=== PATIENT | male | born 1960 | race Caucasian/White ===

== ENCOUNTER 2022-10-14 12:42 | Inpatient (IN) ==
--- NOTE | 2022-10-14 13:39 | XRay Report ---
XR chest 2V PA/lateral CLINICAL HISTORY: Shortness of breath. COMPARISON STUDY: Thoracic spine CT April 28, 2020. FINDINGS: Moderate left lung volume loss is present. There is a small left pleural effusion. No pneum othorax. Right lung is clear. A 6.2 cm left perihilar mass-like opacity is present. There is moderate left lower lung airspace opacity. Cardiac size is normal. Leftward mediastinal shift and elevation o f the left hemidiaphragm is due to left lung volume loss. Old, healed distal right clavicular fractur e. IMPRESSION: 1. 6.2 cm left perihilar mass-like opacity with left lower lung airspace opacity and left lung volume loss. A chest CT with IV contrast is recommended to exclude a central obstructing mass. 2. Small left pleural effusion. ACT 112: Positive. There are findings on this exam that require communication between the performing entity and the patient following Patient Test Result Information Act ([place] Act 112) guidelines. Electronically signed by: Jace Call M.D. 10/14/2022 1:38 PM
[2022-10-14 14:01] LABS: Basophils # (auto) 0.02 K/uL (0-0.2); Basophils % (auto) 0.3 %; Eosinophils # (auto) 0.01 K/uL (0-0.50); Eosinophils % (auto) 0.1 %; Hematocrit (blood only) 40.6 % (40.1-51.0); Hemoglobin 13.6 g/dl (14.0-18.0); Immature Granulocytes # (auto) 0.02 K/uL (0.00-0.02); Immature Granulocytes % (auto) 0.3 %; Lymphocytes # (auto) 1.05 K/uL (1.2-3.4); Lymphocytes % (auto) 15.3 %; Mean Corpuscular Hgb Conc 33.5 g/dL (32.0-36.0); Mean Corpuscular Volume 86.6 fL (80.0-100.0); Mean Platelet Volume 9.8 fL (9.4-12.4); Monocytes # (auto) 0.65 K/uL (0.24-0.82); Monocytes % (auto) 9.4 %; Neutrophils # (auto) 5.13 K/uL (1.4-6.5); Neutrophils % (auto) 74.6 %; Platelet Count 193 K/uL (130-400); RDW Coefficient of Variation 13.2 % (11.5-14.5); Red Blood Count 4.69 M/uL (4.63-6.08); White Blood Count 6.88 K/ul (4.8-10.8)
[2022-10-14 14:17] LABS: Partial Thromboplastin Ratio 1.2; Partial Thromboplastin Time 33.6 Seconds (21.0-31.0); Prothrombin Time 10.3 Seconds (9.0-12.0)
[2022-10-14 14:28] LABS: Albumin Globulin Ratio 1.1 (0.9-2); BUN Creatinine Ratio 17.1 (10-20); Bilirubin,Total 0.4 mg/dl (0.2-1.0); Calcium 9.2 mg/dl (8.5-10.1); Creatinine Clr Calc Pharmacy 89.5 ml/min; Est GFR (African American) 114.1 ml/min; Est GFR (Non-African American) 98.5 ml/min; Globulin 3.7 gm/dl (2.5-4.0); Potassium 4.1 mmol/L (3.5-5.1); Total Protein 7.7 gm/dl (6.0-8.3); Troponin I High Sensitivity 3.6 pg/ml (0-20)
--- NOTE | 2022-10-14 14:40 | Electrocardiogram Report ---
Test Reason : Blood Pressure : / mmHG Vent. Rate : 097 BPM Atrial Rate : 097 BPM P-R Int : 116 ms QRS Dur : 092 ms QT Int : 346 ms P-R-T Axes : 072 080 069 degrees QTc Int : 439 ms Sinus rhythm with Premature atrial complexes Otherwise normal ECG No previous ECGs available Confirmed by Jordan Chen ([id number]) on 10/14/2022 2:39:56 PM Referred By: Confirmed By:Jordan Chen
[2022-10-14 15:04] LABS: Influenza B virus by PCR Negative (Neg); RSV by PCR Negative (Neg); SARS CoV2 RNA(COVID-19) Ceph NEGATIVE (Negative)
[2022-10-14 15:14] LABS: Influenza A virus by PCR Positive (Neg)
[2022-10-14] MEDS ORDERED: BENZONATATE 100 MG CAPSULE PO ONE (15:54)
[2022-10-14] MEDS ORDERED: KETOROLAC TROMETHAMINE 15 MG/ML VIAL IV ONE (15:54)
--- NOTE | 2022-10-14 16:02 | Emergency Department Note ---
Impression & Plan Breathlessness, Mass of left lung, Influenza A ED Provider Note Provider: Tomasz Calloway MD DATE OF SERVICE: 10/14/2022 CHIEF COMPLAINT: Shortness of breath, cough HISTORY OF PRESENT ILLNESS: Patient is a 61-year-old gentleman reporting over the past approximately 3 to 4 months (June) some worsening shortness of breath. States over the last 5 days more fatigued with increased cough. States he has a gurgling sensation prickly when he lays flat. Bit of pain across the chest he believes more from coughing. Reports some sinus congestion and mildly sore throat. Evidently he states his significant other is a bit ill as well. Denies significant vomiting or abdominal pain but reports a bit of nausea over the last couple of days; none currently.. States he has been losing some weight recently. States he has not seen anybody about this before and reports that he has not seen a doctor in about 8 years. PAST MEDICAL HISTORY: As noted above MEDICATIONS: Denies currently FMH: No reported history of lung cancer SOCIAL HISTORY: Former smoker, quit about 6 years ago PHYSICAL EXAM: GENERAL: alert and oriented in no acute distress on stretcher Head: normocephalic and atraumatic EYES: No injection, discharge or icterus. NECK: Trachea midline. ENT: Mucous membranes pink and moist. LUNGS: Airway patent. No retractions. Breath sounds some scattered rhonchi HEART: Regular rate and rhythm. No chest wall tenderness ABDOMEN: Soft and non-tender, without guarding or rebound. SKIN: Acyanotic, warm, dry, without rashes EXTREMITIES: Without swelling, tenderness or deformity NEUROLOGICAL: No focal deficits. No aphasia. No slurred speech. Ambulatory. EK bpm sinus rhythm with PACs. No PVC. No acute ST segment elevation or depression with QTC of 439 CONTINUOUS CARDIAC MONITORING: was ordered and showed a heart rate of 80s-90s bpm in normal sinus rhythm occasional PACs Patient's laboratory studies and imaging reviewed. Differential includes Reactive airway disease, pneumonia, pneumothorax, COPD, CHF, infections, cardiac ischemia, pulmonary embolism, musculoskeletal, gastrointestinal, as well as other pathologies. IMPRESSION/MEDICAL DECISION MAKING: Patient former smoker and has seen medical personnel in some years. Reports distantly on metformin. Has been losing weight recently. Chronic respiratory issues over the past several months. Worsened in the last approximately 4 to 5 days. Test positive for influenza A likely contributing to his cough and sinus symptoms. Reports a bit of chest discomfort mid to left chest prickly with cough. Denies leg swelling. Lower suspicion for VTE as he is not significant hypoxic but feels a bit short of breath predominantly at rest. Chest x-ray concerning for possible left lung mass. Borderline anemia but no significant leukocytosis. Very slight hyponatremia but no other severe electrolyte abno rmality. Glucose mildly elevated. No troponin elevation. Doubt this is cardiac in nature. Benign abdomen doubt acute intra-abdominal process question if some of his intermittent nausea has been related to the fluids has been only several days with this. Given the chest x-ray findings we will complete a CT of the chest for further evaluation of a possible mass particular that may have an obstructing quality. Patient does related that he was on some antibiotics a month or 2 ago that did not help. Given a Tessalon Perle and Toradol to help with symptoms here initially. Smoking history but quit previously; denies diagnosis of emphysema or COPD. CT imaging without evidence of blood clot noted per reports but evidence of a large left perihilar mass with possibly postobstructive pneumoni tis. Again without significant cytosis and positive flu believe likely more viral and lower suspicion for bacterial component. Did discuss with pulmonary here as well as the patient at bedside with concerns that this could represent an oncological process. Patient is a bit winded at rest although not hypoxic. Patient has significant concerns about being able to go home given this. Pulmonology anticipates bronchoscopy tomorrow for biopsy and further differentiation. Do not feel strongly either way regarding the use of Tamiflu and will defer to the hospitalist given that its been at least 5 days since the onset of his flu symptoms. Patient in agreement with this plan to stay for further work-up DIAGNOSIS: Left lung mass, shortness of breath, influenza A DISPOSITION: Hospitalist will evaluate Patient was agreeable with this plan. Past Med/Surg History Medical History (Updated 10/14/22 @ 19:13 by Bela Layton MD, [facility]) No pertinent past medical history Social History Smoking Status: Former smoker Preferred Language: Spanish Feels Safe at Home: Yes Allergies Allergies Allergy/AdvReac Type Severity Reaction Status Date / Time No Known Allergies Allergy Unverified 10/14/22 16:21 Home Meds Home Medications Medication Instructions Recorded Confirmed ibuprofen 200 mg tablet 400 mg PO Q6H PRN Pain 10/14/22 10/14/22 Results & Data (ED) Vital Signs Vital Signs - 24 hr 10/14/22 12:44 10/14/22 16:59 10/14/22 16:59 Temperature 36.9 C Temperature Source Temporal Artery Scan Pulse Rate 112 H Pulse Rate from SpO2 Sensor Respiratory Rate 20 18 Respiratory Effort / Characteristics Short of Breath Non-Labored Respiratory Depth Normal Respiratory Pattern Regular Blood Pressure 144/84 H Blood Pressure Mean 104 Blood Pressure Position Sitting Pulse Oximetry 95 Oxygen Delivery Method Room Air Room Air Sepsis Recent Fever Within 48 Hours No Sepsis New/Unexplained Change in Mental Status No Sepsis Action Taken by Nursing No Action Required 10/14/22 17:26 10/14/22 17:30 Temperature Temperature Source Pulse Rate 89 92 H Pulse Rate from SpO2 Sensor 88 94 H Respiratory Rate 22 22 Respiratory Effort / Characteristics Respiratory Depth Respiratory Pattern Blood Pressure 140/103 H Blood Pressure Mean 115 Blood Pressure Position Pulse Oximetry 97 97 Oxygen Delivery Method Sepsis Recent Fever Within 48 Hours Sepsis New/Unexplained Change in Mental Status Sepsis Action Taken by Nursing Laboratory Data 10/14/22 13:44 10/14/22 13:44 Lab Results 10/14/22 10/14/22 10/14/22 Range/Units 13:44 13:44 13:44 WBC 6.88 (4.8-10.8) K/ul RBC 4.69 (4.63-6.08) M/uL Hgb 13.6 L (14.0-18.0) g/dl Hct 40.6 (40.1-51.0) % MCV 86.6 (80.0-100.0) fL MCH 29.0 (25.0-34.0) pg MCHC 33.5 (32.0-36.0) g/dL RDW Std Deviation 41.0 (36.4-46.3) fL RDW Coeff of Mathieu 13.2 (11.5-14.5) % Plt Count 193 (130-400) K/uL MPV 9.8 (9.4-12.4) fL Immature Gran % (Auto) 0.3 % Neut % (Auto) 74.6 % Lymph % (Auto) 15.3 % [place] % (Auto) 9.4 % Eos % (Auto) 0.1 % Baso % (Auto) 0.3 % Neut # (Auto) 5.13 (1.4-6.5) K/uL Lymph # (Auto) 1.05 L (1.2-3.4) K/uL [place] # (Auto) 0.65 (0.24-0.82) K/uL Eos # (Auto) 0.01 (0-0.50) K/uL Baso # (Auto) 0.02 (0-0.2) K/uL Immature Gran # (Auto) 0.02 (0.00-0.02) K/uL PT 10.3 (9.0-12.0) Seconds INR 1.0 (0.9-1.1) APTT 33.6 H (21.0-31.0) Seconds PTT Ratio 1.2 Sodium 133 L (136-145) mmol/L Potassium 4.1 (3.5-5.1) mmol/L Chloride 99 (98-107) mmol/L Carbon Dioxide 26 (21-32) mmol/L Anion Gap 8 (3-11) BUN 13 (6-23) mg/dl Creatinine 0.76 (0.6-1.4) mg/dl Est Cr Clr Drug Dosing 89.5 ml/min Est GFR ( Amer) 114.1 ml/min Est GFR (Non-Af Amer) 98.5 ml/min BUN/Creatinine Ratio 17.1 (10-20) Glucose 113 H (70-99(Fasting)) mg/dl Calcium 9.2 (8.5-10.1) mg/dl Magnesium 2.0 (1.7-2.4) mg/dl Total Bilirubin 0.4 (0.2-1.0) mg/dl AST 15 (13-39) U/L ALT 9 (7-52) U/L Alkaline Phosphatase 86 (34-104) U/L Troponin I High Sens 3.6 (0-20) pg/ml Total Protein 7.7 (6.0-8.3) gm/dl Albumin 4.0 (3.4-5.0) gm/dl Globulin 3.7 (2.5-4.0) gm/dl Albumin/Globulin Ratio 1.1 (0.9-2) Procalcitonin (0-0.5) ng/ml SARS-CoV-2 (PCR) (Negative) Influenza Type A (PCR) (Neg) Influenza Type B (PCR) (Neg) RSV (RT-PCR) (Neg) 10/14/22 10/14/22 Range/Units 13:44 13:44 WBC (4.8-10.8) K/ul RBC (4.63-6.08) M/uL Hgb (14.0-18.0) g/dl Hct (40.1-51.0) % MCV (80.0-100.0) fL MCH (25.0-34.0) pg MCHC (32.0-36.0) g/dL RDW Std Deviation (36.4-46.3) fL RDW Coeff of Amthieu (11.5-14.5) % Plt Count (130-400) K/uL MPV (9.4-12.4) fL Immature Gran % (Auto) % Neut % (Auto) % Lymph % (Auto) % [place] % (Auto) % Eos % (Auto) % Baso % (Auto) % Neut # (Auto) (1.4-6.5) K/uL Lymph # (Auto) (1.2-3.4) K/uL [place] # (Auto) (0.24-0.82) K/uL Eos # (Auto) (0-0.50) K/uL Baso # (Auto) (0-0.2) K/uL Immature Gran # (Auto) (0.00-0.02) K/uL PT (9.0-12.0) Seconds INR (0.9-1.1) APTT (21.0-31.0) Seconds PTT Ratio Sodium (136-145) mmol/L Potassium (3.5-5.1) mmol/L Chloride (98-107) mmol/L Carbon Dioxide (21-32) mmol/L Anion Gap (3-11) BUN (6-23) mg/dl Creatinine (0.6-1.4) mg/dl Est Cr Clr Drug Dosing ml/min Est GFR ( Amer) ml/min Est GFR (Non-Af Amer) ml/min BUN/Creatinine Ratio (10-20) Glucose (70-99(Fasting)) mg/dl Calcium (8.5-10.1) mg/dl Magnesium (1.7-2.4) mg/dl Total Bilirubin (0.2-1.0) mg/dl AST (13-39) U/L ALT (7-52) U/L Alkaline Phosphatase (34-104) U/L Troponin I High Sens (0-20) pg/ml Total Protein (6.0-8.3) gm/dl Albumin (3.4-5.0) gm/dl Globulin (2.5-4.0) gm/dl Albumin/Globulin Ratio (0.9-2) Procalcitonin 0.05 (0-0.5) ng/ml SARS-CoV-2 (PCR) NEGATIVE (Negative) Influenza Type A (PCR) Positive A* (Neg) Influenza Type B (PCR) Negative (Neg) RSV (RT-PCR) Negative (Neg) Administered Medications Guaifenesin (Guaifenesin 600 Mg Tabcr) 600 mg PO Q12 [facility] Stop: 11/13/22 20:59 Last Admin: 10/14/22 23:36 Dose: 600 mg Documented By: SAMANTA Parenteral Electrolytes (Normosol-R) 1,000 mls @ 100 mls/hr IV .Q10H [facility] Stop: 10/15/22 04:14 Last Admin: 10/14/22 21:36 Dose: 100 mls/hr Documented By: SAMANTA Cefepime HCl 2,000 mg/ Syringe 20 mls @ 5 mls/min IV Q8H [facility]; Protocol Stop: 10/21/22 20:59 Last Admin: 10/14/22 23:37 Dose: 5 mls/min Documented By: SAMANTA Doxycycline Hyclate 100 mg/ (Dextrose) 110 mls @ 50 mls/hr IV Q12H [facility] Stop: 10/21/22 20:59 Last Admin: 10/14/22 23:37 Dose: 50 mls/hr Documented By: SAMANTA Ipratropium Alston (Ipratropium Alston Neb Soln 0.02% 2.5 Ml Vial) 0.5 mg INH Q6R [facility] Stop: 11/13/22 20:19 Last Admin: 10/14/22 21:41 Dose: 0.5 mg Documented By: ARY Levalbuterol HCl (Levalbuterol 1.25mg/0.5ml Neb) 1.25 mg INH Q6R [facility] Stop: 11/13/22 20:19 Last Admin: 10/14/22 21:41 Dose: 1.25 mg Documented By: ARY Sodium Chloride (Sodium Chlor 7% 4 Ml Neb) 4 ml NEB BIDR [facility] Stop: 11/13/22 20:19 Last Admin: 10/14/22 21:41 Dose: 4 ml Documented By: ARY Discontinued Medications Benzonatate (Benzonatate 100 Mg Capsule) 100 mg PO NOW ONE Stop: 10/14/22 15:55 Last Admin: 10/14/22 16:55 Dose: 100 mg Documented By: AURORA Gadobutrol (Gadobutrol 65ml Vial) 6 ml IV ONCE ONE Stop: 10/14/22 21:09 Last Admin: 10/14/22 21:09 Dose: 6 ml Documented By: EZ Ioversol (Optiray 320 500ml) 92 ml IV ONCE ONE Stop: 10/14/22 16:17 Last Admin: 10/14/22 16:16 Dose: 92 ml Documented By: YUVAL Ketorolac Tromethamine (Ketorolac Tromethamine 15 Mg/Ml Vial) 10 mg IV NOW ONE Stop: 10/14/22 15:55 Last Admin: 10/14/22 16:55 Dose: 10 mg Documented By: AURORA Imaging Data Radiologist's Impression: Chest X-Ray 10/14/22 12:48 XR chest 2V PA/lateral CLINICAL HISTORY: Shortness of breath. COMPARISON STUDY: Thoracic spine CT April 28, 2020. FINDINGS: Moderate left lung volume loss is present. There is a small left pleural effusion. No pneumothorax. Right lung is clear. A 6.2 cm left perihilar mass-like opacity is present. There is moderate left lower lung airspace opacity. Cardiac size is normal. Leftward mediastinal shift and elevation of the left hemidiaphragm is due to left lung volume loss. Old, healed distal right clavicular fracture. IMPRESSION: 1. 6.2 cm left perihilar mass-like opacity with left lower lung airspace opacity and left lung volume loss. A chest CT with IV contrast is recommended to exclude a central obstructing mass. 2. Small left pleural effusion. ACT 112: Positive. There are findings on this exam that require communication between the performing entity and the patient following Patient Test Result Information Act ([place] Act 112) guidelines. Electronically signed by: Jace Call M.D. 10/14/2022 1:38 PM Chest CTA 10/14/22 15:53 CT SCAN OF THE CHEST WITH IV CONTRAST CLINICAL HISTORY: Abnormal chest x-ray. Left lung masslike opacity. Dyspnea. COMPARISON STUDY: Chest x-ray dated 10/14/2022. TECHNIQUE: Following the IV administration of 92 cc of Optiray 320, CT scan of the thorax was performed from the thoracic inlet to the upper abdomen. Images are reviewed in the axial, sagittal, and coronal planes. IV contrast was administered without complication. A dose lowering technique was utilized adhering to the principles of ALARA. CT DOSE: 277.44 mGy.cm FINDINGS: Thyroid: Imaged portions of the thyroid gland are normal in size and attenuation. Thoracic aorta: There is atherosclerotic calcification of the thoracic aorta, which is normal in caliber and demonstrates standard 3-vessel arch anatomy. No dissection is seen. Pulmonary vasculature: The pulmonary trunk is normal in caliber. There are no filling defects identified in the central pulmonary vessels to indicate pulmonary embolus. Note that this examination was not protocoled for evaluation of the pulmonary arteries. The distal left main pulmonary artery and the left lower lobe pulmonary artery are markedly attenuated by the left lower lobe mass lesion. The segmental and subsegmental vessels are suboptimally assessed due to motion artifact. Heart: The heart is normal in size and without pericardial effusion. There are scattered coronary artery calcifications. Lungs and pleural spaces: Moderate emphysematous changes noted. The trachea and right central airway are clear. There is near complete opacification of the left mainstem bronchus as well as the left upper, middle, and lower lobe airways. There is an ill-defined left perihilar mass lesion, which measures approximately 6 x 5 x 5.5 cm as seen on image #183. This invades the left hilum and encases the left-sided bronchi and pulmonary vessels. These are significantly narrowed or occluded. Opacities throughout the left lung likely represent postobstructive pneumonitis. This is greatest at the left lung base. There is a small left pleural effusion. There is volume loss in the left lung with compensatory hyperinflation of the right lung. Peribronchial thickening is seen throughout the right lung suggesting bronchitis/reactive airway disease. The right-sided pulmonary lesion is seen. Mediastinum: There are mildly enlarged adjacent lymph nodes. An AP window vesna aggregate on image #214 measures 1.9 x 1.7 cm. A subcarinal node measures 1.6 cm in short axis. Katelynn: The left hilum is largely obscured by the mass lesion. Mildly enlarged right hilar nodes measure up to 14 mm short axis. Axillae: There is no axillary lymphadenopathy. Upper abdomen: Partially visualized upper abdominal viscera is within normal limits. Skeletal structures: No lytic or blastic bony lesions are seen. Mild degenerative change is noted in the shoulders and thoracic spine. There is chronic posttraumatic deformity of the distal right clavicle. IMPRESSION: 1. There is no evidence of pulmonary embolus in the main, lobar, or segmental pulmonary arteries. Note that the segmental and subsegmental vessels are suboptimally assessed due to motion artifact. 2. Mild emphysema. 3. There is a large infiltrative left perihilar mass lesion which measures approximately 6 cm in length. This encases and occludes the bronchovascular structures of the left hilum. Lung cancer is the diagnosis of exclusion. 4. Airspace opacities are seen throughout the left lung, greatest at the left lung base. This likely represents postobstructive pneumonitis. Lymphangitic spread of tumor would be impossible to exclude. 5. There is volume loss in the left lung with compensatory hypertrophy of the right lung. 6. Mildly enlarged mediastinal and right hilar lymph nodes are indeterminate. No metastatic disease is not excluded. 7. Small left pleural effusion. 8. Additional findings as above. ACT 112: Negative or not required by law. Electronically signed by: Jono Blanco M.D. 10/14/2022 4:52 PM Discharge Plan Visit Data Chief Complaint: Shortness of Breath/Dyspnea Stated Complaint: SOB,TIGHTNESS IN CHEST ED Provider: Tomasz Calloway Discharge Problem: Breathlessness, Mass of left lung, Influenza A Patient Disposition: Being Evaluated by Hospitalist Discharge Instructions Interventions: ED Discharge Assessment Last Done: 10/14/22 20:21
[2022-10-14] MEDS ORDERED: OPTIRAY 320 500ml IV ONE (16:16)
--- NOTE | 2022-10-14 16:54 | CT Scan Report ---
CT SCAN OF THE CHEST WITH IV CONTRAST CLINICAL HISTORY: Abnormal chest x-ray. Left lung masslike opacity. Dyspnea. COMPARISON STUDY: Chest x-ray dated 10/14/2022. TECHNIQUE: Following the IV administration of 92 cc of Optiray 320, CT scan of the thorax was perform ed from the thoracic inlet to the upper abdomen. Images are reviewed in the axial, sagittal, and joyce nal planes. IV contrast was administered without complication. A dose lowering technique was utilize d adhering to the principles of ALARA. CT DOSE: 277.44 mGy.cm FINDINGS: Thyroid: Imaged portions of the thyroid gland are normal in size and attenuation. Thoracic aorta: There is atherosclerotic calcification of the thoracic aorta, which is normal in blue candelario and demonstrates standard 3-vessel arch anatomy. No dissection is seen. Pulmonary vasculature: The pulmonary trunk is normal in caliber. There are no filling defects identif ied in the central pulmonary vessels to indicate pulmonary embolus. Note that this examination was no t protocoled for evaluation of the pulmonary arteries. The distal left main pulmonary artery and the left lower lobe pulmonary artery are markedly attenuated by the left lower lobe mass lesion. The segm ental and subsegmental vessels are suboptimally assessed due to motion artifact. Heart: The heart is normal in size and without pericardial effusion. There are scattered coronary art angel calcifications. Lungs and pleural spaces: Moderate emphysematous changes noted. The trachea and right central airway are clear. There is near complete opacification of the left mainstem bronchus as well as the left upp er, middle, and lower lobe airways. There is an ill-defined left perihilar mass lesion, which measure s approximately 6 x 5 x 5.5 cm as seen on image #183. This invades the left hilum and encases the lef t-sided bronchi and pulmonary vessels. These are significantly narrowed or occluded. Opacities throug hout the left lung likely represent postobstructive pneumonitis. This is greatest at the left lung ba se. There is a small left pleural effusion. There is volume loss in the left lung with compensatory h yperinflation of the right lung. Peribronchial thickening is seen throughout the right lung suggestin g bronchitis/reactive airway disease. The right-sided pulmonary lesion is seen. Mediastinum: There are mildly enlarged adjacent lymph nodes. An AP window vesna aggregate on image #2 14 measures 1.9 x 1.7 cm. A subcarinal node measures 1.6 cm in short axis. Katelynn: The left hilum is largely obscured by the mass lesion. Mildly enlarged right hilar nodes measur e up to 14 mm short axis. Axillae: There is no axillary lymphadenopathy. Upper abdomen: Partially visualized upper abdominal viscera is within normal limits. Skeletal structures: No lytic or blastic bony lesions are seen. Mild degenerative change is noted in the shoulders and thoracic spine. There is chronic posttraumatic deformity of the distal right clavic le. IMPRESSION: 1. There is no evidence of pulmonary embolus in the main, lobar, or segmental pulmonary arteries. Not e that the segmental and subsegmental vessels are suboptimally assessed due to motion artifact. 2. Mild emphysema. 3. There is a large infiltrative left perihilar mass lesion which measures approximately 6 cm in brando th. This encases and occludes the bronchovascular structures of the left hilum. Lung cancer is the di agnosis of exclusion. 4. Airspace opacities are seen throughout the left lung, greatest at the left lung base. This likely represents postobstructive pneumonitis. Lymphangitic spread of tumor would be impossible to exclude. 5. There is volume loss in the left lung with compensatory hypertrophy of the right lung. 6. Mildly enlarged mediastinal and right hilar lymph nodes are indeterminate. No metastatic disease i s not excluded. 7. Small left pleural effusion. 8. Additional findings as above. ACT 112: Negative or not required by law. Electronically signed by: Jono Blanco M.D. 10/14/2022 4:52 PM
--- NOTE | 2022-10-14 17:43 | Pulmonary Consultation ---
Date of Consultation October 14, 2022 Assessment & Plan (1) Postobstructive pneumonia: (2) Mass of left lung: (3) Influenza A: (4) Shortness of breath: (5) Weight loss: (6) Ex-smoker: (7) Abnormal chest CT: Plan CT chest 10/14/2022 personally reviewed: Left hilar mass with obstruction of the left lower lobe, volume loss on the left side Postoperative consolidative process, small left-sided pleural effusion Significant mediastinal lymphadenopathy -- Left hilar mass with mediastinal lymphadenopathy 6 cm with postobstructive pneumonia Like represents primary malignancy -- Influenza A positive Symptoms started 10/09/2022 Patient is past the benefit from oseltamivir --Ex-smoker Approximately [id number] smoking history Quit at the age of 55 Plan: We will plan to do EBUS tomorrow Hold anticoagulation Follow-up procalcitonin. Okay to give antibiotic for postobstructive pneumonia for the time being. MRI of the brain to rule out mets Please note the above document was generated using voice recognition software. It may contain grammatical, syntax or spelling errors.Any formal questions or concerns about the content, text or information contained within the body of this dictation should be directly addressed to the provider for clarification. History of Present Illness History of Present Illness 61-year-old male coming to the hospital with complaints of shortness of breath Past medical history: Noncontributory Patient has never sought medical attention. Per he has been having issues with shortness of breath dating back to June. He had multiple bouts of hemoptysis in the middle as well which used to resolve on its own. He had malaise and subjective fever night to Thursday morning. Subsequently he started to feel better Does complain of difficulty sleeping especially on the left side with gurgling voice. Has lost approximately 8 pounds since 1 week and even more since June. Denies any difficulty swallowing Denies any hemoptysis right now No dysuria, no diarrhea. Does complain of occasional headache which is new. Has had chronic blurry vision. Social history: Approximately [id number] smoking history, quit at the age of 55 Allergies Allergy/AdvReac Type Severity Reaction Status Date / Time No Known Allergies Allergy Unverified 10/14/22 16:21 Home Medications Medication Instructions Recorded Confirmed Type ibuprofen 200 mg tablet 400 mg PO Q6H PRN Pain 10/14/22 10/14/22 History Patient History Medical History (Updated 10/14/22 @ 19:13 by Bela Layton MD, [facility]) No pertinent past medical history Social History Smoking Status: Former smoker Preferred Language: Nepali Feels Safe at Home: Yes Review of Systems Review of Systems: All systems reviewed & are unremarkable except as noted in HPI & below Physical Exam Physical Exam: Constitutional: No acute distress HEENT: EOMI, PERRLA, no cervical lymphadenopathy Respiratory system: Decreased air entry on the left side, no wheeze, no rhonchi, positive crackles left side CVS: S1-S2 positive, no murmurs or gallops Abdomen: Soft, nontender, nondistended, positive bowel sounds x4 Extremities: +2 pulses bilaterally radialis/ dorsalis pedis, no cyanosis, no edema, no clubbing Neuro: Awake alert oriented x3 Psych: Normal mood and affect G/U: No Cosby Skin: no rashes, warm and dry Lymphatic: no cervical or axillary lymphadenopathy Results & Data Results & Data ([facility]) Vital Signs (Past 12 Hours) Vital Signs Temp Pulse Resp BP Pulse Ox O2 Del Method 10/14/22 17:26 89 22 140/103 H 97 10/14/22 16:59 18 10/14/22 16:59 Room Air 10/14/22 12:44 36.9 C 112 H 20 144/84 H 95 Room Air Laboratory Results 10/14/22 13:44 10/14/22 13:44 PG Care Time/CCT Total # of Minutes Spent Total Time Spent with Patient: Total time spent is greater than 50% in coordination of care (as documented) at patient's floor/unit and/or counseling patient: Coding Level of Care Code 01173 INT INP/OBS CARE 3/75MIN Diagnoses Postobstructive pneumonia J18.9 Mass of left lung R91.8 Influenza A J10.1 Shortness of breath R06.02 Weight loss R63.4 Ex-smoker Z87.[address] R93.89
[2022-10-14] MEDS ORDERED: NORMOSOL-R 1,000 ML IV SCH (18:15)
--- NOTE | 2022-10-14 18:23 | History & Physical Report ---
Date of Service October 14, 2022 Assessment & Plan (1) Mass of left lung: (2) Influenza A: (3) Postobstructive pneumonia: Plan: 61-year-old male with history of diabetes type 2, allergic rhinitis, hepatitis C-chronic Presenting with progressive shortness of breath worsening the past few days. SHORTNESS OF BREATH SECONDARY TO LEFT LUNG MASS, POSTOBSTRUCTIVE PNEUMONIA INFLUENZA A INFECTION Follow-up blood culture, sputum culture, nasal MRSA swab Start cefepime plus doxycycline IV Xopenex and Atrovent nebulizers every 6 hours Patient out of the window for Tamiflu, not recommended per pulmonology service Mucinex twice a day Incentive spirometer Flutter valve Pulmonology service consulted-plan for bronchoscopy tomorrow morning N.p.o. postmidnight Brain MRI with and without contrast IV fluids HISTORY OF DIABETES TYPE 2 Not taking medications Check A1c History of chronic hepatitis C DVT prophylaxis SCDs for now in light of bronchoscopy with possible biopsy tomorrow Disposition Anticipate discharge to home medically stable Will need to reestablish with primary care physician-has not followed PCP for many years plan of care discussed with patient in detail and at length all questions answered he is understanding, agreeable, comfortable with the plan of care History of Present Illness Primary Care Provider: NO PCP 61-year-old male with history of diabetes type 2, allergic rhinitis, hepatitis C-chronic Presenting with progressive shortness of breath worsening the past few days. Patient reports that since June, he he has been experiencing dyspnea with exertion, orthopnea and unintentional weight loss. With a past few days, patient has had worsening of the dyspnea associated with dry cough, fatigue, sinus congestion. Patient presented to the ER for further evaluation. At the ER, patient receiving amply stable, afebrile, with O2 sats more than 90%. CT scanning of the chest reveals large lung mass with possible postobstructive pneumonia. No pulmonary embolism identified. Patient referred to hospital service for admission. On exam, patient is seen resting in bed, comfortable, not in distress Allergies Allergy/AdvReac Type Severity Reaction Status Date / Time No Known Allergies Allergy Unverified 10/14/22 16:21 Home Medications Medication Instructions Recorded Confirmed Type ibuprofen 200 mg tablet 400 mg PO Q6H PRN Pain 10/14/22 10/14/22 History Past Med/Surg History Medical History (Updated 10/14/22 @ 19:13 by Bela Layton MD, [facility]) No pertinent past medical history Social History Smoking Status: Former smoker Preferred Language: Sinhala Feels Safe at Home: Yes Review of Systems Review of Systems: all noted and negative except for above Physical Exam Physical Exam: General- oriented x 3, not in distress, speaks in sentences with no effort or accessory muscle use Head- atraumatic Eyes- PERRL, EOMI, anicteric ENT- oropharynx clear Neck- supple, no JVD, no adenopathy, no thyromegaly; carotids +2/2, no bruits appreciated Lungs-clear breath sounds on the right Left- Heart- normal rate, regular rhythm; no murmur, no gallop, no rub appreciated Abdomen- normal bowel sounds, nondistended, soft, nontender, no masses or hepatosplenomegaly Extremities- no pretibial edema, no calf tenderness; peripheral pulses intact Neuro- alert, oriented x 3; CN 2-12 grossly intact; motor 5/5 bilaterally;sensation 100% on all extremities; no other gross focal neurologic deficits Skin- warm & dry Results & Data Results & Data ([facility]) Vital Signs (Past 12 Hours) Vital Signs Temp Pulse Resp BP Pulse Ox O2 Del Method 10/14/22 17:26 89 22 140/103 H 97 10/14/22 16:59 18 10/14/22 16:59 Room Air 10/14/22 12:44 36.9 C 112 H 20 144/84 H 95 Room Air all noted and reviewed including below Code Status & VTE Plan VTE Prophylaxis Plan VTE Prophylaxis will be ordered: Yes
--- NOTE | 2022-10-14 18:42 | Anesthesiology Consultation ---
Date of Service October 14, 2022 Assessment & Plan (1) Encounter for pre-operative examination: Chart Review Chart Review: licensed direct entry midwife initiated History Height/Weight Height: 5 ft 7 in Weight: 62 kg Allergies Allergy/AdvReac Type Severity Reaction Status Date / Time No Known Allergies Allergy Unverified 10/14/22 16:21 Medications Home Medications Medication Instructions Recorded Confirmed Last Taken ibuprofen 200 mg tablet 400 mg PO Q6H PRN Pain 10/14/22 10/14/22 Unknown Past Medical History Medical History (Updated 10/14/22 @ 18:43 by Tomasz Dyson DO) No pertinent past medical history Social History Smoking Status: Former smoker Physical Exam Vital Signs Last Vital Signs Temp 98.4 F 10/14/22 12:44 Pulse 85 10/14/22 18:00 Resp 19 10/14/22 18:00 BP 145/88 H 10/14/22 18:00 Pulse Ox 98 10/14/22 18:00 O2 Del Method 10/14/22 16:59 Testing Laboratory Results 10/14/22 13:44 10/14/22 13:44 PT 10.3 Seconds (9.0-12.0) 10/14/22 13:44 INR 1.0 (0.9-1.1) 10/14/22 13:44 APTT 33.6 Seconds (21.0-31.0) H 10/14/22 13:44 Electrocardiogram Date: 10/14/22 Sinus rhythm with Premature atrial complexes, rate 97 bpm Otherwise normal ECG No previous ECGs available Confirmed by Jordan Chen ([id number]) on 10/14/2022 2:39:56 PM Chest X-Ray Date: 10/14/22 FINDINGS: Moderate left lung volume loss is present. There is a small left pleural effusion. No pneumothorax. Right lung is clear. A 6.2 cm left perihilar mass-like opacity is present. There is moderate left lower lung airspace opacity. Cardiac size is normal. Leftward mediastinal shift and elevation of the left hemidiaphragm is due to left lung volume loss. Old, healed distal right clavicular fracture. IMPRESSION: 1. 6.2 cm left perihilar mass-like opacity with left lower lung airspace opacity and left lung volume loss. A chest CT with IV contrast is recommended to exclude a central obstructing mass. 2. Small left pleural effusion. Other Testing Chest CTA 10/14/22 FINDINGS: Thyroid: Imaged portions of the thyroid gland are normal in size and attenuation. Thoracic aorta: There is atherosclerotic calcification of the thoracic aorta, which is normal in caliber and demonstrates standard 3-vessel arch anatomy. No dissection is seen. Pulmonary vasculature: The pulmonary trunk is normal in caliber. There are no filling defects identified in the central pulmonary vessels to indicate pulmonary embolus. Note that this examination was not protocoled for evaluation of the pulmonary arteries. The distal left main pulmonary artery and the left lower lobe pulmonary artery are markedly attenuated by the left lower lobe mass lesion. The segmental and subsegmental vessels are suboptimally assessed due to motion artifact. Heart: The heart is normal in size and without pericardial effusion. There are scattered coronary artery calcifications. Lungs and pleural spaces: Moderate emphysematous changes noted. The trachea and right central airway are clear. There is near complete opacification of the left mainstem bronchus as well as the left upper, middle, and lower lobe airways. There is an ill-defined left perihilar mass lesion, which measures approximately 6 x 5 x 5.5 cm as seen on image #183. This invades the left hilum and encases the left-sided bronchi and pulmonary vessels. These are significantly narrowed or occluded. Opacities throughout the left lung likely represent postobstructive pneumonitis. This is greatest at the left lung base. There is a small left pleural effusion. There is volume loss in the left lung with compensatory hyperinflation of the right lung. Peribronchial thickening is seen throughout the right lung suggesting bronchitis/reactive airway disease. The right-sided pulmonary lesion is seen. Mediastinum: There are mildly enlarged adjacent lymph nodes. An AP window vesna aggregate on image #214 measures 1.9 x 1.7 cm. A subcarinal node measures 1.6 cm in short axis. Katelynn: The left hilum is largely obscured by the mass lesion. Mildly enlarged right hilar nodes measure up to 14 mm short axis. Axillae: There is no axillary lymphadenopathy. Upper abdomen: Partially visualized upper abdominal viscera is within normal limits. Skeletal structures: No lytic or blastic bony lesions are seen. Mild degenerative change is noted in the shoulders and thoracic spine. There is chronic posttraumatic deformity of the distal right clavicle. IMPRESSION: 1. There is no evidence of pulmonary embolus in the main, lobar, or segmental pulmonary arteries. Note that the segmental and subsegmental vessels are suboptimally assessed due to motion artifact. 2. Mild emphysema. 3. There is a large infiltrative left perihilar mass lesion which measures approximately 6 cm in length. This encases and occludes the bronchovascular structures of the left hilum. Lung cancer is the diagnosis of exclusion. 4. Airspace opacities are seen throughout the left lung, greatest at the left lung base. This likely represents postobstructive pneumonitis. Lymphangitic spread of tumor would be impossible to exclude. 5. There is volume loss in the left lung with compensatory hypertrophy of the right lung. 6. Mildly enlarged mediastinal and right hilar lymph nodes are indeterminate. No metastatic disease is not excluded. 7. Small left pleural effusion. 8. Additional findings as above.
--- NOTE | 2022-10-14 20:03 | XRay Report ---
ORBIT RADIOGRAPHS 3 VIEWS HISTORY: pre-MRI screening. COMPARISON: None. FINDINGS: There are no unexpected radiopaque foreign bodies identified within the orbits. Surgical ma terial from internal fixation of the right orbital floor is noted. This is not contraindication to MR I. IMPRESSION: No unexpected radiopaque foreign bodies identified within the orbits. ACT 112: Negative or not required by law. Electronically signed by: Jace Call M.D. 10/14/2022 8:01 PM
[2022-10-14] MEDS ORDERED: XOPENEX/ATROVENT 1.25mg/0.5MG NEB COMBO NEB SCH (20:20)
[2022-10-14] MEDS ORDERED: GADOBUTROL 65ML VIAL IV ONE (21:08)
[2022-10-14] MEDS: SODIUM CHLOR 7% 4 ML NEB NEB SCH (21:41)
[2022-10-14] MEDS: LEVALBUTEROL 1.25MG/0.5ML NEB INH SCH (21:41)
[2022-10-14] MEDS: IPRATROPIUM BROMIDE NEB SOLN 0.02% 2.5 ML VIAL INH SCH (21:41)
[2022-10-14] MEDS: guaiFENesin 600 MG TABCR PO SCH (23:36)
[2022-10-14] MEDS: DOXYCYCLINE HYCLATE 100 MG in DEXTROSE 5% 100 ML IV SCH (23:37)
[2022-10-14] MEDS: CEFEPIME 2,000 MG in SYRINGE 0 ML IV SCH (23:37)
[2022-10-15] MEDS: IPRATROPIUM BROMIDE NEB SOLN 0.02% 2.5 ML VIAL INH SCH ×4 (00:44→17:52)
[2022-10-15] MEDS: LEVALBUTEROL 1.25MG/0.5ML NEB INH SCH ×4 (00:44→17:53)
[2022-10-15] MEDS: CEFEPIME 2,000 MG in SYRINGE 0 ML IV SCH ×3 (05:48→21:56)
[2022-10-15] MEDS: SODIUM CHLOR 7% 4 ML NEB NEB SCH (06:15)
[2022-10-15 07:18] LABS: Hematocrit (blood only) 35.4 % (40.1-51.0); Hemoglobin 11.9 g/dl (14.0-18.0); Mean Corpuscular Hemoglobin 28.5 pg (25.0-34.0); Mean Corpuscular Hgb Conc 33.6 g/dL (32.0-36.0); Mean Corpuscular Volume 84.9 fL (80.0-100.0); Mean Platelet Volume 10.2 fL (9.4-12.4); Platelet Count 146 K/uL (130-400); RDW Coefficient of Variation 13.1 % (11.5-14.5); RDW Standard Deviation 40.5 fL (36.4-46.3); Red Blood Count 4.17 M/uL (4.63-6.08); White Blood Count 6.54 K/ul (4.8-10.8)
[2022-10-15 07:21] LABS: Estimated Average Glucose 128 mg/dl; Hemoglobin A1C 6.1 % (4.5-5.6)
[2022-10-15 07:46] LABS: BUN Creatinine Ratio 17.2 (10-20); Calcium 7.8 mg/dl (8.5-10.1); Est GFR (African American) 122.5 ml/min; Est GFR (Non-African American) 105.7 ml/min; Potassium 3.9 mmol/L (3.5-5.1)
[2022-10-15 07:55] LABS: Basophils # (auto) 0.02 K/uL (0-0.2); Basophils % (auto) 0.3 %; Echinocytes 1+; Eosinophils # (auto) 0.02 K/uL (0-0.50); Eosinophils % (auto) 0.3 %; Immature Granulocytes # (auto) 0.04 K/uL (0.00-0.02); Immature Granulocytes % (auto) 0.6 %; Lymphocytes # (auto) 1.14 K/uL (1.2-3.4); Lymphocytes % (auto) 17.4 %; Monocytes # (auto) 0.66 K/uL (0.24-0.82); Monocytes % (auto) 10.1 %; Neutrophils # (auto) 4.66 K/uL (1.4-6.5); Neutrophils % (auto) 71.3 %
--- NOTE | 2022-10-15 08:16 | Magnetic Resonance Report ---
MRI OF THE BRAIN COMBO CLINICAL HISTORY: Lung mass. Metastatic survey. COMPARISON STUDY: No priors. TECHNIQUE: MRI of the brain was performed utilizing various T1 and T2-weighted sequences in the axial , sagittal, and coronal planes. Contrast-enhanced sequences were acquired following the administratio n of 6 cc of Gadavist. FINDINGS: Brain parenchyma: There is minimal microangiopathic change. There is no hemorrhage or mass effect. Th ere is no restricted diffusion to suggest acute ischemia. No enhancing mass lesion is identified on t he postcontrast images. Brumfield-white matter differentiation is preserved. No extra-axial fluid collecti on is seen. The cerebellar tonsils are normal in configuration. Ventricles, sulci, and cisterns: Normal in configuration. Pituitary and sella: Unremarkable. Intracranial vasculature: Normal flow voids are maintained at the skull base. Orbits: The bony orbits are grossly intact. Orbital contents are normal in appearance. Sinuses and mastoids: There is moderate mucosal thickening with an air-fluid level in the right maxil leland antrum. Mild mucosal thickening seen within the ethmoid sinuses. The remaining paranasal sinuses are clear. There is a right mastoid effusion. Calvarium: Unremarkable. Cervical cord: Partially visualized cervical spinal cord is normal in morphology and signal intensity . IMPRESSION: No acute intracranial abnormality is identified. Specifically, there is no evidence of in tracranial metastatic disease as clinically queried. ACT 112: Negative or not required by law. Electronically signed by: Jono Blanco M.D. 10/15/2022 8:14 AM
[2022-10-15] MEDS: guaiFENesin 600 MG TABCR PO SCH ×2 (08:22→21:56)
[2022-10-15] MEDS: DOXYCYCLINE HYCLATE 100 MG in DEXTROSE 5% 100 ML IV SCH ×2 (08:22→22:00)
--- NOTE | 2022-10-15 09:56 | Pulmonology Progress Note ---
Date of Service October 15, 2022 Assessment & Plan (1) Postobstructive pneumonia: (2) Mass of left lung: (3) Influenza A: (4) Shortness of breath: (5) Weight loss: (6) Ex-smoker: (7) Abnormal chest CT: Plan CT chest 10/14/2022 personally reviewed: Left hilar mass with obstruction of the left lower lobe, volume loss on the left side Postoperative consolidative process, small left-sided pleural effusion Significant mediastinal lymphadenopathy -- Left hilar mass with mediastinal lymphadenopathy 6 cm with postobstructive pneumonia Like represents primary malignancy Procalcitonin 0.05 COVID-19 PCR, RSV negative MRI of the brain 10/15/22 is negative for metastatic disease -- Influenza A positive Symptoms started 10/09/2022 Patient is past the benefit from oseltamivir --Ex-smoker Approximately [id number] smoking history Quit at the age of 55 Plan: For EBUS today Risk and benefit of the procedure explained the patient in depth. He understands and wants to go ahead with the procedure Consent signed, witnessed and put in the chart Please note the above document was generated using voice recognition software. It may contain grammatical, syntax or spelling errors.Any formal questions or concerns about the content, text or information contained within the body of this dictation should be directly addressed to the provider for clarification. Admission and Anticipated Discharge Date Admission Date: October 14, 2022 Subjective Patient seen and examined at bedside. No acute distress, vitals events overnigh t Saturating 95 to 96% on room air. Denies any chest pain, no headache, no nausea, no vomiting No hemoptysis. Review of Systems Review of Systems: All systems reviewed & are unremarkable except as noted in Subjective Physical Exam Physical Exam: Constitutional: No acute distress HEENT: EOMI, PERRLA, no cervical lymphadenopathy Respiratory system: Decreased air entry on the left side, no wheeze, no rhonchi, positive crackles left side CVS: S1-S2 positive, no murmurs or gallops Abdomen: Soft, nontender, nondistended, positive bowel sounds x4 Extremities: +2 pulses bilaterally radialis/ dorsalis pedis, no cyanosis, no edema, no clubbing Neuro: Awake alert oriented x3 Psych: Normal mood and affect G/U: No Cosby Skin: no rashes, warm and dry Lymphatic: no cervical or axillary lymphadenopathy Results & Data Results & Data ([facility]) Vital Signs (Past 12 Hours) Vital Signs Pulse Pulse Resp BP BP Pulse Ox Pulse Ox 10/15/22 08:05 95 H 18 143/89 H 96 10/15/22 06:00 91 H 21 97 10/15/22 05:30 94 H 26 H 97 10/15/22 05:00 86 22 96 10/15/22 04:54 124/79 10/15/22 04:54 84 24 94 10/15/22 04:30 94 H 24 95 10/15/22 04:00 91 H 27 H 95 10/15/22 03:30 89 28 H 97 10/15/22 03:00 87 32 H 10/15/22 06:03 85 18 97 10/15/22 02:32 98 H 20 95 10/15/22 02:00 91 H 22 95 10/15/22 01:30 89 28 H 96 10/15/22 01:05 96 10/15/22 00:30 94 H 19 96 10/15/22 00:00 94 H 28 H 95 10/14/22 23:30 99 H 20 94 10/14/22 23:00 95 H 19 92 10/14/22 22:30 91 H 19 97 10/14/22 22:00 101 H 26 H 10/15/22 01:14 10/15/22 01:14 95 10/15/22 00:44 87 16 97 10/14/22 23:55 91 H 18 137/87 95 O2 Del Method O2 Del Method 10/15/22 08:05 Room Air 10/15/22 06:00 10/15/22 05:30 10/15/22 05:00 10/15/22 04:54 10/15/22 04:54 10/15/22 04:30 10/15/22 04:00 10/15/22 03:30 10/15/22 03:00 10/15/22 06:03 Room Air 10/15/22 02:32 10/15/22 02:00 10/15/22 01:30 10/15/22 01:05 10/15/22 00:30 10/15/22 00:00 10/14/22 23:30 10/14/22 23:00 10/14/22 22:30 10/14/22 22:00 10/15/22 01:14 Room Air 10/15/22 01:14 Room Air 10/15/22 00:44 Room Air 10/14/22 23:55 Room Air Laboratory Results 10/15/22 06:44 10/15/22 06:44 PG Care Time/CCT Total # of Minutes Spent Total Time Spent with Patient: Total time spent is greater than 50% in coordination of care (as documented) at patient's floor/unit and/or counseling patient: Coding Level of Care Code 30600 SUB INP/OBS CARE 3/50MIN Diagnoses Postobstructive pneumonia J18.9 Mass of left lung R91.8 Influenza A J10.1 Shortness of breath R06.02 Weight loss R63.4 Ex-smoker Z87.[address] R93.89
[2022-10-15] MEDS ORDERED: fentaNYL citrate 100 MCG/2 ML VIAL IV PRN (12:20)
[2022-10-15] MEDS ORDERED: ONDANSETRON INJ 2 MG/ML 2 ML VIAL IV PRN (12:20)
[2022-10-15] MEDS ORDERED: HYDROmorphone INJ 1 MG/ML SYRINGE IV PRN (12:20)
[2022-10-15] MEDS ORDERED: MEPERIDINE HCL 25 MG/ML CARP/VIAL IV PRN (12:20)
[2022-10-15] MEDS ORDERED: ATROPINE SULFATE 0.1 MG/ML 10ML SYR IV PRN (12:20)
[2022-10-15] MEDS ORDERED: LABETALOL HCL IV 5 MG/ML 20ML IV PRN (12:20)
[2022-10-15] MEDS ORDERED: ePHEDrine sulfate 50 MG/ML AMP IV PRN (12:20)
[2022-10-15] MEDS ORDERED: PHENYLEPHRINE 100MCG/ML 5ML SYR IV PRN (12:20)
[2022-10-15] MEDS ORDERED: MIDAZOLAM HCL 1 MG/ML 2ML VIAL ONE (12:45)
[2022-10-15] MEDS ORDERED: fentaNYL citrate 100 MCG/2 ML VIAL ONE (12:45)
[2022-10-15] MEDS ORDERED: LIDOCAINE 2% MPF LOCAL 5 ML VIAL INFIL ONE (13:06)
[2022-10-15] MEDS ORDERED: ONDANSETRON INJ 2 MG/ML 2 ML VIAL ONE (13:06)
[2022-10-15] MEDS ORDERED: PROPOFOL IV EMULSION 10 MG/ML 20 ML VIAL IV ONE ×3 (13:07→13:49)
[2022-10-15] MEDS ORDERED: PHENYLEPHRINE HCL 10 MG/ML VIAL ONE (13:09)
--- NOTE | 2022-10-15 13:10 | Hospitalist Progress Note ---
Date of Service October 15, 2022 Assessment & Plan (1) Mass of left lung: (2) Influenza A: (3) Postobstructive pneumonia: Plan: 61 yo male with diabetes type 2, allergic rhinitis, hepatitis C-chronic Presenting with progressive shortness of breath worsening the past few days SHORTNESS OF BREATH SECONDARY TO LEFT LUNG MASS, POSTOBSTRUCTIVE PNEUMONIA INFLUENZA A INFECTION Follow-up blood culture, sputum culture, nasal MRSA swab Started cefepime plus doxycycline IV on admission - will continue Xopenex and Atrovent nebulizers every 6 hours Patient out of the window for Tamiflu, not recommended per pulmonology service Mucinex twice a day Incentive spirometer Flutter valve Pulmonology service consulted- pt now s/p bronchoscopy 10/15/22 pathology pending, but likely small cell ca Brain MRI with and without contrast - no metastases Oncology - Dr. Lee consulted IV fluids HISTORY OF DIABETES TYPE 2 Not taking medications A1c 6.1% History of chronic hepatitis C DVT prophylaxis- SCDs for now Disposition Anticipate discharge to home when medically stable Will need to reestablish with primary care physician-has not followed PCP for many years Reports he was seen in [facility] Admission and Anticipated Discharge Date Admission Date: October 14, 2022 Subjective Pt seen in follow up of shortness of breath, lung mass Bronchoscopy today w/ pulmonary medicine Currently patient is sitting up in bed, in no acute distress, about to have dinner No chest pain no palpitation He is currently on room air, denies increased shortness of breath Says at home when he was laying flat he was gurgling a lot, could not get a breath Discussed with Dr. Layton, likely small cell ca, pathology pending. Asked for oncology consultation, Dr. Lee notified. Patient tells me he currently does not have a PCP. About 8 years ago he saw [facility] PCP at [facility]. Will arrange follow-up in [facility] prior to [place]. Review of Systems Review of Systems: All systems reviewed & are unremarkable except as noted in Subjective Physical Exam Physical Exam: General- oriented x 3, not in distress, speaks in sentences with no effort or accessory muscle use Head- atraumatic Eyes- PERRL, EOMI, anicteric ENT- oropharynx clear Neck- supple, no JVD Lungs-clear breath sounds on the right Left- + rhonchi Heart- normal rate, regular rhythm; no murmur Abdomen- normal bowel sounds, nondistended, soft, nontender Extremities- no pretibial edema, moves extremities Neuro- alert, oriented x 3; answering questions appropriately. Speech fluent, no facial asymmetry, moves extremities Skin- warm & dry Results & Data Results & Data ([facility]) Vital Signs (Past 12 Hours) Vital Signs Temp Pulse Pulse Resp BP BP Pulse Ox 10/15/22 12:13 36.5 C 90 22 138/91 97 10/15/22 11:38 87 18 139/90 95 10/15/22 08:05 95 H 18 143/89 H 96 10/15/22 06:00 91 H 21 97 10/15/22 05:30 94 H 26 H 97 10/15/22 05:00 86 22 96 10/15/22 04:54 124/79 10/15/22 04:54 84 24 94 10/15/22 04:30 94 H 24 95 10/15/22 04:00 91 H 27 H 95 10/15/22 03:30 89 28 H 97 10/15/22 03:00 87 32 H 10/15/22 06:03 85 18 97 10/15/22 02:32 98 H 20 95 10/15/22 02:00 91 H 22 95 10/15/22 01:30 89 28 H 96 10/15/22 01:14 10/15/22 01:14 Pulse Ox O2 Del Method O2 Del Method 10/15/22 12:13 Room Air 10/15/22 11:38 Room Air 10/15/22 08:05 Room Air 10/15/22 06:00 10/15/22 05:30 10/15/22 05:00 10/15/22 04:54 10/15/22 04:54 10/15/22 04:30 10/15/22 04:00 10/15/22 03:30 10/15/22 03:00 10/15/22 06:03 Room Air 10/15/22 02:32 10/15/22 02:00 10/15/22 01:30 10/15/22 01:14 Room Air 10/15/22 01:14 95 Room Air Laboratory Results 10/15/22 10/15/22 10/15/22 Range/Units 12:16 06:44 06:44 WBC (4.8-10.8) K/ul RBC (4.63-6.08) M/uL Hgb (14.0-18.0) g/dl Hct (40.1-51.0) % MCV (80.0-100.0) fL MCH (25.0-34.0) pg MCHC (32.0-36.0) g/dL RDW Std Deviation (36.4-46.3) fL RDW Coeff of Mathieu (11.5-14.5) % Plt Count (130-400) K/uL MPV (9.4-12.4) fL Immature Gran % (Auto) % Neut % (Auto) % Lymph % (Auto) % [place] % (Auto) % Eos % (Auto) % Baso % (Auto) % Neut # (Auto) (1.4-6.5) K/uL Lymph # (Auto) (1.2-3.4) K/uL [place] # (Auto) (0.24-0.82) K/uL Eos # (Auto) (0-0.50) K/uL Baso # (Auto) (0-0.2) K/uL Immature Gran # (Auto) (0.00-0.02) K/uL Echinocytes PT (9.0-12.0) Seconds INR (0.9-1.1) APTT (21.0-31.0) Seconds PTT Ratio Sodium 133 L (136-145) mmol/L Potassium 3.9 (3.5-5.1) mmol/L Chloride 102 (98-107) mmol/L Carbon Dioxide 22 (21-32) mmol/L Anion Gap 9 (3-11) BUN 11 (6-23) mg/dl Creatinine 0.64 (0.6-1.4) mg/dl Est Cr Clr Drug Dosing 104.0 ml/min Est GFR ( Amer) 122.5 ml/min Est GFR (Non-Af Amer) 105.7 ml/min BUN/Creatinine Ratio 17.2 (10-20) Glucose 97 (70-99(Fasting)) mg/dl POC Glucose 107 H (70-99) mg/dl Estimat Average Glucose 128 mg/dl Hemoglobin A1c 6.1 H (4.5-5.6) % Calcium 7.8 L (8.5-10.1) mg/dl Magnesium (1.7-2.4) mg/dl Total Bilirubin (0.2-1.0) mg/dl AST (13-39) U/L ALT (7-52) U/L Alkaline Phosphatase (34-104) U/L Troponin I High Sens (0-20) pg/ml Total Protein (6.0-8.3) gm/dl Albumin (3.4-5.0) gm/dl Globulin (2.5-4.0) gm/dl Albumin/Globulin Ratio (0.9-2) Procalcitonin (0-0.5) ng/ml Nasal Screen MRSA (PCR) (Negative) SARS-CoV-2 (PCR) (Negative) Influenza Type A (PCR) (Neg) Influenza Type B (PCR) (Neg) RSV (RT-PCR) (Neg) 10/15/22 10/15/22 10/14/22 Range/Units 06:44 01:50 13:44 WBC 6.54 (4.8-10.8) K/ul RBC 4.17 L (4.63-6.08) M/uL Hgb 11.9 L (14.0-18.0) g/dl Hct 35.4 L (40.1-51.0) % MCV 84.9 (80.0-100.0) fL MCH 28.5 (25.0-34.0) pg MCHC 33.6 (32.0-36.0) g/dL RDW Std Deviation 40.5 (36.4-46.3) fL RDW Coeff of Mathieu 13.1 (11.5-14.5) % Plt Count 146 (130-400) K/uL MPV 10.2 (9.4-12.4) fL Immature Gran % (Auto) 0.6 % Neut % (Auto) 71.3 % Lymph % (Auto) 17.4 % [place] % (Auto) 10.1 % Eos % (Auto) 0.3 % Baso % (Auto) 0.3 % Neut # (Auto) 4.66 (1.4-6.5) K/uL Lymph # (Auto) 1.14 L (1.2-3.4) K/uL [place] # (Auto) 0.66 (0.24-0.82) K/uL Eos # (Auto) 0.02 (0-0.50) K/uL Baso # (Auto) 0.02 (0-0.2) K/uL Immature Gran # (Auto) 0.04 H (0.00-0.02) K/uL Echinocytes 1+ PT (9.0-12.0) Seconds INR (0.9-1.1) APTT (21.0-31.0) Seconds PTT Ratio Sodium (136-145) mmol/L Potassium (3.5-5.1) mmol/L Chloride (98-107) mmol/L Carbon Dioxide (21-32) mmol/L Anion Gap (3-11) BUN (6-23) mg/dl Creatinine (0.6-1.4) mg/dl Est Cr Clr Drug Dosing ml/min Est GFR ( Amer) ml/min Est GFR (Non-Af Amer) ml/min BUN/Creatinine Ratio (10-20) Glucose (70-99(Fasting)) mg/dl POC Glucose (70-99) mg/dl Estimat Average Glucose mg/dl Hemoglobin A1c (4.5-5.6) % Calcium (8.5-10.1) mg/dl Magnesium (1.7-2.4) mg/dl Total Bilirubin (0.2-1.0) mg/dl AST (13-39) U/L ALT (7-52) U/L Alkaline Phosphatase (34-104) U/L Troponin I High Sens (0-20) pg/ml Total Protein (6.0-8.3) gm/dl Albumin (3.4-5.0) gm/dl Globulin (2.5-4.0) gm/dl Albumin/Globulin Ratio (0.9-2) Procalcitonin 0.05 (0-0.5) ng/ml Nasal Screen MRSA (PCR) Negative (Negative) SARS-CoV-2 (PCR) (Negative) Influenza Type A (PCR) (Neg) Influenza Type B (PCR) (Neg) RSV (RT-PCR) (Neg) 10/14/22 10/14/22 10/14/22 Range/Units 13:44 13:44 13:44 WBC (4.8-10.8) K/ul RBC (4.63-6.08) M/uL Hgb (14.0-18.0) g/dl Hct (40.1-51.0) % MCV (80.0-100.0) fL MCH (25.0-34.0) pg MCHC (32.0-36.0) g/dL RDW Std Deviation (36.4-46.3) fL RDW Coeff of Mathieu (11.5-14.5) % Plt Count (130-400) K/uL MPV (9.4-12.4) fL Immature Gran % (Auto) % Neut % (Auto) % Lymph % (Auto) % [place] % (Auto) % Eos % (Auto) % Baso % (Auto) % Neut # (Auto) (1.4-6.5) K/uL Lymph # (Auto) (1.2-3.4) K/uL [place] # (Auto) (0.24-0.82) K/uL Eos # (Auto) (0-0.50) K/uL Baso # (Auto) (0-0.2) K/uL Immature Gran # (Auto) (0.00-0.02) K/uL Echinocytes PT 10.3 (9.0-12.0) Seconds INR 1.0 (0.9-1.1) APTT 33.6 H (21.0-31.0) Seconds PTT Ratio 1.2 Sodium 133 L (136-145) mmol/L Potassium 4.1 (3.5-5.1) mmol/L Chloride 99 (98-107) mmol/L Carbon Dioxide 26 (21-32) mmol/L Anion Gap 8 (3-11) BUN 13 (6-23) mg/dl Creatinine 0.76 (0.6-1.4) mg/dl Est Cr Clr Drug Dosing 89.5 ml/min Est GFR ( Amer) 114.1 ml/min Est GFR (Non-Af Amer) 98.5 ml/min BUN/Creatinine Ratio 17.1 (10-20) Glucose 113 H (70-99(Fasting)) mg/dl POC Glucose (70-99) mg/dl Estimat Average Glucose mg/dl Hemoglobin A1c (4.5-5.6) % Calcium 9.2 (8.5-10.1) mg/dl Magnesium 2.0 (1.7-2.4) mg/dl Total Bilirubin 0.4 (0.2-1.0) mg/dl AST 15 (13-39) U/L ALT 9 (7-52) U/L Alkaline Phosphatase 86 (34-104) U/L Troponin I High Sens 3.6 (0-20) pg/ml Total Protein 7.7 (6.0-8.3) gm/dl Albumin 4.0 (3.4-5.0) gm/dl Globulin 3.7 (2.5-4.0) gm/dl Albumin/Globulin Ratio 1.1 (0.9-2) Procalcitonin (0-0.5) ng/ml Nasal Screen MRSA (PCR) (Negative) SARS-CoV-2 (PCR) NEGATIVE (Negative) Influenza Type A (PCR) Positive A* (Neg) Influenza Type B (PCR) Negative (Neg) RSV (RT-PCR) Negative (Neg) 10/14/22 Range/Units 13:44 WBC 6.88 (4.8-10.8) K/ul RBC 4.69 (4.63-6.08) M/uL Hgb 13.6 L (14.0-18.0) g/dl Hct 40.6 (40.1-51.0) % MCV 86.6 (80.0-100.0) fL MCH 29.0 (25.0-34.0) pg MCHC 33.5 (32.0-36.0) g/dL RDW Std Deviation 41.0 (36.4-46.3) fL RDW Coeff of Mathieu 13.2 (11.5-14.5) % Plt Count 193 (130-400) K/uL MPV 9.8 (9.4-12.4) fL Immature Gran % (Auto) 0.3 % Neut % (Auto) 74.6 % Lymph % (Auto) 15.3 % [place] % (Auto) 9.4 % Eos % (Auto) 0.1 % Baso % (Auto) 0.3 % Neut # (Auto) 5.13 (1.4-6.5) K/uL Lymph # (Auto) 1.05 L (1.2-3.4) K/uL [place] # (Auto) 0.65 (0.24-0.82) K/uL Eos # (Auto) 0.01 (0-0.50) K/uL Baso # (Auto) 0.02 (0-0.2) K/uL Immature Gran # (Auto) 0.02 (0.00-0.02) K/uL Echinocytes PT (9.0-12.0) Seconds INR (0.9-1.1) APTT (21.0-31.0) Seconds PTT Ratio Sodium (136-145) mmol/L Potassium (3.5-5.1) mmol/L Chloride (98-107) mmol/L Carbon Dioxide (21-32) mmol/L Anion Gap (3-11) BUN (6-23) mg/dl Creatinine (0.6-1.4) mg/dl Est Cr Clr Drug Dosing ml/min Est GFR ( Amer) ml/min Est GFR (Non-Af Amer) ml/min BUN/Creatinine Ratio (10-20) Glucose (70-99(Fasting)) mg/dl POC Glucose (70-99) mg/dl Estimat Average Glucose mg/dl Hemoglobin A1c (4.5-5.6) % Calcium (8.5-10.1) mg/dl Magnesium (1.7-2.4) mg/dl Total Bilirubin (0.2-1.0) mg/dl AST (13-39) U/L ALT (7-52) U/L Alkaline Phosphatase (34-104) U/L Troponin I High Sens (0-20) pg/ml Total Protein (6.0-8.3) gm/dl Albumin (3.4-5.0) gm/dl Globulin (2.5-4.0) gm/dl Albumin/Globulin Ratio (0.9-2) Procalcitonin (0-0.5) ng/ml Nasal Screen MRSA (PCR) (Negative) SARS-CoV-2 (PCR) (Negative) Influenza Type A (PCR) (Neg) Influenza Type B (PCR) (Neg) RSV (RT-PCR) (Neg) Medications Administered Current Inpatient Medications Atropine Sulfate (Atropine Sulfate 0.1 Mg/Ml 10ml Syr) 0.5 mg IV Q1M PRN PRN Reason: PACU Use-HR<40 &/or Bradycardi Stop: 10/15/22 20:20 Ephedrine Sulfate (Ephedrine Sulfate 50 Mg/Ml Amp) 5 mg IV Q5M PRN PRN Reason: PACU Use Only-SBP<90 mmHg Stop: 10/15/22 20:20 Fentanyl Citrate (Fentanyl Citrate 100 Mcg/2 Ml Vial) 25 mcg IV Q5M PRN PRN Reason: PACU Use Only-Pain Stop: 10/15/22 20:20 Guaifenesin (Guaifenesin 600 Mg Tabcr) 600 mg PO Q12 VARUN Stop: 11/13/22 20:59 Last Admin: 10/15/22 08:22 Dose: 600 mg Hydromorphone HCl (Hydromorphone Inj 1 Mg/Ml Syringe) 0.25 mg IV Q5M PRN PRN Reason: PACU Use Only-Pain Stop: 10/15/22 20:20 Cefepime HCl 2,000 mg/ Syringe 20 mls @ 5 mls/min IV Q8H [facility]; Protocol Stop: 10/21/22 20:59 Last Admin: 10/15/22 05:48 Dose: 5 mls/min Doxycycline Hyclate 100 mg/ (Dextrose) 110 mls @ 50 mls/hr IV Q12H [facility] Stop: 10/21/22 20:59 Last Infusion: 10/15/22 10:38 Dose: Infused Ipratropium [place] (Ipratropium [place] Neb Soln 0.02% 2.5 Ml Vial) 0.5 mg INH Q6R [facility] Stop: 11/13/22 20:19 Last Admin: 10/15/22 12:51 Dose: Not Given Labetalol HCl (Labetalol Hcl Iv 5 Mg/Ml 20ml) 5 mg IV Q5M PRN PRN Reason: PACU Use-SBP>160 or DBP>100 Stop: 10/15/22 20:20 Levalbuterol HCl (Levalbuterol 1.25mg/0.5ml Neb) 1.25 mg INH Q6R VAR[facility] Stop: 11/13/22 20:19 Last Admin: 10/15/22 12:51 Dose: Not Given Meperidine HCl (Meperidine Hcl 25 Mg/Ml Carp/Vial) 12.5 mg IV Q5M PRN PRN Reason: Surgi Pain/Chills/Rigors Stop: 10/15/22 20:20 Ondansetron HCl (Ondansetron Inj 2 Mg/Ml 2 Ml Vial) 4 mg IV ONCE PRN PRN Reason: PACU Use Only-Nausea/Vomiting Stop: 10/15/22 20:20 Phenylephrine HCl (Phenylephrine 100mcg/Ml 5ml Syr) 100 mcg IV Q5M PRN PRN Reason: PACU Use Only-SBP<90 or HR>70 Stop: 10/15/22 20:20 Sodium Chloride (Sodium Chlor 7% 4 Ml Neb) 4 ml NEB BIDR [facility] Stop: 11/13/22 20:19 Last Admin: 10/15/22 06:15 Dose: 4 ml
[2022-10-15] MEDS ORDERED: ePHEDrine sulfate 50 MG/ML SYR ONE (13:18)
--- NOTE | 2022-10-15 14:31 | Anesthesiology Progress Note ---
Date of Service October 15, 2022 Anesthesia Post Procedure Vital Signs Vital Signs: Temp Pulse Pulse Pulse Resp BP BP 10/15/22 14:24 10/15/22 14:16 36.1 C L 95 H 16 103/59 L 10/15/22 12:13 36.5 C 90 22 10/15/22 11:38 87 18 10/15/22 08:05 95 H 18 10/15/22 06:00 91 H 21 10/15/22 05:30 94 H 26 H 10/15/22 05:00 86 22 10/15/22 04:54 124/79 10/15/22 04:54 84 24 10/15/22 04:30 94 H 24 10/15/22 04:00 91 H 27 H 10/15/22 03:30 89 28 H 10/15/22 03:00 87 32 H 10/15/22 06:03 85 18 10/15/22 02:32 98 H 20 10/15/22 02:00 91 H 22 10/15/22 01:30 89 28 H 10/15/22 01:05 10/15/22 00:30 94 H 19 10/15/22 00:00 94 H 28 H 10/14/22 23:30 99 H 20 10/14/22 23:00 95 H 19 10/14/22 22:30 91 H 19 10/14/22 22:00 101 H 26 H 10/14/22 21:41 10/14/22 20:30 92 H 26 H 10/14/22 20:00 90 25 H 10/14/22 19:30 91 H 24 10/14/22 19:00 88 26 H 10/14/22 19:00 137/87 10/14/22 18:30 90 25 H 10/15/22 01:14 10/15/22 01:14 10/15/22 00:44 87 16 10/14/22 23:55 91 H 18 10/14/22 21:41 97 H 16 10/14/22 18:00 85 19 145/88 H 10/14/22 17:30 92 H 22 10/14/22 17:26 89 22 140/103 H 10/14/22 16:59 18 10/14/22 16:59 BP Pulse Ox Pulse Ox O2 Del Method O2 Del Method O2 Flow Rate 10/15/22 14:24 Mechanical Vent 10/15/22 14:16 99 Oxymask 10 10/15/22 12:13 138/91 97 Room Air 10/15/22 11:38 139/90 95 Room Air 10/15/22 08:05 143/89 H 96 Room Air 10/15/22 06:00 97 10/15/22 05:30 97 10/15/22 05:00 96 10/15/22 04:54 10/15/22 04:54 94 10/15/22 04:30 95 10/15/22 04:00 95 10/15/22 03:30 97 10/15/22 03:00 10/15/22 06:03 97 Room Air 10/15/22 02:32 95 10/15/22 02:00 95 10/15/22 01:30 96 10/15/22 01:05 96 10/15/22 00:30 96 10/15/22 00:00 95 10/14/22 23:30 94 10/14/22 23:00 92 10/14/22 22:30 97 10/14/22 22:00 10/14/22 21:41 97 10/14/22 20:30 96 10/14/22 20:00 97 10/14/22 19:30 97 10/14/22 19:00 96 10/14/22 19:00 10/14/22 18:30 96 10/15/22 01:14 Room Air 10/15/22 01:14 95 Room Air 10/15/22 00:44 97 Room Air 10/14/22 23:55 137/87 95 Room Air 10/14/22 21:41 97 Room Air 10/14/22 18:00 98 10/14/22 17:30 97 10/14/22 17:26 97 10/14/22 16:59 10/14/22 16:59 Room Air Pain Intensity Medial Chest: Pain Intensity: 2 Transfer of Care Handoff Completed per policy Notes Mental Status: alert / awake / arousable Patient Amnestic to Procedure: Yes Nausea / Vomiting: adequately controlled Pain: adequately controlled Airway Patency, RR, SpO2: stable & adequate BP & HR: stable & adequate Hydration State: stable & adequate Anesthetic Complications: no major complications apparent and Pt Satisfied with anesthetic care Notes: The patient is awake and comfortable.
--- NOTE | 2022-10-15 14:39 | XRay Report ---
XR chest 1V portable CLINICAL HISTORY: Post Bronchoscopy TECHNIQUE: Single frontal radiograph of the chest was obtained. Comparison: Comparison is made to chest radiograph 10/14/2019 and CTA chest 12/12/2022 FINDINGS: No lines and tubes are seen. Calcified aortic knob is seen. There is leftward mediastinal shift, stab le from prior exam Interval worsening of previously noted airspace opacities in the left perihilar an d lower lungs. No evidence of pleural effusion or pneumothorax. IMPRESSION: Interval worsening of left-sided airspace disease likely represents aspiration/pneumonia. This patien t has a known left hilar mass which was recently biopsied and there is likely an element of postobstr uctive atelectasis as well. ACT 112: Negative or not required by law. Electronically signed by: Pj Harris M.D. 10/15/2022 2:38 PM
--- NOTE | 2022-10-15 15:28 | Procedure Note ---
Procedure Note Date of Service October 15, 2022 Note PREOPERATIVE DIAGNOSIS: Left hilar mass POSTOPERATIVE DIAGNOSIS: Left hilar mass obstructing the left main, small cell lung cancer PROCEDURE PERFORMED: EBUS with flexible fiberoptic bronchoscopy with bronchoalveolar lavage and endobronchial biopsy COMPLICATIONS: None. INDICATION: Rule out malignancy PROCEDURE: After obtaining an informed consent, the patient was brought to the OR. Sedation was maintained by anesthesiologist. Please refer to their note Bronchoscope was advanced through LMA There was normal vocal cord motion without masses or lesions. Additional topical anesthesia with 1% lidocaine was applied to the trachea and dalila. The trachea appeared normal.The bronchoscope was then advanced through the dalila, which was sharp. The scope was then advanced into the right main stem and each segment, subsegement in the right upper lobe, right middle lobe and right lower lobe were visualized. There were minimal amount of clear secretions which were suctioned out. There were no other findings including evidence of mass, anatomic distortions, or hemorrhage. The bronchoscope was subsequently withdrawn and advanced into the left mainstem. Smooth, shiny endobronchial lesion was appreciated as soon as I went into the left main. It was obstructing left upper as well as left lower lobe entrance. I was not able to go past through the lesion. The lesion was very friable The bronchoscope was then wedged in the left main and bronchoalveolar lavage samples were obtained. 60 ml of saline was instilled and 30 ml of fluid was aspirated back.The bronchoscope was withdrawn and the area was suctioned clear. Bronchoscope was withdrawn and EBUS was introduced Station 10 R: 6 passes were made with multiple sweeps. 3 of them were found to be adequate Station 7: 4 passes were made with multiple sweeps, all of them adequate Station 4R: 4 passes were made with multiple sweeps, all of them adequate. Small cell carcinoma was preliminary diagnosis EBUS was withdrawn and flexible bronchoscope was re-introduced Blood clot was appreciated at the site of the endobronchial lesion. This was going around the dalila. It was removed through suction The bronchoscope was then re-advanced into the left main 3 endobronchial biopsies were taken. Minimal hemorrhage was identified and suctioned clear without difficulty. Cold saline was utilized to achive adequate hemostasis. The bronchoscope was then withdrawn to the mainstem. The area was suctioned clear. The bronchoscope was then withdrawn. The patient tolerated the procedure well without evidence of desaturation or complications. Bronchoalveolar lavage samples were sent for cell count, Gram stain and bacterial culture, AFB culture and smear, fungal culture and smear and cytology. Endobronchial biopsies were sent for tissue pathology. EBL approximately 5 cc Recommendations: Follow-up cytology and pathology Avoid Lovenox or heparin for the next 24 hours Recommend oncology consult Please note the above document was generated using voice recognition software. It may contain grammatical, syntax or spelling errors.Any formal questions or concerns about the content, text or information contained within the body of this dictation should be directly addressed to the provider for clarification. Coding CPT Codes Pulmonary/Thoracic - Pulmonary and Thoracic: 00711 Bronchoscopy, w/EBUS, 3+ mediastinal ([id number]) Pulmonary/Thoracic - Pulmonary and Thoracic: 43113 Dx bronchoscopy/wash ([id number]) Pulmonary/Thoracic - Pulmonary and Thoracic: 08195 Bronchoscopy w bronchial or endobronchial bx ([id number]) [facility] Procedure Codes (Charges) Pulmonary/Thoracic Procedure 1: Pulmonary and Thoracic: 31228 Bronchoscopy, w/EBUS, 3+ mediastinal Procedure 2: Pulmonary and Thoracic: 97187 Dx bronchoscopy/wash Procedure 3: Pulmonary and Thoracic: 31270 Bronchoscopy w bronchial or endobronchial bx
[2022-10-15 17:32] LABS: Fluid Mono/Macrophage 9 %; Lymphocyte Body Fluid Man 5 %; Neutrophil Body Fluid Man 86 %
[2022-10-15] MEDS: BUDESONIDE 0.25 MG/2 ML VIAL (PULMICORT) NEB SCH (17:52)
[2022-10-15] MEDS: ARFORMOTEROL TART 15MCG/2ML VIAL INH SCH (17:56)
--- NOTE | 2022-10-15 23:25 | Consultation ---
Date of Consultation October 15, 2022 Assessment & Plan (1) Hepatitis C: We will need to reassess activity and review with GI as we anticipate starting systemic chemotherapy for presumed lung malignancy (2) Mass of left lung: Imaging thus far would still be consistent with a stage III lung malignancy assuming that the moderately increased mediastinal lymph nodes are probably metastatic given the large size of the primary lesion. Initial configuration is suggestive of small cell lung cancer but we do not yet have pathological confirmation of that. Will need a PET scan in time to more comprehensively stage his chest/abdomen/pelvis If this is small cell lung cancer we may want to quickly move towards cytoreductive chemotherapy. If this is non-small cell lung cancer without clear distant disease he would not be a good surgical candidate and would have to consider whether primary chemoradiation would be his best approach for limited stage disease versus targeted/immuno/chemotherapy options if this is clear stage IV disease. While this has the more significant context for an appearance of a primary lung cancer, will need to make sure that histology is consistent with that with the unlikely but not completely eliminate the possibility of lymphoma or some other nonmotor malignancy. Plan Await pathological confirmation. Spoke frankly with the patient that there is concerns about more advanced disease and that we may be able to offer treatment that can be effective for some patients but may or may not be able to achieve and sustain a complete remission. He seems to be taking that well and does not seem to be immediately threatened History of Present Illness Reason for Consultation: Likely primary lung malignancy, suspect small cell lung cancer Attending Physician: Ismael Bray MD History of Present Illness No previous cancer diagnosis but long-term tobacco user 1 to 1.5 pack/day for approximately 40 years though he was able to quit 6 years ago. 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 As noted cough with hemoptysis in March and April though the hemoptysis clear thereafter, ongoing exercise intolerance with dyspnea, 20 pound weight loss. Did have some frontal headache as well though without other neurological changes and some occasional nonbloody diarrhea. Work-up shows a large left perihilar lung mass, bronchoscopy was performed today with strong suggestion of possible small cell lung cancer. Allergies Allergy/AdvReac Type Severity Reaction Status Date / Time No Known Allergies Allergy Unverified 10/14/22 16:21 Home Medications Medication Instructions Recorded Confirmed Type ibuprofen 200 mg tablet 400 mg PO Q6H PRN Pain 10/14/22 10/14/22 History Patient History Medical History (Updated 10/15/22 @ 07:40 by Carlin Pearce MD) Diabetes Hepatitis C Rhinitis Social History Smoking Status: Former smoker Hx Alcohol Use: Yes Hx Substance Use: No Preferred Language: Arabic Communication Ability: Effective Rn Burn Required: No Beliefs That Will Affect Care: Evangelical Current Living Situation: Significant Other Feels Safe at Home: Yes Assistive Devices: None Physical Exam Physical Exam: VSS Patient is alert and appropriate sitting up in bed in no acute distress No pathological adenopathy in cervical or supraclavicular or axillary regions He is not tachypneic or using accessory muscles of respiration. Some decreased breath sounds on the left side but no stridor rubs or rales Cardiac rhythm is regular without pathological murmur The abdomen seems soft nontender without mass Extremities do show some 2+ clubbing but without signs of DVT Results & Data ([facility]) Vital Signs (Past 12 Hours) Vital Signs Temp Pulse Pulse Pulse Resp BP BP 10/15/22 23:13 10/15/22 22:08 36.6 C 90 18 112/69 10/15/22 19:36 18 118/75 10/15/22 17:53 95 H 18 10/15/22 17:05 89 19 110/72 10/15/22 17:42 88 10/15/22 16:30 36.3 C L 86 19 117/77 10/15/22 16:00 36.5 C 86 20 103/64 10/15/22 17:34 10/15/22 15:15 88 24 105/65 10/15/22 14:55 91 H 24 100/62 10/15/22 14:45 94 H 24 107/71 10/15/22 14:35 36.8 C 98 H 27 H 106/65 10/15/22 14:24 10/15/22 14:25 94 H 22 111/69 10/15/22 14:16 36.1 C L 95 H 16 103/59 L 10/15/22 12:13 36.5 C 90 22 138/91 10/15/22 11:38 87 18 139/90 Pulse Ox O2 Del Method O2 Flow Rate 10/15/22 23:13 Room Air 10/15/22 22:08 96 Room Air 10/15/22 19:36 Room Air 10/15/22 17:53 95 Room Air 10/15/22 17:05 99 Room Air 10/15/22 17:42 10/15/22 16:30 99 Nasal Cannula 1 10/15/22 16:00 99 Nasal Cannula 2 10/15/22 17:34 Room Air 10/15/22 15:15 95 Nasal Cannula 2 10/15/22 14:55 95 Nasal Cannula 2 10/15/22 14:45 95 Nasal Cannula 2 10/15/22 14:35 99 Nasal Cannula 2 10/15/22 14:24 Mechanical Vent 10/15/22 14:25 99 Oxymask 6 10/15/22 14:16 99 Oxymask 10 10/15/22 12:13 97 Room Air 10/15/22 11:38 95 Room Air Laboratory Results Laboratory Results - last 24 hr 10/15/22 10/15/22 10/15/22 01:50 06:44 06:44 WBC 6.54 RBC 4.17 L Hgb 11.9 L Hct 35.4 L MCV 84.9 MCH 28.5 MCHC 33.6 RDW Std Deviation 40.5 RDW Coeff of Mathieu 13.1 Plt Count 146 MPV 10.2 Immature Gran % (Auto) 0.6 Neut % (Auto) 71.3 Lymph % (Auto) 17.4 Thurston % (Auto) 10.1 Eos % (Auto) 0.3 Baso % (Auto) 0.3 Neut # (Auto) 4.66 Lymph # (Auto) 1.14 L Thurston # (Auto) 0.66 Eos # (Auto) 0.02 Baso # (Auto) 0.02 Immature Gran # (Auto) 0.04 H Echinocytes 1+ Sodium 133 L Potassium 3.9 Chloride 102 Carbon Dioxide 22 Anion Gap 9 BUN 11 Creatinine 0.64 Est Cr Clr Drug Dosing 104.0 Est GFR ( Amer) 122.5 Est GFR (Non-Af Amer) 105.7 BUN/Creatinine Ratio 17.2 Glucose 97 POC Glucose Estimat Average Glucose Hemoglobin A1c Calcium 7.8 L Fluid Neutrophils % Fluid Lymphocytes % Fl Monocyt/Macrophag % Fluid Comment Nasal Screen MRSA (PCR) Negative Resp Virus Cult Rapid Viral Specimen Source 10/15/22 10/15/22 10/15/22 06:44 12:16 13:55 WBC RBC Hgb Hct MCV MCH MCHC RDW Std Deviation RDW Coeff of Mathieu Plt Count MPV Immature Gran % (Auto) Neut % (Auto) Lymph % (Auto) Thurston % (Auto) Eos % (Auto) Baso % (Auto) Neut # (Auto) Lymph # (Auto) Thurston # (Auto) Eos # (Auto) Baso # (Auto) Immature Gran # (Auto) Echinocytes Sodium Potassium Chloride Carbon Dioxide Anion Gap BUN Creatinine Est Cr Clr Drug Dosing Est GFR ( Amer) Est GFR (Non-Af Amer) BUN/Creatinine Ratio Glucose POC Glucose 107 H Estimat Average Glucose 128 Hemoglobin A1c 6.1 H Calcium Fluid Neutrophils % Fluid Lymphocytes % Fl Monocyt/Macrophag % Fluid Comment Nasal Screen MRSA (PCR) Resp Virus Cult Rapid Pending Viral Specimen Source Pending 10/15/22 10/15/22 13:55 14:18 WBC RBC Hgb Hct MCV MCH MCHC RDW Std Deviation RDW Coeff of Mathieu Plt Count MPV Immature Gran % (Auto) Neut % (Auto) Lymph % (Auto) Thurston % (Auto) Eos % (Auto) Baso % (Auto) Neut # (Auto) Lymph # (Auto) Thurston # (Auto) Eos # (Auto) Baso # (Auto) Immature Gran # (Auto) Echinocytes Sodium Potassium Chloride Carbon Dioxide Anion Gap BUN Creatinine Est Cr Clr Drug Dosing Est GFR ( Amer) Est GFR (Non-Af Amer) BUN/Creatinine Ratio Glucose POC Glucose 129 H Estimat Average Glucose Hemoglobin A1c Calcium Fluid Neutrophils % 86 Fluid Lymphocytes % 5 Fl Monocyt/Macrophag % 9 Fluid Comment Nasal Screen MRSA (PCR) Resp Virus Cult Rapid Viral Specimen Source Diagnostic Findings Chest X-Ray 10/14/22 12:48 XR chest 2V PA/lateral CLINICAL HISTORY: Shortness of breath. COMPARISON STUDY: Thoracic spine CT April 28, 2020. FINDINGS: Moderate left lung volume loss is present. There is a small left pleural effusion. No pneumothorax. Right lung is clear. A 6.2 cm left perihilar mass-like opacity is present. There is moderate left lower lung airspace opacity. Cardiac size is normal. Leftward mediastinal shift and elevation of the left hemidiaphragm is due to left lung volume loss. Old, healed distal right clavicular fracture. IMPRESSION: 1. 6.2 cm left perihilar mass-like opacity with left lower lung airspace opacity and left lung volume loss. A chest CT with IV contrast is recommended to exclude a central obstructing mass. 2. Small left pleural effusion. ACT 112: Positive. There are findings on this exam that require communication between the performing entity and the patient following Patient Test Result Information Act ([place] Act 112) guidelines. Electronically signed by: Jace Call M.D. 10/14/2022 1:38 PM Chest CTA 10/14/22 15:53 CT SCAN OF THE CHEST WITH IV CONTRAST CLINICAL HISTORY: Abnormal chest x-ray. Left lung masslike opacity. Dyspnea. COMPARISON STUDY: Chest x-ray dated 10/14/2022. TECHNIQUE: Following the IV administration of 92 cc of Optiray 320, CT scan of the thorax was performed from the thoracic inlet to the upper abdomen. Images are reviewed in the axial, sagittal, and coronal planes. IV contrast was administered without complication. A dose lowering technique was utilized adhering to the principles of ALARA. CT DOSE: 277.44 mGy.cm FINDINGS: Thyroid: Imaged portions of the thyroid gland are normal in size and attenuation. Thoracic aorta: There is atherosclerotic calcification of the thoracic aorta, which is normal in caliber and demonstrates standard 3-vessel arch anatomy. No dissection is seen. Pulmonary vasculature: The pulmonary trunk is normal in caliber. There are no filling defects identified in the central pulmonary vessels to indicate pulmonary embolus. Note that this examination was not protocoled for evaluation of the pulmonary arteries. The distal left main pulmonary artery and the left lower lobe pulmonary artery are markedly attenuated by the left lower lobe mass lesion. The segmental and subsegmental vessels are suboptimally assessed due to motion artifact. Heart: The heart is normal in size and without pericardial effusion. There are scattered coronary artery calcifications. Lungs and pleural spaces: Moderate emphysematous changes noted. The trachea and right central airway are clear. There is near complete opacification of the left mainstem bronchus as well as the left upper, middle, and lower lobe airways. There is an ill-defined left perihilar mass lesion, which measures approximately 6 x 5 x 5.5 cm as seen on image #183. This invades the left hilum and encases the left-sided bronchi and pulmonary vessels. These are significantly narrowed or occluded. Opacities throughout the left lung likely represent postobstructive pneumonitis. This is greatest at the left lung base. There is a small left pleural effusion. There is volume loss in the left lung with compensatory hyperinflation of the right lung. Peribronchial thickening is seen throughout the right lung suggesting bronchitis/reactive airway disease. The right-sided pulmonary lesion is seen. Mediastinum: There are mildly enlarged adjacent lymph nodes. An AP window vesna aggregate on image #214 measures 1.9 x 1.7 cm. A subcarinal node measures 1.6 cm in short axis. Katelynn: The left hilum is largely obscured by the mass lesion. Mildly enlarged right hilar nodes measure up to 14 mm short axis. Axillae: There is no axillary lymphadenopathy. Upper abdomen: Partially visualized upper abdominal viscera is within normal limits. Skeletal structures: No lytic or blastic bony lesions are seen. Mild degenerative change is noted in the shoulders and thoracic spine. There is chronic posttraumatic deformity of the distal right clavicle. IMPRESSION: 1. There is no evidence of pulmonary embolus in the main, lobar, or segmental pulmonary arteries. Note that the segmental and subsegmental vessels are suboptimally assessed due to motion artifact. 2. Mild emphysema. 3. There is a large infiltrative left perihilar mass lesion which measures approximately 6 cm in length. This encases and occludes the bronchovascular structures of the left hilum. Lung cancer is the diagnosis of exclusion. 4. Airspace opacities are seen throughout the left lung, greatest at the left lung base. This likely represents postobstructive pneumonitis. Lymphangitic spread of tumor would be impossible to exclude. 5. There is volume loss in the left lung with compensatory hypertrophy of the right lung. 6. Mildly enlarged mediastinal and right hilar lymph nodes are indeterminate. No metastatic disease is not excluded. 7. Small left pleural effusion. 8. Additional findings as above. ACT 112: Negative or not required by law. Electronically signed by: Jono Blanco M.D. 10/14/2022 4:52 PM Brain MRI 10/14/22 18:14 MRI OF THE BRAIN COMBO CLINICAL HISTORY: Lung mass. Metastatic survey. COMPARISON STUDY: No priors. TECHNIQUE: MRI of the brain was performed utilizing various T1 and T2-weighted sequences in the axial, sagittal, and coronal planes. Contrast-enhanced sequences were acquired following the administration of 6 cc of Gadavist. FINDINGS: Brain parenchyma: There is minimal microangiopathic change. There is no hemorrhage or mass effect. There is no restricted diffusion to suggest acute isc hemia. No enhancing mass lesion is identified on the postcontrast images. Brumfield- white matter differentiation is preserved. No extra-axial fluid collection is seen. The cerebellar tonsils are normal in configuration. Ventricles, sulci, and cisterns: Normal in configuration. Pituitary and sella: Unremarkable. Intracranial vasculature: Normal flow voids are maintained at the skull base. Orbits: The bony orbits are grossly intact. Orbital contents are normal in appearance. Sinuses and mastoids: There is moderate mucosal thickening with an air-fluid level in the right maxillary antrum. Mild mucosal thickening seen within the ethmoid sinuses. The remaining paranasal sinuses are clear. There is a right mastoid effusion. Calvarium: Unremarkable. Cervical cord: Partially visualized cervical spinal cord is normal in morphology and signal intensity. IMPRESSION: No acute intracranial abnormality is identified. Specifically, there is no evidence of intracranial metastatic disease as clinically queried. ACT 112: Negative or not required by law. Electronically signed by: Jono Blanco M.D. 10/15/2022 8:14 AM Orbit X-Ray 10/14/22 19:34 ORBIT RADIOGRAPHS 3 VIEWS HISTORY: pre-MRI screening. COMPARISON: None. FINDINGS: There are no unexpected radiopaque foreign bodies identified within the orbits. Surgical material from internal fixation of the right orbital floor is noted. This is not contraindication to MRI. IMPRESSION: No unexpected radiopaque foreign bodies identified within the orbits. ACT 112: Negative or not required by law. Electronically signed by: Jace Call M.D. 10/14/2022 8:01 PM Chest X-Ray 10/15/22 14:08 XR chest 1V portable CLINICAL HISTORY: Post Bronchoscopy TECHNIQUE: Single frontal radiograph of the chest was obtained. Comparison: Comparison is made to chest radiograph 10/14/2019 and CTA chest 12/12/2022 FINDINGS: No lines and tubes are seen. Calcified aortic knob is seen. There is leftward mediastinal shift, stable from prior exam Interval worsening of previously noted airspace opacities in the left perihilar and lower lungs. No evidence of pleural effusion or pneumothorax. IMPRESSION: Interval worsening of left-sided airspace disease likely represents aspiration/pneumonia. This patient has a known left hilar mass which was recently biopsied and there is likely an element of postobstructive atelectasis as well. ACT 112: Negative or not required by law. Electronically signed by: Pj Harris M.D. 10/15/2022 2:38 PM PG Care Time/CCT Total # of Minutes Spent Total Time Spent with Patient: Total time spent is greater than 50% in coordination of care (as documented) at patient's floor/unit and/or counseling patient: Coding Level of Care Code INP/OBS CONSULT LVL 3, 45 MIN History Expanded Problem Focused Exam Expanded Problem Focused Medical Decision Making High Complexity Diagnoses Hepatitis C B19.20 Mass of left lung R91.8
[2022-10-16] MEDS: LEVALBUTEROL 1.25MG/0.5ML NEB INH SCH ×2 (00:31→07:01)
[2022-10-16] MEDS: IPRATROPIUM BROMIDE NEB SOLN 0.02% 2.5 ML VIAL INH SCH ×2 (00:31→07:01)
[2022-10-16] MEDS: CEFEPIME 2,000 MG in SYRINGE 0 ML IV SCH ×3 (05:22→20:47)
[2022-10-16] MEDS: BUDESONIDE 0.25 MG/2 ML VIAL (PULMICORT) NEB SCH ×2 (07:01→19:31)
[2022-10-16 07:06] LABS: Hematocrit (blood only) 39.1 % (40.1-51.0); Hemoglobin 12.8 g/dl (14.0-18.0); Mean Corpuscular Hemoglobin 28.3 pg (25.0-34.0); Mean Corpuscular Hgb Conc 32.7 g/dL (32.0-36.0); Mean Corpuscular Volume 86.3 fL (80.0-100.0); Mean Platelet Volume 10.2 fL (9.4-12.4); Platelet Count 169 K/uL (130-400); RDW Coefficient of Variation 13.1 % (11.5-14.5); RDW Standard Deviation 40.9 fL (36.4-46.3); Red Blood Count 4.53 M/uL (4.63-6.08); White Blood Count 6.24 K/ul (4.8-10.8)
[2022-10-16] MEDS: ARFORMOTEROL TART 15MCG/2ML VIAL INH SCH (07:29)
[2022-10-16] MEDS ORDERED: IPRATROPIUM BROMIDE NEB SOLN 0.02% 2.5 ML VIAL INH PRN (07:30)
[2022-10-16] MEDS ORDERED: LEVALBUTEROL 1.25MG/0.5ML NEB INH PRN (07:30)
[2022-10-16 07:40] LABS: BUN Creatinine Ratio 11.8 (10-20); Calcium 8.6 mg/dl (8.5-10.1); Creatinine Clr Calc Pharmacy 97.6 ml/min; Est GFR (African American) 119.5 ml/min; Est GFR (Non-African American) 103.1 ml/min; Phosphorus 3.2 mg/dl (2.5-4.9); Potassium 4.5 mmol/L (3.5-5.1)
[2022-10-16] MEDS: DOXYCYCLINE HYCLATE 100 MG in DEXTROSE 5% 100 ML IV SCH ×2 (08:15→20:47)
[2022-10-16] MEDS: guaiFENesin 600 MG TABCR PO SCH ×2 (08:56→20:47)
[2022-10-16] MEDS ORDERED: FLUARIX QUADRIVALENT 0.5 ML SYR IM ONE (09:00)
--- NOTE | 2022-10-16 11:25 | Hospitalist Progress Note ---
Date of Service October 16, 2022 Assessment & Plan (1) Mass of left lung: (2) Influenza A: (3) Postobstructive pneumonia: Plan: 61 yo male with diabetes type 2, allergic rhinitis, hepatitis C-chronic Presenting with progressive shortness of breath worsening the past few days SHORTNESS OF BREATH SECONDARY TO LEFT LUNG MASS, POSTOBSTRUCTIVE PNEUMONIA INFLUENZA A INFECTION Follow-up blood culture, sputum culture, nasal MRSA swab Started cefepime plus doxycycline IV on admission - will continue Xopenex and Atrovent nebulizers every 6 hours Patient out of the window for Tamiflu, not recommended per pulmonology service Mucinex twice a day Incentive spirometer Flutter valve Pulmonology service consulted- pt now s/p bronchoscopy 10/15/22 pathology pending, but likely small cell ca Brain MRI with and without contrast - no metastases Oncology - Dr. Lee consulted -recommend PET/CT as outpatient Recommend to check with GI regarding hep C HISTORY OF DIABETES TYPE 2 Not taking medications A1c 6.1% History of chronic hepatitis C DVT prophylaxis- SCDs for now Disposition Anticipate discharge to home when medically stable Patient does not have insurance, plan to follow-up with [facility] IM, information in discharge packet Admission and Anticipated Discharge Date Admission Date: October 14, 2022 Subjective Pt seen in follow up of shortness of breath, lung mass Bronchoscopy yesterday w/ pulmonary medicine Currently patient is sitting up in bed, in no acute distress, having mild h emoptysis No chest pain no palpitation He is currently on room air, denies increased shortness of breath Pulmonary medicine following, oncology consulted as well. Discussed with pulm. medicine over the phone. Patient currently without insurance, will need to follow-up with [facility] IM. Discussed w/ CM. Review of Systems Review of Systems: All systems reviewed & are unremarkable except as noted in Subjective Physical Exam Physical Exam: General- oriented x 3, not in distress, speaks in sentences with no effort or accessory muscle use Head- atraumatic Eyes- PERRL, EOMI, anicteric ENT- oropharynx clear Neck- supple, no JVD Lungs-clear breath sounds on the right Left- decreased air entry, + rhonchi, basilar crackles Heart- normal rate, regular rhythm; no murmur Abdomen- normal bowel sounds, nondistended, soft, nontender Extremities- no pretibial edema, moves extremities Neuro- alert, oriented x 3; answering questions appropriately. Speech fluent, no facial asymmetry, moves extremities Skin- warm & dry Results & Data Results & Data ([facility]) Vital Signs (Past 12 Hours) Vital Signs Temp Pulse Pulse Resp BP Pulse Ox O2 Del Method 10/16/22 11:02 36.5 C 100 H 19 124/86 96 Room Air 10/16/22 09:00 Room Air 10/16/22 07:16 97 H 10/16/22 07:02 92 H 18 96 Room Air 10/16/22 06:17 36.7 C 89 18 134/84 97 Room Air 10/16/22 02:38 36.6 C 85 20 107/65 98 Room Air 10/16/22 00:31 80 16 94 Room Air Laboratory Results 10/16/22 10/16/22 10/15/22 Range/Units 06:25 06:25 14:18 WBC 6.24 (4.8-10.8) K/ul RBC 4.53 L (4.63-6.08) M/uL Hgb 12.8 L (14.0-18.0) g/dl Hct 39.1 L (40.1-51.0) % MCV 86.3 (80.0-100.0) fL MCH 28.3 (25.0-34.0) pg MCHC 32.7 (32.0-36.0) g/dL RDW Std Deviation 40.9 (36.4-46.3) fL RDW Coeff of Mathieu 13.1 (11.5-14.5) % Plt Count 169 (130-400) K/uL MPV 10.2 (9.4-12.4) fL Sodium 134 L (136-145) mmol/L Potassium 4.5 (3.5-5.1) mmol/L Chloride 102 (98-107) mmol/L Carbon Dioxide 26 (21-32) mmol/L Anion Gap 6 (3-11) BUN 8 (6-23) mg/dl Creatinine 0.68 (0.6-1.4) mg/dl Est Cr Clr Drug Dosing 97.6 ml/min Est GFR ( Amer) 119.5 ml/min Est GFR (Non-Af Amer) 103.1 ml/min BUN/Creatinine Ratio 11.8 (10-20) Glucose 104 H (70-99(Fasting)) mg/dl POC Glucose 129 H (70-99) mg/dl Calcium 8.6 (8.5-10.1) mg/dl Phosphorus 3.2 (2.5-4.9) mg/dl Magnesium 2.0 (1.7-2.4) mg/dl Fluid Neutrophils % % Fluid Lymphocytes % % Fl Monocyt/Macrophag % % Fluid Comment Resp Virus Cult Rapid Viral Specimen Source 10/15/22 10/15/22 10/15/22 Range/Units 13:55 13:55 12:16 WBC (4.8-10.8) K/ul RBC (4.63-6.08) M/uL Hgb (14.0-18.0) g/dl Hct (40.1-51.0) % MCV (80.0-100.0) fL MCH (25.0-34.0) pg MCHC (32.0-36.0) g/dL RDW Std Deviation (36.4-46.3) fL RDW Coeff of Mathieu (11.5-14.5) % Plt Count (130-400) K/uL MPV (9.4-12.4) fL Sodium (136-145) mmol/L Potassium (3.5-5.1) mmol/L Chloride (98-107) mmol/L Carbon Dioxide (21-32) mmol/L Anion Gap (3-11) BUN (6-23) mg/dl Creatinine (0.6-1.4) mg/dl Est Cr Clr Drug Dosing ml/min Est GFR ( Amer) ml/min Est GFR (Non-Af Amer) ml/min BUN/Creatinine Ratio (10-20) Glucose (70-99(Fasting)) mg/dl POC Glucose 107 H (70-99) mg/dl Calcium (8.5-10.1) mg/dl Phosphorus (2.5-4.9) mg/dl Magnesium (1.7-2.4) mg/dl Fluid Neutrophils % 86 % Fluid Lymphocytes % 5 % Fl Monocyt/Macrophag % 9 % Fluid Comment Resp Virus Cult Rapid Pending Viral Specimen Source Pending Medications Administered Current Inpatient Medications Budesonide (Budesonide 0.25 Mg/2 Ml Vial (Pulmicort)) 0.25 mg NEB BIDR [facility] Stop: 11/14/22 18:59 Last Admin: 10/16/22 07:01 Dose: 0.25 mg Formoterol Fumarate (Formoterol 20 Mcg/2 Ml Vial) 20 mcg INH BIDR [facility]; Protocol Stop: 11/15/22 18:59 Guaifenesin (Guaifenesin 600 Mg Tabcr) 600 mg PO Q12 [facility] Stop: 11/13/22 20:59 Last Admin: 10/16/22 08:56 Dose: 600 mg Cefepime HCl 2,000 mg/ Syringe 20 mls @ 5 mls/min IV Q8H [facility]; Protocol Stop: 10/21/22 20:59 Last Admin: 10/16/22 05:22 Dose: 5 mls/min Doxycycline Hyclate 100 mg/ (Dextrose) 110 mls @ 50 mls/hr IV Q12H [facility] Stop: 10/21/22 20:59 Last Infusion: 10/16/22 10:43 Dose: Infused Ipratropium Shubuta (Ipratropium Shubuta Neb Soln 0.02% 2.5 Ml Vial) 0.5 mg INH Q4H PRN PRN Reason: Shortness Of Breath Or Wheezing Stop: 11/13/22 20:19 Levalbuterol HCl (Levalbuterol 1.25mg/0.5ml Neb) 1.25 mg INH Q4R PRN PRN Reason: Shortness Of Breath Or Wheezing Stop: 11/13/22 20:19 Sodium Chloride (Sodium Chlor 7% 4 Ml Neb) 4 ml NEB BIDR [facility] Stop: 11/13/22 20:19 Last Admin: 10/15/22 06:15 Dose: 4 ml
--- NOTE | 2022-10-16 15:21 | XRay Report ---
SINGLE VIEW CHEST CLINICAL HISTORY: Follow-up consolidation. FINDINGS: An AP, portable, upright chest radiograph is compared to study dated 10/15/2022 and correlate d with chest CT dated 10/14/2022. The examination is degraded by portable technique , apical lordotic p ositioning, and patient rotation. The cardiomediastinal silhouette is obscured. There is atheroscler otic calcification of the thoracic aorta. Advanced emphysema and chronic interstitial thickening is s imilar to previous. The right lung appears clear. There is consolidation throughout the left lung wit h significant volume loss/atelectasis. A left pleural effusion is noted. No pneumothorax is seen. The skeletal structures are osteopenic. There is chronic posttraumatic deformity of the right clavicle. IMPRESSION: 1. Atelectasis/consolidation throughout the left lung is again noted. This is secondary to a known le ft hilar mass. The mass itself is not well-visualized x-ray. Consolidation in the left midlung appear s modestly increased from yesterday. 2. A left pleural effusion is again noted. 3. Advanced emphysema ACT 112: Negative or not required by law. Electronically signed by: Jono Blanco M.D. 10/16/2022 3:20 PM
--- NOTE | 2022-10-16 15:37 | Pulmonology Progress Note ---
Date of Service October 16, 2022 Assessment & Plan (1) Postobstructive pneumonia: (2) Mass of left lung: (3) Influenza A: (4) Shortness of breath: (5) Weight loss: (6) Ex-smoker: (7) Abnormal chest CT: Plan CT chest 10/14/2022 personally reviewed: Left hilar mass with obstruction of the left lower lobe, volume loss on the left side Postoperative consolidative process, small left-sided pleural effusion Significant mediastinal lymphadenopathy -- Left hilar mass with mediastinal lymphadenopathy 6 cm with postobstructive pneumonia Like represents primary malignancy Procalcitonin 0.05 COVID-19 PCR, RSV negative MRI of the brain 10/15/22 is negative for metastatic disease S/p EBUS 10/15/2022: 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 -- Influenza A positive Symptoms started 10/09/2022 Patient is past the benefit from oseltamivir --Ex-smoker Approximately 12-dtic-mivs smoking history Quit at the age of 55 Plan: Chest x-ray from today still shows volume loss on the left side, it looks worse compared to yesterday. I will start the patient on incentive spirometry. Hemoptysis will resolve with time. H&H is stable Oncology has been consulted, note reviewed Patient will need PET/CT to be done as an outpatient Please note the above document was generated using voice recognition software. It may contain grammatical, syntax or spelling errors.Any formal questions or concerns about the content, text or information contained within the body of this dictation should be directly addressed to the provider for clarification. Admission and Anticipated Discharge Date Admission Date: October 14, 2022 Subjective Patient seen and examined at bedside. No acute distress, no adverse event overnight does complain of mild hemoptysis. Denies any chest pain No nausea or vomiting Fair appetite No headache, no blurry vision Review of Systems Review of Systems: All systems reviewed & are unremarkable except as noted in Subjective Physical Exam Physical Exam: Constitutional: No acute distress HEENT: EOMI, PERRLA, no cervical lymphadenopathy Respiratory system: Decreased air entry on the left side, no wheeze, no rhonchi, positive crackles bilateral lower lobes, more on the left CVS: S1-S2 positive, no murmurs or gallops Abdomen: Soft, nontender, nondistended, positive bowel sounds x4 Extremities: +2 pulses bilaterally radialis/ dorsalis pedis, no cyanosis, no edema, no clubbing Neuro: Awake alert oriented x3 Psych: Normal mood and affect G/U: No Cosby Skin: no rashes, warm and dry Lymphatic: no cervical or axillary lymphadenopathy Results & Data Results & Data ([facility]) Vital Signs (Past 12 Hours) Vital Signs Temp Pulse Pulse Resp BP Pulse Ox O2 Del Method 10/16/22 15:03 98 H 10/16/22 15:03 37.3 C 97 H 18 153/97 H 97 Room Air 10/16/22 11:02 36.5 C 100 H 19 124/86 96 Room Air 10/16/22 09:00 Room Air 10/16/22 07:16 97 H 10/16/22 07:02 92 H 18 96 Room Air 10/16/22 06:17 36.7 C 89 18 134/84 97 Room Air Laboratory Results 10/16/22 06:25 10/16/22 06:25 PG Care Time/CCT Total # of Minutes Spent Total Time Spent with Patient: Total time spent is greater than 50% in coordination of care (as documented) at patient's floor/unit and/or counseling patient: Coding Level of Care Code 16160 SUB INP/OBS CARE 3/50MIN Diagnoses Postobstructive pneumonia J18.9 Mass of left lung R91.8 Influenza A J10.1 Shortness of breath R06.02 Weight loss R63.4 Ex-smoker Z87.[address] R93.89
[2022-10-16] MEDS: FORMOTEROL 20 MCG/2 ML VIAL INH SCH (19:31)
[2022-10-16] MEDS: SODIUM CHLOR 7% 4 ML NEB NEB SCH (19:45)
[2022-10-17] MEDS: CEFEPIME 2,000 MG in SYRINGE 0 ML IV SCH ×2 (05:32→12:13)
[2022-10-17 06:25] LABS: Hemoglobin 12.6 g/dl (14.0-18.0); Mean Corpuscular Hemoglobin 28.4 pg (25.0-34.0); Mean Corpuscular Hgb Conc 34.1 g/dL (32.0-36.0); Mean Corpuscular Volume 83.3 fL (80.0-100.0); Mean Platelet Volume 10.2 fL (9.4-12.4); Platelet Count 224 K/uL (130-400); RDW Coefficient of Variation 12.7 % (11.5-14.5); RDW Standard Deviation 38.5 fL (36.4-46.3); Red Blood Count 4.44 M/uL (4.63-6.08); White Blood Count 8.31 K/ul (4.8-10.8)
[2022-10-17 06:51] LABS: Calcium 8.5 mg/dl (8.5-10.1); Creatinine Clr Calc Pharmacy 114.5 ml/min; Est GFR (African American) 127.5 ml/min; Magnesium 1.9 mg/dl (1.7-2.4); Phosphorus 2.7 mg/dl (2.5-4.9); Potassium 3.9 mmol/L (3.5-5.1)
[2022-10-17] MEDS: BUDESONIDE 0.25 MG/2 ML VIAL (PULMICORT) NEB SCH (07:10)
[2022-10-17] MEDS: FORMOTEROL 20 MCG/2 ML VIAL INH SCH (07:11)
[2022-10-17] MEDS: SODIUM CHLOR 7% 4 ML NEB NEB SCH (07:23)
[2022-10-17] MEDS: DOXYCYCLINE HYCLATE 100 MG in DEXTROSE 5% 100 ML IV SCH (08:42)
--- NOTE | 2022-10-17 08:57 | Pulmonology Progress Note ---
Date of Service October 17, 2022 Assessment & Plan (1) Postobstructive pneumonia: (2) Mass of left lung: (3) Influenza A: (4) Shortness of breath: (5) Weight loss: (6) Ex-smoker: (7) Abnormal chest CT: Plan CT chest 10/14/2022 personally reviewed: Left hilar mass with obstruction of the left lower lobe, volume loss on the left side Postoperative consolidative process, small left-sided pleural effusion Significant mediastinal lymphadenopathy -- Left hilar mass with mediastinal lymphadenopathy 6 cm with postobstructive pneumonia Like represents primary malignancy Procalcitonin 0.05 COVID-19 PCR, RSV negative MRI of the brain 10/15/22 is negative for metastatic disease S/p EBUS 10/15/2022: 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 -- Influenza A positive Symptoms started 10/09/2022 Patient is past the benefit from oseltamivir --Ex-smoker Approximately 40-rchu-oivc smoking history Quit at the age of 55 Plan: Chest x-ray from today showed improvement compared to yesterday. He still has opacity which will gradually improve on the left side Unfortunately patient has no insurance and would like to get antibiotics and inhalers/nebulizers which are least expensive. Would recommend to give antibiotics for total of 10-14 days Okay to discharge the patient on DuoNebs 3 times daily and as needed albuterol. Will be for her to follow-up with pulmonary as an outpatient. I made it very clear to the patient that he needs to follow-up with her oncolog ist so that they can start the patient on treatment as soon as possible Patient will need PET/CT to be done as an outpatient Await confirmatory pathology Case was discussed with Dr. Bray Please note the above document was generated using voice recognition software. It may contain grammatical, syntax or spelling errors.Any formal questions or concerns about the content, text or information contained within the body of this dictation should be directly addressed to the provider for clarification. Admission and Anticipated Discharge Date Admission Date: October 14, 2022 Subjective Patient seen and examined at bedside. No acute distress, no dressings ov ernight. He was saturating 97% on room air with heart rate of 100 at the time of examination He said overall he is feeling better. No more hemoptysis. No nausea vomiting No headache, no blurry vision Review of Systems Review of Systems: All systems reviewed & are unremarkable except as noted in Subjective Physical Exam Physical Exam: Constitutional: No acute distress HEENT: EOMI, PERRLA, no cervical lymphadenopathy Respiratory system: Decreased air entry on the left side, no wheeze, no rhonchi, positive crackles bilateral lower lobes, more on the left CVS: S1-S2 positive, no murmurs or gallops Abdomen: Soft, nontender, nondistended, positive bowel sounds x4 Extremities: +2 pulses bilaterally radialis/ dorsalis pedis, no cyanosis, no edema, no clubbing Neuro: Awake alert oriented x3 Psych: Normal mood and affect G/U: No Cosby Skin: no rashes, warm and dry Lymphatic: no cervical or axillary lymphadenopathy Results & Data Results & Data ([facility]) Vital Signs (Past 12 Hours) Vital Signs Temp Pulse Pulse Pulse Resp BP Pulse Ox 10/17/22 07:43 36.5 C 98 H 20 136/90 97 10/17/22 07:12 100 H 16 98 10/17/22 06:58 87 10/17/22 03:07 36.9 C 90 16 142/90 H 96 10/16/22 22:15 96 H 10/16/22 22:21 36.5 C 95 H 18 151/95 H 96 10/16/22 22:03 O2 Del Method 10/17/22 07:43 Room Air 10/17/22 07:12 Room Air 10/17/22 06:58 10/17/22 03:07 Room Air 10/16/22 22:15 10/16/22 22:21 Room Air 10/16/22 22:03 Room Air Laboratory Results 10/17/22 05:39 10/17/22 05:39 PG Care Time/CCT Total # of Minutes Spent Total Time Spent with Patient: Total time spent is greater than 50% in coordination of care (as documented) at patient's floor/unit and/or counseling patient: Coding Level of Care Code 62051 SUB INP/OBS CARE 2/35MIN Diagnoses Postobstructive pneumonia J18.9 Mass of left lung R91.8 Influenza A J10.1 Shortness of breath R06.02 Weight loss R63.4 Ex-smoker Z87.[address] R93.89
--- NOTE | 2022-10-17 09:14 | XRay Report ---
XR chest 1V portable CLINICAL HISTORY: f/u COMPARISON STUDY: Chest CT October 14, 2022. Chest radiograph October 16, 2022. FINDINGS: There is no pneumothorax. Small left pleural effusion. The left hilar mass shown on prior C T is obscured on this exam. Left lung volume loss is noted with airspace opacity. Left lung aeration has improved since prior chest radiograph. IMPRESSION: 1. Interval improvement in left lung aeration. Persistent left lung airspace opacity with volume loss . 2. Left hilar mass better depicted on prior CT. 3. Small left pleural effusion. No pneumothorax. ACT 112: Negative or not required by law. Electronically signed by: Jace Call M.D. 10/17/2022 9:11 AM
[2022-10-17] MEDS: guaiFENesin 600 MG TABCR PO SCH (09:27)
[2022-10-17] MEDS ORDERED: ADVANCED PROBIOTIC 1250 MG CAPSULE PO ONE (12:00)
--- NOTE | 2022-10-17 12:11 | Hospitalist Progress Note ---
Date of Service October 17, 2022 Assessment & Plan (1) Mass of left lung: (2) Influenza A: (3) Postobstructive pneumonia: Plan: 61 yo male with diabetes type 2, allergic rhinitis, hepatitis C-chronic Presenting with progressive shortness of breath worsening the past few days SHORTNESS OF BREATH SECONDARY TO LEFT LUNG MASS, POSTOBSTRUCTIVE PNEUMONIA INFLUENZA A INFECTION Blood culture negative for 48 hours Started cefepime plus doxycycline IV on admission - will continue Xopenex and Atrovent nebulizers every 6 hours Patient out of the window for Tamiflu, not recommended per pulmonology service Mucinex twice a day Incentive spirometer Flutter valve Pulmonology service consulted- pt now s/p bronchoscopy 10/15/22 pathology pending, but 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 Abx for total of 10 days Brain MRI with and without contrast - no metastases Oncology - Dr. Lee consulted -recommend PET/CT as outpatient Recommend to check with GI regarding hep C Discussed with GI (Argenis Penaloza), hep C IgG and quantitative ordered - will need to follow up on results as outpt HISTORY OF DIABETES TYPE 2 Not taking medications A1c 6.1% History of chronic hepatitis C DVT prophylaxis- SCDs for now Disposition - plan to discharge to home Patient does not have insurance, plan to follow-up with [facility] IM, information in discharge packet Admission and Anticipated Discharge Date Admission Date: October 14, 2022 Subjective Pt seen in follow up of shortness of breath, lung mass s/p Bronchoscopy w/ pulmonary medicine Currently patient is sitting up in bed, in no acute distress, hemoptysis resolved No chest pain, no palpitation, no shortness of breath He is currently on room air Pulmonary medicine following, oncology consulted as well. Discussed with pulm. medicine - ok to discharge home. Patient currently without insurance, will need to follow-up with [facility] IM. Discussed w/ CM and the pt. Review of Systems Review of Systems: All systems reviewed & are unremarkable except as noted in Subjective Physical Exam Physical Exam: General- oriented x 3, not in distress, speaks in sentences with no effort or accessory muscle use Head- atraumatic Eyes- PERRL, EOMI, anicteric ENT- oropharynx clear Neck- supple, no JVD Lungs-clear breath sounds on the right Left- + rhonchi Heart- normal rate, regular rhythm; no murmur Abdomen- normal bowel sounds, nondistended, soft, nontender Extremities- no pretibial edema, moves extremities Neuro- alert, oriented x 3; answering questions appropriately. Speech fluent, no facial asymmetry, moves extremities Skin- warm & dry Results & Data Results & Data ([facility]) Vital Signs (Past 12 Hours) Vital Signs Temp Pulse Pulse Pulse Resp BP Pulse Ox 10/17/22 08:30 10/17/22 07:43 36.5 C 98 H 20 136/90 97 10/17/22 07:12 100 H 16 98 10/17/22 06:58 87 10/17/22 03:07 36.9 C 90 16 142/90 H 96 O2 Del Method 10/17/22 08:30 Room Air 10/17/22 07:43 Room Air 10/17/22 07:12 Room Air 10/17/22 06:58 10/17/22 03:07 Room Air Laboratory Results 10/17/22 10/17/22 Range/Units 05:39 05:39 WBC 8.31 (4.8-10.8) K/ul RBC 4.44 L (4.63-6.08) M/uL Hgb 12.6 L (14.0-18.0) g/dl Hct 37.0 L (40.1-51.0) % MCV 83.3 (80.0-100.0) fL MCH 28.4 (25.0-34.0) pg MCHC 34.1 (32.0-36.0) g/dL RDW Std Deviation 38.5 (36.4-46.3) fL RDW Coeff of Mathieu 12.7 (11.5-14.5) % Plt Count 224 (130-400) K/uL MPV 10.2 (9.4-12.4) fL Sodium 132 L (136-145) mmol/L Potassium 3.9 (3.5-5.1) mmol/L Chloride 102 (98-107) mmol/L Carbon Dioxide 22 (21-32) mmol/L Anion Gap 8 (3-11) BUN 11 (6-23) mg/dl Creatinine 0.58 L (0.6-1.4) mg/dl Est Cr Clr Drug Dosing 114.5 ml/min Est GFR ( Amer) 127.5 ml/min Est GFR (Non-Af Amer) 110.0 ml/min BUN/Creatinine Ratio 19.0 (10-20) Glucose 102 H (70-99(Fasting)) mg/dl Calcium 8.5 (8.5-10.1) mg/dl Phosphorus 2.7 (2.5-4.9) mg/dl Magnesium 1.9 (1.7-2.4) mg/dl Medications Administered Current Inpatient Medications Budesonide (Budesonide 0.25 Mg/2 Ml Vial (Pulmicort)) 0.25 mg NEB BIDR [facility] Stop: 11/14/22 18:59 Last Admin: 10/17/22 07:10 Dose: 0.25 mg Formoterol Fumarate (Formoterol 20 Mcg/2 Ml Vial) 20 mcg INH BIDR [facility]; Protocol Stop: 11/15/22 18:59 Last Admin: 10/17/22 07:11 Dose: 20 mcg Guaifenesin (Guaifenesin 600 Mg Tabcr) 600 mg PO Q12 [facility] Stop: 11/13/22 20:59 Last Admin: 10/17/22 09:27 Dose: 600 mg Cefepime HCl 2,000 mg/ Syringe 20 mls @ 5 mls/min IV Q8H [facility]; Protocol Stop: 10/21/22 20:59 Last Admin: 10/17/22 05:32 Dose: 5 mls/min Doxycycline Hyclate 100 mg/ (Dextrose) 110 mls @ 50 mls/hr IV Q12H [facility] Stop: 10/21/22 20:59 Last Infusion: 10/17/22 10:55 Dose: Infused Ipratropium [place] (Ipratropium [place] Neb Soln 0.02% 2.5 Ml Vial) 0.5 mg INH Q4H PRN PRN Reason: Shortness Of Breath Or Wheezing Stop: 11/13/22 20:19 Levalbuterol HCl (Levalbuterol 1.25mg/0.5ml Neb) 1.25 mg INH Q4R PRN PRN Reason: Shortness Of Breath Or Wheezing Stop: 11/13/22 20:19 Sodium Chloride (Sodium Chlor 7% 4 Ml Neb) 4 ml NEB BIDR [facility] Stop: 11/13/22 20:19 Last Admin: 10/17/22 07:23 Dose: 4 ml
--- NOTE | 2022-10-17 12:38 | Discharge Summary ---
Date of Service October 17, 2022 Admission HPI Per Admitting Provider 61-year-old male with history of diabetes type 2, allergic rhinitis, hepatitis C-chronic Presenting with progressive shortness of breath worsening the past few days. Patient reports that since June, he he has been experiencing dyspnea with exertion, orthopnea and unintentional weight loss. With a past few days, patient has had worsening of the dyspnea associated with dry cough, fatigue, sinus congestion. Patient presented to the ER for further evaluation. At the ER, patient receiving amply stable, afebrile, with O2 sats more than 90%. CT scanning of the chest reveals large lung mass with possible postobstructive pneumonia. No pulmonary embolism identified. Patient referred to hospital service for admission. On exam, patient is seen resting in bed, comfortable, not in distress Admission Exam Per Admitting Provider General- oriented x 3, not in distress, speaks in sentences with no effort or accessory muscle use Head- atraumatic Eyes- PERRL, EOMI, anicteric ENT- oropharynx clear Neck- supple, no JVD, no adenopathy, no thyromegaly; carotids +2/2, no bruits appreciated Lungs-clear breath sounds on the right Left- Heart- normal rate, regular rhythm; no murmur, no gallop, no rub appreciated Abdomen- normal bowel sounds, nondistended, soft, nontender, no masses or hepatosplenomegaly Extremities- no pretibial edema, no calf tenderness; peripheral pulses intact Neuro- alert, oriented x 3; CN 2-12 grossly intact; motor 5/5 bilaterally;sensation 100% on all extremities; no other gross focal neurologic deficits Skin- warm & dry Principal Diagnosis Lung mass, concern for lung cancer Postobstructive pneumonia Influenza A Discharge Exam General- oriented x 3, not in distress, speaks in sentences with no effort or accessory muscle use Head- atraumatic Eyes- PERRL, EOMI, anicteric ENT- oropharynx clear Neck- supple, no JVD Lungs-clear breath sounds on the right Left- + rhonchi Heart- normal rate, regular rhythm; no murmur Abdomen- normal bowel sounds, nondistended, soft, nontender Extremities- no pretibial edema, moves extremities Neuro- alert, oriented x 3; answering questions appropriately. Speech fluent, no facial asymmetry, moves extremities Skin- warm & dry Discharge Data Allergies Allergy/AdvReac Type Severity Reaction Status Date / Time No Known Allergies Allergy Unverified 10/14/22 16:21 Consultations 10/14/22 17:55 ED Decision to Admit Stat 10/14/22 20:20 Consult Pulmonology Routine 10/15/22 16:31 Consult Oncology Routine Procedures Performed Operation Date: 10/15/22 09:40 Actual Procedures p Endobronchial Ultrasound (EBUS)(Not Applicable) - Bela Layton MD, [facility] Ordered Studies 10/14/22 15:53 CT angio chest PE protocol Stat FINDINGS: Thyroid: Imaged portions of the thyroid gland are normal in size and attenuation. Thoracic aorta: There is atherosclerotic calcification of the thoracic aorta, which is normal in caliber and demonstrates standard 3-vessel arch anatomy. No dissection is seen. Pulmonary vasculature: The pulmonary trunk is normal in caliber. There are no filling defects identified in the central pulmonary vessels to indicate pulmonary embolus. Note that this examination was not protocoled for evaluation of the pulmonary arteries. The distal left main pulmonary artery and the left lower lobe pulmonary artery are markedly attenuated by the left lower lobe mass lesion. The segmental and subsegmental vessels are suboptimally assessed due to motion artifact. Heart: The heart is normal in size and without pericardial effusion. There are scattered coronary artery calcifications. Lungs and pleural spaces: Moderate emphysematous changes noted. The trachea and right central airway are clear. There is near complete opacification of the left mainstem bronchus as well as the left upper, middle, and lower lobe airways. There is an ill-defined left perihilar mass lesion, which measures approximately 6 x 5 x 5.5 cm as seen on image #183. This invades the left hilum and encases the left-sided bronchi and pulmonary vessels. These are significantly narrowed or occluded. Opacities throughout the left lung likely represent postobstructive pneumonitis. This is greatest at the left lung base. There is a small left pleural effusion. There is volume loss in the left lung with compensatory hyperinflation of the right lung. Peribronchial thickening is seen throughout the right lung suggesting bronchitis/reactive airway disease. The right-sided pulmonary lesion is seen. Mediastinum: There are mildly enlarged adjacent lymph nodes. An AP window vesna aggregate on image #214 measures 1.9 x 1.7 cm. A subcarinal node measures 1.6 cm in short axis. Katelynn: The left hilum is largely obscured by the mass lesion. Mildly enlarged right hilar nodes measure up to 14 mm short axis. Axillae: There is no axillary lymphadenopathy. Upper abdomen: Partially visualized upper abdominal viscera is within normal limits. Skeletal structures: No lytic or blastic bony lesions are seen. Mild degenerative change is noted in the shoulders and thoracic spine. There is chronic posttraumatic deformity of the distal right clavicle. IMPRESSION: 1. There is no evidence of pulmonary embolus in the main, lobar, or segmental pulmonary arteries. Note that the segmental and subsegmental vessels are suboptimally assessed due to motion artifact. 2. Mild emphysema. 3. There is a large infiltrative left perihilar mass lesion which measures approximately 6 cm in length. This encases and occludes the bronchovascular structures of the left hilum. Lung cancer is the diagnosis of exclusion. 4. Airspace opacities are seen throughout the left lung, greatest at the left lung base. This likely represents postobstructive pneumonitis. Lymphangitic spread of tumor would be impossible to exclude. 5. There is volume loss in the left lung with compensatory hypertrophy of the right lung. 6. Mildly enlarged mediastinal and right hilar lymph nodes are indeterminate. No metastatic disease is not excluded. 7. Small left pleural effusion. 8. Additional findings as above. 10/14/22 18:14 MRI Brain [MR brain wo/w con] Stat FINDINGS: Brain parenchyma: There is minimal microangiopathic change. There is no hemorrhage or mass effect. There is no restricted diffusion to suggest acute ischemia. No enhancing mass lesion is identified on the postcontrast images. Brumfield-white matter differentiation is preserved. No extra-axial fluid collection is seen. The cerebellar tonsils are normal in configuration. Ventricles, sulci, and cisterns: Normal in configuration. Pituitary and sella: Unremarkable. Intracranial vasculature: Normal flow voids are maintained at the skull base. Orbits: The bony orbits are grossly intact. Orbital contents are normal in appearance. Sinuses and mastoids: There is moderate mucosal thickening with an air-fluid level in the right maxillary antrum. Mild mucosal thickening seen within the ethmoid sinuses. The remaining paranasal sinuses are clear. There is a right mastoid effusion. Calvarium: Unremarkable. Cervical cord: Partially visualized cervical spinal cord is normal in morphology and signal intensity. IMPRESSION: No acute intracranial abnormality is identified. Specifically, there is no evidence of intracranial metastatic disease as clinically queried. Hospital Course (1) Mass of left lung: (2) Influenza A: (3) Postobstructive pneumonia: 61 yo male with diabetes type 2, allergic rhinitis, hepatitis C-chronic Presenting with progressive shortness of breath worsening the past few days SHORTNESS OF BREATH SECONDARY TO LEFT LUNG MASS, POSTOBSTRUCTIVE PNEUMONIA INFLUENZA A INFECTION Blood culture negative for 48 hours Started cefepime plus doxycycline IV on admission - will continue Xopenex and Atrovent nebulizers every 6 hours Patient out of the window for Tamiflu, not recommended per pulmonology service Mucinex twice a day Incentive spirometer Flutter valve Pulmonology service consulted- pt now s/p bronchoscopy 10/15/22 pathology pending, but 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 Abx for total of 10 days Brain MRI with and without contrast - no metastases Oncology - Dr. Lee consulted -recommend PET/CT as outpatient Recommend to check with GI regarding hep C Discussed with GI (Argenis Penaloza), hep C IgG and quantitative ordered - will need to follow up on results as outpt HISTORY OF DIABETES TYPE 2 Not taking medications A1c 6.1% History of chronic hepatitis C as above Disposition - plan to discharge to home Patient does not have insurance, plan to follow-up with [facility], information in discharge packet Total Time Total Time Spent Total Time Spent (In Minutes): 40 Discharge Plan Discharge Items Patient Disposition: Home - Self-Care Reason For Visit: POST OBSTRUCTIVE PNEUMONIA Discharge Diagnosis: Lung mass, concern for lung cancer Postobstructive pneumonia Influenza A Activity: Per Instructions section Non-emergency contact: Primary Care Provider and Oncologist Call non-emergency contact if: you have any medication questions and your symptoms worsen Follow-up/Referrals: [facility] [Outside] (Please call to receive help with provider follow up and medications.) PCP,NO [Primary Care Provider] - Diet: Regular Addtl Attending Provider Instructions: Follow-up with physicians at [facility]. Phone number is provided for you. Take antibiotic, Augmentin for next 7 days, as prescribed. DuoNeb nebulizers were ordered for you, use as prescribed. Then discuss with physician at your follow-up appointment about proper medications. Also recommend taking guaifenesin and probiotics, these can be obtained [id number]. Addtl [facility] Provider Instructions: You need to call [facility] ([phone]). They will assist with getting you free medications and provider follow up. Pending Studies at Discharge: Yes Studies:: pathology from bronchoscopy Stand-Alone Forms: [facility], Smoking Cessation Medications and DC Order Prescriptions: New ipratropium-albuterol 0.5 mg-3 mg(2.5 mg base)/3 mL solution for nebulization 3 ml inhalation Q8H Qty: 90 0RF amoxicillin-pot clavulanate 875-125 mg tablet 1 tab PO BID 7 Days Qty: 14 0RF guaifenesin 600 mg tablet extended release 12hr 600 mg PO BID 7 Days Qty: 14 0RF Continued ibuprofen 200 mg Tablet 400 mg PO Q6H PRN (Reason: Pain) Discharge Orders: Discharge Order (Routine); Ordered 10/17/22 Ordered By: Ismael Mora/Other Patient Handouts: Managing Type 2 Diabetes Admission Data Admit Date/Time: 10/14/22 17:53 Attending Provider: Ismael Bray Admit Provider: Ezekiel Brown Primary Care Provider: PCP,NO Other Providers: Ezekiel Brown ; Bela Layton ; Mona Regan ; Cassius Lee
[2022-10-21 17:45] LABS: Hepatitis C Vira RNA (Log) PCR 5.74 Log IU/mL (NOT DETECTED); Hepatitis C Viral RNA by PCR 555000 IU/mL (NOT DETECTED)
[2022-10-23 17:57] LABS: Source BW LEFT MAIN STEM
== END 2022-10-17 15:44 | disposition home or self-care (01) | DRG 166 ==
LOC: ED 12:42 → EDINP 17:53 → SUATTDRO 17:53 → 2N 20:21

== ENCOUNTER 2022-12-16 10:54 | Inpatient (IN) ==
[2022-12-16] MEDS ORDERED: ALBUT/IPRATROP 3MG/0.5MG NEB 3 ML VIAL NEB STA (11:06)
[2022-12-16] MEDS ORDERED: ONDANSETRON INJ 2 MG/ML 2 ML VIAL IV STA (11:06)
--- NOTE | 2022-12-16 11:11 | Emergency Department Note ---
Impression & Plan Precordial chest pain, Hypotension, Elevated lactic acid level, Leukocytosis, Lung cancer ED Provider Note NAME: JESUS MAHARAJ AGE: 61 SEX: M : 1960 ARRIVES VIA: Ambulance INFORMANT: [Patient][ems] ED PROVIDER(S): [Jono Cruz MD] CHIEF COMPLAINT: Chest pain, possible chemo reaction HISTORY OF PRESENT ILLNESS: The patient is a 61-year-old male with some COPD. He was diagnosed with lung cancer very recently. The patient was at the [facility] center receiving his second chemotherapy. The patient began to feel hot and dizzy. He became nauseated and short of breath. By report, his blood pressure was in the 60s systolic and he was pale. He complained of some central chest pain. The pain was moderate in severity. The patient received IV Benadryl, IV Solu-Medrol, IV Pepcid, 4 baby aspirin and a small amount of IV saline. He was essentially treated for a reaction from the chemotherapy. With the above medications, the patient did have improvement in his blood pressure and felt better although, he still has some mild discomfort in the chest and some mild nausea. The patient states that he felt fairly decent this morning given his cancer history. He was not short of breath. He does not wear oxygen at home but does have a nebulizer machine. There has been no recent cough or congestion or fever. He denies any history of ND but does have a family history of this diagnosis. PMHx/PSHx: See Below SOCIAL HISTORY: See Below. PHYSICAL EXAM: GENERAL: Patient is in no acute distress. HEENT: No acute trauma, normocephalic atraumatic, mucous membranes moist, no nasal congestion. NECK: No stridor, no adenopathy, no meningismus, trachea is midline. LUNGS: Diminished breath sounds bilaterally, wheezes and rhonchi heard bilaterally, breath sounds do seem fairly equal. There was a mildly increased respiratory rate. HEART: Tachycardic, regular rhythm, no obvious murmur. Chest: Nontender chest wall. ABDOMEN: Soft, nontender, bowel sounds positive, no peritonitis. EXTREMITIES: No cyanosis or edema, full range of motion of all the joints without pain or difficulty, no signs for acute trauma. NEUROLOGIC: Oriented x 3, no acute motor or sensory deficits, no focal weakness. SKIN: No rash, no jaundice, no diaphoresis. DIFFERENTIAL DIAGNOSIS: Chemotherapy reaction, PE, ND, anemia, electrolyte imbalance, exacerbation of COPD, pneumonia, infection, aortic dissection, among others. EMERGENCY DEPARTMENT COURSE/PROCEDURES: Prior/Outside records reviewed: Cancer center sheet. EMS records. ECG per my interpretation: Indication was chest pain. The ECG shows a sinus tachycardia with a rate of 112. There is no ST elevation, no PVCs. The QTc is 436. Continuous Cardiac Monitoring per my interpretation: An order was placed for continuous cardiac monitoring. The monitor shows a rate of 113 with sinus tachycardia. Critical Care Note: I have personally spent 49 minutes of critical care time in the direct management of this patient. This includes bedside care, interpretation of diagnostic studies, and testing, discussion with consultants, patient, and family members, and other required patient management activities. This 49 minutes is in excess of all separately billable procedures. MEDICAL DECISION MAKING: There is a mild leukocytosis, this could be consistent with infection or the stress of his presentation. No concerning anemia. There was a normal platelet count. No coagulopathy. No renal failure. Glucose somewhat elevated at 242. No concerning liver enzyme elevation. No evidence for pancreatitis. Lactic acid level was mildly elevated, this could be consistent with infection or dehydration. COVID test returned negative. Chest film per my review shows the left lung cancer, although, the film appears improved compared to a recent chest x-ray. On exam, the patient seemed comfortable. He was hypotensive. Patient received a total of 2 L of IV saline, he was given IV Zofran for nausea, he was given a DuoNeb, he received IV cefepime as empiric antibiotic coverage. The patient does feel better than when he first arrived, his blood pressure is improving. He is currently comfortable. Given his presentation, given the lower blood pressure, the chest pain, his cancer diagnosis and the potential for chemotherapy reaction, I do think a hospital stay is warranted. I spoke with the patient and case management, the on-call hospitalist was consulted. DISPOSITION: The patient's presentation and findings warrant a hospital stay. Past Med/Surg History Medical History DM type 2 (diabetes mellitus, type 2) Ex-smoker Frequent urination Hepatitis C Active History of fractured vertebra Lung cancer Dx'd 10/14/2022 Osteoporosis Ruptured intervertebral disc hx Surgical History (Updated 11/25/22 @ 08:51 by Annalisa Moran RN) H/O eye surgery 1996 H/O knee surgery 1999 History of bronchoscopy History of tonsillectomy and adenoidectomy 1972 Port-A-Cath in place (11/25/22) Insertion Access Port with Fluoroscopy Right Internal Jugular Vein(Right) - Colin Hernandez DO Family History Brother Stomach cancer Grandfather (Maternal) Prostate cancer Grandfather (Paternal) Colon cancer Father Heart disease Grandfather Stroke Social History Smoking Status: Former smoker Tobacco Type: Cigarettes packs per day: 1.5; Second Hand Exposure: No; Hx Alcohol Use: Yes Alcohol type: beer Alcohol Intake Frequency: 4 or More x per/Week Hx Substance Use: No Preferred Language: Chinese Communication Ability: Effective Visual Impairment: No Limitations Hearing Ability: Normal 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 Beliefs That Will Affect Care: Spiritual Current Living Situation: Significant Other current occupational status: disabled Feels Safe at Home: Yes during the past year weight has: decreased > 10 lbs Assistive Devices: Glasses Allergies Allergies Allergy/AdvReac Type Severity Reaction Status Date / Time No Known Allergies Allergy Verified 12/16/22 11:20 Home Meds Home Medications Medication Instructions Recorded Confirmed ibuprofen 200 mg tablet 400 mg PO Q6H PRN Pain 10/14/22 12/16/22 albuterol sulfate 90 mcg/actuation 2 puff inhalation Q6H PRN sob 10/29/22 12/16/22 aerosol inhaler guaifenesin 600 mg tablet, 600 mg PO Q12H PRN Congestion 10/29/22 12/16/22 extended release 12 hr (Mucinex) ipratropium 0.5 mg-albuterol 3 mg 3 ml inhalation Q8H wheezing 10/29/22 12/16/22 (2.5 mg base)/3 mL nebulization soln Probiotic 1 dose PO QDL 11/19/22 12/16/22 tamsulosin 0.4 mg capsule 0.4 mg PO QAM 11/19/22 12/16/22 prochlorperazine maleate 10 mg 10 mg PO Q6H PRN Nausea 12/08/22 12/16/22 tablet (Compazine) oxycodone 5 mg capsule 5 - 10 mg PO .Q4-6H PRN Pain 12/15/22 12/16/22 dexamethasone 4 mg tablet 20 mg PO UD 12/16/22 12/16/22 levofloxacin 500 mg tablet 500 mg PO DAILY 12/16/22 12/16/22 prednisone 20 mg tablet 40 mg PO DAILY 12/16/22 12/16/22 Previous Rx's Medication Instructions Recorded Magic Mouthwash 300 mL mouthwash 10 ml mucous membrane ACHS PRN 12/03/22 dysphagia #300 mL Results & Data (ED) Vital Signs Vital Signs - 24 hr 12/16/22 11:02 12/16/22 11:11 12/16/22 12:00 Pulse Rate 113 H 112 H Pulse Rate [Right Finger] 93 H Pulse Rhythm Regular Pulse Rhythm [Right Finger] Regular Pulse Strength Normal Pulse Strength [Right Finger] Normal Respiratory Rate 18 18 Respiratory Effort / Characteristics Non-Labored Non-Labored Respiratory Depth Normal Normal Respiratory Pattern Regular Regular Blood Pressure 101/78 Blood Pressure [Right Arm] 97/70 L Blood Pressure Mean 85 Blood Pressure Mean [Right Arm] 79 Blood Pressure Position Lying Blood Pressure Position [Right Arm] Lying Pulse Oximetry 94 99 Oxygen Delivery Method Nasal Cannula Room Air Oxygen Flow Rate 2 Sepsis Recent Fever Within 48 Hours No Sepsis New/Unexplained Change in Mental Status No Sepsis Action Taken by Nursing No Action Required 12/16/22 12:00 12/16/22 12:51 Pulse Rate Pulse Rate [Right Finger] 94 H Pulse Rhythm Pulse Rhythm [Right Finger] Pulse Strength Pulse Strength [Right Finger] Respiratory Rate Respiratory Effort / Characteristics Respiratory Depth Respiratory Pattern Blood Pressure Blood Pressure [Right Arm] 86/66 L Blood Pressure Mean Blood Pressure Mean [Right Arm] 72 Blood Pressure Position Blood Pressure Position [Right Arm] Pulse Oximetry 99 99 Oxygen Delivery Method Room Air Room Air Oxygen Flow Rate Sepsis Recent Fever Within 48 Hours Sepsis New/Unexplained Change in Mental Status Sepsis Action Taken by Long Term Medications Current Medication List: was personally reviewed by me Laboratory Data Attestation: I reviewed the patient's lab results. 12/16/22 11:02 12/16/22 11:02 Lab Results 12/16/22 12/16/22 12/16/22 Range/Units 11:02 11:02 11:02 WBC 10.92 H (4.8-10.8) K/ul RBC 4.92 (4.70-6.10) M/uL Hgb 13.7 L D (14.0-18.0) g/dl Hct 42.6 (42.0-52.0) % MCV 86.6 (80.0-100.0) fL MCH 27.8 (25.0-34.0) pg MCHC 32.2 (32.0-36.0) g/dL RDW Std Deviation 42.6 (36.4-46.3) fL RDW Coeff of Mathieu 13.8 (11.5-14.5) % Plt Count 316 (130-400) K/uL MPV 9.5 (9.4-12.4) fL Immature Gran % (Auto) 1.7 % Neut % (Auto) 89.7 % Lymph % (Auto) 3.9 % Mingo % (Auto) 4.4 % Eos % (Auto) 0.0 % Baso % (Auto) 0.3 % Neut # (Auto) 9.79 H (1.40-6.50) K/uL Lymph # (Auto) 0.43 L (1.2-3.4) K/uL Mingo # (Auto) 0.48 (0.11-0.59) K/uL Eos # (Auto) 0.00 (0-0.50) K/uL Baso # (Auto) 0.03 (0-0.2) K/uL Immature Gran # (Auto) 0.19 (0.01-0.20) K/uL PT 11.2 (9.0-12.0) Seconds INR 1.1 (0.9-1.1) APTT 26.2 (21.0-31.0) Seconds PTT Ratio 1.0 Sodium 133 L (136-145) mmol/L Potassium 4.2 (3.5-5.1) mmol/L Chloride 101 (98-107) mmol/L Carbon Dioxide 22 (21-32) mmol/L Anion Gap 10 (3-11) BUN 21 (6-23) mg/dl Creatinine 0.72 (0.6-1.4) mg/dl Est Cr Clr Drug Dosing 93.3 ml/min Est GFR ( Amer) 116.7 ml/min Est GFR (Non-Af Amer) 100.7 ml/min BUN/Creatinine Ratio 29.2 H (10-20) Glucose 242 H (70-99(Fasting)) mg/dl Lactate (0.4-2.0) mmol/L Calcium 8.7 (8.5-10.1) mg/dl Magnesium 2.0 (1.7-2.4) mg/dl Total Bilirubin 0.3 (0.2-1.0) mg/dl AST 10 L (13-39) U/L ALT 14 (7-52) U/L Alkaline Phosphatase 72 (34-104) U/L Troponin I High Sens 9.7 (0-20) pg/ml Total Protein 6.3 (6.0-8.3) gm/dl Albumin 3.2 L (3.4-5.0) gm/dl Globulin 3.1 (2.5-4.0) gm/dl Albumin/Globulin Ratio 1.0 (0.9-2) Lipase 15 (11-82) U/L SARS-CoV-2, RNA, NAAT (NEGATIVE) 12/16/22 12/16/22 Range/Units 11:10 13:17 WBC (4.8-10.8) K/ul RBC (4.70-6.10) M/uL Hgb (14.0-18.0) g/dl Hct (42.0-52.0) % MCV (80.0-100.0) fL MCH (25.0-34.0) pg MCHC (32.0-36.0) g/dL RDW Std Deviation (36.4-46.3) fL RDW Coeff of Mathieu (11.5-14.5) % Plt Count (130-400) K/uL MPV (9.4-12.4) fL Immature Gran % (Auto) % Neut % (Auto) % Lymph % (Auto) % Mingo % (Auto) % Eos % (Auto) % Baso % (Auto) % Neut # (Auto) (1.40-6.50) K/uL Lymph # (Auto) (1.2-3.4) K/uL Mingo # (Auto) (0.11-0.59) K/uL Eos # (Auto) (0-0.50) K/uL Baso # (Auto) (0-0.2) K/uL Immature Gran # (Auto) (0.01-0.20) K/uL PT (9.0-12.0) Seconds INR (0.9-1.1) APTT (21.0-31.0) Seconds PTT Ratio Sodium (136-145) mmol/L Potassium (3.5-5.1) mmol/L Chloride (98-107) mmol/L Carbon Dioxide (21-32) mmol/L Anion Gap (3-11) BUN (6-23) mg/dl Creatinine (0.6-1.4) mg/dl Est Cr Clr Drug Dosing ml/min Est GFR ( Amer) ml/min Est GFR (Non-Af Amer) ml/min BUN/Creatinine Ratio (10-20) Glucose (70-99(Fasting)) mg/dl Lactate 2.1 H* (0.4-2.0) mmol/L Calcium (8.5-10.1) mg/dl Magnesium (1.7-2.4) mg/dl Total Bilirubin (0.2-1.0) mg/dl AST (13-39) U/L ALT (7-52) U/L Alkaline Phosphatase (34-104) U/L Troponin I High Sens (0-20) pg/ml Total Protein (6.0-8.3) gm/dl Albumin (3.4-5.0) gm/dl Globulin (2.5-4.0) gm/dl Albumin/Globulin Ratio (0.9-2) Lipase (11-82) U/L SARS-CoV-2, RNA, NAAT NEGATIVE (NEGATIVE) Administered Medications Sodium Chloride (Nss 1000ml) 1,000 mls @ 999 mls/hr IV .Q1H1M ONE Stop: 12/16/22 14:29 Last Admin: 12/16/22 13:33 Dose: 999 mls/hr Documented By: MES Discontinued Medications Albuterol (Albut/Ipratrop 3mg/0.5mg Neb 3 Ml Vial) 3 ml NEB NOW STA; Protocol Stop: 12/16/22 11:07 Last Admin: 12/16/22 11:40 Dose: 3 ml Documented By: VENKATO Sodium Chloride (Nss 1000ml) 500 mls @ 999 mls/hr IV .Q31M ONE Stop: 12/16/22 12:47 Last Infusion: 12/16/22 13:34 Dose: 0 mls/hr Documented By: Admin: 12/16/22 12:50 Dose: 999 mls/hr Documented By: SKYE Sodium Chloride (Nss 1000ml) 500 mls @ 999 mls/hr IV .Q31M ONE Stop: 12/16/22 13:32 Last Infusion: 12/16/22 13:55 Dose: 0 mls/hr Documented By: Admin: 12/16/22 13:16 Dose: 999 mls/hr Documented By: SKYE Cefepime HCl (Maxipime) 2,000 mg in 20 mls @ 5 mls/min IV NOW STA; Protocol Stop: 12/16/22 13:05 Last Admin: 12/16/22 13:20 Dose: 5 mls/min Documented By: SKYE Ondansetron HCl (Ondansetron Inj 2 Mg/Ml 2 Ml Vial) 4 mg IV NOW STA Stop: 12/16/22 11:07 Last Admin: 12/16/22 11:40 Dose: 4 mg Documented By: RIGO Imaging Data Radiologist's Impression: Chest X-Ray 12/16/22 10:57 SINGLE VIEW CHEST CLINICAL HISTORY: Atypical chest pain. FINDINGS: 2 AP, portable, upright chest radiographs are compared to study dated 11/25/2022 and correlated with chest CT dated 10/14/2022 as well as radiation treatment planning CT dated 12/08/2022. The examination is degraded by portable technique an apical lordotic positioning. A right internal jugular central venous infusion port is unchanged in position. The cardiomediastinal silhouette is unremarkable noting atherosclerotic calcification of the thoracic aorta. Advanced emphysema and chronic interstitial thickening is similar to previous. The right lung appears clear. Masslike consolidation in the left upper lobe is similar to previous. No large pleural effusion or pneumothorax is identified. The skeletal structures are osteopenic. There is chronic posttraumatic deformity of the right clavicle. IMPRESSION: 1. Advanced emphysema with masslike consolidation in the left upper lung. This is similar to the recent treatment planning CT and likely corresponds to patient's known mass lesion with possible postobstructive pneumonitis. Clinical correlation will be required. 2. The right lung is clear. No pleural effusion is identified. ACT 112: Negative or not required by law. Electronically signed by: Jono Blanco M.D. 12/16/2022 11:44 AM Discharge Plan Visit Data Chief Complaint: Chest Pain ED Provider: Jono Cruz Discharge Problem: Precordial chest pain, Hypotension, Elevated lactic acid level, Leukocytosis, Lung cancer Patient Disposition: Admitted As Inpatient Condition: Fair Forms Stand Alone Forms: [facility] [employer] Prescriptions Prescriptions: No Action prochlorperazine maleate [Compazine] 10 mg tablet 10 mg PO Q6H PRN (Reason: Nausea) oxycodone 5 mg capsule 5 - 10 mg PO .Q4-6H PRN (Reason: Pain) ipratropium-albuterol 0.5 mg-3 mg(2.5 mg base)/3 mL solution for nebulization 3 ml inhalation Q8H albuterol sulfate 90 mcg/actuation HFA aerosol inhaler 2 puff inhalation Q6H PRN (Reason: sob) guaifenesin [Mucinex] 600 mg tablet extended release 12hr 600 mg PO Q12H PRN (Reason: Congestion) Magic Mouthwash 300 mL mouthwash 10 ml mucous membrane ACHS PRN (Reason: dysphagia) Qty: 300 3RF ibuprofen 200 mg Tablet 400 mg PO Q6H PRN (Reason: Pain) tamsulosin 0.4 mg Capsule 0.4 mg PO QAM Probiotic 1 dose PO QDL prednisone 20 mg tablet 40 mg PO DAILY dexamethasone 4 mg tablet 20 mg PO UD levofloxacin 500 mg tablet 500 mg PO DAILY Referrals Referrals: Wood Genao MD [Primary Care Provider] -
--- NOTE | 2022-12-16 11:45 | XRay Report ---
SINGLE VIEW CHEST CLINICAL HISTORY: Atypical chest pain. FINDINGS: 2 AP, portable, upright chest radiographs are compared to study dated 11/25/2022 and correla annette with chest CT dated 10/14/2022 as well as radiation treatment planning CT dated 12/08/2022. The exam ination is degraded by portable technique an apical lordotic positioning. A right internal jugular ce ntral venous infusion port is unchanged in position. The cardiomediastinal silhouette is unremarkable noting atherosclerotic calcification of the thoracic aorta. Advanced emphysema and chronic interstit ial thickening is similar to previous. The right lung appears clear. Masslike consolidation in the le ft upper lobe is similar to previous. No large pleural effusion or pneumothorax is identified. The sk eletal structures are osteopenic. There is chronic posttraumatic deformity of the right clavicle. IMPRESSION: 1. Advanced emphysema with masslike consolidation in the left upper lung. This is similar to the rece treatment planning CT and likely corresponds to patient's known mass lesion with possible postobst ructive pneumonitis. Clinical correlation will be required. 2. The right lung is clear. No pleural effusion is identified. ACT 112: Negative or not required by law. Electronically signed by: Jono Blanco M.D. 12/16/2022 11:44 AM
[2022-12-16 12:00] LABS: Albumin Level 3.2 gm/dl (3.4-5.0); BUN Creatinine Ratio 29.2 (10-20); Bilirubin,Total 0.3 mg/dl (0.2-1.0); Calcium 8.7 mg/dl (8.5-10.1); Creatinine Clr Calc Pharmacy 93.3 ml/min; Est GFR (African American) 116.7 ml/min; Est GFR (Non-African American) 100.7 ml/min; Globulin 3.1 gm/dl (2.5-4.0); Potassium 4.2 mmol/L (3.5-5.1); Total Protein 6.3 gm/dl (6.0-8.3)
[2022-12-16 12:05] LABS: Troponin I High Sensitivity 9.7 pg/ml (0-20)
[2022-12-16] MEDS ORDERED: SODIUM CHLORIDE 0.9% 1000ML 500 ML IV ONE ×2 (12:17→13:02)
--- NOTE | 2022-12-16 12:53 | Electrocardiogram Report ---
Test Reason : Blood Pressure : / mmHG Vent. Rate : 112 BPM Atrial Rate : 112 BPM P-R Int : 114 ms QRS Dur : 082 ms QT Int : 320 ms P-R-T Axes : 080 078 066 degrees QTc Int : 436 ms Poor data quality, interpretation may be adversely affected Sinus tachycardia Otherwise normal ECG When compared with ECG of 14-OCT-2022 13:36, Premature atrial complexes are no longer Present Confirmed by Messi Og ([id number]) on 12/16/2022 12:53:43 PM Referred By: Confirmed By:Messi Og
[2022-12-16 13:00] LABS: INR 1.1 (0.9-1.1); Partial Thromboplastin Time 26.2 Seconds (21.0-31.0); Prothrombin Time 11.2 Seconds (9.0-12.0)
[2022-12-16] MEDS ORDERED: CEFEPIME 2,000 MG/20 ML VIAL IV STA (13:02)
[2022-12-16] MEDS ORDERED: SODIUM CHLORIDE 0.9% 1000ML 1,000 ML IV ONE (13:29)
[2022-12-16 13:41] LABS: Basophils # (auto) 0.03 K/uL (0-0.2); Basophils % (auto) 0.3 %; Hematocrit (blood only) 42.6 % (42.0-52.0); Hemoglobin 13.7 g/dl (14.0-18.0); Immature Granulocytes # (auto) 0.19 K/uL (0.01-0.20); Immature Granulocytes % (auto) 1.7 %; Lymphocytes # (auto) 0.43 K/uL (1.2-3.4); Lymphocytes % (auto) 3.9 %; Mean Corpuscular Hemoglobin 27.8 pg (25.0-34.0); Mean Corpuscular Hgb Conc 32.2 g/dL (32.0-36.0); Mean Corpuscular Volume 86.6 fL (80.0-100.0); Mean Platelet Volume 9.5 fL (9.4-12.4); Monocytes # (auto) 0.48 K/uL (0.11-0.59); Monocytes % (auto) 4.4 %; Neutrophils # (auto) 9.79 K/uL (1.40-6.50); Neutrophils % (auto) 89.7 %; Platelet Count 316 K/uL (130-400); RDW Coefficient of Variation 13.8 % (11.5-14.5); RDW Standard Deviation 42.6 fL (36.4-46.3); Red Blood Count 4.92 M/uL (4.70-6.10); White Blood Count 10.92 K/ul (4.8-10.8)
--- NOTE | 2022-12-16 14:10 | History & Physical Report ---
Date of Service December 16, 2022 Assessment & Plan (1) Chest pain: Plan: - Admit to tele -Concerned that this was an allergic reaction to the chemotherapy which was being administered ?? -Received total of Solu-Medrol 250 mg IV, famotidine, Benadryl, baby aspirin -BPs remain soft but now 97/66 at bedside, Mediport in place so if need arises for vasopressor will start, getting second liter of NSS currently in the ER -Trend troponin, initial is negative - Will check 2 D echo, none previously -EKG reviewed showing sinus tachycardia, no ST wave changes or signs of ischemia (2) Non-small cell lung cancer: Plan: NSCLC stage IIIC (N3, M0) diagnosed 10/15/22 - Mediport placed R upper chest wall on 11/25/22 - Known cervical spine lesion which is under review , diagnostic radiology does not feel this lesion is of immediate concern so they're monitoring it - Rectal and colon lesions noted on CT - will need colonoscopy in the future to assess - CXR showing KIRK with advanced emphysema, mass consolidation due to cancer, possible postobstructive pneumonitis. RUL is clear. - Continue boost supplementation twice daily - pt reports has gained 5 lbs - Continue oxycodone 1-2 tabs prn 4-6 hr for cancer related rib/chest pain - Check LDH, uric acid, phos, mag with am labs - Pt is scheduled for xrt therapy tomorrow morning at 0730, consult rad/onc to maintain appointment - Holding home steroids with high doses of solumedrol given (3) Leukocytosis: Plan: - Noted at 10.92 o admission, other counts are stable (4) Lactic acidosis: Plan: - Was started on IV cefepime in the ER for concern for an underlying infection with lactic acid of 2.1, WBC 10.92 - Follow blood cx x 2, urine cx - BP maintained at this time, will continue gentle fluids, await echo results (5) Hyponatremia: Plan: - Na 133 on admission, trend with am labs - Continue with NSS - Consider urine studies however BUN/Cr - Glucose elevated at 316, A1C was 6.1 on check 10/15/22. Allow regular diet for now DVT ppx: - scds, Lovenox CODE: Full code Dispo: From home, likely to remain in the hospital x 1-2 days History of Present Illness Chief Complaint: Chest pain Primary Care Provider: Wood Genao MD This is a 61-year-old male with PMHx of recent diagnosis of non-small cell lung carcinoma, diagnosed 10/15/2022, CT4 CN3, CMx IIIC/MARILY, with cervical spine lesion, rectal colon lesions, currently receiving weekly Taxol/carboplatinum. The patient was at the cancer center earlier today receiving his second round of chemotherapy when he acutely developed dizziness, felt hot, nausea and developed chest pain mid sternally. This began a few moments after initiation of his chemotherapy infusion through mediport. Pt notes taking scheduled prednisone last night in anticipation of his treatment as scheduled. Patient reports due to his previous left-sided rib fracture he has been using oxycodone 10 mg every 6 hours for pain. He has been tolerating p.o. intake, utilizing boost/protein supplementation at least once daily. He reports that he has actually gained 5 p ounds since his weight became a concern shortly after being diagnosed. Patient has been receiving daily radiation treatments, he is due to have another at 0730 tomorrow. Due to concerns for possible acute allergic reaction versus ACS with acute drop in blood pressure with systolic in the 60s, he was transferred to the ER. While in the cancer center/in route via EMS, he was administered 125 mg IV of Solu- Medrol x2 for a total of 250 mg, famotidine, Benadryl and aspirin. Allergies Allergy/AdvReac Type Severity Reaction Status Date / Time No Known Allergies Allergy Verified 12/16/22 11:20 Home Medications Medication Instructions Recorded Confirmed Type albuterol sulfate 90 mcg/actuation 2 puff inhalation Q6H PRN sob 10/29/22 12/16/22 History aerosol inhaler ipratropium 0.5 mg-albuterol 3 mg 3 ml inhalation Q8H wheezing 10/29/22 12/16/22 History (2.5 mg base)/3 mL nebulization soln Probiotic 1 dose PO QDL 11/19/22 12/16/22 History tamsulosin 0.4 mg capsule 0.4 mg PO QAM 11/19/22 12/16/22 History Magic Mouthwash 300 mL mouthwash 10 ml mucous membrane ACHS PRN 12/03/22 12/16/22 Rx dysphagia #300 mL prochlorperazine maleate 10 mg 10 mg PO Q6H PRN Nausea 12/08/22 12/16/22 History tablet (Compazine) oxycodone 5 mg capsule 5 - 10 mg PO .Q4-6H PRN Pain 12/15/22 12/16/22 History dexamethasone 4 mg tablet 20 mg PO UD 12/16/22 12/16/22 History prednisone 20 mg tablet 40 mg PO DAILY 12/16/22 12/16/22 History Past Med/Surg History Medical History DM type 2 (diabetes mellitus, type 2) Ex-smoker Frequent urination Hepatitis C Active History of fractured vertebra Lung cancer Dx'd 10/14/2022 Osteoporosis Ruptured intervertebral disc hx Surgical History (Updated 11/25/22 @ 08:51 by Annalisa Moran RN) H/O eye surgery 1996 H/O knee surgery 1999 History of bronchoscopy History of tonsillectomy and adenoidectomy 1972 Port-A-Cath in place (11/25/22) Insertion Access Port with Fluoroscopy Right Internal Jugular Vein(Right) - Colin Hernandez DO Family History Brother Stomach cancer Grandfather (Maternal) Prostate cancer Grandfather (Paternal) Colon cancer Father Heart disease Grandfather Stroke Social History Smoking Status: Former smoker Tobacco Type: Cigarettes packs per day: 1.5; Second Hand Exposure: No; Hx Alcohol Use: Yes Alcohol type: beer Alcohol Intake Frequency: 4 or More x per/Week Hx Substance Use: Yes Non-Prescribed Medications: Marijuana and Methamphetamines Last Used Substance: Days (ago) Preferred Language: [place] Communication Ability: Effective Visual Impairment: No Limitations Hearing Ability: Normal Certified Nurses Aide Required: No Beliefs That Will Affect Care: None Current Living Situation: Spouse current occupational status: disabled Feels Safe at Home: Yes during the past year weight has: decreased > 10 lbs Assistive Devices: Glasses and Hospital Bed Review of Systems Review of Systems: Constitutional: As per HPI, currently no fever sweats or chills Eyes: No diplopia, no worsening or blurred vision ENT: normal hearing, no trouble swallowing Respiratory: + Chronic cough, no sputum, dyspnea at rest or on exertion Cardiovascular: No chest pain, tightness or palpitations Abdomen: No pain, nausea, vomiting, diarrhea or constipation Musculoskeletal: No joint pain, calf pain, swelling Neurologic: No weakness, numbness/tingling, or balance problems Psychiatric: No anxiety or depression Skin: No rash or itch Physical Exam Physical Exam: General: awake, alert, no apparent distress, + thin, BMI 21.8 Head: Normocephalic, atraumatic ENT: PERRL, EOMI, no pharyngeal exudate, mucous membranes moist Chest: Diminished on the left upper lobe, on 2 LPM NC with sats at 99%, no adventitious breath sounds, + Mediport accessed in the right chest wall Cardiac: Regular rate and rhythm, no murmur, no JVD, normal peripheral pulses, good capillary refill Abdominal: NABS x 4 quadrants, soft, nondistended, nontender to palpation, no rebound or guarding Extremities: Normal inspection, no peripheral edema or erythema, calfs nontender to palpation Psych: Normal mood and affect Neuro: AAO x 3, strength intact bilaterally and rated 5/5, no motor deficits, speech is clear, no peripheral sensory deficits Results & Data Results & Data ([facility]) Vital Signs (Past 12 Hours) Vital Signs Pulse Pulse Resp BP BP Pulse Ox O2 Del Method 12/16/22 12:51 94 H 86/66 L 99 Room Air 12/16/22 12:00 99 Room Air 12/16/22 12:00 93 H 18 97/70 L 99 Room Air 12/16/22 11:11 112 H 18 101/78 94 Nasal Cannula 12/16/22 11:02 113 H O2 Flow Rate 12/16/22 12:51 12/16/22 12:00 12/16/22 12:00 12/16/22 11:11 2 12/16/22 11:02 Laboratory Results 12/16/22 Unknown Aerobic Blood Culture - Pending Blood Anaerobic Blood Culture - Pending 12/16/22 13:07 Aerobic Blood Culture - Pending Blood Anaerobic Blood Culture - Pending 12/16/22 12/16/22 12/16/22 13:17 11:10 11:02 WBC RBC Hgb Hct MCV MCH MCHC RDW Std Deviation RDW Coeff of Mathieu Plt Count MPV Immature Gran % (Auto) Neut % (Auto) Lymph % (Auto) Tyler % (Auto) Eos % (Auto) Baso % (Auto) Neut # (Auto) Lymph # (Auto) Tyler # (Auto) Eos # (Auto) Baso # (Auto) Immature Gran # (Auto) PT 11.2 INR 1.1 APTT 26.2 PTT Ratio 1.0 Sodium Potassium Chloride Carbon Dioxide Anion Gap BUN Creatinine Est Cr Clr Drug Dosing Est GFR ( Amer) Est GFR (Non-Af Amer) BUN/Creatinine Ratio Glucose Lactate 2.1 H* Calcium Magnesium Total Bilirubin AST ALT Alkaline Phosphatase Troponin I High Sens Total Protein Albumin Globulin Albumin/Globulin Ratio Lipase SARS-CoV-2, RNA, NAAT NEGATIVE 12/16/22 12/16/22 11:02 11:02 WBC 10.92 H RBC 4.92 Hgb 13.7 L D Hct 42.6 MCV 86.6 MCH 27.8 MCHC 32.2 RDW Std Deviation 42.6 RDW Coeff of Mathieu 13.8 Plt Count 316 MPV 9.5 Immature Gran % (Auto) 1.7 Neut % (Auto) 89.7 Lymph % (Auto) 3.9 Tyler % (Auto) 4.4 Eos % (Auto) 0.0 Baso % (Auto) 0.3 Neut # (Auto) 9.79 H Lymph # (Auto) 0.43 L Tyler # (Auto) 0.48 Eos # (Auto) 0.00 Baso # (Auto) 0.03 Immature Gran # (Auto) 0.19 PT INR APTT PTT Ratio Sodium 133 L Potassium 4.2 Chloride 101 Carbon Dioxide 22 Anion Gap 10 BUN 21 Creatinine 0.72 Est Cr Clr Drug Dosing 93.3 Est GFR ( Amer) 116.7 Est GFR (Non-Af Amer) 100.7 BUN/Creatinine Ratio 29.2 H Glucose 242 H Lactate Calcium 8.7 Magnesium 2.0 Total Bilirubin 0.3 AST 10 L ALT 14 Alkaline Phosphatase 72 Troponin I High Sens 9.7 Total Protein 6.3 Albumin 3.2 L Globulin 3.1 Albumin/Globulin Ratio 1.0 Lipase 15 SARS-CoV-2, RNA, NAAT Diagnostic Findings Chest X-Ray 12/16/22 10:57 SINGLE VIEW CHEST CLINICAL HISTORY: Atypical chest pain. FINDINGS: 2 AP, portable, upright chest radiographs are compared to study dated 11/25/2022 and correlated with chest CT dated 10/14/2022 as well as radiation treatment planning CT dated 12/08/2022. The examination is degraded by portable technique an apical lordotic positioning. A right internal jugular central venous infusion port is unchanged in position. The cardiomediastinal silhouette is unremarkable noting atherosclerotic calcification of the thoracic aorta. Adv anced emphysema and chronic interstitial thickening is similar to previous. The right lung appears clear. Masslike consolidation in the left upper lobe is similar to previous. No large pleural effusion or pneumothorax is identified. The skeletal structures are osteopenic. There is chronic posttraumatic deformity of the right clavicle. IMPRESSION: 1. Advanced emphysema with masslike consolidation in the left upper lung. This is similar to the recent treatment planning CT and likely corresponds to patient's known mass lesion with possible postobstructive pneumonitis. Clinical correlation will be required. 2. The right lung is clear. No pleural effusion is identified. ACT 112: Negative or not required by law. Electronically signed by: Jono Blanco M.D. 12/16/2022 11:44 AM ECG Additional Comments: Vent. Rate : 112 BPM Atrial Rate : 112 BPM P-R Int : 114 ms QRS Dur : 082 ms QT Int : 320 ms P-R-T Axes : 080 078 066 degrees QTc Int : 436 ms Poor data quality, interpretation may be adversely affected Sinus tachycardia Otherwise normal ECG When compared with ECG of 14-OCT-2022 13:36, Premature atrial complexes are no longer Present Code Status & VTE Plan Code Status Full code - discussed with the patient at bedside Supervising Physician Co-Signing Physician Notes 61-year-old male with recent diagnosis of NSCLC 10/15/2022 with metastasis currently undergoing chemotherapy and radiation therapy. Had his first chemotherapy about 3 weeks ago with no problem, and today immediately after into his second chemotherapy infusion with Taxol/carboplatinum, he developed shakiness/nausea/warmth/drop in blood pressure/chest pain. his SBP dropped to 60s, he received Solu-Medrol/Benadryl/famotidine/aspirin. 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 Pt reports quitting smoking since 6.5 years and drinking since last few months. He is being managed for the following: Transfusion reaction to chemotherapy Brief hypotensive episode leading to chest pain and hemoconcentration status (Increase WBC, LA) vitals getting better, will continue with IV fluids, monitor over telemetry, trend troponin, get echo. NSCLC, history of colon consult radiation oncology and medical oncology On examination: GENERAL: Alert and oriented x3. NAD, on RA. HEENT: No pallor, no icterus. Pupils equal, round and reactive to light. Oral mucosa moist. NECK: No JVD, no neck masses. Rt chest w/ mediport Access. HEART: S1 and S2 heard. Regular rate and rhythm. No murmur, no gallop. RESPIRATORY SYSTEM: Normal AP diameter. No accessory muscle use. No wheezing, no crackles. ABDOMEN: Soft, bowel sounds present, nontender, no distention. CENTRAL NERVOUS SYSTEM: No facial droop. Speech is clear. Obeys simple commands. Moves extremities. EXTREMITIES: No edema, no erythema seen. I have seen and examined the patient and have discussed the case with the provider above. I agree with the assessment and plan as stated. (3) Leukocytosis Leukocytosis type: unspecified Qualified Code(s): D72.829 - Elevated white blood cell count, unspecified
[2022-12-16] MEDS ORDERED: oxyCODONE HCL IR 5 MG TAB (IMMEDIATE RELEASE) PO STA (14:42)
[2022-12-16] MEDS: LEVALBUTEROL 1.25MG/0.5ML NEB NEB SCH ×2 (15:00→19:40)
[2022-12-16] MEDS ORDERED: MoRPHine SULFATE 2 MG/ML CARP IV PRN (15:37)
[2022-12-16] MEDS ORDERED: NON-FORMULARY MEDICATION (Magic Mouthwash 300 mL mouthwash) mucous membrane PRN (15:37)
[2022-12-16] MEDS ORDERED: PROCHLORPERAZINE MALEATE 10 MG TAB PO PRN (15:37)
[2022-12-16] MEDS ORDERED: ACETAMINOPHEN 325 MG TAB PO PRN (15:37)
[2022-12-16] MEDS ORDERED: ONDANSETRON INJ 2 MG/ML 2 ML VIAL IV PRN (15:40)
[2022-12-16] MEDS ORDERED: Magic Mouthwash 240mL PO PRN (15:44)
[2022-12-16] MEDS: SODIUM CHLORIDE 0.9% 1000ML 1,000 ML IV SCH (16:07)
[2022-12-16] MEDS ORDERED: guaiFENesin 600 MG TABCR PO SCH (21:20)
[2022-12-16] MEDS: oxyCODONE HCL IR 5 MG TAB (IMMEDIATE RELEASE) PO PRN (22:02)
[2022-12-16] MEDS ORDERED: traZODone HCL 50 MG TAB PO ONE (23:10)
[2022-12-17] MEDS: LEVALBUTEROL 1.25MG/0.5ML NEB NEB SCH ×4 (00:09→12:16)
[2022-12-17] MEDS: SODIUM CHLORIDE 0.9% 1000ML 1,000 ML IV SCH (05:49)
[2022-12-17] MEDS: oxyCODONE HCL IR 5 MG TAB (IMMEDIATE RELEASE) PO PRN ×2 (05:49→13:24)
[2022-12-17 06:34] LABS: Calcium 8.4 mg/dl (8.5-10.1); Est GFR (African American) 118.1 ml/min; Est GFR (Non-African American) 101.9 ml/min; Magnesium 2.1 mg/dl (1.7-2.4); Phosphorus 4.1 mg/dl (2.5-4.9); Potassium 4.2 mmol/L (3.5-5.1)
--- NOTE | 2022-12-17 06:35 | Consultation ---
Date of Consultation December 17, 2022 Assessment & Plan (1) Allergic: Severe allergic reaction to his second dose of Taxol which stabilized with postinfusion additional doses of diphenhydramine and Solu-Medrol. Leukocytosis, hyperglycemia normal certainly a consequence of the severe stress and use of high doses of steroids and do not likely represent an ongoing issue. His hyponatremia is modest and nonprogressive and does not seem to be associated with any major neurological issues. EKG showed no ST segment elevations or other abnormalities beyond sinus tachycardia Plan Seems to have quickly stabilized from what was a severe allergic reaction to Taxol. So long as his exam and labs remained stable today could be discharged for outpatient follow-up History of Present Illness Reason for Consultation: Hypertension/chest pain/dyspnea in the context of an apparent allergic reaction to Taxol chemotherapy. Attending Physician: Umu Prabhakar MD History of Present Illness A 1.5 pack/day smoker for 40 years though he quit in 2015, patient had presented with a proptosis since last summer, 20 pound weight loss, and a postobstructive pneumonia in October associated with a large infiltrative left perihilar mass approximately 6 cm in size. PET scan showed extensive mediastinal pathologic adenopathy, a rectal nodule which is probably a separate process. Separate review of the PET scan by radiation oncology indicated a left lateral cervical spine lesion though on further review with radiology it was felt that might not represent an active lesion. 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 Patient started on Taxol/carbo/radiation 1 week ago and tolerated initial doses well. Early into the infusion of his Taxol yesterday, however, he became hypotensive, diaphoretic, reported chest pain and dyspnea. Oxygen levels were maintained at greater than 100% with some supplemental nasal cannula, additional doses of diphenhydramine and 2 doses of Solu-Medrol resulted in a rise of his blood pressures from 60/30 to the 90/60 range. He remains symptomatic and was transferred to the emergency department and admitted. His symptoms of resolved and currently he is feeling relatively well Allergies Allergy/AdvReac Type Severity Reaction Status Date / Time No Known Allergies Allergy Verified 12/16/22 11:20 Home Medications Medication Instructions Recorded Confirmed Type albuterol sulfate 90 mcg/actuation 2 puff inhalation Q6H PRN sob 10/29/22 12/16/22 History aerosol inhaler ipratropium 0.5 mg-albuterol 3 mg 3 ml inhalation Q8H wheezing 10/29/22 12/16/22 History (2.5 mg base)/3 mL nebulization soln Probiotic 1 dose PO QDL 11/19/22 12/16/22 History tamsulosin 0.4 mg capsule 0.4 mg PO QAM 11/19/22 12/16/22 History Magic Mouthwash 300 mL mouthwash 10 ml mucous membrane ACHS PRN 12/03/22 12/16/22 Rx dysphagia #300 mL prochlorperazine maleate 10 mg 10 mg PO Q6H PRN Nausea 12/08/22 12/16/22 History tablet (Compazine) oxycodone 5 mg capsule 5 - 10 mg PO .Q4-6H PRN Pain 12/15/22 12/16/22 History dexamethasone 4 mg tablet 20 mg PO UD 12/16/22 12/16/22 History prednisone 20 mg tablet 40 mg PO DAILY 12/16/22 12/16/22 History Patient History Medical History DM type 2 (diabetes mellitus, type 2) Ex-smoker Frequent urination Hepatitis C Active History of fractured vertebra Lung cancer Dx'd 10/14/2022 Osteoporosis Ruptured intervertebral disc hx Surgical History (Updated 11/25/22 @ 08:51 by Annalisa Moran RN) H/O eye surgery 1996 H/O knee surgery 1999 History of bronchoscopy History of tonsillectomy and adenoidectomy 1972 Port-A-Cath in place (11/25/22) Insertion Access Port with Fluoroscopy Right Internal Jugular Vein(Right) - Colin Hernandez DO Family History Brother Stomach cancer Grandfather (Maternal) Prostate cancer Grandfather (Paternal) Colon cancer Father Heart disease Grandfather Stroke Social History Smoking Status: Former smoker Tobacco Type: Cigarettes packs per day: 1.5; Second Hand Exposure: No; Hx Alcohol Use: Yes Alcohol type: beer Alcohol Intake Frequency: 4 or More x per/Week Hx Substance Use: Yes Non-Prescribed Medications: Marijuana and Methamphetamines Last Used Substance: Days (ago) Preferred Language: Palauan Communication Ability: Effective Visual Impairment: No Limitations Hearing Ability: Normal 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 Beliefs That Will Affect Care: None Current Living Situation: Spouse current occupational status: disabled Feels Safe at Home: Yes during the past year weight has: decreased > 10 lbs Assistive Devices: Glasses and Hospital Bed Physical Exam Physical Exam: Vital signs stable, lung/cardiac/abdominal examinations are currently stable and he is neurologically completely intact Results & Data ([facility]) Vital Signs (Past 12 Hours) Vital Signs Temp Pulse Pulse Resp BP Pulse Ox O2 Del Method 12/17/22 02:38 36.4 C L 85 16 108/72 100 Room Air 12/16/22 22:00 85 12/17/22 00:07 79 18 100 Room Air 12/16/22 20:15 Room Air 12/16/22 23:02 36.4 C L 87 18 101/72 100 Room Air 12/16/22 19:42 79 18 100 Room Air 12/16/22 19:32 36.4 C L 83 19 105/73 100 Room Air PG Care Time/CCT Total # of Minutes Spent Total Time Spent with Patient: Total time spent is greater than 50% in coordination of care (as documented) at patient's floor/unit and/or counseling patient: Coding Level of Care Code 74507 IN/OBS CONSULT LVL 2,35M Diagnoses Allergic T78.40XA
[2022-12-17 07:49] LABS: Hematocrit (blood only) 28.8 % (42.0-52.0); Hemoglobin 9.4 g/dl (14.0-18.0); Mean Corpuscular Hemoglobin 28.1 pg (25.0-34.0); Mean Corpuscular Hgb Conc 32.6 g/dL (32.0-36.0); Mean Corpuscular Volume 86.2 fL (80.0-100.0); Mean Platelet Volume 9.1 fL (9.4-12.4); Platelet Count 218 K/uL (130-400); RDW Coefficient of Variation 13.9 % (11.5-14.5); RDW Standard Deviation 42.5 fL (36.4-46.3); Red Blood Count 3.34 M/uL (4.70-6.10); White Blood Count 12.99 K/ul (4.8-10.8)
[2022-12-17] MEDS ORDERED: TAMSULOSIN HCL 0.4 MG CAP PO SCH (09:00)
[2022-12-17] MEDS ORDERED: ENOXAPARIN INJ 40 MG/0.4 ML SYR SQ SCH (09:00)
[2022-12-17] MEDS ORDERED: ADVANCED PROBIOTIC 1250 MG CAPSULE PO SCH (09:45)
[2022-12-17] MEDS ORDERED: guaiFENesin 600 MG TABCR PO SCH (09:45)
--- NOTE | 2022-12-17 09:51 | Radiation OncologyConsultation ---
Date of Consultation December 17, 2022 Assessment & Plan (1) Squamous cell carcinoma of left lun-year-old who has been diagnosed with squamous cell carcinoma of the left lung. He has been followed by Dr. Lee and Dr. Perez. Combined radiation and chemotherapy was initiated on 11/26/2022. He has been tolerating his radiation treatments well. He had some dysphagia. He has been given Magic mouthwash. He also uses manuka honey. He is shown a good response to treatment. The lung has improved and his treatment plan had to be changed due to the good response. On 12/16/2022. He had a severe reaction to Taxol. He was taken to the emergency room and then admitted. He has been doing well and feels well today. He would like to proceed with his radiation treatment for today. We will notify the therapist and arrangements will be made for him to be brought down to radiation therapy today. Plan ATTENDING ADDENDUM: I agree with the note that was dictated by the midlevel provider. The patient is currently under treatment for radiation therapy for lung cancer. The patient was admitted to the hospital for symptoms and medical problems likely unrelated to his radiation therapy. The patient is doing well and would like to come down for radiation therapy. The patient was brought down today for radiation therapy. History of Present Illness Reason for Consultation: To discuss continuing radiation therapy. Requesting Physician: Umu Prabhakar MD Attending Physician: Umu Prabhakar MD History of Present Illness 25 pound weight loss over 6 months. 10/14/2022. Admission for postobstructive pneumonia. 10/14/2022. Chest CT. No evidence of pulmonary embolism. There is a large infiltrative left perihilar mass which measured 6 cm in length. This encases and occludes the bronchovascular structures of the left hilum. Postobstructive pneumonia. Mild enlarged mediastinal and right hilar lymph nodes are indeterminate. Treatment with antibiotic therapy. 10/14/2022. Brain MRI. No intracranial metastasis. 10/15/2022. Medical oncology consultation. (Dr. Lee) clinical stage III presumed lung cancer. Awaiting final pathology. 10/15/2022. Status post bronchoscopy with EBUS (Dr. Layton). Pathology reveals metastatic squamous cell carcinoma at 4L lymph node. Left main mass endobronchial biopsy. Poorly differentiated squamous cell carcinoma. PD-L1 positive. Lymph node 10 R positive for metastatic squamous cell carcinoma. 10/15/2022. Chest x-ray. Post bronchoscopy. Interval worsening of left-sided airspace disease likely represents aspiration/pneumonia. 10/16/2022. Chest x-ray. Follow-up lung consolidation. Atelectasis/consolidation throughout the left lung is again noted. This is secondary to known left hilar mass. The mass itself is not visualized on x-ray. Consolidation in the left midlung appears modestly increased from yesterday. Left pleural effusion. 10/17/2022. Chest x-ray. Interval improvement in left lung aeration. Persistent left lung airspace opacity with volume loss. Left hilar mass better depicted on prior CT. PET/CT to be ordered by Dr. Pierson and follow-up appointment pending. 10/27/2022. Primary care provider established (Dr. Genao). Patient started on a albuterol inhaler as well as nebulizer. 11/26/2022. Initiation of combined radiation and chemotherapy. Chemotherapy comprised of Taxol and carboplatin. 12/16/2022. The patient has received 10 fractions of radiation therapy. He has been receiving Taxol and carboplatin weekly. He unfortunately developed a severe reaction to the Taxol. His blood pressure became very low. A code was called. He was taken to the emergency room and admitted. 12/17/2022. Patient states he is doing well. Since being placed on steroid therapy he has energy and his respiratory status is improved. He does have some congestion that he notes in the left chest. He wants to proceed with his radiation treatment today. Allergies Allergy/AdvReac Type Severity Reaction Status Date / Time No Known Allergies Allergy Verified 12/16/22 11:20 Home Medications Medication Instructions Recorded Confirmed Type albuterol sulfate 90 mcg/actuation 2 puff inhalation Q6H PRN sob 10/29/22 12/16/22 History aerosol inhaler ipratropium 0.5 mg-albuterol 3 mg 3 ml inhalation Q8H wheezing 10/29/22 12/16/22 History (2.5 mg base)/3 mL nebulization soln Probiotic 1 dose PO QDL 11/19/22 12/16/22 History tamsulosin 0.4 mg capsule 0.4 mg PO QAM 11/19/22 12/16/22 History Magic Mouthwash 300 mL mouthwash 10 ml mucous membrane ACHS PRN 12/03/22 12/16/22 Rx dysphagia #300 mL prochlorperazine maleate 10 mg 10 mg PO Q6H PRN Nausea 12/08/22 12/16/22 History tablet (Compazine) oxycodone 5 mg capsule 5 - 10 mg PO .Q4-6H PRN Pain 12/15/22 12/16/22 History dexamethasone 4 mg tablet 20 mg PO UD 12/16/22 12/16/22 History Patient History Medical History DM type 2 (diabetes mellitus, type 2) Ex-smoker Frequent urination Hepatitis C Active History of fractured vertebra Lung cancer Dx'd 10/14/2022 Osteoporosis Ruptured intervertebral disc hx Surgical History (Updated 11/25/22 @ 08:51 by Annalisa Moran RN) H/O eye surgery 1996 H/O knee surgery 1999 History of bronchoscopy History of tonsillectomy and adenoidectomy 1972 Port-A-Cath in place (11/25/22) Insertion Access Port with Fluoroscopy Right Internal Jugular Vein(Right) - Colin Hernandez DO Family History Brother Stomach cancer Grandfather (Maternal) Prostate cancer Grandfather (Paternal) Colon cancer Father Heart disease Grandfather Stroke Social History Smoking Status: Former smoker Tobacco Type: Cigarettes packs per day: 1.5; Second Hand Exposure: No; Hx Alcohol Use: Yes Alcohol type: beer Alcohol Intake Frequency: 4 or More x per/Week Hx Substance Use: Yes Non-Prescribed Medications: Marijuana and Methamphetamines Last Used Substance: Days (ago) Preferred Language: [place] Communication Ability: Effective Visual Impairment: No Limitations Hearing Ability: Normal Blueprint Processor Required: No Beliefs That Will Affect Care: None Current Living Situation: Spouse current occupational status: disabled Feels Safe at Home: Yes during the past year weight has: decreased > 10 lbs Assistive Devices: None Review of Systems Review of Systems: 13 point review of system completed. Negative other than what is mentioned in the history of present illness. He does have a mild headache today. Physical Exam Constitutional: WD/WN, vitals as above Eyes: EOM intact bilaterally ENMT: Ears: no hearing impairment Neck: trachea midline, no thyromegaly Respiratory: no respiratory distress Auscultation: + wheezes (Left lung almaguer.) Cardiovascular: RRR, no murmur, no edema Gastrointestinal (Abdomen): normal bowel sounds, soft, nontender, no hepatosplenomegaly Skin: no rashes, warm and dry Neurologic: Normal strength and coordination. Psychiatric: A+Ox3, euthymic affect Lymphatic: no inguinal lymphadenopathy Time Spent Midlevel I spent [10] minutes in preparation for this follow up evaluation including reviewing all the clinical records, reviewing laboratory studies, pathology reports and imaging results. I spent [20] minutes with direct face to face interaction with the patient an d/or family including performing a physical exam and answering all questions. I spent [10] minutes documenting this patient's visit.
[2022-12-17 10:54] VITALS: O2SAT 100
[2022-12-17 12:03] VITALS: BP 94/56; TEMP 97.5
[2022-12-17 12:20] VITALS: PULSE 80
--- NOTE | 2022-12-17 13:36 | Discharge Summary ---
Date of Service December 17, 2022 Admission HPI Per Admitting Provider This is a 61-year-old male with PMHx of recent diagnosis of non-small cell lung carcinoma, diagnosed 10/15/2022, CT4 CN3, CMx IIIC/MARILY, with cervical spine lesion, rectal colon lesions, currently receiving weekly Taxol/carboplatinum. The patient was at the cancer center earlier today receiving his second round of chemotherapy when he acutely developed dizziness, felt hot, nausea and developed chest pain mid sternally. This began a few moments after initiation of his chemotherapy infusion through mediport. Pt notes taking scheduled prednisone last night in anticipation of his treatment as scheduled. Patient reports due to his previous left-sided rib fracture he has been using oxycodone 10 mg every 6 hours for pain. He has been tolerating p.o. intake, utilizing boost/protein supplementation at least once daily. He reports that he has actually gained 5 pounds since his weight became a concern shortly after being diagnosed. Patient has been receiving daily radiation treatments, he is due to have another at 0730 tomorrow. Due to concerns for possible acute allergic reaction versus ACS with acute drop in blood pressure with systolic in the 60s, he was transferred to the ER. While in the cancer center/in route via EMS, he was administered 125 mg IV of Solu- Medrol x2 for a total of 250 mg, famotidine, Benadryl and aspirin. Admission Exam Per Admitting Provider General: awake, alert, no apparent distress, + thin, BMI 21.8 Head: Normocephalic, atraumatic ENT: PERRL, EOMI, no pharyngeal exudate, mucous membranes moist Chest: Diminished on the left upper lobe, on 2 LPM NC with sats at 99%, no adventitious breath sounds, + Mediport accessed in the right chest wall Cardiac: Regular rate and rhythm, no murmur, no JVD, normal peripheral pulses, good capillary refill Abdominal: NABS x 4 quadrants, soft, nondistended, nontender to palpation, no rebound or guarding Extremities: Normal inspection, no peripheral edema or erythema, calfs nontender to palpation Psych: Normal mood and affect Neuro: AAO x 3, strength intact bilaterally and rated 5/5, no motor deficits, speech is clear, no peripheral sensory deficits Principal Diagnosis Allergic reaction/transfusion reaction to taxol Hypotensive episode w/ chest pain Discharge Exam GENERAL: Alert and oriented x3. NAD, on RA. HEENT: No pallor, no icterus. Pupils equal, round and reactive to light. Oral mucosa moist. NECK: No JVD, no neck masses. Rt chest w/ mediport Access. HEART: S1 and S2 heard. Regular rate and rhythm. No murmur, no gallop. RESPIRATORY SYSTEM: Normal AP diameter. No accessory muscle use. No wheezing, no crackles. ABDOMEN: Soft, bowel sounds present, nontender, no distention. CENTRAL NERVOUS SYSTEM: No facial droop. Speech is clear. Obeys simple commands. Moves extremities. EXTREMITIES: No edema, no erythema seen. Discharge Data Allergies Allergy/AdvReac Type Severity Reaction Status Date / Time No Known Allergies Allergy Verified 12/16/22 11:20 Consultations 12/16/22 13:59 ED Decision to Admit Stat 12/16/22 14:53 Consult Radiation Oncology Routine 12/16/22 15:36 Consult Oncology Routine Hospital Course (1) Allergic: Plan 61-year-old male with recent diagnosis of NSCLC 10/15/2022 with metastasis currently undergoing chemotherapy and radiation therapy. Had his first chemotherapy about 3 weeks ago with no problem, and today immediately after into his second chemotherapy infusion with Taxol/carboplatinum, he developed shakiness/nausea/warmth/drop in blood pressure/chest pain. his SBP dropped to 60s, he received Solu-Medrol/Benadryl/famotidine/aspirin. 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 Pt reports quitting smoking since 6.5 years and drinking since last few months. He was managed for the following: Allergic/ Transfusion reaction to chemotherapy: appreciate medical onc recs. Pt hemodynamically stable. PT/OT evaled, cleared him Brief hypotensive episode leading to chest pain and hemoconcentration status (Increase WBC, LA): pt now stable, advised to increase protein intake and c/w pedialyte solution for several days on dc. Getting radiation treatment today. Will follow up with ECHO, if normal pt should be able to go. Patient discharged home with following instruction at the point of discharge: Follow-up with your primary care physician within a week time and likely you will need labs CBC/CMP/magnesium/phosphorus. Follow-up with your medical oncology and radiation oncology as an outpatient as prior. You can take [id number] Pedialyte solution up to 1 L/day spread throughout the day for several days and increase protein intake as part of your regular diet. Take your meds as prescribed. Home Health Attestation I certify that this patient is under my care and that I, or a physicians civil engineering assistant working with me, had a face to-face encounter that meets the home health [id number] encounter requirements with this patient. The encounter with the patient was in whole, or in part, for the following medical condition, which is the primary reason for home health care (list medical condition): I certify that, based on my findings, the following services are medically necessary home health services: My clinical findings support the need for the above services because: Further, I certify that my clinical findings support that this patient is homebound (i.e. absences from home require considerable and taxing effort and are for medical reasons or rastafari services or infrequently or of short duration when for other reasons) because: Certification for Home Health Services: Based on the above findings, I certify that this patient is confined to the home and needs intermittent usp care, physical therapy and/or speech therapy or continues to need occupational therapy. The patient is under my care, and I have initiated the establishment of the plan of care. This patient will be followed by a physician who will periodically review the plan of care. Total Time Total Time Spent Total Time Spent (In Minutes): 45 Discharge Plan Discharge Items Patient Disposition: Home - Self-Care Reason For Visit: CHEST PAIN, HX OF NSCLC Discharge Diagnosis: Allergic reaction/transfusion reaction to taxol Hypotensive episode w/ chest pain Condition on Discharge: Fair Activity: Resume your previous activity Non-emergency contact: Primary Care Provider Call non-emergency contact if: you have any medication questions, your symptoms worsen and your temperature is above 101 Follow-up/Referrals: Wood Genao MD [Primary Care Provider] - (Date & Time 12/22/2022 9:00 AM Provider Wood Genao MD [facility] ) Diet: Regular Addtl Attending Provider Instructions: Follow-up with your primary care physician within a week time and likely you will need labs CBC/CMP/magnesium/phosphorus. Follow-up with your medical oncology and radiation oncology as an outpatient as prior. You can take [id number] Pedialyte solution up to 1 L/day spread throughout the day for several days and increase protein intake as part of your regular diet. Take your meds as prescribed. Pending Studies at Discharge: Yes (admitting blood culture final results. ) Stand-Alone Forms: [facility], Smoking Cessation Medications and DC Order Prescriptions: Continued prochlorperazine maleate [Compazine] 10 mg tablet 10 mg PO Q6H PRN (Reason: Nausea) oxycodone 5 mg capsule 5 - 10 mg PO .Q4-6H PRN (Reason: Pain) ipratropium-albuterol 0.5 mg-3 mg(2.5 mg base)/3 mL solution for nebulization 3 ml inhalation Q8H albuterol sulfate 90 mcg/actuation HFA aerosol inhaler 2 puff inhalation Q6H PRN (Reason: sob) Magic Mouthwash 300 mL mouthwash 10 ml mucous membrane ACHS PRN (Reason: dysphagia) Qty: 300 3RF tamsulosin 0.4 mg Capsule 0.4 mg PO QAM Probiotic 1 dose PO QDL dexamethasone 4 mg tablet 20 mg PO UD Discontinued prednisone 20 mg tablet 40 mg PO DAILY Discharge Orders: Discharge Order (Routine); Ordered 12/17/22 Ordered By: Umu Prabhakar Admission Data Admit Date/Time: 12/16/22 14:18 Attending Provider: Umu Prabhakar Admit Provider: Umu Prabhakar Primary Care Provider: Wood Genao Other Providers: Umu Prabhakar ; Mack Perez ; Cassius Lee
[2022-12-17] MEDS ORDERED: HEPARIN 100 UNIT/ML 5ML FLUSH FLUSH ONE (14:49)
--- NOTE | 2022-12-18 05:57 | Electrocardiogram Report ---
Test Reason : Blood Pressure : / mmHG Vent. Rate : 089 BPM Atrial Rate : 089 BPM P-R Int : 122 ms QRS Dur : 088 ms QT Int : 364 ms P-R-T Axes : 056 073 068 degrees QTc Int : 442 ms Normal sinus rhythm Normal ECG When compared with ECG of 16-DEC-2022 11:05, No significant change was found Confirmed by Kevin Higginbotham ([id number]) on 12/18/2022 5:56:57 AM Referred By: REFERRED SELF Confirmed By:Kevin Higginbotham
== END 2022-12-17 15:30 | disposition home or self-care (01) | DRG 313 ==
LOC: ED 10:54 → 2E 14:18

== ENCOUNTER 2023-01-18 14:20 | Inpatient (IN) ==
[2023-01-18] MEDS ORDERED: SODIUM CHLORIDE 0.9% 1000ML 1,000 ML IV ONE ×2 (14:44→16:15)
--- NOTE | 2023-01-18 14:54 | Emergency Department Note ---
Impression & Plan Pneumonia, Cellulitis, Acute alteration in mental status ED Provider Note NAME: JESUS MAHARAJ AGE: 62 SEX: M : 1960 ARRIVES VIA: Walk-In INFORMANT: Patient, the patient's significant other ED PROVIDER(S): Jordan Segura DO CHIEF COMPLAINT: Altered mental status HPI: The patient is a 62-year-old male who has a history of lung cancer who presented to the emergency department for an evaluation of altered mental status. His significant other does give most of the history she is very concerned that he has an infection. He currently is being treated for a burn on his left upper chest from radiation. He states that this area does not hurt at this time but his significant other has noticed some drainage. He denies having any abdominal pain at this time but did complain of abdominal pain earlier. He has had no fever. He has had a cough as well as difficulty breathing. The patient denies having any recent trauma. He denies having any headaches. He states has been compliant with his outpatient medications otherwise. ROS: See above HPI for pertinent positives & negatives. A total of 10 systems reviewed and were otherwise negative. PAST MEDICAL HISTORY: See Below PAST SURGICAL HISTORY: See Below FAMILY HISTORY: See Below SOCIAL HISTORY: See Below HOME MEDICATIONS: See Below ALLERGIES: See Below VITALS: See Below PHYSICAL EXAMINATION: GENERAL: The patient is awake and somewhat listless appearing. He does not appear to be uncomfortable. EYES: The conjunctivae are clear. The pupils are round and reactive. EARS, NOSE, MOUTH AND THROAT: The nose is without any evidence of any deformity. NECK: The neck is nontender and supple. RESPIRATORY: Diminished breath sounds are noted in the right lung field. There were scattered rhonchi noted throughout. CARDIOVASCULAR: Tachycardic and regular heart sounds were noted to auscultation. There is no definite murmur. GASTROINTESTINAL: The abdomen is soft. Abdomen is nontender. MUSCULOSKELETAL/EXTREMITIES: There is no evidence of gross deformity full range of motion is noted in the hips and shoulders. SKIN: There is no pedal edema. There was a large radiation burn on the left upper chest. There is areas of granulation tissue. There was some purulent drainage noted at the inferior portion. NEUROLOGIC: Patient is awake alert and oriented x3. MEDICAL DECISION MAKING: The patient is a 62-year-old male who has a history of lung cancer who presented to the emergency department for multiple complaints. The patient's significant other brought him to the emergency department. Apparently he has had weight loss shortness of breath and cough. He is also been confused. He has an area on his left upper chest from radiation that appears to be infected. They have been placing Silvadene ointment to this area but the is concerned because it appears to be worsening. On physical exam there is some granulation tissue but the area is very erythematous. The patient was treated with IV antibiotics in emergency department. He was also treated with IV fluids. He was found to have signs of pneumonia on chest x-ray. Given his initial hypotension and his underlying medical history I discussed his condition with the on-call [facility] hospitalist. They have agreed to evaluate the patient in the emergency department for further management and disposition. Triage Nursing notes reviewed. Prior medical records reviewed Vital Signs: reviewed and remarkable for initial hypotension and tachycardia. Differential diagnosis: Infection, hypoglycemia, electrolyte abnormalities, overdose, toxicologic, cardiac sources, intracerebral event, neurologic, trauma, as well as other pathologies. ER treatment provided: See below Diagnostics interpreted by me: ECG: EKG was obtained in the emergency department. My interpretation is sinus tachycardia at 114 bpm. There is no ectopy. LVH was suggested by voltage criteria. This was compared to a tracing from December 16, 2022. No changes were noted. Cardiac Monitoring: An order was placed for continuous cardiac monitoring. The monitor shows a rate of 115 bpm with sinus tachycardia. Laboratory studies: As stated above and show below. Imaging studies: See below. Radiographic imaging was reviewed by myself Consultation(s): I discussed this case with Dr. Brown [facility]. Past Med/Surg History Medical History Chemotherapy adverse reaction LAST WEEK: BLOOD PRESSURE DECREASED/ REQUIRING 1 NIGHT HOSPITAL STAY FOR OBSERVATION, [facility] DM type 2 (diabetes mellitus, type 2) Ex-smoker Frequent urination ONGOING ISSUE Hepatitis C Active History of chest pain RECENT DX LUNG CA...TESTING...C/P SUSPECTED TO BE DUE TO TUMOR LOCATION AT LUNG ENTRY - WANTED TO PLACE A STENT/UNABLE TO STENT History of fracture of orbit HX RIGHT ORBITAL FX...SX/TITANIUM IMPLANT History of fractured vertebra History of influenza OCT 2022 History of vascular access device CURRENT/ PT REPORTS BELIEVES HIS IS NON POWER Lung cancer Dx'd 10/14/2022/CURRENTLY CHEMO AND RADIATION Osteoporosis Ruptured intervertebral disc hx Surgical History H/O eye surgery 1996 H/O knee surgery 1999 History of bronchoscopy History of tonsillectomy and adenoidectomy 1972 Port-A-Cath in place (11/25/22) Insertion Access Port with Fluoroscopy Right Internal Jugular Vein(Right) - Colin Hernandez DO PT REPORTS HE THINKS HIS IS A NON POWER PORT Family History Brother Stomach cancer Grandfather (Maternal) Prostate cancer Grandfather (Paternal) Colon cancer Father Heart disease Grandfather Stroke Social History Smoking Status: Never smoker Tobacco Type: Cigarettes packs per day: 1.5; Second Hand Exposure: No; Hx Alcohol Use: Yes Alcohol type: beer Alcohol Intake Frequency: 4 or More x per/Week Hx Substance Use: No Preferred Language: Citizen Of [place] Communication Ability: Effective Visual Impairment: No Limitations Hearing Ability: Normal Supervisor [employer] Education Required: No Beliefs That Will Affect Care: None Current Living Situation: Other 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 current occupational status: disabled Feels Safe at Home: Yes during the past year weight has: decreased > 10 lbs Assistive Devices: None Allergies Allergies Allergy/AdvReac Type Severity Reaction Status Date / Time No Known Allergies Allergy Verified 12/29/22 07:57 Home Meds Home Medications Medication Instructions Recorded Confirmed albuterol sulfate 90 mcg/actuation 2 puff inhalation Q6H PRN sob 10/29/22 01/05/23 aerosol inhaler ipratropium 0.5 mg-albuterol 3 mg 3 ml inhalation Q8H wheezing 10/29/22 01/05/23 (2.5 mg base)/3 mL nebulization soln tamsulosin 0.4 mg capsule 0.4 mg PO QAM 11/19/22 01/05/23 prochlorperazine maleate 10 mg 10 mg PO Q6H PRN Nausea 12/08/22 01/05/23 tablet (Compazine) oxycodone 5 mg capsule 5 - 10 mg PO UD PRN Pain 12/15/22 01/05/23 dexamethasone 4 mg tablet 20 mg PO 2XWK 12/16/22 01/05/23 benzonatate 100 mg capsule 100 mg PO TID PRN cough 12/22/22 01/05/23 Magic Mouthwash 300 mL mouthwash 10 ml mucous membrane UD PRN 12/24/22 01/05/23 dysphagia docusate sodium 100 mg tablet 100 mg PO BID 12/24/22 01/05/23 (Stool Softener) famotidine 20 mg tablet (Pepcid) 10 mg PO BID 12/24/22 01/05/23 lactobacillus combination no.4 3 3,000 mmu cells PO QAM 12/24/22 01/05/23 billion cell capsule (Probiotic) loratadine 10 mg tablet (Claritin) 10 mg PO QAM 12/24/22 01/05/23 montelukast 10 mg tablet 10 mg PO UD 12/24/22 01/05/23 Previous Rx's Medication Instructions Recorded sucralfate 100 mg/mL oral 10 ml PO QID #420 mL 01/07/23 suspension (Carafate) silver sulfadiazine 1 % topical 1 applic topical BID #85 grams 01/12/23 cream (Silvadene) Results & Data (ED) Vital Signs Vital Signs - 24 hr 01/18/23 14:35 01/18/23 14:57 01/18/23 14:44 Temperature 37.2 C Temperature Source Temporal Artery Scan Pulse Rate 121 H 115 H Pulse Rate [Apical] Respiratory Rate 18 Respiratory Effort / Characteristics Non-Labored Spontaneous Respiratory Depth Normal Respiratory Pattern Regular Blood Pressure 97/68 L Blood Pressure [Left Arm] Blood Pressure Mean 77 Blood Pressure Mean [Left Arm] Blood Pressure Position Sitting Pulse Oximetry 98 98 Oxygen Delivery Method Room Air Sepsis Recent Fever Within 48 Hours No Sepsis New/Unexplained Change in Mental Status N/A Sepsis Action Taken by Nursing No Action Required 01/18/23 14:44 Temperature Temperature Source Pulse Rate Pulse Rate [Apical] 112 H Respiratory Rate 14 Respiratory Effort / Characteristics Respiratory Depth Respiratory Pattern Blood Pressure Blood Pressure [Left Arm] 111/79 Blood Pressure Mean Blood Pressure Mean [Left Arm] 89 Blood Pressure Position Pulse Oximetry 97 Oxygen Delivery Method Sepsis Recent Fever Within 48 Hours Sepsis New/Unexplained Change in Mental Status Sepsis Action Taken by [facility] Medications Current Medication List: was personally reviewed by me Laboratory Data Attestation: I reviewed the patient's lab results. 01/18/23 14:58 01/18/23 14:58 Lab Results 01/18/23 01/18/23 01/18/23 Range/Units 14:58 14:58 14:58 WBC 7.66 (4.8-10.8) K/ul RBC 3.79 L (4.70-6.10) M/uL Hgb 11.0 L (14.0-18.0) g/dl Hct 33.2 L (42.0-52.0) % MCV 87.6 (80.0-100.0) fL MCH 29.0 (25.0-34.0) pg MCHC 33.1 (32.0-36.0) g/dL RDW Std Deviation 52.8 H (36.4-46.3) fL RDW Coeff of Mathieu 16.9 H (11.5-14.5) % Plt Count 130 (130-400) K/uL MPV 9.3 L (9.4-12.4) fL Immature Gran % (Auto) 0.7 % Neut % (Auto) 90.6 % Lymph % (Auto) 0.7 % Spink % (Auto) 7.4 % Eos % (Auto) 0.3 % Baso % (Auto) 0.3 % Neut # (Auto) 6.95 H (1.40-6.50) K/uL Lymph # (Auto) 0.05 L (1.2-3.4) K/uL Spink # (Auto) 0.57 (0.11-0.59) K/uL Eos # (Auto) 0.02 (0-0.50) K/uL Baso # (Auto) 0.02 (0-0.2) K/uL Immature Gran # (Auto) 0.05 (0.01-0.20) K/uL PT 11.3 (9.0-12.0) Seconds INR 1.1 (0.9-1.1) APTT 33.6 H (21.0-31.0) Seconds PTT Ratio 1.2 VBG pH (7.36-7.41) VBG pCO2 (38-50) mmHg VBG pO2 mmHg VBG HCO3 mmol/L VBG O2 Saturation % VBG Base Excess mEq/L Sodium 129 L (136-145) mmol/L Potassium 4.3 (3.5-5.1) mmol/L Chloride 93 L (98-107) mmol/L Carbon Dioxide 26 (21-32) mmol/L Anion Gap 10 (3-11) BUN 19 (6-23) mg/dl Creatinine 0.86 (0.6-1.4) mg/dl Est Cr Clr Drug Dosing 70.4 ml/min Est GFR ( Amer) 107.7 ml/min Est GFR (Non-Af Amer) 92.9 ml/min BUN/Creatinine Ratio 22.1 H (10-20) Glucose 139 H (70-99(Fasting)) mg/dl Lactate (0.4-2.0) mmol/L Calcium 8.7 (8.6-10.3) mg/dl Magnesium 2.1 (1.7-2.4) mg/dl Total Bilirubin 0.8 (0.2-1.0) mg/dl Direct Bilirubin 0.2 (0-0.2) mg/dl AST 17 (13-39) U/L ALT 16 (7-52) U/L Alkaline Phosphatase 76 (34-104) U/L Ammonia (18-72) umol/L Troponin I High Sens 12.6 (0-20) pg/ml Total Protein 6.9 (6.0-8.3) gm/dl Albumin 3.6 (3.4-5.0) gm/dl Procalcitonin (0-0.5) ng/ml SARS-CoV-2, RNA, NAAT (NEGATIVE) 01/18/23 01/18/23 01/18/23 Range/Units 14:58 14:58 14:58 WBC (4.8-10.8) K/ul RBC (4.70-6.10) M/uL Hgb (14.0-18.0) g/dl Hct (42.0-52.0) % MCV (80.0-100.0) fL MCH (25.0-34.0) pg MCHC (32.0-36.0) g/dL RDW Std Deviation (36.4-46.3) fL RDW Coeff of Mathieu (11.5-14.5) % Plt Count (130-400) K/uL MPV (9.4-12.4) fL Immature Gran % (Auto) % Neut % (Auto) % Lymph % (Auto) % Spink % (Auto) % Eos % (Auto) % Baso % (Auto) % Neut # (Auto) (1.40-6.50) K/uL Lymph # (Auto) (1.2-3.4) K/uL Spink # (Auto) (0.11-0.59) K/uL Eos # (Auto) (0-0.50) K/uL Baso # (Auto) (0-0.2) K/uL Immature Gran # (Auto) (0.01-0.20) K/uL PT (9.0-12.0) Seconds INR (0.9-1.1) APTT (21.0-31.0) Seconds PTT Ratio VBG pH (7.36-7.41) VBG pCO2 (38-50) mmHg VBG pO2 mmHg VBG HCO3 mmol/L VBG O2 Saturation % VBG Base Excess mEq/L Sodium (136-145) mmol/L Potassium (3.5-5.1) mmol/L Chloride (98-107) mmol/L Carbon Dioxide (21-32) mmol/L Anion Gap (3-11) BUN (6-23) mg/dl Creatinine (0.6-1.4) mg/dl Est Cr Clr Drug Dosing ml/min Est GFR ( Amer) ml/min Est GFR (Non-Af Amer) ml/min BUN/Creatinine Ratio (10-20) Glucose (70-99(Fasting)) mg/dl Lactate 1.5 (0.4-2.0) mmol/L Calcium (8.6-10.3) mg/dl Magnesium (1.7-2.4) mg/dl Total Bilirubin (0.2-1.0) mg/dl Direct Bilirubin (0-0.2) mg/dl AST (13-39) U/L ALT (7-52) U/L Alkaline Phosphatase (34-104) U/L Ammonia 17.0 L (18-72) umol/L Troponin I High Sens (0-20) pg/ml Total Protein (6.0-8.3) gm/dl Albumin (3.4-5.0) gm/dl Procalcitonin 0.71 H (0-0.5) ng/ml SARS-CoV-2, RNA, NAAT (NEGATIVE) 01/18/23 01/18/23 Range/Units 15:13 16:49 WBC (4.8-10.8) K/ul RBC (4.70-6.10) M/uL Hgb (14.0-18.0) g/dl Hct (42.0-52.0) % MCV (80.0-100.0) fL MCH (25.0-34.0) pg MCHC (32.0-36.0) g/dL RDW Std Deviation (36.4-46.3) fL RDW Coeff of Mathieu (11.5-14.5) % Plt Count (130-400) K/uL MPV (9.4-12.4) fL Immature Gran % (Auto) % Neut % (Auto) % Lymph % (Auto) % Spink % (Auto) % Eos % (Auto) % Baso % (Auto) % Neut # (Auto) (1.40-6.50) K/uL Lymph # (Auto) (1.2-3.4) K/uL Spink # (Auto) (0.11-0.59) K/uL Eos # (Auto) (0-0.50) K/uL Baso # (Auto) (0-0.2) K/uL Immature Gran # (Auto) (0.01-0.20) K/uL PT (9.0-12.0) Seconds INR (0.9-1.1) APTT (21.0-31.0) Seconds PTT Ratio VBG pH 7.41 (7.36-7.41) VBG pCO2 41 (38-50) mmHg VBG pO2 17 mmHg VBG HCO3 26 mmol/L VBG O2 Saturation < 60.0 % VBG Base Excess 1.2 mEq/L Sodium (136-145) mmol/L Potassium (3.5-5.1) mmol/L Chloride (98-107) mmol/L Carbon Dioxide (21-32) mmol/L Anion Gap (3-11) BUN (6-23) mg/dl Creatinine (0.6-1.4) mg/dl Est Cr Clr Drug Dosing ml/min Est GFR ( Amer) ml/min Est GFR (Non-Af Amer) ml/min BUN/Creatinine Ratio (10-20) Glucose (70-99(Fasting)) mg/dl Lactate (0.4-2.0) mmol/L Calcium (8.6-10.3) mg/dl Magnesium (1.7-2.4) mg/dl Total Bilirubin (0.2-1.0) mg/dl Direct Bilirubin (0-0.2) mg/dl AST (13-39) U/L ALT (7-52) U/L Alkaline Phosphatase (34-104) U/L Ammonia (18-72) umol/L Troponin I High Sens (0-20) pg/ml Total Protein (6.0-8.3) gm/dl Albumin (3.4-5.0) gm/dl Procalcitonin (0-0.5) ng/ml SARS-CoV-2, RNA, NAAT NEGATIVE (NEGATIVE) Administered Medications Discontinued Medications Sodium Chloride (Nss 1000ml) 1,000 mls @ 999 mls/hr IV .Q1H1M ONE Stop: 01/18/23 15:44 Last Infusion: 01/18/23 16:29 Dose: 0 mls/hr Documented By: Admin: 01/18/23 15:12 Dose: 999 mls/hr Documented By: ANGELA Piperacillin Sod/Tazobactam Sod (Zosyn) 4.5 gm in 120 mls @ 240 mls/hr IV NOW ONE Stop: 01/18/23 16:40 Last Admin: 01/18/23 16:32 Dose: 240 mls/hr Documented By: VALENTIN Sodium Chloride (Nss 1000ml) 1,000 mls @ 999 mls/hr IV .Q1H1M ONE Stop: 01/18/23 17:15 Last Admin: 01/18/23 16:32 Dose: 999 mls/hr Documented By: VALENTIN Imaging Data Attestation: I personally reviewed and interpreted this imaging study as follows: My Impression: 1 view chest x-ray was obtained in the emergency department. My interpretation is left lower lobe infiltrate, no free air, final report below. Radiologist's Impression: Chest X-Ray 01/18/23 14:44 XR chest 1V portable CLINICAL HISTORY: Sepsis. Non-small cell lung cancer. COMPARISON STUDY: Chest radiograph December 16, 2022. PET/CT November 05, 2022. FINDINGS: Right internal jugular Myxgui-a-Kyti remains in place. There is no pneumothorax or pleural effusion. Left lower lung airspace opacity has developed since chest radiograph December 16, 2022. There is persistent left midlung opacity which could reflect a treated lesion. There may be minimal right basilar opacity. IMPRESSION: 1. Interval development of left lower lung airspace opacity with possible right basilar opacity. The findings favor an infectious process. 2. Persistent left midlung opacity which may reflect a treated lesion or p ostobstructive change. ACT 112: Negative or not required by law. Electronically signed by: Jace Call M.D. 01/18/2023 3:[address] 01/18/23 17:04 CT OF THE HEAD WITHOUT CONTRAST CLINICAL HISTORY: Confusion. COMPARISON STUDY: MRI of the brain October 14, 2022. TECHNIQUE: Helical axial images of the head were obtained without IV contrast. Automated exposure control was utilized for the study. A dose lowering technique was utilized adhering to the principles of ALARA. FINDINGS: No acute intracranial hemorrhage, midline shift or mass effect is present. The ventricular system is unremarkable. The basal cisterns are patent. No extra-axial collections are present. There are no findings to suggest acute dural sinus thrombosis or acute territorial infarct. No significant calvarial abnormalities are present. Visualized portions of the sinuses and mastoid air cells are clear. IMPRESSION: No acute intracranial findings. ACT 112: Negative or not required by law. Electronically signed by: Jace Call M.D. 01/18/2023 5:50 PM Discharge Plan Visit Data Chief Complaint: Confusion Stated Complaint: CONFUSED, POSSIBLE INFECTION, TIRED ED Provider: Jordan Segura Discharge Problem: Pneumonia, Cellulitis, Acute alteration in mental status Patient Disposition: Being Evaluated by Hospitalist Prescriptions Prescriptions: No Action prochlorperazine maleate [Compazine] 10 mg tablet 10 mg PO Q6H PRN (Reason: Nausea) oxycodone 5 mg capsule 5 - 10 mg PO UD PRN (Reason: Pain) benzonatate 100 mg capsule 100 mg PO TID PRN (Reason: cough) ipratropium-albuterol 0.5 mg-3 mg(2.5 mg base)/3 mL solution for nebulization 3 ml inhalation Q8H Patient Comments: NOT CURRENT USING/ON BACK ORDER albuterol sulfate 90 mcg/actuation HFA aerosol inhaler 2 puff inhalation Q6H PRN (Reason: sob) sucralfate [Carafate] 100 mg/mL suspension 10 ml PO QID Qty: 420 3RF Rx Instructions: Take 1 hour before meals and bedtime. silver sulfadiazine [Silvadene] 1 % cream 1 applic topical BID Qty: 85 1RF Rx Instructions: apply a 1.5 mm thickness tamsulosin 0.4 mg Capsule 0.4 mg PO QAM docusate sodium [Stool Softener] 100 mg Tablet 100 mg PO BID Probiotic 3 billion cell Capsule 3,000 mmu cells PO QAM Rx Instructions: administer with a meal Magic Mouthwash 300 mL mouthwash 10 ml mucous membrane UD PRN (Reason: dysphagia) famotidine [Pepcid] 20 mg Tablet 10 mg PO BID loratadine [Claritin] 10 mg Tablet 10 mg PO QAM montelukast 10 mg Tablet 10 mg PO UD Patient Comments: DAY BEFORE AND MORNING OF CHEMO THERAPY AND I THINK I TAKE ONE THE DAY AFTER CHEMO dexamethasone 4 mg tablet 20 mg PO 2XWK Patient Comments: TAKE IT BEFORE CHEMO
[2023-01-18 15:17] LABS: Base Excess VBG 1.2 mEq/L; HCO3 VBG 26 mmol/L; Oxygen Saturation VBG < 60.0 %; PCO2 VBG 41 mmHg (38-50); PO2 VBG 17 mmHg; pH VBG 7.41 (7.36-7.41)
[2023-01-18 15:32] LABS: Hematocrit (blood only) 33.2 % (42.0-52.0); Mean Corpuscular Hgb Conc 33.1 g/dL (32.0-36.0); Mean Corpuscular Volume 87.6 fL (80.0-100.0); Mean Platelet Volume 9.3 fL (9.4-12.4); Platelet Count 130 K/uL (130-400); RDW Coefficient of Variation 16.9 % (11.5-14.5); RDW Standard Deviation 52.8 fL (36.4-46.3); Red Blood Count 3.79 M/uL (4.70-6.10); White Blood Count 7.66 K/ul (4.8-10.8)
[2023-01-18 15:51] LABS: Albumin Level 3.6 gm/dl (3.4-5.0); BUN Creatinine Ratio 22.1 (10-20); Bilirubin Direct 0.2 mg/dl (0-0.2); Bilirubin,Total 0.8 mg/dl (0.2-1.0); Calcium 8.7 mg/dl (8.6-10.3); Creatinine Clr Calc Pharmacy 70.4 ml/min; Est GFR (African American) 107.7 ml/min; Est GFR (Non-African American) 92.9 ml/min; Magnesium 2.1 mg/dl (1.7-2.4); Potassium 4.3 mmol/L (3.5-5.1); Total Protein 6.9 gm/dl (6.0-8.3)
--- NOTE | 2023-01-18 15:53 | XRay Report ---
XR chest 1V portable CLINICAL HISTORY: Sepsis. Non-small cell lung cancer. COMPARISON STUDY: Chest radiograph December 16, 2022. PET/CT November 05, 2022. FINDINGS: Right internal jugular Voeyvs-l-Hrhr remains in place. There is no pneumothorax or pleural effusion. Left lower lung airspace opacity has developed since chest radiograph December 16, 2022. There is persistent left midlung opacity which could reflect a treated lesion. There may be minimal right b asilar opacity. IMPRESSION: 1. Interval development of left lower lung airspace opacity with possible right basilar opacity. The findings favor an infectious process. 2. Persistent left midlung opacity which may reflect a treated lesion or postobstructive change. ACT 112: Negative or not required by law. Electronically signed by: Jace Call M.D. 01/18/2023 3:51 PM
[2023-01-18 15:57] LABS: Troponin I High Sensitivity 12.6 pg/ml (0-20)
[2023-01-18 16:03] LABS: Basophils # (auto) 0.02 K/uL (0-0.2); Basophils % (auto) 0.3 %; Eosinophils # (auto) 0.02 K/uL (0-0.50); Eosinophils % (auto) 0.3 %; Immature Granulocytes # (auto) 0.05 K/uL (0.01-0.20); Immature Granulocytes % (auto) 0.7 %; Lymphocytes # (auto) 0.05 K/uL (1.2-3.4); Lymphocytes % (auto) 0.7 %; Monocytes # (auto) 0.57 K/uL (0.11-0.59); Monocytes % (auto) 7.4 %; Neutrophils # (auto) 6.95 K/uL (1.40-6.50); Neutrophils % (auto) 90.6 %
[2023-01-18 16:06] LABS: INR 1.1 (0.9-1.1); Partial Thromboplastin Ratio 1.2; Partial Thromboplastin Time 33.6 Seconds (21.0-31.0); Prothrombin Time 11.3 Seconds (9.0-12.0)
[2023-01-18] MEDS ORDERED: PIPERACILLIN/TAZOBACTAM 4.5 GM/120 ML BAG IV ONE (16:11)
[2023-01-18] MEDS ORDERED: ONDANSETRON INJ 2 MG/ML 2 ML VIAL IV PRN (17:04)
[2023-01-18] MEDS ORDERED: ACETAMINOPHEN 325 MG TAB PO PRN (17:04)
--- NOTE | 2023-01-18 17:19 | Electrocardiogram Report ---
Test Reason : Blood Pressure : / mmHG Vent. Rate : 114 BPM Atrial Rate : 114 BPM P-R Int : 128 ms QRS Dur : 082 ms QT Int : 302 ms P-R-T Axes : 056 074 060 degrees QTc Int : 416 ms Sinus tachycardia Otherwise normal ECG When compared with ECG of 16-DEC-2022 20:07, HR has increased by 25 bpm Otherwise no significant change Confirmed by Messi Og ([id number]) on 01/18/2023 5:18:42 PM Referred By: REFERRED SELF Confirmed By:Messi Og
--- NOTE | 2023-01-18 17:42 | History & Physical Report ---
Date of Service January 18, 2023 Assessment & Plan (1) Pneumonia: Plan: 62-year-old male with history of recently diagnosed lung cancer, status postchemotherapy and radiation therapy, History of smoking, etc. presenting with cough times few days, and episode of confusion/hallucination today. BILATERAL LOWER LOBE PNEUMONIA LUNG CANCER, STATUS POSTCHEMOTHERAPY AND RADIATION CT chest: Pending Sputum culture, blood cultures ordered Nasal MRSA ordered Start Zosyn plus doxycycline IV Nebs every 6 hours RADIATION DERMATITIS Possible mild infection Doxycycline 100 mg p.o. twice daily Wound care consult ORAL CANDIDIASIS Nystatin HYPOTENSION Secondary to poor intake Continue IV fluids Has been on Decadron for chemo, and prednisone taper recently Check cortisol in a.m. If hypotensive overnight, may benefit from stress dose hydrocortisone EPISODES OF HALLUCINATIONS, CONFUSION? Check CT head DVT prophylaxis will need to heparin subcu Disposition Lives at home with family plan of care discussed with patient and his significant other at the bedside in detail and at length all questions answered they are understanding, agreeable, comfortable with the plan of care History of Present Illness Chief Complaint: Cough Primary Care Provider: Wood Genao MD 62-year-old male with history of recently diagnosed lung cancer, status postchemotherapy and radiation therapy, History of smoking, etc. Presenting with cough times few days, and episode of confusion/hallucination today. Patient follows with [facility] oncology service and has completed chemotherapy and radiation therapy last week. Patient reports he has been having productive cough for the past few days, associated with some chills But no shortness of breath, chest pain. He also has pain with swallowing which he attributes to radiation. At the ER, patient was noted to have blood pressure on the lower side, and tachycardia. Chest x-ray showing bilateral lower lobe infiltrates. He was given IV NSS and IV Zosyn at the ER. On exam, patient seen sitting up in bed, not in distress, alert, oriented x3, answers all questions appropriately. Denies active shortness of breath, chest pain, palpitations, dizziness Patient reports having episodes of hallucinations-seeing mice crawling on the floor. He takes oxycodone for chronic pain but has been taking this evening for hallucinations started. No other new symptom Allergies Allergy/AdvReac Type Severity Reaction Status Date / Time No Known Allergies Allergy Verified 12/29/22 07:57 Home Medications Medication Instructions Recorded Confirmed Type albuterol sulfate 90 mcg/actuation 2 puff inhalation Q6H PRN sob 10/29/22 01/05/23 History aerosol inhaler ipratropium 0.5 mg-albuterol 3 mg 3 ml inhalation Q8H wheezing 10/29/22 01/05/23 History (2.5 mg base)/3 mL nebulization soln tamsulosin 0.4 mg capsule 0.4 mg PO QAM 11/19/22 01/05/23 History prochlorperazine maleate 10 mg 10 mg PO Q6H PRN Nausea 12/08/22 01/05/23 History tablet (Compazine) oxycodone 5 mg capsule 5 - 10 mg PO UD PRN Pain 12/15/22 01/05/23 History dexamethasone 4 mg tablet 20 mg PO 2XWK 12/16/22 01/05/23 History benzonatate 100 mg capsule 100 mg PO TID PRN cough 12/22/22 01/05/23 History Magic Mouthwash 300 mL mouthwash 10 ml mucous membrane UD PRN 12/24/22 01/05/23 History dysphagia docusate sodium 100 mg tablet 100 mg PO BID 12/24/22 01/05/23 History (Stool Softener) famotidine 20 mg tablet (Pepcid) 10 mg PO BID 12/24/22 01/05/23 History lactobacillus combination no.4 3 3,000 mmu cells PO QAM 12/24/22 01/05/23 History billion cell capsule (Probiotic) loratadine 10 mg tablet (Claritin) 10 mg PO QAM 12/24/22 01/05/23 History montelukast 10 mg tablet 10 mg PO UD 12/24/22 01/05/23 History sucralfate 100 mg/mL oral 10 ml PO QID #420 mL 01/07/23 01/12/23 Rx suspension (Carafate) silver sulfadiazine 1 % topical 1 applic topical BID #85 grams 01/12/23 Rx cream (Silvadene) Past Med/Surg History Medical History Chemotherapy adverse reaction LAST WEEK: BLOOD PRESSURE DECREASED/ REQUIRING 1 NIGHT HOSPITAL STAY FOR OBSERVATION, [facility] DM type 2 (diabetes mellitus, type 2) Ex-smoker Frequent urination ONGOING ISSUE Hepatitis C Active History of chest pain RECENT DX LUNG CA...TESTING...C/P SUSPECTED TO BE DUE TO TUMOR LOCATION AT LUNG ENTRY - WANTED TO PLACE A STENT/UNABLE TO STENT History of fracture of orbit HX RIGHT ORBITAL FX...SX/TITANIUM IMPLANT History of fractured vertebra History of influenza OCT 2022 History of vascular access device CURRENT/ PT REPORTS BELIEVES HIS IS NON POWER Lung cancer Dx'd 10/14/2022/CURRENTLY CHEMO AND RADIATION Osteoporosis Ruptured intervertebral disc hx Surgical History H/O eye surgery 1996 H/O knee surgery 1999 History of bronchoscopy History of tonsillectomy and adenoidectomy 1972 Port-A-Cath in place (11/25/22) Insertion Access Port with Fluoroscopy Right Internal Jugular Vein(Right) - Colin Hernandez DO PT REPORTS HE THINKS HIS IS A NON POWER PORT Family History Brother Stomach cancer Grandfather (Maternal) Prostate cancer Grandfather (Paternal) Colon cancer Father Heart disease Grandfather Stroke Social History Smoking Status: Never smoker Tobacco Type: Cigarettes packs per day: 1.5; Second Hand Exposure: No; Hx Alcohol Use: Yes Alcohol type: beer Alcohol Intake Frequency: 4 or More x per/Week Hx Substance Use: No Preferred Language: Amharic Communication Ability: Effective Visual Impairment: No Limitations Hearing Ability: Normal Back Up Worker Required: No Beliefs That Will Affect Care: None Current Living Situation: Other 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 current occupational status: disabled Feels Safe at Home: Yes during the past year weight has: decreased > 10 lbs Assistive Devices: None Review of Systems Review of Systems: all noted and negative except for above Physical Exam Physical Exam: General- oriented x 3, not in distress, speaks in sentences with no effort or accessory muscle use Head- atraumatic Eyes- PERRL, EOMI, anicteric ENT- oropharynx clear Positive oral thrush Neck- supple, no JVD, no adenopathy, no thyromegaly; carotids +2/2, no bruits appreciated Lungs-positive left upper chest wall: Area of erythema with white discharge discharge-cream? Positive mild to moderate rhonchi bilaterally, with intermittent wheezing Good air entry bilaterally Positive port on the right upper chest wall Heart- normal rate, regular rhythm; no murmur, no gallop, no rub appreciated Abdomen- normal bowel sounds, nondistended, soft, nontender, no masses or hepatosplenomegaly Extremities- no pretibial edema, no calf tenderness; peripheral pulses intact Neuro- alert, oriented x 3; CN 2-12 grossly intact; motor 5/5 bilaterally;sensation 100% on all extremities; no other gross focal neurologic deficits Skin- warm & dry Results & Data Results & Data Vital Signs (Past 12 Hours) Vital Signs Temp Pulse Pulse Resp BP BP Pulse Ox 01/18/23 14:44 112 H 14 111/79 97 01/18/23 14:44 98 01/18/23 14:57 115 H 01/18/23 14:35 37.2 C 121 H 18 97/68 L 98 O2 Del Method 01/18/23 14:44 01/18/23 14:44 01/18/23 14:57 01/18/23 14:35 Room Air all noted and reviewed including below Code Status & VTE Plan VTE Prophylaxis Plan VTE Prophylaxis will be ordered: Yes
--- NOTE | 2023-01-18 17:52 | CT Scan Report ---
CT OF THE HEAD WITHOUT CONTRAST CLINICAL HISTORY: Confusion. COMPARISON STUDY: MRI of the brain October 14, 2022. TECHNIQUE: Helical axial images of the head were obtained without IV contrast. Automated exposure con trol was utilized for the study. A dose lowering technique was utilized adhering to the principles o f ALARA. FINDINGS: No acute intracranial hemorrhage, midline shift or mass effect is present. The ventricular system is unremarkable. The basal cisterns are patent. No extra-axial collections are present. There are no findings to suggest acute dural sinus thrombosis or acute territorial infarct. No significant calvarial abnormalities are present. Visualized portions of the sinuses and mastoid air cells are stacia ar. IMPRESSION: No acute intracranial findings. ACT 112: Negative or not required by law. Electronically signed by: Jace Call M.D. 01/18/2023 5:50 PM
--- NOTE | 2023-01-18 18:16 | CT Scan Report ---
CT OF THE CHEST WITHOUT IV CONTRAST CLINICAL HISTORY: Evaluate for pneumonia, effusion. Non-small cell lung cancer. COMPARISON STUDY: Treatment planning CT December 08, 2022 and PET/CT November 05, 2022. Chest radiogr aph performed earlier today. CT DOSE: 1010.83 mGy.cm TECHNIQUE: Axial images of the chest were obtained without IV contrast. Images were reviewed in the axial, sagittal, and coronal planes. IV contrast was not administered for this examination. Automat ed exposure control was utilized for the study. A dose lowering technique was utilized adhering to t he principles of ALARA. FINDINGS: No pathologically enlarged thoracic lymph nodes are present. Prominent AP window lymph nod es have slightly decreased in size since PET/CT of November 05, 2022. The size of the heart is normal. There is no pericardial effusion. A right internal jugular [id number] is in place. There is no pn eumothorax or pleural effusion. Extensive tree-in-bud nodules within the left lower lobe are noted. T here are also tree-in-bud nodules within the lingula. Significant bronchial wall thickening is greate r within the left lung. This also involves the left mainstem bronchus. Note is made of a cavitary foc us within the left upper lobe which communicates within the left upper lobe bronchus. This measures 6 .2 x 2.8 cm. This has decreased since treatment planning CT of December 08, 2022. Multifocal mucus pl ugging is present. There are minimal tree-in-bud nodules within the right lung. No suspicious lesions within the bony thorax are present. Punctate right renal calculus is incidentally noted. Upper abdom en is otherwise unremarkable. IMPRESSION: 1. Multifocal tree-in-bud nodules, most pronounced within the left lower lobe. Associated bronchial w all thickening and mucus plugging. The findings suggest an infectious process such as bronchiolitis/b ronchopneumonia. 2. 6.2 x 2.8 cm cavitary left upper lobe focus which communicates with the left upper lobe bronchus. This has decreased in size since treatment planning CT of December 08, 2022 and may represent the pat da neoplasm. Continued imaging follow-up is recommended to exclude residual viable tumor. 3. No pleural effusion. No pneumothorax. ACT 112: Negative or not required by law. Electronically signed by: Jace Call M.D. 01/18/2023 6:14 PM
--- NOTE | 2023-01-18 18:28 | XRay Report ---
XR foot LT 2V CLINICAL HISTORY: Left heel pain. COMPARISON: Left tibia and fibula radiographs August 22, 2019. FINDINGS: No fracture within the left foot is identified. Calcaneus is intact. No osseous lesion. 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 IMPRESSION: No left foot fracture. No calcaneal abnormality. ACT 112: Negative or not required by law. Electronically signed by: Jace Call M.D. 01/18/2023 6:27 PM
[2023-01-18] MEDS: SODIUM CHLORIDE 0.9% 1000ML 1,000 ML IV ONE ×2 (18:40→20:23)
[2023-01-18] MEDS: SODIUM CHLORIDE 0.9% 1000ML 1,000 ML IV SCH (18:44)
[2023-01-18] MEDS ORDERED: XOPENEX/ATROVENT 1.25mg/0.5MG NEB COMBO NEB SCH (19:00)
[2023-01-18] MEDS: DOXYCYCLINE HYCLATE 100 MG in DEXTROSE 5% 100 ML IV SCH (19:36)
[2023-01-18] MEDS: IPRATROPIUM BROMIDE NEB SOLN 0.02% 2.5 ML VIAL INH SCH (19:42)
[2023-01-18] MEDS: LEVALBUTEROL 1.25MG/0.5ML NEB INH SCH (19:42)
[2023-01-18] MEDS: NYSTATIN SUSP 500,000 U/5 ML UDC PO SCH (22:18)
[2023-01-18] MEDS: PIPERACILLIN/TAZOBACTAM 4.5 GM in DEXTROSE 5% 100 ML IV SCH (22:18)
[2023-01-18] MEDS: oxyCODONE HCL IR 5 MG TAB (IMMEDIATE RELEASE) PO PRN (23:32)
[2023-01-19] MEDS: LEVALBUTEROL 1.25MG/0.5ML NEB INH SCH ×4 (00:33→19:52)
[2023-01-19] MEDS: IPRATROPIUM BROMIDE NEB SOLN 0.02% 2.5 ML VIAL INH SCH ×4 (00:33→19:52)
[2023-01-19] MEDS: SODIUM CHLORIDE 0.9% 1000ML 1,000 ML IV SCH ×3 (03:00→22:36)
[2023-01-19] MEDS: PIPERACILLIN/TAZOBACTAM 4.5 GM in DEXTROSE 5% 100 ML IV SCH (05:05)
[2023-01-19 06:32] LABS: Basophils # (auto) 0.01 K/uL (0-0.2); Basophils % (auto) 0.2 %; Eosinophils # (auto) 0.01 K/uL (0-0.50); Eosinophils % (auto) 0.2 %; Hematocrit (blood only) 25.9 % (42.0-52.0); Hemoglobin 8.6 g/dl (14.0-18.0); Immature Granulocytes # (auto) 0.03 K/uL (0.01-0.20); Immature Granulocytes % (auto) 0.7 %; Lymphocytes # (auto) 0.07 K/uL (1.2-3.4); Lymphocytes % (auto) 1.7 %; Mean Corpuscular Hgb Conc 33.2 g/dL (32.0-36.0); Mean Corpuscular Volume 87.2 fL (80.0-100.0); Monocytes # (auto) 0.51 K/uL (0.11-0.59); Monocytes % (auto) 12.3 %; Neutrophils # (auto) 3.53 K/uL (1.40-6.50); Neutrophils % (auto) 84.9 %; Platelet Count 107 K/uL (130-400); RDW Coefficient of Variation 16.7 % (11.5-14.5); RDW Standard Deviation 51.7 fL (36.4-46.3); Red Blood Count 2.97 M/uL (4.70-6.10); White Blood Count 4.16 K/ul (4.8-10.8)
[2023-01-19 06:50] LABS: Appearance Urine Clear (Clear); Bilirubin Urine Negative (Negative); Blood Urine Negative (Negative); Color Urine Yellow; Glucose Urine UA Negative (Negative); Ketones Urine Negative (Negative); Leukocyte Esterase Urine Negative (Negative); Nitrite Urine Negative (Negative); Protein Urine Negative (Negative); Specific Gravity Urine <= 1.005 (1.000-1.030); Urobilinogen Urine Negative (Negative); pH Urine 5.5 (4.5-7.5)
[2023-01-19 07:09] LABS: BUN Creatinine Ratio 25.5 (10-20); Calcium 7.9 mg/dl (8.6-10.3); Creatinine Clr Calc Pharmacy 125.6 ml/min; Est GFR (African American) 138.1 ml/min; Est GFR (Non-African American) 119.1 ml/min; Potassium 3.8 mmol/L (3.5-5.1)
[2023-01-19 08:45] LABS: A calco-baum cmplx NotReported Not Detected (NotDetected); Bact fragilis Not Reported Not Detected (NotDetected); C auris Not Reported Not Detected (NotDetected); Calbicans Not Reported Not Detected (NotDetected); Candida glabrata Not Reported Not Detected (NotDetected); Candida krusei Not Reported Not Detected (NotDetected); Cneoformans/gatti Not Reported Not Detected (NotDetected); Cparapsilosis Not Reported Not Detected (NotDetected); Ctropicalis Not Reported Not Detected (NotDetected); E cloacae compx Not Reported Not Detected (NotDetected); Efaecalis Not Reported Not Detected (NotDetected); Efaecium Not Reported Not Detected (NotDetected); Enterobacterales Not Reported Not Detected (NotDetected); Escherichia coli Not Reported Not Detected (NotDetected); H influenzae Not Reported Not Detected (NotDetected); K aerogenes Not Reported Not Detected (NotDetected); Koxytoca Not Reported Not Detected (NotDetected); Kpneumoniae grp Not Reported Not Detected (NotDetected); Lmonocyt Not Reported Not Detected (NotDetected); N meningitidis Not Reported Not Detected (NotDetected); P aeruginosa Not Reported Not Detected (NotDetected); Proteus spp Not Reported Not Detected (NotDetected); Salmonella spp Not Reported Not Detected (NotDetected); Smarcescens Not Reported Not Detected (NotDetected); Staph lugdunensis Not Reported Not Detected (NotDetected); Staph spp. Not Reported DETECTED (NotDetected); Staphaureus Not Reported DETECTED (NotDetected); Staphepi Not Reported Not Detected (NotDetected); Staphylococcus spp. DETECTED (NotDetected); Stenmaltophilia Not Reported Not Detected (NotDetected); Strep agal(GrpB) Not Reported Not Detected (NotDetected); Strep pneum Not Reported Not Detected (NotDetected); Strep pyog (GrpA) Not Reported Not Detected (NotDetected); Strep spp Not Reported Not Detected (NotDetected)
[2023-01-19] MEDS: SODIUM CHLOR 7% 4 ML NEB NEB SCH ×2 (08:51→19:52)
[2023-01-19 08:54] LABS: mecAC+MREJ Resistant Gene MRSA DETECTED (NotDetected)
[2023-01-19] MEDS ORDERED: VANCOMYCIN CONSULT ACTIVE PRN (09:04)
[2023-01-19] MEDS: NYSTATIN SUSP 500,000 U/5 ML UDC PO SCH ×4 (09:06→20:32)
[2023-01-19] MEDS: DOXYCYCLINE HYCLATE 100 MG in DEXTROSE 5% 100 ML IV SCH (09:14)
[2023-01-19] MEDS: CEFEPIME 2,000 MG in SYRINGE 0 ML IV SCH ×2 (09:21→17:36)
[2023-01-19] MEDS ORDERED: VANCOMYCIN HCL 1,250 MG in SODIUM CHLORIDE 0.9% 250 ML IV ONE (09:30)
[2023-01-19] MEDS: oxyCODONE HCL IR 5 MG TAB (IMMEDIATE RELEASE) PO PRN ×3 (10:36→23:49)
--- NOTE | 2023-01-19 11:27 | Pharmacy Report ---
Pharmacy Vanc AUC Short Note - Date of Service January 19, 2023 - Assessment & Plan Assessment 62 year old M receiving VANCOMYCIN/CEFEPIME for treatment of BACTEREMIA AND PNEUMONIA. Pertinent microbiologic data includes: Positive MRSA Nasal Swab BLOOD culture growing MRSA. Day # 1/? of antimicrobial therapy. Plan Vancomycin * AUC/EFRA is the preferred PK/PD target for vancomycin * AUC guided dosing is effective and associated with decreased risk of nephrotoxicity compared to traditional trough targets * Vancomycin 1000 mg IV every 8 hours * Trough level ordered for: 01/19/23 prior to 10 am dose Pharmacy will continue to follow and will adjust dose/frequency as necessary. Thank you.
[2023-01-19] MEDS: VANCOMYCIN HCL 1,000 MG in SODIUM CHLORIDE 0.9% 250 ML IV SCH (17:36)
--- NOTE | 2023-01-19 17:36 | Hospitalist Progress Note ---
Date of Service January 19, 2023 Assessment & Plan (1) Pneumonia: Plan: 62-year-old male with history of recently diagnosed lung cancer, status postchemotherapy and radiation therapy, History of smoking, etc. presenting with cough times few days, and episode of confusion/hallucination today. BILATERAL LOWER LOBE PNEUMONIA LUNG CANCER, STATUS POSTCHEMOTHERAPY AND RADIATION CT chest: 1. Multifocal tree-in-bud nodules, most pronounced within the left lower lobe. Associated bronchial wall thickening and mucus plugging. The findings suggest an infectious process such as bronchiolitis/bronchopneumonia. 2. 6.2 x 2.8 cm cavitary left upper lobe focus which communicates with the left upper lobe bronchus. This has decreased in size since treatment planning CT of December 08, 2022 and may represent the primary neoplasm. Continued imaging follow-up is recommended to exclude residual viable tumor. 3. No pleural effusion. No pneumothorax. Sputum culture: Pending Nasal MRSA: Positive Transition antibiotics to vancomycin plus cefepime Continue Xopenex/Atrovent every 6 hours Hypertonic saline nebs twice daily MRSA BACTEREMIA PRESENCE OF RIGHT SUBCLAVIAN CENTRAL LINE, PORT Blood cultures: Positive for MRSA including from specimen obtained from port Repeat blood cultures tomorrow We will consult infectious disease service We will likely need removal of right central line/port RADIATION DERMATITIS Possible mild infection On vancomycin IV Wound care consulted ORAL CANDIDIASIS Nystatin HYPOTENSION Secondary to poor intake Continue IV fluids Has been on Decadron for chemo, and prednisone taper recently Check cortisol in a.m. If hypotensive overnight, may benefit from stress dose hydrocortisone EPISODES OF HALLUCINATIONS, CONFUSION? Check CT head: No acute process DVT prophylaxis will need to heparin subcu Disposition Lives at home with family plan of care discussed with patient at the bedside in detail and at length all questions answered they are understanding, agreeable, comfortable with the plan of care Admission and Anticipated Discharge Date Admission Date: January 18, 2023 Subjective Follow-up for pneumonia, etc. Seen resting in bed, comfortable, not in distress On room air States he feels somewhat better compared to yesterday Still having productive cough, able to expectorate more phlegm today Breathing is improving Still having some sore throat, pain with swallowing No fevers or chills No abdominal pain, nausea vomiting, no other symptoms Review of Systems Review of Systems: all noted and negative except for above Physical Exam 2 Physical Exam: General- oriented x 3, not in distress, speaks in sentences with no effort or accessory muscle use Eyes- anicteric Neck- no JVD Lungs-positive mild rales at the left base, clear on the right Positive port on the right upper chest wall Heart- normal rate, regular rhythm; no murmurs Abdomen- normal bowel sounds, nondistended, soft, nontender Extremities- no pretibial edema, no calf tenderness Neuro- alert, oriented x 3; no gross focal neurologic deficits Skin- warm & dry Results & Data Results & Data Vital Signs (Past 12 Hours) Vital Signs Temp Pulse Pulse Resp BP Pulse Ox O2 Del Method 01/19/23 16:44 36.7 C 93 H 20 99/61 L 100 Room Air 01/19/23 15:40 92 H 01/19/23 12:42 100 H 18 97 Room Air 01/19/23 09:00 Room Air 01/19/23 11:29 36.4 C L 94 H 20 93/56 L 99 Room Air 01/19/23 08:43 80 16 Room Air 01/19/23 07:46 83 01/19/23 07:39 36.4 C L 73 20 97/59 L 100 Room Air all noted and reviewed including below (1) Pneumonia Laterality: bilateral Lung location: unspecified part of lung Pneumonia type: due to unspecified organism Qualified Code(s): J18.9 - Pneumonia, unspecified organism
[2023-01-19] MEDS ORDERED: FIRST - Mouthwash BLM 119 ML PO PRN (18:15)
[2023-01-19] MEDS ORDERED: DOXYCYCLINE HYCLATE 100 MG in DEXTROSE 5% 100 ML IV SCH (19:00)
[2023-01-19] MEDS: MONTELUKAST SODIUM 10 MG TABLET PO SCH (20:32)
[2023-01-19] MEDS: SUCRALFATE 1 GM/10 ML UDC PO SCH (20:32)
[2023-01-19] MEDS: FAMOTIDINE 10 MG TABLET PO SCH (20:32)
[2023-01-19] MEDS: DOCUSATE SODIUM 100 MG CAP PO SCH (20:32)
[2023-01-19] MEDS ORDERED: SILVER SULFADIAZINE 1% CR 50 GM JAR TOP SCH (21:00)
[2023-01-19] MEDS: BACITRACIN OINT 15 GM TUBE EXT SCH (21:30)
[2023-01-20] MEDS: LEVALBUTEROL 1.25MG/0.5ML NEB INH SCH ×4 (00:03→19:33)
[2023-01-20] MEDS: IPRATROPIUM BROMIDE NEB SOLN 0.02% 2.5 ML VIAL INH SCH ×4 (00:04→19:33)
[2023-01-20] MEDS: CEFEPIME 2,000 MG in SYRINGE 0 ML IV SCH ×3 (02:02→17:22)
[2023-01-20] MEDS: VANCOMYCIN HCL 1,000 MG in SODIUM CHLORIDE 0.9% 250 ML IV SCH ×3 (02:02→17:22)
[2023-01-20 06:30] LABS: Basophils # (auto) 0.01 K/uL (0-0.2); Basophils % (auto) 0.2 %; Eosinophils # (auto) 0.04 K/uL (0-0.50); Eosinophils % (auto) 0.9 %; Hemoglobin 8.2 g/dl (14.0-18.0); Immature Granulocytes # (auto) 0.02 K/uL (0.01-0.20); Immature Granulocytes % (auto) 0.5 %; Lymphocytes # (auto) 0.12 K/uL (1.2-3.4); Lymphocytes % (auto) 2.8 %; Mean Corpuscular Hemoglobin 28.8 pg (25.0-34.0); Mean Corpuscular Hgb Conc 32.8 g/dL (32.0-36.0); Mean Corpuscular Volume 87.7 fL (80.0-100.0); Mean Platelet Volume 9.6 fL (9.4-12.4); Monocytes # (auto) 0.49 K/uL (0.11-0.59); Monocytes % (auto) 11.6 %; Neutrophils # (auto) 3.55 K/uL (1.40-6.50); Platelet Count 104 K/uL (130-400); RDW Coefficient of Variation 16.6 % (11.5-14.5); RDW Standard Deviation 52.4 fL (36.4-46.3); Red Blood Count 2.85 M/uL (4.70-6.10); White Blood Count 4.23 K/ul (4.8-10.8)
[2023-01-20 06:33] LABS: BUN Creatinine Ratio 21.1 (10-20); Calcium 7.6 mg/dl (8.6-10.3); Creatinine Clr Calc Pharmacy 111.9 ml/min; Est GFR (African American) 127.6 ml/min; Est GFR (Non-African American) 110.1 ml/min
[2023-01-20] MEDS: SODIUM CHLOR 7% 4 ML NEB NEB SCH ×2 (06:52→19:33)
[2023-01-20] MEDS: NYSTATIN SUSP 500,000 U/5 ML UDC PO SCH ×4 (08:20→19:59)
[2023-01-20] MEDS: SUCRALFATE 1 GM/10 ML UDC PO SCH ×4 (08:20→19:59)
[2023-01-20] MEDS: BACITRACIN OINT 15 GM TUBE EXT SCH ×2 (08:20→20:31)
[2023-01-20] MEDS: DOCUSATE SODIUM 100 MG CAP PO SCH ×2 (08:21→19:59)
[2023-01-20] MEDS: ADVANCED PROBIOTIC 1250 MG CAPSULE PO SCH (08:22)
[2023-01-20] MEDS: FAMOTIDINE 10 MG TABLET PO SCH ×2 (08:22→19:59)
[2023-01-20] MEDS: oxyCODONE HCL IR 5 MG TAB (IMMEDIATE RELEASE) PO PRN ×2 (08:28→16:12)
[2023-01-20 09:30] LABS: Cortisol AM 13.73 mcg/dl (6.2-22.6)
[2023-01-20] MEDS ORDERED: VANCOMYCIN LEVEL ONE (09:30)
[2023-01-20] MEDS: guaiFENesin 600 MG TABCR PO SCH ×2 (09:32→19:59)
[2023-01-20] MEDS: SODIUM CHLORIDE 0.9% 1000ML 1,000 ML IV SCH (09:32)
--- NOTE | 2023-01-20 10:13 | Pharmacy Report ---
Pharmacy PK ABX Note - Date of Service January 20, 2023 - Assessment and Plan Assessment 62 year old M receiving vancomycin/cefepime for treatment of bacteremia/pneumonia. Pertinent microbiologic data includes: Positive MRSA Nasal Swab, blood, sputum, and chest culture growing MRSA. Currently, EFRA reported as 2 - lab preforming dilution to establish EFRA. Day # 2 of antimicrobial therapy. Plan Vancomycin * Maintenance dose: 1000 mg IV every 8 hours * Regimen is predicted to achieve target AUC/EFRA of 400-600 mg/L.hr - discussed patient with provider due to extent of infection + EFRA. Patient is improving. Will continue current regimen and await EFRA information from lab. * Trough level ordered for: 01/20/23 Pharmacy will continue to follow and will adjust dose/frequency as necessary. Thank you. Pharmacy has transitioned to AUC monitoring for vancomycin. AUC/EFRA is the preferred PK/PD target and is associated with decreased risk of nephrotoxicity compared to traditional trough targets.
--- NOTE | 2023-01-20 15:32 | Surgery Consultation ---
Date of Consultation January 20, 2023 Assessment & Plan (1) Infected venous access port: pt is a 62 year-old male who was admitted to hospital for cough, new diagnosis- lung cancer, pt had Blood culture positive for Staphylococcus species. I was asked for consult for remove port-catheter. IMP: infected port-catheter, Plan, I recommend to remove the port-catheter under sedation + local, D/W benefits, risks and alternatives of the surgery, the risks - infection, bleeding, blood clot,pt understood, he agreed with the surgery, he signed informed consent, I answered all questions, pt had lunch today, NPO after MN, will remove the port-catheter tomorrow, History of Present Illness Reason for Consultation: infected port-catheter Requesting Physician: Ezekiel Brown MD Attending Physician: Ezekiel Brown MD History of Present Illness Chief Complaint: Cough Primary Care Provider: Wood Genao MD 62-year-old male with history of recently diagnosed lung cancer, status postchemotherapy and radiation therapy, History of smoking, etc. Presenting with cough times few days, and episode of confusion/hallucination today. Patient follows with [facility] oncology service and has completed chemotherapy and radiation therapy last week. Patient reports he has been having productive cough for the past few days, associated with some chills But no shortness of breath, chest pain. He also has pain with swallowing which he attributes to radiation. At the ER, patient was noted to have blood pressure on the lower side, and tachycardia. Chest x-ray showing bilateral lower lobe infiltrates. He was given IV NSS and IV Zosyn at the ER. On exam, patient seen sitting up in bed, not in distress, alert, oriented x3, answers all questions appropriately. Denies active shortness of breath, chest pain, palpitations, dizziness Patient reports having episodes of hallucinations-seeing mice crawling on the floor. He takes oxycodone for chronic pain but has been taking this evening for hallucinations started. No other new symptom I ( Dontrell Comer MD ) got a call for consult infected port-catheter, for removal port-catheter, I reviewed pt's H/P, labs, blood culture report with pt, pt denies fever, Allergies Allergy/AdvReac Type Severity Reaction Status Date / Time No Known Allergies Allergy Verified 12/29/22 07:57 Home Medications Medication Instructions Recorded Confirmed Type albuterol sulfate 90 mcg/actuation 2 puff inhalation Q6H PRN sob 10/29/22 01/05/23 History aerosol inhaler ipratropium 0.5 mg-albuterol 3 mg 3 ml inhalation Q8H wheezing 10/29/22 01/05/23 History (2.5 mg base)/3 mL nebulization soln tamsulosin 0.4 mg capsule 0.4 mg PO QAM 11/19/22 01/05/23 History prochlorperazine maleate 10 mg 10 mg PO Q6H PRN Nausea 12/08/22 01/05/23 History tablet (Compazine) oxycodone 5 mg capsule 5 - 10 mg PO UD PRN Pain 12/15/22 01/05/23 History dexamethasone 4 mg tablet 20 mg PO 2XWK 12/16/22 01/05/23 History benzonatate 100 mg capsule 100 mg PO TID PRN cough 12/22/22 01/05/23 History Magic Mouthwash 300 mL mouthwash 10 ml mucous membrane UD PRN 12/24/22 01/05/23 History dysphagia docusate sodium 100 mg tablet 100 mg PO BID 12/24/22 01/05/23 History (Stool Softener) famotidine 20 mg tablet (Pepcid) 10 mg PO BID 12/24/22 01/05/23 History lactobacillus combination no.4 3 3,000 mmu cells PO QAM 12/24/22 01/05/23 History billion cell capsule (Probiotic) loratadine 10 mg tablet (Claritin) 10 mg PO QAM 12/24/22 01/05/23 History montelukast 10 mg tablet 10 mg PO UD 12/24/22 01/05/23 History sucralfate 100 mg/mL oral 10 ml PO QID #420 mL 01/07/23 01/12/23 Rx suspension (Carafate) silver sulfadiazine 1 % topical 1 applic topical BID #85 grams 01/12/23 Rx cream (Silvadene) Past Med/Surg History Medical History Chemotherapy adverse reaction LAST WEEK: BLOOD PRESSURE DECREASED/ REQUIRING 1 NIGHT HOSPITAL STAY FOR OBSERVATION, MNMCDM type 2 (diabetes mellitus, type 2) Ex-smoker Frequent urination ONGOING ISSUEHepatitis C ActiveHistory of chest pain RECENT DX LUNG CA...TESTING...C/P SUSPECTED TO BE DUE TO TUMOR LOCATION AT LUNG ENTRY - WANTED TO PLACE A STENT/UNABLE TO STENTHistory of fracture of orbit HX RIGHT ORBITAL FX...SX/TITANIUM IMPLANTHistory of fractured vertebra History of influenza OCT 2022History of vascular access device CURRENT/ PT REPORTS BELIEVES HIS IS NON POWERLung cancer Dx'd 10/14/2022/CURRENTLY CHEMO AND RADIATIONOsteoporosis Ruptured intervertebral disc hx Surgical History H/O eye surgery 1996H/O knee surgery 1999History of bronchoscopy History of tonsillectomy and adenoidectomy [id number] in place (11/25/22) Insertion Access Port with Fluoroscopy Right Internal Jugular Vein(Right) - Colin Hernandez DO PT REPORTS HE THINKS HIS IS A NON POWER PORT Family History Brother Stomach cancerGrandfather (Maternal) Prostate cancerGrandfather (Paternal) Colon cancerFather Heart diseaseGrandfather Stroke Social History Smoking Status: Never smoker Tobacco Type: Cigarettes packs per day: 1.5; Second Hand Exposure: No; Hx Alcohol Use: Yes Alcohol type: beer Alcohol Intake Frequency: 4 or More x per/Week Hx Substance Use: No Preferred Language: Australian Communication Ability: Effective Visual Impairment: No Limitations Hearing Ability: Normal [employer] Required: No Beliefs That Will Affect Care: None Current Living Situation: Other 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 current occupational status: disabled Feels Safe at Home: Yes during the past year weight has: decreased > 10 lbs Assistive Devices: None Review of Systems Review of Systems: all noted and negative except for above Allergies Allergy/AdvReac Type Severity Reaction Status Date / Time No Known Allergies Allergy Verified 01/18/23 18:07 Home Medications Medication Instructions Recorded Confirmed Type albuterol sulfate 90 mcg/actuation 2 puff inhalation Q6H PRN sob 10/29/22 01/18/23 History aerosol inhaler ipratropium 0.5 mg-albuterol 3 mg 3 ml inhalation Q8H wheezing 10/29/22 01/18/23 History (2.5 mg base)/3 mL nebulization soln tamsulosin 0.4 mg capsule 0.4 mg PO QAM 11/19/22 01/18/23 History prochlorperazine maleate 10 mg 10 mg PO Q6H PRN Nausea 12/08/22 01/18/23 History tablet (Compazine) benzonatate 100 mg capsule 100 mg PO TID PRN cough 12/22/22 01/18/23 History Magic Mouthwash 300 mL mouthwash 10 ml mucous membrane UD PRN 12/24/22 01/18/23 History dysphagia docusate sodium 100 mg tablet 100 mg PO BID 12/24/22 01/18/23 History (Stool Softener) famotidine 20 mg tablet (Pepcid) 10 mg PO BID 12/24/22 01/18/23 History lactobacillus combination no.4 3 3,000 mmu cells PO QAM 12/24/22 01/18/23 History billion cell capsule (Probiotic) loratadine 10 mg tablet (Claritin) 10 mg PO QAM 12/24/22 01/18/23 History montelukast 10 mg tablet 10 mg PO UD 12/24/22 01/18/23 History sucralfate 100 mg/mL oral 10 ml PO QID #420 mL 01/07/23 01/18/23 Rx suspension (Carafate) silver sulfadiazine 1 % topical 1 applic topical BID #85 grams 01/12/23 01/18/23 Rx cream (Silvadene) oxycodone 20 mg tablet 20 mg PO .4-6 HR PRN Pain 01/18/23 01/18/23 History prednisone 20 mg tablet 40 mg PO DAILY 01/18/23 01/18/23 History Patient History Medical History Chemotherapy adverse reaction LAST WEEK: BLOOD PRESSURE DECREASED/ REQUIRING 1 NIGHT HOSPITAL STAY FOR OBSERVATION, [facility] DM type 2 (diabetes mellitus, type 2) Ex-smoker Frequent urination ONGOING ISSUE Hepatitis C Active History of chest pain RECENT DX LUNG CA...TESTING...C/P SUSPECTED TO BE DUE TO TUMOR LOCATION AT LUNG ENTRY - WANTED TO PLACE A STENT/UNABLE TO STENT History of fracture of orbit HX RIGHT ORBITAL FX...SX/TITANIUM IMPLANT History of fractured vertebra History of influenza OCT 2022 History of vascular access device CURRENT/ PT REPORTS BELIEVES HIS IS NON POWER Lung cancer Dx'd 10/14/2022/CURRENTLY CHEMO AND RADIATION Osteoporosis Ruptured intervertebral disc hx Surgical History H/O eye surgery 1996 H/O knee surgery 1999 History of bronchoscopy History of tonsillectomy and adenoidectomy 1972 Port-A-Cath in place (11/25/22) Insertion Access Port with Fluoroscopy Right Internal Jugular Vein(Right) - Colin Hernandez DO PT REPORTS HE THINKS HIS IS A NON POWER PORT Family History Brother Stomach cancer Grandfather (Maternal) Prostate cancer Grandfather (Paternal) Colon cancer Father Heart disease Grandfather Stroke Social History Smoking Status: Former smoker Tobacco Type: Cigarettes packs per day: 1.5; Second Hand Exposure: No; Do You Dip or Chew Tobacco: No; Tobacco Cessation Education Requested by Patient: No Hx Alcohol Use: No Hx Substance Use: No Preferred Language: Australian Communication Ability: Effective Visual Impairment: No Limitations Hearing Ability: Normal [employer] Required: No Beliefs That Will Affect Care: None Current Living Situation: Significant Other and Other 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 current occupational status: disabled Other Information That Helps Us Care for You: No Feels Safe at Home: Yes Safety Concerns: Feels Safe At This Time during the past year weight has: decreased > 10 lbs Assistive Devices: Nebulizer Physical Exam Constitutional: WD/WN, vitals as above Eyes: PERRL, conjunctivae normal, anicteric sclerae Neck: trachea midline, no thyromegaly Respiratory: normal respiratory effort, lungs clear to auscultation left lung sound decrease, a port on right upper chest wall, no redness, Cardiovascular: RRR, no murmur, no edema Gastrointestinal (Abdomen): normal bowel sounds, soft, nontender, no hepatosplenomegaly Neurologic: patellar DTR's 2+ bilat, sensation intact Psychiatric: A+Ox3, euthymic affect Results & Data Vital Signs (Past 12 Hours) Vital Signs Temp Pulse Pulse Resp BP Pulse Ox O2 Del Method 01/20/23 13:51 87 18 98 Room Air 01/20/23 11:02 36.6 C 99 H 19 95/62 L 98 Room Air 01/20/23 10:35 100 H 01/20/23 07:55 36.7 C 107 H 19 96/58 L 97 Room Air 01/20/23 07:50 Room Air 01/20/23 06:52 100 H 18 97 Room Air 01/20/23 03:46 36.8 C 97 H 16 95/59 L 97 Room Air Laboratory Results Abnormal lab results 01/20/23 01/20/23 01/20/23 Range/Units 05:46 05:46 08:50 WBC 4.23 L (4.8-10.8) K/ul RBC 2.85 L (4.70-6.10) M/uL Hgb 8.2 L (14.0-18.0) g/dl Hct 25.0 L (42.0-52.0) % RDW Std Deviation 52.4 H (36.4-46.3) fL RDW Coeff of Mathieu 16.6 H (11.5-14.5) % Plt Count 104 L (130-400) K/uL Lymph # (Auto) 0.12 L (1.2-3.4) K/uL Sodium 132 L (136-145) mmol/L Creatinine 0.57 L (0.6-1.4) mg/dl BUN/Creatinine Ratio 21.1 H (10-20) Calcium 7.6 L (8.6-10.3) mg/dl Iron (35-175) mcg/dl Vancomycin Trough 9.8 L (10-20) mcg/ml 01/20/23 Range/Units 08:50 WBC (4.8-10.8) K/ul RBC (4.70-6.10) M/uL Hgb (14.0-18.0) g/dl Hct (42.0-52.0) % RDW Std Deviation (36.4-46.3) fL RDW Coeff of Mathieu (11.5-14.5) % Plt Count (130-400) K/uL Lymph # (Auto) (1.2-3.4) K/uL Sodium (136-145) mmol/L Creatinine (0.6-1.4) mg/dl BUN/Creatinine Ratio (10-20) Calcium (8.6-10.3) mg/dl Iron 19 L (35-175) mcg/dl Vancomycin Trough (10-20) mcg/ml [facility] [address] [place] [address] / Director: Prashant Golden M.D. Clinical Laboratory Report Name: NICKOJESUS Acct: [id number] Status: ADM IN : 1960 [facility] Date: 01/18/23 Age: 62 Sex: M Dis Date: Loc: [address] [facility] Spec: [id number] Collected: 01/18/23 Received: 01/18/[address]: Jordan Segura, DO Source: Blood OV Order: Ordered: Blood Culture Comments: Comment Default is separate sites, same time Procedure Result Verified Site Blood Culture Aerobic Preliminary 01/20/23 Organism 1 Staphylococcus species Sens Sensitivities to Follow Blood Culture PCR Panel If viewing in EMR, results available under LAB Serology tab. Phoned positive Blood Culture Gram Stain report to KEIRA LOUISE on 01/19/23 at 0852 by [id number]. [place] [id number]. Blood Culture Anaerobic Preliminary 01/20/23 Organism 1 Staphylococcus species Sens Sensitivities to Follow
--- NOTE | 2023-01-20 16:55 | Hospitalist Progress Note ---
Date of Service January 20, 2023 Assessment & Plan (1) Bacteremia: (2) Infected venous access port: (3) Pneumonia: Plan: 62-year-old male with history of recently diagnosed lung cancer, status postchemotherapy and radiation therapy, History of smoking, etc. presenting with cough times few days, and episode of confusion/hallucination today. MRSA BACTEREMIA, PORT INFECTION BILATERAL LOWER LOBE PNEUMONIA LUNG CANCER, STATUS POSTCHEMOTHERAPY AND RADIATION Possible Sepsis, POA possibly due to a combination of pneumonia and infusaport CT chest: 1. Multifocal tree-in-bud nodules, most pronounced within the left lower lobe. Associated bronchial wall thickening and mucus plugging. The findings suggest an infectious process such as bronchiolitis/bronchopneumonia. 2. 6.2 x 2.8 cm cavitary left upper lobe focus which communicates with the left upper lobe bronchus. This has decreased in size since treatment planning CT of December 08, 2022 and may represent the primary neoplasm. Continued imaging follow-up is recommended to exclude residual viable tumor. 3. No pleural effusion. No pneumothorax. Sputum culture: MRSA Blood cultures: Positive MRSA Repeat blood cultures: Pending Day 2 of IV vancomycin plus cefepime Afebrile, clinically seems to be improving overall General surgery consulted, for port removal tomorrow ID consulted, pending recommendations Continue Xopenex/Atrovent every 6 hours Hypertonic saline nebs twice daily RADIATION DERMATITIS,MRSA CELLULITIS, LEFT UPPER CHEST/NECK REGION On vancomycin IV Wound care consulted ORAL CANDIDIASIS Nystatin HYPOTENSION Secondary to poor intake given IV fluids cortisol level ok BP improved DC IV fluids EPISODES OF HALLUCINATIONS, CONFUSION? Possible encephalopathy, metabolic secondary to #1 CT head: No acute process Patient back to baseline mental status Pancytopenia due to Antineoplastic chemotherapy CBC stable Iron level 19, will replace No signs of bleeding Monitor DVT prophylaxis heparin subcutaneous Disposition Lives at home with family plan of care discussed with patient at the bedside in detail and at length all questions answered they are understanding, agreeable, comfortable with the plan of care Admission and Anticipated Discharge Date Admission Date: January 18, 2023 Subjective Follow-up for MRSA bacteremia, port infection, lung cancer status postchemotherapy and radiation therapy, etc. Seen sitting up in bed, comfortable, not in distress States he continues to feel improved overall Breathing is improving, coughing No chest pain No fevers or chills, nausea vomiting abdominal pain No other symptom Review of Systems Review of Systems: all noted and negative except for above Physical Exam Physical Exam: General- oriented x 3, not in distress, speaks in sentences with no effort or accessory muscle use Eyes- anicteric Neck- no JVD Lungs-mild crackles bilateral bases No wheezing Heart- normal rate, regular rhythm; no murmurs Moderate erythema on the right upper chest wall/neck area Abdomen- normal bowel sounds, nondistended, soft, no tenderness Extremities- no pretibial edema, no calf tenderness Neuro- alert, oriented x 3; no gross focal neurologic deficits Skin- warm & dry Results & Data Results & Data Vital Signs (Past 12 Hours) Vital Signs Temp Pulse Pulse Resp BP Pulse Ox O2 Del Method 01/20/23 15:41 96 H 01/20/23 15:34 36.4 C L 92 H 19 105/68 100 Room Air 01/20/23 13:51 87 18 98 Room Air 01/20/23 11:02 36.6 C 99 H 19 95/62 L 98 Room Air 01/20/23 10:35 100 H 01/20/23 07:55 36.7 C 107 H 19 96/58 L 97 Room Air 01/20/23 07:50 Room Air 01/20/23 06:52 100 H 18 97 Room Air all noted and reviewed including below (3) Pneumonia Laterality: bilateral Lung location: unspecified part of lung Pneumonia type: due to unspecified organism Qualified Code(s): J18.9 - Pneumonia, unspecified organism
[2023-01-20] MEDS: HEPARIN SOD 5,000 UNIT/0.5 ML VIAL SQ SCH (19:59)
[2023-01-20] MEDS: MONTELUKAST SODIUM 10 MG TABLET PO SCH (19:59)
[2023-01-21] MEDS: LEVALBUTEROL 1.25MG/0.5ML NEB INH SCH ×3 (00:21→12:42)
[2023-01-21] MEDS: IPRATROPIUM BROMIDE NEB SOLN 0.02% 2.5 ML VIAL INH SCH ×3 (00:21→12:42)
[2023-01-21] MEDS: oxyCODONE HCL IR 5 MG TAB (IMMEDIATE RELEASE) PO PRN ×2 (00:31→08:16)
[2023-01-21] MEDS: VANCOMYCIN HCL 1,000 MG in SODIUM CHLORIDE 0.9% 250 ML IV SCH ×2 (01:59→10:39)
[2023-01-21] MEDS: CEFEPIME 2,000 MG in SYRINGE 0 ML IV SCH ×3 (01:59→18:08)
[2023-01-21] MEDS: HEPARIN SOD 5,000 UNIT/0.5 ML VIAL SQ SCH ×3 (06:17→21:23)
[2023-01-21 06:35] LABS: BUN Creatinine Ratio 13.5 (10-20); Calcium 7.6 mg/dl (8.6-10.3); Creatinine Clr Calc Pharmacy 118.3 ml/min; Est GFR (African American) 132.5 ml/min; Est GFR (Non-African American) 114.3 ml/min; Potassium 3.6 mmol/L (3.5-5.1)
[2023-01-21 06:59] LABS: Basophils # (auto) 0.02 K/uL (0-0.2); Basophils % (auto) 0.4 %; Eosinophils # (auto) 0.04 K/uL (0-0.50); Eosinophils % (auto) 0.9 %; Hematocrit (blood only) 23.8 % (42.0-52.0); Hemoglobin 7.9 g/dl (14.0-18.0); Immature Granulocytes # (auto) 0.02 K/uL (0.01-0.20); Immature Granulocytes % (auto) 0.4 %; Lymphocytes # (auto) 0.18 K/uL (1.2-3.4); Lymphocytes % (auto) 3.9 %; Mean Corpuscular Hemoglobin 28.5 pg (25.0-34.0); Mean Corpuscular Hgb Conc 33.2 g/dL (32.0-36.0); Mean Corpuscular Volume 85.9 fL (80.0-100.0); Monocytes # (auto) 0.65 K/uL (0.11-0.59); Monocytes % (auto) 14.1 %; Neutrophils # (auto) 3.69 K/uL (1.40-6.50); Neutrophils % (auto) 80.3 %; Platelet Count 99 K/uL (130-400); RDW Coefficient of Variation 16.5 % (11.5-14.5); RDW Standard Deviation 50.4 fL (36.4-46.3); Red Blood Count 2.77 M/uL (4.70-6.10); Toxic Granulation 1+
[2023-01-21] MEDS: SODIUM CHLOR 7% 4 ML NEB NEB SCH ×2 (07:24→19:44)
[2023-01-21] MEDS: NYSTATIN SUSP 500,000 U/5 ML UDC PO SCH ×4 (08:17→21:23)
[2023-01-21] MEDS: FERROUS SULFATE 325 MG TAB PO SCH ×2 (08:17→16:52)
[2023-01-21] MEDS: DOCUSATE SODIUM 100 MG CAP PO SCH ×2 (08:18→21:23)
[2023-01-21] MEDS: ADVANCED PROBIOTIC 1250 MG CAPSULE PO SCH (08:18)
[2023-01-21] MEDS: BACITRACIN OINT 15 GM TUBE EXT SCH ×2 (08:19→20:00)
[2023-01-21] MEDS: SUCRALFATE 1 GM/10 ML UDC PO SCH ×4 (08:19→21:23)
[2023-01-21] MEDS: guaiFENesin 600 MG TABCR PO SCH ×2 (08:19→21:23)
[2023-01-21] MEDS: FAMOTIDINE 10 MG TABLET PO SCH ×2 (08:20→21:23)
[2023-01-21] MEDS ORDERED: VANCOMYCIN LEVEL ONE (09:30)
--- NOTE | 2023-01-21 09:55 | History & Physical Bridge Note ---
Date of Service January 21, 2023 History & Physical Bridge Note I have examined the patient, reviewed the History & Physical and in the interval since the performance of the History & Physical I have noted the following changes of clinical significance: no changes noted
--- NOTE | 2023-01-21 11:11 | Pharmacy Report ---
Pharmacy PK ABX Note - Date of Service January 21, 2023 - Assessment and Plan Assessment 62 year old M receiving vancomycin/cefepime for treatment of bacteremia/pneumonia. Pertinent microbiologic data includes: Positive MRSA Nasal Swab, blood, sputum, and chest culture growing MRSA. Currently, EFRA reported as 2 - lab preforming dilution to establish EFRA. 01/21: * Day #3 of antimicrobial therapy * Vanc EFRA confirmed to be 2 via turbidity method. Recommended performing TTE to check for endocarditis. * Will continue with Vancomycin today. Trough was only 10.3 this AM but AUC dosing remains therapeutic with AUC/EFRA of 400-600. Per attending's note, patient is improving. To have port removed today. Plan Vancomycin * Current regimen: 1000 mg IV every 8 hours * Trough level obtained 01/21/23 resulted as 10.3 mcg/mL. This is predicted to achieve target AUC/EFRA of 400-600 mg/L.hr * Change to 1250 mg IV every 8 hours given EFRA of 2 and immunocompromised state. Planning to achieve an AUC/EFRA of close to 600. * Predicted AUC at steady state: 579 mg/L.hr * Repeat trough level ordered for: 01/22/23 Pharmacy will continue to follow and will adjust dose/frequency as necessary. Thank you. Pharmacy has transitioned to AUC monitoring for vancomycin. AUC/EFRA is the preferred PK/PD target and is associated with decreased risk of nephrotoxicity compared to traditional trough targets.
[2023-01-21] MEDS ORDERED: VANCOMYCIN HCL IV ONE (12:00)
[2023-01-21] MEDS ORDERED: DEXTROSE 5% IV ONE (12:00)
[2023-01-21] MEDS ORDERED: MIDAZOLAM HCL 1 MG/ML 2ML VIAL ONE (15:00)
[2023-01-21] MEDS ORDERED: PROPOFOL IV EMULSION 10 MG/ML 20 ML VIAL IV ONE (15:01)
[2023-01-21] MEDS ORDERED: LIDOCAINE 2% MPF LOCAL 5 ML VIAL ONE (15:01)
[2023-01-21] MEDS ORDERED: ONDANSETRON INJ 2 MG/ML 2 ML VIAL ONE (15:01)
[2023-01-21] MEDS ORDERED: LIDOCAINE 1% LOCAL 20 ML VIAL ONE ×2 (15:08→17:22)
[2023-01-21] MEDS ORDERED: BUPIVACAINE 0.5 % 5 MG/1 ML MPF 30ML VIAL ONE (15:08)
[2023-01-21] MEDS ORDERED: ONDANSETRON INJ 2 MG/ML 2 ML VIAL IV PRN (15:11)
[2023-01-21] MEDS ORDERED: ATROPINE SULFATE 0.1 MG/ML 10ML SYR IV PRN (15:11)
[2023-01-21] MEDS ORDERED: HYDROmorphone INJ 2 MG/ML SYR/VIAL IV PRN (15:11)
[2023-01-21] MEDS ORDERED: ePHEDrine sulfate 50 MG/ML AMP IV PRN (15:11)
[2023-01-21] MEDS ORDERED: fentaNYL citrate PF 100 MCG/2 ML VIAL IV PRN (15:11)
--- NOTE | 2023-01-21 15:11 | Anesthesiology Consultation ---
Date of Service January 21, 2023 Assessment & Plan ASA ASA4 Proposed Anesthesia Anesthesia Type: MAC Risk / Benefits Reviewed With: PT / POA / Parent / Guardian, Accepts Plan and Informed Consent Obtained History Surgery Operation Date: 01/21/23 07:00 Proposed Procedures p Infusaport Removal - Dontrell Comer MD Height/Weight Height: 5 ft 6 in Weight: 56.8 kg Allergies Allergy/AdvReac Type Severity Reaction Status Date / Time No Known Allergies Allergy Verified 01/18/23 18:07 Medications Home Medications Medication Instructions Recorded Confirmed Last Taken albuterol sulfate 90 mcg/actuation 2 puff inhalation Q6H PRN sob 10/29/22 01/18/23 12/15/22 aerosol inhaler ipratropium 0.5 mg-albuterol 3 mg 3 ml inhalation Q8H wheezing 10/29/22 01/18/23 12/15/22 (2.5 mg base)/3 mL nebulization soln tamsulosin 0.4 mg capsule 0.4 mg PO QAM 11/19/22 01/18/23 12/15/22 prochlorperazine maleate 10 mg 10 mg PO Q6H PRN Nausea 12/08/22 01/18/23 12/15/22 tablet (Compazine) benzonatate 100 mg capsule 100 mg PO TID PRN cough 12/22/22 01/18/23 Unknown Magic Mouthwash 300 mL mouthwash 10 ml mucous membrane UD PRN 12/24/22 01/18/23 Unknown dysphagia docusate sodium 100 mg tablet 100 mg PO BID 12/24/22 01/18/23 Unknown (Stool Softener) famotidine 20 mg tablet (Pepcid) 10 mg PO BID 12/24/22 01/18/23 Unknown lactobacillus combination no.4 3 3,000 mmu cells PO QAM 12/24/22 01/18/23 Unknown billion cell capsule (Probiotic) loratadine 10 mg tablet (Claritin) 10 mg PO QAM 12/24/22 01/18/23 Unknown montelukast 10 mg tablet 10 mg PO UD 12/24/22 01/18/23 Unknown sucralfate 100 mg/mL oral 10 ml PO QID #420 mL 01/07/23 01/18/23 Unknown suspension (Carafate) silver sulfadiazine 1 % topical 1 applic topical BID #85 grams 01/12/23 01/18/23 Unknown cream (Silvadene) oxycodone 20 mg tablet 20 mg PO .4-6 HR PRN Pain 01/18/23 01/18/23 Unknown prednisone 20 mg tablet 40 mg PO DAILY 01/18/23 01/18/23 Unknown Active Medications Generic Name Dose Route Start Last Admin Trade Name Freq PRN Reason Stop Dose Admin Bacitracin 1 appln 01/19/23 21:00 01/21/23 08:19 Bacitracin Oint 15 Gm Tube EXT 02/18/23 20:59 1 appln BID VARUN Administration Docusate Sodium 100 mg 01/19/23 21:00 01/21/23 08:18 Docusate Sodium 100 Mg Cap PO 02/18/23 20:59 100 mg BID VARUN Administration Famotidine 10 mg 01/19/23 21:00 01/21/23 08:20 Famotidine 10 Mg Tablet PO 02/18/23 20:59 10 mg BID VARUN Administration Ferrous Sulfate 325 mg 01/21/23 08:00 01/21/23 08:17 Ferrous Sulfate 325 Mg Tab PO 02/20/23 07:59 325 mg BIDM VARUN Administration Guaifenesin 1,200 mg 01/20/23 09:00 01/21/23 08:19 Guaifenesin 600 Mg Tabcr PO 02/19/23 08:59 1,200 mg Q12 VARUN Administration Heparin Sodium (Porcine) 5,000 units 01/20/23 22:00 01/21/23 15:08 Heparin Sod 5,000 Unit/0.5 Ml Vial SQ 02/19/23 21:59 Not Given Q8 VARUN Cefepime HCl 2,000 mg/ Syringe 20 mls @ 5 mls/min 01/19/23 10:00 01/21/23 09:33 IV 01/26/23 09:59 5 mls/min Q8H VARUN Administration Ipratropium [place] 0.5 mg 01/18/23 19:00 01/21/23 12:42 Ipratropium [place] Neb Soln 0.02% 2.5 Ml Vial INH 02/17/23 18:59 0.5 mg Q6R VARUN Administration Lactobacillus Acidophilus 2 cap 01/20/23 09:00 01/21/23 08:18 Advanced Probiotic 1250 Mg Capsule PO 02/19/23 08:59 2 cap QAM VARUN Administration Levalbuterol HCl 1.25 mg 01/18/23 19:00 01/21/23 12:42 Levalbuterol 1.25mg/0.5ml Neb INH 02/17/23 18:59 1.25 mg Q6R VARUN Administration Montelukast Sodium 10 mg 01/19/23 21:00 01/20/23 19:59 Montelukast Sodium 10 Mg Tablet PO 02/18/23 20:59 10 mg QPM VARUN Administration Nystatin 5 ml 01/18/23 21:00 01/21/23 13:52 Nystatin Susp 500,000 U/5 Ml Udc PO 01/28/23 20:59 5 ml QID VARUN Administration Oxycodone HCl 5 - 10 mg 01/18/23 23:21 01/21/23 08:16 Oxycodone Hcl Ir 5 Mg Tab (Immediate Release) PO 02/01/23 23:20 10 mg QID PRN Administration Pain Sodium Chloride 4 ml 01/19/23 08:30 01/21/23 07:24 Sodium Chlor 7% 4 Ml [facility] 02/18/23 08:29 4 ml BIDR VARUN Administration Sucralfate 1 gm 01/19/23 21:00 01/21/23 13:52 Sucralfate 1 Gm/10 Ml Udc PO 02/18/23 20:59 1 gm QID VARUN Administration NPO Date Last Intake of Fluids: 01/20/23 Time Last Intake of Fluids: 22:00 Last Intake of Fluids Comment: sip of water 0830 w/meds Date Last Intake of Solids: 01/20/23 Time Last Intake of Solids: 18:30 Past Medical History Medical History Chemotherapy adverse reaction LAST WEEK: BLOOD PRESSURE DECREASED/ REQUIRING 1 NIGHT HOSPITAL STAY FOR OBSERVATION, [facility] DM type 2 (diabetes mellitus, type 2) Ex-smoker Frequent urination ONGOING ISSUE Hepatitis C Active History of chest pain RECENT DX LUNG CA...TESTING...C/P SUSPECTED TO BE DUE TO TUMOR LOCATION AT LUNG ENTRY - WANTED TO PLACE A STENT/UNABLE TO STENT History of fracture of orbit HX RIGHT ORBITAL FX...SX/TITANIUM IMPLANT History of fractured vertebra History of influenza OCT 2022 History of vascular access device CURRENT/ PT REPORTS BELIEVES HIS IS NON POWER Lung cancer Dx'd 10/14/2022/CURRENTLY CHEMO AND RADIATION Osteoporosis Ruptured intervertebral disc hx Exercise / Class Metabolic Activity II 4-5 Yardwork/Stairs/Walk up hill Past Family History Family History Brother Stomach cancer Grandfather (Maternal) Prostate cancer Grandfather (Paternal) Colon cancer Father Heart disease Grandfather Stroke Past Surgical History Surgical History H/O eye surgery 1996 H/O knee surgery 1999 History of bronchoscopy History of tonsillectomy and adenoidectomy 1972 Port-A-Cath in place (11/25/22) Insertion Access Port with Fluoroscopy Right Internal Jugular Vein(Right) - Colin Hernandez DO PT REPORTS HE THINKS HIS IS A NON POWER PORT Past Anesthesia History No Hx of Anesthesia Complications and No Family Hx of Anesthesia Complications History of PONV No Hx of PONV and No Hx of Motion Sickness Social History Smoking Status: Former smoker tobacco type: cigarettes and smokeless tobacco Do You Dip or Chew Tobacco: No Hx Alcohol Use: No Alcohol type: beer alcohol intake frequency: 0-2 drinks per day Hx Substance Use: No substance use type: former substance user, marijuana and methamphetamine Substance Use Type Other:: used methamphetamine and marijuana in the "80's" Review of Systems denies fever/cough/ colds/ chest pain/ SOB/ BERHANE denies BERHANE Physical Exam Vital Signs Last Vital Signs Temp 36.7 C 01/21/23 15:02 Pulse 87 01/21/23 15:02 Resp 18 01/21/23 15:02 BP 112/76 01/21/23 15:02 Pulse Ox 98 01/21/23 15:02 O2 Del Method Room Air 01/21/23 15:02 ENMT Mouth: + poor dentition (manymissing); no TMJ abnormality and no dentition abnormality Thyromental Distance: > or= 3.5 Finger Breadths Mallampati Class: III Neck neck extension not limited Respiratory normal respiratory effort; no respiratory distress Auscultation: lungs clear to auscultation bilaterally Cardiovascular Rate/Rhythm: regular rate and regular rhythm Neurologic moves all extremities Psychiatric Orientation: alert and oriented x 3 Testing Laboratory Results 01/21/23 05:26 01/21/23 05:26 PT 11.3 Seconds (9.0-12.0) 01/18/23 14:58 INR 1.1 (0.9-1.1) 01/18/23 14:58 APTT 33.6 Seconds (21.0-31.0) H 01/18/23 14:58 Urine Color Yellow 01/19/23 06:15 Urine Appearance Clear (Clear) 01/19/23 06:15 Urine pH 5.5 (4.5-7.5) 01/19/23 06:15 Ur Specific [place] <= 1.005 (1.000-1.030) 01/19/23 06:15 Urine Protein Negative (Negative) 01/19/23 06:15 Urine Glucose (UA) Negative (Negative) 01/19/23 06:15 Urine Ketones Negative (Negative) 01/19/23 06:15 Urine Nitrite Negative (Negative) 01/19/23 06:15 Ur Leukocyte Esterase Negative (Negative) 01/19/23 06:15 01/18/23 14:58 Aerobic Blood Culture - Preliminary Blood Staph aureus MRSA Anaerobic Blood Culture - Preliminary No growth in Anaerobic bottle after 48 hours. 01/19/23 06:25 Gram Stain - Final Sputum, Expectorated Sputum Culture - Final Staph aureus MRSA 01/18/23 14:58 Gram Stain - Final Chest Wound Culture - Final Staph aureus MRSA 01/18/23 15:13 Aerobic Blood Culture - Final Blood Staph aureus MRSA Anaerobic Blood Culture - Final Staph aureus MRSA 01/20/23 05:46 Aerobic Blood Culture - Preliminary Blood No growth in Aerobic bottle after 24 hours. Anaerobic Blood Culture - Preliminary No growth in Anaerobic bottle after 24 hours. 01/20/23 05:46 Aerobic Blood Culture - Preliminary Blood No growth in Aerobic bottle after 24 hours. Anaerobic Blood Culture - Preliminary No growth in Anaerobic bottle after 24 hours.
--- NOTE | 2023-01-21 15:40 | Post Operative Brief Note ---
Immediate Post Op Note v1 Date of Surgery January 21, 2023 Pre & Post Diagnosis Operation Date: 01/21/23 07:00 pre-op diagnosis: infected port-catheter post-op diagnosis: infected port-catheter I identified the patient and participated in the time-out.: Yes Procedure Operation Date: 01/21/23 07:00 remove port -catheter on right chest wall, Surgeon Dontrell Comer MD Permit Technician surgical technology instructor Estimated Blood Loss 3 Findings Consistent with Post-Op Diagnosis intact port and catheter tip of catheter for culture Fluids 200ml Anesthesia Type Local Complications none Disposition Accompanied Patient To Recovery: Yes
--- NOTE | 2023-01-21 16:18 | Anesthesiology Progress Note ---
Date of Service January 21, 2023 Anesthesia Post Procedure Vital Signs Vital Signs: Temp Pulse Pulse Pulse Resp BP BP 01/21/23 16:15 37.0 C 90 20 97/60 L 01/21/23 14:05 90 01/21/23 16:05 90 14 85/60 L 01/21/23 15:55 36.1 C L 86 16 119/76 01/21/23 15:02 36.7 C 87 18 112/76 01/21/23 12:42 86 16 01/21/23 11:09 36.7 C 89 19 96/60 L 01/21/23 07:36 01/21/23 07:18 93 H 01/21/23 07:11 88 16 01/21/23 07:02 36.9 C 89 18 99/66 L 01/21/23 03:23 36.8 C 98 H 18 100/66 01/21/23 00:21 107 H 24 01/20/23 22:00 110 H 01/20/23 20:00 01/20/23 22:32 36.5 C 104 H 20 105/68 01/20/23 19:00 37.2 C 102 H 17 104/68 Pulse Ox O2 Del Method O2 Flow Rate 01/21/23 16:15 98 Room Air 01/21/23 14:05 01/21/23 16:05 100 Oxymask 4 01/21/23 15:55 100 Oxymask 6 01/21/23 15:02 98 Room Air 01/21/23 12:42 99 Room Air 01/21/23 11:09 98 Room Air 01/21/23 07:36 Room Air 01/21/23 07:18 01/21/23 07:11 96 Room Air 01/21/23 07:02 96 Room Air 01/21/23 03:23 98 Room Air 01/21/23 00:21 96 Room Air 01/20/23 22:00 01/20/23 20:00 Room Air 01/20/23 22:32 95 Room Air 01/20/23 19:00 98 Room Air Pain Intensity Left Chest: Pain Intensity: 5 Transfer of Care Handoff Completed per policy Notes Mental Status: alert / awake / arousable and participated in evaluation Patient Amnestic to Procedure: Yes Nausea / Vomiting: adequately controlled Pain: adequately controlled Airway Patency, RR, SpO2: stable & adequate BP & HR: stable & adequate Hydration State: stable & adequate Anesthetic Complications: no major complications apparent and Pt Satisfied with anesthetic care
--- NOTE | 2023-01-21 16:19 | Hospitalist Progress Note ---
Date of Service January 21, 2023 Assessment & Plan (1) Bacteremia: (2) Infected venous access port: (3) Pneumonia: Plan: 62-year-old male with history of recently diagnosed lung cancer, status postchemotherapy and radiation therapy, History of smoking, etc. presenting with cough times few days, and episode of confusion/hallucination today. MRSA BACTEREMIA, PORT INFECTION BILATERAL LOWER LOBE PNEUMONIA LUNG CANCER, STATUS POSTCHEMOTHERAPY AND RADIATION Possible Sepsis, POA possibly due to a combination of pneumonia and infusaport CT chest: 1. Multifocal tree-in-bud nodules, most pronounced within the left lower lobe. Associated bronchial wall thickening and mucus plugging. The findings suggest an infectious process such as bronchiolitis/bronchopneumonia. 2. 6.2 x 2.8 cm cavitary left upper lobe focus which communicates with the left upper lobe bronchus. This has decreased in size since treatment planning CT of December 08, 2022 and may represent the primary neoplasm. Continued imaging follow-up is recommended to exclude residual viable tumor. 3. No pleural effusion. No pneumothorax. Sputum culture: MRSA Blood cultures: Positive MRSA Repeat blood cultures: No growth in 24 hours Day 3 of IV vancomycin plus cefepime Afebrile, clinically seems to be improving overall Transthoracic echocardiogram done; no evidence of vegetation Patient underwent removal of Port-A-Cath on January 21 by general surgery Serial blood culture tomorrow and after. Appreciate ID recommendation RADIATION DERMATITIS,MRSA CELLULITIS, LEFT UPPER CHEST/NECK REGION On vancomycin IV Wound care consulted ORAL CANDIDIASIS Nystatin HYPOTENSION Secondary to poor intake given IV fluids cortisol level ok BP improved Started on LR for now EPISODES OF HALLUCINATIONS, CONFUSION? Possible encephalopathy, metabolic secondary to #1 CT head: No acute process Patient back to baseline mental status Pancytopenia due to Antineoplastic chemotherapy Labs personally reviewed; CBC stable. No signs of bleeding DVT prophylaxis heparin subcutaneous Disposition Lives at home with family Please note the above document was generated using voice recognition software. It may contain grammatical, syntax or spelling errors. Any formal questions or concerns about the content, text or information contained within the body of this dictation should be directly addressed to the provider for clarification Time spent evaluating patient, direct bedside care, chart review, placing orders, interpretation of diagnostic studies, discussion with consultants, patient, and family members, as well as other required patient management activities is 50 minutes Admission and Anticipated Discharge Date Admission Date: January 18, 2023 Subjective Patient seen and examined at bedside. Comfortable, not in any distress. Review of Systems Review of Systems: All systems reviewed & are unremarkable except as noted in Subjective Physical Exam Physical Exam: General- oriented x 3, not in distress, speaks in sentences with no effort or accessory muscle use Eyes- anicteric Neck- no JVD Lungs-mild crackles bilateral bases No wheezing Chest- port a cath on right upper chest. Heart- normal rate, regular rhythm; no murmurs Moderate erythema on the right upper chest wall/neck area Abdomen- normal bowel sounds, nondistended, soft, no tenderness Extremities- no pretibial edema, no calf tenderness Neuro- alert, oriented x 3; no gross focal neurologic deficits Skin- warm & dry Results & Data Results & Data Vital Signs (Past 12 Hours) Vital Signs Temp Pulse Pulse Pulse Resp BP BP 01/21/23 14:05 90 01/21/23 16:05 90 14 85/60 L 01/21/23 15:55 36.1 C L 86 16 119/76 01/21/23 15:02 36.7 C 87 18 112/76 01/21/23 12:42 86 16 01/21/23 11:09 36.7 C 89 19 96/60 L 01/21/23 07:36 01/21/23 07:18 93 H 01/21/23 07:11 88 16 01/21/23 07:02 36.9 C 89 18 99/66 L Pulse Ox O2 Del Method O2 Flow Rate 01/21/23 14:05 01/21/23 16:05 100 Oxymask 4 01/21/23 15:55 100 Oxymask 6 01/21/23 15:02 98 Room Air 01/21/23 12:42 99 Room Air 01/21/23 11:09 98 Room Air 01/21/23 07:36 Room Air 01/21/23 07:18 01/21/23 07:11 96 Room Air 01/21/23 07:02 96 Room Air Laboratory Results Laboratory Results WBC 4.60 K/ul (4.8-10.8) L 01/21/23 05:26 RBC 2.77 M/uL (4.70-6.10) L 01/21/23 05:26 Hgb 7.9 g/dl (14.0-18.0) L 01/21/23 05:26 Hct 23.8 % (42.0-52.0) L 01/21/23 05:26 MCV 85.9 fL (80.0-100.0) 01/21/23 05:26 MCH 28.5 pg (25.0-34.0) 01/21/23 05:26 MCHC 33.2 g/dL (32.0-36.0) 01/21/23 05:26 RDW Std Deviation 50.4 fL (36.4-46.3) H 01/21/23 05:26 RDW Coeff of Mathieu 16.5 % (11.5-14.5) H 01/21/23 05:26 Plt Count 99 K/uL (130-400) L 01/21/23 05:26 MPV 10.0 fL (9.4-12.4) 01/21/23 05:26 Immature Gran % (Auto) 0.4 % 01/21/23 05:26 Neut % (Auto) 80.3 % 01/21/23 05:26 Lymph % (Auto) 3.9 % 01/21/23 05:26 [place] % (Auto) 14.1 % 01/21/23 05:26 Eos % (Auto) 0.9 % 01/21/23 05:26 Baso % (Auto) 0.4 % 01/21/23 05:26 Neut # (Auto) 3.69 K/uL (1.40-6.50) 01/21/23 05:26 Lymph # (Auto) 0.18 K/uL (1.2-3.4) L 01/21/23 05:26 [place] # (Auto) 0.65 K/uL (0.11-0.59) H 01/21/23 05:26 Eos # (Auto) 0.04 K/uL (0-0.50) 01/21/23 05:26 Baso # (Auto) 0.02 K/uL (0-0.2) 01/21/23 05:26 Immature Gran # (Auto) 0.02 K/uL (0.01-0.20) 01/21/23 05:26 Toxic Granulation 1+ 01/21/23 05:26 PT 11.3 Seconds (9.0-12.0) 01/18/23 14:58 INR 1.1 (0.9-1.1) 01/18/23 14:58 APTT 33.6 Seconds (21.0-31.0) H 01/18/23 14:58 PTT Ratio 1.2 01/18/23 14:58 VBG pH 7.41 (7.36-7.41) 01/18/23 15:13 VBG pCO2 41 mmHg (38-50) 01/18/23 15:13 VBG pO2 17 mmHg 01/18/23 15:13 VBG HCO3 26 mmol/L 01/18/23 15:13 VBG O2 Saturation < 60.0 % 01/18/23 15:13 VBG Base Excess 1.2 mEq/L 01/18/23 15:13 Sodium 132 mmol/L (136-145) L 01/21/23 05:26 Potassium 3.6 mmol/L (3.5-5.1) 01/21/23 05:26 Chloride 101 mmol/L (98-107) 01/21/23 05:26 Carbon Dioxide 25 mmol/L (21-32) 01/21/23 05:26 Anion Gap 6 (3-11) 01/21/23 05:26 BUN 7 mg/dl (6-23) 01/21/23 05:26 Creatinine 0.52 mg/dl (0.6-1.4) L 01/21/23 05:26 Est Cr Clr Drug Dosing 118.3 ml/min 01/21/23 05:26 Est GFR ( Amer) 132.5 ml/min 01/21/23 05:26 Est GFR (Non-Af Amer) 114.3 ml/min 01/21/23 05:26 BUN/Creatinine Ratio 13.5 (10-20) 01/21/23 05:26 Glucose 99 mg/dl (70-99(Fasting)) 01/21/23 05:26 Lactate 1.5 mmol/L (0.4-2.0) 01/18/23 14:58 Calcium 7.6 mg/dl (8.6-10.3) L 01/21/23 05:26 Magnesium 2.1 mg/dl (1.7-2.4) 01/18/23 14:58 Iron 19 mcg/dl (35-175) L 01/20/23 08:50 Total Bilirubin 0.8 mg/dl (0.2-1.0) 01/18/23 14:58 Direct Bilirubin 0.2 mg/dl (0-0.2) 01/18/23 14:58 AST 17 U/L (13-39) 01/18/23 14:58 ALT 16 U/L (7-52) 01/18/23 14:58 Alkaline Phosphatase 76 U/L (34-104) 01/18/23 14:58 Ammonia 17.0 umol/L (18-72) L 01/18/23 14:58 Troponin I High Sens 12.6 pg/ml (0-20) 01/18/23 14:58 Total Protein 6.9 gm/dl (6.0-8.3) 01/18/23 14:58 Albumin 3.6 gm/dl (3.4-5.0) 01/18/23 14:58 Vitamin B12 512 pg/ml (180-914) 01/20/23 08:50 Folate 8.17 ng/ml (>5.38) 01/20/23 08:50 Procalcitonin 0.71 ng/ml (0-0.5) H 01/18/23 14:58 Cortisol AM Sample 13.73 mcg/dl (6.2-22.6) 01/20/23 08:50 Urine Color Yellow 01/19/23 06:15 Urine Appearance Clear (Clear) 01/19/23 06:15 Urine pH 5.5 (4.5-7.5) 01/19/23 06:15 Ur Specific [place] <= 1.005 (1.000-1.030) 01/19/23 06:15 Urine Protein Negative (Negative) 01/19/23 06:15 Urine Glucose (UA) Negative (Negative) 01/19/23 06:15 Urine Ketones Negative (Negative) 01/19/23 06:15 Urine Blood Negative (Negative) 01/19/23 06:15 Urine Nitrite Negative (Negative) 01/19/23 06:15 Urine Bilirubin Negative (Negative) 01/19/23 06:15 Urine Urobilinogen Negative (Negative) 01/19/23 06:15 Ur Leukocyte Esterase Negative (Negative) 01/19/23 06:15 Nasal Screen MRSA (PCR) Positive (Negative) A 01/19/23 06:15 Vancomycin Trough 10.3 mcg/ml (10-20) 01/21/23 09:24 SARS-CoV-2, RNA, NAAT NEGATIVE (NEGATIVE) 01/18/23 16:49 Staphylococcus sp PCR DETECTED (NotDetected) A 01/18/23 15:13 Staph aureus (PCR) DETECTED (NotDetected) A 01/18/23 15:13 mecA/C & MREJ Resist Gene MRSA DETECTED (NotDetected) A* 01/18/23 15:13 Bld Cult ID Panel PCR See PCR Comment (NotDetected) 01/18/23 15:13 Impressions Chest X-Ray 01/18/23 14:44 XR chest 1V portable CLINICAL HISTORY: Sepsis. Non-small cell lung cancer. COMPARISON STUDY: Chest radiograph December 16, 2022. PET/CT November 05, 2022. FINDINGS: Right internal jugular [id number] remains in place. There is no pneumothorax or pleural effusion. Left lower lung airspace opacity has developed since chest radiograph December 16, 2022. There is persistent left midlung opacity which could reflect a treated lesion. There may be minimal right basilar opacity. IMPRESSION: 1. Interval development of left lower lung airspace opacity with possible right basilar opacity. The findings favor an infectious process. 2. Persistent left midlung opacity which may reflect a treated lesion or postobstructive change. ACT 112: Negative or not required by law. Electronically signed by: Jace Call M.D. 01/18/2023 3:[address] 01/18/23 17:04 CT OF THE CHEST WITHOUT IV CONTRAST CLINICAL HISTORY: Evaluate for pneumonia, effusion. Non-small cell lung cancer. COMPARISON STUDY: Treatment planning CT December 08, 2022 and PET/CT November 05, 2022. Chest radiograph performed earlier today. CT DOSE: 1010.83 mGy.cm TECHNIQUE: Axial images of the chest were obtained without IV contrast. Images were reviewed in the axial, sagittal, and coronal planes. IV contrast was not administered for this examination. Automated exposure control was utilized for the study. A dose lowering technique was utilized adhering to the principles of ALARA. FINDINGS: No pathologically enlarged thoracic lymph nodes are present. Prominent AP window lymph nodes have slightly decreased in size since PET/CT of November 05, 2022. The size of the heart is normal. There is no pericardial effusion. A right internal jugular [id number] is in place. There is no pneumothorax or pleural effusion. Extensive tree-in-bud nodules within the left lower lobe are noted. There are also tree-in-bud nodules within the lingula. Significant bronchial wall thickening is greater within the left lung. This also involves the left mainstem bronchus. Note is made of a cavitary focus within the left upper lobe which communicates within the left upper lobe bronchus. This measures 6.2 x 2.8 cm. This has decreased since treatment planning CT of December 08, 2022. Multifocal mucus plugging is present. There are minimal tree-in-bud nodules within the right lung. No suspicious lesions within the bony thorax are present. Punctate right renal calculus is incidentally noted. Upper abdomen is otherwise unremarkable. IMPRESSION: 1. Multifocal tree-in-bud nodules, most pronounced within the left lower lobe. Associated bronchial wall thickening and mucus plugging. The findings suggest an infectious process such as bronchiolitis/bronchopneumonia. 2. 6.2 x 2.8 cm cavitary left upper lobe focus which communicates with the left upper lobe bronchus. This has decreased in size since treatment planning CT of December 08, 2022 and may represent the primary neoplasm. Continued imaging follow-up is recommended to exclude residual viable tumor. 3. No pleural effusion. No pneumothorax. ACT 112: Negative or not required by law. Electronically signed by: Jace Call M.D. 01/18/2023 6:[address] 01/18/23 17:04 CT OF THE HEAD WITHOUT CONTRAST CLINICAL HISTORY: Confusion. COMPARISON STUDY: MRI of the brain October 14, 2022. TECHNIQUE: Helical axial images of the head were obtained without IV contrast. Automated exposure control was utilized for the study. A dose lowering technique was utilized adhering to the principles of ALARA. FINDINGS: No acute intracranial hemorrhage, midline shift or mass effect is present. The ventricular system is unremarkable. The basal cisterns are patent. No extra-axial collections are present. There are no findings to suggest acute dural sinus thrombosis or acute territorial infarct. No significant calvarial abnormalities are present. Visualized portions of the sinuses and mastoid air cells are clear. IMPRESSION: No acute intracranial findings. ACT 112: Negative or not required by law. Electronically signed by: Jace Call M.D. 01/18/2023 5:50 PM Foot X-Ray 01/18/23 17:43 XR foot LT 2V CLINICAL HISTORY: Left heel pain. COMPARISON: Left tibia and fibula radiographs August 22, 2019. FINDINGS: No fracture within the left foot is identified. Calcaneus is intact. No osseous lesion. 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 IMPRESSION: No left foot fracture. No calcaneal abnormality. ACT 112: Negative or not required by law. Electronically signed by: Jace Call M.D. 01/18/2023 6:27 PM (3) Pneumonia Laterality: bilateral Lung location: unspecified part of lung Pneumonia type: due to unspecified organism Qualified Code(s): J18.9 - Pneumonia, unspecified organism
[2023-01-21] MEDS ORDERED: PROCHLORPERAZINE MALEATE 10 MG TAB PO PRN (16:40)
[2023-01-21] MEDS ORDERED: oxyCODONE HCL IR 5 MG TAB (IMMEDIATE RELEASE) PO PRN (16:40)
[2023-01-21] MEDS ORDERED: BENZONATATE 100 MG CAPSULE PO PRN (16:40)
[2023-01-21] MEDS ORDERED: ALBUTEROL HFA 8 GM INHALER INH PRN (16:40)
[2023-01-21] MEDS: LACTATED RINGER'S 1,000 ML IV SCH (16:53)
[2023-01-21] MEDS ORDERED: ALBUT/IPRATROP 3MG/0.5MG NEB 3 ML VIAL INH SCH ×2 (17:00→23:00)
[2023-01-21] MEDS: VANCOMYCIN HCL 1,250 MG in SODIUM CHLORIDE 0.9% 250 ML IV SCH (18:11)
[2023-01-21] MEDS: ALBUT/IPRATROP 3MG/0.5MG NEB 3 ML VIAL INH SCH (19:45)
--- NOTE | 2023-01-21 20:00 | Operative Report (OR) ---
DATE OF PROCEDURE: 01/21/2023. PREOPERATIVE DIAGNOSIS: Infected [id number]-M-[id number]. POSTOPERATIVE DIAGNOSIS: Infected Vyoo-I-Qdmectpz. OPERATION: Removal of Exih-L-Lscwfcax on the right chest wall. SURGEON: Dontrell Comer MD. ANESTHESIA: Conscious sedation plus local. ESTIMATED BLOOD LOSS: About 3 mL. FINDINGS: Intact port and catheter to the tip of the catheter sent for culture. COMPLICATIONS: None. INDICATIONS FOR THE PROCEDURE: This is a 62-year-old gentleman who was admitted to the hospital for infected port. I recommend that we will remove the Lbjt-I-Tntrjdem and the sedation and local. I did talk to the patient about the benefit, risk, alternate procedure. I indicated the risks may include, but not limited, such as bleeding, infection, blood clot. The patient understands. He signed informed consent and I answered all questions. DETAILS OF PROCEDURE: After we identified the patient and verified the procedure, we brought the patient to the OR, put the patient in the supine position on the OR table. The patient received SCD on bilateral legs to prevent DVT. Also, the patient received 2 grams of cefepime IV for prophylactic antibiotic and the patient received conscious sedation by the anesthesiology. The patient's right upper chest wall and the right side of the neck was prepped and draped in routine sterile fashion. After the timeout, I injected the local anesthesia by using 1% lidocaine mixed with 0.5% Marcaine around the portal site and then by using a 15 blade, made a fishmouth incision to remove all the scar on the right upper chest wall. Then, dissection to subcutaneous layer reaches the port and removed the suture attached to the port and then we completely removed the port of catheter easily, pulled out the tip of catheter and was sent to culture. Hemostasis obtained, closed the 3-0 nylon interrupted. Then, we put the dressing on. The patient tolerated the procedure well. All instrument, needle and sponge counts were correct x2 at the end of the case. The patient was transferred to recovery room in stable condition. After the procedure, I did talk to the patient about the OR finding and the procedure we did. Also, I gave the patient postop care instruction, the patient understands. The tip of the catheter sent to culture. Job ID: [id number] [facility]
[2023-01-21] MEDS: MONTELUKAST SODIUM 10 MG TABLET PO SCH (21:23)
[2023-01-22] MEDS: VANCOMYCIN HCL 1,250 MG in SODIUM CHLORIDE 0.9% 250 ML IV SCH ×3 (01:56→17:22)
[2023-01-22] MEDS: oxyCODONE HCL IR 5 MG TAB (IMMEDIATE RELEASE) PO PRN ×3 (01:56→19:20)
[2023-01-22] MEDS: CEFEPIME 2,000 MG in SYRINGE 0 ML IV SCH ×2 (01:57→11:06)
[2023-01-22] MEDS: HEPARIN SOD 5,000 UNIT/0.5 ML VIAL SQ SCH ×3 (05:14→21:00)
[2023-01-22] MEDS: LACTATED RINGER'S 1,000 ML IV SCH (05:14)
[2023-01-22] MEDS: ALBUT/IPRATROP 3MG/0.5MG NEB 3 ML VIAL INH SCH (06:57)
[2023-01-22] MEDS: SODIUM CHLOR 7% 4 ML NEB NEB SCH (06:57)
[2023-01-22 07:10] LABS: Basophils # (auto) 0.01 K/uL (0-0.2); Basophils % (auto) 0.4 %; Eosinophils # (auto) 0.05 K/uL (0-0.50); Eosinophils % (auto) 1.9 %; Hematocrit (blood only) 23.5 % (42.0-52.0); Hemoglobin 7.7 g/dl (14.0-18.0); Immature Granulocytes # (auto) 0.02 K/uL (0.01-0.20); Immature Granulocytes % (auto) 0.7 %; Lymphocytes % (auto) 7.5 %; Mean Corpuscular Hemoglobin 28.7 pg (25.0-34.0); Mean Corpuscular Hgb Conc 32.8 g/dL (32.0-36.0); Mean Corpuscular Volume 87.7 fL (80.0-100.0); Monocytes # (auto) 0.33 K/uL (0.11-0.59); Monocytes % (auto) 12.4 %; Neutrophils # (auto) 2.06 K/uL (1.40-6.50); Neutrophils % (auto) 77.1 %; Platelet Count 72 K/uL (130-400); Platelet Estimate Decreased (Normal); RBC Morphology Unremarkable; RDW Coefficient of Variation 16.6 % (11.5-14.5); RDW Standard Deviation 52.4 fL (36.4-46.3); Red Blood Count 2.68 M/uL (4.70-6.10); White Blood Count 2.67 K/ul (4.8-10.8)
[2023-01-22 08:02] LABS: Albumin Level 2.4 gm/dl (3.4-5.0); BUN Creatinine Ratio 20.4 (10-20); Bilirubin,Total 0.3 mg/dl (0.2-1.0); Calcium 7.8 mg/dl (8.6-10.3); Creatinine Clr Calc Pharmacy 113.8 ml/min; Est GFR (African American) 130.4 ml/min; Est GFR (Non-African American) 112.5 ml/min; Globulin 2.5 gm/dl (2.5-4.0); Potassium 3.9 mmol/L (3.5-5.1); Total Protein 4.9 gm/dl (6.0-8.3)
[2023-01-22] MEDS: ADVANCED PROBIOTIC 1250 MG CAPSULE PO SCH (08:31)
[2023-01-22] MEDS: DOCUSATE SODIUM 100 MG CAP PO SCH ×2 (08:32→20:08)
[2023-01-22] MEDS: LORATADINE 10 MG TAB PO SCH (08:32)
[2023-01-22] MEDS: guaiFENesin 600 MG TABCR PO SCH ×2 (08:32→20:07)
[2023-01-22] MEDS: TAMSULOSIN HCL 0.4 MG CAP PO SCH (08:32)
[2023-01-22] MEDS: FERROUS SULFATE 325 MG TAB PO SCH ×2 (08:33→16:10)
[2023-01-22] MEDS: FAMOTIDINE 10 MG TABLET PO SCH ×2 (08:33→20:07)
[2023-01-22] MEDS: BACITRACIN OINT 15 GM TUBE EXT SCH ×2 (08:33→20:10)
[2023-01-22] MEDS: NYSTATIN SUSP 500,000 U/5 ML UDC PO SCH ×4 (08:34→20:06)
[2023-01-22] MEDS: SUCRALFATE 1 GM/10 ML UDC PO SCH ×4 (08:34→20:07)
[2023-01-22] MEDS ORDERED: predniSONE 20 MG TAB PO SCH (09:00)
[2023-01-22] MEDS ORDERED: VANCOMYCIN LEVEL ONE (09:30)
--- NOTE | 2023-01-22 10:35 | Pharmacy Report ---
Pharmacy PK ABX Note - Date of Service January 22, 2023 - Assessment and Plan Assessment 62 year old M receiving vancomycin/cefepime for treatment of bacteremia/pneumonia. Pertinent microbiologic data includes: Positive MRSA Nasal Swab, blood, sputum, and chest culture growing MRSA. Currently, EFRA reported as 2 - lab preforming dilution to establish EFRA. 01/22: * Day #4 of antimicrobial therapy. * Trough level was changed to random by lab. Level at 0615 this AM was 15.7 mcg/mL which correlates to a therapeutic AUC/EFRA. * Echo not ordered. Patient to have ID telehealth consult this morning. Likely can discontinue Cefepime at this point as repeat blood cultures from 01/20 have no growth to date. A port and repeat blood cultures from 01/21 are still pending. 01/21: * Day #3 of antimicrobial therapy * Vanc EFRA confirmed to be 2 via turbidity method. Recommended performing TTE to check for endocarditis. * Will continue with Vancomycin today. Trough was only 10.3 this AM but AUC dosing remains therapeutic with AUC/EFRA of 400-600. Per attending's note, patient is improving. To have port removed today. Plan Vancomycin * Current regimen: 1250 mg IV every 8 hours * Random level obtained 01/22/23 resulted as 15.7 mcg/mL. This is predicted to achieve target AUC/EFRA of 400-600 mg/L.hr * Continue 1250 mg IV every 8 hours * Predicted AUC at steady state: 542 mg/L.hr * Repeat trough level ordered for: 01/24/23 Pharmacy will continue to follow and will adjust dose/frequency as necessary. Thank you. Pharmacy has transitioned to AUC monitoring for vancomycin. AUC/EFRA is the preferred PK/PD target and is associated with decreased risk of nephrotoxicity compared to traditional trough targets.
--- NOTE | 2023-01-22 11:10 | Surgery Progress Note ---
Date of Service January 22, 2023 Assessment & Plan (1) Infected venous access port: Plan: pt is a 62 year-old male who was admitted to hospital for cough, new diagnosis- lung cancer, pt had Blood culture positive for Staphylococcus species. I was ask ed for consult for remove port-catheter. IMP: infected port-catheter, Plan, I recommend to remove the port-catheter under sedation + local, D/W benefits, risks and alternatives of the surgery, the risks - infection, bleeding, blood clot,pt understood, he agreed with the surgery, he signed informed consent, I answered all questions, pt had lunch today, NPO after MN, will remove the port-catheter tomorrow, 01/22/2023 11:07 AM F/U S/P remove port, POD 1 pt is doing fine, keep the dressing on for 4 days, he can take a shower on 01/26/2023, remove suture 2-3 weeks, F/U me 2-3 weeks for remove suture, or nurse can removed sutures, , Thanks, Admission and Anticipated Discharge Date Admission Date: January 18, 2023 Subjective Patient seen and examined at bedside. Comfortable, not in any distress. 01/22/2023 11:[address] Comer F/U S/P remove port, POD 1 pt is doing fine, no fever, Physical Exam Constitutional: WD/WN, vitals as above Eyes: PERRL, conjunctivae normal, anicteric sclerae Neck: trachea midline, no thyromegaly Respiratory: normal respiratory effort, lungs clear to auscultation Cardiovascular: RRR, no murmur, no edema Gastrointestinal (Abdomen): normal bowel sounds, soft, nontender, no hepatosplenomegaly Skin: anibal incision site intact, no redness, Neurologic: patellar DTR's 2+ bilat, sensation intact Psychiatric: A+Ox3, euthymic affect Results & Data Vital Signs (Past 12 Hours) Vital Signs Temp Pulse Pulse Resp BP Pulse Ox O2 Del Method 01/22/23 10:59 36.4 C L 98 H 18 99/66 L 98 Room Air 01/22/23 08:00 96 H 01/22/23 08:00 Room Air 01/22/23 06:59 36.8 C 82 19 96/64 L 98 Room Air 01/22/23 06:57 87 16 98 Room Air 01/22/23 05:08 36.4 C L 80 18 106/72 98 Room Air 01/22/23 00:00 96 H 01/21/23 23:43 36.8 C 96 H 18 97/64 L 96 Room Air Laboratory Results Abnormal lab results 01/22/23 01/22/23 Range/Units 06:15 07:07 WBC 2.67 L (4.8-10.8) K/ul RBC 2.68 L (4.70-6.10) M/uL Hgb 7.7 L (14.0-18.0) g/dl Hct 23.5 L (42.0-52.0) % RDW Std Deviation 52.4 H (36.4-46.3) fL RDW Coeff of Mathieu 16.6 H (11.5-14.5) % Plt Count 72 L (130-400) K/uL Lymph # (Auto) 0.20 L (1.2-3.4) K/uL Platelet Estimate Decreased L (Normal) Sodium 133 L (136-145) mmol/L Creatinine 0.54 L (0.6-1.4) mg/dl BUN/Creatinine Ratio 20.4 H (10-20) Calcium 7.8 L (8.6-10.3) mg/dl Total Protein 4.9 L (6.0-8.3) gm/dl Albumin 2.4 L (3.4-5.0) gm/dl
--- NOTE | 2023-01-22 15:55 | Hospitalist Progress Note ---
Date of Service January 22, 2023 Assessment & Plan (1) Bacteremia: (2) Infected venous access port: (3) Pneumonia: Plan: 62-year-old male with history of recently diagnosed lung cancer, status postchemotherapy and radiation therapy, History of smoking, etc. presenting with cough times few days, and episode of confusion/hallucination today. MRSA BACTEREMIA, PORT INFECTION BILATERAL LOWER LOBE PNEUMONIA LUNG CANCER, STATUS POSTCHEMOTHERAPY AND RADIATION Possible Sepsis, POA possibly due to a combination of pneumonia and infusaport CT chest: 1. Multifocal tree-in-bud nodules, most pronounced within the left lower lobe. Associated bronchial wall thickening and mucus plugging. The findings suggest an infectious process such as bronchiolitis/bronchopneumonia. 2. 6.2 x 2.8 cm cavitary left upper lobe focus which communicates with the left upper lobe bronchus. This has decreased in size since treatment planning CT of December 08, 2022 and may represent the primary neoplasm. Continued imaging follow-up is recommended to exclude residual viable tumor. 3. No pleural effusion. No pneumothorax. Sputum culture: MRSA Blood cultures: Positive MRSA Repeat blood cultures: No growth in 48 hours Transthoracic echocardiogram done; no evidence of vegetation Patient underwent removal of Port-A-Cath on January 21 by general surgery Discussed with infectious disease(Dr. Mercado); will have PICC line placed t omorrow. Discussed with pharmacy regarding dosing of vancomycin till February 04; recommended current dose to maintain vancomycin trough level 15-20. Will need weekly CBC, BMP and vancomycin trough while on treatment. RADIATION DERMATITIS,MRSA CELLULITIS, LEFT UPPER CHEST/NECK REGION On vancomycin IV Wound care consulted ORAL CANDIDIASIS Nystatin HYPOTENSION Secondary to poor intake given IV fluids cortisol level ok BP improved EPISODES OF HALLUCINATIONS, CONFUSION? Possible encephalopathy, metabolic secondary to #1 CT head: No acute process Patient back to baseline mental status Pancytopenia due to Antineoplastic chemotherapy Labs personally reviewed; CBC stable. No signs of bleeding DVT prophylaxis heparin subcutaneous Disposition Lives at home with family; await results of repeat blood culture. Discharged home with home health for antibiotics Please note the above document was generated using voice recognition software. It may contain grammatical, syntax or spelling errors. Any formal questions or concerns about the content, text or information contained within the body of this dictation should be directly addressed to the provider for clarification Time spent evaluating patient, direct bedside care, chart review, placing orders, interpretation of diagnostic studies, discussion with consultants, patient, and family members, as well as other required patient management activities is 55 minutes Admission and Anticipated Discharge Date Admission Date: January 18, 2023 Subjective Patient seen and examined at bedside. He is comfortably lying in the bed; not in distress. He denies any fever or chills. Is saturating well on room air Review of Systems Review of Systems: All systems reviewed & are unremarkable except as noted in Subjective Physical Exam Physical Exam: General- oriented x 3, not in distress, speaks in sentences with no effort or accessory muscle use Eyes- anicteric Neck- no JVD Lungs-mild crackles bilateral bases No wheezing Chest- port a cath on right upper chest. Heart- normal rate, regular rhythm; no murmurs Moderate erythema on the right upper chest wall/neck area Abdomen- normal bowel sounds, nondistended, soft, no tenderness Extremities- no pretibial edema, no calf tenderness Neuro- alert, oriented x 3; no gross focal neurologic deficits Skin- warm & dry Results & Data Results & Data Vital Signs (Past 12 Hours) Vital Signs Temp Pulse Pulse Resp BP Pulse Ox O2 Del Method 01/22/23 15:34 36.8 C 81 19 98/58 L 98 Room Air 01/22/23 10:59 36.4 C L 98 H 18 99/66 L 98 Room Air 01/22/23 08:00 96 H 01/22/23 08:00 Room Air 01/22/23 06:59 36.8 C 82 19 96/64 L 98 Room Air 01/22/23 06:57 87 16 98 Room Air 01/22/23 05:08 36.4 C L 80 18 106/72 98 Room Air Laboratory Results Laboratory Results WBC 2.67 K/ul (4.8-10.8) L 01/22/23 06:15 RBC 2.68 M/uL (4.70-6.10) L 01/22/23 06:15 Hgb 7.7 g/dl (14.0-18.0) L 01/22/23 06:15 Hct 23.5 % (42.0-52.0) L 01/22/23 06:15 MCV 87.7 fL (80.0-100.0) 01/22/23 06:15 MCH 28.7 pg (25.0-34.0) 01/22/23 06:15 MCHC 32.8 g/dL (32.0-36.0) 01/22/23 06:15 RDW Std Deviation 52.4 fL (36.4-46.3) H 01/22/23 06:15 RDW Coeff of Mathieu 16.6 % (11.5-14.5) H 01/22/23 06:15 Plt Count 72 K/uL (130-400) L 01/22/23 06:15 MPV 10.0 fL (9.4-12.4) 01/22/23 06:15 Immature Gran % (Auto) 0.7 % 01/22/23 06:15 Neut % (Auto) 77.1 % 01/22/23 06:15 Lymph % (Auto) 7.5 % 01/22/23 06:15 [place] % (Auto) 12.4 % 01/22/23 06:15 Eos % (Auto) 1.9 % 01/22/23 06:15 Baso % (Auto) 0.4 % 01/22/23 06:15 Neut # (Auto) 2.06 K/uL (1.40-6.50) 01/22/23 06:15 Lymph # (Auto) 0.20 K/uL (1.2-3.4) L 01/22/23 06:15 [place] # (Auto) 0.33 K/uL (0.11-0.59) 01/22/23 06:15 Eos # (Auto) 0.05 K/uL (0-0.50) 01/22/23 06:15 Baso # (Auto) 0.01 K/uL (0-0.2) 01/22/23 06:15 Immature Gran # (Auto) 0.02 K/uL (0.01-0.20) 01/22/23 06:15 Toxic Granulation 1+ 01/21/23 05:26 Platelet Estimate Decreased (Normal) L 01/22/23 06:15 RBC Morphology Unremarkable 01/22/23 06:15 PT 11.3 Seconds (9.0-12.0) 01/18/23 14:58 INR 1.1 (0.9-1.1) 01/18/23 14:58 APTT 33.6 Seconds (21.0-31.0) H 01/18/23 14:58 PTT Ratio 1.2 01/18/23 14:58 VBG pH 7.41 (7.36-7.41) 01/18/23 15:13 VBG pCO2 41 mmHg (38-50) 01/18/23 15:13 VBG pO2 17 mmHg 01/18/23 15:13 VBG HCO3 26 mmol/L 01/18/23 15:13 VBG O2 Saturation < 60.0 % 01/18/23 15:13 VBG Base Excess 1.2 mEq/L 01/18/23 15:13 Sodium 133 mmol/L (136-145) L 01/22/23 07:07 Potassium 3.9 mmol/L (3.5-5.1) 01/22/23 07:07 Chloride 102 mmol/L (98-107) 01/22/23 07:07 Carbon Dioxide 27 mmol/L (21-32) 01/22/23 07:07 Anion Gap 4 (3-11) 01/22/23 07:07 BUN 11 mg/dl (6-23) 01/22/23 07:07 Creatinine 0.54 mg/dl (0.6-1.4) L 01/22/23 07:07 Est Cr Clr Drug Dosing 113.8 ml/min 01/22/23 07:07 Est GFR ( Amer) 130.4 ml/min 01/22/23 07:07 Est GFR (Non-Af Amer) 112.5 ml/min 01/22/23 07:07 BUN/Creatinine Ratio 20.4 (10-20) H 01/22/23 07:07 Glucose 98 mg/dl (70-99(Fasting)) 01/22/23 07:07 Lactate 1.5 mmol/L (0.4-2.0) 01/18/23 14:58 Calcium 7.8 mg/dl (8.6-10.3) L 01/22/23 07:07 Magnesium 2.1 mg/dl (1.7-2.4) 01/18/23 14:58 Iron 19 mcg/dl (35-175) L 01/20/23 08:50 Total Bilirubin 0.3 mg/dl (0.2-1.0) 01/22/23 07:07 Direct Bilirubin 0.2 mg/dl (0-0.2) 01/18/23 14:58 AST 15 U/L (13-39) 01/22/23 07:07 ALT 16 U/L (7-52) 01/22/23 07:07 Alkaline Phosphatase 55 U/L (34-104) 01/22/23 07:07 Ammonia 17.0 umol/L (18-72) L 01/18/23 14:58 Troponin I High Sens 12.6 pg/ml (0-20) 01/18/23 14:58 Total Protein 4.9 gm/dl (6.0-8.3) L 01/22/23 07:07 Albumin 2.4 gm/dl (3.4-5.0) L 01/22/23 07:07 Globulin 2.5 gm/dl (2.5-4.0) 01/22/23 07:07 Albumin/Globulin Ratio 1.0 (0.9-2) 01/22/23 07:07 Vitamin B12 512 pg/ml (180-914) 01/20/23 08:50 Folate 8.17 ng/ml (>5.38) 01/20/23 08:50 Procalcitonin 0.71 ng/ml (0-0.5) H 01/18/23 14:58 Cortisol AM Sample 13.73 mcg/dl (6.2-22.6) 01/20/23 08:50 Urine Color Yellow 01/19/23 06:15 Urine Appearance Clear (Clear) 01/19/23 06:15 Urine pH 5.5 (4.5-7.5) 01/19/23 06:15 Ur Specific [place] <= 1.005 (1.000-1.030) 01/19/23 06:15 Urine Protein Negative (Negative) 01/19/23 06:15 Urine Glucose (UA) Negative (Negative) 01/19/23 06:15 Urine Ketones Negative (Negative) 01/19/23 06:15 Urine Blood Negative (Negative) 01/19/23 06:15 Urine Nitrite Negative (Negative) 01/19/23 06:15 Urine Bilirubin Negative (Negative) 01/19/23 06:15 Urine Urobilinogen Negative (Negative) 01/19/23 06:15 Ur Leukocyte Esterase Negative (Negative) 01/19/23 06:15 Nasal Screen MRSA (PCR) Positive (Negative) A 01/19/23 06:15 Vancomycin Trough 11.3 mcg/ml (10-20) 01/22/23 11:01 SARS-CoV-2, RNA, NAAT NEGATIVE (NEGATIVE) 01/18/23 16:49 Staphylococcus sp PCR DETECTED (NotDetected) A 01/18/23 15:13 Staph aureus (PCR) DETECTED (NotDetected) A 01/18/23 15:13 mecA/C & MREJ Resist Gene MRSA DETECTED (NotDetected) A* 01/18/23 15:13 Bld Cult ID Panel PCR See PCR Comment (NotDetected) 01/18/23 15:13 Impressions Chest X-Ray 01/18/23 14:44 XR chest 1V portable CLINICAL HISTORY: Sepsis. Non-small cell lung cancer. COMPARISON STUDY: Chest radiograph December 16, 2022. PET/CT November 05, 2022. FINDINGS: Right internal jugular Ipxsbq-m-Ijbf remains in place. There is no pneumothorax or pleural effusion. Left lower lung airspace opacity has developed since chest radiograph December 16, 2022. There is persistent left midlung opacity which could reflect a treated lesion. There may be minimal right basilar opacity. IMPRESSION: 1. Interval development of left lower lung airspace opacity with possible right basilar opacity. The findings favor an infectious process. 2. Persistent left midlung opacity which may reflect a treated lesion or postobstructive change. ACT 112: Negative or not required by law. Electronically signed by: Jace Call M.D. 01/18/2023 3:[address] 01/18/23 17:04 CT OF THE CHEST WITHOUT IV CONTRAST CLINICAL HISTORY: Evaluate for pneumonia, effusion. Non-small cell lung cancer. COMPARISON STUDY: Treatment planning CT December 08, 2022 and PET/CT November 05, 2022. Chest radiograph performed earlier today. CT DOSE: 1010.83 mGy.cm TECHNIQUE: Axial images of the chest were obtained without IV contrast. Images were reviewed in the axial, sagittal, and coronal planes. IV contrast was not administered for this examination. Automated exposure control was utilized for the study. A dose lowering technique was utilized adhering to the principles of ALARA. FINDINGS: No pathologically enlarged thoracic lymph nodes are present. Prominent AP window lymph nodes have slightly decreased in size since PET/CT of November 05, 2022. The size of the heart is normal. There is no pericardial effusion. A right internal jugular [id number]-Ibxt is in place. There is no pneumothorax or pleural effusion. Extensive tree-in-bud nodules within the left lower lobe are noted. There are also tree-in-bud nodules within the lingula. Significant bronchial wall thickening is greater within the left lung. This also involves the left mainstem bronchus. Note is made of a cavitary focus within the left upper lobe which communicates within the left upper lobe bronchus. This measures 6.2 x 2.8 cm. This has decreased since treatment planning CT of December 08, 2022. Multifocal mucus plugging is present. There are minimal tree-in-bud nodules within the right lung. No suspicious lesions within the bony thorax are present. Punctate right renal calculus is incidentally noted. Upper abdomen is otherwise unremarkable. IMPRESSION: 1. Multifocal tree-in-bud nodules, most pronounced within the left lower lobe. Associated bronchial wall thickening and mucus plugging. The findings suggest an infectious process such as bronchiolitis/bronchopneumonia. 2. 6.2 x 2.8 cm cavitary left upper lobe focus which communicates with the left upper lobe bronchus. This has decreased in size since treatment planning CT of December 08, 2022 and may represent the primary neoplasm. Continued imaging follow-up is recommended to exclude residual viable tumor. 3. No pleural effusion. No pneumothorax. ACT 112: Negative or not required by law. Electronically signed by: Jace Call M.D. 01/18/2023 6:[address] 01/18/23 17:04 CT OF THE HEAD WITHOUT CONTRAST CLINICAL HISTORY: Confusion. COMPARISON STUDY: MRI of the brain October 14, 2022. TECHNIQUE: Helical axial images of the head were obtained without IV contrast. Automated exposure control was utilized for the study. A dose lowering technique was utilized adhering to the principles of ALARA. FINDINGS: No acute intracranial hemorrhage, midline shift or mass effect is present. The ventricular system is unremarkable. The basal cisterns are patent. No extra-axial collections are present. There are no findings to suggest acute dural sinus thrombosis or acute territorial infarct. No significant calvarial abnormalities are present. Visualized portions of the sinuses and mastoid air cells are clear. IMPRESSION: No acute intracranial findings. ACT 112: Negative or not required by law. Electronically signed by: Jace Call M.D. 01/18/2023 5:50 PM Foot X-Ray 01/18/23 17:43 XR foot LT 2V CLINICAL HISTORY: Left heel pain. COMPARISON: Left tibia and fibula radiographs August 22, 2019. FINDINGS: No fracture within the left foot is identified. Calcaneus is intact. No osseous lesion. 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 IMPRESSION: No left foot fracture. No calcaneal abnormality. ACT 112: Negative or not required by law. Electronically signed by: Jace Call M.D. 01/18/2023 6:27 PM (3) Pneumonia Laterality: bilateral Lung location: unspecified part of lung Pneumonia type: due to unspecified organism Qualified Code(s): J18.9 - Pneumonia, unspecified organism
[2023-01-22] MEDS: MONTELUKAST SODIUM 10 MG TABLET PO SCH (20:07)
[2023-01-23] MEDS: VANCOMYCIN HCL 1,250 MG in SODIUM CHLORIDE 0.9% 250 ML IV SCH ×3 (02:46→21:13)
[2023-01-23] MEDS: HEPARIN SOD 5,000 UNIT/0.5 ML VIAL SQ SCH ×3 (06:06→21:00)
[2023-01-23] MEDS: oxyCODONE HCL IR 5 MG TAB (IMMEDIATE RELEASE) PO PRN ×4 (06:23→20:14)
[2023-01-23 06:32] LABS: Basophils # (auto) 0.02 K/uL (0-0.2); Basophils % (auto) 0.6 %; Eosinophils # (auto) 0.07 K/uL (0-0.50); Eosinophils % (auto) 2.1 %; Immature Granulocytes # (auto) 0.03 K/uL (0.01-0.20); Immature Granulocytes % (auto) 0.9 %; Lymphocytes # (auto) 0.22 K/uL (1.2-3.4); Lymphocytes % (auto) 6.5 %; Mean Corpuscular Hemoglobin 28.5 pg (25.0-34.0); Mean Platelet Volume 9.9 fL (9.4-12.4); Monocytes # (auto) 0.34 K/uL (0.11-0.59); Monocytes % (auto) 10.1 %; Neutrophils # (auto) 2.69 K/uL (1.40-6.50); Neutrophils % (auto) 79.8 %; Platelet Count 111 K/uL (130-400); RDW Coefficient of Variation 16.8 % (11.5-14.5); RDW Standard Deviation 53.4 fL (36.4-46.3); Red Blood Count 2.81 M/uL (4.70-6.10); White Blood Count 3.37 K/ul (4.8-10.8)
[2023-01-23 06:52] LABS: Albumin Level 2.8 gm/dl (3.4-5.0); BUN Creatinine Ratio 20.6 (10-20); Bilirubin,Total 0.2 mg/dl (0.2-1.0); Calcium 8.3 mg/dl (8.6-10.3); Est GFR (African American) 118.6 ml/min; Est GFR (Non-African American) 102.4 ml/min; Globulin 2.8 gm/dl (2.5-4.0); Potassium 4.1 mmol/L (3.5-5.1); Total Protein 5.6 gm/dl (6.0-8.3)
[2023-01-23] MEDS: FERROUS SULFATE 325 MG TAB PO SCH ×2 (08:25→16:45)
[2023-01-23] MEDS: FAMOTIDINE 10 MG TABLET PO SCH ×2 (09:53→20:12)
[2023-01-23] MEDS: guaiFENesin 600 MG TABCR PO SCH ×2 (09:53→20:12)
[2023-01-23] MEDS: DOCUSATE SODIUM 100 MG CAP PO SCH ×2 (09:53→20:12)
[2023-01-23] MEDS: ADVANCED PROBIOTIC 1250 MG CAPSULE PO SCH (09:54)
[2023-01-23] MEDS: NYSTATIN SUSP 500,000 U/5 ML UDC PO SCH ×4 (09:54→20:10)
[2023-01-23] MEDS: SUCRALFATE 1 GM/10 ML UDC PO SCH ×4 (09:54→20:10)
[2023-01-23] MEDS: LORATADINE 10 MG TAB PO SCH (09:54)
[2023-01-23] MEDS: TAMSULOSIN HCL 0.4 MG CAP PO SCH (09:55)
[2023-01-23] MEDS: BACITRACIN OINT 15 GM TUBE EXT SCH ×2 (09:55→20:13)
--- NOTE | 2023-01-23 15:19 | Hospitalist Progress Note ---
Date of Service January 23, 2023 Assessment & Plan (1) Bacteremia: (2) Infected venous access port: (3) Pneumonia: Plan: 62-year-old male with history of recently diagnosed lung cancer, status postchemotherapy and radiation therapy, History of smoking, etc. presenting with cough times few days, and episode of confusion/hallucination today. MRSA BACTEREMIA, PORT INFECTION BILATERAL LOWER LOBE PNEUMONIA LUNG CANCER, STATUS POSTCHEMOTHERAPY AND RADIATION Possible Sepsis, POA possibly due to a combination of pneumonia and infusaport CT chest: 1. Multifocal tree-in-bud nodules, most pronounced within the left lower lobe. Associated bronchial wall thickening and mucus plugging. The findings suggest an infectious process such as bronchiolitis/bronchopneumonia. 2. 6.2 x 2.8 cm cavitary left upper lobe focus which communicates with the left upper lobe bronchus. This has decreased in size since treatment planning CT of December 08, 2022 and may represent the primary neoplasm. Continued imaging follow-up is recommended to exclude residual viable tumor. 3. No pleural effusion. No pneumothorax. Sputum culture: MRSA Blood cultures: Positive MRSA Repeat blood culture reviewed: No growth in 48 hours Transthoracic echocardiogram done; no evidence of vegetation Patient underwent removal of Port-A-Cath on January 21 by general surgery Discussed with infectious disease(Dr. Mercado); PICC line placed on January 23. Discussed with pharmacy regarding dosing of vancomycin till February 04; recommended current dose to maintain vancomycin trough level 15-20. Will need weekly CBC, BMP and vancomycin trough while on treatment. Discussed with case management for arrangement of home health. RADIATION DERMATITIS,MRSA CELLULITIS, LEFT UPPER CHEST/NECK REGION Will place silver sulfadiazine over the wound ORAL CANDIDIASIS Nystatin HYPOTENSION Secondary to poor intake given IV fluids cortisol level ok BP improved EPISODES OF HALLUCINATIONS, CONFUSION? Possible encephalopathy, metabolic secondary to #1 CT head: No acute process Patient back to baseline mental status Pancytopenia due to Antineoplastic chemotherapy Labs personally reviewed; CBC stable. No signs of bleeding DVT prophylaxis heparin subcutaneous Disposition To discharge home tomorrow a.m. Home health is set up; patient to start receiving antibiotic starting tomorrow. Please note the above document was generated using voice recognition software. It may contain grammatical, syntax or spelling errors. Any formal questions or concerns about the content, text or information contained within the body of this dictation should be directly addressed to the provider for clarification Time spent evaluating patient, direct bedside care, chart review, placing orders, interpretation of diagnostic studies, discussion with consultants, patient, and family members, as well as other required patient management activities is 50 minutes Admission and Anticipated Discharge Date Admission Date: January 18, 2023 Subjective Patient seen and examined at bedside. He is comfortably sitting up on the bed; not in distress. No episode of fever or chills. Review of Systems Review of Systems: All systems reviewed & are unremarkable except as noted in Subjective Physical Exam Physical Exam: General- oriented x 3, not in distress, speaks in sentences with no effort or accessory muscle use Eyes- anicteric Neck- no JVD Lungs-bilateral clear breath sound. Chest-bandaged over Port-A-Cath site removal clean dry and intact. Heart- normal rate, regular rhythm; no murmurs Moderate erythema on the right upper chest wall/neck area Abdomen- normal bowel sounds, nondistended, soft, no tenderness Extremities- no pretibial edema, no calf tenderness Neuro- alert, oriented x 3; no gross focal neurologic deficits Skin- warm & dry Results & Data Results & Data Vital Signs (Past 12 Hours) Vital Signs Temp Pulse Pulse Resp BP Pulse Ox O2 Del Method 01/23/23 11:36 35.8 C L 144 H 16 111/76 99 Room Air 01/23/23 08:00 87 01/23/23 08:00 Room Air 01/23/23 07:19 36.8 C 90 16 96/66 L 95 Room Air Laboratory Results Laboratory Results WBC 3.37 K/ul (4.8-10.8) L 01/23/23 06:13 RBC 2.81 M/uL (4.70-6.10) L 01/23/23 06:13 Hgb 8.0 g/dl (14.0-18.0) L 01/23/23 06:13 Hct 25.0 % (42.0-52.0) L 01/23/23 06:13 MCV 89.0 fL (80.0-100.0) 01/23/23 06:13 MCH 28.5 pg (25.0-34.0) 01/23/23 06:13 MCHC 32.0 g/dL (32.0-36.0) 01/23/23 06:13 RDW Std Deviation 53.4 fL (36.4-46.3) H 01/23/23 06:13 RDW Coeff of Mathieu 16.8 % (11.5-14.5) H 01/23/23 06:13 Plt Count 111 K/uL (130-400) L D 01/23/23 06:13 MPV 9.9 fL (9.4-12.4) 01/23/23 06:13 Immature Gran % (Auto) 0.9 % 01/23/23 06:13 Neut % (Auto) 79.8 % 01/23/23 06:13 Lymph % (Auto) 6.5 % 01/23/23 06:13 Loíza % (Auto) 10.1 % 01/23/23 06:13 Eos % (Auto) 2.1 % 01/23/23 06:13 Baso % (Auto) 0.6 % 01/23/23 06:13 Neut # (Auto) 2.69 K/uL (1.40-6.50) 01/23/23 06:13 Lymph # (Auto) 0.22 K/uL (1.2-3.4) L 01/23/23 06:13 [place] # (Auto) 0.34 K/uL (0.11-0.59) 01/23/23 06:13 Eos # (Auto) 0.07 K/uL (0-0.50) 01/23/23 06:13 Baso # (Auto) 0.02 K/uL (0-0.2) 01/23/23 06:13 Immature Gran # (Auto) 0.03 K/uL (0.01-0.20) 01/23/23 06:13 Toxic Granulation 1+ 01/21/23 05:26 Platelet Estimate Decreased (Normal) L 01/22/23 06:15 RBC Morphology Unremarkable 01/22/23 06:15 PT 11.3 Seconds (9.0-12.0) 01/18/23 14:58 INR 1.1 (0.9-1.1) 01/18/23 14:58 APTT 33.6 Seconds (21.0-31.0) H 01/18/23 14:58 PTT Ratio 1.2 01/18/23 14:58 VBG pH 7.41 (7.36-7.41) 01/18/23 15:13 VBG pCO2 41 mmHg (38-50) 01/18/23 15:13 VBG pO2 17 mmHg 01/18/23 15:13 VBG HCO3 26 mmol/L 01/18/23 15:13 VBG O2 Saturation < 60.0 % 01/18/23 15:13 VBG Base Excess 1.2 mEq/L 01/18/23 15:13 Sodium 134 mmol/L (136-145) L 01/23/23 06:13 Potassium 4.1 mmol/L (3.5-5.1) 01/23/23 06:13 Chloride 101 mmol/L (98-107) 01/23/23 06:13 Carbon Dioxide 27 mmol/L (21-32) 01/23/23 06:13 Anion Gap 6 (3-11) 01/23/23 06:13 BUN 14 mg/dl (6-23) 01/23/23 06:13 Creatinine 0.68 mg/dl (0.6-1.4) 01/23/23 06:13 Est Cr Clr Drug Dosing 93.0 ml/min 01/23/23 06:13 Est GFR ( Amer) 118.6 ml/min 01/23/23 06:13 Est GFR (Non-Af Amer) 102.4 ml/min 01/23/23 06:13 BUN/Creatinine Ratio 20.6 (10-20) H 01/23/23 06:13 Glucose 105 mg/dl (70-99(Fasting)) H 01/23/23 06:13 Lactate 1.5 mmol/L (0.4-2.0) 01/18/23 14:58 Calcium 8.3 mg/dl (8.6-10.3) L 01/23/23 06:13 Magnesium 2.1 mg/dl (1.7-2.4) 01/18/23 14:58 Iron 19 mcg/dl (35-175) L 01/20/23 08:50 Total Bilirubin 0.2 mg/dl (0.2-1.0) 01/23/23 06:13 Direct Bilirubin 0.2 mg/dl (0-0.2) 01/18/23 14:58 AST 15 U/L (13-39) 01/23/23 06:13 ALT 17 U/L (7-52) 01/23/23 06:13 Alkaline Phosphatase 69 U/L (34-104) 01/23/23 06:13 Ammonia 17.0 umol/L (18-72) L 01/18/23 14:58 Troponin I High Sens 12.6 pg/ml (0-20) 01/18/23 14:58 Total Protein 5.6 gm/dl (6.0-8.3) L 01/23/23 06:13 Albumin 2.8 gm/dl (3.4-5.0) L 01/23/23 06:13 Globulin 2.8 gm/dl (2.5-4.0) 01/23/23 06:13 Albumin/Globulin Ratio 1.0 (0.9-2) 01/23/23 06:13 Vitamin B12 512 pg/ml (180-914) 01/20/23 08:50 Folate 8.17 ng/ml (>5.38) 01/20/23 08:50 Procalcitonin 0.71 ng/ml (0-0.5) H 01/18/23 14:58 Cortisol AM Sample 13.73 mcg/dl (6.2-22.6) 01/20/23 08:50 Urine Color Yellow 01/19/23 06:15 Urine Appearance Clear (Clear) 01/19/23 06:15 Urine pH 5.5 (4.5-7.5) 01/19/23 06:15 Ur Specific [place] <= 1.005 (1.000-1.030) 01/19/23 06:15 Urine Protein Negative (Negative) 01/19/23 06:15 Urine Glucose (UA) Negative (Negative) 01/19/23 06:15 Urine Ketones Negative (Negative) 01/19/23 06:15 Urine Blood Negative (Negative) 01/19/23 06:15 Urine Nitrite Negative (Negative) 01/19/23 06:15 Urine Bilirubin Negative (Negative) 01/19/23 06:15 Urine Urobilinogen Negative (Negative) 01/19/23 06:15 Ur Leukocyte Esterase Negative (Negative) 01/19/23 06:15 Nasal Screen MRSA (PCR) Positive (Negative) A 01/19/23 06:15 Vancomycin Trough 11.3 mcg/ml (10-20) 01/22/23 11:01 SARS-CoV-2, RNA, NAAT NEGATIVE (NEGATIVE) 01/18/23 16:49 Staphylococcus sp PCR DETECTED (NotDetected) A 01/18/23 15:13 Staph aureus (PCR) DETECTED (NotDetected) A 01/18/23 15:13 mecA/C & MREJ Resist Gene MRSA DETECTED (NotDetected) A* 01/18/23 15:13 Bld Cult ID Panel PCR See PCR Comment (NotDetected) 01/18/23 15:13 Impressions Chest X-Ray 01/18/23 14:44 XR chest 1V portable CLINICAL HISTORY: Sepsis. Non-small cell lung cancer. COMPARISON STUDY: Chest radiograph December 16, 2022. PET/CT November 05, 2022. FINDINGS: Right internal jugular [id number] remains in place. There is no pneumothorax or pleural effusion. Left lower lung airspace opacity has developed since chest radiograph December 16, 2022. There is persistent left midlung opacity which could reflect a treated lesion. There may be minimal right basilar opacity. IMPRESSION: 1. Interval development of left lower lung airspace opacity with possible right basilar opacity. The findings favor an infectious process. 2. Persistent left midlung opacity which may reflect a treated lesion or postobstructive change. ACT 112: Negative or not required by law. Electronically signed by: Jace Call M.D. 01/18/2023 3:[address] 01/18/23 17:04 CT OF THE CHEST WITHOUT IV CONTRAST CLINICAL HISTORY: Evaluate for pneumonia, effusion. Non-small cell lung cancer. COMPARISON STUDY: Treatment planning CT December 08, 2022 and PET/CT November 05, 2022. Chest radiograph performed earlier today. CT DOSE: 1010.83 mGy.cm TECHNIQUE: Axial images of the chest were obtained without IV contrast. Images were reviewed in the axial, sagittal, and coronal planes. IV contrast was not administered for this examination. Automated exposure control was utilized for the study. A dose lowering technique was utilized adhering to the principles of ALARA. FINDINGS: No pathologically enlarged thoracic lymph nodes are present. Prominent AP window lymph nodes have slightly decreased in size since PET/CT of November 05, 2022. The size of the heart is normal. There is no pericardial effusion. A right internal jugular [id number] is in place. There is no pneumothorax or pleural effusion. Extensive tree-in-bud nodules within the left lower lobe are noted. There are also tree-in-bud nodules within the lingula. Significant bronchial wall thickening is greater within the left lung. This also involves the left mainstem bronchus. Note is made of a cavitary focus within the left upper lobe which communicates within the left upper lobe bronchus. This measures 6.2 x 2.8 cm. This has decreased since treatment planning CT of December 08, 2022. Multifocal mucus plugging is present. There are minimal tree-in-bud nodules within the right lung. No suspicious lesions within the bony thorax are present. Punctate right renal calculus is incidentally noted. Upper abdomen is otherwise unremarkable. IMPRESSION: 1. Multifocal tree-in-bud nodules, most pronounced within the left lower lobe. Associated bronchial wall thickening and mucus plugging. The findings suggest an infectious process such as bronchiolitis/bronchopneumonia. 2. 6.2 x 2.8 cm cavitary left upper lobe focus which communicates with the left upper lobe bronchus. This has decreased in size since treatment planning CT of December 08, 2022 and may represent the primary neoplasm. Continued imaging follow-up is recommended to exclude residual viable tumor. 3. No pleural effusion. No pneumothorax. ACT 112: Negative or not required by law. Electronically signed by: Jace Call M.D. 01/18/2023 6:[address] 01/18/23 17:04 CT OF THE HEAD WITHOUT CONTRAST CLINICAL HISTORY: Confusion. COMPARISON STUDY: MRI of the brain October 14, 2022. TECHNIQUE: Helical axial images of the head were obtained without IV contrast. Automated exposure control was utilized for the study. A dose lowering technique was utilized adhering to the principles of ALARA. FINDINGS: No acute intracranial hemorrhage, midline shift or mass effect is present. The ventricular system is unremarkable. The basal cisterns are patent. No extra-axial collections are present. There are no findings to suggest acute dural sinus thrombosis or acute territorial infarct. No significant calvarial abnormalities are present. Visualized portions of the sinuses and mastoid air cells are clear. IMPRESSION: No acute intracranial findings. ACT 112: Negative or not required by law. Electronically signed by: Jace Call M.D. 01/18/2023 5:50 PM Foot X-Ray 01/18/23 17:43 XR foot LT 2V CLINICAL HISTORY: Left heel pain. COMPARISON: Left tibia and fibula radiographs August 22, 2019. FINDINGS: No fracture within the left foot is identified. Calcaneus is intact. No osseous lesion. 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 IMPRESSION: No left foot fracture. No calcaneal abnormality. ACT 112: Negative or not required by law. Electronically signed by: Jace Call M.D. 01/18/2023 6:27 PM (3) Pneumonia Laterality: bilateral Lung location: unspecified part of lung Pneumonia type: due to unspecified organism Qualified Code(s): J18.9 - Pneumonia, unspecified organism
[2023-01-23] MEDS: SILVER SULFADIAZINE 1% CR 50 GM JAR EXT SCH (16:44)
[2023-01-23] MEDS: MONTELUKAST SODIUM 10 MG TABLET PO SCH (20:12)
[2023-01-24] MEDS ORDERED: VANCOMYCIN LEVEL ONE (05:30)
[2023-01-24] MEDS: VANCOMYCIN HCL 1,250 MG in SODIUM CHLORIDE 0.9% 250 ML IV SCH (05:37)
[2023-01-24] MEDS: HEPARIN SOD 5,000 UNIT/0.5 ML VIAL SQ SCH (05:38)
[2023-01-24] MEDS: oxyCODONE HCL IR 5 MG TAB (IMMEDIATE RELEASE) PO PRN (05:42)
[2023-01-24 06:34] LABS: Basophils # (auto) 0.01 K/uL (0-0.2); Basophils % (auto) 0.5 %; Eosinophils # (auto) 0.06 K/uL (0-0.50); Hematocrit (blood only) 23.1 % (42.0-52.0); Hemoglobin 7.5 g/dl (14.0-18.0); Immature Granulocytes # (auto) 0.09 K/uL (0.01-0.20); Immature Granulocytes % (auto) 4.4 %; Lymphocytes # (auto) 0.21 K/uL (1.2-3.4); Lymphocytes % (auto) 10.3 %; Mean Corpuscular Hemoglobin 28.3 pg (25.0-34.0); Mean Corpuscular Hgb Conc 32.5 g/dL (32.0-36.0); Mean Corpuscular Volume 87.2 fL (80.0-100.0); Mean Platelet Volume 10.3 fL (9.4-12.4); Monocytes # (auto) 0.29 K/uL (0.11-0.59); Monocytes % (auto) 14.3 %; Neutrophils # (auto) 1.37 K/uL (1.40-6.50); Neutrophils % (auto) 67.5 %; Platelet Count 105 K/uL (130-400); RDW Coefficient of Variation 16.7 % (11.5-14.5); RDW Standard Deviation 52.6 fL (36.4-46.3); Red Blood Count 2.65 M/uL (4.70-6.10); White Blood Count 2.03 K/ul (4.8-10.8)
[2023-01-24 06:59] LABS: Albumin Level 2.6 gm/dl (3.4-5.0); BUN Creatinine Ratio 18.2 (10-20); Bilirubin,Total 0.2 mg/dl (0.2-1.0); Calcium 8.3 mg/dl (8.6-10.3); Creatinine Clr Calc Pharmacy 114.8 ml/min; Est GFR (African American) 129.4 ml/min; Est GFR (Non-African American) 111.7 ml/min; Globulin 2.7 gm/dl (2.5-4.0); Total Protein 5.3 gm/dl (6.0-8.3)
[2023-01-24 07:01] LABS: RBC Morphology Unremarkable
[2023-01-24] MEDS: BACITRACIN OINT 15 GM TUBE EXT SCH (08:45)
[2023-01-24] MEDS: DOCUSATE SODIUM 100 MG CAP PO SCH (08:45)
[2023-01-24] MEDS: guaiFENesin 600 MG TABCR PO SCH (08:45)
[2023-01-24] MEDS: ADVANCED PROBIOTIC 1250 MG CAPSULE PO SCH (08:45)
[2023-01-24] MEDS: FERROUS SULFATE 325 MG TAB PO SCH (08:45)
[2023-01-24] MEDS: NYSTATIN SUSP 500,000 U/5 ML UDC PO SCH (08:46)
[2023-01-24] MEDS: TAMSULOSIN HCL 0.4 MG CAP PO SCH (08:46)
[2023-01-24] MEDS: SILVER SULFADIAZINE 1% CR 50 GM JAR EXT SCH (08:46)
[2023-01-24] MEDS: FAMOTIDINE 10 MG TABLET PO SCH (08:46)
[2023-01-24] MEDS: SUCRALFATE 1 GM/10 ML UDC PO SCH (08:46)
[2023-01-24] MEDS: LORATADINE 10 MG TAB PO SCH (08:46)
--- NOTE | 2023-01-24 12:49 | Discharge Summary ---
Date of Service January 24, 2023 Admission HPI Per Admitting Provider 62-year-old male with history of recently diagnosed lung cancer, status postchemotherapy and radiation therapy, History of smoking, etc. Presenting with cough times few days, and episode of confusion/hallucination today. Patient follows with [facility] oncology service and has completed chemotherapy and radiation therapy last week. Patient reports he has been having productive cough for the past few days, associated with some chills But no shortness of breath, chest pain. He also has pain with swallowing which he attributes to radiation. At the ER, patient was noted to have blood pressure on the lower side, and tachycardia. Chest x-ray showing bilateral lower lobe infiltrates. He was given IV NSS and IV Zosyn at the ER. On exam, patient seen sitting up in bed, not in distress, alert, oriented x3, answers all questions appropriately. Denies active shortness of breath, chest pain, palpitations, dizziness Patient reports having episodes of hallucinations-seeing mice crawling on the floor. He takes oxycodone for chronic pain but has been taking this evening for hallucinations started. No other new symptom Admission Exam Per Admitting Provider General- oriented x 3, not in distress, speaks in sentences with no effort or accessory muscle use Head- atraumatic Eyes- PERRL, EOMI, anicteric ENT- oropharynx clear Positive oral thrush Neck- supple, no JVD, no adenopathy, no thyromegaly; carotids +2/2, no bruits appreciated Lungs-positive left upper chest wall: Area of erythema with white discharge d ischarge-cream? Positive mild to moderate rhonchi bilaterally, with intermittent wheezing Good air entry bilaterally Positive port on the right upper chest wall Heart- normal rate, regular rhythm; no murmur, no gallop, no rub appreciated Abdomen- normal bowel sounds, nondistended, soft, nontender, no masses or hepatosplenomegaly Extremities- no pretibial edema, no calf tenderness; peripheral pulses intact Neuro- alert, oriented x 3; CN 2-12 grossly intact; motor 5/5 bilaterally;sensation 100% on all extremities; no other gross focal neurologic deficits Skin- warm & dry Principal Diagnosis MRSA BACTEREMIA, PORT INFECTION BILATERAL LOWER LOBE PNEUMONIA LUNG CANCER, STATUS POSTCHEMOTHERAPY AND RADIATION RADIATION DERMATITIS, Discharge Exam General- oriented x 3, not in distress, speaks in sentences with no effort or accessory muscle use Eyes- anicteric Neck- no JVD Lungs-bilateral clear breath sound. Chest-bandaged over Port-A-Cath site removal clean dry and intact. Heart- normal rate, regular rhythm; no murmurs Moderate erythema on the right upper chest wall/neck area Abdomen- normal bowel sounds, nondistended, soft, no tenderness Extremities- no pretibial edema, no calf tenderness Neuro- alert, oriented x 3; no gross focal neurologic deficits Skin- warm & dry Discharge Data Allergies Allergy/AdvReac Type Severity Reaction Status Date / Time No Known Allergies Allergy Verified 01/18/23 18:07 Consultations 01/18/23 16:49 ED Decision to Admit Stat 01/19/23 09:05 Consult Infectious Diseases Routine 01/20/23 14:57 Consult General Surgery Routine Procedures Performed Operation Date: 01/21/23 07:00 Actual Procedures p Infusaport Removal(Right) - Dontrell Comer MD Ordered Studies 01/18/23 17:04 CT chest diagnostic wo con Routine CT head/brain wo con Stat Hospital Course (1) Bacteremia: (2) Infected venous access port: (3) Pneumonia: 62-year-old male with history of recently diagnosed lung cancer, status postchemotherapy and radiation therapy. Patient presented with productive cough, hypotension and tachycardia. Chest x-ray showed bilateral lower lobe infiltrates. He was admitted to telemetry floor. He was managed for following conditions. 1) MRSA BACTEREMIA, PORT INFECTION BILATERAL LOWER LOBE PNEUMONIA LUNG CANCER, STATUS POSTCHEMOTHERAPY AND RADIATION Possible Sepsis, POA possibly due to a combination of pneumonia and infusaport CT chest: 1. Multifocal tree-in-bud nodules, most pronounced within the left lower lobe. Associated bronchial wall thickening and mucus plugging. The findings suggest an infectious process such as bronchiolitis/bronchopneumonia. 2. 6.2 x 2.8 cm cavitary left upper lobe focus which communicates with the left upper lobe bronchus. This has decreased in size since treatment planning CT of December 08, 2022 and may represent the primary neoplasm. Continued imaging follow-up is recommended to exclude residual viable tumor. 3. No pleural effusion. No pneumothorax. Sputum culture: MRSA Blood cultures: Positive MRSA Repeat blood culture reviewed: No growth in 48 hours Transthoracic echocardiogram done; no evidence of vegetation Patient underwent removal of Port-A-Cath on Vanessa 12 by general surgery Discussed with infectious disease(Dr. Mercado); PICC line placed on January 23. Discussed with pharmacy regarding dosing of vancomycin till February 04; recommended current dose to maintain vancomycin trough level 15-20. Will need weekly CBC, BMP and vancomycin trough while on treatment. Discharged home with home health for IV antibiotic till February 04, 2023. Patient will have weekly CBC, BMP and vancomycin trough on Tuesdays. Patient to follow- up with his primary care doctor. 2) RADIATION DERMATITIS,MRSA CELLULITIS, LEFT UPPER CHEST/NECK REGION Wound Care was consulted during hospitalization; patient was also placed on silver sulfadiazine dressing. Pancytopenia due to Antineoplastic chemotherapy CBC remained stable throughout the hospitalization. No episode of fever. No signs of bleeding Please note the above document was generated using voice recognition software. It may contain grammatical, syntax or spelling errors. Any formal questions or concerns about the content, text or information contained within the body of this dictation should be directly addressed to the provider for clarification Total Time Total Time Spent Total Time Spent (In Minutes): 45 Total Time Includes: Examination of the Patient, Discharge Planning, Medication Reconciliation, Communication With Other Providers and Other Discharge Plan Discharge Items Patient Disposition: Home - Home Health Services Reason For Visit: PNEUMONIA Discharge Diagnosis: MRSA BACTEREMIA, PORT INFECTION BILATERAL LOWER LOBE PNEUMONIA LUNG CANCER, STATUS POSTCHEMOTHERAPY AND RADIATION Possible Sepsis, POA possibly due to a combination of pneumonia and infusaport Activity: Resume your previous activity Non-emergency contact: Primary Care Provider Call non-emergency contact if: you have any medication questions Follow-up/Referrals: Wood Genao MD [Primary Care Provider] - (Date & Time 01/28/2023 10:00 AM Provider Wood Genao MD [facility] ) Diet: Regular Addtl Attending Provider Instructions: You were admitted here with bacteremia (infection of the blood with bacteria). You will need to be on IV vancomycin 1250 mg every 8 hours till February 04, 2023. You will have labs drawn on Tuesdays. The labs should be reviewed by your primary care doctor. The Port-A-Cath was removed by surgeon (Dr. Comer). Please keep the dressing to January 26, 2023. The suture can be removed in 2 to 3 weeks. Please follow-up with surgery for it. Please call [phone]. Follow up with PCP as scheduled. Pending Studies at Discharge: No Stand-Alone Forms: [facility], Smoking Cessation Medications and DC Order Prescriptions: Continued prochlorperazine maleate [Compazine] 10 mg tablet 10 mg PO Q6H PRN (Reason: Nausea) benzonatate 100 mg capsule 100 mg PO TID PRN (Reason: cough) ipratropium-albuterol 0.5 mg-3 mg(2.5 mg base)/3 mL solution for nebulization 3 ml inhalation Q8H Patient Comments: NOT CURRENT USING/ON BACK ORDER albuterol sulfate 90 mcg/actuation HFA aerosol inhaler 2 puff inhalation Q6H PRN (Reason: sob) sucralfate [Carafate] 100 mg/mL suspension 10 ml PO QID Qty: 420 3RF Rx Instructions: Take 1 hour before meals and bedtime. silver sulfadiazine [Silvadene] 1 % cream 1 applic topical BID Qty: 85 1RF Rx Instructions: apply a 1.5 mm thickness tamsulosin 0.4 mg Capsule 0.4 mg PO QAM docusate sodium [Stool Softener] 100 mg Tablet 100 mg PO BID Probiotic 3 billion cell Capsule 3,000 mmu cells PO QAM Rx Instructions: administer with a meal Magic Mouthwash 300 mL mouthwash 10 ml mucous membrane UD PRN (Reason: dysphagia) famotidine [Pepcid] 20 mg Tablet 10 mg PO BID loratadine [Claritin] 10 mg Tablet 10 mg PO QAM montelukast 10 mg Tablet 10 mg PO UD Patient Comments: DAY BEFORE AND MORNING OF CHEMO THERAPY AND I THINK I TAKE ONE THE DAY AFTER CHEMO prednisone 20 mg tablet 40 mg PO DAILY Rx Instructions: ordered 01/09/2023 for 7 days oxycodone 20 mg tablet 20 mg PO .4-6 HR PRN (Reason: Pain) Discharge Orders: Discharge Order (Routine); Ordered 01/24/23 Ordered By: Narayan Underwood Admission Data Admit Date/Time: 01/18/23 16:52 Attending Provider: Narayan Underwood Admit Provider: Ezekiel Brown Primary Care Provider: Wood Genao Other Providers: Ezekiel Brown ; Gomez Galaviz ; Humberto Hernandez ; Robb Mercado I. ; Sherif Nuno II ; Vero Jean Baptiste ; Deacon Harman ; Mino Bennett ; Ruddy Zelaya ; Dontrell Comer ; [facility],Home Healthcare Other Interventions: Discharge Summary Assessment (RN) Last Done: 01/24/23 10:28
== END 2023-01-24 10:29 | disposition home health service (06) | DRG 314 ==
LOC: ED 14:20 → 4W 16:52 → SUATTDRO 16:52 → 4W 18:08

== ENCOUNTER 2023-02-11 20:54 | Observation (INO) ==
[2023-02-11 21:49] LABS: Basophils # (auto) 0.06 K/uL (0-0.2); Basophils % (auto) 0.8 %; Eosinophils # (auto) 0.07 K/uL (0-0.50); Eosinophils % (auto) 0.9 %; Hematocrit (blood only) 26.3 % (42.0-52.0); Hemoglobin 8.1 g/dl (14.0-18.0); Immature Granulocytes # (auto) 0.05 K/uL (0.01-0.20); Immature Granulocytes % (auto) 0.7 %; Lymphocytes # (auto) 0.49 K/uL (1.2-3.4); Lymphocytes % (auto) 6.6 %; Mean Corpuscular Hemoglobin 27.9 pg (25.0-34.0); Mean Corpuscular Hgb Conc 30.8 g/dL (32.0-36.0); Mean Corpuscular Volume 90.7 fL (80.0-100.0); Mean Platelet Volume 9.2 fL (9.4-12.4); Monocytes # (auto) 1.24 K/uL (0.11-0.59); Monocytes % (auto) 16.8 %; Neutrophils # (auto) 5.46 K/uL (1.40-6.50); Neutrophils % (auto) 74.2 %; Platelet Count 384 K/uL (130-400); RDW Coefficient of Variation 17.2 % (11.5-14.5); RDW Standard Deviation 57.1 fL (36.4-46.3); White Blood Count 7.37 K/ul (4.8-10.8)
[2023-02-11] MEDS ORDERED: SODIUM CHLORIDE 0.9% 1000ML 1,000 ML IV ONE (21:55)
[2023-02-11 22:06] LABS: Albumin Level 3.6 gm/dl (3.4-5.0); BUN Creatinine Ratio 17.6 (10-20); Bilirubin,Total 0.4 mg/dl (0.2-1.0); Calcium 8.7 mg/dl (8.6-10.3); Creatinine Clr Calc Pharmacy 57.2 ml/min; Est GFR (African American) 84.8 ml/min; Est GFR (Non-African American) 73.2 ml/min; Globulin 3.7 gm/dl (2.5-4.0); Total Protein 7.3 gm/dl (6.0-8.3)
[2023-02-11 22:14] LABS: Troponin I High Sensitivity 4.8 pg/ml (0-20)
[2023-02-11 22:17] LABS: Partial Thromboplastin Ratio 1.1; Partial Thromboplastin Time 32.2 Seconds (21.0-31.0); Prothrombin Time 11.3 Seconds (9.0-12.0)
--- NOTE | 2023-02-11 22:24 | Emergency Department Note ---
Impression & Plan Acute alteration in mental status, Pneumonia, Mass of left lung ED Provider Note CHIEF COMPLAINT: "He is seeing mice" HISTORY OF PRESENT ILLNESS: This 62-year-old male patient presents to the emergency department via private vehicle for evaluation of hallucinations and 's concern that he may have an infection. The patient's provides the history. She states he was admitted about a month ago and on antibiotics for a week after that. He had bacteremia and infected port as well as pneumonia which presented with altered mental status. The patient's states he was fine until today when he started hallucinating. She states he was pointing and noting that he was seeing mice. He brought her half a roll of toilet paper and a bag of cheese this evening and did not want to eat his supper. She states that he has not had a fever and was in his usual state of health up until today. He has not complained of any pain except in the left side where he has a presumed rib fracture. He has not taken any medications for his symptoms. He has not had a chemotherapy or radiation treatment in about 2 weeks. Recent chills. No abdominal pain, nausea, vomiting, numbness, tingling. No SOB. No hemoptysis. No diarrhea or constipation. REVIEW OF SYSTEMS: A 10 system review of systems was performed with positives and pertinent negatives listed in the history of present illness. All other systems were reviewed and are negative. ALLERGIES: None PHYSICAL EXAM: VITALS: Vitals are noted on the nurse's note and reviewed by myself. Vital signs stable. GENERAL: This is a 62 year old male, chronically ill in appearance but in no acute distress, nondiaphoretic, well-developed well-nourished. SKIN: The skin was without rashes, erythema, edema, or bruising. There is no tenting of the skin. Capillary refill less than 2 seconds. HEAD: Normocephalic atraumatic. EYES: Pupils equal round and reactive to light and accommodation. Conjunctivae without injection, sclerae without icterus. Extraocular movements intact. NOSE: Patent, turbinates without inflammation or discharge. No sinus tenderness. MOUTH: Mucous membranes moist. Tonsils are not enlarged. Pharynx without erythema or exudate. Uvula midline. Airway patent. Tongue does not deviate. NECK: Supple without nuchal rigidity. No lymphadenopathy. No thyromegaly. Cervical spine is nontender. No JVD. HEART: Regular rate and rhythm without murmurs gallops or rubs. LUNGS: Clear to auscultation bilaterally without wheezes, rales or rhonchi. No retractions or accessory muscle use. ABDOMEN: Positive bowel sounds x 4. Soft, nontender, without masses or organomegaly. Cortés sign negative. No guarding or rebound tenderness. MUSCULOSKELETAL: No muscle atrophy, erythema, or edema noted. Full range of motion without joint tenderness in all extremities. No tenderness to palpation. Normal gait. Strength 5/5 throughout. NEURO: Patient was alert and oriented to person place and time. Normal sen sation to light and sharp touch. Deep tendon reflexes 2+ throughout. No focal neurological deficits. EKG, interpreted by myself: Sinus tachycardia with PACs. Ventricular rate [address] elevation or depression. No T wave inversion Chest x-ray. Findings: A chest x-ray was performed and revealed left lower lobe consolidation, per my interpretation EMERGENCY DEPARTMENT COURSE: The patient was seen and evaluated as above. IV access obtained, labs drawn. Labs were without leukocytosis. There is an anemia which appears to be chronic. Hemoglobin is 8.1, this is up from recent hemoglobin completed last month. INR 1.0. Renal, hepatic function and electrolytes without significant abnormality. TSH elevated at 4.570. Urinalysis without clear evidence of infection. Respiratory bio fire testing was negative. Chest x-ray was completed and was concerning for a large left pleural effusion and consolidation. Due to this finding and the patient's history of lung cancer, CT imaging was completed. This did show left-sided consolidation and pleural effusion. I did discuss the case with my attending physician. I am concerned for progressive infection, particularly given the CT findings and the patient's altered mental status. I discussed the case with Dr. eJan, [facility] physician. He did agree to see and evaluate the patient for admission. We discussed initiating antibiotics, but he would prefer to hold off at this time. Please see his dictation regarding ongoing management care of this patient. Differential diagnosis includes infection, hypoglycemia, electrolyte abnormalities, overdose, toxicologic, cardiac sources, intracerebral event, neurologic, trauma, as well as other pathologies. I attest that I have personally reviewed the patient's current medication list. Patient was found to have normal blood pressure on screening and does not re quire follow-up. The chart was completed utilizing [employer] Speech voice recognition software. Grammatical errors, random word insertions, pronoun errors, and incomplete sentences are an occasional consequence of this system due to software limitations, ambient noise, and hardware issues. Any formal questions or concerns about the content, text, or information contained within the body of this dictation should be directly addressed to the provider for clarification. Past Med/Surg History Medical History Chemotherapy adverse reaction LAST WEEK: BLOOD PRESSURE DECREASED/ REQUIRING 1 NIGHT HOSPITAL STAY FOR OBSERVATION, [facility] DM type 2 (diabetes mellitus, type 2) Ex-smoker Frequent urination ONGOING ISSUE Hepatitis C Active History of chest pain RECENT DX LUNG CA...TESTING...C/P SUSPECTED TO BE DUE TO TUMOR LOCATION AT LUNG ENTRY - WANTED TO PLACE A STENT/UNABLE TO STENT History of fracture of orbit HX RIGHT ORBITAL FX...SX/TITANIUM IMPLANT History of fractured vertebra History of influenza OCT 2022 History of vascular access device CURRENT/ PT REPORTS BELIEVES HIS IS NON POWER Lung cancer Dx'd 10/14/2022/CURRENTLY CHEMO AND RADIATION Osteoporosis Ruptured intervertebral disc hx Surgical History H/O eye surgery 1996 H/O knee surgery 1999 History of bronchoscopy History of tonsillectomy and adenoidectomy 1972 Port-A-Cath in place (11/25/22) Insertion Access Port with Fluoroscopy Right Internal Jugular Vein(Right) - Colin Hernandez DO PT REPORTS HE THINKS HIS IS A NON POWER PORT Family History Brother Stomach cancer Grandfather (Maternal) Prostate cancer Grandfather (Paternal) Colon cancer Father Heart disease Grandfather Stroke Social History Smoking Status: Former smoker Tobacco Type: Cigarettes packs per day: 1.5; Second Hand Exposure: No; Do You Dip or Chew Tobacco: No; Hx Alcohol Use: No Hx Substance Use: No Preferred Language: Bulgarian Communication Ability: Effective Visual Impairment: No Limitations Hearing Ability: Normal Orthoptist Required: No Beliefs That Will Affect Care: None Current Living Situation: Significant Other and Other 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 current occupational status: disabled Feels Safe at Home: Yes Diet: diabetic during the past year weight has: decreased > 10 lbs Assistive Devices: Nebulizer Allergies Allergies Allergy/AdvReac Type Severity Reaction Status Date / Time No Known Allergies Allergy Verified 01/18/23 18:07 Home Meds Home Medications Medication Instructions Recorded Confirmed albuterol sulfate 90 mcg/actuation 2 puff inhalation Q4 PRN Wheezing 10/29/22 02/11/23 aerosol inhaler ipratropium 0.5 mg-albuterol 3 mg 3 ml inhalation Q8H wheezing 10/29/22 02/11/23 (2.5 mg base)/3 mL nebulization soln tamsulosin 0.4 mg capsule 0.8 mg PO QAM 11/19/22 02/11/23 prochlorperazine maleate 10 mg 10 mg PO Q6H PRN Nausea 12/08/22 02/11/23 tablet (Compazine) benzonatate 100 mg capsule 100 mg PO TID PRN cough 12/22/22 02/11/23 Magic Mouthwash 300 mL mouthwash 10 ml mucous membrane UD PRN 12/24/22 02/11/23 dysphagia docusate sodium 100 mg tablet 100 mg PO BID 12/24/22 02/11/23 (Stool Softener) famotidine 20 mg tablet (Pepcid) 10 mg PO BID 12/24/22 02/11/23 loratadine 10 mg tablet (Claritin) 10 mg PO QAM 12/24/22 02/11/23 montelukast 10 mg tablet 10 mg PO UD 12/24/22 02/11/23 oxycodone 20 mg tablet 20 mg PO .4-6 HR PRN Pain 01/18/23 02/11/23 ferrous sulfate 325 mg (65 mg 325 mg PO DAILYBB 02/11/23 02/11/23 iron) tablet (FeroSul) Previous Rx's Medication Instructions Recorded sucralfate 100 mg/mL oral 10 ml PO QID #420 mL 01/07/23 suspension (Carafate) silver sulfadiazine 1 % topical 1 applic topical BID #85 grams 01/12/23 cream (Silvadene) Results & Data (ED) Vital Signs Vital Signs - 24 hr 02/11/23 20:59 02/11/23 21:37 02/11/23 21:39 Temperature 36.9 C Temperature Source Temporal Artery Scan Pulse Rate 111 H 101 H Pulse Rate [Apical] 97 H Respiratory Rate 18 21 Respiratory Effort / Characteristics Non-Labored Spontaneous Non-Labored Spontaneous Respiratory Depth Normal Normal Respiratory Pattern Regular Regular Blood Pressure Blood Pressure [Right Arm] 107/72 Blood Pressure Mean Blood Pressure Mean [Right Arm] 83 Blood Pressure Position [Right Arm] Pulse Oximetry 98 99 Oxygen Delivery Method Room Air Room Air Sepsis Recent Fever Within 48 Hours No Sepsis New/Unexplained Change in Mental Status No Sepsis Action Taken by Nursing No Action Required 02/11/23 22:04 02/11/23 22:30 02/11/23 23:00 Temperature Temperature Source Pulse Rate 97 H 97 H Pulse Rate [Apical] 99 H Respiratory Rate 21 29 H 18 Respiratory Effort / Characteristics Non-Labored Spontaneous Respiratory Depth Normal Respiratory Pattern Blood Pressure 114/72 117/74 Blood Pressure [Right Arm] 112/71 Blood Pressure Mean 86 88 Blood Pressure Mean [Right Arm] 84 Blood Pressure Position [Right Arm] Pulse Oximetry 100 100 97 Oxygen Delivery Method Room Air Room Air Room Air Sepsis Recent Fever Within 48 Hours Sepsis New/Unexplained Change in Mental Status Sepsis Action Taken by Nursing 02/12/23 01:11 02/12/23 01:33 02/12/23 02:30 Temperature Temperature Source Pulse Rate 99 H Pulse Rate [Apical] 97 H 97 H Respiratory Rate 18 18 Respiratory Effort / Characteristics Non-Labored Spontaneous Non-Labored Spontaneous Respiratory Depth Normal Normal Respiratory Pattern Blood Pressure Blood Pressure [Right Arm] 113/69 109/70 Blood Pressure Mean Blood Pressure Mean [Right Arm] 83 83 Blood Pressure Position [Right Arm] Sitting Sitting Pulse Oximetry 96 98 Oxygen Delivery Method Room Air Room Air Sepsis Recent Fever Within 48 Hours Sepsis New/Unexplained Change in Mental Status Sepsis Action Taken by Nursing 02/12/23 04:30 02/12/23 05:36 02/12/23 05:42 Temperature Temperature Source Pulse Rate 97 H Pulse Rate [Apical] 98 H 99 H Respiratory Rate 18 18 Respiratory Effort / Characteristics Non-Labored Spontaneous Non-Labored Spontaneous Respiratory Depth Normal Normal Respiratory Pattern Blood Pressure Blood Pressure [Right Arm] 108/78 111/75 Blood Pressure Mean Blood Pressure Mean [Right Arm] 88 87 Blood Pressure Position [Right Arm] Sitting Sitting Pulse Oximetry 98 100 Oxygen Delivery Method Room Air Room Air Sepsis Recent Fever Within 48 Hours Sepsis New/Unexplained Change in Mental Status Sepsis Action Taken by Nursing Laboratory Data 02/11/23 21:30 02/11/23 21:30 Lab Results 02/11/23 02/11/23 02/11/23 Range/Units 21:30 21:30 21:30 WBC 7.37 (4.8-10.8) K/ul RBC 2.90 L (4.70-6.10) M/uL Hgb 8.1 L (14.0-18.0) g/dl Hct 26.3 L (42.0-52.0) % MCV 90.7 (80.0-100.0) fL MCH 27.9 (25.0-34.0) pg MCHC 30.8 L (32.0-36.0) g/dL RDW Std Deviation 57.1 H (36.4-46.3) fL RDW Coeff of Mathieu 17.2 H (11.5-14.5) % Plt Count 384 (130-400) K/uL MPV 9.2 L (9.4-12.4) fL Immature Gran % (Auto) 0.7 % Neut % (Auto) 74.2 % Lymph % (Auto) 6.6 % Rogers % (Auto) 16.8 % Eos % (Auto) 0.9 % Baso % (Auto) 0.8 % Neut # (Auto) 5.46 (1.40-6.50) K/uL Lymph # (Auto) 0.49 L (1.2-3.4) K/uL Rogers # (Auto) 1.24 H (0.11-0.59) K/uL Eos # (Auto) 0.07 (0-0.50) K/uL Baso # (Auto) 0.06 (0-0.2) K/uL Immature Gran # (Auto) 0.05 (0.01-0.20) K/uL PT 11.3 (9.0-12.0) Seconds INR 1.0 (0.9-1.1) APTT 32.2 H (21.0-31.0) Seconds PTT Ratio 1.1 Sodium 134 L (136-145) mmol/L Potassium 4.0 (3.5-5.1) mmol/L Chloride 101 (98-107) mmol/L Carbon Dioxide 27 (21-32) mmol/L Anion Gap 6 (3-11) BUN 19 (6-23) mg/dl Creatinine 1.08 (0.6-1.4) mg/dl Est Cr Clr Drug Dosing 57.2 ml/min Est GFR ( Amer) 84.8 ml/min Est GFR (Non-Af Amer) 73.2 ml/min BUN/Creatinine Ratio 17.6 (10-20) Glucose 108 H (70-99(Fasting)) mg/dl Lactate (0.4-2.0) mmol/L Calcium 8.7 (8.6-10.3) mg/dl Magnesium 2.0 (1.7-2.4) mg/dl Total Bilirubin 0.4 (0.2-1.0) mg/dl AST 14 (13-39) U/L ALT 11 (7-52) U/L Alkaline Phosphatase 71 (34-104) U/L Troponin I High Sens 4.8 (0-20) pg/ml Total Protein 7.3 (6.0-8.3) gm/dl Albumin 3.6 (3.4-5.0) gm/dl Globulin 3.7 (2.5-4.0) gm/dl Albumin/Globulin Ratio 1.0 (0.9-2) Procalcitonin (0-0.5) ng/ml TSH (0.300-4.500) uIu/ml Urine Color Urine Appearance (Clear) Urine pH (4.5-7.5) Ur Specific [place] (1.000-1.030) Urine Protein (Negative) Urine Glucose (UA) (Negative) Urine Ketones (Negative) Urine Blood (Negative) Urine Nitrite (Negative) Urine Bilirubin (Negative) Urine Urobilinogen (Negative) Ur Leukocyte Esterase (Negative) Urine WBC (Auto) (0-5) /hpf Urine RBC (Auto) (0-4) /hpf U Hyaline Cast (Auto) (0-5) /lpf U Epithel Cells (Auto) (0-5) /lpf Urine Bacteria (Auto) (Negative) Adenovirus (PCR) (NotDetected) B. pertussis DNA (PCR) (NotDetected) B.parapertussis DNA PCR (NotDetected) C. pneumoniae DNA (PCR) (NotDetected) Coronavirus OC43 (PCR) (NotDetected) Coronavirus HKU1 (PCR) (NotDetected) Coronavirus 229E (PCR) (NotDetected) SARS-CoV-2 (PCR) (NotDetected) Coronavirus NL63 (PCR) (NotDetected) Human Metapneumovir PCR (NotDetected) Influenza Type A (PCR) (NotDetected) Influenza Type B (PCR) (NotDetected) M. pneumoniae (PCR) (NotDetected) Parainfluenza 1 (PCR) (NotDetected) Parainfluenza 2 (PCR) (NotDetected) Parainfluenza 3 (PCR) (NotDetected) Parainfluenza 4 (PCR) (NotDetected) RSV (PCR) (NotDetected) Entero/Rhino (PCR) (NotDetected) 02/11/23 02/11/23 02/11/23 Range/Units 21:30 21:59 23:00 WBC (4.8-10.8) K/ul RBC (4.70-6.10) M/uL Hgb (14.0-18.0) g/dl Hct (42.0-52.0) % MCV (80.0-100.0) fL MCH (25.0-34.0) pg MCHC (32.0-36.0) g/dL RDW Std Deviation (36.4-46.3) fL RDW Coeff of Mahtieu (11.5-14.5) % Plt Count (130-400) K/uL MPV (9.4-12.4) fL Immature Gran % (Auto) % Neut % (Auto) % Lymph % (Auto) % Rogers % (Auto) % Eos % (Auto) % Baso % (Auto) % Neut # (Auto) (1.40-6.50) K/uL Lymph # (Auto) (1.2-3.4) K/uL Rogers # (Auto) (0.11-0.59) K/uL Eos # (Auto) (0-0.50) K/uL Baso # (Auto) (0-0.2) K/uL Immature Gran # (Auto) (0.01-0.20) K/uL PT (9.0-12.0) Seconds INR (0.9-1.1) APTT (21.0-31.0) Seconds PTT Ratio Sodium (136-145) mmol/L Potassium (3.5-5.1) mmol/L Chloride (98-107) mmol/L Carbon Dioxide (21-32) mmol/L Anion Gap (3-11) BUN (6-23) mg/dl Creatinine (0.6-1.4) mg/dl Est Cr Clr Drug Dosing ml/min Est GFR ( Amer) ml/min Est GFR (Non-Af Amer) ml/min BUN/Creatinine Ratio (10-20) Glucose (70-99(Fasting)) mg/dl Lactate 0.9 (0.4-2.0) mmol/L Calcium (8.6-10.3) mg/dl Magnesium (1.7-2.4) mg/dl Total Bilirubin (0.2-1.0) mg/dl AST (13-39) U/L ALT (7-52) U/L Alkaline Phosphatase (34-104) U/L Troponin I High Sens (0-20) pg/ml Total Protein (6.0-8.3) gm/dl Albumin (3.4-5.0) gm/dl Globulin (2.5-4.0) gm/dl Albumin/Globulin Ratio (0.9-2) Procalcitonin (0-0.5) ng/ml TSH 4.570 H (0.300-4.500) uIu/ml Urine Color Urine Appearance (Clear) Urine pH (4.5-7.5) Ur Specific [place] (1.000-1.030) Urine Protein (Negative) Urine Glucose (UA) (Negative) Urine Ketones (Negative) Urine Blood (Negative) Urine Nitrite (Negative) Urine Bilirubin (Negative) Urine Urobilinogen (Negative) Ur Leukocyte Esterase (Negative) Urine WBC (Auto) (0-5) /hpf Urine RBC (Auto) (0-4) /hpf U Hyaline Cast (Auto) (0-5) /lpf U Epithel Cells (Auto) (0-5) /lpf Urine Bacteria (Auto) (Negative) Adenovirus (PCR) Not Detected (NotDetected) B. pertussis DNA (PCR) Not Detected (NotDetected) B.parapertussis DNA PCR Not Detected (NotDetected) C. pneumoniae DNA (PCR) Not Detected (NotDetected) Coronavirus OC43 (PCR) Not Detected (NotDetected) Coronavirus HKU1 (PCR) Not Detected (NotDetected) Coronavirus 229E (PCR) Not Detected (NotDetected) SARS-CoV-2 (PCR) Not Detected (NotDetected) Coronavirus NL63 (PCR) Not Detected (NotDetected) Human Metapneumovir PCR Not Detected (NotDetected) Influenza Type A (PCR) Not Detected (NotDetected) Influenza Type B (PCR) Not Detected (NotDetected) M. pneumoniae (PCR) Not Detected (NotDetected) Parainfluenza 1 (PCR) Not Detected (NotDetected) Parainfluenza 2 (PCR) Not Detected (NotDetected) Parainfluenza 3 (PCR) Not Detected (NotDetected) Parainfluenza 4 (PCR) Not Detected (NotDetected) RSV (PCR) Not Detected (NotDetected) Entero/Rhino (PCR) Not Detected (NotDetected) 02/11/23 02/12/23 Range/Units 23:00 00:29 WBC (4.8-10.8) K/ul RBC (4.70-6.10) M/uL Hgb (14.0-18.0) g/dl Hct (42.0-52.0) % MCV (80.0-100.0) fL MCH (25.0-34.0) pg MCHC (32.0-36.0) g/dL RDW Std Deviation (36.4-46.3) fL RDW Coeff of Mathieu (11.5-14.5) % Plt Count (130-400) K/uL MPV (9.4-12.4) fL Immature Gran % (Auto) % Neut % (Auto) % Lymph % (Auto) % Rogers % (Auto) % Eos % (Auto) % Baso % (Auto) % Neut # (Auto) (1.40-6.50) K/uL Lymph # (Auto) (1.2-3.4) K/uL Rogers # (Auto) (0.11-0.59) K/uL Eos # (Auto) (0-0.50) K/uL Baso # (Auto) (0-0.2) K/uL Immature Gran # (Auto) (0.01-0.20) K/uL PT (9.0-12.0) Seconds INR (0.9-1.1) APTT (21.0-31.0) Seconds PTT Ratio Sodium (136-145) mmol/L Potassium (3.5-5.1) mmol/L Chloride (98-107) mmol/L Carbon Dioxide (21-32) mmol/L Anion Gap (3-11) BUN (6-23) mg/dl Creatinine (0.6-1.4) mg/dl Est Cr Clr Drug Dosing ml/min Est GFR ( Amer) ml/min Est GFR (Non-Af Amer) ml/min BUN/Creatinine Ratio (10-20) Glucose (70-99(Fasting)) mg/dl Lactate (0.4-2.0) mmol/L Calcium (8.6-10.3) mg/dl Magnesium (1.7-2.4) mg/dl Total Bilirubin (0.2-1.0) mg/dl AST (13-39) U/L ALT (7-52) U/L Alkaline Phosphatase (34-104) U/L Troponin I High Sens (0-20) pg/ml Total Protein (6.0-8.3) gm/dl Albumin (3.4-5.0) gm/dl Globulin (2.5-4.0) gm/dl Albumin/Globulin Ratio (0.9-2) Procalcitonin 0.12 (0-0.5) ng/ml TSH (0.300-4.500) uIu/ml Urine Color Dark Yellow Urine Appearance Cloudy A (Clear) Urine pH 6.0 (4.5-7.5) Ur Specific [place] 1.022 (1.000-1.030) Urine Protein Trace H (Negative) Urine Glucose (UA) Negative (Negative) Urine Ketones Trace H (Negative) Urine Blood Negative (Negative) Urine Nitrite Negative (Negative) Urine Bilirubin Negative (Negative) Urine Urobilinogen Negative (Negative) Ur Leukocyte Esterase Negative (Negative) Urine WBC (Auto) 1-5 (0-5) /hpf Urine RBC (Auto) 0-4 (0-4) /hpf U Hyaline Cast (Auto) 1-5 (0-5) /lpf U Epithel Cells (Auto) 10-20 H (0-5) /lpf Urine Bacteria (Auto) Negative (Negative) Adenovirus (PCR) (NotDetected) B. pertussis DNA (PCR) (NotDetected) B.parapertussis DNA PCR (NotDetected) C. pneumoniae DNA (PCR) (NotDetected) Coronavirus OC43 (PCR) (NotDetected) Coronavirus HKU1 (PCR) (NotDetected) Coronavirus 229E (PCR) (NotDetected) SARS-CoV-2 (PCR) (NotDetected) Coronavirus NL63 (PCR) (NotDetected) Human Metapneumovir PCR (NotDetected) Influenza Type A (PCR) (NotDetected) Influenza Type B (PCR) (NotDetected) M. pneumoniae (PCR) (NotDetected) Parainfluenza 1 (PCR) (NotDetected) Parainfluenza 2 (PCR) (NotDetected) Parainfluenza 3 (PCR) (NotDetected) Parainfluenza 4 (PCR) (NotDetected) RSV (PCR) (NotDetected) Entero/Rhino (PCR) (NotDetected) Administered Medications Sodium Chloride (Nss 1000ml) 1,000 mls @ 75 mls/hr IV .[id number] STA Stop: 02/12/23 17:35 Last Admin: 02/12/23 05:07 Dose: 75 mls/hr Documented By: CC Discontinued Medications Sodium Chloride (Nss 1000ml) 1,000 mls @ 999 mls/hr IV .[id number] ONE Stop: 02/11/23 22:55 Last Infusion: 02/12/23 00:08 Dose: 0 mls/hr Documented By: Admin: 02/11/23 22:03 Dose: 999 mls/hr Documented By: SAUD Ioversol (Optiray 320 500ml) 125 ml IV ONCE ONE Stop: 02/12/23 04:44 Last Admin: 02/12/23 04:43 Dose: 111 ml Documented By: JOVI Ipratropium [place] (Ipratropium [place] Neb Soln 0.02% 2.5 Ml Vial) 0.5 mg INH NOW STA Stop: 02/12/23 04:08 Last Admin: 02/12/23 05:06 Dose: 0.5 mg Documented By: SEUN Levalbuterol HCl (Levalbuterol 1.25mg/0.5ml Neb) 1.25 mg INH NOW STA Stop: 02/12/23 04:09 Last Admin: 02/12/23 05:39 Dose: 1.25 mg Documented By: SEUN Oxycodone HCl (Oxycodone Hcl Ir 5 Mg Tab (Immediate Release)) 5 mg PO NOW STA Stop: 02/12/23 03:34 Last Admin: 02/12/23 03:41 Dose: 5 mg Documented By: SEUN Imaging Data Radiologist's Impression: Chest CT 02/12/23 00:04 Exam(s): CT CHEST Without Contrast EXAM: CT Chest Without Intravenous Contrast CLINICAL HISTORY: Reason for exam: l-side chest pain, AMS, lung CA, recent pneumonia. TECHNIQUE: Axial computed tomography images of the chest without intravenous contrast. CTDI is 5.48 mGy and DLP is 200.77 mGy-cm. Automated exposure control was utilized for the study. A dose lowering technique was utilized adhering to the principles of ALARA. COMPARISON: Comparison made to prior CT scan of the chest from January 18, 2023. FINDINGS: Lungs: Moderate central peribronchial thickening of the central and peripheral bronchi with small consolidations in the left upper and left lower lobes. Pleural space: Large left pleural effusion. No pneumothorax. Heart: Unremarkable. No cardiomegaly. No significant pericardial effusion. Mild calcified atherosclerotic disease of the coronary arteries. Bones/joints: Remote fracture deformity of the T8 vertebral body. No acute fracture. No dislocation. Soft tissues: Unremarkable. Vasculature: Ectasia of the ascending aorta measured 33 mm in diameter. No thoracic aortic aneurysm. Lymph nodes: Unremarkable. No enlarged lymph nodes. IMPRESSION: Bronchitis with consolidations in the left upper and left lower lobes with large left pleural effusion. Electronically signed by: Steph Rasmussen MD 02/12/23 02:05 AM Discharge Plan Visit Data Chief Complaint: Illness Stated Complaint: LUNG CANCER,INFECTION,SEEING THINGS ED Provider: Yeni Collado ED Midlevel Provider: Melany Gardner Discharge Problem: Acute alteration in mental status, Pneumonia, Mass of left lung Patient Disposition: Admitted As Inpatient Forms Stand Alone Forms: My [facility] Prescriptions Prescriptions: No Action prochlorperazine maleate [Compazine] 10 mg tablet 10 mg PO Q6H PRN (Reason: Nausea) benzonatate 100 mg capsule 100 mg PO TID PRN (Reason: cough) ipratropium-albuterol 0.5 mg-3 mg(2.5 mg base)/3 mL solution for nebulization 3 ml inhalation Q8H Patient Comments: NOT CURRENT USING/ON BACK ORDER albuterol sulfate 90 mcg/actuation HFA aerosol inhaler 2 puff inhalation Q4 PRN (Reason: Wheezing) sucralfate [Carafate] 100 mg/mL suspension 10 ml PO QID Qty: 420 3RF Rx Instructions: Take 1 hour before meals and bedtime. silver sulfadiazine [Silvadene] 1 % cream 1 applic topical BID Qty: 85 1RF Rx Instructions: apply a 1.5 mm thickness tamsulosin 0.4 mg Capsule 0.8 mg PO QAM docusate sodium [Stool Softener] 100 mg Tablet 100 mg PO BID Magic Mouthwash 300 mL mouthwash 10 ml mucous membrane UD PRN (Reason: dysphagia) famotidine [Pepcid] 20 mg Tablet 10 mg PO BID loratadine [Claritin] 10 mg Tablet 10 mg PO QAM montelukast 10 mg Tablet 10 mg PO UD Patient Comments: DAY BEFORE AND MORNING OF CHEMO THERAPY AND I THINK I TAKE ONE THE DAY AFTER CHEMO oxycodone 20 mg tablet 20 mg PO .4-6 HR PRN (Reason: Pain) ferrous sulfate [FeroSul] 325 mg (65 mg iron) tablet 325 mg PO DAILYBB Referrals Referrals: Wood Genao MD [Primary Care Provider] -
[2023-02-11 23:19] LABS: Adenovirus PCR Not Detected (NotDetected); Bordetella parapertussis PCR Not Detected (NotDetected); Bordetella pertussis PCR Not Detected (NotDetected); Chlamydia pneumoniae PCR Not Detected (NotDetected); Coronavirus 229E PCR Not Detected (NotDetected); Coronavirus CoV-2 (COVID19)PCR Not Detected (NotDetected); Coronavirus HKU1 PCR Not Detected (NotDetected); Coronavirus NL63 PCR Not Detected (NotDetected); Coronavirus OC43PCR Not Detected (NotDetected); Human Metapneumovirus PCR Not Detected (NotDetected); Influenza A PCR Not Detected (NotDetected); Influenza B PCR Not Detected (NotDetected); Mycoplasma pneumoniae PCR Not Detected (NotDetected); Parainfluenza Virus 1 PCR Not Detected (NotDetected); Parainfluenza Virus 2 PCR Not Detected (NotDetected); Parainfluenza Virus 3 PCR Not Detected (NotDetected); Parainfluenza Virus 4 PCR Not Detected (NotDetected); Respiratory Syncytial VirusPCR Not Detected (NotDetected); Rhinovirus/Enterovirus PCR Not Detected (NotDetected)
[2023-02-12 00:45] LABS: Appearance Urine Cloudy (Clear); Bacteria Urine Automated Negative (Negative); Bilirubin Urine Negative (Negative); Blood Urine Negative (Negative); Color Urine Dark Yellow; Glucose Urine UA Negative (Negative); Ketones Urine Trace (Negative); Leukocyte Esterase Urine Negative (Negative); Nitrite Urine Negative (Negative); Protein Urine Trace (Negative); RBC Urine Automated 0-4 /hpf (0-4); Specific Gravity Urine 1.022 (1.000-1.030); Urobilinogen Urine Negative (Negative)
--- NOTE | 2023-02-12 02:06 | CT Scan Report ---
Exam(s): CT CHEST Without Contrast EXAM: CT Chest Without Intravenous Contrast CLINICAL HISTORY: Reason for exam: l-side chest pain, AMS, lung CA, recent pneumonia. TECHNIQUE: Axial computed tomography images of the chest without intravenous contrast. CTDI is 5.48 mGy and DLP is 200.77 mGy-cm. Automated exposure control was utilized for the study. A dose lowering technique was utilized adhering to the principles of ALARA. COMPARISON: Comparison made to prior CT scan of the chest from January 18, 2023. FINDINGS: Lungs: Moderate central peribronchial thickening of the central and peripheral bronchi with small consolidations in the left upper and left lower lobes. Pleural space: Large left pleural effusion. No pneumothorax. Heart: Unremarkable. No cardiomegaly. No significant pericardial effusion. Mild calcified atherosclerotic disease of the coronary arteries. Bones/joints: Remote fracture deformity of the T8 vertebral body. No acute fracture. No dislocation. Soft tissues: Unremarkable. Vasculature: Ectasia of the ascending aorta measured 33 mm in diameter. No thoracic aortic aneurysm. Lymph nodes: Unremarkable. No enlarged lymph nodes. IMPRESSION: Bronchitis with consolidations in the left upper and left lower lobes with large left pleural effusion. Electronically signed by: Steph Rasmussen MD 02/12/23 02:05 AM
[2023-02-12] MEDS ORDERED: oxyCODONE HCL IR 5 MG TAB (IMMEDIATE RELEASE) PO STA (03:33)
[2023-02-12] MEDS ORDERED: IPRATROPIUM BROMIDE NEB SOLN 0.02% 2.5 ML VIAL INH STA (04:07)
[2023-02-12] MEDS ORDERED: XOPENEX/ATROVENT 1.25mg/0.5MG NEB COMBO NEB STA (04:07)
[2023-02-12] MEDS ORDERED: LEVALBUTEROL 1.25MG/0.5ML NEB INH STA (04:08)
[2023-02-12] MEDS ORDERED: SODIUM CHLORIDE 0.9% 1000ML 1,000 ML IV STA (04:16)
--- NOTE | 2023-02-12 04:21 | History & Physical Report ---
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 chronic back pain chronic anemia, hemoglobin at baseline history MRSA bacteremia status post antibiotic Rx Possible functional disability given recurrent admissions past tobacco abuse OBS Medical telemetry Decrease as needed oxycodone dose from 20 mg to 5 to 10 mg (Explained to patient that he is more prone to unwanted side effects with higher dose of narcotic medication given weight loss over the last few months.) Brain MRI Re: Headache CT chest PE study CT abdomen pelvis Re: Abdominal pain ISS BG goal 1 10-1 40, carb count coverage PT OT eval DVT prophylaxis. Lovenox subcu if no bleed on CT Full code Patient verified requesting updates from providers. Miss Teagan Cormier, contact numbers [phone]. Text document was generated using [employer] voice recognition software. It may contain grammatical or spelling errors. Kindly contact undersigned for clarification of any documentation item in question. History of Present Illness Chief Complaint: Confusion, hallucination as per records Primary Care Provider: Wood Genao MD History obtained from patient, family, and records. Patient is a fair historian. 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 Monthly confinements at [facility] since October 2022. Last confinement last month for MRSA bacteremia secondary to port infection, bilateral lobe pneumonia, MRSA cellulitis/radiation dermatitis of the left upper chest. Patient presented with visual hallucinations, seeing mice crawling on the floor. A port removed by surgery and replaced with PICC line. Patient completed IV vancomycin course. Patient not feeling well the last few days. Pleuritic left-sided chest pain with shortness of breath and achy abdominal pain. Denies constipation or dysuria. Same cough symptoms as last visit. Patient noted to have visual hallucinations. Patient a little more confused than usual as per . Seeing mice again similar to confinement from last month. Worsening left-sided headache symptoms. More than 10 pound weight loss over the last 6 months. Medical History as above Surgical History : Eye surgery, knee surgery, tonsillectomy/adenectomy, a port placement/removal Family History : Stomach cancer, colon cancer, heart disease, stroke Personal/Social history : Past tobacco abuse, no EtOH intake, disabled Allergies Allergy/AdvReac Type Severity Reaction Status Date / Time No Known Allergies Allergy Verified 01/18/23 18:07 Home Medications Medication Instructions Recorded Confirmed Type albuterol sulfate 90 mcg/actuation 2 puff inhalation Q4 PRN Wheezing 10/29/22 02/11/23 History aerosol inhaler ipratropium 0.5 mg-albuterol 3 mg 3 ml inhalation Q8H wheezing 10/29/22 02/11/23 History (2.5 mg base)/3 mL nebulization soln tamsulosin 0.4 mg capsule 0.8 mg PO QAM 11/19/22 02/11/23 History prochlorperazine maleate 10 mg 10 mg PO Q6H PRN Nausea 12/08/22 02/11/23 History tablet (Compazine) benzonatate 100 mg capsule 100 mg PO TID PRN cough 12/22/22 02/11/23 History Magic Mouthwash 300 mL mouthwash 10 ml mucous membrane UD PRN 12/24/22 02/11/23 History dysphagia docusate sodium 100 mg tablet 100 mg PO BID 12/24/22 02/11/23 History (Stool Softener) famotidine 20 mg tablet (Pepcid) 10 mg PO BID 12/24/22 02/11/23 History loratadine 10 mg tablet (Claritin) 10 mg PO QAM 12/24/22 02/11/23 History montelukast 10 mg tablet 10 mg PO UD 12/24/22 02/11/23 History sucralfate 100 mg/mL oral 10 ml PO QID #420 mL 01/07/23 02/11/23 Rx suspension (Carafate) silver sulfadiazine 1 % topical 1 applic topical BID #85 grams 01/12/23 02/11/23 Rx cream (Silvadene) oxycodone 20 mg tablet 20 mg PO .4-6 HR PRN Pain 01/18/23 02/11/23 History ferrous sulfate 325 mg (65 mg 325 mg PO DAILYBB 02/11/23 02/11/23 History iron) tablet (FeroSul) Past Med/Surg History Medical History Chemotherapy adverse reaction LAST WEEK: BLOOD PRESSURE DECREASED/ REQUIRING 1 NIGHT HOSPITAL STAY FOR OBSERVATION, [facility] DM type 2 (diabetes mellitus, type 2) Ex-smoker Frequent urination ONGOING ISSUE Hepatitis C Active History of chest pain RECENT DX LUNG CA...TESTING...C/P SUSPECTED TO BE DUE TO TUMOR LOCATION AT LUNG ENTRY - WANTED TO PLACE A STENT/UNABLE TO STENT History of fracture of orbit HX RIGHT ORBITAL FX...SX/TITANIUM IMPLANT History of fractured vertebra History of influenza OCT 2022 History of vascular access device CURRENT/ PT REPORTS BELIEVES HIS IS NON POWER Lung cancer Dx'd 10/14/2022/CURRENTLY CHEMO AND RADIATION Osteoporosis Ruptured intervertebral disc hx Surgical History H/O eye surgery 1996 H/O knee surgery 1999 History of bronchoscopy History of tonsillectomy and adenoidectomy 1972 Port-A-Cath in place (11/25/22) Insertion Access Port with Fluoroscopy Right Internal Jugular Vein(Right) - Colin Hernandez DO PT REPORTS HE THINKS HIS IS A NON POWER PORT Family History Brother Stomach cancer Grandfather (Maternal) Prostate cancer Grandfather (Paternal) Colon cancer Father Heart disease Grandfather Stroke Social History Smoking Status: Former smoker Tobacco Type: Cigarettes packs per day: 1.5; Second Hand Exposure: No; Do You Dip or Chew Tobacco: No; Hx Alcohol Use: No Hx Substance Use: No Preferred Language: Namibian Communication Ability: Effective Visual Impairment: No Limitations Hearing Ability: Normal Consumer Electronic Retail Specialist Required: No Beliefs That Will Affect Care: None Current Living Situation: Significant Other 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 current occupational status: disabled Other Information That Helps Us Care for You: No Feels Safe at Home: Yes Diet: diabetic during the past year weight has: decreased > 10 lbs Assistive Devices: Glasses Review of Systems Review of Systems: As per HPI, all other systems reviewed and negative Physical Exam Physical Exam: GENERAL: Comfortable, oriented to place, chronically ill, no respiratory distress SKIN: Pallor, warm HEENT: Pale palpebral conjunctivae, no ptosis, dry buccal mucosa NECK : Supple, no tenderness CHEST : Decreased breath sounds, occasional expiratory wheezes, no tenderness HEART : Tachycardic, no obvious murmurs ABDOMEN: Some distention, minimal epigastric tenderness EXTREMITIES : No LE swelling/tenderness, no other conspicuous deformities noted NEUROLOGIC : Oriented to place, no facial asymmetry, no other gross focality Results & Data Results & Data Vital Signs (Past 12 Hours) Vital Signs Temp Pulse Pulse Resp BP BP Pulse Ox 02/12/23 02:30 97 H 18 109/70 98 02/12/23 01:33 99 H 02/12/23 01:11 97 H 18 113/69 96 02/11/23 23:00 99 H 18 112/71 97 02/11/23 22:30 97 H 29 H 117/74 100 02/11/23 22:04 97 H 21 114/72 100 02/11/23 21:39 97 H 21 107/72 99 02/11/23 21:37 101 H 02/11/23 20:59 36.9 C 111 H 18 98 O2 Del Method 02/12/23 02:30 Room Air 02/12/23 01:33 02/12/23 01:11 Room Air 02/11/23 23:00 Room Air 02/11/23 22:30 Room Air 02/11/23 22:04 Room Air 02/11/23 21:39 Room Air 02/11/23 21:37 02/11/23 20:59 Room Air Laboratory Results Laboratory Results WBC 7.37 K/ul (4.8-10.8) 02/11/23 21:30 RBC 2.90 M/uL (4.70-6.10) L 02/11/23 21:30 Hgb 8.1 g/dl (14.0-18.0) L 02/11/23 21:30 Hct 26.3 % (42.0-52.0) L 02/11/23 21:30 MCV 90.7 fL (80.0-100.0) 02/11/23 21:30 MCH 27.9 pg (25.0-34.0) 02/11/23 21: MCHC 30.8 g/dL (32.0-36.0) L 02/11/23: RDW Std Deviation 57.1 fL (36.4-46.3) H 02/11/23 21: RDW Coeff of Mathieu 17.2 % (11.5-14.5) H 02/11/23 21: Plt Count 384 K/uL (130-400) 02/11/23 21: MPV 9.2 fL (9.4-12.4) L 02/11/23 21: Immature Gran % (Auto) 0.7 % 02/11/23 21: Neut % (Auto) 74.2 % 02/11/23: Lymph % (Auto) 6.6 % 02/11/23: [place] Zandt % (Auto) 16.8 % 02/11/23 21: Eos % (Auto) 0.9 % 02/11/23: Baso % (Auto) 0.8 % 02/11/23: Neut # (Auto) 5.46 K/uL (1.40-6.50) 02/11/23 21: Lymph # (Auto) 0.49 K/uL (1.2-3.4) L 02/11/23: [place]t # (Auto) 1.24 K/uL (0.11-0.59) H 02/11/23 21:30 Eos # (Auto) 0.07 K/uL (0-0.50) 02/11/23: Baso # (Auto) 0.06 K/uL (0-0.2) 02/11/23: Immature Gran # (Auto) 0.05 K/uL (0.01-0.20) 02/11/23: PT 11.3 Seconds (9.0-12.0) 02/11/23: INR 1.0 (0.9-1.1) 02/11/23: APTT 32.2 Seconds (21.0-31.0) H 02/11/23: PTT Ratio 1.1 02/11/23: Sodium 134 mmol/L (136-145) L 02/11/23 21:30 Potassium 4.0 mmol/L (3.5-5.1) 02/11/23 21:30 Chloride 101 mmol/L (98-107) 02/11/23 21:30 Carbon Dioxide 27 mmol/L (21-32) 02/11/23 21:30 Anion Gap 6 (3-11) 02/11/23 21:30 BUN 19 mg/dl (6-23) 02/11/23 21:30 Creatinine 1.08 mg/dl (0.6-1.4) 02/11/23 21:30 Est Cr Clr Drug Dosing 57.2 ml/min 02/11/23 21:30 Est GFR ( Amer) 84.8 ml/min 02/11/23 21: Est GFR (Non-Af Amer) 73.2 ml/min 02/11/23 21:30 BUN/Creatinine Ratio 17.6 (10-20) 02/11/23 21:30 Glucose 108 mg/dl (70-99(Fasting)) H 02/11/23 21:30 Lactate 0.9 mmol/L (0.4-2.0) 02/11/23 23:00 Calcium 8.7 mg/dl (8.6-10.3) 02/11/23: Magnesium 2.0 mg/dl (1.7-2.4) 02/11/23: Total Bilirubin 0.4 mg/dl (0.2-1.0) 02/11/23 21:30 AST 14 U/L (13-39) 02/11/23: ALT 11 U/L (7-52) 02/11/23 21: Alkaline Phosphatase 71 U/L (34-104) 02/11/23 21:30 Troponin I High Sens 4.8 pg/ml (0-20) 02/11/23 21:30 Total Protein 7.3 gm/dl (6.0-8.3) 02/11/23: Albumin 3.6 gm/dl (3.4-5.0) 02/11/23 21:30 Globulin 3.7 gm/dl (2.5-4.0) 02/11/23 21:30 Albumin/Globulin Ratio 1.0 (0.9-2) 05/03/23 21:30 Procalcitonin 0.12 ng/ml (0-0.5) 02/11/23 23:00 TSH 4.570 uIu/ml (0.300-4.500) H 02/11/23 21:30 Urine Color Dark Yellow 02/12/23 00:29 Urine Appearance Cloudy (Clear) A 02/12/23 00: Urine pH 6.0 (4.5-7.5) 02/12/23 00:29 Ur Specific Sheridan 1.022 (1.000-1.030) 02/12/23 00:29 Urine Protein Trace (Negative) H 02/12/23 00:29 Urine Glucose (UA) Negative (Negative) 02/12/23 00: Urine Ketones Trace (Negative) H 02/12/23 00: Urine Blood Negative (Negative) 02/12/23 00: Urine Nitrite Negative (Negative) 02/12/23 00: Urine Bilirubin Negative (Negative) 02/12/23 00: Urine Urobilinogen Negative (Negative) 02/12/23 00:29 Ur Leukocyte Esterase Negative (Negative) 02/12/23 00:29 Urine WBC (Auto) 1-5 /hpf (0-5) 02/12/23 00: Urine RBC (Auto) 0-4 /hpf (0-4) 02/12/23 00: U Hyaline Cast (Auto) 1-5 /lpf (0-5) 02/12/23 00:29 U Epithel Cells (Auto) 10-20 /lpf (0-5) H 02/12/23 00:29 Urine Bacteria (Auto) Negative (Negative) 02/12/23 00:29 Adenovirus (PCR) Not Detected (NotDetected) 02/11/23 21:59 B. pertussis DNA (PCR) Not Detected (NotDetected) 02/11/23 21:59 B.parapertussis DNA PCR Not Detected (NotDetected) 02/11/23 21:59 C. pneumoniae DNA (PCR) Not Detected (NotDetected) 02/11/23 21:59 Coronavirus OC43 (PCR) Not Detected (NotDetected) 02/11/23 21:59 Coronavirus HKU1 (PCR) Not Detected (NotDetected) 02/11/23 21:59 Coronavirus 229E (PCR) Not Detected (NotDetected) 02/11/23 21:59 SARS-CoV-2 (PCR) Not Detected (NotDetected) 02/11/23 21:59 Coronavirus NL63 (PCR) Not Detected (NotDetected) 02/11/23 21:59 Human Metapneumovir PCR Not Detected (NotDetected) 02/11/23 21:59 Influenza Type A (PCR) Not Detected (NotDetected) 02/11/23 21:59 Influenza Type B (PCR) Not Detected (NotDetected) 02/11/23 21:59 M. pneumoniae (PCR) Not Detected (NotDetected) 02/11/23 21:59 Parainfluenza 1 (PCR) Not Detected (NotDetected) 02/11/23 21:59 Parainfluenza 2 (PCR) Not Detected (NotDetected) 02/11/23 21:59 Parainfluenza 3 (PCR) Not Detected (NotDetected) 02/11/23 21:59 Parainfluenza 4 (PCR) Not Detected (NotDetected) 02/11/23 21:59 RSV (PCR) Not Detected (NotDetected) 02/11/23 21:59 Entero/Rhino (PCR) Not Detected (NotDetected) 02/11/23 21:[address] 02/12/23 00:04 Exam(s): CT CHEST Without Contrast EXAM: CT Chest Without Intravenous Contrast CLINICAL HISTORY: Reason for exam: l-side chest pain, AMS, lung CA, recent pneumonia. TECHNIQUE: Axial computed tomography images of the chest without intravenous contrast. CTDI is 5.48 mGy and DLP is 200.77 mGy-cm. Automated exposure control was utilized for the study. A dose lowering technique was utilized adhering to the principles of ALARA. COMPARISON: Comparison made to prior CT scan of the chest from January 18, 2023. FINDINGS: Lungs: Moderate central peribronchial thickening of the central and peripheral bronchi with small consolidations in the left upper and left lower lobes. Pleural space: Large left pleural effusion. No pneumothorax. Heart: Unremarkable. No cardiomegaly. No significant pericardial effusion. Mild calcified atherosclerotic disease of the coronary arteries. Bones/joints: Remote fracture deformity of the T8 vertebral body. No acute fracture. No dislocation. Soft tissues: Unremarkable. Vasculature: Ectasia of the ascending aorta measured 33 mm in diameter. No thoracic aortic aneurysm. Lymph nodes: Unremarkable. No enlarged lymph nodes. IMPRESSION: Bronchitis with consolidations in the left upper and left lower lobes with large left pleural effusion. Electronically signed by: Steph Rasmussen MD 02/12/23 02:05 AM Diagnostic Findings EKG as per my interpretation : Rate 105, sinus tachycardia, normal axis, no ischemia Code Status & VTE Plan VTE Prophylaxis Plan VTE Prophylaxis will be ordered: Yes
[2023-02-12] MEDS ORDERED: OPTIRAY 320 500ml IV ONE (04:43)
[2023-02-12 07:30] LABS: Basophils # (auto) 0.06 K/uL (0-0.2); Basophils % (auto) 0.9 %; Eosinophils # (auto) 0.08 K/uL (0-0.50); Eosinophils % (auto) 1.1 %; Hematocrit (blood only) 22.9 % (42.0-52.0); Hemoglobin 7.2 g/dl (14.0-18.0); Immature Granulocytes # (auto) 0.04 K/uL (0.01-0.20); Immature Granulocytes % (auto) 0.6 %; Lymphocytes # (auto) 0.38 K/uL (1.2-3.4); Lymphocytes % (auto) 5.5 %; Mean Corpuscular Hgb Conc 31.4 g/dL (32.0-36.0); Mean Corpuscular Volume 89.1 fL (80.0-100.0); Monocytes % (auto) 18.7 %; Neutrophils % (auto) 73.2 %; Platelet Count 359 K/uL (130-400); RDW Coefficient of Variation 17.2 % (11.5-14.5); Red Blood Count 2.57 M/uL (4.70-6.10); White Blood Count 6.96 K/ul (4.8-10.8)
--- NOTE | 2023-02-12 07:44 | XRay Report ---
XR chest 1V portable CLINICAL HISTORY: Altered mental status. Non-small cell lung cancer. COMPARISON STUDY: Chest radiograph and chest CT January 18, 2023. FINDINGS: There is no pneumothorax. A small left pleural effusion has increased in size since prior e xamination. The left upper lobe lesion is better depicted on prior head CT. Asymmetric interstitial t hickening and left lung airspace opacities are present. Vascular congestion. IMPRESSION: 1. Increase in size of a small left pleural effusion with increase in left lung airspace opacity whic h may reflect pneumonia/postobstructive pneumonia. 2. Left upper lobe lesion, better depicted on prior CT. 3. Pulmonary vascular congestion. ACT 112: Negative or not required by law. Electronically signed by: Jace Call M.D. 02/12/2023 7:43 AM
[2023-02-12 07:49] LABS: BUN Creatinine Ratio 15.9 (10-20); Calcium 7.8 mg/dl (8.6-10.3); Creatinine Clr Calc Pharmacy 70.2 ml/min; Est GFR (African American) 106.7 ml/min; Est GFR (Non-African American) 92.1 ml/min; Potassium 4.1 mmol/L (3.5-5.1)
[2023-02-12] MEDS ORDERED: MONTELUKAST SODIUM 10 MG TABLET PO SCH (07:54)
[2023-02-12] MEDS ORDERED: ACETAMINOPHEN 325 MG TAB PO PRN (07:54)
[2023-02-12] MEDS ORDERED: PROMETHAZINE HCL 6.25 MG in SODIUM CHLORIDE 0.9% 50 ML IV PRN (07:54)
[2023-02-12] MEDS ORDERED: BENZONATATE 100 MG CAPSULE PO PRN (07:54)
--- NOTE | 2023-02-12 07:54 | CT Scan Report ---
CT ANGIOGRAM OF THE CHEST; CT SCAN OF THE ABDOMEN AND PELVIS WITH IV CONTRAST CLINICAL HISTORY: Atypical chest pain. Generalized abdominal pain. Lung cancer. COMPARISON STUDY: Chest CT performed the same day 02/12/2023. PET/CT dated 11/05/2022. TECHNIQUE: Following the IV administration of 111 of Optiray 320, CT angiogram of the chest is perfor med from the upper abdomen to the thoracic inlet utilizing the pulmonary embolus protocol. Images are reviewed in the axial, sagittal, coronal planes. 3-D MIPS images are created and assessed. Subsequen tly, CT scan of the abdomen and pelvis was performed from the lung bases to the proximal femora. Imag es are reviewed in the axial, sagittal, and coronal planes. IV contrast was administered without comp lication. A dose lowering technique was utilized adhering to the principles of ALARA. The Examination s are compromised by motion artifact. CT DOSE: 529.74 mGy.cm FINDINGS: CHEST: Thyroid: Imaged portions of the thyroid gland are normal in size and attenuation. Thoracic aorta: There is atherosclerotic calcification of the thoracic aorta, which is normal in blue candelario and demonstrates standard 3-vessel arch anatomy. No dissection is seen. Pulmonary vasculature: The pulmonary trunk is normal in caliber. There are no filling defects identif ied in the main, lobar, or proximal segmental pulmonary arteries to indicate pulmonary embolus. Evalu ation of the segmental and subsegmental branches is compromised by motion artifact. Heart: The heart is normal in size noting a small pericardial effusion. Lungs and pleural spaces: Evaluation of the lung parenchyma is degraded by motion artifact. Moderate emphysema is observed. A cavitary left perihilar/suprahilar mass lesion is unchanged from previous. T his measures approximately 5 x 4.5 x 3 cm as seen on image #189. Intraoperative septal thickening and nodularity with groundglass opacities seen throughout the left upper and left lower lobes could repr esent lymphangitic spread of tumor and/or post obstructive pneumonitis. An irregular left lower lobe nodule on image #95 measures 1.4 cm. The left hilar mass encases and includes several left hilar stru ctures. There is a moderate left pleural effusion with associated atelectasis. The trachea is clear. Debris is noted in the left mainstem bronchus. The right lung appears clear. Mediastinum: Mediastinal lymphadenopathy is unchanged. AP window nodes measure up to 1.6 x 1.5 cm.. Katelynn: An enlarged right hilar node measures 1.6 cm short axis. The jefferson obscured by the perihilar mas s. Axillae: There is no axillary lymphadenopathy. Bony thorax: The skeletal structures are osteopenic. No lytic or blastic lesions are identified. Ther e is chronic deformity of the right clavicle. ABDOMEN AND PELVIS: Liver: The contrast-enhanced liver is normal in size, contour, and attenuation. There is no intrahepa tic biliary ductal dilatation. The hepatic veins and portal veins are patent. Gallbladder: Unremarkable. Spleen: Normal in size and attenuation. Pancreas: Unremarkable. Adrenal glands: Unremarkable. Kidneys: The contrast enhanced kidneys are normal in size and without hydronephrosis. The kidneys enh ance symmetrically. Abdominal vasculature: The abdominal aorta is normal in course and caliber noting moderate to advance d atherosclerotic calcification. Bowel: There is rectosigmoid fecal impaction and moderate constipation. No bowel obstruction is seen. The appendix is not visualized. Peritoneum: There is no intraperitoneal free air or abdominal ascites. Lymphadenopathy: None. Pelvic viscera: The prostate gland is enlarged and heterogeneous nothing median lobe hypertrophy. The bladder wall is thickened/trabeculated indicating chronic outlet obstruction. Skeletal structures: The skeletal structures are osteopenic. The skeletal structures are osteopenic. There is mild to moderate lumbosacral spondylosis. There is a mild chronic compression deformity of L 2. No lytic or blastic lesions are seen. IMPRESSION: 1. Motion compromised examinations. 2. There is no evidence of central pulmonary embolus in the main, lobar, or proximal segmental pulmon rosa arteries. 3. Emphysema. 4. A cavitary left perihilar/suprahilar mass lesion is unchanged. This encases and occludes several l eft hilar structures. 5. Intralobular septal thickening and nodularity with groundglass change is seen throughout the left upper and left lower lung. This could represent lymphangitic spread of tumor and/or an infectious/inf lammatory/postobstructive pneumonitis. Correlate clinically. 6. Moderate left pleural effusion with left basilar atelectasis. 7. No acute infectious or inflammatory findings are identified in the abdomen or pelvis. 8. Rectosigmoid fecal impaction and moderate constipation. 9. There is no evidence of metastatic disease below the diaphragm. 10. Additional findings as above. ACT 112: Negative or not required by law. Electronically signed by: Jono Blanco M.D. 02/12/2023 7:52 AM
[2023-02-12 08:07] LABS: Ovalocytes 1+; Polychromasia 1+
[2023-02-12] MEDS ORDERED: GADOBUTROL 65ML VIAL IV ONE (08:34)
[2023-02-12] MEDS: SUCRALFATE 1 GM/10 ML UDC PO SCH ×3 (08:57→18:16)
[2023-02-12] MEDS: TAMSULOSIN HCL 0.4 MG CAP PO SCH (08:58)
[2023-02-12] MEDS: DOCUSATE SODIUM 100 MG CAP PO SCH ×2 (08:58→21:36)
[2023-02-12] MEDS: FERROUS SULFATE 325 MG TAB PO SCH (08:58)
[2023-02-12] MEDS: FAMOTIDINE 10 MG TABLET PO SCH ×2 (08:58→21:36)
[2023-02-12] MEDS: LORATADINE 10 MG TAB PO SCH (08:58)
[2023-02-12] MEDS: HEPARIN SOD 5,000 UNIT/0.5 ML VIAL SQ SCH ×2 (09:00→13:11)
[2023-02-12] MEDS: oxyCODONE HCL IR 5 MG TAB (IMMEDIATE RELEASE) PO PRN ×2 (09:02→18:17)
--- NOTE | 2023-02-12 09:30 | Magnetic Resonance Report ---
MRI OF THE BRAIN WITHOUT AND WITH IV CONTRAST CLINICAL HISTORY: Worsening left-sided headache. Lung cancer. COMPARISON STUDY: MRI of the brain October 14, [address] January 18, 2023. TECHNIQUE: Utilizing a 1.5 Su magnet and dedicated coil, multiplanar, multiecho imaging of the br ain was performed pre and postcontrast administration. IV administration of 5.5 mL of Gadavist contr ast was uneventful. FINDINGS: There are no foci of restricted diffusion to suggest acute infarct. No acute intracranial h emorrhage, midline shift or mass effect is present. Ventricular system is normal. Basal cisterns are patent. There are no extra axial collections. Flow-voids for the major intracranial vessels are prese nt. No intracranial mass or pathologic enhancement is identified. A T2 hypointense focus within the c livus is unchanged since prior MRI. Therefore, this is probably benign. A few punctate white matter T 2 hyperintense foci are unchanged. There has been no change in appearance of the brain. IMPRESSION: 1. No acute intracranial findings. 2. No change in appearance of the brain. No convincing evidence for metastatic disease. ACT 112: Negative or not required by law. Electronically signed by: Jace Call M.D. 02/12/2023 9:28 AM
[2023-02-12] MEDS ORDERED: MAGNESIUM HYDROXIDE SUSP 30 ML UDC PO ONE (10:26)
--- NOTE | 2023-02-12 10:42 | Electrocardiogram Report ---
Test Reason : Blood Pressure : / mmHG Vent. Rate : 101 BPM Atrial Rate : 101 BPM P-R Int : 126 ms QRS Dur : 078 ms QT Int : 334 ms P-R-T Axes : 047 057 054 degrees QTc Int : 433 ms Poor data quality, interpretation may be adversely affected Sinus tachycardia with Premature atrial complexes Otherwise normal ECG When compared with ECG of 18-JAN-2023 14:49, Premature atrial complexes are now Present Confirmed by Kevin Higginbotham ([id number]) on 02/12/2023 10:41:39 AM Referred By: REFERRED SELF Confirmed By:Kevin Higginbotham
[2023-02-12] MEDS: POLYETHYLENE (MIRALAX) 17 GM PACK PO SCH (11:21)
[2023-02-12] MEDS ORDERED: DEXTROSE 50% 50 ML SYRINGE IV PRN (11:54)
[2023-02-12] MEDS ORDERED: CARBOHYDRATES FOR HYPOGLYCEMIA PO PRN (11:54)
[2023-02-12] MEDS ORDERED: GLUCOSE 40% GEL 15 GM TUBE PO PRN (11:54)
[2023-02-12] MEDS ORDERED: GLUCOSE 10 TAB/TUBE PO PRN (11:54)
[2023-02-12] MEDS ORDERED: GLUCAGON FOR INJ 1 MG VIAL SQ PRN (11:54)
[2023-02-12] MEDS: INSULIN ASPART PER UNIT CHARGE SC SCH ×2 (12:36→18:16)
--- NOTE | 2023-02-12 14:54 | Communication Note ---
Date of Service: February 12, 2023 Patient is a 62-year-old male with history of recently diagnosed lung cancer, status postchemotherapy and radiation therapy, recently treated for MRSA pneumon ia/bacteremia with vancomycin (completed on February 04, 2023) was brought to the ED by his girlfriend for altered mental status And visual hallucination. Patient seen and examined at bedside. He is alert oriented x3. Denies any visual hallucinations. Physical exam; Constitutional: Alert orient x3; not in any distress. Respiratory: normal respiratory effort, lungs clear to auscultation, no wheeze, rales, rhonchi. Normal insp/exp effort, no accessory muscle use Cardiovascular: RRR, no murmur, no edema Vessels: no JVD or carotid bruit Chest: normal inspection of chest Abdomen: normal bowel sounds, soft, nontender, no hepatosplenomegaly Musculoskeletal: no cyanosis or clubbing, extremities motor strength 5/5 Skin: no rashes, warm and dry normal turgor Neurologic: PERRL, EOMI, accommodation nl, no face palsy, no dysarthria CN's II- XI intact bilaterally and moves all extremities Psychiatric: A+Ox3, euthymic affect Lymphatic: no cervical or axillary lymphadenopathy : deferred Assessment/plan: Altered mental status likely due to medication ( Opoids) MRI brain ruled out any acute intracranial finding or metastatic disease. Urinalysis not suggestive of infection Pro-Renzo negative Oxycodone dose decreased from 20 mg to 5 to 10 mg as needed. Blood culture pending Will monitor for 24 hours; if patient continues to be alert orient x3 and blood cultures are negative. Will likely discharge home tomorrow. Patient reports he will reschedule follow-up with his oncologist (which was today) Please note the above document was generated using voice recognition software. It may contain grammatical, syntax or spelling errors. Any formal questions or concerns about the content, text or information contained within the body of this dictation should be directly addressed to the provider for clarification
[2023-02-13] MEDS: INSULIN ASPART PER UNIT CHARGE SC SCH ×2 (00:39→09:05)
[2023-02-13] MEDS: SUCRALFATE 1 GM/10 ML UDC PO SCH ×2 (00:40→09:07)
[2023-02-13] MEDS: HEPARIN SOD 5,000 UNIT/0.5 ML VIAL SQ SCH ×2 (00:40→05:06)
[2023-02-13] MEDS: oxyCODONE HCL IR 5 MG TAB (IMMEDIATE RELEASE) PO PRN (04:13)
[2023-02-13] MEDS: FERROUS SULFATE 325 MG TAB PO SCH (07:20)
[2023-02-13 08:07] LABS: Basophils # (auto) 0.06 K/uL (0-0.2); Eosinophils # (auto) 0.07 K/uL (0-0.50); Eosinophils % (auto) 1.1 %; Hematocrit (blood only) 25.3 % (42.0-52.0); Hemoglobin 7.9 g/dl (14.0-18.0); Immature Granulocytes # (auto) 0.04 K/uL (0.01-0.20); Immature Granulocytes % (auto) 0.6 %; Lymphocytes # (auto) 0.43 K/uL (1.2-3.4); Lymphocytes % (auto) 6.9 %; Mean Corpuscular Hemoglobin 27.7 pg (25.0-34.0); Mean Corpuscular Hgb Conc 31.2 g/dL (32.0-36.0); Mean Corpuscular Volume 88.8 fL (80.0-100.0); Mean Platelet Volume 9.2 fL (9.4-12.4); Monocytes # (auto) 1.18 K/uL (0.11-0.59); Neutrophils # (auto) 4.44 K/uL (1.40-6.50); Neutrophils % (auto) 71.4 %; Platelet Count 361 K/uL (130-400); RDW Coefficient of Variation 16.9 % (11.5-14.5); RDW Standard Deviation 54.8 fL (36.4-46.3); Red Blood Count 2.85 M/uL (4.70-6.10); White Blood Count 6.22 K/ul (4.8-10.8)
[2023-02-13 08:29] LABS: Polychromasia 1+
[2023-02-13 08:31] LABS: BUN Creatinine Ratio 13.5 (10-20); Calcium 8.2 mg/dl (8.6-10.3); Creatinine Clr Calc Pharmacy 65.9 ml/min; Est GFR (African American) 106.2 ml/min; Est GFR (Non-African American) 91.6 ml/min; Potassium 3.9 mmol/L (3.5-5.1)
[2023-02-13] MEDS: DOCUSATE SODIUM 100 MG CAP PO SCH (09:06)
[2023-02-13] MEDS: LORATADINE 10 MG TAB PO SCH (09:06)
[2023-02-13] MEDS: POLYETHYLENE (MIRALAX) 17 GM PACK PO SCH (09:07)
[2023-02-13] MEDS: TAMSULOSIN HCL 0.4 MG CAP PO SCH (09:07)
[2023-02-13] MEDS: FAMOTIDINE 10 MG TABLET PO SCH (09:50)
--- NOTE | 2023-02-13 16:49 | Discharge Summary ---
Date of Service February 13, 2023 Admission HPI Per Admitting Provider History obtained from patient, family, and records. Patient is a fair historian. 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 Monthly confinements at [facility] since October 2022. Last confinement last month for MRSA bacteremia secondary to port infection, bilateral lobe pneumonia, MRSA cellulitis/radiation dermatitis of the left upper chest. Patient presented with visual hallucinations, seeing mice crawling on the floor. A port removed by surgery and replaced with PICC line. Patient completed IV vancomycin course. Patient not feeling well the last few days. Pleuritic left-sided chest pain with shortness of breath and achy abdominal pain. Denies constipation or dysuria. Same cough symptoms as last visit. Patient noted to have visual hallucinations. Patient a little more confused than usual as per . Seeing mice again similar to confinement from last month. Worsening left-sided headache symptoms. More than 10 pound weight loss over the last 6 months. Medical History as above Surgical History : Eye surgery, knee surgery, tonsillectomy/adenectomy, a port placement/removal Family History : Stomach cancer, colon cancer, heart disease, stroke Personal/Social history : Past tobacco abuse, no EtOH intake, disabled Admission Exam Per Admitting Provider GENERAL: Comfortable, oriented to place, chronically ill, no respiratory distress SKIN: Pallor, warm HEENT: Pale palpebral conjunctivae, no ptosis, dry buccal mucosa NECK : Supple, no tenderness CHEST : Decreased breath sounds, occasional expiratory wheezes, no tenderness HEART : Tachycardic, no obvious murmurs ABDOMEN: Some distention, minimal epigastric tenderness EXTREMITIES : No LE swelling/tenderness, no other conspicuous deformities noted NEUROLOGIC : Oriented to place, no facial asymmetry, no other gross focality Principal Diagnosis Hallucination, likely hallucination likely medication side effect. Lung cancer on chemo Discharge Exam General: Lying comfortably in bed, not in distress, on room air HEENT: EOMI, SUZY, MMM Chest: Fair breath sounds bilaterally, no wheezes or crackles CVS: Regular, normal heart sounds, no murmur Abdomen: Soft, non tender, not distended, normal bowel sounds Neuro: Awake, alert, oriented, conversing well, non focal Extremities: No cyanosis, clubbing or edema Discharge Data Allergies Allergy/AdvReac Type Severity Reaction Status Date / Time No Known Allergies Allergy Verified 01/18/23 18:07 Consultations 02/12/23 02:28 ED Decision to Admit Stat Ordered Studies 02/12/23 00:04 CT chest diagnostic wo con Stat 02/12/23 04:10 CT Abd and Pelvis [CT abd pelvis IV con only] Stat CT angio chest PE protocol Stat 02/12/23 04:14 MRI Brain [MR brain wo/w con] Stat Laboratory Results WBC 6.22 K/ul (4.8-10.8) 02/13/23 07:38 RBC 2.85 M/uL (4.70-6.10) L 02/13/23 07:38 Hgb 7.9 g/dl (14.0-18.0) L 02/13/23 07:38 Hct 25.3 % (42.0-52.0) L 02/13/23 07:38 MCV 88.8 fL (80.0-100.0) 02/13/23 07:38 MCH 27.7 pg (25.0-34.0) 02/13/23 07:38 MCHC 31.2 g/dL (32.0-36.0) L 02/13/23 07:38 RDW Std Deviation 54.8 fL (36.4-46.3) H 02/13/23 07:38 RDW Coeff of Mathieu 16.9 % (11.5-14.5) H 02/13/23 07:38 Plt Count 361 K/uL (130-400) 02/13/23 07:38 MPV 9.2 fL (9.4-12.4) L 02/13/23 07:38 Immature Gran % (Auto) 0.6 % 02/13/23 07:38 Neut % (Auto) 71.4 % 02/13/23 07:38 Lymph % (Auto) 6.9 % 02/13/23 07:38 [place] % (Auto) 19.0 % 02/13/23 07:38 Eos % (Auto) 1.1 % 02/13/23 07:38 Baso % (Auto) 1.0 % 02/13/23 07:38 Neut # (Auto) 4.44 K/uL (1.40-6.50) 02/13/23 07:38 Lymph # (Auto) 0.43 K/uL (1.2-3.4) L 02/13/23 07:38 [place] # (Auto) 1.18 K/uL (0.11-0.59) H 02/13/23 07:38 Eos # (Auto) 0.07 K/uL (0-0.50) 02/13/23 07:38 Baso # (Auto) 0.06 K/uL (0-0.2) 02/13/23 07:38 Immature Gran # (Auto) 0.04 K/uL (0.01-0.20) 02/13/23 07:38 Polychromasia 1+ 02/13/23 07:38 Ovalocytes 1+ 02/12/23 07:14 PT 11.3 Seconds (9.0-12.0) 02/11/23 21:30 INR 1.0 (0.9-1.1) 02/11/23 21:30 APTT 32.2 Seconds (21.0-31.0) H 02/11/23 21:30 PTT Ratio 1.1 02/11/23 21:30 Sodium 134 mmol/L (136-145) L 02/13/23 07:38 Potassium 3.9 mmol/L (3.5-5.1) 02/13/23 07:38 Chloride 100 mmol/L (98-107) 02/13/23 07:38 Carbon Dioxide 26 mmol/L (21-32) 02/13/23 07:38 Anion Gap 8 (3-11) 02/13/23 07:38 BUN 12 mg/dl (6-23) 02/13/23 07:38 Creatinine 0.89 mg/dl (0.6-1.4) 02/13/23 07:38 Est Cr Clr Drug Dosing 65.9 ml/min 02/13/23 07:38 Est GFR ( Amer) 106.2 ml/min 02/13/23 07:38 Est GFR (Non-Af Amer) 91.6 ml/min 02/13/23 07:38 BUN/Creatinine Ratio 13.5 (10-20) 02/13/23 07:38 Glucose 99 mg/dl (70-99(Fasting)) 02/13/23 07:38 POC Glucose 105 mg/dl (70-99) H 02/12/23 17:11 Lactate 0.9 mmol/L (0.4-2.0) 02/11/23 23:00 Calcium 8.2 mg/dl (8.6-10.3) L 02/13/23 07:38 Magnesium 2.0 mg/dl (1.7-2.4) 02/11/23 21:30 Total Bilirubin 0.4 mg/dl (0.2-1.0) 02/11/23 21:30 AST 14 U/L (13-39) 02/11/23 21:30 ALT 11 U/L (7-52) 02/11/23 21:30 Alkaline Phosphatase 71 U/L (34-104) 02/11/23 21:30 Ammonia 22.0 umol/L (18-72) 02/12/23 07:14 Troponin I High Sens 4.8 pg/ml (0-20) 02/11/23 21:30 Total Protein 7.3 gm/dl (6.0-8.3) 02/11/23 21:30 Albumin 3.6 gm/dl (3.4-5.0) 02/11/23 21:30 Globulin 3.7 gm/dl (2.5-4.0) 02/11/23 21:30 Albumin/Globulin Ratio 1.0 (0.9-2) 02/11/23 21:30 Procalcitonin 0.12 ng/ml (0-0.5) 02/11/23 23:00 TSH 4.570 uIu/ml (0.300-4.500) H 02/11/23 21:30 Urine Color Dark Yellow 02/12/23 00:29 Urine Appearance Cloudy (Clear) A 02/12/23 00:29 Urine pH 6.0 (4.5-7.5) 02/12/23 00:29 Ur Specific [place] 1.022 (1.000-1.030) 02/12/23 00:29 Urine Protein Trace (Negative) H 02/12/23 00:29 Urine Glucose (UA) Negative (Negative) 02/12/23 00:29 Urine Ketones Trace (Negative) H 02/12/23 00:29 Urine Blood Negative (Negative) 02/12/23 00:29 Urine Nitrite Negative (Negative) 02/12/23 00:29 Urine Bilirubin Negative (Negative) 02/12/23 00:29 Urine Urobilinogen Negative (Negative) 02/12/23 00:29 Ur Leukocyte Esterase Negative (Negative) 02/12/23 00:29 Urine WBC (Auto) 1-5 /hpf (0-5) 02/12/23 00:29 Urine RBC (Auto) 0-4 /hpf (0-4) 02/12/23 00:29 U Hyaline Cast (Auto) 1-5 /lpf (0-5) 02/12/23 00:29 U Epithel Cells (Auto) 10-20 /lpf (0-5) H 02/12/23 00:29 Urine Bacteria (Auto) Negative (Negative) 02/12/23 00:29 Adenovirus (PCR) Not Detected (NotDetected) 02/11/23 21:59 B. pertussis DNA (PCR) Not Detected (NotDetected) 02/11/23 21:59 B.parapertussis DNA PCR Not Detected (NotDetected) 02/11/23 21:59 C. pneumoniae DNA (PCR) Not Detected (NotDetected) 02/11/23 21:59 Coronavirus OC43 (PCR) Not Detected (NotDetected) 02/11/23 21:59 Coronavirus HKU1 (PCR) Not Detected (NotDetected) 02/11/23 21:59 Coronavirus 229E (PCR) Not Detected (NotDetected) 02/11/23 21:59 SARS-CoV-2 (PCR) Not Detected (NotDetected) 02/11/23 21:59 Coronavirus NL63 (PCR) Not Detected (NotDetected) 02/11/23 21:59 Human Metapneumovir PCR Not Detected (NotDetected) 02/11/23 21:59 Influenza Type A (PCR) Not Detected (NotDetected) 02/11/23 21:59 Influenza Type B (PCR) Not Detected (NotDetected) 02/11/23 21:59 M. pneumoniae (PCR) Not Detected (NotDetected) 02/11/23 21:59 Parainfluenza 1 (PCR) Not Detected (NotDetected) 02/11/23 21:59 Parainfluenza 2 (PCR) Not Detected (NotDetected) 02/11/23 21:59 Parainfluenza 3 (PCR) Not Detected (NotDetected) 02/11/23 21:59 Parainfluenza 4 (PCR) Not Detected (NotDetected) 02/11/23 21:59 RSV (PCR) Not Detected (NotDetected) 02/11/23 21:59 Entero/Rhino (PCR) Not Detected (NotDetected) 02/11/23 21:59 Impressions Chest X-Ray 02/11/23 21:54 XR chest 1V portable CLINICAL HISTORY: Altered mental status. Non-small cell lung cancer. COMPARISON STUDY: Chest radiograph and chest CT January 18, 2023. FINDINGS: There is no pneumothorax. A small left pleural effusion has increased in size since prior examination. The left upper lobe lesion is better depicted on prior head CT. Asymmetric interstitial thickening and left lung airspace opacities are present. Vascular congestion. IMPRESSION: 1. Increase in size of a small left pleural effusion with increase in left lung airspace opacity which may reflect pneumonia/postobstructive pneumonia. 2. Left upper lobe lesion, better depicted on prior CT. 3. Pulmonary vascular congestion. ACT 112: Negative or not required by law. Electronically signed by: Jace Call M.D. 02/12/2023 7:[address] 02/12/23 00:04 Exam(s): CT CHEST Without Contrast EXAM: CT Chest Without Intravenous Contrast CLINICAL HISTORY: Reason for exam: l-side chest pain, AMS, lung CA, recent pneumonia. TECHNIQUE: Axial computed tomography images of the chest without intravenous contrast. CTDI is 5.48 mGy and DLP is 200.77 mGy-cm. Automated exposure control was utilized for the study. A dose lowering technique was utilized adhering to the principles of ALARA. COMPARISON: Comparison made to prior CT scan of the chest from January 18, 2023. FINDINGS: Lungs: Moderate central peribronchial thickening of the central and peripheral bronchi with small consolidations in the left upper and left lower lobes. Pleural space: Large left pleural effusion. No pneumothorax. Heart: Unremarkable. No cardiomegaly. No significant pericardial effusion. Mild calcified atherosclerotic disease of the coronary arteries. Bones/joints: Remote fracture deformity of the T8 vertebral body. No acute fracture. No dislocation. Soft tissues: Unremarkable. Vasculature: Ectasia of the ascending aorta measured 33 mm in diameter. No thoracic aortic aneurysm. Lymph nodes: Unremarkable. No enlarged lymph nodes. IMPRESSION: Bronchitis with consolidations in the left upper and left lower lobes with large left pleural effusion. Electronically signed by: Steph Rasmussen MD 02/12/23 02:05 AM Abdomen/Pelvis CT 02/12/23 04:10 CT ANGIOGRAM OF THE CHEST; CT SCAN OF THE ABDOMEN AND PELVIS WITH IV CONTRAST CLINICAL HISTORY: Atypical chest pain. Generalized abdominal pain. Lung cancer. COMPARISON STUDY: Chest CT performed the same day 02/12/2023. PET/CT dated 11/05/2022. TECHNIQUE: Following the IV administration of 111 of Optiray 320, CT angiogram of the chest is performed from the upper abdomen to the thoracic inlet utilizing the pulmonary embolus protocol. Images are reviewed in the axial, sagittal, coronal planes. 3-D MIPS images are created and assessed. Subsequently, CT scan of the abdomen and pelvis was performed from the lung bases to the proximal femora. Images are reviewed in the axial, sagittal, and coronal planes. IV contrast was administered without complication. A dose lowering technique was utilized adhering to the principles of ALARA. The Examinations are compromised by motion artifact. CT DOSE: 529.74 mGy.cm FINDINGS: CHEST: Thyroid: Imaged portions of the thyroid gland are normal in size and attenuation. Thoracic aorta: There is atherosclerotic calcification of the thoracic aorta, which is normal in caliber and demonstrates standard 3-vessel arch anatomy. No dissection is seen. Pulmonary vasculature: The pulmonary trunk is normal in caliber. There are no filling defects identified in the main, lobar, or proximal segmental pulmonary a rteries to indicate pulmonary embolus. Evaluation of the segmental and subsegmental branches is compromised by motion artifact. Heart: The heart is normal in size noting a small pericardial effusion. Lungs and pleural spaces: Evaluation of the lung parenchyma is degraded by motion artifact. Moderate emphysema is observed. A cavitary left perihilar/suprahilar mass lesion is unchanged from previous. This measures approximately 5 x 4.5 x 3 cm as seen on image #189. Intraoperative septal thickening and nodularity with groundglass opacities seen throughout the left upper and left lower lobes could represent lymphangitic spread of tumor and/or post obstructive pneumonitis. An irregular left lower lobe nodule on image #95 measures 1.4 cm. The left hilar mass encases and includes several left hilar structures. There is a moderate left pleural effusion with associated atelectasis. The trachea is clear. Debris is noted in the left mainstem bronchus. The right lung appears clear. Mediastinum: Mediastinal lymphadenopathy is unchanged. AP window nodes measure up to 1.6 x 1.5 cm.. Katelynn: An enlarged right hilar node measures 1.6 cm short axis. The jefferson obscured by the perihilar mass. Axillae: There is no axillary lymphadenopathy. Bony thorax: The skeletal structures are osteopenic. No lytic or blastic lesions are identified. There is chronic deformity of the right clavicle. ABDOMEN AND PELVIS: Liver: The contrast-enhanced liver is normal in size, contour, and attenuation. There is no intrahepatic biliary ductal dilatation. The hepatic veins and portal veins are patent. Gallbladder: Unremarkable. Spleen: Normal in size and attenuation. Pancreas: Unremarkable. Adrenal glands: Unremarkable. Kidneys: The contrast enhanced kidneys are normal in size and without hydronephrosis. The kidneys enhance symmetrically. Abdominal vasculature: The abdominal aorta is normal in course and caliber noting moderate to advanced atherosclerotic calcification. Bowel: There is rectosigmoid fecal impaction and moderate constipation. No bowel obstruction is seen. The appendix is not visualized. Peritoneum: There is no intraperitoneal free air or abdominal ascites. Lymphadenopathy: None. Pelvic viscera: The prostate gland is enlarged and heterogeneous nothing median lobe hypertrophy. The bladder wall is thickened/trabeculated indicating chronic outlet obstruction. Skeletal structures: The skeletal structures are osteopenic. The skeletal structures are osteopenic. There is mild to moderate lumbosacral spondylosis. There is a mild chronic compression deformity of L2. No lytic or blastic lesions are seen. IMPRESSION: 1. Motion compromised examinations. 2. There is no evidence of central pulmonary embolus in the main, lobar, or proximal segmental pulmonary arteries. 3. Emphysema. 4. A cavitary left perihilar/suprahilar mass lesion is unchanged. This encases and occludes several left hilar structures. 5. Intralobular septal thickening and nodularity with groundglass change is seen throughout the left upper and left lower lung. This could represent lymphangitic spread of tumor and/or an infectious/inflammatory/postobstructive pneumonitis. Correlate clinically. 6. Moderate left pleural effusion with left basilar atelectasis. 7. No acute infectious or inflammatory findings are identified in the abdomen or pelvis. 8. Rectosigmoid fecal impaction and moderate constipation. 9. There is no evidence of metastatic disease below the diaphragm. 10. Additional findings as above. ACT 112: Negative or not required by law. Electronically signed by: Jono Blanco M.D. 02/12/2023 7:52 AM Chest CTA 02/12/23 04:10 CT ANGIOGRAM OF THE CHEST; CT SCAN OF THE ABDOMEN AND PELVIS WITH IV CONTRAST CLINICAL HISTORY: Atypical chest pain. Generalized abdominal pain. Lung cancer. COMPARISON STUDY: Chest CT performed the same day 02/12/2023. PET/CT dated 11/05/2022. TECHNIQUE: Following the IV administration of 111 of Optiray 320, CT angiogram of the chest is performed from the upper abdomen to the thoracic inlet utilizing the pulmonary embolus protocol. Images are reviewed in the axial, sagittal, coronal planes. 3-D MIPS images are created and assessed. Subsequently, CT scan of the abdomen and pelvis was performed from the lung bases to the proximal femora. Images are reviewed in the axial, sagittal, and coronal planes. IV contrast was administered without complication. A dose lowering technique was utilized adhering to the principles of ALARA. The Examinations are compromised by motion artifact. CT DOSE: 529.74 mGy.cm FINDINGS: CHEST: Thyroid: Imaged portions of the thyroid gland are normal in size and attenuation. Thoracic aorta: There is atherosclerotic calcification of the thoracic aorta, which is normal in caliber and demonstrates standard 3-vessel arch anatomy. No dissection is seen. Pulmonary vasculature: The pulmonary trunk is normal in caliber. There are no filling defects identified in the main, lobar, or proximal segmental pulmonary arteries to indicate pulmonary embolus. Evaluation of the segmental and subsegmental branches is compromised by motion artifact. Heart: The heart is normal in size noting a small pericardial effusion. Lungs and pleural spaces: Evaluation of the lung parenchyma is degraded by motion artifact. Moderate emphysema is observed. A cavitary left perihilar/suprahilar mass lesion is unchanged from previous. This measures approximately 5 x 4.5 x 3 cm as seen on image #189. Intraoperative septal thickening and nodularity with groundglass opacities seen throughout the left upper and left lower lobes could represent lymphangitic spread of tumor and/or post obstructive pneumonitis. An irregular left lower lobe nodule on image #95 measures 1.4 cm. The left hilar mass encases and includes several left hilar structures. There is a moderate left pleural effusion with associated atelectasis. The trachea is clear. Debris is noted in the left mainstem bronchus. The right lung appears clear. Mediastinum: Mediastinal lymphadenopathy is unchanged. AP window nodes measure up to 1.6 x 1.5 cm.. Katelynn: An enlarged right hilar node measures 1.6 cm short axis. The jefferson obscured by the perihilar mass. Axillae: There is no axillary lymphadenopathy. Bony thorax: The skeletal structures are osteopenic. No lytic or blastic lesions are identified. There is chronic deformity of the right clavicle. ABDOMEN AND PELVIS: Liver: The contrast-enhanced liver is normal in size, contour, and attenuation. There is no intrahepatic biliary ductal dilatation. The hepatic veins and portal veins are patent. Gallbladder: Unremarkable. Spleen: Normal in size and attenuation. Pancreas: Unremarkable. Adrenal glands: Unremarkable. Kidneys: The contrast enhanced kidneys are normal in size and without hydronephrosis. The kidneys enhance symmetrically. Abdominal vasculature: The abdominal aorta is normal in course and caliber noting moderate to advanced atherosclerotic calcification. Bowel: There is rectosigmoid fecal impaction and moderate constipation. No bowel obstruction is seen. The appendix is not visualized. Peritoneum: There is no intraperitoneal free air or abdominal ascites. Lymphadenopathy: None. Pelvic viscera: The prostate gland is enlarged and heterogeneous nothing median lobe hypertrophy. The bladder wall is thickened/trabeculated indicating chronic outlet obstruction. Skeletal structures: The skeletal structures are osteopenic. The skeletal structures are osteopenic. There is mild to moderate lumbosacral spondylosis. There is a mild chronic compression deformity of L2. No lytic or blastic lesions are seen. IMPRESSION: 1. Motion compromised examinations. 2. There is no evidence of central pulmonary embolus in the main, lobar, or proximal segmental pulmonary arteries. 3. Emphysema. 4. A cavitary left perihilar/suprahilar mass lesion is unchanged. This encases and occludes several left hilar structures. 5. Intralobular septal thickening and nodularity with groundglass change is seen throughout the left upper and left lower lung. This could represent lymphangitic spread of tumor and/or an infectious/inflammatory/postobstructive pneumonitis. Correlate clinically. 6. Moderate left pleural effusion with left basilar atelectasis. 7. No acute infectious or inflammatory findings are identified in the abdomen or pelvis. 8. Rectosigmoid fecal impaction and moderate constipation. 9. There is no evidence of metastatic disease below the diaphragm. 10. Additional findings as above. ACT 112: Negative or not required by law. Electronically signed by: Jono Blanco M.D. 02/12/2023 7:52 AM Brain MRI 02/12/23 04:14 MRI OF THE BRAIN WITHOUT AND WITH IV CONTRAST CLINICAL HISTORY: Worsening left-sided headache. Lung cancer. COMPARISON STUDY: MRI of the brain October 14, [address] January 18, 2023. TECHNIQUE: Utilizing a 1.5 Su magnet and dedicated coil, multiplanar, multiecho imaging of the brain was performed pre and postcontrast administration. IV administration of 5.5 mL of Gadavist contrast was uneventful. FINDINGS: There are no foci of restricted diffusion to suggest acute infarct. No acute intracranial hemorrhage, midline shift or mass effect is present. Ventricular system is normal. Basal cisterns are patent. There are no extra axial collections. Flow-voids for the major intracranial vessels are present. No intracranial mass or pathologic enhancement is identified. A T2 hypointense focus within the clivus is unchanged since prior MRI. Therefore, this is probably benign. A few punctate white matter T2 hyperintense foci are unchanged. There has been no change in appearance of the brain. IMPRESSION: 1. No acute intracranial findings. 2. No change in appearance of the brain. No convincing evidence for metastatic disease. ACT 112: Negative or not required by law. Electronically signed by: Jace Call M.D. 02/12/2023 9:28 AM Hospital Course (1) Acute alteration in mental status: (2) Visual hallucination: (3) Medication side effect: Plan Patient came to the ED with altered mental status and visualizations, suspected to be from his high-dose narcotics (he was on oxy 5 mg prn but was changed to 20 mg prn for uncontrolled pain). Work-up has been unremarkable so far with negative MRI brain, no evidence of infection in work-up, no hypoxia, no leukocytosis, Hb stable, electrolytes stable. CTA chest/abd reviewed. His oxycodone was reduced. His hallucinations have completely resolved completely and he is back to his baseline. He is comfortable and stable for discharge home. Recommended cutting down oxycodone to 10 Mg every 6-8 hours as needed for his pain. He just saw his PCP last week and is scheduled to see his oncologist next week. Reviewed discharge plan with patient and at bedside. Other medical conditions Small cell lung cancer status post chemoradiation DM 2 diet-controlled, hemoglobin A1c of 6.12 October 2022 HCV, has not been treated. Chronic back pain Chronic anemia, hemoglobin at baseline History MRSA bacteremia status post antibiotic Rx Past tobacco abuse Total Time Total Time Spent Total Time Spent (In Minutes): 35 Discharge Plan Discharge Items Patient Disposition: Home - Self-Care Reason For Visit: LUNG CANCER,INFECTION,SEEING THINGS Discharge Diagnosis: Hallucination likely medication S/E Activity: Resume your previous activity Non-emergency contact: Primary Care Provider and Oncologist Call non-emergency contact if: you have any medication questions, your symptoms worsen, your pain is concerning for you and you have a fever Follow-up/Referrals: Wood Genao MD [Primary Care Provider] - (Date & Time 02/17/2023 8:00 AM Provider Wood Genao MD Department [facility] ) Diet: Regular Addtl Attending Provider Instructions: Your hallucination could be from your excess pain medications. Decrease your oxycodone dose to 10 mg every 6-8 hours as needed for your pain Take amoxiclav twice daily for 5 days. Follow up with your family doctor and your cancer doctors Pending Studies at Discharge: No Stand-Alone Forms: My [facility] Cardiovascular, Smoking Cessation Medications and DC Order Prescriptions: New amoxicillin-pot clavulanate 875-125 mg tablet 1 tab PO BID Qty: 10 0RF Continued prochlorperazine maleate [Compazine] 10 mg tablet 10 mg PO Q6H PRN (Reason: Nausea) benzonatate 100 mg capsule 100 mg PO TID PRN (Reason: cough) ipratropium-albuterol 0.5 mg-3 mg(2.5 mg base)/3 mL solution for nebulization 3 ml inhalation Q8H Patient Comments: NOT CURRENT USING/ON BACK ORDER albuterol sulfate 90 mcg/actuation HFA aerosol inhaler 2 puff inhalation Q4 PRN (Reason: Wheezing) sucralfate [Carafate] 100 mg/mL suspension 10 ml PO QID Qty: 420 3RF Rx Instructions: Take 1 hour before meals and bedtime. silver sulfadiazine [Silvadene] 1 % cream 1 applic topical BID Qty: 85 1RF Rx Instructions: apply a 1.5 mm thickness tamsulosin 0.4 mg Capsule 0.8 mg PO QAM docusate sodium [Stool Softener] 100 mg Tablet 100 mg PO BID Magic Mouthwash 300 mL mouthwash 10 ml mucous membrane UD PRN (Reason: dysphagia) famotidine [Pepcid] 20 mg Tablet 10 mg PO BID loratadine [Claritin] 10 mg Tablet 10 mg PO QAM montelukast 10 mg Tablet 10 mg PO UD Patient Comments: DAY BEFORE AND MORNING OF CHEMO THERAPY AND I THINK I TAKE ONE THE DAY AFTER CHEMO ferrous sulfate [FeroSul] 325 mg (65 mg iron) tablet 325 mg PO DAILYBB Changed oxycodone 20 mg tablet 10 mg PO .4-6 HR PRN (Reason: Pain) Qty: 10 0RF Discharge Orders: Discharge Order (Routine); Ordered 02/13/23 Ordered By: Bob Guerrero Admission Data Admit Date/Time: 02/12/23 04:12 Attending Provider: Bob Guerrero Admit Provider: Jozef Dodd Primary Care Provider: Wood Genao Other Providers: Jozef Dodd Other Interventions: Discharge Summary Assessment (RN) Last Done: 02/13/23 10:13
== END 2023-02-13 11:05 | disposition home or self-care (01) ==
LOC: EDINP 20:54 → ED 20:54 → SUATTDRO 02-12 04:12 → EDINP 02-12 07:55 → 2W 02-12 16:53

== ENCOUNTER 2023-03-19 11:20 | Inpatient (IN) ==
[2023-03-19] MEDS ORDERED: SODIUM CHLORIDE 0.9% 1000ML 1,000 ML IV SCH (12:00)
[2023-03-19] MEDS ORDERED: PIPERACILLIN/TAZOBACTAM 4.5 GM/120 ML BAG IV ONE (12:09)
[2023-03-19] MEDS ORDERED: VANCOMYCIN CONSULT ACTIVE PRN (12:09)
[2023-03-19] MEDS ORDERED: VANCOMYCIN HCL 1,250 MG in SODIUM CHLORIDE 0.9% 500 ML IV ONE (12:09)
--- NOTE | 2023-03-19 12:20 | Emergency Department Note ---
History of Present Illness General Chief Complaint: Shortness of Breath/Dyspnea Stated Complaint: DR REFERRED, PNEUMONIA, COUGH, SOB Time Seen by Provider: 03/19/23 11:56 History of Present Illness Provider Complaint: shortness of breath and cough Onset (ago): day(s) (4) Severity: moderate Maximum Pain Intensity: 4 Relieved By: + nothing Exacerbated By: + coughing Known history of: other (squamous cell lung cancer on chemo) Associated symptoms: + cough and + sputum production; no hemoptysis Home Medications Medication Instructions Recorded Confirmed Type albuterol sulfate 90 mcg/actuation 2 puff inhalation Q4 PRN Wheezing 10/29/22 03/19/23 History aerosol inhaler ipratropium 0.5 mg-albuterol 3 mg 3 ml inhalation QID PRN Wheezing 10/29/22 03/19/23 History (2.5 mg base)/3 mL nebulization soln tamsulosin 0.4 mg capsule 0.8 mg PO QAM 11/19/22 03/19/23 History docusate sodium 100 mg tablet 100 mg PO BID 12/24/22 03/19/23 History (Stool Softener) loratadine 10 mg tablet (Claritin) 10 mg PO QAM 12/24/22 03/19/23 History gatifloxacin 0.5 % eye drops 0 drp ophthalmic (eye) DAILY 03/19/23 03/19/23 History ibuprofen 200 mg tablet 200 mg PO TID PRN Pain 03/19/23 03/19/23 History ketorolac 0.5 % eye drops 0 drp ophthalmic (eye) DAILY 03/19/23 03/19/23 History prednisolone acetate 1 % eye 0 drp ophthalmic (eye) DAILY 03/19/23 03/19/23 History drops,suspension Allergies Allergy/AdvReac Type Severity Reaction Status Date / Time No Known Allergies Allergy Verified 03/11/23 16:08 Past Med/Surg History Medical History DM type 2 (diabetes mellitus, type 2) pt denies Ex-smoker Frequent urination ONGOING ISSUE Hepatitis C Active History of chest pain RECENT DX LUNG CA...TESTING...C/P SUSPECTED TO BE DUE TO TUMOR LOCATION AT LUNG ENTRY - WANTED TO PLACE A STENT/UNABLE TO STENT History of fracture of orbit HX RIGHT ORBITAL FX...SX/TITANIUM IMPLANT History of fractured vertebra History of influenza OCT 2022 History of recent hospitalization 02/2023 [facility] - MRSA bacteremia secondary to port infection, bilateral lobe pneumonia, MRSA cellulitis/radiation dermatitis of the left upper chest. History of vascular access device removed Lung cancer Dx'd 10/14/2022. CHEMO AND RADIATION (completed approx 1 mo ago per pt). [facility] for infusions q2wk. unable to recall name of infusion. Osteoporosis Ruptured intervertebral disc hx Surgical History H/O eye surgery 1996 H/O knee surgery 1999 History of bronchoscopy History of tonsillectomy and adenoidectomy 1972 Family History Brother Stomach cancer Grandfather (Maternal) Prostate cancer Grandfather (Paternal) Colon cancer Father Heart disease Grandfather Stroke Social History Smoking Status: Former smoker Tobacco Type: Cigarettes packs per day: 1.5; Second Hand Exposure: No; Do You Dip or Chew Tobacco: No; Hx Alcohol Use: No Hx Substance Use: No Preferred Language: Persian Communication Ability: Effective Visual Impairment: No Limitations Hearing Ability: Normal Welfare Investigator Required: No Beliefs That Will Affect Care: None Current Living Situation: Significant Other 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 current occupational status: disabled Feels Safe at Home: Yes Diet: diabetic during the past year weight has: decreased > 10 lbs Assistive Devices: Glasses Physical Exam Vital Signs: Vital Signs - 24 hr 03/19/23 11:28 03/19/23 11:45 03/19/23 11:58 Temperature 36.4 C L Temperature Source Temporal Artery Sc an Pulse Rate 118 H 110 H Pulse Rate [Apical ] 109 H Pulse Rhythm Respiratory Rate 20 20 Respiratory Effort / Characteristics Non-Labored Sponta neous Non-Labored Respiratory Depth Normal Normal Respiratory Patter n Regular Blood Pressure 99/63 L Blood Pressure [Ri ght Arm] 111/73 Blood Pressure Sunitha n 75 Blood Pressure Sunitha n [Right Arm] 85 Blood Pressure Pos ition Sitting Blood Pressure Pos ition [Right Arm] Sitting Pulse Oximetry 98 91 Oxygen Delivery Me thod Room Air Room Air Sepsis Recent Feve r Within 48 Hours No Sepsis New/Unexpla ined Change in Men vanessa Status N/A Sepsis Action Take n by Nursing No Action Required 03/19/23 11:58 03/19/23 11:58 03/19/23 12:11 Temperature Temperature Source Pulse Rate Pulse Rate [Apical ] 110 H Pulse Rhythm Respiratory Rate 20 Respiratory Effort / Characteristics Non-Labored Respiratory Depth Normal Respiratory Patter n Blood Pressure Blood Pressure [Ri ght Arm] 110/67 Blood Pressure Sunitha n Blood Pressure Sunitha n [Right Arm] 81 Blood Pressure Pos ition Blood Pressure Pos ition [Right Arm] Pulse Oximetry 90 90 99 Oxygen Delivery Me thod Room Air Room Air Room Air Sepsis Recent Feve r Within 48 Hours Sepsis New/Unexpla ined Change in Men vanessa Status Sepsis Action Take n by Nursing 03/19/23 12:52 03/19/23 13:14 03/19/23 14:41 Temperature Temperature Source Pulse Rate Pulse Rate [Apical ] 109 H 107 H 108 H Pulse Rhythm Respiratory Rate 20 20 28 H Respiratory Effort / Characteristics Non-Labored Non-Labored Non-Labored Respiratory Depth Normal Normal Normal Respiratory Patter n Blood Pressure Blood Pressure [Ri ght Arm] 110/67 95/62 L Blood Pressure Sunitha n Blood Pressure Sunitha n [Right Arm] 81 73 Blood Pressure Pos ition Blood Pressure Pos ition [Right Arm] Pulse Oximetry 90 98 99 Oxygen Delivery Me thod Room Air Room Air Room Air Sepsis Recent Feve r Within 48 Hours Sepsis New/Unexpla ined Change in Men vanessa Status Sepsis Action Take n by Nursing 03/19/23 14:41 03/19/23 14:52 03/19/23 15:53 Temperature Temperature Source Pulse Rate 105 H 104 H Pulse Rate [Apical ] 108 H Pulse Rhythm Regular Respiratory Rate 28 H 30 H 28 H Respiratory Effort / Characteristics Non-Labored Respiratory Depth Normal Respiratory Patter n Blood Pressure 97/57 L Blood Pressure [Ri ght Arm] 97/57 L Blood Pressure Sunitha n Blood Pressure Sunitha n [Right Arm] 70 Blood Pressure Pos ition Blood Pressure Pos ition [Right Arm] Pulse Oximetry 99 100 98 Oxygen Delivery Me thod Room Air Room Air Room Air Sepsis Recent Feve r Within 48 Hours Sepsis New/Unexpla ined Change in Men vanessa Status Sepsis Action Take n by Nursing Physical Exam: Physical Exam GENERAL: oriented to person, place, and time. HENT: Exam performed. - Head: Normocephalic and atraumatic. EYES: Conjunctivae and EOM are normal. Right eye exhibits no discharge. Left eye exhibits no discharge. No scleral icterus. NECK: Normal range of motion. Neck supple. No JVD present. CV: Tachycardic rate, regular rhythm, normal heart sounds and intact distal pulses. There is no peripheral edema. Palpable radial pulses bue. PULM/CHEST: Rhonchi and rales in the left side. ABD: The abdomen is soft. There is no tenderness. NEURO: Motor and sensation grossly intact. SKIN: Skin is warm and dry. He is not diaphoretic. PSYCH: normal mood and affect. Behavior is normal. Judgment and thought content normal. Course Course 1156: The patient was evaluated in room A10. A complete history and physical exam was performed Cardiac monitoring: An order was placed for continuous cardiac monitoring. The monitor shows a rate of 110 with sinus rhythm interpreted by me Chest x-ray done today at the oncology office when compared to the chest x-ray showed a progression of the left upper hilar perihilar space opacity with several air-fluid levels which could represent a cavitary pneumonia cavitary neoplasm or posttreatment change. Patient had blood work done today which showed a leukocytosis of 30. There are no QuantiFERON studies or TB sputum cultures that I see ordered in the EMR. X-ray reviewed by me does show a left sided cavitary lesion. Patient was placed on airborne precautions and QuantiFERON gold will be ordered for the patient as there is clinical concern for tuberculosis given the armand ent's cavitary lesion and being immunocompromised secondary to chemotherapy. Luisa pharmacist was able to call [facility] ID consult which we will await their input also. 1310: Discussed with [facility] ID Dr. Perez. Further review of the external medical records of the patient's chart shows that the patient had a CT scan done in October 2022 which also showed a large infiltrative left perihilar mass lesion measuring approximately 6 cm. The patient had a bronchoscopy done by Dr. Layton which confirmed the diagnosis of squamous cell lung cancer and on October 15 there was a acid-fast bacilli smear and culture from the bronchoscopy which were negative. Dr. Perze asked if the patient had any strong risk factors for tuberculosis such as recent travel, incarceration, or exposure to anyone who is incarcerated and the patient denies. Dr. Perez states that it is unlikely that the patient has TB given that the AFB smear from the bronchoscopy in October was negative however to truly rule out TB she recommends an acid-fast bacilli culture and smear every 8 hours for next 24 hours. She also recommends a sputum culture and agrees to give vancomycin and Zosyn which have been ordered. Patient will be moved to negative pressure room to obtain sputum samples and for the duration of his emergency department stay respiratory airborne isolation's and precautions are maintained. 1350: Vital signs stable. Labs show a leukocytosis of 28.2. ABG within normal limits. Calcitonin 1.07. Patient will be admitted to the [facility] team. Administered Medications Miscellaneous Information (Vancomycin Consult Active) 1 each N/A UD PRN PRN Reason: Consult Stop: 04/18/23 12:08 Last Admin: 03/19/23 12:51 Dose: 1 each Documented By: HOLLY Discontinued Medications Sodium Chloride (Nss 1000ml) 1,000 mls @ 999 mls/hr IV .[id number] VARUN Stop: 03/19/23 13:00 Last Infusion: 03/19/23 13:07 Dose: 0 mls/hr Documented By: Admin: 03/19/23 12:06 Dose: 999 mls/hr Documented By: HOLLY Piperacillin Sod/Tazobactam Sod (Zosyn) 4.5 gm in 120 mls @ 240 mls/hr IV NOW ONE Stop: 03/19/23 12:38 Last Infusion: 03/19/23 13:18 Dose: 0 mls/hr Documented By: Admin: 03/19/23 12:51 Dose: 240 mls/hr Documented By: HOLLY Vancomycin HCl 1,250 mg/ (Sodium Chloride) 525 mls @ 200 mls/hr IV NOW ONE Stop: 03/19/23 14:46 Last Admin: 03/19/23 12:51 Dose: 200 mls/hr Documented By: HOLLY Medical Decision Making Medical Records Attestation: I reviewed the patient's medical records. External medical records reviewed. Patient has a history of squamous cell lung cancer. Patient had a CTA of the chest done on February 12, 2023 which showed a left perihilar suprahilar mass lesion that was unchanged encasing several left hilar structures. Chest x-ray done today at the oncology office when compared to the chest x-ray showed a progression of the left upper hilar perihilar space opacity with several air-fluid levels which could represent a cavitary pneumonia cavitary neoplasm or posttreatment change. Patient had blood work done today which showed a leukocytosis of 30. There are no QuantiFERON studies or TB sputum cultures that I see ordered in the EMR. X-ray reviewed by me does show a left sided cavitary lesion. Laboratory Data Attestation: I reviewed the patient's lab results. 03/19/23 11:55 03/19/23 11:55 Lab Results 03/19/23 03/19/23 03/19/23 Range/Units 11:55 11:55 11:55 WBC 28.20 H (4.8-10.8) K/ul RBC 2.84 L (4.70-6.10) M/uL Hgb 7.4 L (14.0-18.0) g/dl POC Hgb (14.0-18.0) g/dl Hct 24.0 L (42.0-52.0) % POC Hct (42-52) % MCV 84.5 (80.0-100.0) fL MCH 26.1 (25.0-34.0) pg MCHC 30.8 L (32.0-36.0) g/dL RDW Std Deviation 56.7 H (36.4-46.3) fL RDW Coeff of Mathieu 18.3 H (11.5-14.5) % Plt Count 365 (130-400) K/uL MPV 10.2 (9.4-12.4) fL Immature Gran % (Auto) 1.5 % Neut % (Auto) 91.9 % Lymph % (Auto) 2.0 % Burt % (Auto) 4.3 % Eos % (Auto) 0.1 % Baso % (Auto) 0.2 % Neut # (Auto) 25.90 H (1.40-6.50) K/uL Lymph # (Auto) 0.57 L (1.2-3.4) K/uL Burt # (Auto) 1.22 H (0.11-0.59) K/uL Eos # (Auto) 0.02 (0-0.50) K/uL Baso # (Auto) 0.07 (0-0.2) K/uL Immature Gran # (Auto) 0.42 H (0.01-0.20) K/uL Hypochromasia Present PT (9.0-12.0) Seconds INR (0.9-1.1) APTT (21.0-31.0) Seconds PTT Ratio ABG pH (7.35-7.45) ABG pCO2 (35-46) mmHg ABG pO2 (80-95) mmHg ABG HCO3 (19-24) mmol/L ABG O2 Saturation (90-95) % ABG Base Excess (-9-1.8) mEq/L Keon Test (Pos) Oxygen Given POC Sodium (135-144) mmol/L Sodium 130 L (136-145) mmol/L POC Potassium (3.3-5.0) mmol/L Potassium 3.4 L (3.5-5.1) mmol/L POC Chloride (101-112) mmol/L Chloride 98 (98-107) mmol/L Carbon Dioxide 24 (21-32) mmol/L POC Total CO2 (24-31) mmol/L Anion Gap 8 (3-11) POC Anion Gap (16-25) mmol/L POC BUN (7-18) mg/dl BUN 24 H (6-23) mg/dl Creatinine 0.59 L (0.6-1.4) mg/dl POC Creatinine (0.6-1.3) mg/dl Est Cr Clr Drug Dosing 103.9 ml/min Est GFR ( Amer) 125.8 ml/min Est GFR (Non-Af Amer) 108.5 ml/min BUN/Creatinine Ratio 40.7 H (10-20) Glucose 109 H (70-99(Fasting)) mg/dl POC Glucose (other) (70-99) mg/dl Lactate (0.4-2.0) mmol/L Calcium 8.3 L (8.6-10.3) mg/dl POC Ioniz Calcium Antonio (1.12-1.32) mmol/l Magnesium 1.8 (1.7-2.4) mg/dl Total Bilirubin 0.5 (0.2-1.0) mg/dl Direct Bilirubin 0.2 (0-0.2) mg/dl AST 58 H (13-39) U/L ALT 57 H (7-52) U/L Alkaline Phosphatase 109 H (34-104) U/L Troponin I High Sens 19.3 (0-20) pg/ml Total Protein 6.0 (6.0-8.3) gm/dl Albumin 2.7 L (3.4-5.0) gm/dl Procalcitonin 1.07 H (0-0.5) ng/ml Adenovirus (PCR) (NotDetected) B. pertussis DNA (PCR) (NotDetected) B.parapertussis DNA PCR (NotDetected) C. pneumoniae DNA (PCR) (NotDetected) Coronavirus OC43 (PCR) (NotDetected) Coronavirus HKU1 (PCR) (NotDetected) Coronavirus 229E (PCR) (NotDetected) SARS-CoV-2 (PCR) (NotDetected) Coronavirus NL63 (PCR) (NotDetected) Human Metapneumovir PCR (NotDetected) Influenza Type A (PCR) (NotDetected) Influenza Type B (PCR) (NotDetected) M. pneumoniae (PCR) (NotDetected) Parainfluenza 1 (PCR) (NotDetected) Parainfluenza 2 (PCR) (NotDetected) Parainfluenza 3 (PCR) (NotDetected) Parainfluenza 4 (PCR) (NotDetected) RSV (PCR) (NotDetected) Entero/Rhino (PCR) (NotDetected) Blood Type Antibody Screen 03/19/23 03/19/23 03/19/23 Range/Units 11:55 12:08 12:37 WBC (4.8-10.8) K/ul RBC (4.70-6.10) M/uL Hgb (14.0-18.0) g/dl POC Hgb (14.0-18.0) g/dl Hct (42.0-52.0) % POC Hct (42-52) % MCV (80.0-100.0) fL MCH (25.0-34.0) pg MCHC (32.0-36.0) g/dL RDW Std Deviation (36.4-46.3) fL RDW Coeff of Mathieu (11.5-14.5) % Plt Count (130-400) K/uL MPV (9.4-12.4) fL Immature Gran % (Auto) % Neut % (Auto) % Lymph % (Auto) % Burt % (Auto) % Eos % (Auto) % Baso % (Auto) % Neut # (Auto) (1.40-6.50) K/uL Lymph # (Auto) (1.2-3.4) K/uL Burt # (Auto) (0.11-0.59) K/uL Eos # (Auto) (0-0.50) K/uL Baso # (Auto) (0-0.2) K/uL Immature Gran # (Auto) (0.01-0.20) K/uL Hypochromasia PT 12.0 (9.0-12.0) Seconds INR 1.1 (0.9-1.1) APTT 26.6 (21.0-31.0) Seconds PTT Ratio 0.9 ABG pH (7.35-7.45) ABG pCO2 (35-46) mmHg ABG pO2 (80-95) mmHg ABG HCO3 (19-24) mmol/L ABG O2 Saturation (90-95) % ABG Base Excess (-9-1.8) mEq/L Keon Test (Pos) Oxygen Given POC Sodium (135-144) mmol/L Sodium (136-145) mmol/L POC Potassium (3.3-5.0) mmol/L Potassium (3.5-5.1) mmol/L POC Chloride (101-112) mmol/L Chloride (98-107) mmol/L Carbon Dioxide (21-32) mmol/L POC Total CO2 (24-31) mmol/L Anion Gap (3-11) POC Anion Gap (16-25) mmol/L POC BUN (7-18) mg/dl BUN (6-23) mg/dl Creatinine (0.6-1.4) mg/dl POC Creatinine (0.6-1.3) mg/dl Est Cr Clr Drug Dosing ml/min Est GFR ( Amer) ml/min Est GFR (Non-Af Amer) ml/min BUN/Creatinine Ratio (10-20) Glucose (70-99(Fasting)) mg/dl POC Glucose (other) (70-99) mg/dl Lactate (0.4-2.0) mmol/L Calcium (8.6-10.3) mg/dl POC Ioniz Calcium Antonio (1.12-1.32) mmol/l Magnesium (1.7-2.4) mg/dl Total Bilirubin (0.2-1.0) mg/dl Direct Bilirubin (0-0.2) mg/dl AST (13-39) U/L ALT (7-52) U/L Alkaline Phosphatase (34-104) U/L Troponin I High Sens (0-20) pg/ml Total Protein (6.0-8.3) gm/dl Albumin (3.4-5.0) gm/dl Procalcitonin (0-0.5) ng/ml Adenovirus (PCR) Not Detected (NotDetected) B. pertussis DNA (PCR) Not Detected (NotDetected) B.parapertussis DNA PCR Not Detected (NotDetected) C. pneumoniae DNA (PCR) Not Detected (NotDetected) Coronavirus OC43 (PCR) Not Detected (NotDetected) Coronavirus HKU1 (PCR) Not Detected (NotDetected) Coronavirus 229E (PCR) Not Detected (NotDetected) SARS-CoV-2 (PCR) Not Detected (NotDetected) Coronavirus NL63 (PCR) Not Detected (NotDetected) Human Metapneumovir PCR Not Detected (NotDetected) Influenza Type A (PCR) Not Detected (NotDetected) Influenza Type B (PCR) Not Detected (NotDetected) M. pneumoniae (PCR) Not Detected (NotDetected) Parainfluenza 1 (PCR) Not Detected (NotDetected) Parainfluenza 2 (PCR) Not Detected (NotDetected) Parainfluenza 3 (PCR) Not Detected (NotDetected) Parainfluenza 4 (PCR) Not Detected (NotDetected) RSV (PCR) Not Detected (NotDetected) Entero/Rhino (PCR) Not Detected (NotDetected) Blood Type O Negative Antibody Screen NEGATIVE 03/19/23 03/19/23 03/19/23 Range/Units 12:53 12:54 13:53 WBC (4.8-10.8) K/ul RBC (4.70-6.10) M/uL Hgb (14.0-18.0) g/dl POC Hgb 6.1 L* (14.0-18.0) g/dl Hct (42.0-52.0) % POC Hct 18 L* (42-52) % MCV (80.0-100.0) fL MCH (25.0-34.0) pg MCHC (32.0-36.0) g/dL RDW Std Deviation (36.4-46.3) fL RDW Coeff of Mathieu (11.5-14.5) % Plt Count (130-400) K/uL MPV (9.4-12.4) fL Immature Gran % (Auto) % Neut % (Auto) % Lymph % (Auto) % Burt % (Auto) % Eos % (Auto) % Baso % (Auto) % Neut # (Auto) (1.40-6.50) K/uL Lymph # (Auto) (1.2-3.4) K/uL Burt # (Auto) (0.11-0.59) K/uL Eos # (Auto) (0-0.50) K/uL Baso # (Auto) (0-0.2) K/uL Immature Gran # (Auto) (0.01-0.20) K/uL Hypochromasia PT (9.0-12.0) Seconds INR (0.9-1.1) APTT (21.0-31.0) Seconds PTT Ratio ABG pH 7.49 H (7.35-7.45) ABG pCO2 27 L (35-46) mmHg ABG pO2 91 (80-95) mmHg ABG HCO3 21 (19-24) mmol/L ABG O2 Saturation 99.3 H (90-95) % ABG Base Excess -1.4 (-9-1.8) mEq/L Keon Test Pos (Pos) Oxygen Given ROOM AIR POC Sodium 132 L (135-144) mmol/L Sodium (136-145) mmol/L POC Potassium 3.0 L (3.3-5.0) mmol/L Potassium (3.5-5.1) mmol/L POC Chloride 100 L (101-112) mmol/L Chloride (98-107) mmol/L Carbon Dioxide (21-32) mmol/L POC Total CO2 20 L (24-31) mmol/L Anion Gap (3-11) POC Anion Gap 17.0 (16-25) mmol/L POC BUN 19 H (7-18) mg/dl BUN (6-23) mg/dl Creatinine (0.6-1.4) mg/dl POC Creatinine 0.5 L (0.6-1.3) mg/dl Est Cr Clr Drug Dosing ml/min Est GFR ( Amer) ml/min Est GFR (Non-Af Amer) ml/min BUN/Creatinine Ratio (10-20) Glucose (70-99(Fasting)) mg/dl POC Glucose (other) 108 H (70-99) mg/dl Lactate 1.4 (0.4-2.0) mmol/L Calcium (8.6-10.3) mg/dl POC Ioniz Calcium Antonio 1.05 L (1.12-1.32) mmol/l Magnesium (1.7-2.4) mg/dl Total Bilirubin (0.2-1.0) mg/dl Direct Bilirubin (0-0.2) mg/dl AST (13-39) U/L ALT (7-52) U/L Alkaline Phosphatase (34-104) U/L Troponin I High Sens (0-20) pg/ml Total Protein (6.0-8.3) gm/dl Albumin (3.4-5.0) gm/dl Procalcitonin (0-0.5) ng/ml Adenovirus (PCR) (NotDetected) B. pertussis DNA (PCR) (NotDetected) B.parapertussis DNA PCR (NotDetected) C. pneumoniae DNA (PCR) (NotDetected) Coronavirus OC43 (PCR) (NotDetected) Coronavirus HKU1 (PCR) (NotDetected) Coronavirus 229E (PCR) (NotDetected) SARS-CoV-2 (PCR) (NotDetected) Coronavirus NL63 (PCR) (NotDetected) Human Metapneumovir PCR (NotDetected) Influenza Type A (PCR) (NotDetected) Influenza Type B (PCR) (NotDetected) M. pneumoniae (PCR) (NotDetected) Parainfluenza 1 (PCR) (NotDetected) Parainfluenza 2 (PCR) (NotDetected) Parainfluenza 3 (PCR) (NotDetected) Parainfluenza 4 (PCR) (NotDetected) RSV (PCR) (NotDetected) Entero/Rhino (PCR) (NotDetected) Blood Type Antibody Screen ECG Data Attestation: I personally reviewed and interpreted this ECG as follows: Interpretation: Sinus tachycardia with a rate of 113. NE QRS and QTc intervals within normal limits. No ST elevation or ST depression. [facility] Narrative 1156: The patient was evaluated in room A10. A complete history and physical exam was performed Cardiac monitoring: An order was placed for continuous cardiac monitoring. The monitor shows a rate of 110 with sinus rhythm interpreted by me Chest x-ray done today at the oncology office when compared to the chest x-ray showed a progression of the left upper hilar perihilar space opacity with several air-fluid levels which could represent a cavitary pneumonia cavitary neoplasm or posttreatment change. Patient had blood work done today which showed a leukocytosis of 30. There are no QuantiFERON studies or TB sputum cultures that I see ordered in the EMR. X-ray reviewed by me does show a left sided cavitary lesion. Patient was placed on airborne precautions and QuantiFERON gold will be ordered for the patient as there is clinical concern for tuberculosis given the patient's cavitary lesion and being immunocompromised secondary to chemotherapy. Luisa pharmacist was able to call [facility] ID consult which we will await their input also. 1310: Discussed with [facility] ID Dr. Perez. Further review of the external medical records of the patient's chart shows that the patient had a CT scan done in October 2022 which also showed a large infiltrative left perihilar mass lesion measuring approximately 6 cm. The patient had a bronchoscopy done by Dr. Layton which confirmed the diagnosis of squamous cell lung cancer and on October 15 there was a acid-fast bacilli smear and culture from the bronchoscopy which were negative. Dr. Perez asked if the patient had any strong risk factors for tuberculosis such as recent travel, incarceration, or exposure to anyone who is incarcerated and the patient denies. Dr. Perez states that it is unlikely that the patient has TB given that the AFB smear from the bronchoscopy in October was negative however to truly rule out TB she recommends an acid-fast bacilli culture and smear every 8 hours for next 24 hours. She also recommends a sputum culture and agrees to give vancomycin and Zosyn which have been ordered. Patient will be moved to negative pressure room to obtain sputum samples and for the duration of his emergency department stay respiratory airborne isolation's and precautions are maintained. 1350: Vital signs stable. Labs show a leukocytosis of 28.2. ABG within normal limits. Calcitonin 1.07. Patient will be admitted to the [facility] team. Impression & Plan Pneumonia Discharge Plan Visit Data Chief Complaint: Shortness of Breath/Dyspnea Stated Complaint: DR REFERRED, PNEUMONIA, COUGH, SOB ED Provider: Reinier Lott Discharge Problem: Pneumonia Patient Disposition: Admitted As Inpatient Discharge Instructions Interventions: ED Discharge Assessment Last Done: 03/19/23 15:53 Forms Stand Alone Forms: [facility] [place] WebEvents Prescriptions Prescriptions: No Action ipratropium-albuterol 0.5 mg-3 mg(2.5 mg base)/3 mL solution for nebulization 3 ml inhalation QID PRN (Reason: Wheezing) Patient Comments: NOT CURRENT USING/ON BACK ORDER albuterol sulfate 90 mcg/actuation HFA aerosol inhaler 2 puff inhalation Q4 PRN (Reason: Wheezing) tamsulosin 0.4 mg Capsule 0.8 mg PO QAM docusate sodium [Stool Softener] 100 mg Tablet 100 mg PO BID loratadine [Claritin] 10 mg Tablet 10 mg PO QAM ketorolac 0.5 % drops 0 drp ophthalmic (eye) DAILY Rx Instructions: *Not started yet prednisolone acetate 1 % drops,suspension 0 drp ophthalmic (eye) DAILY Rx Instructions: *Not started yet ibuprofen 200 mg Tablet 200 mg PO TID PRN (Reason: Pain) gatifloxacin 0.5 % drops 0 drp ophthalmic (eye) DAILY Rx Instructions: *Not started yet Referrals Referrals: Wood Genao MD [Primary Care Provider] -
[2023-03-19 12:35] LABS: Hemoglobin 7.4 g/dl (14.0-18.0); Mean Corpuscular Hemoglobin 26.1 pg (25.0-34.0); Mean Corpuscular Hgb Conc 30.8 g/dL (32.0-36.0); Mean Corpuscular Volume 84.5 fL (80.0-100.0); Mean Platelet Volume 10.2 fL (9.4-12.4); Platelet Count 365 K/uL (130-400); RDW Coefficient of Variation 18.3 % (11.5-14.5); RDW Standard Deviation 56.7 fL (36.4-46.3); Red Blood Count 2.84 M/uL (4.70-6.10)
[2023-03-19 12:48] LABS: INR 1.1 (0.9-1.1); Partial Thromboplastin Ratio 0.9; Partial Thromboplastin Time 26.6 Seconds (21.0-31.0)
[2023-03-19 13:10] LABS: Basophils # (auto) 0.07 K/uL (0-0.2); Basophils % (auto) 0.2 %; Eosinophils # (auto) 0.02 K/uL (0-0.50); Eosinophils % (auto) 0.1 %; Hypochromasia Present; Immature Granulocytes # (auto) 0.42 K/uL (0.01-0.20); Immature Granulocytes % (auto) 1.5 %; Lymphocytes # (auto) 0.57 K/uL (1.2-3.4); Monocytes # (auto) 1.22 K/uL (0.11-0.59); Monocytes % (auto) 4.3 %; Neutrophils % (auto) 91.9 %
[2023-03-19 13:13] LABS: Base Excess ABG -1.4 mEq/L (-9-1.8); HCO3 ABG 21 mmol/L (19-24); Oxygen Saturation ABG 99.3 % (90-95); PCO2 ABG 27 mmHg (35-46); PO2 ABG 91 mmHg (80-95); pH ABG 7.49 (7.35-7.45)
[2023-03-19 13:16] LABS: Allen Test Pos (Pos)
[2023-03-19 13:27] LABS: Adenovirus PCR Not Detected (NotDetected); Bordetella parapertussis PCR Not Detected (NotDetected); Bordetella pertussis PCR Not Detected (NotDetected); Chlamydia pneumoniae PCR Not Detected (NotDetected); Coronavirus 229E PCR Not Detected (NotDetected); Coronavirus CoV-2 (COVID19)PCR Not Detected (NotDetected); Coronavirus HKU1 PCR Not Detected (NotDetected); Coronavirus NL63 PCR Not Detected (NotDetected); Coronavirus OC43PCR Not Detected (NotDetected); Human Metapneumovirus PCR Not Detected (NotDetected); Influenza A PCR Not Detected (NotDetected); Influenza B PCR Not Detected (NotDetected); Mycoplasma pneumoniae PCR Not Detected (NotDetected); Parainfluenza Virus 1 PCR Not Detected (NotDetected); Parainfluenza Virus 2 PCR Not Detected (NotDetected); Parainfluenza Virus 3 PCR Not Detected (NotDetected); Parainfluenza Virus 4 PCR Not Detected (NotDetected); Respiratory Syncytial VirusPCR Not Detected (NotDetected); Rhinovirus/Enterovirus PCR Not Detected (NotDetected)
[2023-03-19 13:32] LABS: Troponin I High Sensitivity 19.3 pg/ml (0-20)
[2023-03-19 13:44] LABS: Albumin Level 2.7 gm/dl (3.4-5.0); Bilirubin Direct 0.2 mg/dl (0-0.2); Bilirubin,Total 0.5 mg/dl (0.2-1.0); Calcium 8.3 mg/dl (8.6-10.3); Magnesium 1.8 mg/dl (1.7-2.4); Potassium 3.4 mmol/L (3.5-5.1)
[2023-03-19 13:50] LABS: BUN Creatinine Ratio 40.7 (10-20); Creatinine Clr Calc Pharmacy 103.9 ml/min; Est GFR (African American) 125.8 ml/min; Est GFR (Non-African American) 108.5 ml/min
[2023-03-19] MEDS ORDERED: POLYETHYLENE (MIRALAX) 17 GM PACK PO PRN (14:06)
[2023-03-19] MEDS ORDERED: ALUMINUM/MAGNESIUM SUSP 30 ML UDC PO PRN (14:06)
[2023-03-19] MEDS ORDERED: MAGNESIUM HYDROXIDE SUSP 30 ML UDC PO PRN (14:06)
[2023-03-19 14:08] LABS: iSTAT Creatinine 0.5 mg/dl (0.6-1.3); iSTAT Hemoglobin 6.1 g/dl (14.0-18.0); iSTAT Ionized Calcium 1.05 mmol/l (1.12-1.32)
--- NOTE | 2023-03-19 14:10 | History & Physical Report ---
Date of Service March 19, 2023 Assessment & Plan (1) Squamous cell carcinoma of left lung: (2) Weight loss: (3) Leukocytosis: (4) Weakness: (5) BPH (benign prostatic hyperplasia): Plan 62 year old with SCC left lung; follows Dr. Pierson. Presents by recommendation of Dr. Aleman for worsening leukocytosis. Dx SCC left lung 10/[address] Layton. Imaging today suggestive of cavitary lesions. AF culture Q8 x24 hours. Vanco + Zosyn per ID. Pulm consult, possible could benefit from bronch wash out. Recent admit with sepsis related to bilateral lobe pneumonia, MRSA cellulitis and radiation dermatitis of left upper chest. Hgb 7.4--> 6.1; recc 1 UPRBC. Hypok+ 3.0, Stool studies, blood cultures, and urine pending. Sepsis: Squamous cell carcinoma of left lung: Leukocytosis: Weight loss: Weakness: Diagnosed in Oct 2022. Follows with Dr. Pierson Bronch done October B12 normal Ferritin 556 as OPT Folic Acid 1 mg PO BID per recc by Dr. Lee AFB culture Q8 x 24 hours QF Gold ordered Airborne Isolation ordered Chest CT ordered Cavitary lesions noted on imaging; left sided Per ID; Vanco + Zosyn started; adjust pending Stool, blood cultures, and urine cultures Lactate 1.4 PT/OT Nutrition consult placed Pulmonary consult placed Symptomatic Anemia: Hgb 7.4--> 6.1 post 1LNSB Discussion with Dr. Lee; goal Hgb > 7.0; suggested 1 UPRBC; ordered Recheck CBC for 2200 T/C done and consent obtained in ED FOBT Diarrhea: Occuring x 48 hours Will obtain stool studies including C-Diff Likely side effect of his chemo tx Hypokalemia: K+ 3.0; replace with 40 mEq PO K+ rider x2 Recheck BMP in AM BPH: Takes tamsulosin; continue Disposition: PCP: Dr. Genao CODE STATUS: Full code VTE prophylaxis: Teds and SCDs for now + Heparin SQ I spent a total of 87 minutes coordinating, documenting, and providing care for this patient excluding time spent in the performance of separately billed services. All of the aforementioned completed while collaborating with the assigned attending physician for a full treatment plan. Please see their addendum for further details. History of Present Illness Chief Complaint: increased cough/leukocytosis Primary Care Provider: Wood Genao MD Mr. Bah is a 62 year old male that presented to the [facility] today after being referred by his Oncologist, Dr. Pierson for worsening leukocy tosis. WBC 28k. Patient had blood work done today which showed leukocytosis of nearly 30. Chest x-ray reveals left-sided cavitary lesion. ED discussed with [facility] ID Dr. Santos. Patient had a chest CT done 10/2022 showing perihilar mass lesion measuring approximately 6 cm. At that time patient had a bronchoscopy done by Dr. Layton confirming his cancer diagnosis. AFB and culture were obtained during the [facility] which were negative. Per discussion with the ED infectious disease recommends an AFB culture and smear every 8 x24 hours and recommends initiation of vancomycin plus Zosyn. Patient reports nearly 20 pound weight loss since October 2022 at the time of his diagnosis. Pt does report worsening weakness and shortness of breath including orthopnea. Pt reports having diarrhea over the past 48 hours. Reports more increase in malodor but does not suggest any mucus in stool. After speaking with Dr. Pierson he states that there are increased GI effects related to his chemotherapy treatment. Pt currently being treated for squamous cell carcinoma under the care of Dr. Pierson diagnosed October 2022. I spoke with Dr. Pierson on the phone and confirmed that his last chemotherapy was Taxol in January 2023 with a tislelizumab and immune checkpoint treatment most recently. B12 level in January was normal ferritin 556 in January. Suspect that he is in the acute phase reaction period of time. Dr. Lee goal hemoglobin greater than 7.0 we will transfuse 1 unit PRBC. Do not have suspicion of his lung cancer progressing rather GI effects relating to the immuno checkpoint causing leukocytosis. Patient did have a month long hospitalization in January for MRSA bacteremia secondary to port infection, bilateral lobe pneumonia, MRSA cellulitis and radiation dermatitis of left upper chest. Port was removed by surgery at that time and replaced by a PICC line and he completed a long course of IV vancomycin. 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 Patient denies recent travel, incarceration, or exposure to anyone with TB. WBC 28.20 with neutrophil 25.90. Pt slightly hyponatremic 132, hypokalemic 3.0. Mag 1.8. Respiratory alkalosis on ABG pH 7.49, CO2 27, bicarb 21. Patient will be moved to negative pressure room to obtain sputum samples and for the duration of his emergency department stay respiratory airborne isolation's and precautions are maintained. Patient denies headache, dizziness, chest pain, palpitations, abdominal pain, nausea, vomiting, recent falls or trauma. Pt is sitting in his hospital bed in no apparent distress, but does have course lung sounds and SOB with activity and exertion. Patient lung sounds coarse. Euvolemic on exam and stable hemodynamically; however after the patient was transferred to the floor he became tachycardic and tachypneic requiring increased O2 use. Patient to be given 1 unit PRBC on the floor. Nutritional studies were done as an outpatient. Patient will be admitted for further evaluation and management. Please see A/P for further details. Allergies Allergy/AdvReac Type Severity Reaction Status Date / Time No Known Allergies Allergy Verified 03/11/23 16:08 Home Medications Medication Instructions Recorded Confirmed Type albuterol sulfate 90 mcg/actuation 2 puff inhalation Q4 PRN Wheezing 10/29/22 03/19/23 History aerosol inhaler ipratropium 0.5 mg-albuterol 3 mg 3 ml inhalation QID PRN Wheezing 10/29/22 03/19/23 History (2.5 mg base)/3 mL nebulization soln tamsulosin 0.4 mg capsule 0.8 mg PO QAM 11/19/22 03/19/23 History docusate sodium 100 mg tablet 100 mg PO BID 12/24/22 03/19/23 History (Stool Softener) loratadine 10 mg tablet (Claritin) 10 mg PO QAM 12/24/22 03/19/23 History gatifloxacin 0.5 % eye drops 0 drp ophthalmic (eye) DAILY 03/19/23 03/19/23 History ibuprofen 200 mg tablet 200 mg PO TID PRN Pain 03/19/23 03/19/23 History ketorolac 0.5 % eye drops 0 drp ophthalmic (eye) DAILY 03/19/23 03/19/23 History prednisolone acetate 1 % eye 0 drp ophthalmic (eye) DAILY 03/19/23 03/19/23 History drops,suspension Past Med/Surg History Medical History (Updated 03/19/23 @ 18:23 by IHSAN Salgado) BPH (benign prostatic hyperplasia) DM type 2 (diabetes mellitus, type 2) pt denies Ex-smoker Frequent urination ONGOING ISSUE Hepatitis C Active History of chest pain RECENT DX LUNG CA...TESTING...C/P SUSPECTED TO BE DUE TO TUMOR LOCATION AT LUNG ENTRY - WANTED TO PLACE A STENT/UNABLE TO STENT History of fracture of orbit HX RIGHT ORBITAL FX...SX/TITANIUM IMPLANT History of fractured vertebra History of influenza OCT 2022 History of recent hospitalization 02/2023 [facility] - MRSA bacteremia secondary to port infection, bilateral lobe pneumonia, MRSA cellulitis/radiation dermatitis of the left upper chest. History of vascular access device removed Lung cancer Dx'd 10/14/2022. CHEMO AND RADIATION (completed approx 1 mo ago per pt). [facility] for infusions q2wk. unable to recall name of infusion. Osteoporosis Ruptured intervertebral disc hx Weakness Surgical History H/O eye surgery 1996 H/O knee surgery 1999 History of bronchoscopy History of tonsillectomy and adenoidectomy 1972 Family History Brother Stomach cancer Grandfather (Maternal) Prostate cancer Grandfather (Paternal) Colon cancer Father Heart disease Grandfather Stroke Social History Smoking Status: Former smoker Tobacco Type: Cigarettes packs per day: 1.5; Second Hand Exposure: No; Do You Dip or Chew Tobacco: No; Hx Alcohol Use: No Hx Substance Use: No Preferred Language: Czech Communication Ability: Effective Visual Impairment: No Limitations Hearing Ability: Normal Weeder Thinner Required: No Beliefs That Will Affect Care: None Current Living Situation: Significant Other 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 current occupational status: disabled Feels Safe at Home: Yes Safety Concerns: Feels Safe At This Time Diet: diabetic during the past year weight has: decreased > 10 lbs Assistive Devices: None Review of Systems Review of Systems: Neuro: (-) Falls, trauma, slurred speech HEENT: (-) CHAUHAN, dizziness, dysphagia, visual or auditory changes CV: (-) CP, palpitations, swelling Resp: (+) SOB GI: (-) appetite changes, N/V/D, bowel changes : (-) urinary changes, decreased urine output Skin: (-) rashes Psych: (+) anxiety, depression Physical Exam Physical Exam: Neuro: AAOx4, PERRLA, no aphasia, memory changes, CNII-XII grossly intact HEENT: head normocephalic, moist mucus membranes CV: S1/S2, (-) M/G/R, (-) edema, cap refill < 3 seconds Resp: Lungs coarse throughout GI: Abdomen S/NT/ND, Ax4 bowel sounds, (-) CVA tenderness Musculoskeletal: 5/5 B/L UE strength, 5/5 B/L LE strength. No gait disturbance Skin: (-) rashes , (-) erythema. Psych: euthymic mood, but anxious regarding diagnosis and treatment Results & Data Results & Data Vital Signs (Past 12 Hours) Vital Signs Temp Pulse Pulse Resp BP BP Pulse Ox 03/19/23 13:14 107 H 20 98 03/19/23 12:52 109 H 20 110/67 90 03/19/23 12:11 110 H 20 110/67 99 03/19/23 11:58 90 03/19/23 11:58 90 03/19/23 11:58 109 H 20 111/73 91 03/19/23 11:45 110 H 03/19/23 11:28 36.4 C L 118 H 20 99/63 L 98 O2 Del Method 03/19/23 13:14 Room Air 03/19/23 12:52 Room Air 03/19/23 12:11 Room Air 03/19/23 11:58 Room Air 03/19/23 11:58 Room Air 03/19/23 11:58 Room Air 03/19/23 11:45 03/19/23 11:28 Room Air Laboratory Results Short CBC 03/19/23 Range/Units 11:55 WBC 28.20 H (4.8-10.8) K/ul Hgb 7.4 L (14.0-18.0) g/dl Hct 24.0 L (42.0-52.0) % Plt Count 365 (130-400) K/uL BMP 03/19/23 11:55 Sodium 130 L Potassium 3.4 L Chloride 98 Carbon Dioxide 24 BUN 24 H Creatinine 0.59 L Glucose 109 H Calcium 8.3 L Liver Function 03/19/23 Range/Units 11:55 Total Bilirubin 0.5 (0.2-1.0) mg/dl Direct Bilirubin 0.2 (0-0.2) mg/dl AST 58 H (13-39) U/L ALT 57 H (7-52) U/L Alkaline Phosphatase 109 H (34-104) U/L Albumin 2.7 L (3.4-5.0) gm/dl Code Status & VTE Plan Code Status Full code in the event of cardiac or respiratory arrest VTE Prophylaxis Plan VTE Prophylaxis will be ordered: Yes Supervising Physician Co-Signing Physician Notes 62 year old male that presented to the [facility] today after being referred by his Oncologist, Dr. Pierson for worsening leukocytosis. WBC 28k. Patient had blood work done today which showed leukocytosis of nearly 30. Chest x-ray reveals left-sided cavitary lesion. ED discussed with [facility] ID Dr. Santos. Patient had a chest CT done 10/2022 showing perihilar mass lesion measuring approximately 6 cm. At that time patient had a bronchoscopy done by Dr. Layton confirming his cancer diagnosis. AFB and culture were obtained during the [facility] which were negative. Per discussion with the ED infectious disease recommends an AFB culture and smear every 8 x24 hours and recommends initiation of v ancomycin plus Zosyn. Patient is anemic and is been tranfused a unit . pulm consult requested Neuro: AAOx4, PERRLA, no aphasia, memory changes, CNII-XII grossly intact HEENT: head normocephalic, moist mucus membranes CV: S1/S2, (-) M/G/R, (-) edema, cap refill < 3 seconds Resp: Lungs coarse throughout GI: Abdomen S/NT/ND, Ax4 bowel sounds, (-) CVA tenderness Musculoskeletal: 5/5 B/L UE strength, 5/5 B/L LE strength. No gait disturbance Skin: (-) rashes , (-) erythema. Psych: euthymic mood, but anxious regarding diagnosis and treatment (3) Leukocytosis Leukocytosis type: unspecified Qualified Code(s): D72.829 - Elevated white blood cell count, unspecified
[2023-03-19] MEDS ORDERED: SODIUM CHLORIDE 0.9% 250 ML IV PRN ×2 (16:14→17:53)
[2023-03-19] MEDS ORDERED: ACETAMINOPHEN 325 MG TAB PO ONE (16:14)
[2023-03-19] MEDS ORDERED: POTASSIUM CHLORIDE CRTAB 20 MEQ TABCR PO STA (16:14)
[2023-03-19] MEDS ORDERED: ALBUT/IPRATROP 3MG/0.5MG NEB 3 ML VIAL ONE (17:15)
[2023-03-19] MEDS: ALBUT/IPRATROP 3MG/0.5MG NEB 3 ML VIAL NEB SCH ×3 (17:20→23:06)
[2023-03-19] MEDS ORDERED: ALBUTEROL HFA 8 GM INHALER INH PRN (17:47)
[2023-03-19] MEDS: FOLIC ACID 1 MG in SYRINGE 9.8 ML IV SCH (18:01)
[2023-03-19] MEDS: VANCOMYCIN HCL 1,250 MG in SODIUM CHLORIDE 0.9% 250 ML IV SCH (19:40)
[2023-03-19] MEDS: POTASSIUM CHLORIDE / WTR 10 MEQ/100 ML PLCT IV SCH ×2 (20:06→21:07)
[2023-03-19] MEDS: DOCUSATE SODIUM 100 MG CAP PO SCH (21:11)
[2023-03-19 21:51] LABS: Appearance Urine Clear (Clear); Bacteria Urine Automated Negative (Negative); Bilirubin Urine Negative (Negative); Blood Urine Negative (Negative); Color Urine Dark Yellow; Glucose Urine UA Negative (Negative); Ketones Urine Trace (Negative); Leukocyte Esterase Urine Negative (Negative); Nitrite Urine Negative (Negative); Protein Urine 1+ (Negative); RBC Urine Automated 0-4 /hpf (0-4); Specific Gravity Urine 1.031 (1.000-1.030); Urobilinogen Urine Positive (Negative); pH Urine 5.5 (4.5-7.5)
[2023-03-19] MEDS ORDERED: OPTIRAY 320 100ml IV ONE (22:38)
[2023-03-19 22:56] LABS: Hematocrit (blood only) 22.9 % (42.0-52.0); Hemoglobin 7.3 g/dl (14.0-18.0); Mean Corpuscular Hemoglobin 26.6 pg (25.0-34.0); Mean Corpuscular Hgb Conc 31.9 g/dL (32.0-36.0); Mean Corpuscular Volume 83.6 fL (80.0-100.0); Mean Platelet Volume 9.8 fL (9.4-12.4); Platelet Count 289 K/uL (130-400); RDW Coefficient of Variation 17.2 % (11.5-14.5); RDW Standard Deviation 52.8 fL (36.4-46.3); Red Blood Count 2.74 M/uL (4.70-6.10); White Blood Count 23.52 K/ul (4.8-10.8)
--- NOTE | 2023-03-20 00:18 | CT Scan Report ---
Exam(s): CT CHEST W/WO Contrast IV Amt: 90 ML OPTIRAY 320 EXAM: CT Chest Without and With Intravenous Contrast CLINICAL HISTORY: Reason for exam: cavitary lesions. TECHNIQUE: Axial computed tomography images of the chest without and with intravenous contrast. CTDI is 7.14 mGy and DLP is 458.79 mGy-cm. Automated exposure control was utilized for the study. A dose lowering technique was utilized adhering to the principles of ALARA. CONTRAST: Patient received 90 ML OPTIRAY 320 of IV contrast COMPARISON: February 12, 2023 CT. FINDINGS: There has been severe progression of consolidation in the left upper lobe and superior aspect of the left lower lobe. Extensive irregular cavitation has developed within the areas of consolidation. More diffuse infiltration without evaristo consolidation is seen in the basal aspect of the left lower lobe. The right lung is clear. Moderate sized left pleural effusion is stable. There is no evidence of pneumothorax. There appears to be left hilar and mild subcarinal lymphadenopathy. The left lower lobe pulmonary artery appears occluded but no focal filling defect is seen. IMPRESSION: Marked interval consolidation of the left upper lobe and superior aspect of the left lower lobe. Extensive cavitation has developed within the consolidation. This is associated with left hilar and subcarinal lymphadenopathy. This is nonspecific but very concerning for infection, particularly atypical infections including mycobacterial and fungal. Electronically signed by: Mino Swain MD 03/20/23 00:17 AM
[2023-03-20 05:39] LABS: Adenovirus F 40/41 PCR Not Detected (NotDetected); Astrovirus PCR Not Detected (NotDetected); Campylobacter PCR Not Detected (NotDetected); Cryptosporidium PCR Not Detected (NotDetected); Cyclospora cayetanensis PCR Not Detected (NotDetected); Entamoeba histolytica PCR Not Detected (NotDetected); Enteroaggregative E.coli(EAEC) Not Detected (NotDetected); Enteropathogenic E.coli (EPEC) Not Detected (NotDetected); Enterotoxigenic E.coli (ETEC) Not Detected (NotDetected); Giardia lamblia PCR Not Detected (NotDetected); Norovirus GI/GII PCR Not Detected (NotDetected); Plesiomonas shigelloides PCR Not Detected (NotDetected); Rotavirus A PCR Not Detected (NotDetected); Salmonella PCR Not Detected (NotDetected); Sapovirus PCR Not Detected (NotDetected); Shiga-like Toxin E.coli (STEC) Not Detected (NotDetected); Shigella/Enteroinvasive E.coli Not Detected (NotDetected); Vibrio cholerae PCR Not Detected (NotDetected); Vibrio species PCR Not Detected (NotDetected); Yersinia enterocolitica PCR Not Detected (NotDetected)
[2023-03-20] MEDS: ALBUT/IPRATROP 3MG/0.5MG NEB 3 ML VIAL NEB SCH ×5 (06:10→19:40)
[2023-03-20] MEDS: VANCOMYCIN HCL 1,250 MG in SODIUM CHLORIDE 0.9% 250 ML IV SCH ×3 (06:16→21:59)
[2023-03-20] MEDS: DOCUSATE SODIUM 100 MG CAP PO SCH ×2 (07:31→21:54)
[2023-03-20] MEDS: HEPARIN SOD 5,000 UNIT/0.5 ML VIAL SQ SCH ×2 (07:57→21:59)
[2023-03-20] MEDS: ADVANCED PROBIOTIC 1250 MG CAPSULE PO SCH (07:57)
[2023-03-20] MEDS: FOLIC ACID 1 MG in SYRINGE 9.8 ML IV SCH (07:57)
[2023-03-20] MEDS: TAMSULOSIN HCL 0.4 MG CAP PO SCH (07:58)
[2023-03-20] MEDS ORDERED: GATIFLOXACIN OP SOLN PER DROP CHARGE OP SCH (09:00)
[2023-03-20] MEDS ORDERED: KETOROLAC 0.5% OP SOLN 5 ML BTL OP SCH (09:00)
[2023-03-20] MEDS ORDERED: prednisoLONE acetate 1% OP SUSP 5 ML BTL OP SCH (09:00)
--- NOTE | 2023-03-20 10:39 | Pharmacy Report ---
Pharmacy Vanc AUC Short Note - Date of Service March 20, 2023 - Assessment & Plan Assessment 62 year old M receiving vancomycin/zosyn for treatment of pulmonary infection. Pertinent microbiologic data includes: blood and sputum culture currently NGTD. Previously (January of 2023), the patient suffered from a MRSA bacteremia (EFRA confirmed at 2 per turbidity method). Per previous records, the patient had several therapeutic troughs on vancomycin 1250 mg IV q8 hours. Day # 2 of antimicrobial therapy. Plan Vancomycin * AUC/EFRA is the preferred PK/PD target for vancomycin * AUC guided dosing is effective and associated with decreased risk of nephrotoxicity compared to traditional trough targets. Previous AUC guided information indicates that patient achieves therapeutic levels on vancomycin 1250 mg IV q8 hours. Information gathered from 3 months ago with no significant changes in weight or kidney function. Patient received IV dye on 03/20/23. * Based upon previous information, will continue with vancomycin 1250 mg IV q8 predicted to achieve target AUC/EFRA of 400-600 mg/L.hr ([employer] indicating slightly higher AUC but not incorporating previous information) and may be associated with a 20 % risk of nephrotoxicity. Due to aggressive regimen, will assess level early (prior to 0600 dose on 03/21/23) with quick follow up by third shift pharmacist. * Trough ordered for 0600 03/21/23 Pharmacy will continue to follow and will adjust dose/frequency as necessary. Thank you.
--- NOTE | 2023-03-20 10:48 | Pulmonary Consultation ---
Date of Consultation March 20, 2023 Assessment & Plan (1) Cavitary pneumonia: (2) Metastatic primary lung cancer: (3) Shortness of breath: Plan 62-year-old male with squamous cell carcinoma status post chemo and immunotherapy who presented with extensive left-sided pneumonia with a very large cavitary lesion. Prior bronchoscopy cultures were negative for TB or AFB organisms. Patient is currently being ruled out for tuberculosis. He is coughing up very large amounts of sputum and has now had 4 AFB sputum sent. ID consultation is pending. His white count has improved significantly with vancomycin and Zosyn. Will defer further antibiotics to the primary team and ID. I do not see a role for bronchoscopy at this time given that he is clinically improving and he is able to produce very large amounts of sputum. Recommend palliative care input given frequent hospitalizations and extensive metastatic pulmonary disease. I have no further input at this time. Thank you for allowing me to participate in the care of the patient. Please call with questions. History of Present Illness Reason for Consultation: Cavitary lesion Attending Physician: Narayan Underwood MD History of Present Illness 62-year-old male with a past medical history of metastatic lung squamous cell carcinoma which is PD-L1 positive who presented to the ER yesterday after being referred by his oncologist Dr. Pierson for leukocytosis. CT imaging revealed extensive left cavitary lesion. Patient has previous bronchoscopy with negative AFB cultures. He is now being treated for pneumonia. He is currently on low- flow oxygen. He endorses shortness of breath with mild exertion. He notes very significant weight loss of 20 pounds since October. He has been on immunotherapy and chemotherapy. He had a tumultuous course in January and was diagnosed with MRSA bacteremia due to port infection. Pulmonary is consulted to assist in management of the cavitary lesion. He is currently on vancomycin and Zosyn. White count has improved. ID consult was placed by the primary team. Allergies Allergy/AdvReac Type Severity Reaction Status Date / Time No Known Allergies Allergy Verified 03/11/23 16:08 Home Medications Medication Instructions Recorded Confirmed Type albuterol sulfate 90 mcg/actuation 2 puff inhalation Q4 PRN Wheezing 10/29/22 03/19/23 History aerosol inhaler ipratropium 0.5 mg-albuterol 3 mg 3 ml inhalation QID PRN Wheezing 10/29/22 03/19/23 History (2.5 mg base)/3 mL nebulization soln tamsulosin 0.4 mg capsule 0.8 mg PO QAM 11/19/22 03/19/23 History docusate sodium 100 mg tablet 100 mg PO BID 12/24/22 03/19/23 History (Stool Softener) loratadine 10 mg tablet (Claritin) 10 mg PO QAM 12/24/22 03/19/23 History gatifloxacin 0.5 % eye drops 0 drp ophthalmic (eye) DAILY 03/19/23 03/19/23 History ibuprofen 200 mg tablet 200 mg PO TID PRN Pain 03/19/23 03/19/23 History ketorolac 0.5 % eye drops 0 drp ophthalmic (eye) DAILY 03/19/23 03/19/23 History prednisolone acetate 1 % eye 0 drp ophthalmic (eye) DAILY 03/19/23 03/19/23 History drops,suspension Patient History Medical History (Updated 03/20/23 @ 10:47 by Lucas Espinoza MD) BPH (benign prostatic hyperplasia) Cavitary pneumonia DM type 2 (diabetes mellitus, type 2) pt denies Ex-smoker Frequent urination ONGOING ISSUE Hepatitis C Active History of chest pain RECENT DX LUNG CA...TESTING...C/P SUSPECTED TO BE DUE TO TUMOR LOCATION AT LUNG ENTRY - WANTED TO PLACE A STENT/UNABLE TO STENT History of fracture of orbit HX RIGHT ORBITAL FX...SX/TITANIUM IMPLANT History of fractured vertebra History of influenza OCT 2022 History of recent hospitalization 02/2023 [facility] - MRSA bacteremia secondary to port infection, bilateral lobe pneumonia, MRSA cellulitis/radiation dermatitis of the left upper chest. History of vascular access device removed Lung cancer Dx'd 10/14/2022. CHEMO AND RADIATION (completed approx 1 mo ago per pt). [facility] for infusions q2wk. unable to recall name of infusion. Metastatic primary lung cancer Osteoporosis Ruptured intervertebral disc hx Weakness Surgical History H/O eye surgery 1996 H/O knee surgery 1999 History of bronchoscopy History of tonsillectomy and adenoidectomy 1972 Family History Brother Stomach cancer Grandfather (Maternal) Prostate cancer Grandfather (Paternal) Colon cancer Father Heart disease Grandfather Stroke Social History Smoking Status: Former smoker Tobacco Type: Cigarettes packs per day: 1.5; Second Hand Exposure: No; Do You Dip or Chew Tobacco: No; Hx Alcohol Use: No Hx Substance Use: No Preferred Language: Jordanian Communication Ability: Effective Visual Impairment: No Limitations Hearing Ability: Normal Retread Supervisor Required: No Beliefs That Will Affect Care: None Current Living Situation: Significant Other 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 Eyes: Pupils are equal round and reactive to light. Conjunctivae are normal. Anicteric sclera. Ears nose, mouth and throat: Mallampati class 1. Normal posterior oropharynx. Uvula is midline. Neck: Trachea is midline. Visual inspection is normal. Respiratory: Diffuse rales in the left upper lobe. Prolonged phase of exhalation. Mild tachypnea. Cardiovascular: Regular rate and rhythm. No murmurs. No edema. Gastrointestinal: Normal bowel sounds, soft, nontender and nondistended. No hepatosplenomegaly noted. Musculoskeletal: No cyanosis. Patient is able to move all extremities. Strength is 5 out of 5 in the upper and lower extremities. Skin: No rashes, warm dry and intact. Neurologic: No obvious focal neurological deficits seen. Psychiatric: Alert and oriented x3 with a euthymic affect. Results & Data Results & Data Vital Signs (Past 12 Hours) Vital Signs Temp Pulse Pulse Resp BP BP Pulse Ox 03/20/23 09:05 101 H 20 96 03/20/23 08:00 36.7 C 104 H 18 98/61 L 98 03/20/23 06:11 107 H 19 100 03/20/23 02:44 106 H 20 110/70 98 03/19/23 23:40 36.4 C L 109 H 16 103/66 97 03/20/23 00:00 03/19/23 23:06 106 H 22 98 O2 Del Method O2 Flow Rate 03/20/23 09:05 Nasal Cannula 2 03/20/23 08:00 Nasal Cannula 2 03/20/23 06:11 Nasal Cannula 2 03/20/23 02:44 Nasal Cannula 2 03/19/23 23:40 Nasal Cannula 2 03/20/23 00:00 Nasal Cannula 2 03/19/23 23:06 Nasal Cannula 2 PG Care Time/CCT Total # of Minutes Spent Total Time Spent with Patient: Total time spent is greater than 50% in coordination of care (as documented) at patient's floor/unit and/or counseling patient: Coding Level of Care Code 33914 INT INP/OBS CARE 3/75MIN Diagnoses Cavitary pneumonia J18.9; J98.4 Metastatic primary lung cancer C34.90 Shortness of breath R06.02
[2023-03-20 10:59] LABS: Hematocrit (blood only) 23.4 % (42.0-52.0); Hemoglobin 7.4 g/dl (14.0-18.0); Mean Corpuscular Hemoglobin 26.2 pg (25.0-34.0); Mean Corpuscular Hgb Conc 31.6 g/dL (32.0-36.0); Mean Platelet Volume 10.1 fL (9.4-12.4); Platelet Count 282 K/uL (130-400); RDW Coefficient of Variation 17.6 % (11.5-14.5); RDW Standard Deviation 53.2 fL (36.4-46.3); Red Blood Count 2.82 M/uL (4.70-6.10); White Blood Count 19.88 K/ul (4.8-10.8)
[2023-03-20] MEDS ORDERED: PIPERACILLIN/TAZOBACTAM 4.5 GM (over 30 mins) IV ONE (11:00)
[2023-03-20 11:13] LABS: Albumin Globulin Ratio 0.8 (0.9-2); Albumin Level 2.2 gm/dl (3.4-5.0); BUN Creatinine Ratio 38.6 (10-20); Bilirubin,Total 0.6 mg/dl (0.2-1.0); Calcium 7.6 mg/dl (8.6-10.3); Creatinine Clr Calc Pharmacy 150.2 ml/min; Est GFR (African American) 141.9 ml/min; Est GFR (Non-African American) 122.4 ml/min; Globulin 2.8 gm/dl (2.5-4.0); Magnesium 1.6 mg/dl (1.7-2.4); Potassium 3.7 mmol/L (3.5-5.1)
--- NOTE | 2023-03-20 11:43 | Consultation ---
Date of Consultation March 19, 2023 Assessment & Plan (1) Cavitary pneumonia: Patient has a "perfect storm" combination of longterm smoking induced lung damage, anatomic distortion and airway obstruction from his squamous cell carcinoma, further induced distortion and scarring from his radiation, and potential previous seeding from MRSA bacteremia as well as his previous postobstructive pneumonia. Certainly prudent to assess for acid-fast and fungal infections but we may have more than enough grounds for the current presentation based on bacterial infection in an anatomically very abnormal upper left lung. Will defer to the hospitalist and infectious disease teams to determine optimal work-up and empiric therapeutic approach. Note that his last cytotoxic treatments were 2 months ago and at this time the oncologic treatment he received on March 05 was only immune checkpoint inhibitor (ICI) therapy which if anything augments immune response. He probably is immunocompromised based on just the general debility that has developed in the situation but is not specifically neutropenic. While immune checkpoint inhibitor therapy may in fact have lung toxicity, the lack of contralateral changes and the pre-existing significant changes in the left lung make this more likely an acute infectious process. (2) Squamous cell carcinoma of left lung: Patient has a squamous cell carcinoma of the lung presenting as IIIC disease. The semantics can be unfortunately misleading. The process of the lung spreading to regional lymph nodes is indeed called "metastatic spread" but we would usually reserve the label "metastatic lung cancer" to true stage IV disease spread beyond those regional lymph nodes. It is not clear that he ever had stage IV disease as the lesions in the rectosigmoid are equivocal and probably not related. He has finished primary chemoradiation with a curative intent but recognizing that there is a significant risk of persistent and ultimately relapsing disease. For that reason our next step would be ICI maintenance but that will have to remain on hold until we have stabilized his acute lung situation (3) Hepatitis C: Patient has hepatitis C and unfortunately continues to show active circulating virus as per lab work done here in February. He had been seen previously by the GI team at [facility] but that was apparently only a one-time evaluation and so it is not clear that he has been appropriately treated for that. His hepatitis C is probably of lesser immediate priority than his acute lung process but GI consultation would certainly be worthwhile and if he is to be here for an extended period of time perhaps it would be valuable for them to comment as this may factor into his larger prognostication. (4) Anemia: Severe anemia which will require transfusion support. B12 and folic acid levels are adequate and while his iron studies are low the markedly elevated ferritin certainly signals adequate iron stores overall with in inflammatory suppression of iron utilization. Marrow aspiration and biopsy might better define any additional elements to his anemia but will not spinning frame changer so do not seem to be worthwhile at this time. (5) Nutrition disorder: Severely depleted nutritionally and will certainly be worthwhile for nutrition to work with him during this hospitalization to optimize approach to that both during hospitalization and following discharge Plan 1. Oncologic therapy will be held indefinitely though he has not received cytotoxic treatment since January so it should not be intrinsically impeding his response to what looks like a severe lung infection 2. Significantly nutritionally depleted and augmenting his nutritional status will be an important adjunct to the specific treatment for what looks like a severe infectious/cavitary 3. Certainly prudent to evaluate for acid-fast and fungal infection though the background of COPD/cancer/radiation-induced tissue damage and anatomic distortion especially with probable previous bacterial seeding from his postobstructive pneumonia and subsequent MRSA bacteremia may offer a more than adequate explanation for the current presentation. Aggressive empiric antibiotic therapy is certainly worthwhile 4. Anemia probably reflects the negative impact of chemoradiation on marrow function along with the ongoing suppression of erythropoiesis by dramatic inflammation but does not seem to be a consequence of nutritional factors specific to red cell production. He seems to have probable adequate iron stores just some problems with inflammatory modulated utilization suppression. Transfusion should be incorporated with the usual parameters of the threshold 7 g/dL target 5. GI consultation comment on his prognosis and potential treatment options for hepatitis C might be important in helping us to better look at his overall medical status and making best decisions for short and medium term management from a malignancy and infectious disease perspective. Immediate management as per the hospitalist and potentially ID teams, we will continue to monitor History of Present Illness Reason for Consultation: Patient with locally advanced squamous cell carcinoma of the lung status post chemoradiation and his first dose of "maintenance" immune checkpoint inhibitor therapy on 03/05/2023 admitted with cavitary pneumonia and anemia Attending Physician: Narayan Underwood MD History of Present Illness 1 to 1.5 pack/day smoker for 40 years who quit in 2015. He retrospectively noted that he had had hemoptysis as long ago as last summer and a 20 pound weig ht loss through the second half of 2022. He had been admitted in October of this year with acute respiratory decompensation with chest CT showing a large infiltrating left perihilar mass encasing and occluding the bronchovascular structures of the left hilum. Bronchoscopy did indicate a poorly differentiated squamous cell carcinoma with a PDL1 TPS score of 5%. Brain MRI showed no metastases there, PET scan showed expected FDG avidity in the central left lung mass, and a number of active mediastinal and left supraclavicular lymph nodes, with some additional activity in the rectal and sigmoid areas though this was nonspecific and seem unrelated to the lung process. While informal initial review of the cervical spine on PET scan raised a concern over a possible lesion there, subsequent formal diagnostic radiology interpretation felt that this was not a metastatic or malignant lesion. He had stage IIIC disease but guarded performance status based on his smoking related comorbidities and the physiologically significant involvement at first presentation. Given localized and theoretically potentially "curable" disease (though we very strongly emphasized that complete and durable responses were seen in only a fraction of patients with such advanced presentation), he was offered and chose to proceed with chemoradiation with weekly Taxol/carboplatinum starting 11/26/2022 and finish with cumulative radiation 6000 cGy. He required hospital admission for MRSA bacteremia and port infection soon after completing the chemoradiation with extended antibiotics thereafter. He was briefly admitted again in February for transient mental status changes that were probably medication related. Follow-up imaging continued to show significant changes in the left lung though those were not unexpected based on his disease, radiation changes, and the interim infection. There was no clear malignant progression and he continues without any radiologic evidence of APPLIED RESEARCHER metastases. He has been markedly anemic even with what looks like stable nutritional studies suggesting raymundo adverse effect of the chemoradiation possibly exacerbated by ongoing inflammatory suppression of erythropoiesis. Weight loss/nutrition have been significant issues as well He had seemed somewhat stabilized in the second half of February and on that basis started on immune checkpoint inhibitor maintenance with durvalumab on 03/05/2023. He has not had specific toxicities that we can attribute to that but on presentation 03/19/2023 for his second dose reported that he was coughing up brown phlegm, having increased respiratory difficulties. Chest imaging showed multiple cavities with air-fluid levels suggestive of a cavitary pneumonia and he is admitted for further care Allergies Allergy/AdvReac Type Severity Reaction Status Date / Time No Known Allergies Allergy Verified 03/11/23 16:08 Home Medications Medication Instructions Recorded Confirmed Type albuterol sulfate 90 mcg/actuation 2 puff inhalation Q4 PRN Wheezing 10/29/22 03/19/23 History aerosol inhaler ipratropium 0.5 mg-albuterol 3 mg 3 ml inhalation QID PRN Wheezing 10/29/22 03/19/23 History (2.5 mg base)/3 mL nebulization soln tamsulosin 0.4 mg capsule 0.8 mg PO QAM 11/19/22 03/19/23 History docusate sodium 100 mg tablet 100 mg PO BID 12/24/22 03/19/23 History (Stool Softener) loratadine 10 mg tablet (Claritin) 10 mg PO QAM 12/24/22 03/19/23 History gatifloxacin 0.5 % eye drops 0 drp ophthalmic (eye) DAILY 03/19/23 03/19/23 History ibuprofen 200 mg tablet 200 mg PO TID PRN Pain 03/19/23 03/19/23 History ketorolac 0.5 % eye drops 0 drp ophthalmic (eye) DAILY 03/19/23 03/19/23 History prednisolone acetate 1 % eye 0 drp ophthalmic (eye) DAILY 03/19/23 03/19/23 History drops,suspension Patient History Medical History (Updated 03/20/23 @ 12:10 by Cassius Lee MD) BPH (benign prostatic hyperplasia) Cavitary pneumonia DM type 2 (diabetes mellitus, type 2) pt denies Ex-smoker Frequent urination ONGOING ISSUE Hepatitis C Active History of chest pain RECENT DX LUNG CA...TESTING...C/P SUSPECTED TO BE DUE TO TUMOR LOCATION AT LUNG ENTRY - WANTED TO PLACE A STENT/UNABLE TO STENT History of fracture of orbit HX RIGHT ORBITAL FX...SX/TITANIUM IMPLANT History of fractured vertebra History of influenza OCT 2022 History of recent hospitalization 02/2023 [facility] - MRSA bacteremia secondary to port infection, bilateral lobe pneumonia, MRSA cellulitis/radiation dermatitis of the left upper chest. History of vascular access device removed Lung cancer Dx'd 10/14/2022. CHEMO AND RADIATION (completed approx 1 mo ago per pt). [facility] infusions q2wk. unable to recall name of infusion. Metastatic primary lung cancer Osteoporosis Ruptured intervertebral disc hx Weakness Surgical History H/O eye surgery 1996 H/O knee surgery 1999 History of bronchoscopy History of tonsillectomy and adenoidectomy 1973 Family History Brother Stomach cancer Grandfather (Maternal) Prostate cancer Grandfather (Paternal) Colon cancer Father Heart disease Grandfather Stroke Social History Smoking Status: Former smoker Tobacco Type: Cigarettes packs per day: 1.5; Second Hand Exposure: No; Do You Dip or Chew Tobacco: No; Hx Alcohol Use: No Hx Substance Use: No Preferred Language: Persian Communication Ability: Effective Visual Impairment: No Limitations Hearing Ability: Normal Press Feeder Broomcorn Required: No Beliefs That Will Affect Care: None Current Living Situation: Significant Other 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 current occupational status: disabled Feels Safe at Home: Yes Safety Concerns: Feels Safe At This Time Diet: diabetic during the past year weight has: decreased > 10 lbs Assistive Devices: None Physical Exam Physical Exam: He is alert, mental status/cognition are intact at the time of my exam both midday and in the evening 03/19/2023 did not seem to be "toxic" though he was in some ongoing mild to moderate respiratory distress There is no meningismus, you do not have clearly palpable pathologic adenopathy in cervical supraclavicular or axillary regions. There were marked rhonchi but nevertheless some air exchange in the upper left lobe, otherwise lower left and right lung seem relatively clear He was tachycardic but with a regular rhythm without rubs or murmurs Abdomen was without obvious organomegaly or mass He has diffuse muscle wasting Results & Data Vital Signs (Past 12 Hours) Vital Signs Temp Pulse Resp BP BP Pulse Ox O2 Del Method 03/20/23 11:16 105 H 18 97 Nasal Cannula 03/20/23 09:05 101 H 20 96 Nasal Cannula 03/20/23 08:00 36.7 C 104 H 18 98/61 L 98 Nasal Cannula 03/20/23 06:11 107 H 19 100 Nasal Cannula 03/20/23 02:44 106 H 20 110/70 98 Nasal Cannula 03/19/23 23:40 36.4 C L 109 H 16 103/66 97 Nasal Cannula 03/20/23 00:00 Nasal Cannula O2 Flow Rate 03/20/23 11:16 2 03/20/23 09:05 2 03/20/23 08:00 2 03/20/23 06:11 2 03/20/23 02:44 2 03/19/23 23:40 2 03/20/23 00:00 2 PG Care Time/CCT Total # of Minutes Spent Total Time Spent with Patient: Total time spent is greater than 50% in coordination of care (as documented) at patient's floor/unit and/or counseling patient: Coding Level of Care Code 70970 IN/OBS CONSULT LVL 4,60M History Expanded Problem Focused Exam Expanded Problem Focused Medical Decision Making High Complexity Diagnoses Cavitary pneumonia J18.9; J98.4 Squamous cell carcinoma of left lung C34.92 Hepatitis C B19.20 Anemia D64.9 Nutrition disorder E63.9 Comment Consultation assessment and conversation with patient actually performed 03/19/2023
--- NOTE | 2023-03-20 14:32 | Hospitalist Progress Note ---
Date of Service March 20, 2023 Assessment & Plan (1) Squamous cell carcinoma of left lung: (2) Weight loss: (3) Leukocytosis: (4) Weakness: (5) BPH (benign prostatic hyperplasia): Plan 62 year old with SCC left lung; follows Dr. Pierson. Presents by recommendation of Dr. Aleman for worsening leukocytosis. Dx SCC left lung 10/[address] Layton. Imaging today suggestive of cavitary lesions. AF culture Q8 x24 hours. Vanco + Zosyn per ID. 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 Extensive cavitation within the consultation. Labs reviewed; leukocytosis improved from 28,00 to 19,000 Gram stain of the sputum shows rare gram-positive bacilli, gram-positive cocci and gram-negative bacilli. AFB sputum smear culture sent. Will await results. Continue on Vanco and Zosyn. Obtain MRSA nares Appreciate pulmonology and oncology's input. Oncology also recommends GI consultation given history of hep C. Continue airway clearance therapy with flutter valve. Hypertonic saline nebs. Await infectious disease input. Symptomatic Anemia status post 1 unit of RBC transfusion Hemoglobin stable at 7.4. Continue to monitor. Diarrhea: Occuring x 48 hours Likely side effect of his chemo tx GI PCR negative Hypokalemia: K+ 3.0; replace with 40 mEq PO K+ rider x2 Recheck BMP in AM BPH: Takes tamsulosin; continue Disposition: PCP: Dr. Genao CODE STATUS: Full code VTE prophylaxis: Teds and SCDs for now + Heparin SQ Time spent evaluating patient, direct bedside care, chart review, placing orders, interpretation of diagnostic studies, discussion with consultants, patient, and family members, as well as other required patient management activities is 60 minutes Please note the above document was generated using voice recognition software. It may contain grammatical, syntax or spelling errors. Any formal questions or concerns about the content, text or information contained within the body of this dictation should be directly addressed to the provider for clarification Admission and Anticipated Discharge Date Admission Date: March 19, 2023 Subjective Patient seen and examined at bedside. He is lying in the bed comfortably; not in any distress. Reports that he has been coughing up sputum. Review of Systems Review of Systems: All systems reviewed & are unremarkable except as noted in Subjective Physical Exam Physical Exam: Constitutional: WD/WN, vitals as above, NAD, sitting up in bed, pleasant, conversing easily Neck: trachea midline, no thyromegaly normal visual inspection Respiratory: Decreased breath sound on right lower lobe Cardiovascular: RRR, no murmur, no edema Vessels: no JVD or carotid bruit Chest: normal inspection of chest Abdomen: normal bowel sounds, soft, nontender, no hepatosplenomegaly Musculoskeletal: no cyanosis or clubbing, extremities motor strength 5/5 Skin: no rashes, warm and dry normal turgor Neurologic: PERRL, EOMI, accommodation nl, no face palsy, no dysarthria CN's II- XI intact bilaterally and moves all extremities Results & Data Results & Data Vital Signs (Past 12 Hours) Vital Signs Temp Pulse Pulse Resp BP BP Pulse Ox 03/20/23 08:00 03/20/23 08:00 108 H 03/20/23 12:26 37.1 C 113 H 20 100/65 98 03/20/23 11:16 105 H 18 97 03/20/23 09:05 101 H 20 96 03/20/23 08:00 36.7 C 104 H 18 98/61 L 98 03/20/23 06:11 107 H 19 100 03/20/23 02:44 106 H 20 110/70 98 O2 Del Method O2 Flow Rate 03/20/23 08:00 Nasal Cannula 1.5 03/20/23 08:00 03/20/23 12:26 Nasal Cannula 1.5 03/20/23 11:16 Nasal Cannula 2 03/20/23 09:05 Nasal Cannula 2 03/20/23 08:00 Nasal Cannula 2 03/20/23 06:11 Nasal Cannula 2 03/20/23 02:44 Nasal Cannula 2 Laboratory Results Laboratory Results WBC 19.88 K/ul (4.8-10.8) H 03/20/23 10:23 RBC 2.82 M/uL (4.70-6.10) L 03/20/23 10:23 Hgb 7.4 g/dl (14.0-18.0) L 03/20/23 10:23 POC Hgb 6.1 g/dl (14.0-18.0) L* 03/19/23 13:53 Hct 23.4 % (42.0-52.0) L 03/20/23 10:23 POC Hct 18 % (42-52) L* 03/19/23 13:53 MCV 83.0 fL (80.0-100.0) 03/20/23 10:23 MCH 26.2 pg (25.0-34.0) 03/20/23 10: MCHC 31.6 g/dL (32.0-36.0) L 03/20/23 10: RDW Std Deviation 53.2 fL (36.4-46.3) H 03/20/23 10: RDW Coeff of Mathieu 17.6 % (11.5-14.5) H 03/20/23 10: Plt Count 282 K/uL (130-400) 03/20/23 10:23 MPV 10.1 fL (9.4-12.4) 03/20/23 10:23 Immature Gran % (Auto) 1.5 % 03/19/23 11:55 Neut % (Auto) 91.9 % 03/19/23 11:55 Lymph % (Auto) 2.0 % 03/19/23 11:55 Casey % (Auto) 4.3 % 03/19/23 11:55 Eos % (Auto) 0.1 % 03/19/23 11:55 Baso % (Auto) 0.2 % 03/19/23 11:55 Neut # (Auto) 25.90 K/uL (1.40-6.50) H 03/19/23 11:55 Lymph # (Auto) 0.57 K/uL (1.2-3.4) L 03/19/23 11:55 Casey # (Auto) 1.22 K/uL (0.11-0.59) H 03/19/23 11:55 Eos # (Auto) 0.02 K/uL (0-0.50) 03/19/23 11:55 Baso # (Auto) 0.07 K/uL (0-0.2) 03/19/23 11:55 Immature Gran # (Auto) 0.42 K/uL (0.01-0.20) H 03/19/23 11:55 Hypochromasia Present 03/19/23 11:55 PT 12.0 Seconds (9.0-12.0) 03/19/23 11:55 INR 1.1 (0.9-1.1) 03/19/23 11:55 APTT 26.6 Seconds (21.0-31.0) 03/19/23 11:55 PTT Ratio 0.9 03/19/23 11:55 ABG pH 7.49 (7.35-7.45) H 03/19/23 12:54 ABG pCO2 27 mmHg (35-46) L 03/19/23 12:54 ABG pO2 91 mmHg (80-95) 03/19/23 12:54 ABG HCO3 21 mmol/L (19-24) 03/19/23 12:54 ABG O2 Saturation 99.3 % (90-95) H 03/19/23 12:54 ABG Base Excess -1.4 mEq/L (-9-1.8) 03/19/23 12:54 Keon Test Pos (Pos) 03/19/23 12:54 Oxygen Given ROOM AIR 03/19/23 12:54 POC Sodium 132 mmol/L (135-144) L 03/19/23 13:53 Sodium 132 mmol/L (136-145) L 03/20/23 10:23 POC Potassium 3.0 mmol/L (3.3-5.0) L 03/19/23 13:53 Potassium 3.7 mmol/L (3.5-5.1) 03/20/23 10:23 POC Chloride 100 mmol/L (101-112) L 03/19/23 13:53 Chloride 103 mmol/L (98-107) 03/20/23 10:23 Carbon Dioxide 22 mmol/L (21-32) 03/20/23 10:23 POC Total CO2 20 mmol/L (24-31) L 03/19/23 13:53 Anion Gap 7 (3-11) 03/20/23 10:23 POC Anion Gap 17.0 mmol/L (16-25) 03/19/23 13:53 POC BUN 19 mg/dl (7-18) H 06/08/23 13:53 BUN 17 mg/dl (6-23) 03/20/23 10:23 Creatinine 0.44 mg/dl (0.6-1.4) L 03/20/23 10:23 POC Creatinine 0.5 mg/dl (0.6-1.3) L 03/19/23 13:53 Est Cr Clr Drug Dosing 150.2 ml/min 03/20/23 10:23 Est GFR ( Amer) 141.9 ml/min 03/20/23 10:23 Est GFR (Non-Af Amer) 122.4 ml/min 03/20/23 10:23 BUN/Creatinine Ratio 38.6 (10-20) H 03/20/23 10:23 Glucose 125 mg/dl (70-99(Fasting)) H 03/20/23 10:23 POC Glucose (other) 108 mg/dl (70-99) H 03/19/23 13:53 Lactate 1.4 mmol/L (0.4-2.0) 03/19/23 12:53 Calcium 7.6 mg/dl (8.6-10.3) L 03/20/23 10:23 POC Ioniz Calcium Antonio 1.05 mmol/l (1.12-1.32) L 03/19/23 13:53 Magnesium 1.6 mg/dl (1.7-2.4) L 03/20/23 10:23 Total Bilirubin 0.6 mg/dl (0.2-1.0) 03/20/23 10:23 Direct Bilirubin 0.2 mg/dl (0-0.2) 03/19/23 11:55 AST 38 U/L (13-39) 03/20/23 10:23 ALT 45 U/L (7-52) 03/20/23 10:23 Alkaline Phosphatase 90 U/L (34-104) 03/20/23 10:23 Troponin I High Sens 19.3 pg/ml (0-20) 03/19/23 11:55 Total Protein 5.0 gm/dl (6.0-8.3) L D 03/20/23 10:23 Albumin 2.2 gm/dl (3.4-5.0) L 03/20/23 10:23 Globulin 2.8 gm/dl (2.5-4.0) 03/20/23 10:23 Albumin/Globulin Ratio 0.8 (0.9-2) L 03/20/23 10:23 Procalcitonin 1.07 ng/ml (0-0.5) H 03/19/23 11:55 Urine Color Dark Yellow 03/19/23 Unknown Urine Appearance Clear (Clear) 03/19/23 Unknown Urine pH 5.5 (4.5-7.5) 03/19/23 Unknown Ur Specific Chapin 1.031 (1.000-1.030) H 03/19/23 Unknown Urine Protein 1+ (Negative) H 03/19/23 Unknown Urine Glucose (UA) Negative (Negative) 03/19/23 Unknown Urine Ketones Trace (Negative) H 03/19/23 Unknown Urine Blood Negative (Negative) 03/19/23 Unknown Urine Nitrite Negative (Negative) 03/19/23 Unknown Urine Bilirubin Negative (Negative) 03/19/23 Unknown Urine Urobilinogen Positive (Negative) H 03/19/23 Unknown Ur Leukocyte Esterase Negative (Negative) 03/19/23 Unknown Urine WBC (Auto) 1-5 /hpf (0-5) 03/19/23 Unknown Urine RBC (Auto) 0-4 /hpf (0-4) 03/19/23 Unknown U Hyaline Cast (Auto) 1-5 /lpf (0-5) 03/19/23 Unknown U Epithel Cells (Auto) 10-20 /lpf (0-5) H 03/19/23 Unknown Urine Bacteria (Auto) Negative (Negative) 03/19/23 Unknown Stl C. cayetanensis PCR Not Detected (NotDetected) 03/20/23 02:40 Stool Rotavirus A PCR Not Detected (NotDetected) 03/20/23 02:40 Stl Adenov F 41 PCR Not Detected (NotDetected) 03/20/23 02:40 Stool Astrovirus (PCR) Not Detected (NotDetected) 03/20/23 02:40 Stool Campylobacter PCR Not Detected (NotDetected) 03/20/23 02:40 Stl C. diff Tox B Gene Negative Cdiff Gene (Neg) 03/20/23 02:40 Stool Cryptosporidium PCR Not Detected (NotDetected) 03/20/23 02:40 Stl E.coli Shiga Tox PCR Not Detected (NotDetected) 03/20/23 02:40 Stl Enterotoxigenic E PCR Not Detected (NotDetected) 03/20/23 02:40 Stool EPEC (PCR) Not Detected (NotDetected) 03/20/23 02:40 Stool EAEC (PCR) Not Detected (NotDetected) 03/20/23 02:40 Stl E. histolytica PCR Not Detected (NotDetected) 03/20/23 02:40 Stool Giardia Lamblia PCR Not Detected (NotDetected) 03/20/23 02:40 Stool Salmonella PCR Not Detected (NotDetected) 03/20/23 02:40 Stool Sapovirus (PCR) Not Detected (NotDetected) 03/20/23 02:40 Stl P. shigelloides PCR Not Detected (NotDetected) 03/20/23 02:40 Stl Shigella/EIEC PCR Not Detected (NotDetected) 03/20/23 02:40 St Y.enterocolitica PCR Not Detected (NotDetected) 03/20/23 02:40 Stool Vibrio (PCR) Not Detected (NotDetected) 03/20/23 02:40 Stl Vibrio cholerae PCR Not Detected (NotDetected) 03/20/23 02:40 Stl Norovirus GI/GII PCR Not Detected (NotDetected) 03/20/23 02:40 Adenovirus (PCR) Not Detected (NotDetected) 03/19/23 12:08 B. pertussis DNA (PCR) Not Detected (NotDetected) 03/19/23 12:08 B.parapertussis DNA PCR Not Detected (NotDetected) 03/19/23 12:08 C. pneumoniae DNA (PCR) Not Detected (NotDetected) 03/19/23 12:08 Coronavirus OC43 (PCR) Not Detected (NotDetected) 03/19/23 12:08 Coronavirus HKU1 (PCR) Not Detected (NotDetected) 03/19/23 12:08 Coronavirus 229E (PCR) Not Detected (NotDetected) 03/19/23 12:08 SARS-CoV-2 (PCR) Not Detected (NotDetected) 03/19/23 12:08 Coronavirus NL63 (PCR) Not Detected (NotDetected) 03/19/23 12:08 Human Metapneumovir PCR Not Detected (NotDetected) 03/19/23 12:08 Influenza Type A (PCR) Not Detected (NotDetected) 03/19/23 12:08 Influenza Type B (PCR) Not Detected (NotDetected) 03/19/23 12:08 M. pneumoniae (PCR) Not Detected (NotDetected) 03/19/23 12:08 Parainfluenza 1 (PCR) Not Detected (NotDetected) 03/19/23 12:08 Parainfluenza 2 (PCR) Not Detected (NotDetected) 03/19/23 12:08 Parainfluenza 3 (PCR) Not Detected (NotDetected) 03/19/23 12:08 Parainfluenza 4 (PCR) Not Detected (NotDetected) 03/19/23 12:08 RSV (PCR) Not Detected (NotDetected) 03/19/23 12:08 Entero/Rhino (PCR) Not Detected (NotDetected) 03/19/23 12:08 AFB Specimen Processing Comment (.) 03/19/23 13:57 AFB Smear TNP 03/19/23 13:57 Blood Type O Negative 03/19/23 12:37 Blood Type Recheck O Negative 03/19/23 17:08 Antibody Screen NEGATIVE 03/19/23 12:37 Crossmatch See Detail 03/19/23 12:[address] 03/19/23 17:05 Exam(s): CT CHEST W/WO Contrast IV Amt: 90 ML OPTIRAY 320 EXAM: CT Chest Without and With Intravenous Contrast CLINICAL HISTORY: Reason for exam: cavitary lesions. TECHNIQUE: Axial computed tomography images of the chest without and with intravenous contrast. CTDI is 7.14 mGy and DLP is 458.79 mGy-cm. Automated exposure control was utilized for the study. A dose lowering technique was utilized adhering to the principles of ALARA. CONTRAST: Patient received 90 ML OPTIRAY 320 of IV contrast COMPARISON: February 12, 2023 CT. FINDINGS: There has been severe progression of consolidation in the left upper lobe and superior aspect of the left lower lobe. Extensive irregular cavitation has developed within the areas of consolidation. More diffuse infiltration without evaristo consolidation is seen in the basal aspect of the left lower lobe. The right lung is clear. Moderate sized left pleural effusion is stable. There is no evidence of pneumothorax. There appears to be left hilar and mild subcarinal lymphadenopathy. The left lower lobe pulmonary artery appears occluded but no focal filling defect is seen. IMPRESSION: Marked interval consolidation of the left upper lobe and superior aspect of the left lower lobe. Extensive cavitation has developed within the consolidation. This is associated with left hilar and subcarinal lymphadenopathy. This is nonspecific but very concerning for infection, particularly atypical infections including mycobacterial and fungal. Electronically signed by: Mino Swain MD 03/20/23 00:17 AM (3) Leukocytosis Leukocytosis type: unspecified Qualified Code(s): D72.829 - Elevated white blood cell count, unspecified
--- NOTE | 2023-03-20 14:40 | Gastrointestinal Consultation ---
Date of Consultation March 20, 2023 History of Present Illness Attending Physician: Narayan Underwood MD History of Present Illness 62 year old male that presented to the [facility] today after being referred by his Oncologist, Dr. Pierson for worsening leukocytosis. WBC 28k. Patient had blood work done today which showed leukocytosis of nearly 30. Chest x-ray reveals left-sided cavitary lesion. ED discussed with [facility] ID Dr. Santos. Patient had a chest CT done 10/2022 showing perihilar mass lesion measuring approximately 6 cm. At that time patient had a bronchoscopy done by Dr. Layton confirming his cancer diagnosis. AFB and culture were obtained during the [facility] which were negative. Per discussion with the ED infectious disease recommends an AFB culture and smear every 8 x24 hours and recommends initiation of vancomy miguel angel plus Zosyn. Patient is anemic and is been tranfused a unit . pulm consult requested he had seen Dr. Roe in OP consultation in Oct 2022 for consideration of Hep C tx. At that point he was recommended against tx as he was going to be on chemotherapy. Pt has finished chemo as above. Has not completed full Hep C w/u (needs genotyping, HIV, fibrosis eval, etc). He is neg for Hep B. Allergies Allergy/AdvReac Type Severity Reaction Status Date / Time No Known Allergies Allergy Verified 03/11/23 16:08 Home Medications Medication Instructions Recorded Confirmed Type albuterol sulfate 90 mcg/actuation 2 puff inhalation Q4 PRN Wheezing 10/29/22 03/19/23 History aerosol inhaler ipratropium 0.5 mg-albuterol 3 mg 3 ml inhalation QID PRN Wheezing 10/29/22 03/19/23 History (2.5 mg base)/3 mL nebulization soln tamsulosin 0.4 mg capsule 0.8 mg PO QAM 11/19/22 03/19/23 History docusate sodium 100 mg tablet 100 mg PO BID 12/24/22 03/19/23 History (Stool Softener) loratadine 10 mg tablet (Claritin) 10 mg PO QAM 12/24/22 03/19/23 History gatifloxacin 0.5 % eye drops 0 drp ophthalmic (eye) DAILY 03/19/23 03/19/23 History ibuprofen 200 mg tablet 200 mg PO TID PRN Pain 03/19/23 03/19/23 History ketorolac 0.5 % eye drops 0 drp ophthalmic (eye) DAILY 03/19/23 03/19/23 History prednisolone acetate 1 % eye 0 drp ophthalmic (eye) DAILY 03/19/23 03/19/23 History drops,suspension Patient History Medical History (Updated 03/20/23 @ 12:10 by Cassius Lee MD) BPH (benign prostatic hyperplasia) Cavitary pneumonia DM type 2 (diabetes mellitus, type 2) pt denies Ex-smoker Frequent urination ONGOING ISSUE Hepatitis C Active History of chest pain RECENT DX LUNG CA...TESTING...C/P SUSPECTED TO BE DUE TO TUMOR LOCATION AT LUNG ENTRY - WANTED TO PLACE A STENT/UNABLE TO STENT History of fracture of orbit HX RIGHT ORBITAL FX...SX/TITANIUM IMPLANT History of fractured vertebra History of influenza OCT 2022 History of recent hospitalization 02/2023 [facility] - MRSA bacteremia secondary to port infection, bilateral lobe pneumonia, MRSA cellulitis/radiation dermatitis of the left upper chest. History of vascular access device removed Lung cancer Dx'd 10/14/2022. CHEMO AND RADIATION (completed approx 1 mo ago per pt). [facility] for infusions q2wk. unable to recall name of infusion. Metastatic primary lung cancer Osteoporosis Ruptured intervertebral disc hx Weakness Surgical History H/O eye surgery 1996 H/O knee surgery 1999 History of bronchoscopy History of tonsillectomy and adenoidectomy 1972 Family History Brother Stomach cancer Grandfather (Maternal) Prostate cancer Grandfather (Paternal) Colon cancer Father Heart disease Grandfather Stroke Social History Smoking Status: Former smoker Tobacco Type: Cigarettes packs per day: 1.5; Second Hand Exposure: No; Do You Dip or Chew Tobacco: No; Hx Alcohol Use: No Hx Substance Use: No Preferred Language: Sinhala Communication Ability: Effective Visual Impairment: No Limitations Hearing Ability: Normal Gas Station Attendant Required: No Beliefs That Will Affect Care: None Current Living Situation: Significant Other 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 current occupational status: disabled Feels Safe at Home: Yes Safety Concerns: Feels Safe At This Time Diet: diabetic during the past year weight has: decreased > 10 lbs Assistive Devices: None Results & Data Vital Signs (Past 12 Hours) Vital Signs Temp Pulse Pulse Resp BP BP Pulse Ox 03/20/23 08:00 03/20/23 08:00 108 H 03/20/23 12:26 37.1 C 113 H 20 100/65 98 03/20/23 11:16 105 H 18 97 03/20/23 09:05 101 H 20 96 03/20/23 08:00 36.7 C 104 H 18 98/61 L 98 03/20/23 06:11 107 H 19 100 03/20/23 02:44 106 H 20 110/70 98 O2 Del Method O2 Flow Rate 03/20/23 08:00 Nasal Cannula 1.5 03/20/23 08:00 03/20/23 12:26 Nasal Cannula 1.5 03/20/23 11:16 Nasal Cannula 2 03/20/23 09:05 Nasal Cannula 2 03/20/23 08:00 Nasal Cannula 2 03/20/23 06:11 Nasal Cannula 2 03/20/23 02:44 Nasal Cannula 2
--- NOTE | 2023-03-20 14:43 | Communication Note ---
Date of Service: March 20, 2023 This is a 62 y/o male with history of stage III C squamous cell carcinoma currently on immune checkpoint inhibitor therapy, completed tx with Taxol/Carboplatin in January, now admitted with leukocytosis, anemia, extensive PNA/cavitary lung lesions. He is being w/u from a pulmonary/oncologic standpoint and infectious w/u is pending. He has a history of chronic hep C, dx'd at least since 1998, treatment naive. We were asked for recommendations/thoughts on his Hep C and getting him started on tx. He was seen by GI as OP in Oct 2022 for the same. At that time he was slated to go on chemo and so not recommended to start Hep C at that time. He has now completed chemo; is on ICI therapy. With regard to Hep C, his last viral load was [id number] on March 04, 2023. He was found to be not immune to Hep B and it was recommended he be vaccinated against that; he has not done that yet. He has not had full pre-treatment lab and work- up for his Hep C. Fortunately liver appears unremarkable by recent CT in February and his LFTs, INR and PLT are WNL, suggesting against advanced liver disease. Recommendations: - Would not start Hep C tx as inpt at this time. Pt needs to complete pre- treatment work-up prior to starting Hep C; this can be done as OP. - While inpt if feasible can check Hep C Genotype, Hep A IgM and IgG, and HIV - Pulmonology/oncology to determine tx for his PNA/lung cancer - Pt expressed interest in starting tx for Hep C - We will contact him to schedule OP office visit to discuss appropriate treatment for Hep C. Treatment is usually initiated by GI and is typically facilitated by our [facility] office who handles insurance approval, follow-up phone calls and labs, etc and this was explained to him - GI will sign off, please call with questions
[2023-03-20] MEDS: PIPERACILLIN/TAZOBACTAM 4.5 GM CI (over 4 hours) IV SCH (17:09)
[2023-03-20] MEDS: SODIUM CHLOR 7% 4 ML NEB NEB SCH (19:40)
[2023-03-20] MEDS: ACETAMINOPHEN 325 MG TAB PO PRN (21:59)
[2023-03-21] MEDS: PIPERACILLIN/TAZOBACTAM 4.5 GM CI (over 4 hours) IV SCH ×3 (00:33→18:23)
[2023-03-21] MEDS ORDERED: VANCOMYCIN LEVEL ONE (05:00)
[2023-03-21 05:51] LABS: Hematocrit (blood only) 24.2 % (42.0-52.0); Hemoglobin 7.6 g/dl (14.0-18.0); Mean Corpuscular Hemoglobin 26.6 pg (25.0-34.0); Mean Corpuscular Hgb Conc 31.4 g/dL (32.0-36.0); Mean Corpuscular Volume 84.6 fL (80.0-100.0); Mean Platelet Volume 10.2 fL (9.4-12.4); Platelet Count 296 K/uL (130-400); RDW Coefficient of Variation 17.6 % (11.5-14.5); RDW Standard Deviation 54.4 fL (36.4-46.3); Red Blood Count 2.86 M/uL (4.70-6.10); White Blood Count 18.65 K/ul (4.8-10.8)
[2023-03-21 06:02] LABS: BUN Creatinine Ratio 29.4 (10-20); Calcium 7.6 mg/dl (8.6-10.3); Creatinine Clr Calc Pharmacy 129.6 ml/min; Est GFR (African American) 133.5 ml/min; Est GFR (Non-African American) 115.2 ml/min; Potassium 3.6 mmol/L (3.5-5.1)
[2023-03-21] MEDS: VANCOMYCIN HCL 1,250 MG in SODIUM CHLORIDE 0.9% 250 ML IV SCH ×3 (06:08→22:16)
--- NOTE | 2023-03-21 06:15 | Pharmacy Report ---
Pharmacy PK ABX Note - Date of Service March 21, 2023 - Assessment and Plan Assessment 62 year old M receiving Vancomycin and Zosyn for treatment of pulmonary infection. * Day #3 of antimicrobial therapy. * Afebrile. Leukocytosis improving. Renal fxn stable. * Trough level this AM at goal. However, it is expected to be supratherapeutic at steady state per AUC/EFRA calculation software. We have previous patient specific kinetic information on this current regimen which resulted in therapeutic levels. Therefore, will continue with more aggressive regimen today and check a trough tomorrow. Plan Vancomycin * Current regimen: 1250 mg IV every 8 hours * Trough level obtained 03/21/23 resulted as 13.9 mcg/mL. This is predicted to achieve target AUC/EFRA of 400-600 mg/L.hr * Predicted AUC at steady state: 642 mg/L.hr which is supratherapeutic. See rationale for decision above. * Continue 1250 mg IV every 8 hours * Repeat trough level ordered for: 03/22/23 Pharmacy will continue to follow and will adjust dose/frequency as necessary. Thank you. Pharmacy has transitioned to AUC monitoring for vancomycin. AUC/EFRA is the preferred PK/PD target and is associated with decreased risk of nephrotoxicity compared to traditional trough targets.
[2023-03-21 06:53] LABS: Basophils # (auto) 0.06 K/uL (0-0.2); Basophils % (auto) 0.3 %; Eosinophils # (auto) 0.07 K/uL (0-0.50); Eosinophils % (auto) 0.4 %; Immature Granulocytes # (auto) 0.17 K/uL (0.01-0.20); Immature Granulocytes % (auto) 0.9 %; Lymphocytes # (auto) 0.34 K/uL (1.2-3.4); Lymphocytes % (auto) 1.8 %; Monocytes # (auto) 0.96 K/uL (0.11-0.59); Monocytes % (auto) 5.1 %; Neutrophils # (auto) 17.05 K/uL (1.40-6.50); Neutrophils % (auto) 91.5 %; Polychromasia 1+
[2023-03-21] MEDS: SODIUM CHLOR 7% 4 ML NEB NEB SCH ×2 (07:03→19:45)
[2023-03-21] MEDS: ALBUT/IPRATROP 3MG/0.5MG NEB 3 ML VIAL NEB SCH ×4 (07:03→19:45)
[2023-03-21] MEDS: FOLIC ACID 1 MG in SYRINGE 9.8 ML IV SCH (08:03)
[2023-03-21] MEDS: TAMSULOSIN HCL 0.4 MG CAP PO SCH (08:04)
[2023-03-21] MEDS: DOCUSATE SODIUM 100 MG CAP PO SCH ×2 (08:04→19:42)
[2023-03-21] MEDS: HEPARIN SOD 5,000 UNIT/0.5 ML VIAL SQ SCH ×2 (08:04→21:18)
[2023-03-21] MEDS: ADVANCED PROBIOTIC 1250 MG CAPSULE PO SCH (08:06)
[2023-03-21] MEDS ORDERED: ALUMINUM/MAGNESIUM/SIMETH (MAALOX MAX) 30 ML UDC PO STA (10:59)
--- NOTE | 2023-03-21 11:36 | Hospitalist Progress Note ---
Date of Service March 21, 2023 Assessment & Plan (1) Squamous cell carcinoma of left lung: (2) Weight loss: (3) Leukocytosis: (4) Weakness: (5) BPH (benign prostatic hyperplasia): Plan 62 year old with SCC left lung; follows Dr. Pierson. Presents by recommendation of Dr. Aleman for worsening leukocytosis. Dx SCC left lung 10/[address] Layton. Imaging today suggestive of cavitary lesions. AF culture Q8 x24 hours. Vanco + Zosyn per ID. 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 Extensive cavitation within the consultation. Labs reviewed; leukocytosis improved from 28,00 to 18,000 Gram stain of the sputum shows rare gram-positive bacilli, gram-positive cocci and gram-negative bacilli. Culture shows normal christopher. EKG reviewed personally; sinus tachycardia; no other abnormality seen. AFB sputum smear culture sent. Will await results. Continue on Vanco and Zosyn. Obtain MRSA nares Appreciate pulmonology and oncology's input. Discussed with GI; work-up for hepatitis C and subsequent treatment to be done as outpatient Continue airway clearance therapy with flutter valve. Hypertonic saline nebs. Await infectious disease input. Symptomatic Anemia status post 1 unit of RBC transfusion Hemoglobin stable presently. Continue to monitor. Diarrhea: Occuring x 48 hours Likely side effect of his chemo tx GI PCR panel negative BPH: Takes tamsulosin; continue Disposition: PCP: Dr. Genao CODE STATUS: Full code VTE prophylaxis: Teds and SCDs for now + Heparin SQ Time spent evaluating patient, direct bedside care, chart review, placing orders, interpretation of diagnostic studies, discussion with consultants, patient, and family members, as well as other required patient management activities is 60 minutes Please note the above document was generated using voice recognition software. It may contain grammatical, syntax or spelling errors. Any formal questions or concerns about the content, text or information contained within the body of this dictation should be directly addressed to the provider for clarification Admission and Anticipated Discharge Date Admission Date: March 19, 2023 Subjective Patient seen and examined at bedside. He is lying in the bed comfortably; reports cough with sputum production. Not in respiratory distress; saturating well with nasal cannula at 1 L/min Review of Systems Review of Systems: All systems reviewed & are unremarkable except as noted in Subjective Physical Exam Physical Exam: Constitutional: WD/WN, vitals as above, NAD, sitting up in bed, pleasant, conversing easily Neck: trachea midline, no thyromegaly normal visual inspection Respiratory: Decreased breath sound on left upper lung field. Cardiovascular: RRR, no murmur, no edema Vessels: no JVD or carotid bruit Chest: normal inspection of chest Abdomen: normal bowel sounds, soft, nontender, no hepatosplenomegaly Musculoskeletal: no cyanosis or clubbing, extremities motor strength 5/5 Skin: no rashes, warm and dry normal turgor Neurologic: PERRL, EOMI, accommodation nl, no face palsy, no dysarthria CN's II- XI intact bilaterally and moves all extremities Results & Data Results & Data Vital Signs (Past 12 Hours) Vital Signs Temp Pulse Pulse Resp BP Pulse Ox O2 Del Method 03/21/23 11:07 112 H 18 98 Nasal Cannula 03/21/23 11:02 105 H 03/21/23 08:00 Nasal Cannula 03/21/23 07:04 100 H 18 98 Nasal Cannula 03/21/23 03:07 36.5 C 98 H 18 106/70 99 Nasal Cannula 03/21/23 00:15 115 H O2 Flow Rate 03/21/23 11:07 1 03/21/23 11:02 03/21/23 08:00 2 03/21/23 07:04 2 03/21/23 03:07 2 03/21/23 00:15 Laboratory Results Laboratory Results WBC 18.65 K/ul (4.8-10.8) H 03/21/23 05:28 RBC 2.86 M/uL (4.70-6.10) L 03/21/23 05:28 Hgb 7.6 g/dl (14.0-18.0) L 03/21/23 05:28 POC Hgb 6.1 g/dl (14.0-18.0) L* 03/19/23 13:53 Hct 24.2 % (42.0-52.0) L 03/21/23 05:28 POC Hct 18 % (42-52) L* 03/19/23 13:53 MCV 84.6 fL (80.0-100.0) 03/21/23 05:28 MCH 26.6 pg (25.0-34.0) 03/21/23 05:28 MCHC 31.4 g/dL (32.0-36.0) L 03/21/23 05:28 RDW Std Deviation 54.4 fL (36.4-46.3) H 03/21/23 05:28 RDW Coeff of Mathieu 17.6 % (11.5-14.5) H 03/21/23 05:28 Plt Count 296 K/uL (130-400) 03/21/23 05:28 MPV 10.2 fL (9.4-12.4) 03/21/23 05:28 Immature Gran % (Auto) 0.9 % 03/21/23 05:28 Neut % (Auto) 91.5 % 03/21/23 05:28 Lymph % (Auto) 1.8 % 03/21/23 05:28 Bartholomew % (Auto) 5.1 % 03/21/23 05:28 Eos % (Auto) 0.4 % 03/21/23 05:28 Baso % (Auto) 0.3 % 03/21/23 05:28 Neut # (Auto) 17.05 K/uL (1.40-6.50) H 03/21/23 05:28 Lymph # (Auto) 0.34 K/uL (1.2-3.4) L 03/21/23 05:28 Bartholomew # (Auto) 0.96 K/uL (0.11-0.59) H 03/21/23 05:28 Eos # (Auto) 0.07 K/uL (0-0.50) 03/21/23 05:28 Baso # (Auto) 0.06 K/uL (0-0.2) 03/21/23 05:28 Immature Gran # (Auto) 0.17 K/uL (0.01-0.20) 03/21/23 05:28 Polychromasia 1+ 03/21/23 05:28 Hypochromasia Present 03/19/23 11:55 PT 12.0 Seconds (9.0-12.0) 03/19/23 11:55 INR 1.1 (0.9-1.1) 03/19/23 11:55 APTT 26.6 Seconds (21.0-31.0) 03/19/23 11:55 PTT Ratio 0.9 03/19/23 11:55 ABG pH 7.49 (7.35-7.45) H 03/19/23 12:54 ABG pCO2 27 mmHg (35-46) L 03/19/23 12:54 ABG pO2 91 mmHg (80-95) 03/19/23 12:54 ABG HCO3 21 mmol/L (19-24) 03/19/23 12:54 ABG O2 Saturation 99.3 % (90-95) H 03/19/23 12:54 ABG Base Excess -1.4 mEq/L (-9-1.8) 03/19/23 12:54 Keon Test Pos (Pos) 03/19/23 12:54 Oxygen Given ROOM AIR 03/19/23 12:54 POC Sodium 132 mmol/L (135-144) L 03/19/23 13:53 Sodium 131 mmol/L (136-145) L 03/21/23 05:28 POC Potassium 3.0 mmol/L (3.3-5.0) L 03/19/23 13:53 Potassium 3.6 mmol/L (3.5-5.1) 03/21/23 05:28 POC Chloride 100 mmol/L (101-112) L 03/19/23 13:53 Chloride 103 mmol/L (98-107) 03/21/23 05:28 Carbon Dioxide 22 mmol/L (21-32) 03/21/23 05:28 POC Total CO2 20 mmol/L (24-31) L 03/19/23 13:53 Anion Gap 6 (3-11) 03/21/23 05:28 POC Anion Gap 17.0 mmol/L (16-25) 03/19/23 13:53 POC BUN 19 mg/dl (7-18) H 03/19/23 13:53 BUN 15 mg/dl (6-23) 03/21/23 05:28 Creatinine 0.51 mg/dl (0.6-1.4) L 03/21/23 05:28 POC Creatinine 0.5 mg/dl (0.6-1.3) L 03/19/23 13:53 Est Cr Clr Drug Dosing 129.6 ml/min 03/21/23 05:28 Est GFR ( Amer) 133.5 ml/min 03/21/23 05:28 Est GFR (Non-Af Amer) 115.2 ml/min 03/21/23 05:28 BUN/Creatinine Ratio 29.4 (10-20) H 03/21/23 05:28 Glucose 137 mg/dl (70-99(Fasting)) H 03/21/23 05:28 POC Glucose (other) 108 mg/dl (70-99) H 03/19/23 13:53 Lactate 1.4 mmol/L (0.4-2.0) 03/19/23 12:53 Calcium 7.6 mg/dl (8.6-10.3) L 03/21/23 05:28 POC Ioniz Calcium Antonio 1.05 mmol/l (1.12-1.32) L 03/19/23 13:53 Magnesium 1.6 mg/dl (1.7-2.4) L 03/20/23 10:23 Total Bilirubin 0.6 mg/dl (0.2-1.0) 03/20/23 10:23 Direct Bilirubin 0.2 mg/dl (0-0.2) 03/19/23 11:55 AST 38 U/L (13-39) 03/20/23 10:23 ALT 45 U/L (7-52) 03/20/23 10:23 Alkaline Phosphatase 90 U/L (34-104) 03/20/23 10:23 Troponin I High Sens 19.3 pg/ml (0-20) 03/19/23 11:55 Total Protein 5.0 gm/dl (6.0-8.3) L D 03/20/23 10:23 Albumin 2.2 gm/dl (3.4-5.0) L 03/20/23 10:23 Globulin 2.8 gm/dl (2.5-4.0) 03/20/23 10:23 Albumin/Globulin Ratio 0.8 (0.9-2) L 03/20/23 10:23 Procalcitonin 1.07 ng/ml (0-0.5) H 03/19/23 11:55 Urine Color Dark Yellow 03/19/23 Unknown Urine Appearance Clear (Clear) 03/19/23 Unknown Urine pH 5.5 (4.5-7.5) 03/19/23 Unknown Ur Specific [place] 1.031 (1.000-1.030) H 03/19/23 Unknown Urine Protein 1+ (Negative) H 03/19/23 Unknown Urine Glucose (UA) Negative (Negative) 03/19/23 Unknown Urine Ketones Trace (Negative) H 03/19/23 Unknown Urine Blood Negative (Negative) 03/19/23 Unknown Urine Nitrite Negative (Negative) 03/19/23 Unknown Urine Bilirubin Negative (Negative) 03/19/23 Unknown Urine Urobilinogen Positive (Negative) H 03/19/23 Unknown Ur Leukocyte Esterase Negative (Negative) 03/19/23 Unknown Urine WBC (Auto) 1-5 /hpf (0-5) 03/19/23 Unknown Urine RBC (Auto) 0-4 /hpf (0-4) 03/19/23 Unknown U Hyaline Cast (Auto) 1-5 /lpf (0-5) 03/19/23 Unknown U Epithel Cells (Auto) 10-20 /lpf (0-5) H 03/19/23 Unknown Urine Bacteria (Auto) Negative (Negative) 03/19/23 Unknown Stl C. cayetanensis PCR Not Detected (NotDetected) 03/20/23 02:40 Stool Rotavirus A PCR Not Detected (NotDetected) 03/20/23 02:40 Stl Adenov F 40/41 PCR Not Detected (NotDetected) 03/20/23 02:40 Stool Astrovirus (PCR) Not Detected (NotDetected) 03/20/23 02:40 Stool Campylobacter PCR Not Detected (NotDetected) 03/20/23 02:40 Stl C. diff Tox B Gene Negative Cdiff Gene (Neg) 03/20/23 02:40 Stool Cryptosporidium PCR Not Detected (NotDetected) 03/20/23 02:40 Stl E.coli Shiga Tox PCR Not Detected (NotDetected) 03/20/23 02:40 Stl Enterotoxigenic E PCR Not Detected (NotDetected) 03/20/23 02:40 Stool EPEC (PCR) Not Detected (NotDetected) 03/20/23 02:40 Stool EAEC (PCR) Not Detected (NotDetected) 03/20/23 02:40 Stl E. histolytica PCR Not Detected (NotDetected) 03/20/23 02:40 Stool Giardia Lamblia PCR Not Detected (NotDetected) 03/20/23 02:40 Stool Salmonella PCR Not Detected (NotDetected) 03/20/23 02:40 Stool Sapovirus (PCR) Not Detected (NotDetected) 03/20/23 02:40 Stl P. shigelloides PCR Not Detected (NotDetected) 03/20/23 02:40 Stl Shigella/EIEC PCR Not Detected (NotDetected) 03/20/23 02:40 St Y.enterocolitica PCR Not Detected (NotDetected) 03/20/23 02:40 Stool Vibrio (PCR) Not Detected (NotDetected) 03/20/23 02:40 Stl Vibrio cholerae PCR Not Detected (NotDetected) 03/20/23 02:40 Stl Norovirus GI/GII PCR Not Detected (NotDetected) 03/20/23 02:40 Random Vancomycin 13.9 mcg/ml (10-20) 03/21/23 05:28 Adenovirus (PCR) Not Detected (NotDetected) 03/19/23 12:08 B. pertussis DNA (PCR) Not Detected (NotDetected) 03/19/23 12:08 B.parapertussis DNA PCR Not Detected (NotDetected) 03/19/23 12:08 C. pneumoniae DNA (PCR) Not Detected (NotDetected) 03/19/23 12:08 Coronavirus OC43 (PCR) Not Detected (NotDetected) 03/19/23 12:08 Coronavirus HKU1 (PCR) Not Detected (NotDetected) 03/19/23 12:08 Coronavirus 229E (PCR) Not Detected (NotDetected) 03/19/23 12:08 SARS-CoV-2 (PCR) Not Detected (NotDetected) 03/19/23 12:08 Coronavirus NL63 (PCR) Not Detected (NotDetected) 03/19/23 12:08 Human Metapneumovir PCR Not Detected (NotDetected) 03/19/23 12:08 Influenza Type A (PCR) Not Detected (NotDetected) 03/19/23 12:08 Influenza Type B (PCR) Not Detected (NotDetected) 03/19/23 12:08 M. pneumoniae (PCR) Not Detected (NotDetected) 03/19/23 12:08 Parainfluenza 1 (PCR) Not Detected (NotDetected) 03/19/23 12:08 Parainfluenza 2 (PCR) Not Detected (NotDetected) 03/19/23 12:08 Parainfluenza 3 (PCR) Not Detected (NotDetected) 03/19/23 12:08 Parainfluenza 4 (PCR) Not Detected (NotDetected) 03/19/23 12:08 RSV (PCR) Not Detected (NotDetected) 03/19/23 12:08 Entero/Rhino (PCR) Not Detected (NotDetected) 03/19/23 12:08 AFB Specimen Processing Comment (.) 03/19/23 13:57 AFB Smear TNP 03/19/23 13:57 Blood Type O Negative 03/19/23 12:37 Blood Type Recheck O Negative 03/19/23 17:08 Antibody Screen NEGATIVE 03/19/23 12:37 Crossmatch See Detail 03/19/23 12:[address] 03/19/23 17:05 Exam(s): CT CHEST W/WO Contrast IV Amt: 90 ML OPTIRAY 320 EXAM: CT Chest Without and With Intravenous Contrast CLINICAL HISTORY: Reason for exam: cavitary lesions. TECHNIQUE: Axial computed tomography images of the chest without and with intravenous contrast. CTDI is 7.14 mGy and DLP is 458.79 mGy-cm. Automated exposure control was utilized for the study. A dose lowering technique was utilized adhering to the principles of ALARA. CONTRAST: Patient received 90 ML OPTIRAY 320 of IV contrast COMPARISON: February 12, 2023 CT. FINDINGS: There has been severe progression of consolidation in the left upper lobe and superior aspect of the left lower lobe. Extensive irregular cavitation has developed within the areas of consolidation. More diffuse infiltration without evaristo consolidation is seen in the basal aspect of the left lower lobe. The right lung is clear. Moderate sized left pleural effusion is stable. There is no evidence of pneumothorax. There appears to be left hilar and mild subcarinal lymphadenopathy. The left lower lobe pulmonary artery appears occluded but no focal filling defect is seen. IMPRESSION: Marked interval consolidation of the left upper lobe and superior aspect of the left lower lobe. Extensive cavitation has developed within the consolidation. This is associated with left hilar and subcarinal lymphadenopathy. This is nonspecific but very concerning for infection, particularly atypical infections including mycobacterial and fungal. Electronically signed by: Mino Swain MD 03/20/23 00:17 AM (3) Leukocytosis Leukocytosis type: unspecified Qualified Code(s): D72.829 - Elevated white blood cell count, unspecified
[2023-03-21] MEDS: ACETAMINOPHEN 325 MG TAB PO PRN ×2 (11:47→21:26)
--- NOTE | 2023-03-21 22:05 | Electrocardiogram Report ---
Test Reason : Blood Pressure : / mmHG Vent. Rate : 113 BPM Atrial Rate : 113 BPM P-R Int : 114 ms QRS Dur : 084 ms QT Int : 328 ms P-R-T Axes : 078 082 077 degrees QTc Int : 449 ms Sinus tachycardia Otherwise normal ECG When compared with ECG of 11-FEB-2023 21:17, Premature atrial complexes are no longer Present Confirmed by Jakub Brenner ([id number]) on 03/21/2023 10:05:05 PM Referred By: Confirmed By:Jakub Brenner
[2023-03-22] MEDS: PIPERACILLIN/TAZOBACTAM 4.5 GM CI (over 4 hours) IV SCH ×4 (01:03→23:40)
[2023-03-22] MEDS: ACETAMINOPHEN 325 MG TAB PO PRN ×2 (04:45→19:12)
[2023-03-22] MEDS ORDERED: VANCOMYCIN LEVEL ONE (05:30)
[2023-03-22] MEDS: VANCOMYCIN HCL 1,250 MG in SODIUM CHLORIDE 0.9% 250 ML IV SCH (05:43)
[2023-03-22 05:52] LABS: Basophils # (auto) 0.06 K/uL (0-0.2); Basophils % (auto) 0.4 %; Eosinophils # (auto) 0.06 K/uL (0-0.50); Eosinophils % (auto) 0.4 %; Hematocrit (blood only) 24.8 % (42.0-52.0); Hemoglobin 7.6 g/dl (14.0-18.0); Immature Granulocytes # (auto) 0.12 K/uL (0.01-0.20); Immature Granulocytes % (auto) 0.9 %; Lymphocytes # (auto) 0.36 K/uL (1.2-3.4); Lymphocytes % (auto) 2.7 %; Mean Corpuscular Hemoglobin 26.1 pg (25.0-34.0); Mean Corpuscular Hgb Conc 30.6 g/dL (32.0-36.0); Mean Corpuscular Volume 85.2 fL (80.0-100.0); Mean Platelet Volume 10.2 fL (9.4-12.4); Monocytes # (auto) 0.95 K/uL (0.11-0.59); Monocytes % (auto) 7.1 %; Neutrophils # (auto) 11.88 K/uL (1.40-6.50); Neutrophils % (auto) 88.5 %; Platelet Count 287 K/uL (130-400); RDW Coefficient of Variation 17.6 % (11.5-14.5); RDW Standard Deviation 54.8 fL (36.4-46.3); Red Blood Count 2.91 M/uL (4.70-6.10); White Blood Count 13.43 K/ul (4.8-10.8)
[2023-03-22 06:14] LABS: BUN Creatinine Ratio 17.3 (10-20); Calcium 7.8 mg/dl (8.6-10.3); Creatinine Clr Calc Pharmacy 85.3 ml/min; Est GFR (African American) 110.4 ml/min; Est GFR (Non-African American) 95.3 ml/min; Potassium 3.7 mmol/L (3.5-5.1)
[2023-03-22 06:17] LABS: Anisocytosis Present; Echinocytes 1+
[2023-03-22] MEDS: SODIUM CHLOR 7% 4 ML NEB NEB SCH ×2 (07:42→19:32)
[2023-03-22] MEDS: ALBUT/IPRATROP 3MG/0.5MG NEB 3 ML VIAL NEB SCH ×4 (07:42→19:32)
--- NOTE | 2023-03-22 09:48 | Pharmacy Report ---
Pharmacy PK ABX Note - Date of Service March 22, 2023 - Assessment and Plan Assessment 03/22: * Day #4 of antimicrobial therapy * Leukocytosis improving, SCr slightly increased this morning although it does appear within his normal fluctuation- will monitor * Trough level this AM therapeutic although predicting a supratherapeutic AUC/EFRA per calculation software. * Will slightly reduce dose today down to 1000 mg q8, recheck trough tomorrow AM, may require further reduction. 03/21 62 year old M receiving Vancomycin and Zosyn for treatment of pulmonary infection. * Day #3 of antimicrobial therapy. * Afebrile. Leukocytosis improving. Renal fxn stable. * Trough level this AM at goal. However, it is expected to be supratherapeutic at steady state per AUC/EFRA calculation software. We have previous patient specific kinetic information on this current regimen which resulted in therapeutic levels. Therefore, will continue with more aggressive regimen today and check a trough tomorrow. Plan Vancomycin * Current regimen: 1250 mg IV every 8 hours * Trough level obtained 03/22/23 resulted as 20.5 mcg/mL. * Predicted AUC at steady state: >600 mg/L.hr which is supratherapeutic. Will reduce dose today. * Continue 1000 mg IV every 8 hours * Repeat trough level ordered for: 03/23/23 Pharmacy will continue to follow and will adjust dose/frequency as necessary. Thank you. Pharmacy has transitioned to AUC monitoring for vancomycin. AUC/EFRA is the preferred PK/PD target and is associated with decreased risk of nephrotoxicity compared to traditional trough targets.
[2023-03-22] MEDS: TAMSULOSIN HCL 0.4 MG CAP PO SCH (09:49)
[2023-03-22] MEDS: FOLIC ACID 1 MG in SYRINGE 9.8 ML IV SCH (09:49)
[2023-03-22] MEDS: HEPARIN SOD 5,000 UNIT/0.5 ML VIAL SQ SCH ×2 (09:49→19:14)
[2023-03-22] MEDS: DOCUSATE SODIUM 100 MG CAP PO SCH ×2 (09:49→19:11)
[2023-03-22] MEDS: ADVANCED PROBIOTIC 1250 MG CAPSULE PO SCH (09:49)
--- NOTE | 2023-03-22 10:10 | XRay Report ---
XR chest 1V portable CLINICAL HISTORY: Follow up on left side infiltrates TECHNIQUE: Single frontal radiograph of the chest was obtained. Comparison: Comparison is made to chest radiograph 03/19/2023 FINDINGS: No lines and tubes are seen. The cardiomediastinal silhouette is obscured. Interval worsening of left -sided airspace opacities with cystic foci in the upper lung and increased lower lung opacities. Smal l to moderate left pleural effusion is seen. IMPRESSION: Interval worsening of left sided airspace opacities. Cystic lesions are again seen in the upper lungs . There is a likely left pleural effusion. ACT 112: Negative or not required by law. Electronically signed by: Pj Harris M.D. 03/22/2023 10:08 AM
--- NOTE | 2023-03-22 12:10 | Hospitalist Progress Note ---
Date of Service March 22, 2023 Assessment & Plan (1) Squamous cell carcinoma of left lung: (2) Weight loss: (3) Leukocytosis: (4) Weakness: (5) BPH (benign prostatic hyperplasia): Plan 62 year old with SCC left lung; follows Dr. Pierson. Presents by recommendation of Dr. Aleman for worsening leukocytosis. Dx SCC left lung 10/[address] Layton. Imaging today suggestive of cavitary lesions. AF culture Q8 x24 hours. Vanco + Zosyn per ID. 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 Extensive cavitation within the consultation. Labs reviewed; leukocytosis improved from 28,00 to 13,000 Gram stain of the sputum shows rare gram-positive bacilli, gram-positive cocci and gram-negative bacilli. Culture shows normal christopher. EKG reviewed personally; sinus tachycardia; no other abnormality seen. AFP smear negative Continue on Vanco and Zosyn. MRSA nares positive Urine histoplasma sent, beta D glucan sent as well as PJp PCR Awaiting infectious disease input Repeat chest x-ray today shows increased in left-sided infiltrate; informed pulmonology; awaiting recommendation. Discussed with GI; work-up for hepatitis C and subsequent treatment to be done as outpatient Continue airway clearance therapy with flutter valve. Hypertonic saline nebs. Symptomatic Anemia status post 1 unit of RBC transfusion Hemoglobin stable presently. Continue to monitor. Diarrhea: Occuring x 48 hours Likely side effect of his chemo tx GI PCR panel negative BPH: Takes tamsulosin; continue Disposition: PCP: Dr. Genao CODE STATUS: Full code VTE prophylaxis: Teds and SCDs for now + Heparin SQ Time spent evaluating patient, direct bedside care, chart review, placing orders, interpretation of diagnostic studies, discussion with consultants, patient, and family members, as well as other required patient management activities is 60 minutes Please note the above document was generated using voice recognition software. It may contain grammatical, syntax or spelling errors. Any formal questions or concerns about the content, text or information contained within the body of this dictation should be directly addressed to the provider for clarification Admission and Anticipated Discharge Date Admission Date: March 19, 2023 Subjective Patient seen and examined at bedside. He continues to have significant sputum production. Reports that his breathing is overall improved. Saturating well in room air Afebrile. Review of Systems Review of Systems: All systems reviewed & are unremarkable except as noted in Subjective Physical Exam Physical Exam: Constitutional: WD/WN, vitals as above, NAD, sitting up in bed, pleasant, conversing easily Neck: trachea midline, no thyromegaly normal visual inspection Respiratory: Decreased breath sound on left lung field. Cardiovascular: RRR, no murmur, no edema Vessels: no JVD or carotid bruit Chest: normal inspection of chest Abdomen: normal bowel sounds, soft, nontender, no hepatosplenomegaly Musculoskeletal: no cyanosis or clubbing, extremities motor strength 5/5 Skin: no rashes, warm and dry normal turgor Neurologic: PERRL, EOMI, accommodation nl, no face palsy, no dysarthria CN's II- XI intact bilaterally and moves all extremities Results & Data Results & Data Vital Signs (Past 12 Hours) Vital Signs Temp Pulse Pulse Resp BP BP Pulse Ox 03/22/23 11:48 36.5 C 95 H 18 110/72 96 03/22/23 11:40 98 H 20 92 03/22/23 10:10 104 H 03/22/23 09:00 03/22/23 08:39 36.6 C 112 H 18 100/63 96 03/22/23 07:43 102 H 20 92 03/22/23 00:42 115 H O2 Del Method O2 Flow Rate 03/22/23 11:48 Room Air 03/22/23 11:40 Nasal Cannula 1 03/22/23 10:10 03/22/23 09:00 Room Air 03/22/23 08:39 Room Air 03/22/23 07:43 Room Air 03/22/23 00:42 Laboratory Results Laboratory Results WBC 13.43 K/ul (4.8-10.8) H 03/22/23 05:17 RBC 2.91 M/uL (4.70-6.10) L 03/22/23 05:17 Hgb 7.6 g/dl (14.0-18.0) L 03/22/23 05:17 POC Hgb 6.1 g/dl (14.0-18.0) L* 03/19/23 13:53 Hct 24.8 % (42.0-52.0) L 03/22/23 05:17 POC Hct 18 % (42-52) L* 03/19/23 13:53 MCV 85.2 fL (80.0-100.0) 03/22/23 05:17 MCH 26.1 pg (25.0-34.0) 03/22/23 05:17 MCHC 30.6 g/dL (32.0-36.0) L 03/22/23 05:17 RDW Std Deviation 54.8 fL (36.4-46.3) H 03/22/23 05:17 RDW Coeff of Mathieu 17.6 % (11.5-14.5) H 03/22/23 05:17 Plt Count 287 K/uL (130-400) 03/22/23 05:17 MPV 10.2 fL (9.4-12.4) 03/22/23 05:17 Immature Gran % (Auto) 0.9 % 03/22/23 05:17 Neut % (Auto) 88.5 % 03/22/23 05:17 Lymph % (Auto) 2.7 % 03/22/23 05:17 [place] % (Auto) 7.1 % 03/22/23 05:17 Eos % (Auto) 0.4 % 03/22/23 05:17 Baso % (Auto) 0.4 % 03/22/23 05:17 Neut # (Auto) 11.88 K/uL (1.40-6.50) H 03/22/23 05:17 Lymph # (Auto) 0.36 K/uL (1.2-3.4) L 03/22/23 05:17 [place] # (Auto) 0.95 K/uL (0.11-0.59) H 03/22/23 05:17 Eos # (Auto) 0.06 K/uL (0-0.50) 03/22/23 05:17 Baso # (Auto) 0.06 K/uL (0-0.2) 03/22/23 05:17 Immature Gran # (Auto) 0.12 K/uL (0.01-0.20) 03/22/23 05:17 Polychromasia 1+ 03/21/23 05:28 Hypochromasia Present 03/19/23 11:55 Anisocytosis Present 03/22/23 05:17 Echinocytes 1+ 03/22/23 05:17 PT 12.0 Seconds (9.0-12.0) 03/19/23 11:55 INR 1.1 (0.9-1.1) 03/19/23 11:55 APTT 26.6 Seconds (21.0-31.0) 03/19/23 11:55 PTT Ratio 0.9 03/19/23 11:55 ABG pH 7.49 (7.35-7.45) H 03/19/23 12:54 ABG pCO2 27 mmHg (35-46) L 03/19/23 12:54 ABG pO2 91 mmHg (80-95) 03/19/23 12:54 ABG HCO3 21 mmol/L (19-24) 03/19/23 12:54 ABG O2 Saturation 99.3 % (90-95) H 03/19/23 12:54 ABG Base Excess -1.4 mEq/L (-9-1.8) 03/19/23 12:54 [place] Test Pos (Pos) 03/19/23 12:54 Oxygen Given ROOM AIR 03/19/23 12:54 POC Sodium 132 mmol/L (135-144) L 03/19/23 13:53 Sodium 133 mmol/L (136-145) L 03/22/23 05:17 POC Potassium 3.0 mmol/L (3.3-5.0) L 03/19/23 13:53 Potassium 3.7 mmol/L (3.5-5.1) 03/22/23 05:17 POC Chloride 100 mmol/L (101-112) L 03/19/23 13:53 Chloride 103 mmol/L (98-107) 03/22/23 05:17 Carbon Dioxide 25 mmol/L (21-32) 03/22/23 05:17 POC Total CO2 20 mmol/L (24-31) L 03/19/23 13:53 Anion Gap 5 (3-11) 03/22/23 05:17 POC Anion Gap 17.0 mmol/L (16-25) 03/19/23 13:53 POC BUN 19 mg/dl (7-18) H 03/19/23 13:53 BUN 14 mg/dl (6-23) 03/22/23 05:17 Creatinine 0.81 mg/dl (0.6-1.4) D 03/22/23 05:17 POC Creatinine 0.5 mg/dl (0.6-1.3) L 03/19/23 13:53 Est Cr Clr Drug Dosing 85.3 ml/min 03/22/23 05:17 Est GFR ( Amer) 110.4 ml/min 03/22/23 05:17 Est GFR (Non-Af Amer) 95.3 ml/min 03/22/23 05:17 BUN/Creatinine Ratio 17.3 (10-20) 03/22/23 05:17 Glucose 105 mg/dl (70-99(Fasting)) H 03/22/23 05:17 POC Glucose (other) 108 mg/dl (70-99) H 03/19/23 13:53 Lactate 1.4 mmol/L (0.4-2.0) 03/19/23 12:53 Calcium 7.8 mg/dl (8.6-10.3) L 03/22/23 05:17 POC Ioniz Calcium Antonio 1.05 mmol/l (1.12-1.32) L 03/19/23 13:53 Magnesium 1.6 mg/dl (1.7-2.4) L 03/20/23 10:23 Total Bilirubin 0.6 mg/dl (0.2-1.0) 03/20/23 10:23 Direct Bilirubin 0.2 mg/dl (0-0.2) 03/19/23 11:55 AST 38 U/L (13-39) 03/20/23 10:23 ALT 45 U/L (7-52) 03/20/23 10:23 Alkaline Phosphatase 90 U/L (34-104) 03/20/23 10:23 Troponin I High Sens 19.3 pg/ml (0-20) 03/19/23 11:55 Total Protein 5.0 gm/dl (6.0-8.3) L D 03/20/23 10:23 Albumin 2.2 gm/dl (3.4-5.0) L 03/20/23 10:23 Globulin 2.8 gm/dl (2.5-4.0) 03/20/23 10:23 Albumin/Globulin Ratio 0.8 (0.9-2) L 03/20/23 10:23 Procalcitonin 1.07 ng/ml (0-0.5) H 03/19/23 11:55 Urine Color Dark Yellow 03/19/23 Unknown Urine Appearance Clear (Clear) 03/19/23 Unknown Urine pH 5.5 (4.5-7.5) 03/19/23 Unknown Ur Specific [place] 1.031 (1.000-1.030) H 03/19/23 Unknown Urine Protein 1+ (Negative) H 03/19/23 Unknown Urine Glucose (UA) Negative (Negative) 03/19/23 Unknown Urine Ketones Trace (Negative) H 03/19/23 Unknown Urine Blood Negative (Negative) 03/19/23 Unknown Urine Nitrite Negative (Negative) 03/19/23 Unknown Urine Bilirubin Negative (Negative) 03/19/23 Unknown Urine Urobilinogen Positive (Negative) H 03/19/23 Unknown Ur Leukocyte Esterase Negative (Negative) 03/19/23 Unknown Urine WBC (Auto) 1-5 /hpf (0-5) 03/19/23 Unknown Urine RBC (Auto) 0-4 /hpf (0-4) 03/19/23 Unknown U Hyaline Cast (Auto) 1-5 /lpf (0-5) 03/19/23 Unknown U Epithel Cells (Auto) 10-20 /lpf (0-5) H 03/19/23 Unknown Urine Bacteria (Auto) Negative (Negative) 03/19/23 Unknown Nasal Screen MRSA (PCR) Positive (Negative) A 03/21/23 Unknown Stl C. cayetanensis PCR Not Detected (NotDetected) 03/20/23 02:40 Stool Rotavirus A PCR Not Detected (NotDetected) 03/20/23 02:40 Stl Adenov F 41 PCR Not Detected (NotDetected) 03/20/23 02:40 Stool Astrovirus (PCR) Not Detected (NotDetected) 03/20/23 02:40 Stool Campylobacter PCR Not Detected (NotDetected) 03/20/23 02:40 Stl C. diff Tox B Gene Negative Cdiff Gene (Neg) 03/20/23 02:40 Stool Cryptosporidium PCR Not Detected (NotDetected) 03/20/23 02:40 Stl E.coli Shiga Tox PCR Not Detected (NotDetected) 03/20/23 02:40 Stl Enterotoxigenic E PCR Not Detected (NotDetected) 03/20/23 02:40 Stool EPEC (PCR) Not Detected (NotDetected) 03/20/23 02:40 Stool EAEC (PCR) Not Detected (NotDetected) 03/20/23 02:40 Stl E. histolytica PCR Not Detected (NotDetected) 03/20/23 02:40 Stool Giardia Lamblia PCR Not Detected (NotDetected) 03/20/23 02:40 Stool Salmonella PCR Not Detected (NotDetected) 03/20/23 02:40 Stool Sapovirus (PCR) Not Detected (NotDetected) 03/20/23 02:40 Stl P. shigelloides PCR Not Detected (NotDetected) 03/20/23 02:40 Stl Shigella/EIEC PCR Not Detected (NotDetected) 03/20/23 02:40 St Y.enterocolitica PCR Not Detected (NotDetected) 03/20/23 02:40 Stool Vibrio (PCR) Not Detected (NotDetected) 03/20/23 02:40 Stl Vibrio cholerae PCR Not Detected (NotDetected) 03/20/23 02:40 Stl Norovirus GI/GII PCR Not Detected (NotDetected) 03/20/23 02:40 Random Vancomycin 20.5 mcg/ml (10-20) H 03/22/23 05:17 Adenovirus (PCR) Not Detected (NotDetected) 03/19/23 12:08 B. pertussis DNA (PCR) Not Detected (NotDetected) 03/19/23 12:08 B.parapertussis DNA PCR Not Detected (NotDetected) 03/19/23 12:08 C. pneumoniae DNA (PCR) Not Detected (NotDetected) 03/19/23 12:08 Coronavirus OC43 (PCR) Not Detected (NotDetected) 03/19/23 12:08 Coronavirus HKU1 (PCR) Not Detected (NotDetected) 03/19/23 12:08 Coronavirus 229E (PCR) Not Detected (NotDetected) 03/19/23 12:08 SARS-CoV-2 (PCR) Not Detected (NotDetected) 03/19/23 12:08 Coronavirus NL63 (PCR) Not Detected (NotDetected) 03/19/23 12:08 Human Metapneumovir PCR Not Detected (NotDetected) 03/19/23 12:08 Influenza Type A (PCR) Not Detected (NotDetected) 03/19/23 12:08 Influenza Type B (PCR) Not Detected (NotDetected) 03/19/23 12:08 M. pneumoniae (PCR) Not Detected (NotDetected) 03/19/23 12:08 Parainfluenza 1 (PCR) Not Detected (NotDetected) 03/19/23 12:08 Parainfluenza 2 (PCR) Not Detected (NotDetected) 03/19/23 12:08 Parainfluenza 3 (PCR) Not Detected (NotDetected) 03/19/23 12:08 Parainfluenza 4 (PCR) Not Detected (NotDetected) 03/19/23 12:08 RSV (PCR) Not Detected (NotDetected) 03/19/23 12:08 Entero/Rhino (PCR) Not Detected (NotDetected) 03/19/23 12:08 AFB Specimen Processing Comment (.) 03/19/23 13:57 AFB Smear TNP 03/19/23 13:57 Blood Type O Negative 03/19/23 12:37 Blood Type Recheck O Negative 03/19/23 17:08 Antibody Screen NEGATIVE 03/19/23 12:37 Crossmatch See Detail 03/19/23 12:[address] 03/19/23 17:05 Exam(s): CT CHEST W/WO Contrast IV Amt: 90 ML OPTIRAY 320 EXAM: CT Chest Without and With Intravenous Contrast CLINICAL HISTORY: Reason for exam: cavitary lesions. TECHNIQUE: Axial computed tomography images of the chest without and with intravenous contrast. CTDI is 7.14 mGy and DLP is 458.79 mGy-cm. Automated exposure control was utilized for the study. A dose lowering technique was utilized adhering to the principles of ALARA. CONTRAST: Patient received 90 ML OPTIRAY 320 of IV contrast COMPARISON: February 12, 2023 CT. FINDINGS: There has been severe progression of consolidation in the left upper lobe and superior aspect of the left lower lobe. Extensive irregular cavitation has developed within the areas of consolidation. More diffuse infiltration without evaristo consolidation is seen in the basal aspect of the left lower lobe. The right lung is clear. Moderate sized left pleural effusion is stable. There is no evidence of pneumothorax. There appears to be left hilar and mild subcarinal lymphadenopathy. The left lower lobe pulmonary artery appears occluded but no focal filling defect is seen. IMPRESSION: Marked interval consolidation of the left upper lobe and superior aspect of the left lower lobe. Extensive cavitation has developed within the consolidation. This is associated with left hilar and subcarinal lymphadenopathy. This is nonspecific but very concerning for infection, particularly atypical infections including mycobacterial and fungal. Electronically signed by: Mino Swain MD 03/20/23 00:17 AM Chest X-Ray 03/22/23 07:21 XR chest 1V portable CLINICAL HISTORY: Follow up on left side infiltrates TECHNIQUE: Single frontal radiograph of the chest was obtained. Comparison: Comparison is made to chest radiograph 03/19/2023 FINDINGS: No lines and tubes are seen. The cardiomediastinal silhouette is obscured. Interval worsening of left-sided airspace opacities with cystic foci in the upper lung and increased lower lung opacities. Small to moderate left pleural effusion is seen. IMPRESSION: Interval worsening of left sided airspace opacities. Cystic lesions are again seen in the upper lungs. There is a likely left pleural effusion. ACT 112: Negative or not required by law. Electronically signed by: Pj Harris M.D. 03/22/2023 10:08 AM (3) Leukocytosis Leukocytosis type: unspecified Qualified Code(s): D72.829 - Elevated white blood cell count, unspecified
[2023-03-22 15:28] LABS: Quantiferon Mitogen-NIL 0.14 IU/mL; Quantiferon NIL 0.01 IU/mL; Quantiferon TB Gold Plus INDETERMINATE (NEGATIVE)
[2023-03-22] MEDS: VANCOMYCIN HCL 1,000 MG in SODIUM CHLORIDE 0.9% 250 ML IV SCH ×2 (17:39→23:39)
[2023-03-23] MEDS: ACETAMINOPHEN 325 MG TAB PO PRN (05:41)
[2023-03-23] MEDS ORDERED: VANCOMYCIN LEVEL ONE (07:30)
[2023-03-23] MEDS: ALBUT/IPRATROP 3MG/0.5MG NEB 3 ML VIAL NEB SCH ×4 (07:49→19:13)
[2023-03-23] MEDS: SODIUM CHLOR 7% 4 ML NEB NEB SCH ×2 (07:49→19:14)
[2023-03-23 08:09] LABS: Basophils # (auto) 0.04 K/uL (0-0.2); Basophils % (auto) 0.3 %; Eosinophils # (auto) 0.07 K/uL (0-0.50); Eosinophils % (auto) 0.5 %; Hematocrit (blood only) 23.7 % (42.0-52.0); Hemoglobin 7.5 g/dl (14.0-18.0); Immature Granulocytes # (auto) 0.12 K/uL (0.01-0.20); Immature Granulocytes % (auto) 0.8 %; Lymphocytes # (auto) 0.31 K/uL (1.2-3.4); Lymphocytes % (auto) 2.1 %; Mean Corpuscular Hemoglobin 26.3 pg (25.0-34.0); Mean Corpuscular Hgb Conc 31.6 g/dL (32.0-36.0); Mean Corpuscular Volume 83.2 fL (80.0-100.0); Mean Platelet Volume 9.9 fL (9.4-12.4); Monocytes # (auto) 0.95 K/uL (0.11-0.59); Monocytes % (auto) 6.5 %; Neutrophils # (auto) 13.04 K/uL (1.40-6.50); Neutrophils % (auto) 89.8 %; Platelet Count 269 K/uL (130-400); RDW Coefficient of Variation 17.7 % (11.5-14.5); RDW Standard Deviation 53.9 fL (36.4-46.3); Red Blood Count 2.85 M/uL (4.70-6.10); White Blood Count 14.53 K/ul (4.8-10.8)
[2023-03-23] MEDS: FOLIC ACID 1 MG in SYRINGE 9.8 ML IV SCH (08:20)
[2023-03-23] MEDS: DOCUSATE SODIUM 100 MG CAP PO SCH ×2 (08:21→20:12)
[2023-03-23] MEDS: HEPARIN SOD 5,000 UNIT/0.5 ML VIAL SQ SCH ×2 (08:21→20:12)
[2023-03-23] MEDS: TAMSULOSIN HCL 0.4 MG CAP PO SCH (08:21)
[2023-03-23] MEDS: ADVANCED PROBIOTIC 1250 MG CAPSULE PO SCH (08:21)
[2023-03-23] MEDS: PIPERACILLIN/TAZOBACTAM 4.5 GM CI (over 4 hours) IV SCH ×3 (08:22→23:29)
[2023-03-23] MEDS: VANCOMYCIN HCL 1,000 MG in SODIUM CHLORIDE 0.9% 250 ML IV SCH ×2 (08:22→23:29)
[2023-03-23 08:28] LABS: BUN Creatinine Ratio 15.4 (10-20); Calcium 7.9 mg/dl (8.6-10.3); Creatinine Clr Calc Pharmacy 74.8 ml/min; Est GFR (African American) 104.3 ml/min; Potassium 3.7 mmol/L (3.5-5.1)
--- NOTE | 2023-03-23 09:09 | Pharmacy Report ---
Pharmacy PK ABX Note - Date of Service March 23, 2023 - Assessment and Plan Assessment 03/23: * Patient continues on vancomycin/zosyn - day #5 * Scr worsening from 0.8 to 0.9 mg/dL. Trough level came back at 21 mcg/ml - this dosing is associated with AUC >600, therefore will need to scale back on vancomycin dosing. * Vancomycin dose given this AM - plan to collect random level this evening to ensure appropriate to redose with vancomycin tonight 03/22: * Day #4 of antimicrobial therapy * Leukocytosis improving, SCr slightly increased this morning although it does appear within his normal fluctuation- will monitor * Trough level this AM therapeutic although predicting a supratherapeutic AUC/EFRA per calculation software. * Will slightly reduce dose today down to 1000 mg q8, recheck trough tomorrow AM, may require further reduction. 03/21 62 year old M receiving Vancomycin and Zosyn for treatment of pulmonary infection. * Day #3 of antimicrobial therapy. * Afebrile. Leukocytosis improving. Renal fxn stable. * Trough level this AM at goal. However, it is expected to be supratherapeutic at steady state per AUC/EFRA calculation software. We have previous patient specific kinetic information on this current regimen which resulted in therapeutic levels. Therefore, will continue with more aggressive regimen today and check a trough tomorrow. Plan Vancomycin * Current regimen: 1000 mg iv q 8 hours * Trough level was ~21 mcg/ml this AM. * Predicted AUC at steady state: >600 mg/L.hr which is supratherapeutic. Will order random level for tonight to ensure okay to redose since Scr continuing to change * Random vancomycin level ordered tonight ~2000 to reassess further dosing Pharmacy has transitioned to AUC monitoring for vancomycin. AUC/EFRA is the preferred PK/PD target and is associated with decreased risk of nephrotoxicity compared to traditional trough targets.
[2023-03-23 09:25] LABS: Echinocytes 1+; Polychromasia 1+
--- NOTE | 2023-03-23 11:58 | Hospitalist Progress Note ---
Date of Service March 23, 2023 Assessment & Plan (1) Squamous cell carcinoma of left lung: (2) Weight loss: (3) Leukocytosis: (4) Weakness: (5) BPH (benign prostatic hyperplasia): Plan 62 year old with SCC left lung; follows Dr. Pierson. Presents by recommendation of Dr. Aleman for worsening leukocytosis. Dx SCC left lung 10/[address] Layton. Imaging today suggestive of cavitary lesions. AF culture Q8 x24 hours. Vanco + Zosyn per ID. 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 Extensive cavitation within the consultation. Labs reviewed; leukocytosis improved from 28,00 to 14,000 Gram stain of the sputum shows rare gram-positive bacilli, gram-positive cocci and gram-negative bacilli. Culture shows normal christopher. EKG reviewed personally; sinus tachycardia; no other abnormality seen. AFP smear negative Continue on Vanco and Zosyn. MRSA nares positive Urine histoplasma sent, beta D glucan sent as well as PJp PCR Awaiting infectious disease input Repeat chest x-ray on March 22 shows increased in left-sided infiltrate; informed pulmonology; awaiting recommendation. Discussed with GI; work-up for hepatitis C and subsequent treatment to be done as outpatient Continue airway clearance therapy with flutter valve. Hypertonic saline nebs. Symptomatic Anemia status post 1 unit of RBC transfusion Hemoglobin stable presently. Continue to monitor. Diarrhea: Occuring x 48 hours Likely side effect of his chemo tx GI PCR panel negative BPH: Takes tamsulosin; continue Disposition: PCP: Dr. Genao CODE STATUS: Full code VTE prophylaxis: Teds and SCDs for now + Heparin SQ Time spent evaluating patient, direct bedside care, chart review, placing orders, interpretation of diagnostic studies, discussion with consultants, patient, and family members, as well as other required patient management activities is 60 minutes Please note the above document was generated using voice recognition software. It may contain grammatical, syntax or spelling errors. Any formal questions or concerns about the content, text or information contained within the body of this dictation should be directly addressed to the provider for clarification Admission and Anticipated Discharge Date Admission Date: March 19, 2023 Subjective Patient seen and examined at bedside. He is lying on the bed comfortably. Reports large amount of cough with mucus production. Denies shortness of breath. Saturating well on room air. Review of Systems Review of Systems: All systems reviewed & are unremarkable except as noted in Subjective Physical Exam Physical Exam: Constitutional: WD/WN, vitals as above, NAD, sitting up in bed, pleasant, conversing easily Neck: trachea midline, no thyromegaly normal visual inspection Respiratory: Decreased breath sound on left lung field. Cardiovascular: RRR, no murmur, no edema Vessels: no JVD or carotid bruit Chest: normal inspection of chest Abdomen: normal bowel sounds, soft, nontender, no hepatosplenomegaly Musculoskeletal: no cyanosis or clubbing, extremities motor strength 5/5 Skin: no rashes, warm and dry normal turgor Neurologic: PERRL, EOMI, accommodation nl, no face palsy, no dysarthria CN's II- XI intact bilaterally and moves all extremities Results & Data Results & Data Vital Signs (Past 12 Hours) Vital Signs Temp Pulse Pulse Resp BP Pulse Ox O2 Del Method 03/23/23 09:12 36.6 C 110 H 17 100/65 92 Room Air 03/23/23 08:48 Room Air 03/23/23 07:51 75 15 93 Room Air 03/23/23 07:16 103 H 03/23/23 03:29 36.8 C 98 H 18 110/68 97 Room Air FiO2 03/23/23 09:12 03/23/23 08:48 03/23/23 07:51 21 03/23/23 07:16 03/23/23 03:29 Laboratory Results Laboratory Results WBC 14.53 K/ul (4.8-10.8) H 03/23/23 07:36 RBC 2.85 M/uL (4.70-6.10) L 03/23/23 07:36 Hgb 7.5 g/dl (14.0-18.0) L 03/23/23 07:36 POC Hgb 6.1 g/dl (14.0-18.0) L* 03/19/23 13:53 Hct 23.7 % (42.0-52.0) L 03/23/23 07:36 POC Hct 18 % (42-52) L* 03/19/23 13:53 MCV 83.2 fL (80.0-100.0) 03/23/23 07:36 MCH 26.3 pg (25.0-34.0) 03/23/23 07:36 MCHC 31.6 g/dL (32.0-36.0) L 03/23/23 07:36 RDW Std Deviation 53.9 fL (36.4-46.3) H 03/23/23 07:36 RDW Coeff of Mathieu 17.7 % (11.5-14.5) H 03/23/23 07:36 Plt Count 269 K/uL (130-400) 03/23/23 07:36 MPV 9.9 fL (9.4-12.4) 03/23/23 07:36 Immature Gran % (Auto) 0.8 % 03/23/23 07:36 Neut % (Auto) 89.8 % 03/23/23 07:36 Lymph % (Auto) 2.1 % 03/23/23 07:36 [place] % (Auto) 6.5 % 03/23/23 07:36 Eos % (Auto) 0.5 % 03/23/23 07:36 Baso % (Auto) 0.3 % 03/23/23 07:36 Neut # (Auto) 13.04 K/uL (1.40-6.50) H 03/23/23 07:36 Lymph # (Auto) 0.31 K/uL (1.2-3.4) L 03/23/23 07:36 [place] # (Auto) 0.95 K/uL (0.11-0.59) H 03/23/23 07:36 Eos # (Auto) 0.07 K/uL (0-0.50) 03/23/23 07:36 Baso # (Auto) 0.04 K/uL (0-0.2) 03/23/23 07:36 Immature Gran # (Auto) 0.12 K/uL (0.01-0.20) 03/23/23 07:36 Polychromasia 1+ 03/23/23 07:36 Hypochromasia Present 03/19/23 11:55 Anisocytosis Present 03/22/23 05:17 Echinocytes 1+ 03/23/23 07:36 PT 12.0 Seconds (9.0-12.0) 03/19/23 11:55 INR 1.1 (0.9-1.1) 03/19/23 11:55 APTT 26.6 Seconds (21.0-31.0) 03/19/23 11:55 PTT Ratio 0.9 03/19/23 11:55 ABG pH 7.49 (7.35-7.45) H 03/19/23 12:54 ABG pCO2 27 mmHg (35-46) L 03/19/23 12:54 ABG pO2 91 mmHg (80-95) 03/19/23 12:54 ABG HCO3 21 mmol/L (19-24) 03/19/23 12:54 ABG O2 Saturation 99.3 % (90-95) H 03/19/23 12:54 ABG Base Excess -1.4 mEq/L (-9-1.8) 03/19/23 12:54 [place] Test Pos (Pos) 03/19/23 12:54 Oxygen Given ROOM AIR 03/19/23 12:54 POC Sodium 132 mmol/L (135-144) L 03/19/23 13:53 Sodium 134 mmol/L (136-145) L 03/23/23 07:36 POC Potassium 3.0 mmol/L (3.3-5.0) L 03/19/23 13:53 Potassium 3.7 mmol/L (3.5-5.1) 03/23/23 07:36 POC Chloride 100 mmol/L (101-112) L 03/19/23 13:53 Chloride 103 mmol/L (98-107) 03/23/23 07:36 Carbon Dioxide 25 mmol/L (21-32) 03/23/23 07:36 POC Total CO2 20 mmol/L (24-31) L 03/19/23 13:53 Anion Gap 6 (3-11) 03/23/23 07:36 POC Anion Gap 17.0 mmol/L (16-25) 03/19/23 13:53 POC BUN 19 mg/dl (7-18) H 03/19/23 13:53 BUN 14 mg/dl (6-23) 03/23/23 07:36 Creatinine 0.91 mg/dl (0.6-1.4) 03/23/23 07:36 POC Creatinine 0.5 mg/dl (0.6-1.3) L 03/19/23 13:53 Est Cr Clr Drug Dosing 74.8 ml/min 03/23/23 07:36 Est GFR ( Amer) 104.3 ml/min 03/23/23 07:36 Est GFR (Non-Af Amer) 90.0 ml/min 03/23/23 07:36 BUN/Creatinine Ratio 15.4 (10-20) 03/23/23 07:36 Glucose 91 mg/dl (70-99(Fasting)) 03/23/23 07:36 POC Glucose (other) 108 mg/dl (70-99) H 03/19/23 13:53 Lactate 1.4 mmol/L (0.4-2.0) 03/19/23 12:53 Calcium 7.9 mg/dl (8.6-10.3) L 03/23/23 07:36 POC Ioniz Calcium Antonio 1.05 mmol/l (1.12-1.32) L 03/19/23 13:53 Magnesium 1.6 mg/dl (1.7-2.4) L 03/20/23 10:23 Total Bilirubin 0.6 mg/dl (0.2-1.0) 03/20/23 10:23 Direct Bilirubin 0.2 mg/dl (0-0.2) 03/19/23 11:55 AST 38 U/L (13-39) 03/20/23 10:23 ALT 45 U/L (7-52) 03/20/23 10:23 Alkaline Phosphatase 90 U/L (34-104) 03/20/23 10:23 Troponin I High Sens 19.3 pg/ml (0-20) 03/19/23 11:55 Total Protein 5.0 gm/dl (6.0-8.3) L D 03/20/23 10:23 Albumin 2.2 gm/dl (3.4-5.0) L 03/20/23 10:23 Globulin 2.8 gm/dl (2.5-4.0) 03/20/23 10:23 Albumin/Globulin Ratio 0.8 (0.9-2) L 03/20/23 10:23 Procalcitonin 1.07 ng/ml (0-0.5) H 03/19/23 11:55 Urine Color Dark Yellow 03/19/23 Unknown Urine Appearance Clear (Clear) 03/19/23 Unknown Urine pH 5.5 (4.5-7.5) 03/19/23 Unknown Ur Specific [place] 1.031 (1.000-1.030) H 03/19/23 Unknown Urine Protein 1+ (Negative) H 03/19/23 Unknown Urine Glucose (UA) Negative (Negative) 03/19/23 Unknown Urine Ketones Trace (Negative) H 03/19/23 Unknown Urine Blood Negative (Negative) 03/19/23 Unknown Urine Nitrite Negative (Negative) 03/19/23 Unknown Urine Bilirubin Negative (Negative) 03/19/23 Unknown Urine Urobilinogen Positive (Negative) H 03/19/23 Unknown Ur Leukocyte Esterase Negative (Negative) 03/19/23 Unknown Urine WBC (Auto) 1-5 /hpf (0-5) 03/19/23 Unknown Urine RBC (Auto) 0-4 /hpf (0-4) 03/19/23 Unknown U Hyaline Cast (Auto) 1-5 /lpf (0-5) 03/19/23 Unknown U Epithel Cells (Auto) 10-20 /lpf (0-5) H 03/19/23 Unknown Urine Bacteria (Auto) Negative (Negative) 03/19/23 Unknown Nasal Screen MRSA (PCR) Positive (Negative) A 03/21/23 Unknown Stl C. cayetanensis PCR Not Detected (NotDetected) 03/20/23 02:40 Stool Rotavirus A PCR Not Detected (NotDetected) 03/20/23 02:40 Stl Adenov F 40/41 PCR Not Detected (NotDetected) 03/20/23 02:40 Stool Astrovirus (PCR) Not Detected (NotDetected) 03/20/23 02:40 Stool Campylobacter PCR Not Detected (NotDetected) 03/20/23 02:40 Stl C. diff Tox B Gene Negative Cdiff Gene (Neg) 03/20/23 02:40 Stool Cryptosporidium PCR Not Detected (NotDetected) 03/20/23 02:40 Stl E.coli Shiga Tox PCR Not Detected (NotDetected) 03/20/23 02:40 Stl Enterotoxigenic E PCR Not Detected (NotDetected) 03/20/23 02:40 Stool EPEC (PCR) Not Detected (NotDetected) 03/20/23 02:40 Stool EAEC (PCR) Not Detected (NotDetected) 03/20/23 02:40 Stl E. histolytica PCR Not Detected (NotDetected) 03/20/23 02:40 Stool Giardia Lamblia PCR Not Detected (NotDetected) 03/20/23 02:40 Stool Salmonella PCR Not Detected (NotDetected) 03/20/23 02:40 Stool Sapovirus (PCR) Not Detected (NotDetected) 03/20/23 02:40 Stl P. shigelloides PCR Not Detected (NotDetected) 03/20/23 02:40 Stl Shigella/EIEC PCR Not Detected (NotDetected) 03/20/23 02:40 St Y.enterocolitica PCR Not Detected (NotDetected) 03/20/23 02:40 Stool Vibrio (PCR) Not Detected (NotDetected) 03/20/23 02:40 Stl Vibrio cholerae PCR Not Detected (NotDetected) 03/20/23 02:40 Stl Norovirus GI/GII PCR Not Detected (NotDetected) 03/20/23 02:40 Random Vancomycin 21.3 mcg/ml (10-20) H 03/23/23 07:36 Adenovirus (PCR) Not Detected (NotDetected) 03/19/23 12:08 B. pertussis DNA (PCR) Not Detected (NotDetected) 03/19/23 12:08 B.parapertussis DNA PCR Not Detected (NotDetected) 03/19/23 12:08 C. pneumoniae DNA (PCR) Not Detected (NotDetected) 03/19/23 12:08 Coronavirus OC43 (PCR) Not Detected (NotDetected) 03/19/23 12:08 Coronavirus HKU1 (PCR) Not Detected (NotDetected) 03/19/23 12:08 Coronavirus 229E (PCR) Not Detected (NotDetected) 03/19/23 12:08 SARS-CoV-2 (PCR) Not Detected (NotDetected) 03/19/23 12:08 Coronavirus NL63 (PCR) Not Detected (NotDetected) 03/19/23 12:08 Human Metapneumovir PCR Not Detected (NotDetected) 03/19/23 12:08 Influenza Type A (PCR) Not Detected (NotDetected) 03/19/23 12:08 Influenza Type B (PCR) Not Detected (NotDetected) 03/19/23 12:08 M. pneumoniae (PCR) Not Detected (NotDetected) 03/19/23 12:08 Parainfluenza 1 (PCR) Not Detected (NotDetected) 03/19/23 12:08 Parainfluenza 2 (PCR) Not Detected (NotDetected) 03/19/23 12:08 Parainfluenza 3 (PCR) Not Detected (NotDetected) 03/19/23 12:08 Parainfluenza 4 (PCR) Not Detected (NotDetected) 03/19/23 12:08 RSV (PCR) Not Detected (NotDetected) 03/19/23 12:08 Entero/Rhino (PCR) Not Detected (NotDetected) 03/19/23 12:08 TB Test (QFT) Gold Plus INDETERMINATE (NEGATIVE) A 03/19/23 12:37 TB Test (QFT) Nil 0.01 IU/mL 03/19/23 12:37 TB Test Mitogen - Nil 0.14 IU/mL 03/19/23 12:37 TB Test Ag - Nil 1 0.00 IU/mL 03/19/23 12:37 TB Test Ag - Nil 2 0.00 IU/mL 03/19/23 12:37 AFB Specimen Processing Comment (.) 03/19/23 13:57 AFB Smear TNP 03/19/23 13:57 Blood Type O Negative 03/19/23 12:37 Blood Type Recheck O Negative 03/19/23 17:08 Antibody Screen NEGATIVE 03/19/23 12:37 Crossmatch See Detail 03/19/23 12:[address] 03/19/23 17:05 Exam(s): CT CHEST W/WO Contrast IV Amt: 90 ML OPTIRAY 320 EXAM: CT Chest Without and With Intravenous Contrast CLINICAL HISTORY: Reason for exam: cavitary lesions. TECHNIQUE: Axial computed tomography images of the chest without and with intravenous contrast. CTDI is 7.14 mGy and DLP is 458.79 mGy-cm. Automated exposure control was utilized for the study. A dose lowering technique was utilized adhering to the principles of ALARA. CONTRAST: Patient received 90 ML OPTIRAY 320 of IV contrast COMPARISON: February 12, 2023 CT. FINDINGS: There has been severe progression of consolidation in the left upper lobe and superior aspect of the left lower lobe. Extensive irregular cavitation has developed within the areas of consolidation. More diffuse infiltration without eavristo consolidation is seen in the basal aspect of the left lower lobe. The right lung is clear. Moderate sized left pleural effusion is stable. There is no evidence of pneumothorax. There appears to be left hilar and mild subcarinal lymphadenopathy. The left lower lobe pulmonary artery appears occluded but no focal filling defect is seen. IMPRESSION: Marked interval consolidation of the left upper lobe and superior aspect of the left lower lobe. Extensive cavitation has developed within the consolidation. This is associated with left hilar and subcarinal lymphadenopathy. This is nonspecific but very concerning for infection, particularly atypical infections including mycobacterial and fungal. Electronically signed by: Mino Swain MD 03/20/23 00:17 AM Chest X-Ray 03/22/23 07:21 XR chest 1V portable CLINICAL HISTORY: Follow up on left side infiltrates TECHNIQUE: Single frontal radiograph of the chest was obtained. Comparison: Comparison is made to chest radiograph 03/19/2023 FINDINGS: No lines and tubes are seen. The cardiomediastinal silhouette is obscured. Interval worsening of left-sided airspace opacities with cystic foci in the upper lung and increased lower lung opacities. Small to moderate left pleural effusion is seen. IMPRESSION: Interval worsening of left sided airspace opacities. Cystic lesions are again seen in the upper lungs. There is a likely left pleural effusion. ACT 112: Negative or not required by law. Electronically signed by: Pj Harris M.D. 03/22/2023 10:08 AM (3) Leukocytosis Leukocytosis type: unspecified Qualified Code(s): D72.829 - Elevated white blood cell count, unspecified
[2023-03-24] MEDS: ALBUT/IPRATROP 3MG/0.5MG NEB 3 ML VIAL NEB SCH ×2 (07:13→11:12)
[2023-03-24] MEDS: SODIUM CHLOR 7% 4 ML NEB NEB SCH (07:13)
[2023-03-24 07:18] LABS: Basophils # (auto) 0.05 K/uL (0-0.2); Basophils % (auto) 0.4 %; Eosinophils # (auto) 0.11 K/uL (0-0.50); Eosinophils % (auto) 0.9 %; Hematocrit (blood only) 22.9 % (42.0-52.0); Hemoglobin 7.2 g/dl (14.0-18.0); Immature Granulocytes # (auto) 0.11 K/uL (0.01-0.20); Immature Granulocytes % (auto) 0.9 %; Lymphocytes % (auto) 3.2 %; Mean Corpuscular Hemoglobin 26.5 pg (25.0-34.0); Mean Corpuscular Hgb Conc 31.4 g/dL (32.0-36.0); Mean Corpuscular Volume 84.2 fL (80.0-100.0); Mean Platelet Volume 10.1 fL (9.4-12.4); Monocytes # (auto) 1.02 K/uL (0.11-0.59); Monocytes % (auto) 8.1 %; Neutrophils # (auto) 10.85 K/uL (1.40-6.50); Neutrophils % (auto) 86.5 %; Platelet Count 258 K/uL (130-400); RDW Coefficient of Variation 17.8 % (11.5-14.5); RDW Standard Deviation 54.1 fL (36.4-46.3); Red Blood Count 2.72 M/uL (4.70-6.10); White Blood Count 12.54 K/ul (4.8-10.8)
[2023-03-24] MEDS: DOCUSATE SODIUM 100 MG CAP PO SCH (07:22)
[2023-03-24] MEDS: FOLIC ACID 1 MG in SYRINGE 9.8 ML IV SCH (07:22)
[2023-03-24] MEDS: HEPARIN SOD 5,000 UNIT/0.5 ML VIAL SQ SCH (07:23)
[2023-03-24] MEDS: TAMSULOSIN HCL 0.4 MG CAP PO SCH (07:23)
[2023-03-24] MEDS: ADVANCED PROBIOTIC 1250 MG CAPSULE PO SCH (07:23)
[2023-03-24] MEDS: PIPERACILLIN/TAZOBACTAM 4.5 GM CI (over 4 hours) IV SCH (07:24)
[2023-03-24 07:33] LABS: Albumin Globulin Ratio 0.8 (0.9-2); Albumin Level 2.2 gm/dl (3.4-5.0); BUN Creatinine Ratio 16.7 (10-20); Bilirubin,Total 0.3 mg/dl (0.2-1.0); Calcium 7.8 mg/dl (8.6-10.3); Creatinine Clr Calc Pharmacy 81.5 ml/min; Est GFR (African American) 108.8 ml/min; Est GFR (Non-African American) 93.8 ml/min; Globulin 2.8 gm/dl (2.5-4.0); Potassium 3.7 mmol/L (3.5-5.1)
[2023-03-24] MEDS: ACETAMINOPHEN 325 MG TAB PO PRN (07:33)
[2023-03-24 07:42] LABS: Hypochromasia Present
--- NOTE | 2023-03-24 10:51 | XRay Report ---
XR chest 1V portable CLINICAL HISTORY: Follow up on previous cxr. Lung cancer. COMPARISON STUDY: Chest CT March 19, 2023. Chest radiograph March 22, 2023. FINDINGS: There is no pneumothorax. A small left pleural effusion is again noted. There has been prog ressive opacification of the left hemithorax with volume loss. Numerous cavitary foci are again noted within the mid to upper lung. There is mild interstitial thickening within the right lung. IMPRESSION: 1. Extensive left lung opacification which has progressed since prior exam. This suggests an infectio us process. Multifocal cavitation again noted. 2. Small left pleural effusion. 3. No change in interstitial thickening within the right lung which is also likely infectious. ACT 112: Negative or not required by law. Electronically signed by: Jace Call M.D. 03/24/2023 10:49 AM
[2023-03-24] MEDS: VANCOMYCIN HCL 1,000 MG in SODIUM CHLORIDE 0.9% 250 ML IV SCH (11:35)
[2023-03-24] MEDS ORDERED: VORICONAZOLE 200 MG TABLET PO SCH (12:00)
--- NOTE | 2023-03-24 14:28 | Discharge Summary ---
Date of Service March 24, 2023 Admission HPI Per Admitting Provider Mr. Bah is a 62 year old male that presented to the [facility] today after being referred by his Oncologist, Dr. Pierson for worsening leukocytosis. WBC 28k. Patient had blood work done today which showed l eukocytosis of nearly 30. Chest x-ray reveals left-sided cavitary lesion. ED discussed with [facility] ID Dr. Santos. Patient had a chest CT done 10/2022 showing perihilar mass lesion measuring approximately 6 cm. At that time patient had a bronchoscopy done by Dr. Layton confirming his cancer diagnosis. AFB and culture were obtained during the [facility] which were negative. Per discussion with the ED infectious disease recommends an AFB culture and smear every 8 x24 hours and recommends initiation of vancomycin plus Zosyn. Patient reports nearly 20 pound weight loss since October 2022 at the time of his diagnosis. Pt does report worsening weakness and shortness of breath including orthopnea. Pt reports having diarrhea over the past 48 hours. Reports more increase in malodor but does not suggest any mucus in stool. After speaking with Dr. Pierson he states that there are increased GI effects related to his chemotherapy treatment. Pt currently being treated for squamous cell carcinoma under the care of Dr. Peirson diagnosed October 2022. I spoke with Dr. Pierson on the phone and confirmed that his last chemotherapy was Taxol in January 2023 with a tislelizumab and immune checkpoint treatment most recently. B12 level in January was normal ferritin 556 in January. Suspect that he is in the acute phase reaction period of time. Dr. Lee goal hemoglobin greater than 7.0 we will transfuse 1 unit PRBC. Do not have suspicion of his lung cancer progressing rather GI effects relating to the immuno checkpoint causing leukocytosis. Patient did have a month long hospitalization in January for MRSA bacteremia secondary to port infection, bilateral lobe pneumonia, MRSA cellulitis and radiation dermatitis of left upper chest. Port was removed by surgery at that time and replaced by a PICC line and he completed a long course of IV vancomycin. 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 Patient denies recent travel, incarceration, or exposure to anyone with TB. WBC 28.20 with neutrophil 25.90. Pt slightly hyponatremic 132, hypokalemic 3.0. Mag 1.8. Respiratory alkalosis on ABG pH 7.49, CO2 27, bicarb 21. Patient will be moved to negative pressure room to obtain sputum samples and for the duration of his emergency department stay respiratory airborne isolation's and precautions are maintained. Patient denies headache, dizziness, chest pain, palpitations, abdominal pain, nausea, vomiting, recent falls or trauma. Pt is sitting in his hospital bed in no apparent distress, but does have course lung sounds and SOB with activity and exertion. Patient lung sounds coarse. Euvolemic on exam and stable hemodynamically; however after the patient was transferred to the floor he became tachycardic and tachypneic requiring increased O2 use. Patient to be given 1 unit PRBC on the floor. Nutritional studies were done as an outpatient. Patient will be admitted for further evaluation and management. Please see A/P for further details. Admission Exam Per Admitting Provider Neuro: AAOx4, PERRLA, no aphasia, memory changes, CNII-XII grossly intact HEENT: head normocephalic, moist mucus membranes CV: S1/S2, (-) M/G/R, (-) edema, cap refill < 3 seconds Resp: Lungs coarse throughout GI: Abdomen S/NT/ND, Ax4 bowel sounds, (-) CVA tenderness Musculoskeletal: 5/5 B/L UE strength, 5/5 B/L LE strength. No gait disturbance Skin: (-) rashes , (-) erythema. Psych: euthymic mood, but anxious regarding diagnosis and treatment Principal Diagnosis Sepsis likely secondary to pneumonia: Squamous cell carcinoma of left lung: Leukocytosis: Weight loss: Weakness: Discharge Exam Constitutional: WD/WN, vitals as above, NAD, sitting up in bed, pleasant, conversing easily Neck: trachea midline, no thyromegaly normal visual inspection Respiratory: Decreased breath sound on left lung field. Cardiovascular: RRR, no murmur, no edema Vessels: no JVD or carotid bruit Chest: normal inspection of chest Abdomen: normal bowel sounds, soft, nontender, no hepatosplenomegaly Musculoskeletal: no cyanosis or clubbing, extremities motor strength 5/5 Skin: no rashes, warm and dry normal turgor Neurologic: PERRL, EOMI, accommodation nl, no face palsy, no dysarthria CN's II- XI intact bilaterally and moves all extremities Discharge Data Allergies Allergy/AdvReac Type Severity Reaction Status Date / Time No Known Allergies Allergy Verified 03/11/23 16:08 Consultations 03/19/23 13:47 ED Decision to Admit Stat 03/19/23 14:06 Consult Infectious Diseases Routine 03/19/23 16:56 Consult Pulmonology Routine 03/19/23 17:00 Consult Hematology Routine Ordered Studies 03/19/23 17:05 CT chest diagnostic wo/w con Routine Hospital Course (1) Squamous cell carcinoma of left lung: (2) Weight loss: (3) Leukocytosis: (4) Weakness: (5) BPH (benign prostatic hyperplasia): Plan 62 year old with SCC left lung; follows Dr. Pierson. Presents by recommendation of Dr. Aleman for worsening leukocytosis. Dx SCC left lung 10/[address] Layton. Imaging today suggestive of cavitary lesions. AF culture Q8 x24 hours. Vanco + Zosyn per ID. 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 Extensive cavitation within the consultation. Labs reviewed; leukocytosis improved from 28,00 to 12,000 Gram stain of the sputum shows rare gram-positive bacilli, gram-positive cocci and gram-negative bacilli. Culture shows normal christopher. EKG reviewed personally; sinus tachycardia; no other abnormality seen. AFP smear negative During the hospitalization, patient was treated with IV vancomycin and IV Zosyn. Patient's MRSA nares were positive. However, patient sputum for AFB and regular Gram stain were negative. Pulmonology consultation was done. discussion was done with the provider multiple times. They suggested that the BAL will play no role as patient is expectorating copious amount of sputum. Infectious disease consultation was done; recommended fungal sputum culture, cryptococcal, Legionella, Nocardia, histo/blasto and PCP studies. Results of those tests are still awaited at discharge. Discussion was done with Dr. Bennett from infectious disease at discharge, recommended voriconazole and Augmentin for 7 days. Patient will need follow-up with infectious disease which was being set up. Also, patient to follow-up with PCP regarding the results of the remaining test. At discharge, patient leukocytosis had improved to 12,000. Patient was afebrile, and he was saturating well in room air. Please note the above document was generated using voice recognition software. It may contain grammatical, syntax or spelling errors. Any formal questions or concerns about the content, text or information contained within the body of this dictation should be directly addressed to the provider for clarification Total Time Total Time Spent Total Time Spent (In Minutes): 56 Total Time Includes: Examination of the Patient, Discharge Planning, Medication Reconciliation, Communication With Other Providers and Other Discharge Plan Discharge Items Patient Disposition: Home - Self-Care Reason For Visit: COUGH, CAVITARY LESIONS Discharge Diagnosis: Sepsis likely secondary to pneumonia: Squamous cell carcinoma of left lung: Leukocytosis: Weight loss: Weakness: Activity: Resume your previous activity Non-emergency contact: Primary Care Provider Call non-emergency contact if: you have any medication questions and your symptoms worsen Follow-up/Referrals: Mino Bennett DO [Physician] - (Date & Time 05/08/2023 10:20 AM Provider Mino Bennett DO Department Infectious Disease [facility] ) Wood Genao MD [Primary Care Provider] - (Date & Time 03/30/2023 2:00 PM Provider Wood Genao MD Department [facility] ) Diet: Regular Addtl Attending Provider Instructions: You were admitted to the hospital with pneumonia. You are prescribed following antibiotic for 7 days: 1) Augmentin twice daily 2) voriconazole twice daily Please continue your airway clearance therapy with hypertonic saline nebulizatio n along with your regular nebulizer twice a day. Hypertonic nebulizer solution has been prescribed. There is still some lab work pending which includes- Cryptococcal, Legionella, Nocardia, histo/blasto and PJP studies. Fungal sputum cultures. You will have follow-up with infectious disease and primary care doctor. Your oncologist have been updated about the progress. An appointment will be s et of with him as well. Pending Studies at Discharge: Yes (Cryptococcal, Legionella, Nocardia, histo/blasto and PJP studies. Fungal ) Studies:: Cryptococcal, Legionella, Nocardia, histo/blasto and PJP studies. Fungal sputum cultures. Stand-Alone Forms: [facility], Smoking Cessation Medications and DC Order Prescriptions: New voriconazole [Vfend] 200 mg Tablet 200 mg PO BID 14 Days Qty: 28 0RF sodium chloride 7 % Solution For Nebulization 4 ml NEB BIDR Qty: 120 0RF amoxicillin-pot clavulanate 875-125 mg tablet 1 tab PO BID 7 Days Qty: 14 0RF Continued ipratropium-albuterol 0.5 mg-3 mg(2.5 mg base)/3 mL solution for nebulization 3 ml inhalation QID PRN (Reason: Wheezing) Patient Comments: NOT CURRENT USING/ON BACK ORDER albuterol sulfate 90 mcg/actuation HFA aerosol inhaler 2 puff inhalation Q4 PRN (Reason: Wheezing) tamsulosin 0.4 mg Capsule 0.8 mg PO QAM docusate sodium [Stool Softener] 100 mg Tablet 100 mg PO BID loratadine [Claritin] 10 mg Tablet 10 mg PO QAM ketorolac 0.5 % drops 0 drp ophthalmic (eye) DAILY Rx Instructions: *Not started yet prednisolone acetate 1 % drops,suspension 0 drp ophthalmic (eye) DAILY Rx Instructions: *Not started yet ibuprofen 200 mg Tablet 200 mg PO TID PRN (Reason: Pain) gatifloxacin 0.5 % drops 0 drp ophthalmic (eye) DAILY Rx Instructions: *Not started yet Discharge Orders: Discharge Order (Routine); Ordered 03/24/23 Ordered By: Narayan Underwood Admission Data Admit Date/Time: 03/19/23 14:06 Attending Provider: Narayan Underwood Admit Provider: Reinier Stuart Primary Care Provider: Wood Genao Other Providers: Reinier Stuart ; Gomez Galaviz ; Humberto Hernandez ; Robb Mercado I. ; Sherif Nuno II ; Vero Jean Baptiste ; Deacon Haramn ; Mino Bennett ; Ruddy Zelaya ; Lucas Espinoza ; Cassius Lee Other Interventions: Discharge Summary Assessment (RN) Last Done: 03/24/23 14:07
== END 2023-03-24 14:41 | disposition home or self-care (01) | DRG 871 ==
LOC: ED 11:20 → SUATTDRO 14:06 → 2N 14:06

== ENCOUNTER 2023-11-27 07:30 | Inpatient (IN) ==
[2023-11-27] MEDS: ALBUT/IPRATROP 3MG/0.5MG NEB 3 ML VIAL NEB STA (07:43)
[2023-11-27] MEDS: DIGOXIN 500 MCG in SYRINGE 8 ML IV STA (07:59)
[2023-11-27 08:09] LABS: Basophils # (auto) 0.08 K/uL (0.00-0.20); Basophils % (auto) 0.4 %; Eosinophils # (auto) 0.02 K/uL (0.00-0.50); Eosinophils % (auto) 0.1 %; Hematocrit (blood only) 36.7 % (42.0-52.0); Hemoglobin 10.9 g/dl (14.0-18.0); Immature Granulocytes # (auto) 0.19 K/uL (0.01-0.20); Immature Granulocytes % (auto) 0.9 %; Lymphocytes # (auto) 0.68 K/uL (1.20-3.40); Lymphocytes % (auto) 3.2 %; Mean Corpuscular Hgb Conc 29.7 g/dL (32.0-36.0); Mean Corpuscular Volume 80.8 fL (80.0-100.0); Mean Platelet Volume 9.5 fL (9.4-12.4); Monocytes # (auto) 1.38 K/uL (0.11-0.59); Monocytes % (auto) 6.5 %; Neutrophils # (auto) 18.85 K/uL (1.40-6.50); Neutrophils % (auto) 88.9 %; Platelet Count 398 K/uL (130-400); RDW Standard Deviation 43.8 fL (36.4-46.3); Red Blood Count 4.54 M/uL (4.70-6.10)
[2023-11-27] MEDS: dilTIAZem HCl 5 MG/ML 5 ML VIAL IV STA (08:09)
[2023-11-27] MEDS: ALBUT/IPRATROP 3MG/0.5MG NEB 3 ML VIAL INH STA (08:14)
[2023-11-27] MEDS: dilTIAZem HCL 125 MG in DEXTROSE 5% 100 ML IV SCH (08:14)
--- NOTE | 2023-11-27 08:15 | XRay Report ---
XR chest 1V portable CLINICAL HISTORY: Dyspnea. Lung cancer. COMPARISON STUDY: Chest radiograph March 24, 2023. Chest CT October 23, 2023. FINDINGS: There is no pneumothorax. A left pleural effusion is present. Size is difficult to assess b y radiography. Near-complete opacification of the left lung has slightly decreased since prior exam w ith volume loss. There is minimal aeration of the left upper lobe. Several right lung nodules measure up to 9 mm. There is mild interstitial thickening within the right lung. No consolidation within the right lung. IMPRESSION: 1. Near complete opacification of the left lung, slightly decreased since prior exam. Minimal aeratio n of the left upper lobe. Associated left lung volume loss. Left pleural effusion. 2. Right lung nodules consistent with metastases. 3. Subtle interstitial thickening within the right lung. This may reflect mild interstitial edema. ACT 112: Negative or not required by law. Electronically signed by: Jace Call M.D. 11/27/2023 8:14 AM
[2023-11-27] MEDS: STAT IV Infusion **Titration per Protocol STA (08:18)
[2023-11-27 08:27] LABS: Alanine Aminotransferase 48 U/L (7-52); Albumin Globulin Ratio 0.8 (0.9-2); Albumin Level 3.3 gm/dl (3.4-5.0); Alkaline Phosphatase 213 U/L (34-104); Anion Gap 11 (3-11); Aspartate Aminotransferase 39 U/L (13-39); BUN Creatinine Ratio 29.3 (10-20); Bilirubin,Total 0.6 mg/dl (0.2-1.0); Blood Urea Nitrogen 24 mg/dl (6-23); Calcium 9.4 mg/dl (8.6-10.3); Carbon Dioxide 24 mmol/L (21-32); Chloride 93 mmol/L (98-107); Est GFR (African American) 109.8 ml/min; Est GFR (Non-African American) 94.8 ml/min; Glucose 200 mg/dl (70-99(Fasting)); INR 1.3 (0.9-1.1); Partial Thromboplastin Ratio 1.1; Partial Thromboplastin Time 32 Seconds (21-31); Prothrombin Time 14.1 Seconds (9.0-12.0); Sodium 128 mmol/L (136-145); Total Protein 7.3 gm/dl (6.0-8.3)
[2023-11-27] MEDS ORDERED: VANCOMYCIN CONSULT ACTIVE PRN ×2 (08:27→11:34)
[2023-11-27 08:32] LABS: Troponin I High Sensitivity 15.7 pg/ml (0-20)
[2023-11-27 08:43] LABS: Appearance Urine Clear (Clear); Bacteria Urine Automated Negative (Negative); Bilirubin Urine Negative (Negative); Blood Urine Negative (Negative); Color Urine Yellow; Epithelial Cell Urine Auto 0-5 /lpf (0-5); Glucose Urine UA Negative (Negative); Ketones Urine Negative (Negative); Leukocyte Esterase Urine Negative (Negative); Nitrite Urine Negative (Negative); Protein Urine 1+ (Negative); RBC Urine Automated 0-4 /hpf (0-4); Specific Gravity Urine 1.013 (1.000-1.030); Urobilinogen Urine Negative (Negative); pH Urine 5.5 (4.5-7.5)
[2023-11-27] MEDS: SODIUM CHLORIDE 0.9% 1,000 ML IV SCH (08:53)
[2023-11-27] MEDS: SODIUM CHLORIDE 0.9% 500 ML IV ONE (08:54)
[2023-11-27] MEDS: methylPREDNISolone 125 MG/2 ML VIAL IV STA (08:54)
[2023-11-27] MEDS: CEFEPIME 2,000 MG/20 ML VIAL IV STA (08:57)
--- NOTE | 2023-11-27 09:46 | History & Physical Report ---
Date of Service November 27, 2023 Assessment & Plan (1) Atrial fibrillation with RVR: Plan: This is a 62 y/o male with history of stage IV non-small cell lung cancer s/p chemo and radiation, now on immunotherapy, COPD, prior smoker, hx MRSA bacteremia, hx necrotizing pneumonia, chronic hepatitis C, diet-controlled DM2, and other history as outlined below who presented to the ED via EMS with racing heart and trouble breathing, found to have new onset afib with RVR in the field. Work-up also consistent with sepsis, likely due to pneumonia related to obstruction from known lung cancer. - Admit to PCU - Diltiazem gtt started in the ED and being titrated per protocol - Consult cardiology for additional recommendations - Heparin gtt while inpatient - will need to determine if appropriate to continue anticoagulation at discharge for stroke prevention - Follow Is and Os (2) Acute hypoxic respiratory failure: Plan: Pt initially put on BiPAP by EMS due to hypoxia and increased work of breathing - clinically improved. Will check ABG and pending results, attempt to transition to O2 via NC. (3) Sepsis: Plan: Broad-spectrum antibiotic coverage started in the ED with Zosyn and Vanco. Pt has a history of MRSA bacteremia so will continue the Vanco. He is at risk for gram-negative infection so will broaden to include coverage for Pseudomonas with meropenem and one dose of levofloxacin. Blood cultures pending. (4) Pneumonia: Plan: Post-obstructive due to known malignancy On broad-spectrum antibiotics due to sepsis Consult pulmonology for any additional recommendations (5) Hypotension: Plan: BP has responded to 500 cc NSS bolus x 2 in the ED Continue to monitor closely (6) Metastatic primary lung cancer: Plan: Pt currently following with Dr. Lazaro for oncology and is on immunotherapy (7) Hyponatremia: Plan: Follow labs after fluid resuscitation (8) Hepatitis C: Plan: Chronic, stable. Plan Pt seen and reviewed with collaborating physician, Dr. Mcmullen. Plan of care discussed and as outlined above. Code Status: Full code but no prolonged measures per patient DVT Prophylaxis: on heparin gtt Duglas Orellana PA-C History of Present Illness Chief Complaint: racing heart and trouble breathing that started this morning Primary Care Provider: Wood Genao MD This is a 62 y/o male with history of stage IV non-small cell lung cancer s/p chemo and radiation, now on immunotherapy, COPD, prior smoker, hx MRSA bacteremia, hx necrotizing pneumonia, chronic hepatitis C, diet-controlled DM2, and other history as outlined below who presented to the ED via EMS with racing heart and trouble breathing, found to have new onset afib with RVR in the field. He notes that over the last 2-3 days, he has had some increase in chronic cough and sputum production. Appetite has also been worse than usual. [place] around his baseline when he went to bed last night. This morning, he got up to eat breakfast and about twenty minutes later, he became very diaphoretic, pale, lightheaded with a sensation that his heart was racing. He also became short of breath. Denies chest pain, nausea, vomiting, headache. When EMS arrived, pt was hypoxic in the upper 80s with significant work of breathing so BiPAP was initiated with improvement. He was found to be in afib with a rate of the 160s so he was given diltiazem en route. His noted new peripheral edema overnight so pt was given Lasix pre-hospital as well. Currently, his breathing feels improved on the BiPAP and he is asking when it can be discontinued. He denies chest pain. Palpitations are improving. Pt was originally diagnosed with stage IIIC non-small cell lung cancer of [place] in Oct 2022. Underwent chemo + radiation, followed by initiation of maintenance durvulumab in February 2023. However, he was admitted later February 2023 for bilateral pneumonia and MRSA bacteremia requiring removal of mediport. Admitted again March 2023 for left-sided cavitary lung lesion and leukocytosis. Treatment with Vanco/Zosyn followed by additional week of Augmentin an voriconazole. Pt has been following with Dr. Pierson for management although he did see Dr. Deutsch once in May 2023, now following with Dr. Lazaro. Durvalumab was restarted but per patient he is changing to a new regimen shortly. He also notes recently being told that his cancer is stage IV. Allergies Allergy/AdvReac Type Severity Reaction Status Date / Time No Known Allergies Allergy Verified 11/17/23 09:19 Home Medications Medication Instructions Recorded Confirmed Type albuterol sulfate 90 mcg/actuation 2 puff inhalation Q4 PRN Wheezing 10/29/22 11/27/23 History aerosol inhaler ibuprofen 200 mg tablet 200 mg PO TID PRN Pain 03/19/23 11/27/23 History ipratropium 0.5 mg-albuterol 3 mg 3 ml inhalation QID Wheezing 05/08/23 11/27/23 History (2.5 mg base)/3 mL nebulization soln oxycodone 5 mg tablet 5 mg PO Q8H PRN Pain 05/08/23 11/27/23 History multivitamin 1 tab PO QAM 10/26/23 11/27/23 History albuterol sulfate 2.5 mg/3 mL 2.5 mg inhalation Q4H PRN 11/27/23 11/27/23 History (0.083 %) solution for nebulization Shortness Of Breath Or Wheezing docusate sodium 100 mg tablet 100 mg PO BID PRN Constipation 11/27/23 11/27/23 History guaifenesin 600 mg tablet, 600 mg PO Q12H PRN Cough 11/27/23 11/27/23 History extended release 12 hr ketorolac 0.5 % eye drops See Rx Instructions .Route .COMPLEX 11/27/23 11/27/23 History moxifloxacin 0.5 % eye drops See Rx Instructions .Route .COMPLEX 11/27/23 11/27/23 History prednisolone acetate 1 % eye See Rx Instructions .Route .COMPLEX 11/27/23 11/27/23 History drops,suspension Past Med/Surg History Medical History Medical cannabis use Hx MRSA infection 02/2023, hospitalized at [facility] w/bacteremia of port site>MRSA cellulitis/radiation dermatitis of the left upper chest. Arthritis History of COVID-19 08/2023, home and PCP test, not hosp; flu type symptoms>resolved Nutrition disorder Cavitary pneumonia march through may 2023, kept getting this off and on; f/u pulmonary mnpg Metastatic primary lung cancer Dx'd 10/14/2022, chemo and xrt tx (completed spring 2022). [facility] for infusions q2wk>currently having maintenance tx every other week, next tx 10/27/23 BPH (benign prostatic hyperplasia) Weakness still has ongoing maintenance tx for lung cancer (every other week as of 10/2023) History of recent hospitalization 02/2023 [facility] - MRSA bacteremia secondary to port infection, bilateral lobe pneumonia, MRSA cellulitis/radiation dermatitis of the left upper chest. History of chest pain dx 10/2022, had cp-"dr felt it may be due to tumor loaction at entry of lungs, had wanted to place a stent but was unable" History of influenza OCT 2022 History of vascular access device removed History of fracture of orbit HX RIGHT ORBITAL FX...SX/TITANIUM IMPLANT Osteoporosis Ruptured intervertebral disc hx History of fractured vertebra "years ago" DM type 2 (diabetes mellitus, type 2) pt told he was borderline "for the last 12 years"; Ex-smoker Frequent urination ongoing issue Hepatitis C Active Surgical History Hx of right cataract extraction History of open reduction and internal fixation (ORIF) procedure rt orbital fx-hardware intact History of bronchoscopy H/O eye surgery 1996 History of tonsillectomy and adenoidectomy 1972 H/O knee surgery 1999 Family History Brother Stomach cancer Grandfather (Maternal) Prostate cancer Grandfather (Paternal) Colon cancer Father Heart disease Grandfather Stroke Social History Smoking Status: Former smoker Tobacco Type: Cigarettes packs per day: 1.5; Second Hand Exposure: Yes (as a child); Do You Dip or Chew Tobacco: No; Hx Alcohol Use: No Hx Substance Use: Yes (med marajuana card) Non-Prescribed Medications: Marijuana and Methamphetamines Substance Use Type Other:: used methamphetamine and marijuana in the "80's" Preferred Language: Luxembourgish Communication Ability: Effective Visual Impairment: No Limitations Hearing Ability: Normal Renewable Energy Trader Required: No Beliefs That Will Affect Care: None Current Living Situation: Significant Other 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 current occupational status: disabled Feels Safe at Home: Yes Diet: diabetic during the past year weight has: decreased > 10 lbs Assistive Devices: Glasses and Nebulizer Review of Systems Review of Systems: All systems reviewed & are unremarkable except as noted in HPI & below Constitutional: + sweats, + fatigue and + anorexia; no f ever Eyes: no diplopia and no worsening vision Respiratory: + cough and + dyspnea Cardiovascular: + palpitations, + lightheadedness and + edema; no chest pain and no syncope Gastrointestinal: no nausea, no vomiting and no diarrhea/loose stools Genitourinary: no dysuria or no hematuria Integumentary: no yellowing of the skin Neurologic: + dizziness; no seizure-like activity an d no headache(s) Physical Exam Physical Exam: General: thin, frail-appearing but not in acute distress, answers questions appropriately HEENT: no scleral icterus, slightly dry oral mucosa Neck: trachea midline Heart: irregularly irregular at a rate in the 120s Lungs: markedly diminished to no breath sounds on the left, clear BS on the right Abdomen: soft, NT, +BS Extremities: trace pedal edema, distal pulses intact and equal Skin: no jaundice Neurologic: oriented x 3, moving all extremities, no dysarthria Results & Data Results & Data Vital Signs (Past 12 Hours) Vital Signs Pulse Pulse Resp BP Pulse Ox O2 Del Method FiO2 11/27/23 08:30 100/70 11/27/23 08:30 128 H 23 98 11/27/23 08:25 93/59 L 11/27/23 08:25 122 H 22 98 11/27/23 08:20 130 H 26 H 99 11/27/23 08:20 122/74 11/27/23 08:15 99/76 L 11/27/23 08:15 142 H 24 99 11/27/23 08:10 99/73 L 11/27/23 08:10 146 H 24 99 11/27/23 08:09 152 H 11/27/23 08:05 90/59 L 11/27/23 08:05 150 H 23 98 11/27/23 08:00 87/61 L 11/27/23 08:00 162 H 23 95 11/27/23 07:59 156 H 11/27/23 07:55 90 11/27/23 07:55 98/66 L 11/27/23 07:50 167 H 24 11/27/23 07:49 98 CPAP 11/27/23 07:49 CPAP 11/27/23 07:44 158 H 28 H 98 40 11/27/23 07:44 154 H 28 H 98 BiPAP 40 11/27/23 07:43 98 CPAP 11/27/23 07:43 159 H 13 106/80 98 CPAP 11/27/23 07:40 165 H 28 H 96 Laboratory Results Laboratory Results - last 24 hr 11/27/23 11/27/23 07:45 08:20 WBC 21.20 H RBC 4.54 L Hgb 10.9 L Hct 36.7 L MCV 80.8 MCH 24.0 L MCHC 29.7 L RDW Std Deviation 43.8 RDW Coeff of Mathieu 15.0 H Plt Count 398 MPV 9.5 Immature Gran % (Auto) 0.9 Neut % (Auto) 88.9 Lymph % (Auto) 3.2 [place] % (Auto) 6.5 Eos % (Auto) 0.1 Baso % (Auto) 0.4 Neut # (Auto) 18.85 H Lymph # (Auto) 0.[address] [place] # (Auto) 1.38 H Eos # (Auto) 0.02 Baso # (Auto) 0.08 Immature Gran # (Auto) 0.19 PT 14.1 H INR 1.3 H APTT 32 H PTT Ratio 1.1 Sodium 128 L Potassium 4.0 Chloride 93 L Carbon Dioxide 24 Anion Gap 11 BUN 24 H Creatinine 0.82 Est Cr Clr Drug Dosing Not Reportable Est GFR ( Amer) 109.8 Est GFR (Non-Af Amer) 94.8 BUN/Creatinine Ratio 29.3 H Glucose 200 H Calcium 9.4 Magnesium 2.0 Total Bilirubin 0.6 AST 39 ALT 48 Alkaline Phosphatase 213 H Troponin I High Sens 15.7 Total Protein 7.3 Albumin 3.3 L Globulin 4.0 Albumin/Globulin Ratio 0.8 L Urine Color Yellow Urine Appearance Clear Urine pH 5.5 Ur Specific [place] 1.013 Urine Protein 1+ H Urine Glucose (UA) Negative Urine Ketones Negative Urine Blood Negative Urine Nitrite Negative Urine Bilirubin Negative Urine Urobilinogen Negative Ur Leukocyte Esterase Negative Urine WBC (Auto) 1-5 Urine RBC (Auto) 0-4 U Hyaline Cast (Auto) 5-10 H U Epithel Cells (Auto) 0-5 Urine Bacteria (Auto) Negative Diagnostic Findings Chest X-Ray 11/27/23 07:43 XR chest 1V portable CLINICAL HISTORY: Dyspnea. Lung cancer. COMPARISON STUDY: Chest radiograph March 24, 2023. Chest CT October 23, 2023. FINDINGS: There is no pneumothorax. A left pleural effusion is present. Size is difficult to assess by radiography. Near-complete opacification of the left lung has slightly decreased since prior exam with volume loss. There is minimal aeration of the left upper lobe. Several right lung nodules measure up to 9 mm. There is mild interstitial thickening within the right lung. No consolidation within the right lung. IMPRESSION: 1. Near complete opacification of the left lung, slightly decreased since prior exam. Minimal aeration of the left upper lobe. Associated left lung volume loss. Left pleural effusion. 2. Right lung nodules consistent with metastases. 3. Subtle interstitial thickening within the right lung. This may reflect mild interstitial edema. ACT 112: Negative or not required by law. Electronically signed by: Jace Call M.D. 11/27/2023 8:14 AM Chest CTA 11/27/23 08:53 CT ANGIOGRAPHY OF THE CHEST, PULMONARY EMBOLUS PROTOCOL CLINICAL HISTORY: Shortness of breath. Lung cancer. COMPARISON STUDY: Chest CT October 23, 2023. Chest radiograph performed earlier today. TECHNIQUE: Following IV administration of 118 mL of Optiray, helical axial images of the chest were obtained utilizing the pulmonary embolus protocol. Maximal intensity projections and sagittal and coronal reformats were viewed on an independent 3D workstation. IV contrast was administered without complication. Automated exposure control was utilized for the study. A dose lowering technique was utilized adhering to the principles of ALARA. FINDINGS: No pulmonary emboli are identified. Occlusion of the left pulmonary artery by the left perihilar necrotic mass is again noted. This was shown on CT of October 23, 2023. This mass is obscured by adjacent atelectatic lung. The lesion measures approximately 7.5 x 5.6 cm, previously 6 x 4 cm. This results in occlusion of the left mainstem bronchus. The left bronchial tree is completely opacified. There is near complete opacification of the left lung, similar to prior exam. The volume of the opacified left lung has increased. This could reflect a drowned lung. A fluid and gas containing cavity within the left upper hemithorax measures 10 x 6.4 cm and has increased in size since prior exam. Mediastinal extension of the tumor has increased. Prominent mediastinal and left supraclavicular lymph nodes are similar to prior exam. A few right lung metastases are similar to prior exam, measuring up to 8 mm. Interlobular septal thickening within the right lung is present. Scattered alveolar opacities within the right lung are greatest within the right middle and right lower lobes. Right lower lobe bronchial wall thickening with secretions is noted. No suspicious lesions within the bony thorax. No significant abnormality within the visualized upper abdomen is identified. IMPRESSION: 1. No pulmonary emboli identified. 2. Increase in size of the left perihilar necrotic mass. This likely reflects the primary lesion with disease progression. Increase in mediastinal extension. As before, this mass results in occlusion of the left mainstem bronchus with near complete opacification of the left lung. Increase in size of a 10 x 6.4 cm fluid and gas containing cavity within the left hemithorax. 3. Moderate left pleural effusion, similar to prior exam. 4. No significant change in mediastinal and left supraclavicular lymphadenopathy and several right lung metastases. 5. Interlobular septal thickening within the right lung consistent with interstitial edema. 6. Alveolar opacities within the right lung could reflect alveolar pulmonary edema or a superimposed infectious process. Bronchial wall thickening and secretions within the right lower lobe. ACT 112: Negative or not required by law. Electronically signed by: Jace Call M.D. 11/27/2023 10:42 AM Medications Administered Diltiazem HCl 125 mg/ Dextrose 125 mls @ 5 mls/hr IV .Q24H VARUN; Protocol Stop: 12/27/23 07:44 Last Admin: 11/27/23 08:14 Dose: 5 mg/hr, 5 mls/hr Documented By: TERA Co-signed By: AM Sodium Chloride (Nss) 1,000 mls @ 125 mls/hr IV .Q8H VARUN Stop: 12/27/23 08:44 Last Admin: 11/27/23 08:53 Dose: 125 mls/hr Documented By: TERA Discontinued Medications Albuterol (Albut/Ipratrop 3mg/0.5mg Neb 3 Ml Vial) 3 ml NEB NOW STA; Protocol Stop: 11/27/23 07:43 Last Admin: 11/27/23 07:43 Dose: 3 ml Documented By: WENDY Albuterol (Albut/Ipratrop 3mg/0.5mg Neb 3 Ml Vial) 3 ml INH NOW STA Stop: 11/27/23 07:44 Last Admin: 11/27/23 08:14 Dose: Not Given Documented By: WENDY Diltiazem HCl (Diltiazem Hcl 5 Mg/Ml 5 Ml Vial) 10 mg IV NOW STA Stop: 11/27/23 07:39 Last Admin: 11/27/23 08:09 Dose: 10 mg Documented By: TERA Co-signed By: AM Digoxin 500 mcg/ Syringe 10 mls @ 2 mls/min IV NOW Stop: 11/27/23 07:42 Last Admin: 11/27/23 07:59 Dose: 2 mls/min Documented By: TERA Cefepime HCl (Maxipime) 2,000 mg in 20 mls @ 5 mls/min IV NOW STA; Protocol Stop: 11/27/23 08:30 Last Admin: 11/27/23 08:57 Dose: 5 mls/min Documented By: TERA Sodium Chloride (Nss) 500 mls @ 999 mls/hr IV .Q31M ONE Stop: 11/27/23 09:01 Last Admin: 11/27/23 08:54 Dose: 999 mls/hr Documented By: TEAR Methylprednisolone (Methylprednisolone 125 Mg/2 Ml Vial) 60 mg IV NOW STA Stop: 11/27/23 07:44 Last Admin: 11/27/23 08:54 Dose: 60 mg Documented By: TERA Miscellaneous (Stat Iv Infusion Titration Per Protocol) 1 each N/A NOW STA Stop: 11/27/23 07:39 Last Admin: 11/27/23 08:18 Dose: Not Given Documented By: AM Supervising Physician Co-Signing Physician Notes I have seen and examined the patient and have discussed the case with the provider above. I have reviewed the advanced practitioner's documentation, and I agree with, and take responsibility for that plan of care. 62-year-old man with a history of lung cancer and known left-sided cavitary lesion for the last year presents with worsening shortness of breath, hypoxia and new onset rapid atrial fibrillation. He has a history of diet-controlled diabetes, known history of squamous cell carcinoma of the left lung and chronic hepatitis C presents for worsening shortness of breath found to have cavitary pneumonia and sepsis. He has new onset atrial fibrillation with rapid ventricular response. Prehospital he was placed on CPAP with oxygen support for increased work of breathing and an oxygen saturation of 88% on room air. He was also given Lasix and Cardizem prehospital. On arrival heart rate was 140-160bpm and rhythm was afib. He received an albuterol neb and was placed on a diltiazem drip. He became hypotensive and normal saline was started with intermittent boluses to keep his pressure up. He was administered methylprednisolone 60 mg IV and broad-spectrum antibiotics including vancomycin and cefepime. Blood pressure was responsive to fluid boluses. During my interaction with him he reports feeling he is breathing better since the initial therapies. He has become ill in the past couple of days, worsening overnight. He admits to poor nutritional intake for the last year with ongoing weight loss noted. Other history as noted above. is at bedside and assist with history. On exam patient is still on CPAP and is mentating clearly. Systolic blood pressure is 108 that was recently taken. Heart rate is still elevated in the 120s. He is ill-appearing but able to sit up independently. He reports feeling somewhat better with his breathing. Pulmonary exam reveals diminished to no breath sounds on the left posterior lung almaguer with clear lungs to auscultation on the right posterior lung almaguer. No wheezing is auscultated. Cardiac exam reveals S1-S2 heard with no murmurs gallops or rubs with an irregular tachycardic rate and irregular rhythm. Abdomen is soft,NTND. There is no evidence of peripheral edema with very slight swelling in the feet noticed. No swelling in the lower extremities otherwise noticed. He is a thin framed man who appears undernourished. No gross focal neuromuscular deficits are noted. Workup includes a CBC with elevated white blood cell count of 21.2, evidence of anemia which is chronic per record review. H&H is 10.9/36.7. INR is 1.3. Sodium is slightly low at 128, anion gap is normal, BUN to creatinine ratio is elevated however creatinine reflects normal kidney function. Glucose is 200. Lactate is 1.6. Imaging includes a chest CT with contrast revealing no pulmonary emboli. There is an increase noted in the size of the left perihilar necrotic mass. Per reading, this likely reflects a primary lesion with disease progression. There is an increase in mediastinal extension and persistent occlusion of the left main mainstem bronchus with near complete opacification of the left lung. There is an increase in size of a 10cm x 6.4 cm fluid and gas containing cavity in the left hemithorax. A chronic left pleural effusion is seen similar to prior exam with no change in mediastinal and left supraclavicular lymphadenopathy and several right lung metastases. There is thickening in the right lung consistent with interstitial edema with alveolar opacities in the right lower lung that may reflect pulmonary edema or a superimposed infectious process. Clinical picture is consistent with sepsis secondary to pneumonia in this lung cancer patient on chronic immunotherapy. He has a known history of MRSA bacteremia 1 year ago and has an increased likelihood for gram-negative infection. As a result antibiotics were changed to include meropenem and 1 dose of Levaquin for double coverage of Pseudomonas in the next 24 hours. This may need to be continued if he is not improved but will be pending clinical i mprovement and culture results. Sputum culture was requested blood cultures are pending. Vancomycin is to be continued empirically given his history. His cardiac instability is secondary to new onset atrial fibrillation with rapid ventricular response. As systolic blood pressure allows heart rate control with diltiazem is being trialed. Heparin has been started for stroke prevention. Cardiology has been consulted for assistance with management of A-fib with RVR which is likely secondary to pulmonary infection and underlying chronic medical issues. INR, low albumin and sodium may be reflective of malnourished state with poor p.o. intake recently. Will continue oxygen support for acute respiratory failure secondary to pneumonia in the setting of obstructed bronchus from lung cancer. Patient and were updated at bedside. DO Benedict ADDENDUM: Called by RN around 4:45p that patient was tachycardic, diaphoretic and feeling short of breath. Upon arrival patient was diaphoretic and working to breathe somewhat. VSS included SBP in the 120s and HR was 140bpm, rhythm was afib. He was seen by cardiology who replaced the diltiazem with Lopressor and he had received an additional dose of Lasix 20mg IV prior to my arrival. Lungs exam is unchanged from prior with the exception of some possible mild crackles at the right base. Oxygen needs are increasing because of hypoxia and RN placed him on 6LPM via NC from 3LPM. BIPAP was ordered. Contacted cardiology grinder carbon plant who arrived at bedside to assist. We discussed the plan at bedside. Dredge Lever Operator agrees with BIPAP and ordered additional Lopressor 5mg IV now. He is also on a standing PO metoprolol order. After these were given HR trended down into the low 100s. The patient is also reporting some cancer related pain and requesting pain medication which was ordered in the form of IV APAP now and his home oxycodone as long as SBP will allow this. The patient verbalized feeling more comfortable on the BIPAP and agrees with continuing this for now. Will make NPO for the time being until breathing has stabilized more. sms (3) Sepsis Acute respiratory failure type: with hypoxia Sepsis acute organ dysfunction status: with acute organ dysfunction Sepsis type: sepsis due to unspecified organism Severe sepsis acute organ dysfunction type: acute respiratory failure Severe sepsis shock status: unspecified Qualified Code(s): A41.9 - Sepsis, unspecified organism; R65.20 - Severe sepsis without septic shock; J96.01 - Acute respiratory failure with hypoxia (4) Pneumonia Laterality: unspecified laterality Lung location: unspecified part of lung Pneumonia type: due to unspecified organism Qualified Code(s): J18.9 - Pneumonia, unspecified organism (5) Hypotension Hypotension type: unspecified hypotension type Qualified Code(s): I95.9 - Hypotension, unspecified (6) Metastatic primary lung cancer Laterality: left Qualified Code(s): C34.92 - Malignant neoplasm of unspecified part of left bronchus or lung (8) Hepatitis C Hepatic coma status: without hepatic coma Viral hepatitis chronicity: chronic Qualified Code(s): B18.2 - Chronic viral hepatitis C
[2023-11-27] MEDS: OPTIRAY 320 125ml IV ONE (10:14)
--- NOTE | 2023-11-27 10:44 | CT Scan Report ---
CT ANGIOGRAPHY OF THE CHEST, PULMONARY EMBOLUS PROTOCOL CLINICAL HISTORY: Shortness of breath. Lung cancer. COMPARISON STUDY: Chest CT October 23, 2023. Chest radiograph performed earlier today. TECHNIQUE: Following IV administration of 118 mL of Optiray, helical axial images of the chest were o btained utilizing the pulmonary embolus protocol. Maximal intensity projections and sagittal and cor onal reformats were viewed on an independent 3D workstation. IV contrast was administered without co mplication. Automated exposure control was utilized for the study. A dose lowering technique was ut ilized adhering to the principles of ALARA. FINDINGS: No pulmonary emboli are identified. Occlusion of the left pulmonary artery by the left per ihilar necrotic mass is again noted. This was shown on CT of October 23, 2023. This mass is obscured by adjacent atelectatic lung. The lesion measures approximately 7.5 x 5.6 cm, previously 6 x 4 cm. Th is results in occlusion of the left mainstem bronchus. The left bronchial tree is completely opacifie d. There is near complete opacification of the left lung, similar to prior exam. The volume of the op acified left lung has increased. This could reflect a drowned lung. A fluid and gas containing cavity within the left upper hemithorax measures 10 x 6.4 cm and has increased in size since prior exam. Me diastinal extension of the tumor has increased. Prominent mediastinal and left supraclavicular lymph nodes are similar to prior exam. A few right lung metastases are similar to prior exam, measuring up to 8 mm. Interlobular septal thickening within the right lung is present. Scattered alveolar opacitie s within the right lung are greatest within the right middle and right lower lobes. Right lower lobe bronchial wall thickening with secretions is noted. No suspicious lesions within the bony thorax. No significant abnormality within the visualized upper abdomen is identified. IMPRESSION: 1. No pulmonary emboli identified. 2. Increase in size of the left perihilar necrotic mass. This likely reflects the primary lesion with disease progression. Increase in mediastinal extension. As before, this mass results in occlusion of the left mainstem bronchus with near complete opacification of the left lung. Increase in size of a 10 x 6.4 cm fluid and gas containing cavity within the left hemithorax. 3. Moderate left pleural effusion, similar to prior exam. 4. No significant change in mediastinal and left supraclavicular lymphadenopathy and several right millicent ng metastases. 5. Interlobular septal thickening within the right lung consistent with interstitial edema. 6. Alveolar opacities within the right lung could reflect alveolar pulmonary edema or a superimposed infectious process. Bronchial wall thickening and secretions within the right lower lobe. ACT 112: Negative or not required by law. Electronically signed by: Jace Call M.D. 11/27/2023 10:42 AM
[2023-11-27] MEDS: VANCOMYCIN HCL 1,000 MG in SODIUM CHLORIDE 0.9% 500 ML IV ONE (10:55)
[2023-11-27 11:11] LABS: Adenovirus PCR Not Detected (NotDetected); Bordetella parapertussis PCR Not Detected (NotDetected); Bordetella pertussis PCR Not Detected (NotDetected); Chlamydia pneumoniae PCR Not Detected (NotDetected); Coronavirus 229E PCR Not Detected (NotDetected); Coronavirus CoV-2 (COVID19)PCR Not Detected (NotDetected); Coronavirus HKU1 PCR Not Detected (NotDetected); Coronavirus NL63 PCR Not Detected (NotDetected); Coronavirus OC43PCR Not Detected (NotDetected); Human Metapneumovirus PCR Not Detected (NotDetected); Influenza A PCR Not Detected (NotDetected); Influenza B PCR Not Detected (NotDetected); Mycoplasma pneumoniae PCR Not Detected (NotDetected); Parainfluenza Virus 1 PCR Not Detected (NotDetected); Parainfluenza Virus 2 PCR Not Detected (NotDetected); Parainfluenza Virus 3 PCR Not Detected (NotDetected); Parainfluenza Virus 4 PCR Not Detected (NotDetected); Respiratory Syncytial VirusPCR Not Detected (NotDetected); Rhinovirus/Enterovirus PCR Not Detected (NotDetected)
[2023-11-27] MEDS ORDERED: PIPERACILLIN/TAZOBACTAM 4.5 GM/100 ML BAG IV STA (11:20)
[2023-11-27] MEDS ORDERED: Heparin IV Adult Wt-Based Low-Dose w/ INITIAL Bolus Protocol IV STA (11:45)
[2023-11-27] MEDS ORDERED: Heparin IV Adult Wt-Based Standard w/ INITIAL Bolus Protocol IV STA (11:45)
--- NOTE | 2023-11-27 12:11 | Electrocardiogram Report ---
Test Reason : Blood Pressure : / mmHG Vent. Rate : 157 BPM Atrial Rate : 000 BPM P-R Int : 000 ms QRS Dur : 080 ms QT Int : 302 ms P-R-T Axes : 000 048 265 degrees QTc Int : 488 ms Atrial fibrillation with rapid ventricular response Nonspecific ST and T wave abnormality Abnormal ECG When compared with ECG of 19-MAR-2023 11:38, Atrial fibrillation has replaced Sinus rhythm ST now depressed in Anterior leads Nonspecific T wave abnormality now evident in Inferior leads Confirmed by Jordan Chen ([id number]) on 11/27/2023 12:11:26 PM Referred By: Confirmed By:Jordan Chen
--- NOTE | 2023-11-27 12:16 | Cardiology Consultation ---
Date of Consultation November 27, 2023 Assessment & Plan (1) Atrial fibrillation with RVR: (2) Acute hypoxic respiratory failure: (3) Squamous cell carcinoma of left lung: Plan IMPRESSION: Medically complex 62 year old male who presents to [facility] due to sudden onset of acute respiratory failure. Patient has known metastatic left lung cancer. Found to be in new onset AFIB RVR--highly symptomatic with shortness of breath, tachy-palpitations, and fluid retention. PLAN: AFIB RVR: AFIB rates/rhythm likely being driven by underlying pulmonary disease and acute hypoxic respiratory failure. 1. Given evidence of hypervolemia and hypotension, discontinued IV Diltazem. Will give x1 dose of IV Lopressor 5 mg and start patient on metoprolol tartrate 25 mg q6 hrs 2. Obtain resting echo to assess LVEF. 3. Stop IV fluids, may need to consider cautious IV diuresis. Strict I&O--- scott in place. 4. Okay to continue IV heparin for stroke prevention with AFIB while inpatient. 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 5. Hyponatremia possibly dilutional. Will need to maintain a potassium goal of 4.0 and mag goal of 2.0. Repeat BMP in the morning. 6. Supplemental o2/BiPAP as needed Metastatic left lung cancer: Patient is currently a full code. 1. Goals of care will need discussed. 2. Patient at high risk for infection given immunosuppressive therapy- Blood cultures pending. Case to be discussed with Dr. Macias-- further recommendations pending his assessment. I spent a total of 60 minutes on the date of service in preparation, delivery, and documentation of the care provided to the patient excluding any time spent in the performance of separately billed services. IHSAN Sinclair Department of Cardiology, [facility] This chart was completed in part utilizing Speech Voice Recognition Software. Grammatical errors, random word insertions, pronoun errors, and incomplete sentences are an occasional consequence of this system due to software limitations, ambient noise, and hardware issues. Any formal questions or concerns about the content, text, or information contained within the body of this dictation should be directly addressed to the provider for clarification. Supervising Physician Co-Signing Physician Notes Patient seen and examined, chart, medications, telemetry reviewed. Full assessment and plan as outlined by advanced provider, all recommendations as per our discussion Complex 62-year-old male who developed acute onset of tachypalpitations dyspnea and diaphoresis earlier this morning. Presented to the ER where he was found to be in atrial fibrillation with rapid response, marginal blood pressures. Initial heart rate remained elevated with lower blood pressures with IV dil tiazem Echocardiogram reviewed with preserved LV systolic function, EF 50-55% no significant valvular disease CT chest with necrotic left hilar mass left lung opacification question superimposed infection, left pleural effusion Physical examination patient comfortable, heart rate 108, blood pressure 101/70 Coarse crackles right lung field diminished breath sounds left lung field Cardiovascular irregularly irregular Impression: New onset atrial fibrillation patient with significant pulmonary pathology. Near complete opacification of left chest secondary to underlying malignancy Plan: As outlined will switch from diltiazem to IV and oral metoprolol for heart rate control. Currently compensated and tolerating well oxygenating on 4 L nasal cannula Single dose IV furosemide tonight given additional fluids received on presentation Anticoagulation initiated with IV heparin. Long-term management will be decided as clinical course presents Discussed in detail with patient History of Present Illness Reason for Consultation: New onset atrial fibrillation with RVR Requesting Physician: Nuzhat morales History of Present Illness 62-year-old male who presented to [facility] emergency department due sudden onset of shortness of breath, tachy-palpitations, lightheadedness and diaphoresis. EMS was summoned. Patient was hypoxic in the upper 80s and BiPAP was initiated. Does not normally require O2 or BiPAP at home. Patient was found to be in new onset atrial fibrillation with RVR--treated with IV diltiazem in the field as well as IV Lasix due to lower extremity edema. In the emergency room EKG revealed atrial fibrillation in the 160s. Was given IV digoxin and started on IV Diltazem gtt. Blood pressures were hypotensive and he was treated with normal saline-- per the family his blood pressures are normally 90/60s, this has been ongoing since his chemo treatments. Chest x-ray revealed complete opacification of the left lung with minimal aera tion of the left upper lobe as well as a left pleural effusion. Right lung nodules consistent with mets. Chest CTA showed no evidence of pulmonary emboli. There was an increase in the left lung consistent with a necrotic mass with mediastinal extension. Moderate left pleural effusion. Right lung interstitial edema. Lab work revealed leukocytosis with a white blood cell count of 21.2, mild anem ia with a hemoglobin of 10.9, platelets are stable. Renal function stable. Hyponatremia noted at 128. Potassium 4.0, mag 2.0. High-sensitivity troponin negative x1. Blood cultures pending Echo pending. Tele: AFIB 120-150s Upon entrance into the room patient resting in bed. Accompanied by his girlfriend. Notes significant improvement in his breathing since admission. Now requiring supplemental o2 therapy- sats mid 90s. Tachy palpitations resolved, but patient remains in AFIB RVR. No cardiac chest pain (has chronic chest wall pain from radiation). Notes a lack of appetite recently and has lost an upwards of 30 lbs over the last year. Denies any prior cardiac history. Former smoker, quit 2016. Quit alcohol 2022. Will use medical marijuana, none used today. Past medical history: Left upper lobe stage IV non-small cell lung cancer with mets, status post chemo and radiation therapy, on immunosuppressive therapy. Initially diagnosed 10/2022 COPD--Prior smoker History of necrotizing pneumonia Chronic hep C Type 2 diabetes, diet controlled Allergies Allergy/AdvReac Type Severity Reaction Status Date / Time No Known Allergies Allergy Verified 11/17/23 09:19 Home Medications Medication Instructions Recorded Confirmed Type albuterol sulfate 90 mcg/actuation 2 puff inhalation Q4 PRN Wheezing 10/29/22 11/27/23 History aerosol inhaler ibuprofen 200 mg tablet 200 mg PO TID PRN Pain 03/19/23 11/27/23 History ipratropium 0.5 mg-albuterol 3 mg 3 ml inhalation QID Wheezing 05/08/23 11/27/23 History (2.5 mg base)/3 mL nebulization soln oxycodone 5 mg tablet 5 mg PO Q8H PRN Pain 05/08/23 11/27/23 History multivitamin 1 tab PO QAM 10/26/23 11/27/23 History albuterol sulfate 2.5 mg/3 mL 2.5 mg inhalation Q4H PRN 11/27/23 11/27/23 History (0.083 %) solution for nebulization Shortness Of Breath Or Wheezing docusate sodium 100 mg tablet 100 mg PO BID PRN Constipation 11/27/23 11/27/23 History guaifenesin 600 mg tablet, 600 mg PO Q12H PRN Cough 11/27/23 11/27/23 History extended release 12 hr ketorolac 0.5 % eye drops See Rx Instructions .Route .COMPLEX 11/27/23 11/27/23 History moxifloxacin 0.5 % eye drops See Rx Instructions .Route .COMPLEX 11/27/23 11/27/23 History prednisolone acetate 1 % eye See Rx Instructions .Route .COMPLEX 11/27/23 11/27/23 History drops,suspension Patient History Medical History Medical cannabis use Hx MRSA infection 02/2023, hospitalized at [facility] w/bacteremia of port site>MRSA cellulitis/radiation dermatitis of the left upper chest. Arthritis History of COVID-19 08/2023, home and PCP test, not hosp; flu type symptoms>resolved Nutrition disorder Cavitary pneumonia march through may 2023, kept getting this off and on; f/u pulmonary mnpg Metastatic primary lung cancer Dx'd 10/14/2022, chemo and xrt tx (completed spring 2022). [facility] for infusions q2wk>currently having maintenance tx every other week, next tx 10/27/23 BPH (benign prostatic hyperplasia) Weakness still has ongoing maintenance tx for lung cancer (every other week as of 10/2023) History of recent hospitalization 02/2023 [facility] - MRSA bacteremia secondary to port infection, bilateral lobe pneumonia, MRSA cellulitis/radiation dermatitis of the left upper chest. History of chest pain dx 10/2022, had cp-"dr felt it may be due to tumor loaction at entry of lungs, had wanted to place a stent but was unable" History of influenza OCT 2022 History of vascular access device removed History of fracture of orbit HX RIGHT ORBITAL FX...SX/TITANIUM IMPLANT Osteoporosis Ruptured intervertebral disc hx History of fractured vertebra "years ago" DM type 2 (diabetes mellitus, type 2) pt told he was borderline "for the last 12 years"; Ex-smoker Frequent urination ongoing issue Hepatitis C Active Surgical History Hx of right cataract extraction History of open reduction and internal fixation (ORIF) procedure rt orbital fx-hardware intact History of bronchoscopy H/O eye surgery 1996 History of tonsillectomy and adenoidectomy 1973 H/O knee surgery 1999 Family History Brother Stomach cancer Grandfather (Maternal) Prostate cancer Grandfather (Paternal) Colon cancer Father Heart disease Grandfather Stroke Social History Smoking Status: Former smoker Tobacco Type: Cigarettes packs per day: 1.5; Second Hand Exposure: Yes (as a child); Do You Dip or Chew Tobacco: No; Hx Alcohol Use: No Hx Substance Use: Yes (DriverSideajuana card) Non-Prescribed Medications: Marijuana and Methamphetamines Substance Use Type Other:: used methamphetamine and marijuana in the "80's" Preferred Language: Bengali Communication Ability: Effective Visual Impairment: No Limitations Hearing Ability: Normal 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 Beliefs That Will Affect Care: None Current Living Situation: Significant Other 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 current occupational status: disabled Feels Safe at Home: Yes Diet: diabetic during the past year weight has: decreased > 10 lbs Assistive Devices: Glasses and Nebulizer Review of Systems Review of Systems: All systems reviewed & are unremarkable except as noted in HPI & below Physical Exam Constitutional: + ill appearing, + cachectic and + frail appearing; no acute distress Eyes: PERRL, conjunctivae normal, anicteric sclerae Neck: normal visual inspection and trachea midline Respiratory: + cough and able to speak in complete se ntences; no respiratory distress Auscultation: + rales, + rhonchi and + wheezes Cardiovascular: Rate/Rhythm: + tachycardic and + irregularly irregular Heart Sounds: normal S1, normal S2 (distant heart sounds.) and + murmur (unable to assess) Extremities: + pedal edema and + edema (+1-2 BLLE pitting edema ) Gastrointestinal (Abdomen): Percussion/Palpation: abdomen soft; abdomen nontender Skin: no rashes, warm and dry Psychiatric: Orientation: alert and oriented x 3 Results & Data Vital Signs (Past 12 Hours) Vital Signs Pulse Pulse Resp BP Pulse Ox O2 Del Method FiO2 11/27/23 11:45 129 H 20 100 11/27/23 11:45 95/67 L 11/27/23 11:40 131 H 25 H 98 11/27/23 11:32 131 H 21 11/27/23 11:32 108/71 02/16/24 11:32 108/71 11/27/23 11:30 134 H 21 11/27/23 11:20 120 H 21 99 11/27/23 11:15 96/67 L 11/27/23 11:15 126 H 21 100 11/27/23 11:10 120 H 20 95 11/27/23 11:05 92/72 L 11/27/23 11:05 124 H 18 98 11/27/23 11:00 128 H 19 95 11/27/23 11:00 81/62 L 11/27/23 10:50 124 H 20 11/27/23 10:45 91/66 L 11/27/23 10:45 124 H 20 11/27/23 10:40 131 H 14 11/27/23 10:30 90/66 L 11/27/23 10:30 133 H 24 11/27/23 10:20 132 H 24 98 40 11/27/23 10:20 123 H 24 100 11/27/23 10:19 85/56 L 11/27/23 10:19 125 H 20 98 11/27/23 10:18 100 11/27/23 09:56 133 H 25 H 11/27/23 09:56 87/66 L 11/27/23 09:50 88/60 L 11/27/23 09:50 134 H 22 99 11/27/23 09:45 136 H 23 100 11/27/23 09:45 86/63 L 11/27/23 09:41 133 H 22 100 11/27/23 09:41 92/64 L 11/27/23 09:40 130 H 20 99 11/27/23 09:36 133 H 24 99 11/27/23 09:36 85/65 L 11/27/23 09:30 80/61 L 11/27/23 09:30 131 H 21 100 11/27/23 09:25 140 H 30 H 100 11/27/23 09:25 89/66 L 11/27/23 09:20 144 H 23 98 11/27/23 09:15 127 H 22 98 11/27/23 09:15 88/65 L 11/27/23 09:10 117 H 22 97 11/27/23 09:05 136 H 21 99 11/27/23 09:05 89/73 L 11/27/23 09:00 88/66 L 11/27/23 09:00 128 H 26 H 99 11/27/23 08:55 101/60 11/27/23 08:55 132 H 21 98 11/27/23 08:53 88/67 L 11/27/23 08:53 132 H 24 99 11/27/23 08:50 85/69 L 11/27/23 08:50 132 H 24 97 11/27/23 08:45 94/68 L 11/27/23 08:45 137 H 18 94 11/27/23 08:40 102/74 11/27/23 08:40 134 H 25 H 98 11/27/23 08:35 126 H 25 H 100 11/27/23 08:35 91/65 L 11/27/23 08:30 100/70 11/27/23 08:30 128 H 23 98 11/27/23 08:25 93/59 L 11/27/23 08:25 122 H 22 98 11/27/23 08:20 130 H 26 H 99 11/27/23 08:20 122/74 11/27/23 08:15 99/76 L 11/27/23 08:15 142 H 24 99 11/27/23 08:10 99/73 L 11/27/23 08:10 146 H 24 99 11/27/23 08:09 152 H 11/27/23 08:05 90/59 L 11/27/23 08:05 150 H 23 98 11/27/23 08:00 87/61 L 11/27/23 08:00 162 H 23 95 11/27/23 07:59 156 H 11/27/23 07:55 90 11/27/23 07:55 98/66 L 11/27/23 07:50 167 H 24 11/27/23 07:49 98 CPAP 11/27/23 07:49 CPAP 11/27/23 07:44 158 H 28 H 98 40 11/27/23 07:44 154 H 28 H 98 BiPAP 40 11/27/23 07:43 98 CPAP 11/27/23 07:43 159 H 13 106/80 98 CPAP 11/27/23 07:40 165 H 28 H 96 Laboratory Results Cardiac Enzymes 11/27/23 Range/Units 07:45 AST 39 (13-39) U/L Troponin I High Sens 15.7 (0-20) pg/ml Coagulation 11/27/23 Range/Units 07:45 PT 14.1 H (9.0-12.0) Seconds APTT 32 H (21-31) Seconds CBC 11/27/23 Range/Units 07:45 WBC 21.20 H (4.8-10.8) K/ul RBC 4.54 L (4.70-6.10) M/uL Hgb 10.9 L (14.0-18.0) g/dl Hct 36.7 L (42.0-52.0) % Plt Count 398 (130-400) K/uL Neut # (Auto) 18.85 H (1.40-6.50) K/uL Lymph # (Auto) 0.68 L (1.20-3.40) K/uL [place] # (Auto) 1.38 H (0.11-0.59) K/uL Eos # (Auto) 0.02 (0.00-0.50) K/uL Baso # (Auto) 0.08 (0.00-0.20) K/uL Comprehensive Metabolic Panel 11/27/23 Range/Units 07:45 Sodium 128 L (136-145) mmol/L Potassium 4.0 (3.5-5.1) mmol/L Chloride 93 L (98-107) mmol/L Carbon Dioxide 24 (21-32) mmol/L BUN 24 H (6-23) mg/dl Creatinine 0.82 (0.6-1.4) mg/dl Glucose 200 H (70-99(Fasting)) mg/dl Calcium 9.4 (8.6-10.3) mg/dl AST 39 (13-39) U/L ALT 48 (7-52) U/L Alkaline Phosphatase 213 H (34-104) U/L Total Protein 7.3 (6.0-8.3) gm/dl Albumin 3.3 L (3.4-5.0) gm/dl Intake and Output 11/26/23 11/27/23 11/27/23 22:59 06:59 14:59 Intake Total 500 / 500 Balance 500 / 500 Intake: IV 500 / 500 Sodium Chloride 0.9% 500 ml @ 500 / 500 999 mls/hr IV .Q31M ONE Rx#: [id number] Other: Weight 52.6 kg Weight Measurement Method Built in [facility] Patient Weight 11/28/23 06:59 Weight 52.6 kg
[2023-11-27] MEDS: MEROPENEM 500 MG in SYRINGE 0 ML IV STA (12:18)
[2023-11-27] MEDS ORDERED: METOPROLOL TARTRATE 25 MG TAB PO SCH (13:00)
[2023-11-27] MEDS: HEPARIN SODIUM/DEXTROSE 25,000 UNITS/500 ML BAG IV SCH (13:06)
[2023-11-27] MEDS: METOPROLOL TARTRATE 1 MG/ML VIAL IV STA ×3 (13:13→21:46)
--- NOTE | 2023-11-27 13:25 | Pharmacy Report ---
Pharmacy PK ABX Note - Date of Service November 27, 2023 - Assessment and Plan Assessment 62 year old M started empirically on vancomycin and meropenem for possible pneumonia. PMHx significant for stage IV non-small cell lung cancer s/p chemo and radiation, now on immunotherapy, COPD, hx MRSA bacteremia, hx necrotizing pneumonia, chronic hepatitis C, DM2. Presenting to hospital with racing heart rate, found to have new onset afib. Also notes, increased cough/sputum over last few days. Day #1 of antimicrobial therapy. Plan Vancomycin * Loading dose: 1000 mg iv x 1 (given in ER) * Maintenance dose: 750 mg IV every 12 hours * Regimen is predicted to achieve target AUC/EFRA of 400-600 mg/L.hr * Plan to collect random vancomycin level if plan is to continue >48 hours Pharmacy will continue to follow and will adjust dose/frequency as necessary. Thank you. Pharmacy has transitioned to AUC monitoring for vancomycin. AUC/EFRA is the preferred PK/PD target and is associated with decreased risk of nephrotoxicity compared to traditional trough targets.
[2023-11-27] MEDS ORDERED: guaiFENesin 600 MG TABCR PO PRN (14:17)
[2023-11-27] MEDS ORDERED: DOCUSATE SODIUM 100 MG CAP PO PRN (14:21)
[2023-11-27] MEDS: HEPARIN IV BOLUS 3,000 UNITS in SYRINGE 0 ML IV ONE (14:22)
[2023-11-27] MEDS: METOPROLOL TARTRATE 25 MG TAB PO SCH (14:22)
[2023-11-27] MEDS: levoFLOXacin/D5W 750 MG/150 ML BAG IV ONE (14:22)
[2023-11-27] MEDS: HEPARIN SOD (PORCINE) 1000 UNIT/ML IV ONE (14:23)
[2023-11-27 15:00] LABS: ANTI-Xa, UFH(UnfractionatedHep < 0.10 IU/ml (0.3-0.7)
[2023-11-27 15:03] LABS: BUN Creatinine Ratio 36.1 (10-20); Calcium 8.9 mg/dl (8.6-10.3); Creatinine Clr Calc Pharmacy 93.4 ml/min; Potassium 3.5 mmol/L (3.5-5.1)
--- NOTE | 2023-11-27 15:23 | Emergency Department Note ---
Impression & Plan Postobstructive pneumonia, Lung cancer, Atrial fibrillation with RVR, Atrial fibrillation, new onset ED Provider Note CHIEF COMPLAINT: Shortness of breath HISTORY OF PRESENT ILLNESS: This 62-year-old male patient past medical history of lung cancer, anemia, diabetes, long-term smoking history, hepatitis C, BPH presents to the emergency department with complaints of worsening shortness of breath. Patient contacted EMS where he was found to be in rapid atrial fibrillation. Patient also required CPAP for respiratory support due to hypoxia and increased work of breathing. REVIEW OF SYSTEMS: A review of systems was performed with positives and pertinent negatives listed in the history of present illness. 10 systems were reviewed and are otherwise negative. ALLERGIES: see below MEDICATIONS: see below PMH: see below SOCIAL HISTORY: see below DDx: Dehydration, COPD, PE, pneumonia acute coronary syndrome, new onset atrial fibrillation, and CHF among others. PHYSICAL EXAM: Vital signs reviewed. General: Chronically ill-appearing 62-year-old male, thin and frail HEENT: No scleral icterus, PERRLA, neck supple. Moist mucous membranes. Cardiovascular: Rapid and irregular, no extra sounds Pulmonary: Coarse breath sounds to auscultation, diminished on the left. Increased work of breathing on BiPAP Abdomen: Soft, nontender, nondistended, positive bowel sounds. Musculoskeletal: Atraumatic, positive peripheral edema. Neurologic: Patient awake alert and oriented x 3, speech is clear Skin: Warm, dry, no rash EMERGENCY DEPARTMENT COURSE/MDM: This patient was evaluated and appeared to be in no significant distress. Patient is noted to be in a rapid atrial fibrillation. He was given 20 mg of IV Cardizem in route by EMS under my medical command. Patient was on BiPAP and fairly stable from a respiratory standpoint on my evaluation. Upon review of the patient's records, he does have left lung collapse due to a left perihilar mass. Left-sided pleural effusion is noted. Chest x-ray was performed and reveals very similar findings. IV access was obtained and laboratory work was drawn. A Cardizem drip with 10 mg bolus was administered. Due to low blood pressures, IV digoxin 500 mcg was administered. Patient did require IV fluids for blood pressure support. He was given 2 -500 mL boluses of normal saline solution. Patient was given IV cefepime 2 g and IV vancomycin. A DuoNeb treatment and IV Solu-Medrol was administered. Patient case was discussed with the hospitalist service who will evaluate the patient for admission and further management. MONITORING: An order for cardiac monitoring was placed and the patient is noted to be in a rapid atrial fibrillation 156 beats per minute. RADIOLOGY: Chest x-ray to my interpretation reveals near complete lung consolidation and effusion on the left. Please see radiology's report for final read. CT angiogram of the chest per radiology IMPRESSION: 1. No pulmonary emboli identified. 2. Increase in size of the left perihilar necrotic mass. This likely reflects the primary lesion with disease progression. Increase in mediastinal extension. As before, this mass results in occlusion of the left mainstem bronchus with near complete opacification of the left lung. Increase in size of a 10 x 6.4 cm fluid and gas containing cavity within the left hemithorax. 3. Moderate left pleural effusion, similar to prior exam. 4. No significant change in mediastinal and left supraclavicular lymphadenopathy and several right lung metastases. 5. Interlobular septal thickening within the right lung consistent with interstitial edema. 6. Alveolar opacities within the right lung could reflect alveolar pulmonary edema or a superimposed infectious process. Bronchial wall thickening and secretions within the right lower lobe. EKG: To my interpretation reveals atrial fibrillation with RVR at [address] and T wave changes. QTc of 488. When compared to previous dated March 19, 2023, atrial fibrillation is new. DISPOSITION: Admission I have personally spent greater than 45 minutes of critical care time in the direct management of this patient. This includes bedside care, interpretation of diagnostic studies, and testing, discussion with consultants, patient, and family members, and other required patient management activities. This 45 minutes is in excess of all separately billable procedures. Past Med/Surg History Medical History Medical cannabis use Hx MRSA infection 02/2023, [place] [facility] [place]MRSA cellulitis/radiation dermatitis of the left upper chest. Arthritis History of COVID-19 08/2023, home and PCP test, not hosp; flu type symptoms>resolved Nutrition disorder Cavitary pneumonia march through may 2023, kept getting this off and on; f/u pulmonary mnpg Metastatic primary lung cancer Dx'd 10/14/2022, chemo and xrt tx (completed spring 2022). [facility] for infusions q2wk>currently having maintenance tx every other week, next tx 10/27/23 BPH (benign prostatic hyperplasia) Weakness still has ongoing maintenance tx for lung cancer (every other week as of 10/2023) History of recent hospitalization 02/2023 [facility] - MRSA bacteremia secondary to port infection, bilateral lobe pneumonia, MRSA cellulitis/radiation dermatitis of the left upper chest. History of chest pain dx 10/2022, had cp-"dr felt it may be due to tumor loaction at entry of lungs, had wanted to place a stent but was unable" History of influenza OCT 2022 History of vascular access device removed History of fracture of orbit HX RIGHT ORBITAL FX...SX/TITANIUM IMPLANT Osteoporosis Ruptured intervertebral disc hx History of fractured vertebra "years ago" DM type 2 (diabetes mellitus, type 2) pt told he was borderline "for the last 12 years"; Ex-smoker Frequent urination ongoing issue Hepatitis C Active Surgical History Hx of right cataract extraction History of open reduction and internal fixation (ORIF) procedure rt orbital fx-hardware intact History of bronchoscopy H/O eye surgery 1996 History of tonsillectomy and adenoidectomy 1972 H/O knee surgery 1999 Family History Brother Stomach cancer Grandfather (Maternal) Prostate cancer Grandfather (Paternal) Colon cancer Father Heart disease Grandfather Stroke Social History Smoking Status: Former smoker Tobacco Type: Cigarettes packs per day: 1.5; Second Hand Exposure: Yes (as a child); Do You Dip or Chew Tobacco: No; Hx Alcohol Use: No Hx Substance Use: Yes (med marajuana card) Non-Prescribed Medications: Marijuana and Methamphetamines Substance Use Type Other:: used methamphetamine and marijuana in the "80's" Preferred Language: Amharic Communication Ability: Effective Visual Impairment: No Limitations Hearing Ability: Normal Sound Recordist Required: No Beliefs That Will Affect Care: None Current Living Situation: Significant Other 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 current occupational status: disabled Feels Safe at Home: Yes Diet: diabetic during the past year weight has: decreased > 10 lbs Assistive Devices: Glasses and Nebulizer Allergies Allergies Allergy/AdvReac Type Severity Reaction Status Date / Time No Known Allergies Allergy Verified 11/17/23 09:19 Home Meds Home Medications Medication Instructions Recorded Confirmed albuterol sulfate 90 mcg/actuation 2 puff inhalation Q4 PRN Wheezing 10/29/22 11/27/23 aerosol inhaler ibuprofen 200 mg tablet 200 mg PO TID PRN Pain 03/19/23 11/27/23 ipratropium 0.5 mg-albuterol 3 mg 3 ml inhalation QID Wheezing 05/08/23 11/27/23 (2.5 mg base)/3 mL nebulization soln oxycodone 5 mg tablet 5 mg PO Q8H PRN Pain 05/08/23 11/27/23 multivitamin 1 tab PO QAM 10/26/23 11/27/23 albuterol sulfate 2.5 mg/3 mL 2.5 mg inhalation Q4H PRN 11/27/23 11/27/23 (0.083 %) solution for nebulization Shortness Of Breath Or Wheezing docusate sodium 100 mg tablet 100 mg PO BID PRN Constipation 11/27/23 11/27/23 guaifenesin 600 mg tablet, 600 mg PO Q12H PRN Cough 11/27/23 11/27/23 extended release 12 hr ketorolac 0.5 % eye drops See Rx Instructions .Route .COMPLEX 11/27/23 11/27/23 moxifloxacin 0.5 % eye drops See Rx Instructions .Route .COMPLEX 11/27/23 11/27/23 prednisolone acetate 1 % eye See Rx Instructions .Route .COMPLEX 11/27/23 11/27/23 drops,suspension Results & Data (ED) Vital Signs Vital Signs - 24 hr 11/27/23 07:40 11/27/23 07:43 11/27/23 07:43 Pulse Rate 165 H 159 H Pulse Rate [Apical] Pulse Rate from SpO2 Sensor 162 H Respiratory Rate 28 H 13 Respiratory Effort / Characteristics Respiratory Depth Shallow Respiratory Pattern Blood Pressure 106/80 Blood Pressure Mean 88 Pulse Oximetry 96 98 98 Oxygen Delivery Method CPAP CPAP Fraction of Inspired Oxygen Sepsis Recent Fever Within 48 Hours No Sepsis New/Unexplained Change in Mental Status N/A Sepsis Action Taken by Nursing No Action Required 11/27/23 07:44 11/27/23 07:44 11/27/23 07:49 Pulse Rate 158 H Pulse Rate [Apical] 154 H Pulse Rate from SpO2 Sensor Respiratory Rate 28 H 28 H Respiratory Effort / Characteristics Spontaneous Spontaneous Spontaneous Respiratory Depth Shallow Respiratory Pattern Tachypnea Blood Pressure Blood Pressure Mean Pulse Oximetry 98 98 Oxygen Delivery Method BiPAP CPAP Fraction of Inspired Oxygen 40 40 Sepsis Recent Fever Within 48 Hours Sepsis New/Unexplained Change in Mental Status Sepsis Action Taken by Nursing 11/27/23 07:49 11/27/23 07:50 11/27/23 07:55 Pulse Rate 167 H Pulse Rate [Apical] Pulse Rate from SpO2 Sensor Respiratory Rate 24 Respiratory Effort / Characteristics Respiratory Depth Respiratory Pattern Blood Pressure 98/66 L Blood Pressure Mean 90 Pulse Oximetry 98 Oxygen Delivery Method CPAP Fraction of Inspired Oxygen Sepsis Recent Fever Within 48 Hours Sepsis New/Unexplained Change in Mental Status Sepsis Action Taken by Nursing 11/27/23 07:55 11/27/23 07:59 11/27/23 08:00 Pulse Rate 156 H 162 H Pulse Rate [Apical] Pulse Rate from SpO2 Sensor 156 H 141 H Respiratory Rate 23 Respiratory Effort / Characteristics Respiratory Depth Respiratory Pattern Blood Pressure Blood Pressure Mean Pulse Oximetry 90 95 Oxygen Delivery Method Fraction of Inspired Oxygen Sepsis Recent Fever Within 48 Hours Sepsis New/Unexplained Change in Mental Status Sepsis Action Taken by Nursing 11/27/23 08:00 11/27/23 08:05 11/27/23 08:05 Pulse Rate 150 H Pulse Rate [Apical] Pulse Rate from SpO2 Sensor 140 H Respiratory Rate 23 Respiratory Effort / Characteristics Respiratory Depth Respiratory Pattern Blood Pressure 87/61 L 90/59 L Blood Pressure Mean 75 70 Pulse Oximetry 98 Oxygen Delivery Method Fraction of Inspired Oxygen Sepsis Recent Fever Within 48 Hours Sepsis New/Unexplained Change in Mental Status Sepsis Action Taken by Nursing 11/27/23 08:09 11/27/23 08:10 11/27/23 08:10 Pulse Rate 152 H 146 H Pulse Rate [Apical] Pulse Rate from SpO2 Sensor 144 H Respiratory Rate 24 Respiratory Effort / Characteristics Respiratory Depth Respiratory Pattern Blood Pressure 99/73 L Blood Pressure Mean 77 Pulse Oximetry 99 Oxygen Delivery Method Fraction of Inspired Oxygen Sepsis Recent Fever Within 48 Hours Sepsis New/Unexplained Change in Mental Status Sepsis Action Taken by Nursing 11/27/23 08:15 11/27/23 08:15 11/27/23 08:20 Pulse Rate 142 H Pulse Rate [Apical] Pulse Rate from SpO2 Sensor 140 H Respiratory Rate 24 Respiratory Effort / Characteristics Respiratory Depth Respiratory Pattern Blood Pressure 99/76 L 122/74 Blood Pressure Mean 83 90 Pulse Oximetry 99 Oxygen Delivery Method Fraction of Inspired Oxygen Sepsis Recent Fever Within 48 Hours Sepsis New/Unexplained Change in Mental Status Sepsis Action Taken by Nursing 11/27/23 08:20 11/27/23 08:25 11/27/23 08:25 Pulse Rate 130 H 122 H Pulse Rate [Apical] Pulse Rate from SpO2 Sensor 135 H 125 H Respiratory Rate 26 H 22 Respiratory Effort / Characteristics Respiratory Depth Respiratory Pattern Blood Pressure 93/59 L Blood Pressure Mean 74 Pulse Oximetry 99 98 Oxygen Delivery Method Fraction of Inspired Oxygen Sepsis Recent Fever Within 48 Hours Sepsis New/Unexplained Change in Mental Status Sepsis Action Taken by Nursing 11/27/23 08:30 11/27/23 08:30 11/27/23 08:35 Pulse Rate 128 H Pulse Rate [Apical] Pulse Rate from SpO2 Sensor 122 H Respiratory Rate 23 Respiratory Effort / Characteristics Respiratory Depth Respiratory Pattern Blood Pressure 100/70 91/65 L Blood Pressure Mean 83 72 Pulse Oximetry 98 Oxygen Delivery Method Fraction of Inspired Oxygen Sepsis Recent Fever Within 48 Hours Sepsis New/Unexplained Change in Mental Status Sepsis Action Taken by Nursing 11/27/23 08:35 11/27/23 08:40 11/27/23 08:40 Pulse Rate 126 H 134 H Pulse Rate [Apical] Pulse Rate from SpO2 Sensor 129 H 135 H Respiratory Rate 25 H 25 H Respiratory Effort / Characteristics Respiratory Depth Respiratory Pattern Blood Pressure 102/74 Blood Pressure Mean 87 Pulse Oximetry 100 98 Oxygen Delivery Method Fraction of Inspired Oxygen Sepsis Recent Fever Within 48 Hours Sepsis New/Unexplained Change in Mental Status Sepsis Action Taken by Nursing 11/27/23 08:45 11/27/23 08:45 11/27/23 08:50 Pulse Rate 137 H 132 H Pulse Rate [Apical] Pulse Rate from SpO2 Sensor 126 H 138 H Respiratory Rate 18 24 Respiratory Effort / Characteristics Respiratory Depth Respiratory Pattern Blood Pressure 94/68 L Blood Pressure Mean 69 Pulse Oximetry 94 97 Oxygen Delivery Method Fraction of Inspired Oxygen Sepsis Recent Fever Within 48 Hours Sepsis New/Unexplained Change in Mental Status Sepsis Action Taken by Nursing 11/27/23 08:50 11/27/23 08:53 11/27/23 08:53 Pulse Rate 132 H Pulse Rate [Apical] Pulse Rate from SpO2 Sensor 134 H Respiratory Rate 24 Respiratory Effort / Characteristics Respiratory Depth Respiratory Pattern Blood Pressure 85/69 L 88/67 L Blood Pressure Mean 76 70 Pulse Oximetry 99 Oxygen Delivery Method Fraction of Inspired Oxygen Sepsis Recent Fever Within 48 Hours Sepsis New/Unexplained Change in Mental Status Sepsis Action Taken by Nursing 11/27/23 08:55 11/27/23 08:55 11/27/23 09:00 Pulse Rate 132 H 128 H Pulse Rate [Apical] Pulse Rate from SpO2 Sensor 136 H 115 H Respiratory Rate 21 26 H Respiratory Effort / Characteristics Respiratory Depth Respiratory Pattern Blood Pressure 101/60 Blood Pressure Mean 70 Pulse Oximetry 98 99 Oxygen Delivery Method Fraction of Inspired Oxygen Sepsis Recent Fever Within 48 Hours Sepsis New/Unexplained Change in Mental Status Sepsis Action Taken by Nursing 11/27/23 09:00 11/27/23 09:05 11/27/23 09:05 Pulse Rate 136 H Pulse Rate [Apical] Pulse Rate from SpO2 Sensor 132 H Respiratory Rate 21 Respiratory Effort / Characteristics Respiratory Depth Respiratory Pattern Blood Pressure 88/66 L 89/73 L Blood Pressure Mean 75 78 Pulse Oximetry 99 Oxygen Delivery Method Fraction of Inspired Oxygen Sepsis Recent Fever Within 48 Hours Sepsis New/Unexplained Change in Mental Status Sepsis Action Taken by Nursing 11/27/23 09:10 11/27/23 09:15 11/27/23 09:15 Pulse Rate 117 H 127 H Pulse Rate [Apical] Pulse Rate from SpO2 Sensor 121 H 108 H Respiratory Rate 22 22 Respiratory Effort / Characteristics Respiratory Depth Respiratory Pattern Blood Pressure 88/65 L Blood Pressure Mean 71 Pulse Oximetry 97 98 Oxygen Delivery Method Fraction of Inspired Oxygen Sepsis Recent Fever Within 48 Hours Sepsis New/Unexplained Change in Mental Status Sepsis Action Taken by Nursing 11/27/23 09:20 11/27/23 09:25 11/27/23 09:25 Pulse Rate 144 H 140 H Pulse Rate [Apical] Pulse Rate from SpO2 Sensor 137 H 145 H Respiratory Rate 23 30 H Respiratory Effort / Characteristics Respiratory Depth Respiratory Pattern Blood Pressure 89/66 L Blood Pressure Mean 85 Pulse Oximetry 98 100 Oxygen Delivery Method Fraction of Inspired Oxygen Sepsis Recent Fever Within 48 Hours Sepsis New/Unexplained Change in Mental Status Sepsis Action Taken by Nursing 11/27/23 09:30 11/27/23 09:30 11/27/23 09:36 Pulse Rate 131 H Pulse Rate [Apical] Pulse Rate from SpO2 Sensor 113 H Respiratory Rate 21 Respiratory Effort / Characteristics Respiratory Depth Respiratory Pattern Blood Pressure 80/61 L 85/65 L Blood Pressure Mean 74 68 Pulse Oximetry 100 Oxygen Delivery Method Fraction of Inspired Oxygen Sepsis Recent Fever Within 48 Hours Sepsis New/Unexplained Change in Mental Status Sepsis Action Taken by Nursing 11/27/23 09:36 11/27/23 09:40 11/27/23 09:41 Pulse Rate 133 H 130 H Pulse Rate [Apical] Pulse Rate from SpO2 Sensor 121 H 117 H Respiratory Rate 24 20 Respiratory Effort / Characteristics Respiratory Depth Respiratory Pattern Blood Pressure 92/64 L Blood Pressure Mean 66 Pulse Oximetry 99 99 Oxygen Delivery Method Fraction of Inspired Oxygen Sepsis Recent Fever Within 48 Hours Sepsis New/Unexplained Change in Mental Status Sepsis Action Taken by Nursing 11/27/23 09:41 11/27/23 09:45 11/27/23 09:45 Pulse Rate 133 H 136 H Pulse Rate [Apical] Pulse Rate from SpO2 Sensor 124 H 129 H Respiratory Rate 22 23 Respiratory Effort / Characteristics Respiratory Depth Respiratory Pattern Blood Pressure 86/63 L Blood Pressure Mean 74 Pulse Oximetry 100 100 Oxygen Delivery Method Fraction of Inspired Oxygen Sepsis Recent Fever Within 48 Hours Sepsis New/Unexplained Change in Mental Status Sepsis Action Taken by Nursing 11/27/23 09:50 11/27/23 09:50 11/27/23 09:56 Pulse Rate 134 H Pulse Rate [Apical] Pulse Rate from SpO2 Sensor 131 H Respiratory Rate 22 Respiratory Effort / Characteristics Respiratory Depth Respiratory Pattern Blood Pressure 88/60 L 87/66 L Blood Pressure Mean 62 68 Pulse Oximetry 99 Oxygen Delivery Method Fraction of Inspired Oxygen Sepsis Recent Fever Within 48 Hours Sepsis New/Unexplained Change in Mental Status Sepsis Action Taken by Nursing 11/27/23 09:56 Pulse Rate 133 H Pulse Rate [Apical] Pulse Rate from SpO2 Sensor Respiratory Rate 25 H Respiratory Effort / Characteristics Respiratory Depth Respiratory Pattern Blood Pressure Blood Pressure Mean Pulse Oximetry Oxygen Delivery Method Fraction of Inspired Oxygen Sepsis Recent Fever Within 48 Hours Sepsis New/Unexplained Change in Mental Status Sepsis Action Taken by Custodial Medications Current Medication List: was personally reviewed by me Laboratory Data Attestation: I reviewed the patient's lab results. 11/30/23 06:15 11/30/23 18:56 Lab Results 11/27/23 11/27/23 11/27/23 Range/Units 07:45 08:20 09:58 WBC 21.20 H (4.8-10.8) K/ul RBC 4.54 L (4.70-6.10) M/uL Hgb 10.9 L (14.0-18.0) g/dl Hct 36.7 L (42.0-52.0) % MCV 80.8 (80.0-100.0) fL MCH 24.0 L (25.0-34.0) pg MCHC 29.7 L (32.0-36.0) g/dL RDW Std Deviation 43.8 (36.4-46.3) fL RDW Coeff of Mathieu 15.0 H (11.5-14.5) % Plt Count 398 (130-400) K/uL MPV 9.5 (9.4-12.4) fL Immature Gran % (Auto) 0.9 % Neut % (Auto) 88.9 % Lymph % (Auto) 3.2 % Elk % (Auto) 6.5 % Eos % (Auto) 0.1 % Baso % (Auto) 0.4 % Neut # (Auto) 18.85 H (1.40-6.50) K/uL Lymph # (Auto) 0.68 L (1.20-3.40) K/uL Elk # (Auto) 1.38 H (0.11-0.59) K/uL Eos # (Auto) 0.02 (0.00-0.50) K/uL Baso # (Auto) 0.08 (0.00-0.20) K/uL Immature Gran # (Auto) 0.19 (0.01-0.20) K/uL PT 14.1 H (9.0-12.0) Seconds INR 1.3 H (0.9-1.1) APTT 32 H (21-31) Seconds PTT Ratio 1.1 Sodium 128 L (136-145) mmol/L Potassium 4.0 (3.5-5.1) mmol/L Chloride 93 L (98-107) mmol/L Carbon Dioxide 24 (21-32) mmol/L Anion Gap 11 (3-11) BUN 24 H (6-23) mg/dl Creatinine 0.82 (0.6-1.4) mg/dl Est Cr Clr Drug Dosing Not Reportable Est GFR ( Amer) 109.8 ml/min Est GFR (Non-Af Amer) 94.8 ml/min BUN/Creatinine Ratio 29.3 H (10-20) Glucose 200 H (70-99(Fasting)) mg/dl Calcium 9.4 (8.6-10.3) mg/dl Magnesium 2.0 (1.7-2.4) mg/dl Total Bilirubin 0.6 (0.2-1.0) mg/dl AST 39 (13-39) U/L ALT 48 (7-52) U/L Alkaline Phosphatase 213 H (34-104) U/L Troponin I High Sens 15.7 (0-20) pg/ml Total Protein 7.3 (6.0-8.3) gm/dl Albumin 3.3 L (3.4-5.0) gm/dl Globulin 4.0 (2.5-4.0) gm/dl Albumin/Globulin Ratio 0.8 L (0.9-2) Urine Color Yellow Urine Appearance Clear (Clear) Urine pH 5.5 (4.5-7.5) Ur Specific [place] 1.013 (1.000-1.030) Urine Protein 1+ H (Negative) Urine Glucose (UA) Negative (Negative) Urine Ketones Negative (Negative) Urine Blood Negative (Negative) Urine Nitrite Negative (Negative) Urine Bilirubin Negative (Negative) Urine Urobilinogen Negative (Negative) Ur Leukocyte Esterase Negative (Negative) Urine WBC (Auto) 1-5 (0-5) /hpf Urine RBC (Auto) 0-4 (0-4) /hpf U Hyaline Cast (Auto) 5-10 H (0-5) /lpf U Epithel Cells (Auto) 0-5 (0-5) /lpf Urine Bacteria (Auto) Negative (Negative) Adenovirus (PCR) Not Detected (NotDetected) B. pertussis DNA (PCR) Not Detected (NotDetected) B.parapertussis DNA PCR Not Detected (NotDetected) C. pneumoniae DNA (PCR) Not Detected (NotDetected) Coronavirus OC43 (PCR) Not Detected (NotDetected) Coronavirus HKU1 (PCR) Not Detected (NotDetected) Coronavirus 229E (PCR) Not Detected (NotDetected) SARS-CoV-2 (PCR) Not Detected (NotDetected) Coronavirus NL63 (PCR) Not Detected (NotDetected) Human Metapneumovir PCR Not Detected (NotDetected) Influenza Type A (PCR) Not Detected (NotDetected) Influenza Type B (PCR) Not Detected (NotDetected) M. pneumoniae (PCR) Not Detected (NotDetected) Parainfluenza 1 (PCR) Not Detected (NotDetected) Parainfluenza 2 (PCR) Not Detected (NotDetected) Parainfluenza 3 (PCR) Not Detected (NotDetected) Parainfluenza 4 (PCR) Not Detected (NotDetected) RSV (PCR) Not Detected (NotDetected) Entero/Rhino (PCR) Not Detected (NotDetected) Administered Medications Acetaminophen (Acetaminophen 325 Mg Tab) 650 mg PO Q4H PRN PRN Reason: painfever Stop: 12/28/23 00:59 Last Admin: 11/29/23 13:49 Dose: 650 mg Documented By: Admin: 11/29/23 07:04 Dose: 650 mg Documented By: Admin: 11/29/23 03:06 Dose: 650 mg Documented By: Admin: 11/28/23 20:10 Dose: 650 mg Documented By: Admin: 11/28/23 13:44 Dose: 650 mg Documented By: RAY Apixaban (Apixaban 5 Mg Tablet) 5 mg PO BID [facility] Stop: 12/29/23 20:59 Last Admin: 11/30/23 20:36 Dose: 5 mg Documented By: Admin: 11/30/23 10:18 Dose: 5 mg Documented By: Admin: 11/29/23 21:01 Dose: 5 mg Documented By: MARLY Budesonide (Budesonide 0.25 Mg/2 Ml Vial (Pulmicort)) 0.25 mg NEB BIDR [facility] Stop: 12/28/23 18:59 Last Admin: 11/30/23 19:50 Dose: 0.25 mg Documented By: BWRoosevelt Admin: 11/30/23 07:30 Dose: 0.25 mg Documented By: Admin: 11/29/23 19:34 Dose: 0.25 mg Documented By: Admin: 11/29/23 07:16 Dose: 0.25 mg Documented By: Admin: 11/28/23 19:50 Dose: 0.25 mg Documented By: KARINE Formoterol Fumarate (Formoterol 20 Mcg/2 Ml Vial) 20 mcg INH BIDR [facility]; Protocol Stop: 12/28/23 18:59 Last Admin: 11/30/23 19:50 Dose: 20 mcg Documented By: Admin: 11/30/23 07:30 Dose: 20 mcg Documented By: Admin: 11/29/23 19:35 Dose: 20 mcg Documented By: Admin: 11/29/23 07:16 Dose: 20 mcg Documented By: Admin: 11/28/23 19:50 Dose: 20 mcg Documented By: KARINE Guaifenesin (Guaifenesin 600 Mg Tabcr) 600 mg PO Q12 [facility] Stop: 12/28/23 20:59 Last Admin: 11/30/23 20:37 Dose: 600 mg Documented By: Admin: 11/30/23 10:19 Dose: 600 mg Documented By: Admin: 11/29/23 21:01 Dose: 600 mg Documented By: Admin: 11/29/23 08:39 Dose: 600 mg Documented By: Admin: 11/28/23 20:12 Dose: 600 mg Documented By: LENIN Vancomycin HCl 750 mg/ Sodium (Chloride) 265 mls @ 200 mls/hr IV Q8H VARUN Stop: 12/04/23 17:59 Last Infusion: 11/30/23 23:12 Dose: Infused Documented By: Admin: 11/30/23 21:52 Dose: 200 mls/hr Documented By: Infusion: 11/30/23 15:45 Dose: Infused Documented By: Admin: 11/30/23 14:01 Dose: 200 mls/hr Documented By: Infusion: 11/30/23 07:08 Dose: Infused Documented By: Admin: 11/30/23 05:39 Dose: 200 mls/hr Documented By: Infusion: 11/29/23 22:26 Dose: Infused Documented By: Admin: 11/29/23 21:02 Dose: 200 mls/hr Documented By: Infusion: 11/29/23 16:01 Dose: Infused Documented By: Admin: 11/29/23 13:48 Dose: 200 mls/hr Documented By: Infusion: 11/29/23 06:57 Dose: Infused Documented By: Admin: 11/29/23 05:30 Dose: 200 mls/hr Documented By: Infusion: 11/29/23 00:04 Dose: Infused Documented By: Admin: 11/28/23 22:34 Dose: 200 mls/hr Documented By: Infusion: 11/28/23 15:21 Dose: Infused Documented By: Admin: 11/28/23 13:44 Dose: 200 mls/hr Documented By: RAY Cefepime HCl 2,000 mg/ Syringe 20 mls @ 5 mls/min IV Q8H VARUN Stop: 12/07/23 11:59 Last Admin: 12/01/23 03:43 Dose: 5 mls/min Documented By: Admin: 11/30/23 20:31 Dose: 5 mls/min Documented By: Admin: 11/30/23 14:01 Dose: 5 mls/min Documented By: HANG Metronidazole (Flagyl) 500 mg in 100 mls @ 100 mls/hr IV Q8H VARUN Stop: 12/07/23 11:59 Last Infusion: 12/01/23 04:47 Dose: Infused Documented By: Admin: 12/01/23 03:43 Dose: 100 mls/hr Documented By: Infusion: 11/30/23 21:52 Dose: Infused Documented By: Admin: 11/30/23 20:52 Dose: 100 mls/hr Documented By: Infusion: 11/30/23 14:11 Dose: Infused Documented By: Admin: 11/30/23 12:34 Dose: 100 mls/hr Documented By: HANG Ketorolac Tromethamine (Ketorolac 0.5% Op Soln 5 Ml Btl) 1 drops OPL Q4H VARUN Stop: 12/27/23 14:29 Last Admin: 12/01/23 02:58 Dose: 1 drops Documented By: Admin: 11/30/23 20:38 Dose: 1 drops Documented By: Admin: 11/30/23 18:04 Dose: 1 drops Documented By: Admin: 11/30/23 14:09 Dose: 1 drops Documented By: Admin: 11/30/23 12:21 Dose: Not Given Documented By: Admin: 11/30/23 05:39 Dose: Not Given Documented By: Admin: 11/30/23 02:57 Dose: Not Given Documented By: Admin: 11/29/23 22:26 Dose: Not Given Documented By: Admin: 11/29/23 18:08 Dose: 1 drops Documented By: Admin: 11/29/23 16:16 Dose: 1 drops Documented By: JBBertha Admin: 11/29/23 11:59 Dose: 1 drops Documented By: Admin: 11/29/23 05:35 Dose: 1 drops Documented By: Admin: 11/29/23 03:07 Dose: 1 drops Documented By: Admin: 11/28/23 21:46 Dose: 1 drops Documented By: Admin: 11/28/23 18:19 Dose: 1 drops Documented By: Admin: 11/28/23 14:39 Dose: 1 drops Documented By: Admin: 11/28/23 11:43 Dose: 1 drops Documented By: Admin: 11/28/23 05:54 Dose: 1 drops Documented By: Admin: 11/28/23 02:30 Dose: Not Given Documented By: Admin: 11/27/23 22:22 Dose: 1 drops Documented By: Admin: 11/27/23 18:13 Dose: 1 drops Documented By: Admin: 11/27/23 15:35 Dose: 1 drops Documented By: Metoprolol Succinate (Metoprolol Succ 50mg Ext Rel Tab) 50 mg PO BID VARUN Stop: 12/30/23 08:59 Last Admin: 11/30/23 20:37 Dose: 50 mg Documented By: Admin: 11/30/23 10:19 Dose: 50 mg Documented By: HANG Morphine Sulfate (Morphine Sulfate 2 Mg/Ml Carp) 2 mg IV Q6H PRN PRN Reason: Breakthrough Pain Stop: 12/12/23 13:24 Last Admin: 12/01/23 00:43 Dose: 2 mg Documented By: Admin: 11/30/23 18:04 Dose: 2 mg Documented By: Admin: 11/30/23 10:49 Dose: 2 mg Documented By: Admin: 11/30/23 05:38 Dose: 2 mg Documented By: Admin: 11/29/23 21:01 Dose: 2 mg Documented By: Admin: 11/29/23 13:54 Dose: 2 mg Documented By: Admin: 11/29/23 04:11 Dose: 2 mg Documented By: Admin: 11/28/23 20:50 Dose: 2 mg Documented By: Admin: 11/28/23 14:39 Dose: 2 mg Documented By: [facility] Moxifloxacin HCl (Moxifloxacin Hcl 0.5% Op Soln 3 Ml Btl) 1 drops OPL Q4H VARUN Stop: 12/27/23 14:29 Last Admin: 12/01/23 02:59 Dose: Not Given Documented By: Admin: 11/30/23 20:39 Dose: Not Given Documented By: Admin: 11/30/23 18:04 Dose: Not Given Documented By: Admin: 11/30/23 14:09 Dose: Not Given Documented By: Admin: 11/30/23 12:21 Dose: Not Given Documented By: Admin: 11/30/23 05:39 Dose: Not Given Documented By: Admin: 11/30/23 02:57 Dose: Not Given Documented By: Admin: 11/29/23 22:26 Dose: Not Given Documented By: [facility] Admin: 11/29/23 18:08 Dose: Not Given Documented By: [facility] Admin: 11/29/23 16:17 Dose: Not Given Documented By: [facility] Admin: 11/29/23 12:00 Dose: Not Given Documented By: [facility] Admin: 11/29/23 05:36 Dose: Not Given Documented By: Admin: 11/29/23 02:51 Dose: Not Given Documented By: Admin: 11/28/23 21:44 Dose: Not Given Documented By: Admin: 11/28/23 18:19 Dose: Not Given Documented By: [facility] Admin: 11/28/23 14:40 Dose: Not Given Documented By: [facility] Admin: 11/28/23 11:43 Dose: Not Given Documented By: [facility] Admin: 11/28/23 05:55 Dose: Not Given Documented By: Admin: 11/28/23 02:30 Dose: Not Given Documented By: Admin: 11/27/23 21:17 Dose: Not Given Documented By: Admin: 11/27/23 18:13 Dose: Not Given Documented By: Admin: 11/27/23 15:37 Dose: Not Given Documented By: MS Oxycodone HCl (Oxycodone Hcl Ir 5 Mg Tab (Immediate Release)) 5 mg PO Q6H PRN PRN Reason: Severe Pain (Scale 7, 8, 9,10) Stop: 12/11/23 17:11 Last Admin: 12/01/23 03:48 Dose: 5 mg Documented By: Admin: 11/30/23 20:35 Dose: 5 mg Documented By: Admin: 11/30/23 14:17 Dose: 5 mg Documented By: Admin: 11/30/23 07:12 Dose: 5 mg Documented By: Admin: 11/29/23 22:25 Dose: 5 mg Documented By: Admin: 11/29/23 16:16 Dose: 5 mg Documented By: Admin: 11/29/23 10:11 Dose: 5 mg Documented By: Admin: 11/29/23 03:06 Dose: 5 mg Documented By: Admin: 11/28/23 20:11 Dose: 5 mg Documented By: Admin: 11/28/23 13:43 Dose: 5 mg Documented By: RAY Prednisolone Acetate (Prednisolone Acetate 1% Op Susp 5 Ml Btl) 1 drops OPL Q4H VARUN Stop: 12/27/23 14:29 Last Admin: 12/01/23 02:58 Dose: 1 drops Documented By: Admin: 11/30/23 20:38 Dose: 1 drops Documented By: Admin: 11/30/23 18:03 Dose: 1 drops Documented By: Admin: 11/30/23 14:09 Dose: 1 drops Documented By: Admin: 11/30/23 12:21 Dose: Not Given Documented By: Admin: 11/30/23 05:40 Dose: Not Given Documented By: Admin: 11/30/23 02:57 Dose: Not Given Documented By: Admin: 11/29/23 22:26 Dose: Not Given Documented By: Admin: 11/29/23 18:08 Dose: 1 drops Documented By: Admin: 11/29/23 16:17 Dose: 1 drops Documented By: Admin: 11/29/23 11:59 Dose: 1 drops Documented By: Admin: 11/29/23 05:36 Dose: 1 drops Documented By: Admin: 11/29/23 03:07 Dose: 1 drops Documented By: Admin: 11/28/23 21:45 Dose: 1 drops Documented By: Admin: 11/28/23 18:19 Dose: 1 drops Documented By: Admin: 11/28/23 14:39 Dose: 1 drops Documented By: Admin: 11/28/23 11:42 Dose: 1 drops Documented By: Admin: 11/28/23 05:54 Dose: 1 drops Documented By: Admin: 11/28/23 02:30 Dose: Not Given Documented By: Admin: 11/27/23 22:22 Dose: 1 drops Documented By: Admin: 11/27/23 18:13 Dose: 1 drops Documented By: Admin: 11/27/23 15:35 Dose: 1 drops Documented By: Sodium Chloride (Sodium Chlor 7% 4 Ml Neb) 4 ml NEB BIDR VARUN Stop: 12/28/23 18:59 Last Admin: 11/30/23 19:51 Dose: 4 ml Documented By: Admin: 11/30/23 07:30 Dose: 4 ml Documented By: Admin: 11/29/23 19:35 Dose: 4 ml Documented By: Admin: 11/29/23 07:16 Dose: 4 ml Documented By: Admin: 11/28/23 19:50 Dose: 4 ml Documented By: KARINE Discontinued Medications Albuterol (Albut/Ipratrop 3mg/0.5mg Neb 3 Ml Vial) 3 ml NEB NOW STA; Protocol Stop: 11/27/23 07:43 Last Admin: 11/27/23 07:43 Dose: 3 ml Documented By: WENDY Albuterol (Albut/Ipratrop 3mg/0.5mg Neb 3 Ml Vial) 3 ml INH NOW STA Stop: 11/27/23 07:44 Last Admin: 11/27/23 08:14 Dose: Not Given Documented By: WENDY Diltiazem HCl (Diltiazem Hcl 5 Mg/Ml 5 Ml Vial) 10 mg IV NOW STA Stop: 11/27/23 07:39 Last Admin: 11/27/23 08:09 Dose: 10 mg Documented By: TERA Co-signed By: LENIN(2) Furosemide (Furosemide Inj 20 Mg/2 Ml Vial) 20 mg IV ONE STA Stop: 11/27/23 16:35 Last Admin: 11/27/23 16:40 Dose: 20 mg Documented By: Furosemide (Furosemide Inj 20 Mg/2 Ml Vial) 20 mg IV ONE ONE Stop: 11/28/23 15:37 Last Admin: 11/28/23 16:44 Dose: 20 mg Documented By: RAY Furosemide (Furosemide Inj 20 Mg/2 Ml Vial) 20 mg IV ONE ONE Stop: 11/29/23 09:43 Last Admin: 11/29/23 10:11 Dose: 20 mg Documented By: RAY Furosemide (Furosemide Inj 20 Mg/2 Ml Vial) 20 mg IV ONE ONE Stop: 11/29/23 17:10 Last Admin: 11/29/23 18:04 Dose: 20 mg Documented By: RAY Furosemide (Furosemide Inj 20 Mg/2 Ml Vial) 20 mg IV ONE ONE Stop: 11/30/23 08:25 Last Admin: 11/30/23 10:18 Dose: 20 mg Documented By: HANG Heparin Sodium (Porcine) (Heparin Sod (Porcine) 1000 Unit/Ml) 3,000 units IV NOW ONE Stop: 11/27/23 12:02 Last Admin: 11/27/23 14:23 Dose: Not Given Documented By: Heparin Sodium (Porcine) (Heparin Sod (Porcine) 1000 Unit/Ml) 4,000 units IV NOW ONE Stop: 11/28/23 07:16 Last Admin: 11/28/23 08:58 Dose: 4,000 units Documented By: RAY Co-signed By: TRAVIS Digoxin 500 mcg/ Syringe 10 mls @ 2 mls/min IV NOW STA Stop: 11/27/23 07:42 Last Admin: 11/27/23 07:59 Dose: 2 mls/min Documented By: TERA Diltiazem HCl 125 mg/ Dextrose 125 mls @ 5 mls/hr IV .Q24H VARUN; Protocol Stop: 12/27/23 07:44 Last Titration: 11/27/23 13:04 Dose: Infused Documented By: Co-signed By: PAMELLA Admin: 11/27/23 08:14 Dose: 5 mg/hr, 5 mls/hr Documented By: TERA Co-signed By: LENIN(2) Cefepime HCl (Maxipime) 2,000 mg in 20 mls @ 5 mls/min IV NOW STA; Protocol Stop: 11/27/23 08:30 Last Admin: 11/27/23 08:57 Dose: 5 mls/min Documented By: TERA Vancomycin HCl 1,000 mg/ (Sodium Chloride) 520 mls @ 200 mls/hr IV NOW ONE Stop: 11/27/23 10:56 Last Infusion: 11/27/23 13:05 Dose: Infused Documented By: Admin: 11/27/23 10:55 Dose: 200 mls/hr Documented By: LENIN(2) Sodium Chloride (Nss) 500 mls @ 999 mls/hr IV .Q31M ONE Stop: 11/27/23 09:01 Last Infusion: 11/27/23 09:25 Dose: Infused Documented By: LENIN(2) Admin: 11/27/23 08:54 Dose: 999 mls/hr Documented By: TERA Sodium Chloride (Nss) 1,000 mls @ 125 mls/hr IV .Q8H VARUN Stop: 12/27/23 08:44 Last Infusion: 11/27/23 13:04 Dose: Infused Documented By: Admin: 11/27/23 08:53 Dose: 125 mls/hr Documented By: TERA Levofloxacin/Dextrose (Levaquin/D5w) 750 mg in 150 mls @ 100 mls/hr IV ONE ONE Stop: 11/27/23 13:29 Last Infusion: 11/27/23 15:52 Dose: Infused Documented By: Admin: 11/27/23 14:22 Dose: 100 mls/hr Documented By: Meropenem 500 mg/ Syringe 10 mls @ 2 mls/min IV NOW STA; Protocol Stop: 11/27/23 11:28 Last Admin: 11/27/23 12:18 Dose: 2 mls/min Documented By: NADIR Meropenem 500 mg/ Syringe 10 mls @ 2 mls/min IV Q6H VARUN; Protocol Stop: 12/04/23 17:59 Last Admin: 11/30/23 05:39 Dose: 2 mls/min Documented By: Admin: 11/30/23 00:59 Dose: 2 mls/min Documented By: Admin: 11/29/23 18:07 Dose: 2 mls/min Documented By: Admin: 11/29/23 12:04 Dose: 2 mls/min Documented By: Admin: 11/29/23 05:30 Dose: 2 mls/min Documented By: Admin: 11/28/23 23:58 Dose: 2 mls/min Documented By: Admin: 11/28/23 18:16 Dose: 2 mls/min Documented By: Admin: 11/28/23 11:43 Dose: 2 mls/min Documented By: Admin: 11/28/23 05:53 Dose: 2 mls/min Documented By: Admin: 11/28/23 00:18 Dose: 2 mls/min Documented By: Admin: 11/27/23 17:13 Dose: 2 mls/min Documented By: Heparin Sodium/Dextrose (Heparin Sodium/Dextrose) 25,000 units in 500 mls @ 28 mls/hr IV .[id number] [facility]; Protocol Stop: 12/27/23 12:14 Last Titration: 11/29/23 18:01 Dose: Infused Documented By: RAY Co-signed By: AKIN Admin: 11/29/23 12:37 Dose: Not Given Documented By: Titration: 11/29/23 11:55 Dose: Infused Documented By: RAY Co-signed By: PAT Admin: 11/29/23 11:55 Dose: 1,400 units/hr, 28 mls/hr Documented By: RAY Co-signed By: PAT Titration: 11/28/23 23:49 Dose: 1,250 units/hr, 25 mls/hr Documented By: LENIN Co-signed By: MACK Admin: 11/28/23 17:30 Dose: 1,100 units/hr, 22 mls/hr Documented By: RAY Co-signed By: JANET Titration: 11/28/23 17:30 Dose: Infused Documented By: RAY Co-signed By: JANET Titration: 11/28/23 16:33 Dose: 1,100 units/hr, 22 mls/hr Documented By: RAY Co-signed By: PAT Admin: 11/28/23 13:19 Dose: Not Given Documented By: Titration: 11/28/23 08:58 Dose: 950 units/hr, 19 mls/hr Documented By: RAY Co-signed By: TRAVIS Titration: 11/28/23 07:17 Dose: 800 units/hr, 16 mls/hr Documented By: JERRY Co-signed By: RAY Titration: 11/27/23 20:33 Dose: 800 units/hr, 16 mls/hr Documented By: JERRY Co-signed By: RACHELE Admin: 11/27/23 13:06 Dose: 650 units/hr, 13 mls/hr Documented By: Co-signed By: PAMELLA Vancomycin HCl 750 mg/ Sodium (Chloride) 265 mls @ 200 mls/hr IV Q12H VARUN Stop: 12/04/23 17:59 Last Infusion: 11/28/23 07:56 Dose: Infused Documented By: Admin: 11/28/23 05:55 Dose: 200 mls/hr Documented By: Infusion: 11/27/23 18:33 Dose: Infused Documented By: Admin: 11/27/23 17:13 Dose: 200 mls/hr Documented By: Heparin Sodium (Porcine) 3,000 (units/ Syringe) 3 mls @ 10 mls/min IV ONE ONE Stop: 11/27/23 13:46 Last Admin: 11/27/23 14:22 Dose: 10 mls/min Documented By: Co-signed By: PAMELLA Acetaminophen (Ofirmev) 1,000 mg in 100 mls @ 400 mls/hr IV NOW STA Stop: 11/27/23 17:21 Last Infusion: 11/27/23 17:31 Dose: Infused Documented By: Admin: 11/27/23 17:16 Dose: 400 mls/hr Documented By: Heparin Sodium (Porcine) 4,000 (units/ Syringe) 4 mls @ 10 mls/min IV NOW ONE Stop: 11/27/23 20:31 Last Admin: 11/27/23 20:33 Dose: 10 mls/min Documented By: JERRY Co-signed By: RACHELE Heparin Sodium (Porcine) 4,000 (units/ Syringe) 4 mls @ 10 mls/min IV NOW ONE Stop: 11/28/23 17:01 Last Admin: 11/28/23 17:29 Dose: 10 mls/min Documented By: RAY Co-signed By: JANET Heparin Sodium (Porcine) 4,000 (units/ Syringe) 4 mls @ 10 mls/min IV ONE ONE Stop: 11/29/23 00:00 Last Admin: 11/29/23 00:18 Dose: 10 mls/min Documented By: LENIN Co-signed By: MACK Heparin Sodium (Porcine) 4,000 (units/ Syringe) 4 mls @ 10 mls/min IV ONE ONE Stop: 11/29/23 10:05 Last Admin: 11/29/23 11:55 Dose: 10 mls/min Documented By: RAY Co-signed By: PAT Ioversol (Optiray 320 125ml) 118 ml IV ONCE ONE Stop: 11/27/23 10:15 Last Admin: 11/27/23 10:14 Dose: 118 ml Documented By: YESSY Methylprednisolone (Methylprednisolone 125 Mg/2 Ml Vial) 60 mg IV NOW STA Stop: 11/27/23 07:44 Last Admin: 11/27/23 08:54 Dose: 60 mg Documented By: TERA Metoprolol Tartrate (Metoprolol Tartrate 1 Mg/Ml Vial) 5 mg IV NOW STA Stop: 11/27/23 12:51 Last Admin: 11/27/23 13:13 Dose: 5 mg Documented By: Metoprolol Tartrate (Metoprolol Tartrate 25 Mg Tab) 25 mg PO Q6 VARUN Stop: 11/29/23 23:59 Last Admin: 11/29/23 18:07 Dose: 25 mg Documented By: Admin: 11/29/23 12:02 Dose: 25 mg Documented By: Admin: 11/29/23 05:35 Dose: 25 mg Documented By: Admin: 11/28/23 23:58 Dose: 25 mg Documented By: Admin: 11/28/23 18:18 Dose: 25 mg Documented By: Admin: 11/28/23 11:43 Dose: 25 mg Documented By: Admin: 11/28/23 05:56 Dose: 25 mg Documented By: Admin: 11/28/23 00:10 Dose: 25 mg Documented By: Admin: 11/27/23 17:12 Dose: 25 mg Documented By: Admin: 11/27/23 14:22 Dose: 25 mg Documented By: Metoprolol Tartrate (Metoprolol Tartrate 1 Mg/Ml Vial) 5 mg IV NOW STA Stop: 11/27/23 16:58 Last Admin: 11/27/23 17:14 Dose: 5 mg Documented By: Metoprolol Tartrate (Metoprolol Tartrate 1 Mg/Ml Vial) 2.5 mg IV NOW STA Stop: 11/27/23 21:38 Last Admin: 11/27/23 21:46 Dose: Not Given Documented By: JERRY Miscellaneous (Stat Iv Infusion Titration Per Protocol) 1 each N/A NOW Stop: 11/27/23 07:39 Last Admin: 11/27/23 08:18 Dose: Not Given Documented By: LENIN(2) Morphine Sulfate (Morphine Sulfate 2 Mg/Ml Carp) 2 mg IV NOW Stop: 11/27/23 22:48 Last Admin: 11/27/23 23:00 Dose: 2 mg Documented By: JERRY Morphine Sulfate (Morphine Sulfate 2 Mg/Ml Carp) 2 mg IV NOW STA Stop: 11/28/23 08:28 Last Admin: 11/28/23 08:55 Dose: 2 mg Documented By: RAY Oxycodone HCl (Oxycodone Hcl Ir 5 Mg Tab (Immediate Release)) 5 mg PO Q8H PRN PRN Reason: Severe Pain (Scale 7, 8, 9,10) Stop: 12/11/23 17:11 Last Admin: 11/28/23 05:51 Dose: 5 mg Documented By: JERRY Potassium Chloride (Potassium Chloride Crtab 20 Meq Tabcr) 40 meq PO NOW STA Stop: 11/30/23 07:54 Last Admin: 11/30/23 12:37 Dose: Not Given Documented By: HANG Potassium Chloride (Potassium Chloride 10 Meq Tabcr) 40 meq PO 1130 VARUN Stop: 11/30/23 12:00 Last Admin: 11/30/23 12:37 Dose: 40 meq Documented By: HANG Potassium Phosphate (Pot Phosphate Monobasic W/ Sod Tab) 2 tab PO ONCE ONE Stop: 11/30/23 07:55 Last Admin: 11/30/23 10:18 Dose: 2 tab Documented By: HANG Imaging Data Radiologist's Impression: Chest X-Ray 11/27/23 07:43 XR chest 1V portable CLINICAL HISTORY: Dyspnea. Lung cancer. COMPARISON STUDY: Chest radiograph March 24, 2023. Chest CT October 23, 2023. FINDINGS: There is no pneumothorax. A left pleural effusion is present. Size is difficult to assess by radiography. Near-complete opacification of the left lung has slightly decreased since prior exam with volume loss. There is minimal aeration of the left upper lobe. Several right lung nodules measure up to 9 mm. There is mild interstitial thickening within the right lung. No consolidation within the right lung. IMPRESSION: 1. Near complete opacification of the left lung, slightly decreased since prior exam. Minimal aeration of the left upper lobe. Associated left lung volume loss. Left pleural effusion. 2. Right lung nodules consistent with metastases. 3. Subtle interstitial thickening within the right lung. This may reflect mild interstitial edema. ACT 112: Negative or not required by law. Electronically signed by: Jace Call M.D. 11/27/2023 8:14 AM Chest CTA 11/27/23 08:53 CT ANGIOGRAPHY OF THE CHEST, PULMONARY EMBOLUS PROTOCOL CLINICAL HISTORY: Shortness of breath. Lung cancer. COMPARISON STUDY: Chest CT October 23, 2023. Chest radiograph performed earlier today. TECHNIQUE: Following IV administration of 118 mL of Optiray, helical axial images of the chest were obtained utilizing the pulmonary embolus protocol. Maximal intensity projections and sagittal and coronal reformats were viewed on an independent 3D workstation. IV contrast was administered without complication. Automated exposure control was utilized for the study. A dose lowering technique was utilized adhering to the principles of ALARA. FINDINGS: No pulmonary emboli are identified. Occlusion of the left pulmonary artery by the left perihilar necrotic mass is again noted. This was shown on CT of October 23, 2023. This mass is obscured by adjacent atelectatic lung. The lesion measures approximately 7.5 x 5.6 cm, previously 6 x 4 cm. This results in occlusion of the left mainstem bronchus. The left bronchial tree is completely opacified. There is near complete opacification of the left lung, similar to prior exam. The volume of the opacified left lung has increased. This could reflect a drowned lung. A fluid and gas containing cavity within the left upper hemithorax measures 10 x 6.4 cm and has increased in size since prior exam. Mediastinal extension of the tumor has increased. Prominent mediastinal and left supraclavicular lymph nodes are similar to prior exam. A few right lung metastases are similar to prior exam, measuring up to 8 mm. Interlobular septal thickening within the right lung is present. Scattered alveolar opacities within the right lung are greatest within the right middle and right lower lobes. Right lower lobe bronchial wall thickening with secretions is noted. No suspicious lesions within the bony thorax. No significant abnormality within the visualized upper abdomen is identified. IMPRESSION: 1. No pulmonary emboli identified. 2. Increase in size of the left perihilar necrotic mass. This likely reflects the primary lesion with disease progression. Increase in mediastinal extension. As before, this mass results in occlusion of the left mainstem bronchus with near complete opacification of the left lung. Increase in size of a 10 x 6.4 cm fluid and gas containing cavity within the left hemithorax. 3. Moderate left pleural effusion, similar to prior exam. 4. No significant change in mediastinal and left supraclavicular lymphadenopathy and several right lung metastases. 5. Interlobular septal thickening within the right lung consistent with interstitial edema. 6. Alveolar opacities within the right lung could reflect alveolar pulmonary edema or a superimposed infectious process. Bronchial wall thickening and secretions within the right lower lobe. ACT 112: Negative or not required by law. Electronically signed by: Jace Call M.D. 11/27/2023 10:42 AM Discharge Plan Visit Data Chief Complaint: Shortness of Breath/Dyspnea Stated Complaint: SOB, EDEMA ED Provider: Yeni Collado Discharge Problem: Postobstructive pneumonia, Lung cancer, Atrial fibrillation with RVR, Atrial fibrillation, new onset Patient Disposition: Admitted As Inpatient Discharge Instructions Interventions: ED Discharge Assessment Last Done: 11/27/23 12:15 Discharge Problem: Lung cancer Qualifiers: Laterality: left Lung location: hilum of lung Qualified Code(s): C34.02 - Malignant neoplasm of left main bronchus
[2023-11-27] MEDS: prednisoLONE acetate 1% OP SUSP 5 ML BTL OPL SCH (15:35)
[2023-11-27] MEDS: KETOROLAC 0.5% OP SOLN 5 ML BTL OPL SCH (15:35)
[2023-11-27] MEDS: MOXIFLOXACIN HCL 0.5% OP SOLN 3 ML BTL OPL SCH (15:37)
--- NOTE | 2023-11-27 15:44 | Pulmonary Consultation ---
Date of Consultation November 27, 2023 Assessment & Plan (1) Acute hypoxic respiratory failure: (2) Sepsis: Sepsis type: sepsis due to unspecified organism Sepsis acute organ dysfunction status: with acute organ dysfunction Severe sepsis acute organ dysfunction type: acute respiratory failure Acute respiratory failure type: with hypoxia Severe sepsis shock status: unspecified Qualified Code(s): A41.9 - Sepsis, unspecified organism; R65.20 - Severe sepsis without septic shock; J96.01 - Acute respiratory failure with hypoxia (3) Pneumonia: Laterality: unspecified laterality Lung location: unspecified part of lung Pneumonia type: due to unspecified organism Qualified Code(s): J 18.9 - Pneumonia, unspecified organism (4) Squamous cell carcinoma of left lung: (5) Abnormal chest CT: (6) Hydropneumothorax: (7) Metastatic primary lung cancer: Laterality: left Qualified Code(s): C34.92 - Malignant neoplasm of unspecified part of left bronchus or lung Plan CT chest 11/27/2023 personally reviewed: Moderate left-sided hydropneumothorax with collapse of the left lung Centrilobular emphysema on the right side Minimal patchy groundglass opacities appreciated in the right lower lobe with some interlobular thickening Mediastinal shift to the left The mass seems to be increased in size of the left hydropneumothorax 2D echo 11/27/2023: EF 50-55%, global hypokinesis of the left ventricle, mild concentric LVH, moderate MR, RV normal in size and function ABG 11/27/2023: 7.45/29/98 --Left-sided hydropneumothorax No need for any intervention --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 It may contain grammatical, syntax or spelling errors.Any formal questions or concerns about the content, text or information contained within the body of this dictation should be directly addressed to the provider for clarification. History of Present Illness Attending Physician: Kaitlin Mcmullen, DO History of Present Illness 62-year-old male present to the hospital for worsening shortness of breath Past medical history: Metastatic lung squamous cell carcinoma, PD-L1 positive, chronic hep C Patient says that he has been having worsening shortness of reticently going on for couple of days He does feel that he has phlegm but is not able to bring it up Denies any hemoptysis. No dysuria, no diarrhea. No headache, no nausea, no vomiting. Subjective fever but no chills. He is not on oxygen at home usually Social history: Approximately 24-tfue-dzyn smoking history, quit at the age of 55 Allergies Allergy/AdvReac Type Severity Reaction Status Date / Time No Known Allergies Allergy Verified 11/17/23 09:19 Home Medications Medication Instructions Recorded Confirmed Type albuterol sulfate 90 mcg/actuation 2 puff inhalation Q4 PRN Wheezing 10/29/22 11/27/23 History aerosol inhaler ibuprofen 200 mg tablet 200 mg PO TID PRN Pain 03/19/23 11/27/23 History ipratropium 0.5 mg-albuterol 3 mg 3 ml inhalation QID Wheezing 05/08/23 11/27/23 History (2.5 mg base)/3 mL nebulization soln oxycodone 5 mg tablet 5 mg PO Q8H PRN Pain 05/08/23 11/27/23 History multivitamin 1 tab PO QAM 10/26/23 11/27/23 History albuterol sulfate 2.5 mg/3 mL 2.5 mg inhalation Q4H PRN 11/27/23 11/27/23 History (0.083 %) solution for nebulization Shortness Of Breath Or Wheezing docusate sodium 100 mg tablet 100 mg PO BID PRN Constipation 11/27/23 11/27/23 History guaifenesin 600 mg tablet, 600 mg PO Q12H PRN Cough 11/27/23 11/27/23 History extended release 12 hr ketorolac 0.5 % eye drops See Rx Instructions .Route .COMPLEX 11/27/23 11/27/23 History moxifloxacin 0.5 % eye drops See Rx Instructions .Route .COMPLEX 11/27/23 11/27/23 History prednisolone acetate 1 % eye See Rx Instructions .Route .COMPLEX 11/27/23 11/27/23 History drops,suspension Patient History Medical History Medical cannabis use Hx MRSA infection 02/2023, hospitalized [place] [facility] [place]bacteremia of [place] site>MRSA cellulitis/radiation dermatitis of the left upper chest. Arthritis History of COVID-19 08/2023, home and PCP test, not hosp; flu type symptoms>resolved Nutrition disorder Cavitary pneumonia march through may 2023, kept getting this off and on; f/u pulmonary mnpg Metastatic primary lung cancer Dx'd 10/14/2022, chemo and xrt tx (completed spring 2022). [facility] for infusions q2wk>currently having maintenance tx every other week, next tx 10/27/23 BPH (benign prostatic hyperplasia) Weakness still has ongoing maintenance tx for lung cancer (every other week as of 10/2023) History of recent hospitalization 02/2023 [facility] - MRSA bacteremia secondary to port infection, bilateral lobe pneumonia, MRSA cellulitis/radiation dermatitis of the left upper chest. History of chest pain dx 10/2022, had cp-"dr felt it may be due to tumor loaction at entry of lungs, had wanted to place a stent but was unable" History of influenza OCT 2022 History of vascular access device removed History of fracture of orbit HX RIGHT ORBITAL FX...SX/TITANIUM IMPLANT Osteoporosis Ruptured intervertebral disc hx History of fractured vertebra "years ago" DM type 2 (diabetes mellitus, type 2) pt told he was borderline "for the last 12 years"; Ex-smoker Frequent urination ongoing issue Hepatitis C Active Surgical History Hx of right cataract extraction History of open reduction and internal fixation (ORIF) procedure rt orbital fx-hardware intact History of bronchoscopy H/O eye surgery 1996 History of tonsillectomy and adenoidectomy 1972 H/O knee surgery 1999 Family History Brother Stomach cancer Grandfather (Maternal) Prostate cancer Grandfather (Paternal) Colon cancer Father Heart disease Grandfather Stroke Social History Smoking Status: Former smoker Tobacco Type: Cigarettes packs per day: 1.5; Second Hand Exposure: Yes (as a child); Do You Dip or Chew Tobacco: No; Hx Alcohol Use: No Hx Substance Use: Yes (med marajuana card) Non-Prescribed Medications: Marijuana and Methamphetamines Substance Use Type Other:: used methamphetamine and marijuana in the "80's" Preferred Language: Mauritanian Communication Ability: Effective Visual Impairment: No Limitations Hearing Ability: Normal Contracts Attorney Required: No Beliefs That Will Affect Care: None Current Living Situation: Significant Other 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 current occupational status: disabled Feels Safe at Home: Yes Diet: diabetic during the past year weight has: decreased > 10 lbs Assistive Devices: Glasses and Nebulizer Review of Systems 2 Review of Systems: All systems reviewed & are unremarkable except as noted in HPI & below Physical Exam 2 Physical Exam: Constitutional: No acute distress, frail-appearing HEENT: EOMI, PERRLA Respiratory system: Decreased air entry on the left side, no wheeze, no rhonchi, positive crackles right lower lobe CVS: S1-S2 positive, no murmurs or gallops Abdomen: Soft, nontender, nondistended, positive bowel sounds x4 Extremities: +2 pulses bilaterally radialis/ dorsalis pedis, no cyanosis, no edema, no clubbing Neuro: Awake alert oriented x3 Psych: Normal mood and affect G/U: Positive Cosby Skin: no rashes, warm and dry Lymphatic: no cervical or axillary lymphadenopathy Results & Data Results & Data Vital Signs (Past 12 Hours) Vital Signs Temp Pulse Pulse Resp BP BP Pulse Ox 11/27/23 15:07 124 H 11/27/23 15:05 142 H 11/27/23 14:57 36.5 C 136 H 20 101/70 94 11/27/23 13:28 129 H 101/70 11/27/23 13:13 129 H 95/60 L 11/27/23 12:43 36.5 C 134 H 21 95/60 L 97 11/27/23 12:34 11/27/23 11:45 129 H 20 100 11/27/23 11:45 95/67 L 11/27/23 11:40 131 H 25 H 98 11/27/23 11:32 131 H 21 11/27/23 11:32 108/71 11/27/23 11:32 108/71 11/27/23 11:30 134 H 21 11/27/23 11:20 120 H 21 99 11/27/23 11:15 96/67 L 11/27/23 11:15 126 H 21 100 11/27/23 11:10 120 H 20 95 11/27/23 11:05 92/72 L 11/27/23 11:05 124 H 18 98 11/27/23 11:00 128 H 19 95 11/27/23 11:00 81/62 L 11/27/23 10:50 124 H 20 11/27/23 10:45 91/66 L 11/27/23 10:45 124 H 20 11/27/23 10:40 131 H 14 11/27/23 10:30 90/66 L 11/27/23 10:30 133 H 24 11/27/23 10:20 132 H 24 98 11/27/23 10:20 123 H 24 100 11/27/23 10:19 85/56 L 11/27/23 10:19 125 H 20 98 11/27/23 10:18 100 11/27/23 09:56 133 H 25 H 11/27/23 09:56 87/66 L 11/27/23 09:50 88/60 L 11/27/23 09:50 134 H 22 99 11/27/23 09:45 136 H 23 100 11/27/23 09:45 86/63 L 11/27/23 09:41 133 H 22 100 11/27/23 09:41 92/64 L 11/27/23 09:40 130 H 20 99 11/27/23 09:36 133 H 24 99 11/27/23 09:36 85/65 L 11/27/23 09:30 80/61 L 11/27/23 09:30 131 H 21 100 11/27/23 09:25 140 H 30 H 100 11/27/23 09:25 89/66 L 11/27/23 09:20 144 H 23 98 11/27/23 09:15 127 H 22 98 11/27/23 09:15 88/65 L 11/27/23 09:10 117 H 22 97 11/27/23 09:05 136 H 21 99 11/27/23 09:05 89/73 L 11/27/23 09:00 88/66 L 11/27/23 09:00 128 H 26 H 99 11/27/23 08:55 101/60 11/27/23 08:55 132 H 21 98 11/27/23 08:53 88/67 L 11/27/23 08:53 132 H 24 99 11/27/23 08:50 85/69 L 11/27/23 08:50 132 H 24 97 11/27/23 08:45 94/68 L 11/27/23 08:45 137 H 18 94 11/27/23 08:40 102/74 11/27/23 08:40 134 H 25 H 98 11/27/23 08:35 126 H 25 H 100 11/27/23 08:35 91/65 L 11/27/23 08:30 100/70 11/27/23 08:30 128 H 23 98 11/27/23 08:25 93/59 L 11/27/23 08:25 122 H 22 98 11/27/23 08:20 130 H 26 H 99 11/27/23 08:20 122/74 11/27/23 08:15 99/76 L 11/27/23 08:15 142 H 24 99 11/27/23 08:10 99/73 L 11/27/23 08:10 146 H 24 99 11/27/23 08:09 152 H 11/27/23 08:05 90/59 L 11/27/23 08:05 150 H 23 98 11/27/23 08:00 87/61 L 11/27/23 08:00 162 H 23 95 11/27/23 07:59 156 H 11/27/23 07:55 90 11/27/23 07:55 98/66 L 11/27/23 07:50 167 H 24 11/27/23 07:49 98 11/27/23 07:49 11/27/23 07:44 158 H 28 H 98 11/27/23 07:44 154 H 28 H 98 11/27/23 07:43 98 11/27/23 07:43 159 H 13 106/80 98 11/27/23 07:40 165 H 28 H 96 O2 Del Method O2 Flow Rate FiO2 11/27/23 15:07 11/27/23 15:05 11/27/23 14:57 Nasal Cannula 4 11/27/23 13:28 11/27/23 13:13 11/27/23 12:43 Nasal Cannula 4 11/27/23 12:34 Nasal Cannula 4 11/27/23 11:45 11/27/23 11:45 11/27/23 11:40 11/27/23 11:32 11/27/23 11:32 11/27/23 11:32 11/27/23 11:30 11/27/23 11:20 11/27/23 11:15 11/27/23 11:15 11/27/23 11:10 11/27/23 11:05 11/27/23 11:05 11/27/23 11:00 11/27/23 11:00 11/27/23 10:50 11/27/23 10:45 11/27/23 10:45 11/27/23 10:40 11/27/23 10:30 11/27/23 10:30 11/27/23 10:20 40 11/27/23 10:20 11/27/23 10:19 11/27/23 10:19 11/27/23 10:18 11/27/23 09:56 11/27/23 09:56 11/27/23 09:50 11/27/23 09:50 11/27/23 09:45 11/27/23 09:45 11/27/23 09:41 11/27/23 09:41 11/27/23 09:40 11/27/23 09:36 11/27/23 09:36 11/27/23 09:30 11/27/23 09:30 11/27/23 09:25 11/27/23 09:25 11/27/23 09:20 11/27/23 09:15 11/27/23 09:15 11/27/23 09:10 11/27/23 09:05 11/27/23 09:05 11/27/23 09:00 11/27/23 09:00 11/27/23 08:55 11/27/23 08:55 11/27/23 08:53 11/27/23 08:53 11/27/23 08:50 11/27/23 08:50 11/27/23 08:45 11/27/23 08:45 11/27/23 08:40 11/27/23 08:40 11/27/23 08:35 11/27/23 08:35 11/27/23 08:30 11/27/23 08:30 11/27/23 08:25 11/27/23 08:25 11/27/23 08:20 11/27/23 08:20 11/27/23 08:15 11/27/23 08:15 11/27/23 08:10 11/27/23 08:10 11/27/23 08:09 11/27/23 08:05 11/27/23 08:05 11/27/23 08:00 11/27/23 08:00 11/27/23 07:59 11/27/23 07:55 11/27/23 07:55 11/27/23 07:50 11/27/23 07:49 CPAP 11/27/23 07:49 CPAP 11/27/23 07:44 40 11/27/23 07:44 BiPAP 40 11/27/23 07:43 CPAP 11/27/23 07:43 CPAP 11/27/23 07:40 Laboratory Results 11/27/23 07:45 11/27/23 14:28 PG Care Time/CCT Total # of Minutes Spent Total Time Spent with Patient: Total time spent is greater than 50% in coordination of care (as documented) at patient's floor/unit and/or counseling patient: Coding Level of Care Code 40807 INT INP/OBS CARE 3/75MIN Diagnoses Acute hypoxic respiratory failure J96.01 Sepsis with acute hypoxic respiratory failure, due to unspecified organism, unspecified whether septic shock present A41.9; R65.20; J96.01 Sepsis type: sepsis due to unspecified organism Sepsis acute organ dysfunction status: with acute organ dysfunction Severe sepsis acute organ dysfunction type: acute respiratory failure Acute respiratory failure type: with hypoxia Severe sepsis shock status: unspecified Pneumonia J18.9 Laterality: unspecified laterality Lung location: unspecified part of lung Pneumonia type: due to unspecified organism Squamous cell carcinoma of left lung C34.[address] R93.89 Hydropneumothorax J94.8 Primary malignant neoplasm of left lung metastatic to other site C34.92 Laterality: left
[2023-11-27 15:47] LABS: iSTAT Arterial Blood Gas HCO3 20 meg/L (19-24); iSTAT Arterial Blood Gas pCO2 29 mmHg (35-46); iSTAT Arterial Blood Gas pH 7.45 (7.35-7.45); iSTAT Arterial Blood Gas pO2 98 mmHg (80-95); iSTAT Carbon Dioxide 21 mmol/L (24-31); iSTAT Hematocrit 32 % (42-52); iSTAT Hemoglobin 10.9 g/dl (14.0-18.0); iSTAT Potassium 3.5 mmol/L (3.3-5.0); iSTAT Sodium 130 mmol/L (135-144)
[2023-11-27] MEDS: FUROSEMIDE INJ 20 MG/2 ML VIAL IV STA (16:40)
[2023-11-27] MEDS: MEROPENEM 500 MG in SYRINGE 0 ML IV SCH (17:13)
[2023-11-27] MEDS: VANCOMYCIN HCL 750 MG in SODIUM CHLORIDE 0.9% 250 ML IV SCH (17:13)
[2023-11-27] MEDS: ACETAMINOPHEN 1,000 MG/100 ML VIAL IV STA (17:16)
[2023-11-27 19:12] LABS: ANTI-Xa, UFH(UnfractionatedHep < 0.10 IU/ml (0.3-0.7)
[2023-11-27] MEDS ORDERED: HEPARIN SOD (PORCINE) 1000 UNIT/ML IV ONE (19:39)
[2023-11-27] MEDS: HEPARIN IV BOLUS 4,000 UNITS in SYRINGE 0 ML IV ONE (20:33)
[2023-11-27] MEDS: MoRPHine SULFATE 2 MG/ML CARP IV STA (23:00)
[2023-11-28] MEDS: oxyCODONE HCL IR 5 MG TAB (IMMEDIATE RELEASE) PO PRN ×2 (05:51→13:43)
[2023-11-28 06:09] LABS: Creatinine Clr Calc Pharmacy 65.5 ml/min; Est GFR (African American) 107.2 ml/min; Est GFR (Non-African American) 92.5 ml/min
[2023-11-28 06:21] LABS: ANTI-Xa, UFH(UnfractionatedHep < 0.10 IU/ml (0.3-0.7)
[2023-11-28 07:02] LABS: Estimated Average Glucose 134 mg/dl; Hemoglobin A1C 6.3 % (4.5-5.6)
--- NOTE | 2023-11-28 08:15 | XRay Report ---
XR chest 1V portable HISTORY: 62 years-old Male hypoxia acute hypoxia COMPARISON: 11/27/2023 TECHNIQUE: AP view of the chest FINDINGS: Right lung pulmonary metastasis redemonstrated. Interstitial coarsening within the right lung with pr ogressive right basilar consolidation. Pulmonary vascular congestion. Unchanged appearance of the lef t hemithorax with near complete opacification. Bones appear grossly intact. IMPRESSION: 1. Right lung pulmonary edema with progressive right basilar consolidation suspicious for pneumonia v ersus aspiration pneumonitis . 2. Pulmonary metastasis is better seen on the comparison CTA of the chest. 3. Unchanged appearance of the left hemithorax. ACT 112: Negative or not required by law. The above report was generated using voice recognition software. It may contain grammatical, syntax o r spelling errors. Electronically signed by: Luis Miguel Peoples M.D. 11/28/2023 8:13 AM
[2023-11-28] MEDS: MoRPHine SULFATE 2 MG/ML CARP IV STA (08:55)
[2023-11-28] MEDS: HEPARIN SOD (PORCINE) 1000 UNIT/ML IV ONE (08:58)
[2023-11-28 10:48] LABS: Hematocrit (blood only) 33.5 % (42.0-52.0); Hemoglobin 10.4 g/dl (14.0-18.0); Mean Corpuscular Hemoglobin 24.4 pg (25.0-34.0); Mean Corpuscular Volume 78.5 fL (80.0-100.0); Mean Platelet Volume 10.1 fL (9.4-12.4); Platelet Count 386 K/uL (130-400); RDW Coefficient of Variation 15.1 % (11.5-14.5); Red Blood Count 4.27 M/uL (4.70-6.10); White Blood Count 21.07 K/ul (4.8-10.8)
[2023-11-28 10:57] LABS: Calcium 8.8 mg/dl (8.6-10.3); Creatinine Clr Calc Pharmacy 90.9 ml/min; Est GFR (African American) 117.9 ml/min; Est GFR (Non-African American) 101.7 ml/min; Magnesium 1.8 mg/dl (1.7-2.4); Phosphorus 4.1 mg/dl (2.5-4.9); Potassium 4.3 mmol/L (3.5-5.1)
--- NOTE | 2023-11-28 11:26 | Pharmacy Report ---
Pharmacy PK ABX Note - Date of Service November 28, 2023 - Assessment and Plan Assessment 11/28: MRSA nasal swab positive. Sputum culture pending. Blood cultures negative at 24 hours. Current dose now predicting below target AUC/EFRA will adjust empirically and order random level 11/27 62 year old M started empirically on vancomycin and meropenem for possible pneumonia. PMHx significant for stage IV non-small cell lung cancer s/p chemo and radiation, now on immunotherapy, COPD, hx MRSA bacteremia, hx necrotizing pneumonia, chronic hepatitis C, DM2. Presenting to hospital with racing heart rate, found to have new onset afib. Also notes, increased cough/sputum over last few days. Day #2 of antimicrobial therapy. Plan Vancomycin * Loading dose: 1000 mg iv x 1 (given in ER) * Current Maintenance dose: 750 mg IV every 12 hours * Adjust to 750 mg IV every 12 Hours * Regimen is predicted to achieve target AUC/EFRA of 400-600 mg/L.hr * Plan to collect random vancomycin level with AM labs Pharmacy will continue to follow and will adjust dose/frequency as necessary. Thank you. Pharmacy has transitioned to AUC monitoring for vancomycin. AUC/EFRA is the preferred PK/PD target and is associated with decreased risk of nephrotoxicity compared to traditional trough targets.
[2023-11-28 12:29] LABS: Acanthocytes 2+; Basophilic Stippling 1+; Basophils # (auto) 0.06 K/uL (0.00-0.20); Basophils % (auto) 0.3 %; Echinocytes 3+; Eosinophils # (auto) 0.05 K/uL (0.00-0.50); Eosinophils % (auto) 0.2 %; Immature Granulocytes # (auto) 0.28 K/uL (0.01-0.20); Immature Granulocytes % (auto) 1.3 %; Lymphocytes # (auto) 0.36 K/uL (1.20-3.40); Lymphocytes % (auto) 1.7 %; Monocytes # (auto) 0.67 K/uL (0.11-0.59); Monocytes % (auto) 3.2 %; Neutrophils # (auto) 19.65 K/uL (1.40-6.50); Neutrophils % (auto) 93.3 %; Polychromasia 1+
[2023-11-28] MEDS: VANCOMYCIN HCL 750 MG in SODIUM CHLORIDE 0.9% 250 ML IV SCH (13:44)
[2023-11-28] MEDS: ACETAMINOPHEN 325 MG TAB PO PRN (13:44)
--- NOTE | 2023-11-28 13:54 | Hospitalist Progress Note ---
Date of Service November 28, 2023 Assessment & Plan (1) Atrial fibrillation with RVR: Plan: 62 y/o male with history of stage IV non-small cell lung cancer s/p chemo and radiation, now on immunotherapy, COPD, prior smoker, hx MRSA bacteremia, hx necrotizing pneumonia, chronic hepatitis C, diet-controlled DM2, and other history who presented to the ED via EMS with racing heart and trouble breathing Found to have new onset afib with RVR in the field. Work-up also consistent with Sepsis, likely due to pneumonia related to obstruction from known lung cancer. Initially got IV diltiazem Evaluated by Cardiology and changed to metoprolol Flipped back to Sinus rhythm on night of 11/27/23 Continue hep gtt for now. (2) Sepsis: (3) Acute hypoxic respiratory failure: (4) Pneumonia: Plan: Post-obstructive due to known malignancy Pt has a history of MRSA bacteremia MRSA is also positive Chest CT did not show any PE but noted increasing size of left perihilar necrotic mass. Lesion measures approximately 7.5 x 5.6 cm [previously 6 x 4 cm], increase in size of 10 x 6.4 cm fluid and gas containing cavity within the left hemithorax, moderate left pleural effusion similar to prior, no significant change in mediastinal and left supraclavicular lymphadenopathy and several right lung metastasis interstitial edema and right lung, alveolar opacities within the right lung reflective of pulmonary edema superimposed infectious process. Leukocytosis of 21,000 Continue broad spectrum antibiotics (Vanc and meropenem) Follow-up blood cultures. Discussed with workforce analyst today. Chest x-ray today noted right lung pulmonary edema with progressive right basilar consolidation. IV Lasix ordered today. Continue oxygen supplementation and wean as tolerated (5) Hypotension: Plan: Was hypotensive in the ER. BP responded to IV fluid boluses. Monitor (6) Metastatic primary lung cancer: Plan: Pt currently following with Dr. Lazaro for oncology and is on immunotherapy Optimized pain control Continue antitussives (7) Hyponatremia: Plan: Na was 128 on admission Na is 131 today Monitor (8) Hepatitis C: Plan: Chronic, stable. Plan Code Status: Full code for now DVT Prophylaxis: on heparin gtt Initiated GOC discussion Palliative consult I spent a total of 50 minutes coordinating, documenting and providing care for this patient excluding time spent in performance of separately billed services Admission and Anticipated Discharge Date Admission Date: November 27, 2023 Subjective Patient seen and examined. Reports productive cough, chest pain associated with cough, shortness of breath, chronic pains in the neck. Denies fever, chills. Denies nausea or vomiting today. Denies diarrhea. Was in A-fib and flipped to normal sinus rhythm last night. Physical Exam Constitutional: + well hydrated and + thin; no acute dis tress Chronically ill-appearing Eyes: PERRL, conjunctivae normal, anicteric sclerae ENMT: external ear and nose normal, oropharynx normal Respiratory: normal respiratory effort; no respiratory distress Decreased entry left lung. Right lung crackles Cardiovascular: Rate/Rhythm: regular rate and regular rhythm S1-S2 Gastrointestinal (Abdomen): normal bowel sounds, soft, nontender, no hepatosplenomegaly Musculoskeletal: No pedal edema Neurologic: PERRL, EOMI, accommodation nl, no face palsy, no dysarthria Psychiatric: A+Ox3, euthymic affect Results & Data Results & Data Vital Signs (Past 12 Hours) Vital Signs Temp Pulse Pulse Resp BP Pulse Ox O2 Del Method 11/28/23 10:40 36.4 C L 96 H 18 107/71 97 Nasal Cannula 11/28/23 08:00 105 H 11/28/23 08:00 Nasal Cannula 11/28/23 07:31 36.5 C 91 H 18 107/74 96 Nasal Cannula 11/28/23 05:57 106 H 128/87 11/28/23 03:49 35.8 C L 87 28 H 118/87 99 BiPAP 11/28/23 03:05 102 H 24 100 O2 Flow Rate FiO2 11/28/23 10:40 4 11/28/23 08:00 11/28/23 08:00 4 11/28/23 07:31 4 11/28/23 05:57 11/28/23 03:49 40 11/28/23 03:05 40 Laboratory Results Abnormal lab results 11/27/23 11/28/23 11/28/23 Range/Units 18:44 05:30 07:38 WBC (4.8-10.8) K/ul RBC (4.70-6.10) M/uL Hgb (14.0-18.0) g/dl Hct (42.0-52.0) % MCV (80.0-100.0) fL MCH (25.0-34.0) pg MCHC (32.0-36.0) g/dL RDW Coeff of Mathieu (11.5-14.5) % Neut # (Auto) (1.40-6.50) K/uL Lymph # (Auto) (1.20-3.40) K/uL [facility] # (Auto) (0.11-0.59) K/uL Immature Gran # (Auto) (0.01-0.20) K/uL Heparin Anti-Xa, Unfract < 0.10 L < 0.10 L (0.3-0.7) IU/ml Sodium (136-145) mmol/L Carbon Dioxide (21-32) mmol/L Anion Gap (3-11) BUN (6-23) mg/dl BUN/Creatinine Ratio (10-20) Glucose (70-99(Fasting)) mg/dl Hemoglobin A1c 6.3 H (4.5-5.6) % B-Natriuretic Peptide 377 H (0-100) pg/ml Procalcitonin 3.79 H (0-0.5) ng/ml Nasal Screen MRSA (PCR) Positive A (Negative) 11/28/23 11/28/23 Range/Units 10:20 15:18 WBC 21.07 H (4.8-10.8) K/ul RBC 4.27 L (4.70-6.10) M/uL Hgb 10.4 L (14.0-18.0) g/dl Hct 33.5 L (42.0-52.0) % MCV 78.5 L (80.0-100.0) fL MCH 24.4 L (25.0-34.0) pg MCHC 31.0 L (32.0-36.0) g/dL RDW Coeff of Mathieu 15.1 H (11.5-14.5) % Neut # (Auto) 19.65 H (1.40-6.50) K/uL Lymph # (Auto) 0.36 L (1.20-3.40) K/uL [facility] # (Auto) 0.67 H (0.11-0.59) K/uL Immature Gran # (Auto) 0.28 H (0.01-0.20) K/uL Heparin Anti-Xa, Unfract < 0.10 L (0.3-0.7) IU/ml Sodium 131 L (136-145) mmol/L Carbon Dioxide 19 L (21-32) mmol/L Anion Gap 13 H (3-11) BUN 29 H (6-23) mg/dl BUN/Creatinine Ratio 42.0 H (10-20) Glucose 158 H (70-99(Fasting)) mg/dl Hemoglobin A1c (4.5-5.6) % B-Natriuretic Peptide (0-100) pg/ml Procalcitonin (0-0.5) ng/ml Nasal Screen MRSA (PCR) (Negative) (2) Sepsis Sepsis type: sepsis due to unspecified organism Sepsis acute organ dysfunction status: with acute organ dysfunction Severe sepsis acute organ dysfunction type: acute respiratory failure Acute respiratory failure type: with hypoxia Severe sepsis shock status: unspecified Qualified Code(s): A41.9 - Sepsis, unspecified organism; R65.20 - Severe sepsis without septic shock; J96.01 - Acute respiratory failure with hypoxia (4) Pneumonia Laterality: unspecified laterality Lung location: unspecified part of lung Pneumonia type: due to unspecified organism Qualified Code(s): J18.9 - Pneumonia, unspecified organism (5) Hypotension Hypotension type: unspecified hypotension type Qualified Code(s): I95.9 - Hy potension, unspecified (6) Metastatic primary lung cancer Laterality: left Qualified Code(s): C34.92 - Malignant neoplasm of unspecified part of left bronchus or lung (8) Hepatitis C Viral hepatitis chronicity: chronic Hepatic coma status: without hepatic coma Qualified Code(s): B18.2 - Chronic viral hepatitis C
[2023-11-28] MEDS: MoRPHine SULFATE 2 MG/ML CARP IV PRN (14:39)
--- NOTE | 2023-11-28 16:20 | Pulmonology Progress Note ---
Date of Service November 28, 2023 Assessment & Plan (1) Acute hypoxic respiratory failure: (2) Sepsis: Acute respiratory failure type: with hypoxia Sepsis acute organ dysfunction status: with acute organ dysfunction Sepsis type: sepsis due to unspecified organism Severe sepsis acute organ dysfunction type: acute respiratory failure Severe sepsis shock status: unspecified Qualified Code(s): A41.9 - Sepsis, unspecified organism; R65.20 - Severe sepsis without septic shock; J96.01 - Acute respiratory failure with hypoxia (3) Pneumonia: Laterality: unspecified laterality Lung location: unspecified part of lung Pneumonia type: due to unspecified organism Qualified Code(s): J 18.9 - Pneumonia, unspecified organism (4) Squamous cell carcinoma of left lung: (5) Abnormal chest CT: (6) Hydropneumothorax: (7) Metastatic primary lung cancer: Laterality: left Qualified Code(s): C34.92 - Malignant neoplasm of unspecified part of left bronchus or lung Plan CT chest 11/27/2023 personally reviewed: Moderate left-sided hydropneumothorax with collapse of the left lung Centrilobular emphysema on the right side Minimal patchy groundglass opacities appreciated in the right lower lobe with some interlobular thickening Mediastinal shift to the left The mass seems to be increased in size of the left hydropneumothorax 2D echo 11/27/2023: EF 50-55%, global hypokinesis of the left ventricle, mild concentric LVH, moderate MR, RV normal in size and function ABG 11/27/2023: 7.45/29/98 -- New right lower lobe pneumonia Does have issues with swallowing, could be aspiration Procalcitonin 3.79, BNP 377 Nasal MRSA positive --Left-sided hydropneumothorax No need for any intervention --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 He still thinking about continuing or giving a chance of immunotherapy Case was discussed with MICHELLE and primary team Please note the above document was generated using voice recognition software. It may contain grammatical, syntax or spelling errors.Any formal questions or concerns about the content, text or information contained within the body of this dictation should be directly addressed to the provider for clarification. Admission and Anticipated Discharge Date Admission Date: November 27, 2023 Subjective Patient seen and examined at bedside. No acute distress, notable since overnight He said that he is feeling better compared to when he came to the hospital He was saturating 98% on 4 L nasal cannula. I went down to 2 L Does complain of chest congestion and difficulty bringing up the phlegm Patient's girlfriend was in the room at the time of examination Review of Systems 2 Review of Systems: All systems reviewed & are unremarkable except as noted in Subjective Physical Exam 2 Physical Exam: Constitutional: No acute distress, frail-appearing HEENT: EOMI, PERRLA Respiratory system: Decreased air entry on the left side, no wheeze, no rhonchi, positive crackles right lower lobe CVS: S1-S2 positive, no murmurs or gallops Abdomen: Soft, nontender, nondistended, positive bowel sounds x4 Extremities: +2 pulses bilaterally radialis/ dorsalis pedis, no cyanosis, no edema, no clubbing Neuro: Awake alert oriented x3 Psych: Normal mood and affect G/U: Positive Cosby Skin: no rashes, warm and dry Lymphatic: no cervical or axillary lymphadenopathy Results & Data Results & Data Vital Signs (Past 12 Hours) Vital Signs Temp Pulse Pulse Resp BP Pulse Ox O2 Del Method 11/28/23 15:23 89 11/28/23 10:40 36.4 C L 96 H 18 107/71 97 Nasal Cannula 11/28/23 08:00 105 H 11/28/23 08:00 Nasal Cannula 11/28/23 07:31 36.5 C 91 H 18 107/74 96 Nasal Cannula 11/28/23 05:57 106 H 128/87 O2 Flow Rate 11/28/23 15:23 11/28/23 10:40 4 11/28/23 08:00 11/28/23 08:00 4 11/28/23 07:31 4 11/28/23 05:57 Laboratory Results 11/28/23 10:20 11/28/23 10:20 PG Care Time/CCT Total # of Minutes Spent Total Time Spent with Patient: Total time spent is greater than 50% in coordination of care (as documented) at patient's floor/unit and/or counseling patient: Coding Level of Care Code 59017 SUB INP/OBS CARE 3/50MIN Diagnoses Acute hypoxic respiratory failure J96.01 Sepsis with acute hypoxic respiratory failure, due to unspecified organism, unspecified whether septic shock present A41.9; R65.20; J96.01 Acute respiratory failure type: with hypoxia Sepsis acute organ dysfunction status: with acute organ dysfunction Sepsis type: sepsis due to unspecified organism Severe sepsis acute organ dysfunction type: acute respiratory failure Severe sepsis shock status: unspecified Pneumonia J18.9 Laterality: unspecified laterality Lung location: unspecified part of lung Pneumonia type: due to unspecified organism Squamous cell carcinoma of left lung C34.[address] R93.89 Hydropneumothorax J94.8 Primary malignant neoplasm of left lung metastatic to other site C34.92 Laterality: left
[2023-11-28 16:22] LABS: ANTI-Xa, UFH(UnfractionatedHep < 0.10 IU/ml (0.3-0.7)
[2023-11-28] MEDS ORDERED: HEPARIN SOD (PORCINE) 1000 UNIT/ML IV ONE (16:38)
[2023-11-28] MEDS: FUROSEMIDE INJ 20 MG/2 ML VIAL IV ONE (16:44)
[2023-11-28] MEDS: HEPARIN IV BOLUS 4,000 UNITS in SYRINGE 0 ML IV ONE (17:29)
--- NOTE | 2023-11-28 18:02 | Cardiology Progress Note ---
Date of Service November 28, 2023 Assessment & Plan (1) Atrial fibrillation with RVR: (2) Acute hypoxic respiratory failure: (3) Squamous cell carcinoma of left lung: Plan IMPRESSION: Medically complex 62 year old male who presents to [facility] due to sudden onset of a cute respiratory failure. Patient has known metastatic left lung cancer. Found to be in new onset AFIB RVR--highly symptomatic with shortness of breath, tachy-palpitations, and fluid retention. Chest CT performed 11/27/2023 reveals occlusion of the left pulmonary artery by a perihilar mass measuring 7.5 x 5.6 cm previously 6 x 4 cm. There is resultant occlusion of the left mainstem bronchus. Findings of left-sided hydropneumothorax PLAN: * Volume status improved. * Continue metoprolol tartrate 25 mg p.o. 4 times daily * Continue heparin for stroke prophylaxis * Prognosis is poor with noted chest x-ray findings of chronic opacification of the left lung almaguer. This chart was completed in part utilizing Speech Voice Recognition Software. Grammatical errors, random word insertions, pronoun errors, and incomplete sentences are an occasional consequence of this system due to software limitations, ambient noise, and hardware issues. Any formal questions or concerns about the content, text, or information contained within the body of this dictation should be directly addressed to the provider for clarification. Admission and Anticipated Discharge Date Admission Date: November 27, 2023 Subjective Patient seen in cardiology follow-up. Comfortable, sitting upright, eating his evening meal. Sinus rhythm in the 90s noted on telemetry. He had converted from atrial fibrillation with rapid ventricular response to sinus rhythm on 11/27/2023 at 2140 without conversion pause. Physical Exam Constitutional: + ill appearing, + cachectic and + frail appearing; no acute distress Eyes: PERRL, conjunctivae normal, anicteric sclerae Neck: normal visual inspection and trachea midline Respiratory: + cough and able to speak in complete se ntences; no respiratory distress Auscultation: + wheezes (right lung with mild diffuse wheezing, no B S in left lung ) Cardiovascular: Rate/Rhythm: + tachycardic and + irregularly irregular Heart Sounds: normal S1, normal S2 (distant heart sounds.) and + murmur (unable to assess) Extremities: + pedal edema and + edema (1+ LE edea ) Gastrointestinal (Abdomen): Percussion/Palpation: abdomen soft; abdomen nontender Skin: no rashes, warm and dry Psychiatric: Orientation: alert and oriented x 3 Results & Data Vital Signs (Past 12 Hours) Vital Signs Temp Pulse Pulse Resp BP Pulse Ox O2 Del Method 11/28/23 15:38 36.4 C L 89 17 96/67 L 98 Nasal Cannula 11/28/23 15:23 89 11/28/23 10:40 36.4 C L 96 H 18 107/71 97 Nasal Cannula 11/28/23 08:00 105 H 11/28/23 08:00 Nasal Cannula 11/28/23 07:31 36.5 C 91 H 18 107/74 96 Nasal Cannula O2 Flow Rate 11/28/23 15:38 4 11/28/23 15:23 11/28/23 10:40 4 11/28/23 08:00 11/28/23 08:00 4 11/28/23 07:31 4
--- NOTE | 2023-11-28 18:15 | Electrocardiogram Report ---
Test Reason : Blood Pressure : / mmHG Vent. Rate : 106 BPM Atrial Rate : 106 BPM P-R Int : 112 ms QRS Dur : 086 ms QT Int : 342 ms P-R-T Axes : 070 056 046 degrees QTc Int : 454 ms Sinus tachycardia with Premature atrial complexes Otherwise normal ECG When compared with ECG of 27-NOV-2023 07:36, Sinus rhythm has replaced Atrial fibrillation ST no longer depressed in Inferior leads ST no longer depressed in Anterolateral leads Confirmed by Kevin Higginbotham ([id number]) on 11/28/2023 6:14:40 PM Referred By: REFERRED SELF Confirmed By:Kevin Higginbotham
[2023-11-28] MEDS: SODIUM CHLOR 7% 4 ML NEB NEB SCH (19:50)
[2023-11-28] MEDS: FORMOTEROL 20 MCG/2 ML VIAL INH SCH (19:50)
[2023-11-28] MEDS: BUDESONIDE 0.25 MG/2 ML VIAL (PULMICORT) NEB SCH (19:50)
[2023-11-28] MEDS: guaiFENesin 600 MG TABCR PO SCH (20:12)
[2023-11-28 23:34] LABS: ANTI-Xa, UFH(UnfractionatedHep < 0.10 IU/ml (0.3-0.7)
[2023-11-29] MEDS: HEPARIN IV BOLUS 4,000 UNITS in SYRINGE 0 ML IV ONE ×2 (00:18→11:55)
[2023-11-29 05:49] LABS: Hematocrit (blood only) 29.2 % (42.0-52.0); Hemoglobin 9.1 g/dl (14.0-18.0); Mean Corpuscular Hemoglobin 24.1 pg (25.0-34.0); Mean Corpuscular Hgb Conc 31.2 g/dL (32.0-36.0); Mean Corpuscular Volume 77.5 fL (80.0-100.0); Mean Platelet Volume 9.7 fL (9.4-12.4); Platelet Count 317 K/uL (130-400); RDW Coefficient of Variation 15.2 % (11.5-14.5); RDW Standard Deviation 41.9 fL (36.4-46.3); Red Blood Count 3.77 M/uL (4.70-6.10); White Blood Count 15.15 K/ul (4.8-10.8)
[2023-11-29 06:08] LABS: Albumin Globulin Ratio 0.9 (0.9-2); Albumin Level 2.6 gm/dl (3.4-5.0); Bilirubin,Total 0.3 mg/dl (0.2-1.0); Calcium 8.8 mg/dl (8.6-10.3); Creatinine Clr Calc Pharmacy 104.5 ml/min; Est GFR (African American) 124.9 ml/min; Est GFR (Non-African American) 107.8 ml/min; Magnesium 1.9 mg/dl (1.7-2.4); Phosphorus 2.9 mg/dl (2.5-4.9); Potassium 3.7 mmol/L (3.5-5.1); Total Protein 5.6 gm/dl (6.0-8.3)
--- NOTE | 2023-11-29 07:54 | Electrocardiogram Report ---
Test Reason : Blood Pressure : / mmHG Vent. Rate : 092 BPM Atrial Rate : 092 BPM P-R Int : 120 ms QRS Dur : 092 ms QT Int : 356 ms P-R-T Axes : 052 046 022 degrees QTc Int : 440 ms Normal sinus rhythm Nonspecific T wave abnormality Otherwise Normal ECG When compared with ECG of 28-NOV-2023 05:40, (unconfirmed) Premature atrial complexes are no longer Present T wave inversion now evident in Anterior leads Confirmed by Kevin Higginbotham ([id number]) on 11/29/2023 7:53:33 AM Referred By: REFERRED SELF Confirmed By:Kevin Higginbotham
[2023-11-29 09:36] LABS: ANTI-Xa, UFH(UnfractionatedHep < 0.10 IU/ml (0.3-0.7)
--- NOTE | 2023-11-29 09:43 | Pulmonology Progress Note ---
Date of Service November 29, 2023 Assessment & Plan (1) Acute hypoxic respiratory failure: (2) Sepsis: Acute respiratory failure type: with hypoxia Sepsis acute organ dysfunction status: with acute organ dysfunction Sepsis type: sepsis due to unspecified organism Severe sepsis acute organ dysfunction type: acute respiratory failure Severe sepsis shock status: unspecified Qualified Code(s): A41.9 - Sepsis, unspecified organism; R65.20 - Severe sepsis without septic shock; J96.01 - Acute respiratory failure with hypoxia (3) Pneumonia: Laterality: unspecified laterality Lung location: unspecified part of lung Pneumonia type: due to unspecified organism Qualified Code(s): J 18.9 - Pneumonia, unspecified organism (4) Squamous cell carcinoma of left lung: (5) Abnormal chest CT: (6) Hydropneumothorax: (7) Metastatic primary lung cancer: Laterality: left Qualified Code(s): C34.92 - Malignant neoplasm of unspecified part of left bronchus or lung Plan CT chest 11/27/2023 personally reviewed: Moderate left-sided hydropneumothorax with collapse of the left lung Centrilobular emphysema on the right side Minimal patchy groundglass opacities appreciated in the right lower lobe with some interlobular thickening Mediastinal shift to the left The mass seems to be increased in size of the left hydropneumothorax 2D echo 11/27/2023: EF 50-55%, global hypokinesis of the left ventricle, mild concentric LVH, moderate MR, RV normal in size and function ABG 11/27/2023: 7.45/29/98 -- New right lower lobe pneumonia Does have issues with swallowing, could be aspiration Procalcitonin 3.79, BNP 377 Nasal MRSA positive --Left-sided hydropneumothorax No need for any intervention --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 Consider giving another 20 mg in the evening Case was discussed with RN and primary team Please note the above document was generated using voice recognition software. It may contain grammatical, syntax or spelling errors.Any formal questions or concerns about the content, text or information contained within the body of this dictation should be directly addressed to the provider for clarification. Admission and Anticipated Discharge Date Admission Date: November 27, 2023 Subjective Patient seen and examined at bedside. No acute distress, no adverse events overnight Denies any headache, no nausea, no vomiting. Urinating well. Still complaining of cough and difficulty bringing it up. Fair appetite Was saturating 97% on 3 L nasal cannula. I went down to 1 L Review of Systems 2 Review of Systems: All systems reviewed & are unremarkable except as noted in Subjective Physical Exam 2 Physical Exam: Constitutional: No acute distress, frail-appearing HEENT: EOMI, PERRLA Respiratory system: Decreased air entry on the left side, no wheeze, no rhonchi, positive crackles right lower lobe CVS: S1-S2 positive, no murmurs or gallops Abdomen: Soft, nontender, nondistended, positive bowel sounds x4 Extremities: +2 pulses bilaterally radialis/ dorsalis pedis, no cyanosis, no edema, no clubbing Neuro: Awake alert oriented x3 Psych: Normal mood and affect G/U: Positive Cosby Skin: no rashes, warm and dry Lymphatic: no cervical or axillary lymphadenopathy Results & Data Results & Data Vital Signs (Past 12 Hours) Vital Signs Temp Pulse Pulse Resp BP Pulse Ox O2 Del Method 11/29/23 07:33 36.2 C L 80 20 98/61 L 97 Nasal Cannula 11/29/23 07:18 77 18 93 Nasal Cannula 11/29/23 05:34 89 100/64 11/29/23 03:09 36.8 C 84 18 110/81 93 Nasal Cannula 11/28/23 23:31 87 11/28/23 23:00 36.6 C 84 16 99/65 L 93 Nasal Cannula O2 Flow Rate 11/29/23 07:33 3 11/29/23 07:18 3 11/29/23 05:34 11/29/23 03:09 4 11/28/23 23:31 11/28/23 23:00 4 Laboratory Results 11/29/23 05:21 11/29/23 05:21 PG Care Time/CCT Total # of Minutes Spent Total Time Spent with Patient: Total time spent is greater than 50% in coordination of care (as documented) at patient's floor/unit and/or counseling patient: Coding Level of Care Code 24346 SUB INP/OBS CARE 2/35MIN Diagnoses Acute hypoxic respiratory failure J96.01 Sepsis with acute hypoxic respiratory failure, due to unspecified organism, unspecified whether septic shock present A41.9; R65.20; J96.01 Acute respiratory failure type: with hypoxia Sepsis acute organ dysfunction status: with acute organ dysfunction Sepsis type: sepsis due to unspecified organism Severe sepsis acute organ dysfunction type: acute respiratory failure Severe sepsis shock status: unspecified Pneumonia J18.9 Laterality: unspecified laterality Lung location: unspecified part of lung Pneumonia type: due to unspecified organism Squamous cell carcinoma of left lung C34.[address] R93.89 Hydropneumothorax J94.8 Primary malignant neoplasm of left lung metastatic to other site C34.92 Laterality: left
[2023-11-29] MEDS: FUROSEMIDE INJ 20 MG/2 ML VIAL IV ONE ×2 (10:11→18:04)
--- NOTE | 2023-11-29 11:30 | Pharmacy Report ---
Pharmacy PK ABX Note - Date of Service November 29, 2023 - Assessment and Plan Assessment 11/29: Level this morning drawn as a trough, 12.9 mcg/mL predicts therapeutic dosing. Will continue current dose for now 11/28: MRSA nasal swab positive. Sputum culture pending. Blood cultures negative at 24 hours. Current dose now predicting below target AUC/EFRA will adjust empirically and order random level 11/27 62 year old M started empirically on vancomycin and meropenem for possible p neumonia. PMHx significant for stage IV non-small cell lung cancer s/p chemo and radiation, now on immunotherapy, COPD, hx MRSA bacteremia, hx necrotizing pneumonia, chronic hepatitis C, DM2. Presenting to hospital with racing heart rate, found to have new onset afib. Also notes, increased cough/sputum over last few days. Day #2 of antimicrobial therapy. Plan Vancomycin * Loading dose: 1000 mg iv x 1 (given in ER) * Continue 750 mg IV every 8 Hours * Regimen is predicted to achieve target AUC/EFRA of 400-600 mg/L.hr * Order additional level in 2-3 days. Pharmacy will continue to follow and will adjust dose/frequency as necessary. Thank you. Pharmacy has transitioned to AUC monitoring for vancomycin. AUC/EFRA is the preferred PK/PD target and is associated with decreased risk of nephrotoxicity compared to traditional trough targets.
[2023-11-29 11:47] LABS: Partial Thromboplastin Ratio 1.2; Partial Thromboplastin Time 33 Seconds (21-31)
--- NOTE | 2023-11-29 14:00 | Hospitalist Progress Note ---
Date of Service November 29, 2023 Assessment & Plan (1) Atrial fibrillation with RVR: Plan: 62 y/o male with history of stage IV non-small cell lung cancer s/p chemo and radiation, now on immunotherapy, COPD, prior smoker, hx MRSA bacteremia, hx necrotizing pneumonia, chronic hepatitis C, diet-controlled DM2, and other history who presented to the ED via EMS with racing heart and trouble breathing Found to have new onset afib with RVR in the field. Work-up also consistent with Sepsis, likely due to pneumonia related to obstruction from known lung cancer. Initially got IV diltiazem Evaluated by Cardiology Flipped back to Sinus rhythm on night of 11/27/23 Metoprolol tartarate 25mg q6h changed to metoprolol succinate 50mg BID Currently on hep gtt. However antiXa has not shown adequate anticoagulation Discussed with Dr Fenton. Suggests patient may have antithrombin deficiency but eliquis should be fine Started on eliquis 5mg bid (2) Sepsis: (3) Acute hypoxic respiratory failure: (4) Pneumonia: Plan: Post-obstructive due to known malignancy Pt has a history of MRSA bacteremia MRSA is also positive Chest CT did not show any PE but noted increasing size of left perihilar n ecrotic mass. Lesion measures approximately 7.5 x 5.6 cm [previously 6 x 4 cm], increase in size of 10 x 6.4 cm fluid and gas containing cavity within the left hemithorax, moderate left pleural effusion similar to prior, no significant change in mediastinal and left supraclavicular lymphadenopathy and several right lung metastasis interstitial edema and right lung, alveolar opacities within the right lung reflective of pulmonary edema superimposed infectious process. Leukocytosis of 21,000 on admission WBC improving, 15k today Continue broad spectrum antibiotics (Vanc and meropenem) Follow-up blood cultures. Discussed with electronics technology department chair today. All cell lines had dropped. Likely dilutional As needed iv lasix Monitor I/O and electrolytes Continue oxygen supplementation and wean as tolerated (5) Hypotension: Plan: Was hypotensive in the ER. BP responded to IV fluid boluses. Monitor (6) Metastatic primary lung cancer: Plan: Pt currently following with Dr. Lazaro for oncology and is on immunotherapy Optimized pain control Continue antitussives (7) Hyponatremia: Plan: Na was 128 on admission Na is 132 today Monitor (8) Hepatitis C: Plan: Chronic, stable. Plan Code Status:Patient reported he wants his code status changed to DNR DVT Prophylaxis: Shilpa Ongoing [facility] Palliative consult I spent a total of 50 minutes coordinating, documenting and providing care for this patient excluding time spent in performance of separately billed services Admission and Anticipated Discharge Date Admission Date: November 27, 2023 Physical Exam Constitutional: + well hydrated and + thin; no acute dis tress Eyes: PERRL, conjunctivae normal, anicteric sclerae ENMT: external ear and nose normal, oropharynx normal Respiratory: normal respiratory effort; no respiratory distress Cardiovascular: Rate/Rhythm: regular rate and regular rhythm Gastrointestinal (Abdomen): normal bowel sounds, soft, nontender, no hepatosplenomegaly Neurologic: PERRL, EOMI, accommodation nl, no face palsy, no dysarthria Psychiatric: A+Ox3, euthymic affect Results & Data Results & Data Vital Signs (Past 12 Hours) Vital Signs Temp Pulse Pulse Resp BP Pulse Ox O2 Del Method 11/29/23 11:56 36.9 C 91 H 18 116/77 98 Nasal Cannula 11/29/23 08:00 87 11/29/23 08:00 Nasal Cannula 11/29/23 07:33 36.2 C L 80 20 98/61 L 97 Nasal Cannula 11/29/23 07:18 77 18 93 Nasal Cannula 11/29/23 05:34 89 100/64 11/29/23 03:09 36.8 C 84 18 110/81 93 Nasal Cannula O2 Flow Rate 11/29/23 11:56 4 11/29/23 08:00 11/29/23 08:00 3 11/29/23 07:33 3 11/29/23 07:18 3 11/29/23 05:34 11/29/23 03:09 4 (2) Sepsis Acute respiratory failure type: with hypoxia Sepsis acute organ dysfunction status: with acute organ dysfunction Sepsis type: sepsis due to unspecified organism Severe sepsis acute organ dysfunction type: acute respiratory failure Severe sepsis shock status: unspecified Qualified Code(s): A41.9 - Sepsis, unspecified organism; R65.20 - Severe sepsis without septic shock; J96.01 - Acute respiratory failure with hypoxia (4) Pneumonia Laterality: unspecified laterality Lung location: unspecified part of lung Pneumonia type: due to unspecified organism Qualified Code(s): J18.9 - Pneumonia, unspecified organism (5) Hypotension Hypotension type: unspecified hypotension type Qualified Code(s): I95.9 - Hypotension, unspecified (6) Metastatic primary lung cancer Laterality: left Qualified Code(s): C34.92 - Malignant neoplasm of unspecified part of left bronchus or lung (8) Hepatitis C Hepatic coma status: without hepatic coma Viral hepatitis chronicity: chronic Qualified Code(s): B18.2 - Chronic viral hepatitis C
--- NOTE | 2023-11-29 16:02 | Communication Note ---
Date of Service: November 29, 2023 Telemetry reviewed revealing sinus rhythm 80s without recurrent atrial fibrillation thus far. Recommend transitioning from Toprol tartrate 25 mg by mouth every 6 hours to succinate formulation 50 mg twice daily.
[2023-11-29] MEDS: APIXABAN 5 MG TABLET PO SCH (21:01)
[2023-11-30 07:09] LABS: Mean Corpuscular Hemoglobin 24.2 pg (25.0-34.0); Mean Platelet Volume 9.9 fL (9.4-12.4); Platelet Count 358 K/uL (130-400); RDW Coefficient of Variation 15.2 % (11.5-14.5); RDW Standard Deviation 41.8 fL (36.4-46.3); Red Blood Count 3.72 M/uL (4.70-6.10); White Blood Count 15.08 K/ul (4.8-10.8)
[2023-11-30 07:31] LABS: Albumin Globulin Ratio 0.9 (0.9-2); Albumin Level 2.6 gm/dl (3.4-5.0); BUN Creatinine Ratio 38.5 (10-20); Bilirubin,Total 0.3 mg/dl (0.2-1.0); Calcium 8.5 mg/dl (8.6-10.3); Est GFR (African American) 132.5 ml/min; Est GFR (Non-African American) 114.3 ml/min; Magnesium 1.9 mg/dl (1.7-2.4); Phosphorus 2.1 mg/dl (2.5-4.9); Potassium 3.2 mmol/L (3.5-5.1); Total Protein 5.6 gm/dl (6.0-8.3)
--- NOTE | 2023-11-30 08:18 | XRay Report ---
XR chest 1V portable HISTORY: 62 years-old Male f/u acute shortness of breath COMPARISON: 11/28/2023, 11/27/2023 TECHNIQUE: AP view of the chest FINDINGS: Right lung pulmonary metastasis redemonstrated. Decreased interstitial coarsening within the right millicent ng with mildly improved right basilar consolidation. Pulmonary vascular congestion. Unchanged appeara nce of the left hemithorax with near complete opacification. Bones appear grossly intact. IMPRESSION: 1. Decreasing right lung pulmonary edema with persistent yet improved right basilar consolidation denice picious for pneumonia versus aspiration pneumonitis . 2. Pulmonary metastasis is better seen on the comparison CTA of the chest. 3. Unchanged appearance of the left hemithorax. ACT 112: Negative or not required by law. The above report was generated using voice recognition software. It may contain grammatical, syntax o r spelling errors. Electronically signed by: Luis Miguel Peoples M.D. 11/30/2023 8:17 AM
--- NOTE | 2023-11-30 08:25 | Pulmonology Progress Note ---
Date of Service November 30, 2023 Assessment & Plan (1) Acute hypoxic respiratory failure: (2) Sepsis: Acute respiratory failure type: with hypoxia Sepsis acute organ dysfunction status: with acute organ dysfunction Sepsis type: sepsis due to unspecified organism Severe sepsis acute organ dysfunction type: acute respiratory failure Severe sepsis shock status: unspecified Qualified Code(s): A41.9 - Sepsis, unspecified organism; R65.20 - Severe sepsis without septic shock; J96.01 - Acute respiratory failure with hypoxia (3) Pneumonia: Laterality: unspecified laterality Lung location: unspecified part of lung Pneumonia type: due to unspecified organism Qualified Code(s): J 18.9 - Pneumonia, unspecified organism (4) Squamous cell carcinoma of left lung: (5) Abnormal chest CT: (6) Hydropneumothorax: (7) Metastatic primary lung cancer: Laterality: left Qualified Code(s): C34.92 - Malignant neoplasm of unspecified part of left bronchus or lung Plan CT chest 11/27/2023 personally reviewed: Moderate left-sided hydropneumothorax with collapse of the left lung Centrilobular emphysema on the right side Minimal patchy groundglass opacities appreciated in the right lower lobe with some interlobular thickening Mediastinal shift to the left The mass seems to be increased in size of the left hydropneumothorax 2D echo 11/27/2023: EF 50-55%, global hypokinesis of the left ventricle, mild concentric LVH, moderate MR, RV normal in size and function ABG 11/27/2023: 7.45/29/98 -- New right lower lobe pneumonia Does have issues with swallowing, could be aspiration Procalcitonin 3.79, BNP 377 Nasal MRSA positive --Left-sided hydropneumothorax No need for any intervention --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 It may contain grammatical, syntax or spelling errors.Any formal questions or concerns about the content, text or information contained within the body of this dictation should be directly addressed to the provider for clarification. Admission and Anticipated Discharge Date Admission Date: November 27, 2023 Subjective Patient seen and examined at bedside. No acute distress, no events overnight States that he is feeling better compared to before He was coughing a little bit more compared to when I remember yesterday. He is bringing up greenish phlegm. Denies any hemoptysis No chest pain No nausea vomiting Fair appetite Patient's girlfriend was in the room at the time of examination Review of Systems 2 Review of Systems: All systems reviewed & are unremarkable except as noted in Subjective Physical Exam 2 Physical Exam: Constitutional: No acute distress, frail-appearing HEENT: EOMI, PERRLA Respiratory system: Decreased air entry on the left side, no wheeze, positive rhonchi, positive crackles right lower lobe CVS: S1-S2 positive, no murmurs or gallops Abdomen: Soft, nontender, nondistended, positive bowel sounds x4 Extremities: +2 pulses bilaterally radialis/ dorsalis pedis, no cyanosis, no edema, no clubbing Neuro: Awake alert oriented x3 Psych: Normal mood and affect G/U: Positive Cosby Skin: no rashes, warm and dry Lymphatic: no cervical or axillary lymphadenopathy Results & Data Results & Data Vital Signs (Past 12 Hours) Vital Signs Temp Pulse Pulse Resp BP Pulse Ox O2 Del Method 11/30/23 07:31 91 H 17 92 Nasal Cannula 11/30/23 07:23 37.1 C 96 H 21 102/66 91 Nasal Cannula 11/30/23 07:18 Nasal Cannula 11/30/23 03:40 37.0 C 95 H 18 106/70 97 Nasal Cannula 11/29/23 23:51 Nasal Cannula 11/29/23 22:42 36.8 C 94 H 16 106/64 97 Nasal Cannula 11/29/23 21:59 96 H 11/29/23 21:00 94 H 11/29/23 21:00 Nasal Cannula O2 Flow Rate 11/30/23 07:31 3.5 11/30/23 07:23 3 11/30/23 07:18 3 11/30/23 03:40 4 11/29/23 23:51 3 02/18/24 22:42 4 11/29/23 21:59 11/29/23 21:00 11/29/23 21:00 3 Laboratory Results 11/30/23 06:15 11/30/23 06:15 PG Care Time/CCT Total # of Minutes Spent Total Time Spent with Patient: Total time spent is greater than 50% in coordination of care (as documented) at patient's floor/unit and/or counseling patient: Coding Level of Care Code 73835 SUB INP/OBS CARE 2/35MIN Diagnoses Acute hypoxic respiratory failure J96.01 Sepsis with acute hypoxic respiratory failure, due to unspecified organism, unspecified whether septic shock present A41.9; R65.20; J96.01 Acute respiratory failure type: with hypoxia Sepsis acute organ dysfunction status: with acute organ dysfunction Sepsis type: sepsis due to unspecified organism Severe sepsis acute organ dysfunction type: acute respiratory failure Severe sepsis shock status: unspecified Pneumonia J18.9 Laterality: unspecified laterality Lung location: unspecified part of lung Pneumonia type: due to unspecified organism Squamous cell carcinoma of left lung C34.[address] R93.89 Hydropneumothorax J94.8 Primary malignant neoplasm of left lung metastatic to other site C34.92 Laterality: left
--- NOTE | 2023-11-30 08:29 | Cardiology Progress Note ---
Date of Service November 30, 2023 Assessment & Plan (1) Atrial fibrillation with RVR: (2) Acute hypoxic respiratory failure: (3) Squamous cell carcinoma of left lung: Plan IMPRESSION: Medically complex 62 year old male who presents to [facility] due to sudden onset of a cute respiratory failure. Patient has known metastatic left lung cancer. Found to be in new onset AFIB RVR--highly symptomatic with shortness of breath, tachy-palpitations, and fluid retention. Chest CT performed 11/27/2023 reveals occlusion of the left pulmonary artery by a perihilar mass measuring 7.5 x 5.6 cm previously 6 x 4 cm. There is resultant occlusion of the left mainstem bronchus. Findings of left-sided hydropneumothorax Converted from atrial fibrillation with rapid ventricular response to sinus rhythm on 11/27/2023 at 2140 without conversion pause. Telemetry revealing SR/ST with PACs 80-100s PLAN: * Volume status improving-- Appreciate pulmonary recommendations, plans for addition dose of IV Lasix this morning per Pulmonary. * Maintain potassium goal of 4.0, supplemented this am. Mag goal of 2.0. * Metoprolol tartrate transitioned to metoprolol succinate 50 mg twice daily (11/29/2023)-- continue, titrate as appropriate. * IV heparin discontinued in favor of Eliquis 5 mg BID for stroke prevention. * Prognosis is poor with noted chest x-ray findings of chronic opacification of the left lung almaguer. Case discussed with Dr. Chen. Further recommendations pending his assessment. I spent a total of 30 minutes on the date of service in preparation, delivery, and documentation of the care provided to the patient excluding any time spent in the performance of separately billed services. IHSAN Sinclair Department of Cardiology, [facility] This chart was completed in part utilizing Speech Voice Recognition Software. Grammatical errors, random word insertions, pronoun errors, and incomplete sentences are an occasional consequence of this system due to software limitations, ambient noise, and hardware issues. Any formal questions or concerns about the content, text, or information contained within the body of this dictation should be directly addressed to the provider for clarification. Admission and Anticipated Discharge Date Admission Date: November 27, 2023 Supervising Physician Co-Signing Physician Notes Attending attestation: Case reviewed with the advanced practitioner. I have personally performed a history and physical examination on the patient. I have reviewed the advanced practitioner's documentation on the date of service referenced in note, and I agree with, and take responsibility for the plan of care. López Chen DO Subjective Medically complex 62 year old male who presents to [facility] due to sudden onset of acute respiratory failure. Patient has known metastatic left lung cancer. Chest CT performed 11/27/2023 reveals occlusion of the left pulmonary artery by a perihilar mass measuring 7.5 x 5.6 cm previously 6 x 4 cm. There is resultant occlusion of the left mainstem bronchus. Findings of left-sided hydropneumothorax Found to be in new onset AFIB RVR--highly symptomatic with shortness of breath, tachy-palpitations, and fluid retention. Converted from AFIB to NSR on 11/27/2023 at 2140 without conversion pause. Tele: SR/ST 80-100s with PACS Upon entrance into the room patient resting in bed. Notes that he did not sleep well over night and feels fatigued. No acute distress. No chest pain, breathing at baseline- continues to require supplemental o2. No palpitations or lightheadedness. Received IV Lasix this morning per pulmonary. Volume status appears acceptable. Orthopnea improving. No lower extremity edema. Review of Systems Review of Systems: All systems reviewed & are unremarkable except as noted in HPI & below Physical Exam Constitutional: + ill appearing, + cachectic and + frail appearing; no acute distress Eyes: PERRL, conjunctivae normal, anicteric sclerae Neck: normal visual inspection and trachea midline Respiratory: + cough and able to speak in complete se ntences; no respiratory distress Auscultation: + rales, + rhonchi and + wheezes (right lung with mild diffuse wheezing, no BS in left lung ) Cardiovascular: Rate/Rhythm: regular rate and regular rhythm Heart Sounds: normal S1, normal S2 (distant heart sounds.) and + murmur (unable to assess) Extremities: no edema Gastrointestinal (Abdomen): Percussion/Palpation: abdomen soft; abdomen nontender Skin: no rashes, warm and dry Psychiatric: Orientation: alert and oriented x 3 Results & Data Vital Signs (Past 12 Hours) Vital Signs Temp Pulse Pulse Resp BP Pulse Ox O2 Del Method 11/30/23 07:31 91 H 17 92 Nasal Cannula 11/30/23 07:23 37.1 C 96 H 21 102/66 91 Nasal Cannula 11/30/23 07:18 Nasal Cannula 11/30/23 03:40 37.0 C 95 H 18 106/70 97 Nasal Cannula 11/29/23 23:51 Nasal Cannula 11/29/23 22:42 36.8 C 94 H 16 106/64 97 Nasal Cannula 11/29/23 21:59 96 H 11/29/23 21:00 94 H 11/29/23 21:00 Nasal Cannula O2 Flow Rate 11/30/23 07:31 3.5 11/30/23 07:23 3 11/30/23 07:18 3 11/30/23 03:40 4 11/29/23 23:51 3 11/29/23 22:42 4 11/29/23 21:59 11/29/23 21:00 11/29/23 21:00 3 Laboratory Results Cardiac Enzymes 11/30/23 Range/Units 06:15 AST 17 (13-39) U/L Coagulation 11/29/23 Range/Units 11:01 APTT 33 H (21-31) Seconds CBC 11/30/23 Range/Units 06:15 WBC 15.08 H (4.8-10.8) K/ul RBC 3.72 L (4.70-6.10) M/uL Hgb 9.0 L (14.0-18.0) g/dl Hct 29.0 L (42.0-52.0) % Plt Count 358 (130-400) K/uL Comprehensive Metabolic Panel 11/30/23 Range/Units 06:15 Sodium 131 L (136-145) mmol/L Potassium 3.2 L (3.5-5.1) mmol/L Chloride 95 L (98-107) mmol/L Carbon Dioxide 28 (21-32) mmol/L BUN 20 (6-23) mg/dl Creatinine 0.52 L (0.6-1.4) mg/dl Glucose 100 H (70-99(Fasting)) mg/dl Calcium 8.5 L (8.6-10.3) mg/dl AST 17 (13-39) U/L ALT 21 (7-52) U/L Alkaline Phosphatase 97 (34-104) U/L Total Protein 5.6 L (6.0-8.3) gm/dl Albumin 2.6 L (3.4-5.0) gm/dl Intake and Output 11/29/23 11/30/23 11/30/23 22:59 06:59 14:59 Intake Total 700.8 / 1403.3 265 / 265 Output Total 1100 / 2800 300 / 2800 Balance -399.2 / -1396.7 -300 / -1396.7 265 / 265 Intake: IV 700.8 / 1003.3 265 / 265 Heparin Sodium/Dextrose 25,000 170.8 / 473.3 units In 500 ml @ 1,400 UNITS/ HR 28 mls/hr IV .[id number] [facility] Rx #:[id number] Vancomycin HCl 750 mg In Sodium 530 / 530 265 / 265 Chloride 0.9% 250 ml @ 200 mls /hr IV Q8H [facility] Rx#:[id number] Output: Urine Amount (Catheter) 1100 / 2800 300 / 2800 Cosby/Indwelling 1100 / 2800 300 / 2800 Other: Other Intake Source sips Weight 57.6 kg
[2023-11-30] MEDS: POT PHOSPHATE MONOBASIC W/ SOD TAB PO ONE (10:18)
[2023-11-30] MEDS: FUROSEMIDE INJ 20 MG/2 ML VIAL IV ONE (10:18)
[2023-11-30] MEDS: METOPROLOL SUCC 50MG EXT REL TAB PO SCH (10:19)
[2023-11-30] MEDS ORDERED: Nursing to Pharmacy Communication SCH (11:15)
--- NOTE | 2023-11-30 11:52 | Hospitalist Progress Note ---
Date of Service November 30, 2023 Assessment & Plan (1) Atrial fibrillation with RVR: Plan: 62 y/o male with history of stage IV non-small cell lung cancer s/p chemo and radiation, now on immunotherapy, COPD, prior smoker, hx MRSA bacteremia, hx necrotizing pneumonia, chronic hepatitis C, diet-controlled DM2, and other history who presented to the ED via EMS with racing heart and trouble breathing Found to have new onset afib with RVR in the field. Work-up also consistent with Sepsis, likely due to pneumonia related to obstruction from known lung cancer. Initially got IV diltiazem Evaluated by Cardiology Flipped back to Sinus rhythm on night of 11/27/23 Metoprolol tartarate 25mg q6h changed to metoprolol succinate 50mg BID Currently on eliquis 5mg bid for stroke prophylaxis (2) Sepsis: (3) Acute hypoxic respiratory failure: (4) Pneumonia: Plan: Post-obstructive due to known malignancy Pt has a history of MRSA bacteremia MRSA is also positive Chest CT did not show any PE but noted increasing size of left perihilar necrotic mass. Lesion measures approximately 7.5 x 5.6 cm [previously 6 x 4 cm], increase in size of 10 x 6.4 cm fluid and gas containing cavity within the left hemithorax, moderate left pleural effusion similar to prior, no significant change in mediastinal and left supraclavicular lymphadenopathy and several right lung metastasis interstitial edema and right lung, alveolar opacities within the right lung reflective of pulmonary edema superimposed infectious process. Leukocytosis of 21,000 on admission WBC is15k today Continue broad spectrum antibiotics Blood cultures negative Cartridge Filler recs noted PRN lasix Continue oxygen supplementation and wean as tolerated Hypokalemia, hypophosphatemia today. Replete and monitor (5) Hypotension: Plan: Was hypotensive in the ER. BP responded to IV fluid boluses. Monitor (6) Metastatic primary lung cancer: Plan: Pt currently following with Dr. Lazaro for oncology and is on immunotherapy Optimized pain control Continue antitussives (7) Hyponatremia: Plan: Na was 128 on admission Na is 131 today Monitor (8) Hepatitis C: Plan: Chronic, stable. Plan Code Status:Patient reported he wants his code status changed to DNR DVT Prophylaxis: Eliquis Ongoing [facility] Palliative consult I spent a total of 45 minutes coordinating, documenting and providing care for this patient excluding time spent in performance of separately billed services Admission and Anticipated Discharge Date Admission Date: November 27, 2023 Subjective Patient seen and examined Still reports productive cough and chest pain Denied dizziness, headache, nausea, vomiting Reports weakness Physical Exam Constitutional: + well hydrated and + thin; no acute dis tress Eyes: PERRL, conjunctivae normal, anicteric sclerae ENMT: external ear and nose normal, oropharynx normal Respiratory: normal respiratory effort; no respiratory distress Reduced breath sounds Left lung zone +crackles On nasal cannual Cardiovascular: Rate/Rhythm: regular rate and regular rhythm S1 S2 Gastrointestinal (Abdomen): normal bowel sounds, soft, nontender, no hepatosplenomegaly Musculoskeletal: No pedal edema Neurologic: PERRL, EOMI, accommodation nl, no face palsy, no dysarthria Psychiatric: A+Ox3, euthymic affect Results & Data Results & Data Vital Signs (Past 12 Hours) Vital Signs Temp Pulse Resp BP Pulse Ox O2 Del Method O2 Flow Rate 11/30/23 07:31 91 H 17 92 Nasal Cannula 3.5 11/30/23 07:23 37.1 C 96 H 21 102/66 91 Nasal Cannula 3 11/30/23 07:18 Nasal Cannula 3 11/30/23 03:40 37.0 C 95 H 18 106/70 97 Nasal Cannula 4 11/29/23 23:51 Nasal Cannula 3 Laboratory Results Abnormal lab results 11/30/23 Range/Units 06:15 WBC 15.08 H (4.8-10.8) K/ul RBC 3.72 L (4.70-6.10) M/uL Hgb 9.0 L (14.0-18.0) g/dl Hct 29.0 L (42.0-52.0) % MCV 78.0 L (80.0-100.0) fL MCH 24.2 L (25.0-34.0) pg MCHC 31.0 L (32.0-36.0) g/dL RDW Coeff of Mathieu 15.2 H (11.5-14.5) % Sodium 131 L (136-145) mmol/L Potassium 3.2 L (3.5-5.1) mmol/L Chloride 95 L (98-107) mmol/L Creatinine 0.52 L (0.6-1.4) mg/dl BUN/Creatinine Ratio 38.5 H (10-20) Glucose 100 H (70-99(Fasting)) mg/dl Calcium 8.5 L (8.6-10.3) mg/dl Phosphorus 2.1 L (2.5-4.9) mg/dl Total Protein 5.6 L (6.0-8.3) gm/dl Albumin 2.6 L (3.4-5.0) gm/dl (2) Sepsis Sepsis type: sepsis due to unspecified organism Sepsis acute organ dysfunction status: with acute organ dysfunction Severe sepsis acute organ dysfunction type: acute respiratory failure Acute respiratory failure type: with hypoxia Severe sepsis shock status: unspecified Qualified Code(s): A41.9 - Sepsis, unspecified organism; R65.20 - Severe sepsis without septic shock; J96.01 - Acute respiratory failure with hypoxia (4) Pneumonia Laterality: unspecified laterality Lung location: unspecified part of lung Pneumonia type: due to unspecified organism Qualified Code(s): J18.9 - Pneumonia, unspecified organism (5) Hypotension Hypotension type: unspecified hypotension type Qualified Code(s): I95.9 - Hypotension, unspecified (6) Metastatic primary lung cancer Laterality: left Qualified Code(s): C34.92 - Malignant neoplasm of unspecified part of left bronchus or lung (8) Hepatitis C Viral hepatitis chronicity: chronic Hepatic coma status: without hepatic coma Qualified Code(s): B18.2 - Chronic viral hepatitis C
[2023-11-30] MEDS: metroNIDAZOLE 500 MG/100 ML BAG IV SCH (12:34)
[2023-11-30] MEDS: POTASSIUM CHLORIDE CRTAB 20 MEQ TABCR PO STA (12:37)
[2023-11-30] MEDS: POTASSIUM CHLORIDE 10 MEQ TABCR PO SCH (12:37)
[2023-11-30] MEDS: CEFEPIME 2,000 MG in SYRINGE 0 ML IV SCH (14:01)
[2023-12-01 05:54] LABS: Hematocrit (blood only) 28.2 % (42.0-52.0); Hemoglobin 8.7 g/dl (14.0-18.0); Mean Corpuscular Hemoglobin 24.2 pg (25.0-34.0); Mean Corpuscular Hgb Conc 30.9 g/dL (32.0-36.0); Mean Corpuscular Volume 78.3 fL (80.0-100.0); Mean Platelet Volume 9.8 fL (9.4-12.4); Platelet Count 287 K/uL (130-400); RDW Coefficient of Variation 15.3 % (11.5-14.5); RDW Standard Deviation 42.9 fL (36.4-46.3); White Blood Count 15.97 K/ul (4.8-10.8)
[2023-12-01] MEDS: VANCOMYCIN LEVEL ONE (05:54)
[2023-12-01 06:07] LABS: Albumin Globulin Ratio 0.8 (0.9-2); Albumin Level 2.5 gm/dl (3.4-5.0); BUN Creatinine Ratio 53.7 (10-20); Bilirubin,Total 0.5 mg/dl (0.2-1.0); Calcium 8.6 mg/dl (8.6-10.3); Creatinine Clr Calc Pharmacy 152.2 ml/min; Est GFR (African American) 146.1 ml/min; Potassium 3.7 mmol/L (3.5-5.1); Total Protein 5.5 gm/dl (6.0-8.3)
--- NOTE | 2023-12-01 07:07 | Cardiology Progress Note ---
Date of Service December 01, 2023 Assessment & Plan (1) Atrial fibrillation with RVR: (2) Acute hypoxic respiratory failure: (3) Squamous cell carcinoma of left lung: Plan IMPRESSION: Medically complex 62 year old male who presents to [facility] due to sudden onset of a cute respiratory failure. Patient has known metastatic left lung cancer. Found to be in new onset AFIB RVR--highly symptomatic with shortness of breath, tachy-palpitations, and fluid retention. Chest CT performed 11/27/2023 reveals occlusion of the left pulmonary artery by a perihilar mass measuring 7.5 x 5.6 cm previously 6 x 4 cm. There is resultant occlusion of the left mainstem bronchus. Findings of left-sided hydropneumothorax Converted from atrial fibrillation with rapid ventricular response to sinus rhythm on 11/27/2023 at 2140 without conversion pause. Telemetry revealing SR 80-90s. No return of PAF. PLAN: * Volume status compensated. Utilized PRN IV Lasix per pulmonary-- Appreciate pulmonary recommendations. Okay to discontinue Cosby from a cardiology [facility]. * Maintain potassium goal of 4.0, supplemented this am. Mag goal of 2.0. * Continue metoprolol succinate 50 mg twice daily at discharge * Continue Eliquis 5 mg BID for stroke prevention at discharge. * Prognosis is poor with noted chest x-ray findings of chronic opacification of the left lung almaguer. Case discussed with Dr. Chen. No further recommendations from a cardiology standpoint. Okay for discharge. I spent a total of 30 minutes on the date of service in preparation, delivery, and documentation of the care provided to the patient excluding any time spent in the performance of separately billed services. IHSAN Sinclair Department of Cardiology, [facility] This chart was completed in part utilizing Speech Voice Recognition Software. Grammatical errors, random word insertions, pronoun errors, and incomplete sentences are an occasional consequence of this system due to software limitations, ambient noise, and hardware issues. Any formal questions or concerns about the content, text, or information contained within the body of this dictation should be directly addressed to the provider for clarification. Admission and Anticipated Discharge Date Admission Date: November 27, 2023 Supervising Physician Co-Signing Physician Notes Attending attestation: Case reviewed with the advanced practitioner. I have personally performed a history and physical examination on the patient. I have reviewed the advanced practitioner's documentation on the date of service referenced in note, and I agree with, and take responsibility for the plan of care. López Chen DO Subjective Medically complex 62 year old male who presents to [facility] due to sudden onset of acute respiratory failure. Patient has known metastatic left lung cancer. Chest CT performed 11/27/2023 reveals occlusion of the left pulmonary artery by a perihilar mass measuring 7.5 x 5.6 cm previously 6 x 4 cm. There is resultant occlusion of the left mainstem bronchus. Findings of left-sided hydropneumothorax Found to be in new onset AFIB RVR--highly symptomatic with shortness of breath, tachy-palpitations, and fluid retention. Converted from AFIB to NSR on 11/27/2023 at 2140 without conversion pause. Tele: NSR 80-90s Upon entrance into the room patient resting in bed. Girlfriend at bedside. Eager for discharge. No chest pain, breathing at baseline- continues to require supplemental oxygen. No palpitations or lightheadedness. Received as needed IV Lasix throughout hospital stay. Physical Exam Constitutional: + ill appearing, + cachectic and + frail appearing; no acute distress Eyes: PERRL, conjunctivae normal, anicteric sclerae Neck: normal visual inspection and trachea midline Respiratory: + cough and able to speak in complete se ntences; no respiratory distress Auscultation: + rales, + rhonchi and + wheezes (right lung with mild diffuse wheezing, no BS in left lung ) Cardiovascular: Rate/Rhythm: regular rate, regular rhythm, + tachycardic and + irregularly irregular Heart Sounds: normal S1, normal S2 (distant heart sounds.) and + murmur (unable to assess) Extremities: + pedal edema; no edema Gastrointestinal (Abdomen): Percussion/Palpation: abdomen soft; abdomen nontender Skin: no rashes, warm and dry Psychiatric: Orientation: alert and oriented x 3 Results & Data Vital Signs (Past 12 Hours) Vital Signs Temp Pulse Pulse Resp BP Pulse Ox O2 Del Method 12/01/23 06:58 92 H 17 98 Nasal Cannula 12/01/23 02:27 36.8 C 79 16 107/70 98 Nasal Cannula 11/30/23 23:21 37.3 C 96 H 20 112/70 92 Nasal Cannula 11/30/23 22:00 93 H 11/30/23 20:45 Nasal Cannula 11/30/23 20:32 98 Nasal Cannula 11/30/23 19:52 96 H 18 80 L Nasal Cannula 11/30/23 19:14 37.0 C 92 H 18 97/60 L 97 Nasal Cannula O2 Flow Rate 12/01/23 06:58 3 12/01/23 02:27 4 11/30/23 23:21 4 11/30/23 22:00 11/30/23 20:45 4 11/30/23 20:32 4 11/30/23 19:52 2 11/30/23 19:14 2 Laboratory Results Cardiac Enzymes 12/01/23 Range/Units 05:24 AST 14 (13-39) U/L CBC 12/01/23 Range/Units 05:24 WBC 15.97 H (4.8-10.8) K/ul RBC 3.60 L (4.70-6.10) M/uL Hgb 8.7 L (14.0-18.0) g/dl Hct 28.2 L (42.0-52.0) % Plt Count 287 (130-400) K/uL Comprehensive Metabolic Panel 11/30/23 12/01/23 Range/Units 18:56 05:24 Sodium 131 L (136-145) mmol/L Potassium 3.8 3.7 (3.5-5.1) mmol/L Chloride 98 (98-107) mmol/L Carbon Dioxide 27 (21-32) mmol/L BUN 22 (6-23) mg/dl Creatinine 0.41 L (0.6-1.4) mg/dl Glucose 97 (70-99(Fasting)) mg/dl Calcium 8.6 (8.6-10.3) mg/dl AST 14 (13-39) U/L ALT 17 (7-52) U/L Alkaline Phosphatase 111 H (34-104) U/L Total Protein 5.5 L (6.0-8.3) gm/dl Albumin 2.5 L (3.4-5.0) gm/dl Intake and Output 11/30/23 12/01/23 12/01/23 22:59 06:59 14:59 Intake Total 365 / 1685 415 / 1685 Output Total 300 / 1575 200 / 1575 Balance 65 / 110 215 / 110 Intake: IV 365 / 1095 365 / 1095 Vancomycin HCl 750 mg In Sodium 265 / 795 265 / 795 Chloride 0.9% 250 ml @ 200 mls /hr IV Q8H [facility] Rx#:[id number] metroNIDAZOLE 500 mg In 100 ml 100 / 300 100 / 300 @ 100 mls/hr IV Q8H [facility] Rx#: [id number] Oral 50 / 590 Output: Urine Amount (Catheter) 300 / 1575 200 / 1575 Cosby/Indwelling 300 / 1575 200 / 1575 Other: Weight 56.4 kg Weight Measurement Method Built in [facility]
--- NOTE | 2023-12-01 08:36 | Pulmonology Progress Note ---
Date of Service December 01, 2023 Assessment & Plan (1) Acute hypoxic respiratory failure: (2) Sepsis: Acute respiratory failure type: with hypoxia Sepsis acute organ dysfunction status: with acute organ dysfunction Sepsis type: sepsis due to unspecified organism Severe sepsis acute organ dysfunction type: acute respiratory failure Severe sepsis shock status: unspecified Qualified Code(s): A41.9 - Sepsis, unspecified organism; R65.20 - Severe sepsis without septic shock; J96.01 - Acute respiratory failure with hypoxia (3) Pneumonia: Laterality: unspecified laterality Lung location: unspecified part of lung Pneumonia type: due to unspecified organism Qualified Code(s): J 18.9 - Pneumonia, unspecified organism (4) Squamous cell carcinoma of left lung: (5) Abnormal chest CT: (6) Hydropneumothorax: (7) Metastatic primary lung cancer: Laterality: left Qualified Code(s): C34.92 - Malignant neoplasm of unspecified part of left bronchus or lung Plan CT chest 11/27/2023 personally reviewed: Moderate left-sided hydropneumothorax with collapse of the left lung Centrilobular emphysema on the right side Minimal patchy groundglass opacities appreciated in the right lower lobe with some interlobular thickening Mediastinal shift to the left The mass seems to be increased in size of the left hydropneumothorax 2D echo 11/27/2023: EF 50-55%, global hypokinesis of the left ventricle, mild concentric LVH, moderate MR, RV normal in size and function ABG 11/27/2023: 7.45/29/98 -- New right lower lobe pneumonia Does have issues with swallowing, could be aspiration Procalcitonin 3.79, BNP 377 Nasal MRSA positive --Left-sided hydropneumothorax No need for any intervention --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 It may contain grammatical, syntax or spelling errors.Any formal questions or concerns about the content, text or information contained within the body of this dictation should be directly addressed to the provider for clarification. Admission and Anticipated Discharge Date Admission Date: November 27, 2023 Subjective Patient seen and examined at bedside. No acute distress, no adverse events overnight. He was saturating 96-97% on room air. He said he is feeling better since coming to the hospital Has been bringing up greenish phlegm. No hemoptysis Tolerating nebulizer treatment very well. Urinating well. No headache, blurry vision Review of Systems 2 Review of Systems: All systems reviewed & are unremarkable except as noted in Subjective Physical Exam 2 Physical Exam: Constitutional: No acute distress, frail-appearing HEENT: EOMI, PERRLA Respiratory system: Decreased air entry on the left side, no wheeze, positive rhonchi, positive crackles right lower lobe CVS: S1-S2 positive, no murmurs or gallops Abdomen: Soft, nontender, nondistended, positive bowel sounds x4 Extremities: +2 pulses bilaterally radialis/ dorsalis pedis, no cyanosis, no edema, no clubbing Neuro: Awake alert oriented x3 Psych: Normal mood and affect G/U: Positive Cosby Skin: no rashes, warm and dry Lymphatic: no cervical or axillary lymphadenopathy Results & Data Results & Data Vital Signs (Past 12 Hours) Vital Signs Temp Pulse Pulse Resp BP Pulse Ox O2 Del Method 12/01/23 07:38 36.8 C 74 19 90/52 L 97 Nasal Cannula 12/01/23 07:23 Nasal Cannula 12/01/23 06:58 92 H 17 98 Nasal Cannula 12/01/23 02:27 36.8 C 79 16 107/70 98 Nasal Cannula 11/30/23 23:21 37.3 C 96 H 20 112/70 92 Nasal Cannula 11/30/23 22:00 93 H 11/30/23 20:45 Nasal Cannula O2 Flow Rate 12/01/23 07:38 12/01/23 07:23 3 12/01/23 06:58 3 12/01/23 02:27 4 11/30/23 23:21 4 11/30/23 22:00 11/30/23 20:45 4 Laboratory Results 12/01/23 05:24 12/01/23 05:24 PG Care Time/CCT Total # of Minutes Spent Total Time Spent with Patient: Total time spent is greater than 50% in coordination of care (as documented) at patient's floor/unit and/or counseling patient: Coding Level of Care Code 42158 SUB INP/OBS CARE 2/35MIN Diagnoses Acute hypoxic respiratory failure J96.01 Sepsis with acute hypoxic respiratory failure, due to unspecified organism, unspecified whether septic shock present A41.9; R65.20; J96.01 Acute respiratory failure type: with hypoxia Sepsis acute organ dysfunction status: with acute organ dysfunction Sepsis type: sepsis due to unspecified organism Severe sepsis acute organ dysfunction type: acute respiratory failure Severe sepsis shock status: unspecified Pneumonia J18.9 Laterality: unspecified laterality Lung location: unspecified part of lung Pneumonia type: due to unspecified organism Squamous cell carcinoma of left lung C34.[address] R93.89 Hydropneumothorax J94.8 Primary malignant neoplasm of left lung metastatic to other site C34.92 Laterality: left
[2023-12-01 09:03] LABS: Phosphorus 2.7 mg/dl (2.5-4.9)
[2023-12-01] MEDS: FUROSEMIDE INJ 20 MG/2 ML VIAL IV ONE ×2 (10:52→10:55)
--- NOTE | 2023-12-01 10:55 | Pharmacy Report ---
Pharmacy PK ABX Note - Date of Service December 01, 2023 - Assessment and Plan Assessment 12/01: Cultures remain negative (moderate normal christopher in sputum), patient remains afebrile. SCr of 0.41 mg/dL today. 11/29: Level this morning drawn as a trough, 12.9 mcg/mL predicts therapeutic dosing. Will continue current dose for now 11/28: MRSA nasal swab positive. Sputum culture pending. Blood cultures negative at 24 hours. Current dose now predicting below target AUC/EFRA will adjust empirically and order random level 11/27 62 year old M started empirically on vancomycin and meropenem for possible pneumonia. PMHx significant for stage IV non-small cell lung cancer s/p chemo and radiation, now on immunotherapy, COPD, hx MRSA bacteremia, hx necrotizing pneumonia, chronic hepatitis C, DM2. Presenting to hospital with racing heart rate, found to have new onset afib. Also notes, increased cough/sputum over last few days. Day #5 of antimicrobial therapy. Plan Vancomycin * Current regimen: 750 mg IV every 8 hours * Trough level obtained 12/01/23 resulted as 11.1 mcg/mL. This is predicted to achieve target AUC/EFRA of 400-600 mg/L.hr * Predicted AUC at steady state: < 400 mg/L.hr * Change to 1000 mg IV every 8 hours * Will repeat level in the next 48-72 hours if therapy is continued and/or change in patient clinical status Cefepime 2 g IV q8h - appropriately dosed based on indication/renal function Metronidazole 500 mg IV q8h - appropriately dosed based on indication/renal function Pharmacy will continue to follow and will adjust dose/frequency as necessary. Thank you. Pharmacy has transitioned to AUC monitoring for vancomycin. AUC/EFRA is the preferred PK/PD target and is associated with decreased risk of nephrotoxicity compared to traditional trough targets.
--- NOTE | 2023-12-01 11:35 | Communication Note ---
Date of Service: December 01, 2023 Brief Pall Med Note Pt is being dc home with plans to follow up with oncology and discuss options. He is planning to see [facility] oncology and can see [facility] Pall med simultaneously. COnsult declined, pt will stay within [facility] system for cancer care. D/w primary team Pt not seen, NO charge submitted Thank you for allowing us to participate in the ongoing care of this patient. Please don't hesitate to call or page with any additional concerns. Dr. Alma Perez DNP Director, Palliative Care
[2023-12-01] MEDS: VANCOMYCIN HCL 1,000 MG in SODIUM CHLORIDE 0.9% 250 ML IV SCH (14:23)
--- NOTE | 2023-12-01 14:59 | Discharge Summary ---
Date of Service December 01, 2023 Admission HPI Per Admitting Provider This is a 62 y/o male with history of stage IV non-small cell lung cancer s/p chemo and radiation, now on immunotherapy, COPD, prior smoker, hx MRSA bacteremia, hx necrotizing pneumonia, chronic hepatitis C, diet-controlled DM2, and other history as outlined below who presented to the ED via EMS with racing heart and trouble breathing, found to have new onset afib with RVR in the field. He notes that over the last 2-3 days, he has had some increase in chronic cough and sputum production. Appetite has also been worse than usual. [place] around his baseline when he went to bed last night. This morning, he got up to eat breakfast and about twenty minutes later, he became very diaphoretic, pale, lightheaded with a sensation that his heart was racing. He also became short of breath. Denies chest pain, nausea, vomiting, headache. When EMS arrived, pt was hypoxic in the upper 80s with significant work of breathing so BiPAP was initiated with improvement. He was found to be in afib with a rate of the 160s so he was given diltiazem en route. His noted new peripheral edema overnight so pt was given Lasix pre-hospital as well. Currently, his breathing feels improved on the BiPAP and he is asking when it can be discontinued. He denies chest pain. Palpitations are improving. Pt was originally diagnosed with stage IIIC non-small cell lung cancer of [place] in Oct 2022. Underwent chemo + radiation, followed by initiation of maintenance durvulumab in February 2023. However, he was admitted later February 2023 for bilateral pneumonia and MRSA bacteremia requiring removal of mediport. Admitted again March 2023 for left-sided cavitary lung lesion and leukocytosis. Treatment with Vanco/Zosyn followed by additional week of Augmentin an voriconazole. Pt has been following with Dr. Pierson for management although he did see Dr. Deutsch once in May 2023, now following with Dr. Lazaro. Durvalumab was restarted but per patient he is changing to a new regimen shortly. He also notes recently being told that his cancer is stage IV. Admission Exam Per Admitting Provider General: thin, frail-appearing but not in acute distress, answers questions appropriately HEENT: no scleral icterus, slightly dry oral mucosa Neck: trachea midline Heart: irregularly irregular at a rate in the 120s Lungs: markedly diminished to no breath sounds on the left, clear BS on the right Abdomen: soft, NT, +BS Extremities: trace pedal edema, distal pulses intact and equal Skin: no jaundice Neurologic: oriented x 3, moving all extremities, no dysarthria Principal Diagnosis Acute respiratory failure with hypoxia Sepsis Pneumonia Lung cancer (squamous cell carcinoma) Paroxysmal Atrial fibrillation Discharge Exam Constitutional + well hydrated and + thin; no acute distress Eyes PERRL, conjunctivae normal, anicteric sclerae ENMT external ear and nose normal, oropharynx normal Respiratory normal respiratory effort; no respiratory distress Reduced breath sounds Left lung zone +crackles Cardiovascular Rate/Rhythm: regular rate and regular rhythm S1 S2 Gastrointestinal (Abdomen) normal bowel sounds, soft, nontender, no hepatosplenomegaly Musculoskeletal No pedal edema Neurologic PERRL, EOMI, accommodation nl, no face palsy, no dysarthria Psychiatric A+Ox3, euthymic affect Discharge Data Allergies Allergy/AdvReac Type Severity Reaction Status Date / Time No Known Allergies Allergy Verified 11/17/23 09:19 Consultations 11/27/23 08:54 ED Decision to Admit Stat 11/27/23 11:56 Consult Cardiology Routine 11/27/23 14:58 Consult Pulmonology Routine 11/28/23 08:47 Consult Palliative Care Routine Ordered Studies 11/27/23 08:53 CT angio chest PE protocol Stat Hospital Course (1) Atrial fibrillation with RVR: 62 y/o male with history of stage IV non-small cell lung cancer s/p chemo and radiation, now on immunotherapy, COPD, prior smoker, hx MRSA bacteremia, hx necrotizing pneumonia, chronic hepatitis C, diet-controlled DM2, and other history who presented to the ED via EMS with racing heart and trouble breathing Found to have new onset afib with RVR in the field. Work-up also consistent with Sepsis, likely due to pneumonia related to obstruction from known lung cancer. Initially got IV diltiazem Evaluated by Cardiology Flipped back to Sinus rhythm on night of 11/27/23 Currently on metoprolol succinate 50mg BID Was initially on heparin drip, then transitioned to eliquis 5mg BID However, patient decided to go home on home hospice after Goals of care discussion with him and partner He stated he does now want to continue eliquis but will like to continue metoprolol (2) Sepsis: (3) Acute hypoxic respiratory failure: (4) Pneumonia: Post-obstructive due to known malignancy Pt has a history of MRSA bacteremia MRSA is also positive Chest CT did not show any PE but noted increasing size of left perihilar necrotic mass. Lesion measures approximately 7.5 x 5.6 cm [previously 6 x 4 cm], increase in size of 10 x 6.4 cm fluid and gas containing cavity within the left hemithorax, moderate left pleural effusion similar to prior, no significant change in mediastinal and left supraclavicular lymphadenopathy and several right lung metastasis interstitial edema and right lung, alveolar opacities within the right lung reflective of pulmonary edema superimposed infectious process. Leukocytosis of 21,000 on admission Hydropneumothorax, Left WBC is down to 15K Was managed with IV broad spectrum antibiotics Blood cultures negative Was comanaged with [facility] Sil[facility]reader recommends lasix 20mg prn for weight gain >2Lbs Discharged on po levofloxacin for 3 more days to complete treatment Patient was weaned off oxygen at rest 2 step showed no oxygen at rest but needs 2L/min with activity (5) Hypotension: Was hypotensive in the ER. BP responded to IV fluid boluses. (6) Metastatic primary lung cancer: Pt currently following with Dr. Lazaro for oncology and is on immunotherapy Discharge on po oxycodone 5mg q6h prn Home hospice can adjust as needed (7) Hyponatremia: Na was 128 on admission Na is 131 today (8) Hepatitis C: Chronic, stable. Total Time Total Time Spent Total Time Spent (In Minutes): 50 Total Time Includes: Examination of the Patient, Discharge Planning, Medication Reconciliation and Communication With Other Providers Discharge Plan Discharge Items Patient Disposition: Hospice - Home Reason For Visit: AFIB W/RVR, RESP FAILURE Discharge Diagnosis: Acute respiratory failure with hypoxia Pneumonia Lung cancer Atrial fibrillation Activity: Resume your previous activity Non-emergency contact: Primary Care Provider Call non-emergency contact if: you have any medication questions and your symptoms worsen Follow-up/Referrals: Wood Genao MD [Primary Care Provider] - (Date & Time 12/04/2023 3:20 PM Provider Wood Genao MD [facility] ) Diet: Regular Addtl Attending Provider Instructions: Mr Bah You came to the hospital for shortness of breath and palpitation. You were evaluated and managed for the above listed diagnoses. You opted to be discharged on home hospice. You are being discharged on 3 more days of antibiotics (levofloxacin) You are being discharged on metoprolol for better heart rate control. You are being discharged on a water pill, lasix or furosemide to be used as needed only if weight increases by >2 pounds You are also being discharged on oxygen to be used at 2L/min with activity. Pending Studies at Discharge: No Stand-Alone Forms: My [facility] Medications and DC Order Prescriptions: New metoprolol succinate 50 mg Tablet Extended Release 24 Hr 50 mg PO BID Qty: 60 0RF sodium chloride 7 % Solution For Nebulization 4 ml NEB BIDR Qty: 120 0RF guaifenesin [Mucinex] 600 mg Tablet Extended Release 12hr 600 mg PO Q12 Qty: 30 0RF levofloxacin 750 mg tablet 750 mg PO DAILY Qty: 3 0RF furosemide [Lasix] 20 mg tablet 20 mg PO DAILY PRN (Reason: weight gain > 2 pounds) Qty: 30 0RF Continued albuterol sulfate 90 mcg/actuation HFA aerosol inhaler 2 puff inhalation Q4 PRN (Reason: Wheezing) ipratropium-albuterol 0.5 mg-3 mg(2.5 mg base)/3 mL solution for nebulization 3 ml inhalation QID Patient Comments: NOT CURRENT USING/ON BACK ORDER ibuprofen 200 mg Tablet 200 mg PO TID PRN (Reason: Pain) multivitamin Tablet 1 tab PO QAM ketorolac 0.5 % drops See Rx Instructions .ROUTE .COMPLEX Rx Instructions: Please see attached for detailed directions Patient had cataract surgery prednisolone acetate 1 % drops,suspension See Rx Instructions .ROUTE .COMPLEX Rx Instructions: Please see attached for detailed directions Patient had cataract surgery moxifloxacin 0.5 % drops See Rx Instructions .ROUTE .COMPLEX Rx Instructions: Please see attached for detailed directions Patient had cataract surgery guaifenesin 600 mg Tablet Extended Release 12hr 600 mg PO Q12H PRN (Reason: Cough) docusate sodium 100 mg Tablet 100 mg PO BID PRN (Reason: Constipation) albuterol sulfate 2.5 mg /3 mL (0.083 %) solution for nebulization 2.5 mg inhalation Q4H PRN (Reason: Shortness Of Breath Or Wheezing) Qty: 75 0RF Changed oxycodone 5 mg tablet 5 mg PO Q6H PRN (Reason: severe pain (scale score 7-10)) Qty: 60 0RF Discharge Orders: Discharge Order (Routine); Ordered 12/01/23 Ordered By: Nabila Mora/Other Patient Handouts: A1C Admission Data Admit Date/Time: 11/27/23 10:15 Attending Provider: Nabila Medeiros I. Admit Provider: Kaitlin Mcmullen Primary Care Provider: Wood Genao Other Providers: Kaitlin Mcmullen; Derik Macias Muqueet; Alma Perez
[2023-12-01] MEDS ORDERED: ALBUTEROL 0.083% NEBU SOLN 3 ML VIAL NEB PRN (16:20)
== END 2023-12-01 18:27 | disposition hospice, home (50) | DRG 871 ==
LOC: ED 07:30 → 2S 10:15 → SUATTDRO 10:15 → 2S 12:15
DX: J96.01 Acute respiratory failure with hypoxia; R65.20 Severe sepsis without septic shock; Z86.14 Personal history of Methicillin resistant Staphylococcus aureus infection; Z87.891 Personal history of nicotine dependence; I48.0 Paroxysmal atrial fibrillation; Z86.16 Personal history of COVID-19; J18.9 Pneumonia, unspecified organism; Z79.60 Long term (current) use of unspecified immunomodulators and immunosuppressants; Z66 Do not resuscitate; Z92.3 Personal history of irradiation; E11.9 Type 2 diabetes mellitus without complications; C34.92 Malignant neoplasm of unspecified part of left bronchus or lung; A41.9 Sepsis, unspecified organism; E87.1 Hypo-osmolality and hyponatremia; Z51.5 Encounter for palliative care; J98.4 Other disorders of lung; J94.8 Other specified pleural conditions; B19.20 Unspecified viral hepatitis C without hepatic coma